=== PATIENT | female | born 1950 | race Caucasian/White ===

== ENCOUNTER 2020-03-30 10:40 | Outpatient (CLI) | payer MEDICARE, SELFPAY ==
[2020-03-30 11:53] LABS: Creatinine Urine 123.5 mg/dL
[2020-03-30 12:04] LABS: Albumin Level 4.2 g/dL (3.5-5.1); Blood Urea Nitrogen 37 mg/dL (7-17); Calcium 9.3 mg/dL (8.4-10.2); Carbon Dioxide 27 mmol/L (22-30); Chloride 104 mmol/L (98-107); Estimated Glomerular Filt Rate 25; Glucose 204 mg/dL (65-105); Phosphorus 3.8 mg/dL (2.5-4.5); Potassium 4.4 mmol/L (3.4-5.0); Sodium 139 mmol/L (137-145)
[2020-03-30 12:08] LABS: Total Protein Urine Random 294 mg/dL
[2020-03-30 12:12] LABS: Parathyroid Intact 71.5 pg/mL (7.5-53.5)
[2020-03-30 13:11] LABS: Vitamin D 25 Hydroxy 57.3 ng/mL
== END 2020-03-30 10:41 | disposition home or self-care (01) ==
PROVIDERS: PCP Family Medicine; Visit Provider Internal Medicine Nephrology
DX: I12.9 Hypertensive chronic kidney disease with stage 1 through stage 4 chronic kidney disease, or unspecified chronic kidney disease (principal); N18.4 Chronic kidney disease, stage 4 (severe); E11.29 Type 2 diabetes mellitus with other diabetic kidney complication; R80.8 Other proteinuria
CPT/HCPCS: 36415; 80069; 82306; 82570; 83970; 84156

== ENCOUNTER 2020-04-17 08:50 | Inpatient (IN) | payer MEDICARE, SELFPAY ==
[2020-04-17] VITALS (14 sets, daily range): BP systolic 99–122; BP diastolic 45–91; PULSE 98–121; RESP 20–30; TEMP 36.6–37.6; O2SAT 91–95; BMI 41.3
--- NOTE | ~2020-04-17 | NM_ITS ---
EXAMINATION: NM pulmonary perfusion DATE: 04/18/2020 11:12 INDICATION: Shortness of breath. TECHNIQUE: 4.85 mCi Tc-99m MAA was administered intravenously for perfusion images. Scintigraphic im ages of the chest were obtained. COMPARISON: chest single view 04/17/20, chest CT 04/17/20 FINDINGS: Perfusion images show large defects in the basilar segments of the right lower lobe and small and mod erate sized defects in the basilar segments of the left lower lobe. These defects match the distribut ion of abnormal chest CT findings. ] IMPRESSION: 1. Nondiagnostic (low or intermediate probability). Reviewed, dictated and finalized at location A.
--- NOTE | ~2020-04-17 | XR_ITS ---
EXAMINATION: XR chest 1V portable DATE: 04/17/2020 10:01 INDICATION: Cough TECHNIQUE: frontal view of the chest was obtained. COMPARISON: Chest radiograph dated 08/13/2016 FINDINGS: The lungs are clear with no focal airspace opacities, pulmonary edema, pleural effusion or pneumothor ax. The cardiomediastinal silhouette is normal. Surgical clips at the left axilla. IMPRESSION: 1. No acute cardiopulmonary disease. Reviewed, dictated and finalized at location A.
--- NOTE | ~2020-04-17 | CT_ITS ---
EXAMINATION: CT chest high resolution wo co DATE: 04/17/2020 12:57 INDICATION: cough, SOB, leukocytosis TECHNIQUE: Computed tomography (CT) of the chest was performed without intravenous contrast. Addition al 3D reconstructions utilizing coronal maximum intensity projection (MIP) were performed. Automated exposure control and iterative reconstruction technique were employed. The dose-length product was 61 5.97 mGy-cm. COMPARISON: None FINDINGS: Linear and patchy airspace opacities in the bilateral lower lobes with dependent predominance. No smo oth septal line thickening to suggest pulmonary edema. There are scattered subsegmental regions of ai r trapping likely related to small airway disease. No pleural effusion or pneumothorax. Cardiomegaly. Atherosclerotic coronary artery disease with likely coronary artery stenting. No pericardial effusio n. No pathologically enlarged thoracic lymphadenopathy. Small sliding-type hiatal hernia. Cholelithia sis in the dependent gallbladder. Mild thoracic spondylosis with bridging osteophytes at multiple lev els consistent with diffuse idiopathic skeletal hyperostosis (DISH). IMPRESSION: 1. Linear and patchy airspace opacities in the bilateral lower lobes which could represent atelectasi s, pneumonia or organizing pneumonia. 2. Cardiomegaly. 3. Cholelithiasis. Reviewed, dictated and finalized at location A. IMPRESSION: 1. Linear and patchy airspace opacities in the bilateral lower lobes which coul d represent atelectasis, pneumonia or organizing pneumonia. 2. Cardiomegaly. 3. Cholelithiasis.
--- NOTE | ~2020-04-17 | XR_ITS ---
XR chest 2V 04/20/2020 16:43 Indication: Pneumonia follow-up Procedure: PA and lateral views of the chest Comparison: Comparison to multiple prior studies sequentially, with oldest reviewed study dated 03/2016. Findings: There is developing bibasilar airspace disease. Heart size normal. Mediastinal contour stab le. No pleural effusion or pneumothorax. There are surgical clips overlying the left chest. Impression: 1: Developing bibasilar airspace disease which may represent atelectasis and/or pneumonia. Reviewed, dictated and finalized at location A. Impression: 1: Developing bibasilar airspace disease which may represent atelectasis and/or pneumonia.
--- NOTE | 2020-04-17 09:16 | ECG_ITS ---
Measurements Intervals [place] Rate: 114 P: 4 NM: 159 QRS: -8 QRSD: 83 T: 34 QT: 331 QTc: 456 Interpretive Statements SINUS TACHYCARDIA BASELINE WANDER- III, AVF, V1 ABNORMAL ECG Electronically Signed On 04-18-2020 7:16:00 CDT by Titi Oviedo D.O.
--- NOTE | 2020-04-17 09:50 | ED.SOB ---
HPI - SOB/Dyspnea General Chief Complaint: Shortness of Breath/Dyspnea Stated Complaint: Fever, sob Source: patient Mode of arrival: wheelchair Limitations: clinical condition (SOB, weakness) History of Present Illness HPI Narrative: 49 y.o. with new onset SOB and D.O.E., onset Saturday, 04/11, associated with progressive weakness, occasional cough and chills Denies fever. Denies chest pain/wheezing. Daily diarrhea and nausea x 7 days with occasional vomiting, last vomited this AM. Denies hematochezia, melena, mucous in stools. Slid off toilet 4 days ago. Laid on floor for about 10 hours before son was able to help her get up. Denies hitting head or subsequent bruising. Has had tenderness in both hips since then. Vaginal bleeding and clots, 04/06 - 04/08. Has not seen a provider ([email or web address]) about this. Hx. of M.I., followed by cardiology. Pt states recently blood sugars have been between 100 and 40. Full code. Treatment prior to arrival: none Related Data Home oxygen amount: none Home Medications Medication Instructions Recorded Confirmed aspirin 81 mg tablet,delayed 81 mg PO DAILY 01/07/20 04/17/20 release cholecalciferol (vitamin D3) 25 1,000 unit PO DAILY cap 01/07/20 04/17/20 mcg (1,000 unit) capsule icosapent ethyl 1 gram capsule 2 gm PO BID 01/07/20 04/17/20 insulin regular hum U-500 conc See Rx Instructions SUB-Q DAILY ml 01/07/20 04/17/20 pantoprazole 40 mg tablet,delayed 40 mg PO QAM 01/07/20 04/17/20 release potassium citrate 10 mEq (1,080 20 meq PO TID tablet 01/07/20 04/17/20 mg) tablet,extended release Allergies Allergy/AdvReac Type Severity Reaction Status Date / Time adhesive tape Allergy Unknown rash Verified 03/02/20 11:08 [email or web address] Allergy Unknown rash Verified 03/02/20 11:08 peach Allergy Unknown throat Verified 03/02/20 11:08 closes adhesive AdvReac Intermediate TAPE= RASH Verified 03/02/20 11:08 DYE USED FOR CLOTHING Allergy Unknown SWELLING, Uncoded 03/02/20 11:08 INFECTION FROM DYE Review of Systems Constitutional: Constitutional: Reports no additional constitutional complaints Eyes: Eyes: Denies photophobia ENT: Reports nasal congestion and Denies sore throat Comments: no loss of smell Cardiovascular: Cardiovascular: Reports no additional cardiovascular complaints Respiratory: Respiratory: Reports no additional respiratory complaints Gastrointestinal: Gastrointestinal: Denies abdominal pain Genitourinary: Genitourinary: Denies dysuria Comments: See HPI Musculoskeletal: Musculoskeletal: Reports no additional musculoskeletal complaints Integumentary/Breasts: Skin/Breast: Denies rash Neurologic: Denies dizziness, Denies syncope and Denies headache(s) Hematologic/Lymphatic: Hematologic/Lymphatic: Denies easy bleeding Allergic/Immunologic: Allergic/Immunologic: Denies wheezing PMFSH Past Medical History Medical History (Updated 04/17/20 @ 13:01 by Abel Jimenez MD) Arthritis Breast cancer Heart disease Hypertension Kidney stone Surgical History Surgical History H/O heart artery stent Family History Family History Mother Family history of diabetes mellitus in first degree relative Other CHF (congestive heart failure), NYHA class I Cancer Diabetes mellitus Family history of arthritis Family history of cardiovascular disease Family history of congestive heart failure Family history of hearing loss Family history of heart disease in male family member before age 55 Family history of malignant neoplasm Family history of obesity Family history of thyroid disease Heart disease Hypertension Thyroid disease Social History Social History (Updated 04/17/20 @ 10:05 by Abel Jimenez MD) Smoking status: Former smoker Alcohol intake: current Comments Stopped smoking many years
[2020-04-17] MEDS: ONDANSETRON INJ 4 MG/2 ML VIAL IV PUSH (10:01)
[2020-04-17] MEDS: LACTATED RINGERS 1,000 ML 100 ML IV CONT (10:02)
[2020-04-17] MEDS: ALBUTEROL SULFATE (*SP) INHALER 8 PUFF INHALATION ×3 (10:46→21:13)
[2020-04-17 11:04] LABS: Hematocrit 40.2 % (35.0-42.0); Hemoglobin 13.3 g/dL (11.7-13.8); Mean Corpuscular HGB Conc 33.1 g/dL (32.0-36.0); Mean Corpuscular Hemoglobin 28.3 pg (27.0-31.0); Mean Corpuscular Volume 85.5 fL (78.0-102.0); Mean Platelet Volume 10.9 fl (9.2-11.8); Platelet Count Result 260 K/mm3 (150-420); Red Cell Distribution Width 15.9 % (11.6-14.4)
--- NOTE | 2020-04-17 11:19 | PC.NURSE ---
Report given to Jared Torres Pt. resting at this time c no c/o. Awaiting lab results.
[2020-04-17 11:24] LABS: Add Urine Microscopic? YES; Appearance Urine Cloudy (Clear); Bilirubin Urine Negative (Negative); Blood Urine 2+ (Negative); Color Urine Yellow (Yellow); Glucose Urine UA Negative (Negative); Ketones Urine Negative (Negative); Leukocyte Esterase Ur 1+ (Negative); Nitrate Urine Negative (Negative); Protein Urine 2+ (Negative); Urobilinogen Urine 0.2 mg/dL (0.2-1.0)
[2020-04-17 11:27] LABS: Lactic Acid 1.6 mmol/L (0.4-2.0)
[2020-04-17 11:29] LABS: Influenza Control Valid (Valid)
[2020-04-17 11:30] LABS: Bacteria Urine 4+ /hpf; Mucus Urine None seen /lpf; Squamous Epithelial Cell Urine Few /hpf (Few); WBC Urine 31-50 /hpf (0-3)
[2020-04-17 11:37] LABS: Alanine Aminotransferase 26 U/L (14-59); Albumin Level 2.1 g/dL (3.4-5.0); Alkaline Phosphatase 124 U/L (46-116); Anion Gap 11.6 mmol/L (7-16); Aspartate Amino Transferase 29 U/L (15-37); Bilirubin,Total 0.9 mg/dL (0.00-1.00); Blood Urea Nitrogen 28 mg/dL (7-18); Carbon Dioxide 25 mmol/L (21-32); Chloride 98 mmol/L (98-108); Creatine Kinase 165 U/L (26-192); Estimated CRCL calculation 25 ml/min; Estimated Glomerular Filt Rate 19; Glucose 84 mg/dL (70-99); Osmolality Calculated 274 mOsm/kg (285-295); Potassium 4.6 mmol/L (3.5-5.1); Sodium 130 mmol/L (136-145); Total Protein 7.3 g/dL (6.4-8.2)
[2020-04-17 11:38] LABS: Ferritin 253 ng/mL (8-252)
[2020-04-17 11:39] LABS: Band Neutrophils Percent 2 % (0-6); Eosinophils Percent Manual 0 % (1-6); Lymphocytes Absolute Manual 0.88 K/mm3 (1.1-4.5); Lymphocytes Percent Manual 4 % (18-44); Monocytes Percent Manual 5 % (3-9); Neutrophils Absolute Manual 20.02 K/mm3 (1.7-7.2); Neutrophils Percent Manual 89 % (46-73); Platelet Estimate Adequate (Adequate); Total Cells Counted 100
[2020-04-17 11:41] LABS: Troponin I < 0.02 ng/mL (0.00-0.056)
[2020-04-17 11:44] LABS: INR 1.1; Prothrombin Time 11.3 Seconds (9.64-11.0)
[2020-04-17 11:49] LABS: D Dimer 4.63 mg/L (0.19-0.50)
[2020-04-17 12:30] LABS: Base Excess ABG -0.8 mmol/L (0-2); HCO3 ABG 21.9 mmol/L (23-29); Oxygen Content ABG 16.5 %vol (16.0-22.0); Oxyhemoglobin 92.7 % (94-100); PCO2 ABG 30.4 mmHg (35-45); PO2 ABG 70.2 mmHg (75-85); Site Drawn RIGHT RADIAL; Total Hemoglobin 12.6 g/dL; pH ABG 7.48 (7.35-7.45)
[2020-04-17 12:31] LABS: Device NASAL CANNULA; Liters per Minute 3.5 LPM; Modified Allen's Test Pass
[2020-04-17] MEDS: ENOXAPARIN 1 MG/KG 120 MG SUB-Q (13:02)
[2020-04-17 13:08] LABS: BNP 108 pg/mL (0-100)
--- NOTE | 2020-04-17 13:10 | PC.NURSE ---
VORB FOR INCREASE LR TO 999ML/HR PER DR VALERO.
--- NOTE | 2020-04-17 13:23 | PM.IMHP ---
H&P: HPI History of Present Illness Chief complaint: Fever, sob <SKYE Alas - Last Filed: 04/17/20 14:50> Narrative: Jesika Falk is a 69 year old female that presented to the ED today with shortness of breath , nausea and vomiting with diarrhea and low blood sugars. patient has a past medical history of arthritis, cancer, hypertension , kidney disease. according to patient she developed weakness with a cough and chills with fevers approximately a week ago. She later developed nausea and diarrhea.she noted that since she has been wearing the mask for 3 weeks she has had a problem with breathing, and when she takes it off her breathing is okay Patient noted that last week while sitting on the toilet she became weak and slid off of the toilet and that her blood sugar has been persistently low. She also noted that she has vaginal bleeding that is new to her. patient notes she has not talked to her primary care physician concerning any of these matters. She notes that her primary care physician never returned any of her calls and she has just changed primary care physicians. she also noted that she does not come to [facility] and she does not know why her son even brought her to this hospital he should have took her to [place]. while patient was in the ED a chest x-ray was completed which was unremarkable, CT suggestive pneumonia, lactic acid normal 1.6 ,creatinine 2.5 GFR 19 UA indicated leukocytes, red blood cells ,white blood cells and bacteria. D-dimer was elevated 4.63 patient was tested for influenza which was negative COVID-19 is pending V/Q scan also pending vital signs 121/75, 119, 26, 93%, on 3 L nasal cannula with a temperature of 99.6?. she did have nausea while in the ED patient will continue to receive fluid Levaquin order to cover UTI as well as pneumonia .patient remains on oxygen with inhalers ordered .she is also receiving Lovenox for possible PE.. Patient denies , CP, palpitation, extremity numbness, lightheadness, dizziness, constipation, , chills or fever. <SKYE Alas - Last Filed: 04/17/20 14:50> Review of Systems Review of Systems: Narrative: CONSTITUTIONAL : patient complains of weakness and fatigue . also previous fevers and chills HEENT: Eyes: No diplopia or blurred vision. ENT: No earache, sore throat or runny nose. CARDIOVASCULAR: No pressure, squeezing, strangling, tightness, heaviness or aching about the chest, neck, axilla or epigastrium. RESPIRATORY: patient complains of cough, shortness of breath, GASTROINTESTINAL: patient complains of nausea, vomiting or diarrhea. GENITOURINARY: No dysuria, frequency or urgency. MUSCULOSKELETAL: No muscle, back pain, joint pain or stiffness. SKIN: No change in skin, hair or nails. NEUROLOGIC: No paresthesias, fasciculations, seizures or weakness. PSYCHIATRIC: No disorder of thought or mood. ENDOCRINE: No heat or cold intolerance, polyuria or polydipsia. HEMATOLOGICAL: No easy bruising or bleeding. gynecological- vaginal bleeding <SKYE Alas - Last Filed: 04/17/20 14:50> [facility] Past Medical History Medical History: Medical History (Updated 04/17/20 @ 14:48 by SKYE Alas) Arthritis Breast cancer Heart disease Hypertension Kidney stone <SKYE Alas - Last Filed: 04/17/20 14:50> Surgical History Surgical History: Surgical History H/O heart artery stent <SKYE Alas - Last Filed: 04/17/20 14:50> Family History Family History: Family History Mother Family history of diabetes mellitus in first degree relative Other CHF (congestive heart failure), NYHA class I Cancer Diabetes mellitus Family history of arthritis Family history of cardiovascular disease Family history of congestive heart failure Family history of hearing loss Family history o
--- NOTE | 2020-04-17 13:46 | PC.NURSE ---
Admitted for weakness, UTI, possible covid, test pending, states no fever at home, states did have a week of nausea vomiting, diarrhea and vaginal bleeding, nothing since saturday, took a shower, felt dizzy, sat on toilet and noted sugar low, did have an episode of falling after shower this week, no injury, just back pain, kemp from ER draining, reviewed visitor policy with patient and oriented to room and hospital setting
[2020-04-17] MEDS: LACTATED RINGERS 1,000 ML 999 ML IV CONT (14:24)
--- NOTE | 2020-04-17 15:29 | PC.NURSE ---
Resting in bed, pillow placed under buttocks for comfort, kemp patent and draining, fluids infusing, taking longer to infuse due to location of IV access and need to reset pump frequently
[2020-04-17 16:27] LABS: Glucose Point of Care 103 (65-105)
[2020-04-17] MEDS: oxyCODONE/ACETAMINOPHEN 5-325 MG TABLET 1 TABLET PO (16:36)
[2020-04-17] MEDS: METOPROLOL SUCCINATE EXT REL 25 MG TABCR PO (16:36)
[2020-04-17] MEDS: METOCLOPRAMIDE HCL 2.5 MG TABLET PO (16:37)
[2020-04-17] MEDS: PHARMACIST COMMUNICATION ORDER 1 EACH XX (19:11)
[2020-04-17] MEDS: METOCLOPRAMIDE HCL 10 MG/10 ML SOLN UDC 2.5 MG PO (21:11)
[2020-04-17 21:56] LABS: Glucose Point of Care 171 (65-105)
[2020-04-18] VITALS (8 sets, daily range): BP systolic 101–141; BP diastolic 55–74; PULSE 96–104; RESP 18–22; TEMP 36.6–37.1; O2SAT 94–96
[2020-04-18 05:20] LABS: Hemoglobin 11.2 g/dL (11.7-13.8); Mean Corpuscular HGB Conc 32.9 g/dL (32.0-36.0); Mean Corpuscular Hemoglobin 28.6 pg (27.0-31.0); Mean Corpuscular Volume 86.7 fL (78.0-102.0); Platelet Count Result 229 K/mm3 (150-420); Red Blood Count 3.92 M/mm3 (4.20-5.40); Red Cell Distribution Width 15.9 % (11.6-14.4)
[2020-04-18 05:38] LABS: Alanine Aminotransferase 24 U/L (14-59); Albumin Level 1.9 g/dL (3.4-5.0); Alkaline Phosphatase 110 U/L (46-116); Anion Gap 11.6 mmol/L (7-16); Aspartate Amino Transferase 21 U/L (15-37); Bilirubin,Total 0.8 mg/dL (0.00-1.00); Blood Urea Nitrogen 27 mg/dL (7-18); Calcium 8.5 mg/dL (8.5-10.1); Carbon Dioxide 26 mmol/L (21-32); Chloride 99 mmol/L (98-108); Estimated CRCL calculation 23 ml/min; Estimated Glomerular Filt Rate 18; Glucose 162 mg/dL (70-99); Osmolality Calculated 283 mOsm/kg (285-295); Potassium 4.6 mmol/L (3.5-5.1); Sodium 132 mmol/L (136-145); Total Protein 6.6 g/dL (6.4-8.2)
[2020-04-18 05:49] LABS: CRP 23.8 mg/dL (0.0-0.9)
[2020-04-18] MEDS: METOCLOPRAMIDE HCL 10 MG/10 ML SOLN UDC 2.5 MG PO (06:11)
[2020-04-18] MEDS: ALBUTEROL SULFATE (*SP) INHALER 8 PUFF INHALATION (06:16)
--- NOTE | 2020-04-18 07:10 | PC.NURSE ---
Dr. Sanz notified of results for pt's blood cultures. No new orders at this time.
[2020-04-18 09:01] LABS: Glucose Point of Care 177 (65-105)
[2020-04-18] MEDS: METOPROLOL SUCCINATE EXT REL 25 MG TABCR PO ×2 (10:04→17:13)
[2020-04-18] MEDS: NIFEdipine 30 MG TAB.ER.24 PO (10:05)
[2020-04-18] MEDS: CHOLECALCIFEROL 1,000 UNIT TABLET 1000 UNITS PO (10:05)
[2020-04-18] MEDS: PANTOPRAZOLE 40 MG TABLET PO (10:05)
[2020-04-18] MEDS: POTASSIUM CHLORIDE 20 MEQ TABLET 40 MEQ PO (10:05)
--- NOTE | 2020-04-18 11:31 | P.PNIM_ITS ---
Progress Note: A&P Assessment and Plan (1) Urinary tract infection: Qualifiers: Hematuria presence: with hematuria Urinary tract infection type: site unspecified Qualified Code(s): N39.0 - Urinary tract infection, site not specified; R31.9 - Hematuria, unspecified <Melissa Chavez NP - Last Filed: 04/18/20 14:43> Code(s): N39.0 - Urinary tract infection, site not specified <Melissa Chavez NP - Last Filed: 04/18/20 14:43> Status: Acute <Melissa Chavez NP - Last Filed: 04/18/20 14:43> Assessment and Plan: * UA indicates leukocytes, red blood cells, wbc's and bacteria * UA culture pending * started IV Levaquin day 2 * Tylenol for fever * urinary kemp catheter remains in place, patent, with clear urine, * will D/C kemp catheter when patient able to use bedside commode or after PT/OT evaulation. <Melissa Chavez NP - Last Filed: 04/18/20 14:43> (2) Breath shortness: Code(s): R06.02 - Shortness of breath <Melissa Chavez NP - Last Filed: 04/18/20 14:43> Status: Acute <Melissa Chavez NP - Last Filed: 04/18/20 14:43> Assessment and Plan: * Rule out COVID-19 versus pneumonia versus PE versus severe deconditioning. * COVID-19 testing pending * Her CT scan showed bilateral lower opacities with cardiomegaly and cholelithiasis (Linear and patchy airspace opacities in the bilateral lower lobes with dependent predominance. No smooth septal line thickening to suggest pulmonary edema). * Her Perfusion scan images show large defects in the basilar segments of the right lower lobe and small and moderate sized defects in the basilar segments of the left lower lobe. These defects match the distribution of abnormal chest CT findings. But a low or intermediate probability of a PE. * Continue IV levaquin dosing * ordered Mucinex and Incentive spirometry. * continue with Albuterol inhaler and nebulizer treatments * continued use of supplemental oxygen per [place] * blood and urine culture pending, ordered sputum cultures. * no fevers noted, WBC 22 inproved to 18 today. * lactic acid 1.6 normal <Melissa Chavez NP - Last Filed: 04/18/20 14:43> (3) Weakness: Code(s): R53.1 - Weakness <Melissa Chavez NP - Last Filed: 04/18/20 14:43> Status: Acute <Melissa Chavez NP - Last Filed: 04/18/20 14:43> Assessment and Plan: * possibly caused by chronic de-conditioning, co-morbities, hypoglycemia, nausea vomiting diarrhea versus infection versus PE * ordered physical therapy/ occupational therapy evaluation after COVID rule out * consider SWING rehab placement when appropriate * discontinue Urinary Kemp catheter tomorrow, likely have improved strength by then, already doing better today with transfers than yesterday. <Melissa Chavez NP - Last Filed: 04/18/20 14:43> (4) Type 2 diabetes mellitus with hyperglycemia, with long-term current use of insulin: Code(s): E11.65 - Type 2 diabetes mellitus with hyperglycemia; Z79.4 - detention (current) use of insulin <Melissa Chavez NP - Last Filed: 04/18/20 14:43> Status: Acute <Melissa Chavez NP - Last Filed: 04/18/20 14:43> Assessment and Plan: * blood sugar controlled, 100-200s today. * patient A1c 10.5 * continue Accu-Cheks with sliding scale and hypoglycemic protocol * patient currently on low-dose sliding scale will adjust as needed * patient home regimen consists 95 units b.i.d. and 50 units once * continue diabetic diet * nausea vomiting diarrhea - completely resolved. * will need to follow up with her regular Endocrinologi
--- NOTE | 2020-04-18 11:31 | PM.IMPN ---
Progress Note: A&P Assessment and Plan (1) Urinary tract infection: Qualifiers: Hematuria presence: with hematuria Urinary tract infection type: site unspecified Qualified Code(s): N39.0 - Urinary tract infection, site not specified; R31.9 - Hematuria, unspecified <Melissa Chavez NP - Last Filed: 04/18/20 14:43> Code(s): N39.0 - Urinary tract infection, site not specified <Melissa Chavez NP - Last Filed: 04/18/20 14:43> Status: Acute <Melissa Chavez NP - Last Filed: 04/18/20 14:43> Assessment and Plan: UA indicates leukocytes, red blood cells, wbc's and bacteria UA culture pending started IV Levaquin day 2 Tylenol for fever urinary kemp catheter remains in place, patent, with clear urine, will D/C kemp catheter when patient able to use bedside commode or after PT/OT evaulation. <Melissa Chavez NP - Last Filed: 04/18/20 14:43> (2) Breath shortness: Code(s): R06.02 - Shortness of breath <Melissa Chavez NP - Last Filed: 04/18/20 14:43> Status: Acute <Melissa Chavez NP - Last Filed: 04/18/20 14:43> Assessment and Plan: Rule out COVID-19 versus pneumonia versus PE versus severe deconditioning. COVID-[address] scan showed bilateral lower opacities with cardiomegaly and cholelithiasis (Linear and patchy airspace opacities in the bilateral lower lobes with dependent predominance. No smooth septal line thickening to suggest pulmonary edema). Her Perfusion scan images show large defects in the basilar segments of the right lower lobe and small and moderate sized defects in the basilar segments of the left lower lobe. These defects match the distribution of abnormal chest CT findings. But a low or intermediate probability of a PE. Continue IV levaquin dosing ordered Mucinex and Incentive spirometry. continue with Albuterol inhaler and nebulizer treatments continued use of supplemental oxygen per [place] blood and urine culture pending, ordered sputum cultures. no fevers noted, WBC 22 inproved to 18 today. lactic acid 1.6 normal <Melissa Chavez NP - Last Filed: 04/18/20 14:43> (3) Weakness: Code(s): R53.1 - Weakness <Melissa Chavez NP - Last Filed: 04/18/20 14:43> Status: Acute <Melissa Chavez NP - Last Filed: 04/18/20 14:43> Assessment and Plan: possibly caused by chronic de-conditioning, co-morbities, hypoglycemia, nausea vomiting diarrhea versus infection versus PE ordered physical therapy/ occupational therapy evaluation after COVID rule out consider SWING rehab placement when appropriate discontinue Urinary Kemp catheter tomorrow, likely have improved strength by then, already doing better today with transfers than yesterday. 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 patient A1c 10.5 continue Accu-Cheks with sliding scale and hypoglycemic protocol patient currently on low-dose sliding scale will adjust as needed patient home regimen consists 95 units b.i.d. and 50 units once continue diabetic diet nausea vomiting diarrhea - completely resolved. will need to follow up with her regular [employer]. <Melissa Chavez NP - Last Filed: 04/18/20 14:43> (5) Stage 4 chronic kidney disease: Code(s): N18.4 - Chronic kidney disease, stage 4 (severe) <Melissa Chavez NP - Last Filed: 04/18/20 14:43> Status: Acute <Melissa Chavez NP - Last Filed: 04/18/20 14:43> Assessment and Plan: rick
[2020-04-18] MEDS: guaiFENesin 12 HR 600 MG TABCR 1200 MG PO ×2 (12:06→20:10)
[2020-04-18 12:18] LABS: Glucose Point of Care 223 (65-105)
[2020-04-18] MEDS: ALBUTEROL SULFATE (*SP) INHALER 4 PUFF INHALATION ×3 (12:18→20:10)
[2020-04-18] MEDS: ENOXAPARIN 120 MG/0.8 ML SYRINGE SUB-Q (14:46)
[2020-04-18 17:36] LABS: Glucose Point of Care 208 (65-105)
[2020-04-18 20:02] LABS: SARS-CoV-2 RNA PCR Negative
[2020-04-18] MEDS: FLUTICASONE PROPIONATE 0.05% NA SPR 16 GM BTL (*BKC) 1 SPRAY NASAL (20:11)
--- NOTE | 2020-04-18 21:31 | PC.NURSE ---
Patient's COVID test is negative. Patient and belongings moved to room 226.
[2020-04-19] VITALS (8 sets, daily range): BP systolic 120–140; BP diastolic 53–76; PULSE 86–95; RESP 18–22; TEMP 36.6–37.5; O2SAT 89–98
[2020-04-19 05:35] LABS: Basophils Absolute Auto 0.04 K/mm3 (0.00-0.10); Basophils Percent Auto 0.3 % (0.0-1.0); Eosinophils Absolute Auto 0.16 K/mm3 (0.02-0.50); Eosinophils Percent Auto 1.2 % (1.0-6.0); Hematocrit 34.4 % (35.0-42.0); Hemoglobin 11.3 g/dL (11.7-13.8); Immature Granulocyte Absolute 0.17 K/mm3 (0.00-0.00); Immature Granulocyte Percent A 1.3 % (0.0-0.0); Lymphocytes Absolute Auto 0.86 K/mm3 (1.10-4.50); Lymphocytes Percent Auto 6.3 % (18.0-42.0); Mean Corpuscular HGB Conc 32.8 g/dL (32.0-36.0); Mean Corpuscular Hemoglobin 28.4 pg (27.0-31.0); Mean Corpuscular Volume 86.4 fL (78.0-102.0); Mean Platelet Volume 11.1 fl (9.2-11.8); Monocytes Absolute Auto 0.74 K/mm3 (0.10-0.90); Monocytes Percent Auto 5.5 % (2.0-11.0); Neutrophils Absolute Auto 11.6 K/mm3 (1.7-7.2); Neutrophils Percent Auto 85.4 % (50.0-70.0); Platelet Count Result 241 K/mm3 (150-420); Red Blood Count 3.98 M/mm3 (4.20-5.40); Red Cell Distribution Width 15.8 % (11.6-14.4); White Blood Count 13.6 K/mm3 (4.8-10.8)
[2020-04-19 05:55] LABS: Alanine Aminotransferase 24 U/L (14-59); Albumin Level 1.9 g/dL (3.4-5.0); Alkaline Phosphatase 121 U/L (46-116); Anion Gap 13.4 mmol/L (7-16); Aspartate Amino Transferase 20 U/L (15-37); Bilirubin,Total 0.6 mg/dL (0.00-1.00); Blood Urea Nitrogen 28 mg/dL (7-18); Calcium 8.8 mg/dL (8.5-10.1); Carbon Dioxide 25 mmol/L (21-32); Chloride 100 mmol/L (98-108); Estimated CRCL calculation 27 ml/min; Estimated Glomerular Filt Rate 21; Glucose 173 mg/dL (70-99); Magnesium 1.9 mg/dL (1.8-2.4); Osmolality Calculated 287 mOsm/kg (285-295); Potassium 4.4 mmol/L (3.5-5.1); Sodium 134 mmol/L (136-145); Total Protein 7.2 g/dL (6.4-8.2)
[2020-04-19 08:19] LABS: BNP 134 pg/mL (0-100)
[2020-04-19 08:34] LABS: CRP 23.4 mg/dL (0.0-0.9)
[2020-04-19] MEDS: CHOLECALCIFEROL 1,000 UNIT TABLET 1000 UNITS PO (08:57)
[2020-04-19] MEDS: guaiFENesin 12 HR 600 MG TABCR 1200 MG PO ×2 (08:57→20:42)
[2020-04-19] MEDS: NIFEdipine 30 MG TAB.ER.24 PO (08:57)
[2020-04-19] MEDS: METOPROLOL SUCCINATE EXT REL 25 MG TABCR PO (08:58)
[2020-04-19] MEDS: POTASSIUM CHLORIDE 20 MEQ TABLET 40 MEQ PO (08:58)
[2020-04-19] MEDS: LORATADINE 10 MG TABLET PO (08:58)
[2020-04-19] MEDS: PANTOPRAZOLE 40 MG TABLET PO (08:58)
[2020-04-19] MEDS: FLUTICASONE PROPIONATE 0.05% NA SPR 16 GM BTL (*BKC) 1 SPRAY NASAL ×2 (08:59→20:42)
[2020-04-19 09:00] LABS: Erythrocyte Sedimentation Rate 52 mm/hr (0-20)
[2020-04-19] MEDS: ALBUTEROL SULFATE (*SP) INHALER 4 PUFF INHALATION ×4 (09:00→20:43)
--- NOTE | 2020-04-19 10:33 | PC.NURSE ---
Lott discontinued, in chair, encouraged to call for assistance up to void
[2020-04-19 12:09] LABS: Glucose Point of Care 200 (65-105)
--- NOTE | 2020-04-19 12:46 | PC.NURSE ---
Up to SBA to void
--- NOTE | 2020-04-19 12:51 | PC.NURSE ---
SBA used from bathroom to bed, denies needs, no dizzyness, telemetry SR 80's
--- NOTE | 2020-04-19 13:51 | PHAR ---
04/19/20 13:50 - spoke /[facility]. pt. takes metoprolol tartrate 25mg bid, not metoprolol succinate 25mg ER bid. Informed shank sorter, changing her inpatient regimen. tls
[2020-04-19] MEDS: ENOXAPARIN 120 MG/0.8 ML SYRINGE SUB-Q (14:48)
--- NOTE | 2020-04-19 15:22 | PC.NURSE ---
Assisted up to void, used walker, stress incontinence noted, to chair when done
--- NOTE | 2020-04-19 15:32 | P.PNIM_ITS ---
Progress Note: A&P Assessment and Plan (1) Urinary tract infection: Qualifiers: Hematuria presence: with hematuria Urinary tract infection type: site unspecified Qualified Code(s): N39.0 - Urinary tract infection, site not specified; R31.9 - Hematuria, unspecified Code(s): N39.0 - Urinary tract infection, site not specified Status: Acute Assessment and Plan: * UA indicates leukocytes, red blood cells, wbc's and bacteria * UA culture Positive for E coli with sensitivities to Levaquin * continue IV Levaquin day 3 * Tylenol for fever * urinary kemp catheter remains in place, patent, with clear urine, * will D/C kemp catheter when patient able to use bedside commode or after PT/OT evaulation. (2) Breath shortness: Code(s): R06.02 - Shortness of breath Status: Acute Assessment and Plan: * Ruled out COVID-19 and ruled out PE. * Likely CAP pneumonia versus severe deconditioning. * Her CT scan showed bilateral lower opacities with cardiomegaly and cholelithiasis (Linear and patchy airspace opacities in the bilateral lower lobes with dependent predominance. No smooth septal line thickening to suggest pulmonary edema). * Her Perfusion scan images show large defects in the basilar segments of the right lower lobe and small and moderate sized defects in the basilar segments of the left lower lobe. These defects match the distribution of abnormal chest CT findings. But a low or intermediate probability of a PE. * Continue IV levaquin dosing, day 3 today. * ordered Mucinex and Incentive spirometry. * continue with Albuterol inhaler and nebulizer treatments * continued use of supplemental oxygen per [place] PRN, wean as possible. * would benefit from sleep study after discharge. * no fevers noted, WBC 22 inproved to 18 and then 13. 6 today. * lactic acid 1.6 normal * sputum culture ordered, but none able to be collected yet. (3) Weakness: Code(s): R53.1 - Weakness Status: Acute Assessment and Plan: * possibly caused by chronic de-conditioning, co-morbities, hypoglycemia, nausea vomiting diarrhea versus infection versus PE * ordered physical therapy/ occupational therapy evaluation after COVID rule out * consider SWING rehab placement when appropriate * discontinue Urinary Kemp catheter today and void independently without difficulty or complaints. * eating and keeping up with hydration on her own (4) Type 2 diabetes mellitus with hyperglycemia, with long-term current use of insulin: Code(s): E11.65 - Type 2 diabetes mellitus with hyperglycemia; Z79.4 - shelter (current) use of insulin Status: Acute Assessment and Plan: * blood sugar controlled, 100-200s today. * patient A1c 10.5 * continue Accu-Cheks with sliding scale and hypoglycemic protocol * patient currently on low-dose sliding scale will adjust as needed * patient home regimen consists 95 units b.i.d. and 50 units once * continue diabetic diet * nausea vomiting diarrhea - completely resolved. * will need to follow up with her regular Doormaker. (5) Stage 4 chronic kidney disease: Code(s): N18.4 - Chronic kidney disease, stage 4 (severe) Status: Acute Assessment and Plan: * patient's creatinine on admission 2.45, slightly worse 2.61, then improved today at 2.3 * may need to changed medications to avoid further nephrotoxic effects and renal dose medications * creatinine baseline appears to be between 1.8 in 2.0 * continue fluid challenge with hydration * avoid CT contrast * repeating CMP in morning. * GFR 18
--- NOTE | 2020-04-19 15:32 | PM.IMPN ---
Progress Note: A&P Assessment and Plan (1) Urinary tract infection: Qualifiers: Hematuria presence: with hematuria Urinary tract infection type: site unspecified Qualified Code(s): N39.0 - Urinary tract infection, site not specified; R31.9 - Hematuria, unspecified Code(s): N39.0 - Urinary tract infection, site not specified Status: Acute Assessment and Plan: UA indicates leukocytes, red blood cells, wbc's and bacteria UA culture Positive for E coli with sensitivities to Levaquin continue IV Levaquin day 3 Tylenol for fever urinary kemp catheter remains in place, patent, with clear urine, will D/C kemp catheter when patient able to use bedside commode or after PT/OT evaulation. (2) Breath shortness: Code(s): R06.02 - Shortness of breath Status: Acute Assessment and Plan: Ruled out COVID-19 and ruled out PE. Likely CAP pneumonia versus severe deconditioning. Her CT scan showed bilateral lower opacities with cardiomegaly and cholelithiasis (Linear and patchy airspace opacities in the bilateral lower lobes with dependent predominance. No smooth septal line thickening to suggest pulmonary edema). Her Perfusion scan images show large defects in the basilar segments of the right lower lobe and small and moderate sized defects in the basilar segments of the left lower lobe. These defects match the distribution of abnormal chest CT findings. But a low or intermediate probability of a PE. Continue IV levaquin dosing, day 3 today. ordered Mucinex and Incentive spirometry. continue with Albuterol inhaler and nebulizer treatments continued use of supplemental oxygen per [place] PRN, wean as possible. would benefit from sleep study after discharge. no fevers noted, WBC 22 inproved to 18 and then 13. 6 today. lactic acid 1.6 normal sputum culture ordered, but none able to be collected yet. (3) Weakness: Code(s): R53.1 - Weakness Status: Acute Assessment and Plan: possibly caused by chronic de-conditioning, co-morbities, hypoglycemia, nausea vomiting diarrhea versus infection versus PE ordered physical therapy/ occupational therapy evaluation after COVID rule out consider SWING rehab placement when appropriate discontinue Urinary Kemp catheter today and void independently without difficulty or complaints. eating and keeping up with hydration on her own (4) Type 2 diabetes mellitus with hyperglycemia, with long-term current use of insulin: Code(s): E11.65 - Type 2 diabetes mellitus with hyperglycemia; Z79.4 - jail (current) use of insulin Status: Acute Assessment and Plan: blood sugar controlled, 100-200s today. patient A1c 10.5 continue Accu-Cheks with sliding scale and hypoglycemic protocol patient currently on low-dose sliding scale will adjust as needed patient home regimen consists 95 units b.i.d. and 50 units once continue diabetic diet nausea vomiting diarrhea - completely resolved. will need to follow up with her regular Flavor Extractor. (5) Stage 4 chronic kidney disease: Code(s): N18.4 - Chronic kidney disease, stage 4 (severe) Status: Acute Assessment and Plan: patient's creatinine on admission 2.45, slightly worse 2.61, then improved today at 2.3 may need to changed medications to avoid further nephrotoxic effects and renal dose medications creatinine baseline appears to be between 1.8 in 2.0 continue fluid challenge with hydration avoid CT contrast repeating CMP in morning. GFR 18 and 19 baseline appears to be in a 26 will need to follow up with her regular Chemist Pharmaceutical (6) Essential hypertension: Code(s): I10 - Essential (primary) hypertension Status: Acute Assessment and Plan: CONTROLLED at this time, CHRONIC. blood pressure 123/59 continue home medication metoprolol 25 mg b.i.d.,nifedipine 30 mg daily vital signs as or
--- NOTE | 2020-04-19 15:45 | PC.NURSE ---
Recliner adjusted for patient
[2020-04-19 16:31] LABS: Glucose Point of Care 195 (65-105)
[2020-04-19] MEDS: traZODone HCL 50 MG TABLET PO (20:42)
[2020-04-19 20:54] LABS: Glucose Point of Care 222 (65-105)
[2020-04-20] VITALS (8 sets, daily range): BP systolic 119–141; BP diastolic 60–81; PULSE 70–107; RESP 18–22; TEMP 36.6–37.1; O2SAT 92–94
--- NOTE | 2020-04-20 02:28 | PC.NURSE ---
Patient up to bedside recliner per her request at this time.
[2020-04-20 05:00] LABS: Basophils Absolute Auto 0.05 K/mm3 (0.00-0.10); Basophils Percent Auto 0.4 % (0.0-1.0); Eosinophils Percent Auto 1.7 % (1.0-6.0); Hematocrit 37.5 % (35.0-42.0); Hemoglobin 12.1 g/dL (11.7-13.8); Immature Granulocyte Absolute 0.18 K/mm3 (0.00-0.00); Immature Granulocyte Percent A 1.6 % (0.0-0.0); Lymphocytes Absolute Auto 1.03 K/mm3 (1.10-4.50); Lymphocytes Percent Auto 8.9 % (18.0-42.0); Mean Corpuscular HGB Conc 32.3 g/dL (32.0-36.0); Mean Corpuscular Hemoglobin 27.9 pg (27.0-31.0); Mean Corpuscular Volume 86.4 fL (78.0-102.0); Mean Platelet Volume 11.2 fl (9.2-11.8); Monocytes Absolute Auto 0.56 K/mm3 (0.10-0.90); Monocytes Percent Auto 4.8 % (2.0-11.0); Neutrophils Absolute Auto 9.6 K/mm3 (1.7-7.2); Neutrophils Percent Auto 82.6 % (50.0-70.0); Platelet Count Result 283 K/mm3 (150-420); Red Blood Count 4.34 M/mm3 (4.20-5.40); Red Cell Distribution Width 15.7 % (11.6-14.4); White Blood Count 11.6 K/mm3 (4.8-10.8)
[2020-04-20 05:17] LABS: Alanine Aminotransferase 34 U/L (14-59); Albumin Level 2.1 g/dL (3.4-5.0); Alkaline Phosphatase 117 U/L (46-116); Anion Gap 11.6 mmol/L (7-16); Aspartate Amino Transferase 32 U/L (15-37); Bilirubin,Total 0.4 mg/dL (0.00-1.00); Blood Urea Nitrogen 30 mg/dL (7-18); Calcium 9.2 mg/dL (8.5-10.1); Carbon Dioxide 27 mmol/L (21-32); Chloride 100 mmol/L (98-108); Estimated CRCL calculation 27 ml/min; Estimated Glomerular Filt Rate 21; Glucose 204 mg/dL (70-99); Osmolality Calculated 290 mOsm/kg (285-295); Potassium 4.6 mmol/L (3.5-5.1); Sodium 134 mmol/L (136-145); Total Protein 7.7 g/dL (6.4-8.2)
--- NOTE | 2020-04-20 07:12 | PM.EVENT ---
Event Note Event Note Event Note: For 04/19/20: I have examined the patient and reviewed the chart. I discussed the patient's care the with A Scott MAGALLON and agree with her assessment and plan.
[2020-04-20 08:01] LABS: Glucose Point of Care 190 (65-105)
[2020-04-20] MEDS: FLUTICASONE PROPIONATE 0.05% NA SPR 16 GM BTL (*BKC) 1 SPRAY NASAL ×2 (09:01→21:03)
[2020-04-20] MEDS: ALBUTEROL SULFATE (*SP) INHALER 4 PUFF INHALATION ×4 (09:02→21:03)
[2020-04-20] MEDS: METOPROLOL TARTRATE 25 MG TABLET PO ×2 (09:03→21:03)
[2020-04-20] MEDS: POTASSIUM CHLORIDE 20 MEQ TABLET 40 MEQ PO (09:04)
[2020-04-20] MEDS: CHOLECALCIFEROL 1,000 UNIT TABLET 1000 UNITS PO (09:04)
[2020-04-20] MEDS: PANTOPRAZOLE 40 MG TABLET PO (09:04)
[2020-04-20] MEDS: LORATADINE 10 MG TABLET PO (09:04)
[2020-04-20] MEDS: guaiFENesin 12 HR 600 MG TABCR 1200 MG PO ×2 (09:04→21:03)
[2020-04-20] MEDS: NIFEdipine 30 MG TAB.ER.24 PO (09:04)
--- NOTE | 2020-04-20 11:11 | P.PNIM_ITS ---
Progress Note: A&P Assessment and Plan (1) Urinary tract infection: Qualifiers: Hematuria presence: with hematuria Urinary tract infection type: site unspecified Qualified Code(s): N39.0 - Urinary tract infection, site not specified; R31.9 - Hematuria, unspecified Code(s): N39.0 - Urinary tract infection, site not specified Status: Acute Assessment and Plan: * UA indicates leukocytes, red blood cells, wbc's and bacteria * UA culture Positive for E coli with sensitivities to Levaquin * continue IV Levaquin day 4, may transition to oral Levaquin to see if patient tolerates . * Tylenol for fever * urinary kemp catheter remains in place, patent, with clear urine, * will D/C kemp catheter when patient able to use bedside commode or after PT/OT evaulation. (2) Breath shortness: Code(s): R06.02 - Shortness of breath Status: Acute Assessment and Plan: * Ruled out COVID-19 and ruled out PE. * Likely CAP pneumonia versus severe deconditioning. * Her CT scan showed bilateral lower opacities with cardiomegaly and cholelithiasis (Linear and patchy airspace opacities in the bilateral lower lobes with dependent predominance. No smooth septal line thickening to suggest pulmonary edema). * Her Perfusion scan images show large defects in the basilar segments of the right lower lobe and small and moderate sized defects in the basilar segments of the left lower lobe. These defects match the distribution of abnormal chest CT findings. But a low or intermediate probability of a PE. * Continue IV levaquin dosing, day 3 today. * ordered Mucinex and Incentive spirometry. * continue with Albuterol inhaler and nebulizer treatments * continued use of supplemental oxygen per [place] PRN, wean as possible. * would benefit from sleep study after discharge. * no fevers noted, WBC 22 inproved to 18 and then 13. 6 today. * lactic acid 1.6 normal * sputum culture ordered, but none able to be collected yet. (3) Weakness: Code(s): R53.1 - Weakness Status: Acute Assessment and Plan: * possibly caused by chronic de-conditioning, co-morbities, hypoglycemia, nausea vomiting diarrhea versus infection versus PE * ordered physical therapy/ occupational therapy evaluation after COVID rule out * consider SWING rehab placement when appropriate * discontinue Urinary Kemp catheter today and void independently without difficulty or complaints. * eating and keeping up with hydration on her own (4) Type 2 diabetes mellitus with hyperglycemia, with long-term current use of insulin: Code(s): E11.65 - Type 2 diabetes mellitus with hyperglycemia; Z79.4 - half-way (current) use of insulin Status: Acute Assessment and Plan: * blood sugar controlled, 100-200s today. * patient A1c 10.5 * continue Accu-Cheks with sliding scale and hypoglycemic protocol * patient currently on low-dose sliding scale will adjust as needed * patient home regimen consists 95 units b.i.d. and 50 units once * continue diabetic diet * nausea vomiting diarrhea - completely resolved. * will need to follow up with her regular Director Prison. (5) Stage 4 chronic kidney disease: Code(s): N18.4 - Chronic kidney disease, stage 4 (severe) Status: Acute Assessment and Plan: * patient's creatinine on admission 2.45, slightly worse 2.61, then improved today 2.26 * may need to changed medications to avoid further nephrotoxic effects and renal dose medications * creatinine baseline appears to be between 1.8 in 2.0 * continue fluid challenge with hydration *
--- NOTE | 2020-04-20 11:11 | PM.IMPN ---
Progress Note: A&P Assessment and Plan (1) Urinary tract infection: Qualifiers: Hematuria presence: with hematuria Urinary tract infection type: site unspecified Qualified Code(s): N39.0 - Urinary tract infection, site not specified; R31.9 - Hematuria, unspecified Code(s): N39.0 - Urinary tract infection, site not specified Status: Acute Assessment and Plan: UA indicates leukocytes, red blood cells, wbc's and bacteria UA culture Positive for E coli with sensitivities to Levaquin continue IV Levaquin day 4, may transition to oral Levaquin to see if patient tolerates . Tylenol for fever urinary kemp catheter remains in place, patent, with clear urine, will D/C kemp catheter when patient able to use bedside commode or after PT/OT evaulation. (2) Breath shortness: Code(s): R06.02 - Shortness of breath Status: Acute Assessment and Plan: Ruled out COVID-19 and ruled out PE. Likely CAP pneumonia versus severe deconditioning. Her CT scan showed bilateral lower opacities with cardiomegaly and cholelithiasis (Linear and patchy airspace opacities in the bilateral lower lobes with dependent predominance. No smooth septal line thickening to suggest pulmonary edema). Her Perfusion scan images show large defects in the basilar segments of the right lower lobe and small and moderate sized defects in the basilar segments of the left lower lobe. These defects match the distribution of abnormal chest CT findings. But a low or intermediate probability of a PE. Continue IV levaquin dosing, day 3 today. ordered Mucinex and Incentive spirometry. continue with Albuterol inhaler and nebulizer treatments continued use of supplemental oxygen per [place] PRN, wean as possible. would benefit from sleep study after discharge. no fevers noted, WBC 22 inproved to 18 and then 13. 6 today. lactic acid 1.6 normal sputum culture ordered, but none able to be collected yet. (3) Weakness: Code(s): R53.1 - Weakness Status: Acute Assessment and Plan: possibly caused by chronic de-conditioning, co-morbities, hypoglycemia, nausea vomiting diarrhea versus infection versus PE ordered physical therapy/ occupational therapy evaluation after COVID rule out consider SWING rehab placement when appropriate discontinue Urinary Kemp catheter today and void independently without difficulty or complaints. eating and keeping up with hydration on her own (4) Type 2 diabetes mellitus with hyperglycemia, with long-term current use of insulin: Code(s): E11.65 - Type 2 diabetes mellitus with hyperglycemia; Z79.4 - prison (current) use of insulin Status: Acute Assessment and Plan: blood sugar controlled, 100-200s today. patient A1c 10.5 continue Accu-Cheks with sliding scale and hypoglycemic protocol patient currently on low-dose sliding scale will adjust as needed patient home regimen consists 95 units b.i.d. and 50 units once continue diabetic diet nausea vomiting diarrhea - completely resolved. will need to follow up with her regular Account Support Analyst. (5) Stage 4 chronic kidney disease: Code(s): N18.4 - Chronic kidney disease, stage 4 (severe) Status: Acute Assessment and Plan: patient's creatinine on admission 2.45, slightly worse 2.61, then improved today 2.26 may need to changed medications to avoid further nephrotoxic effects and renal dose medications creatinine baseline appears to be between 1.8 in 2.0 continue fluid challenge with hydration avoid CT contrast repeating CMP in morning. GFR 18 and 19 baseline appears to be in a 26 will need to follow up with her regular District Manager (6) Essential hypertension: Code(s): I10 - Essential (primary) hypertension Status: Acute Assessment and Plan: CONTROLLED at this time, CHRONIC. blood pressure and HR stable continue home medicati
[2020-04-20 11:40] LABS: Glucose Point of Care 214 (65-105)
[2020-04-20] MEDS: BENZONATATE 100 MG CAPSULE 200 MG PO ×2 (14:20→17:04)
[2020-04-20] MEDS: ENOXAPARIN 40 MG/0.4 ML SYRINGE SUB-Q (14:21)
[2020-04-20 17:08] LABS: Glucose Point of Care 190 (65-105)
[2020-04-20] MEDS: traZODone HCL 50 MG TABLET PO (21:03)
[2020-04-20 21:21] LABS: Glucose Point of Care 237 (65-105)
[2020-04-21] VITALS (10 sets, daily range): BP systolic 124–142; BP diastolic 68–80; PULSE 87–108; RESP 18–20; TEMP 36.9–37.4; O2SAT 91–92
[2020-04-21 05:27] LABS: Basophils Absolute Auto 0.07 K/mm3 (0.00-0.10); Basophils Percent Auto 0.8 % (0.0-1.0); Eosinophils Absolute Auto 0.21 K/mm3 (0.02-0.50); Eosinophils Percent Auto 2.3 % (1.0-6.0); Hematocrit 37.7 % (35.0-42.0); Hemoglobin 12.2 g/dL (11.7-13.8); Immature Granulocyte Absolute 0.18 K/mm3 (0.00-0.00); Lymphocytes Absolute Auto 1.22 K/mm3 (1.10-4.50); Lymphocytes Percent Auto 13.6 % (18.0-42.0); Mean Corpuscular HGB Conc 32.4 g/dL (32.0-36.0); Mean Corpuscular Volume 86.7 fL (78.0-102.0); Mean Platelet Volume 10.4 fl (9.2-11.8); Monocytes Absolute Auto 0.52 K/mm3 (0.10-0.90); Monocytes Percent Auto 5.8 % (2.0-11.0); Neutrophils Absolute Auto 6.8 K/mm3 (1.7-7.2); Neutrophils Percent Auto 75.5 % (50.0-70.0); Platelet Count Result 284 K/mm3 (150-420); Red Blood Count 4.35 M/mm3 (4.20-5.40); Red Cell Distribution Width 15.7 % (11.6-14.4)
[2020-04-21 05:43] LABS: Alanine Aminotransferase 37 U/L (14-59); Alkaline Phosphatase 107 U/L (46-116); Anion Gap 10.5 mmol/L (7-16); Aspartate Amino Transferase 37 U/L (15-37); Bilirubin,Total 0.4 mg/dL (0.00-1.00); Blood Urea Nitrogen 34 mg/dL (7-18); Calcium 9.1 mg/dL (8.5-10.1); Carbon Dioxide 27 mmol/L (21-32); Chloride 102 mmol/L (98-108); Estimated CRCL calculation 27 ml/min; Estimated Glomerular Filt Rate 22; Glucose 230 mg/dL (70-99); Osmolality Calculated 294 mOsm/kg (285-295); Potassium 4.5 mmol/L (3.5-5.1); Sodium 135 mmol/L (136-145); Total Protein 7.4 g/dL (6.4-8.2)
[2020-04-21 07:36] LABS: Glucose Point of Care 206 (65-105)
[2020-04-21] MEDS: methylPREDNISolone SOD SUCC 125 MG VIAL 60 MG IV PUSH (08:00)
--- NOTE | 2020-04-21 08:00 | PC.NURSE ---
SBA, u sed walker to bathroom thent o chair for breakfast, tolerated well, no assistance provided, gait steady
[2020-04-21] MEDS: ALBUTEROL SULFATE (*SP) INHALER 2 PUFF INHALATION ×4 (09:31→20:00)
[2020-04-21] MEDS: FLUTICASONE PROPIONATE 0.05% NA SPR 16 GM BTL (*BKC) 1 SPRAY NASAL ×2 (09:31→20:00)
[2020-04-21] MEDS: CHOLECALCIFEROL 1,000 UNIT TABLET 1000 UNITS PO (09:32)
[2020-04-21] MEDS: guaiFENesin 12 HR 600 MG TABCR 1200 MG PO ×2 (09:32→20:00)
[2020-04-21] MEDS: METOPROLOL TARTRATE 25 MG TABLET PO ×2 (09:33→20:00)
[2020-04-21] MEDS: PANTOPRAZOLE 40 MG TABLET PO (09:33)
[2020-04-21] MEDS: BENZONATATE 100 MG CAPSULE 200 MG PO ×3 (09:34→16:51)
[2020-04-21] MEDS: LORATADINE 10 MG TABLET PO (09:34)
[2020-04-21] MEDS: POTASSIUM CHLORIDE 20 MEQ TABLET 40 MEQ PO (09:34)
[2020-04-21] MEDS: NIFEdipine 30 MG TAB.ER.24 PO (09:35)
--- NOTE | 2020-04-21 10:09 | HOMEO2EVAL ---
Home Oxygen Evaluation RC: Home Oxygen (O2) Evaluation Start: 04/21/20 09:34 Freq: ONCE Status: Active Protocol: RPE Activity Type Activity Date Activity User E-Sign Co-Sign Detail Recorded Client Recorded Date Recorded By Document 04/21/20 10:06 ALVIN [id number] 04/21/20 10:09 SJB Document 04/21/20 10:07 ALVIN [id number] 04/21/20 10:09 SJB 04/21/20 04/21/20 10:06 10:07 Home O2 Evaluation Test Phase Resting Exercise Oxygen Delivery Room Air Room Air Pulse Oximetry (90-100 %) 92 91 Pulse Rate (60-100 beats/min) 87 107 H Activity Tolerance Good Good Rating of Perceived Dyspnea (PD) +1 Mild, +2 Mild, Some Noticeable to Difficulty, the Participant Noticeable to but Not to an the Observer Observer Ambulation Distance (feet) 300 Home Oxygen Evaluation Comments Pt walked pushing wheelchair on room air. Walked approx 300 ft, swiftly , with no complaints and no desaturation . Tolerated very well. Treatment Charges O2 Evaluation
--- NOTE | 2020-04-21 10:54 | PC.NURSE ---
Up from chair and to bed, levaquin infusing
--- NOTE | 2020-04-21 11:18 | P.DS_ITS ---
DS: Admitting Diagnosis Admitting Diagnosis Admitting Diagnosis: Urinary tract infection, site not specified DS: Discharge Diagnosis Discharge Diagnosis (1) Urinary tract infection: Qualifiers: Hematuria presence: with hematuria Urinary tract infection type: site unspecified Qualified Code(s): N39.0 - Urinary tract infection, site not specified; R31.9 - Hematuria, unspecified Code(s): N39.0 - Urinary tract infection, site not specified Status: Acute Assessment and Plan: * UA indicates leukocytes, red blood cells, wbc's and bacteria * UA culture Positive for E coli with sensitivities to Levaquin * continue IV Levaquin (received 3 IV doses equivalent to 6 days of therapy at 750mg IV every other day), discharged onto 500mg daily oral Levaquin for 4 days to complete a full 10 day course at home. * Tylenol for fever * urinary kemp catheter remains in place, patent, with clear urine, * will D/C kepm catheter when patient able to use bedside commode or after PT /OT evaulation. * no urinary s/s or concerns, no hematuria or pain (2) Breath shortness: Code(s): R06.02 - Shortness of breath Status: Acute Assessment and Plan: * Ruled out COVID-19 and ruled out PE. * Likely CAP pneumonia versus severe deconditioning. * Her CT scan showed bilateral lower opacities with cardiomegaly and cholelithiasis (Linear and patchy airspace opacities in the bilateral lower lobes with dependent predominance. No smooth septal line thickening to suggest pulmonary edema). * Her Perfusion scan images show large defects in the basilar segments of the right lower lobe and small and moderate sized defects in the basilar segments of the left lower lobe. These defects match the distribution of abnormal chest CT findings. But a low or intermediate probability of a PE. * ordered Mucinex and Incentive spirometry. * continue with Albuterol inhaler and nebulizer treatments * would benefit from sleep study after discharge. * no fevers noted, WBC 22 inproved to 18 and then 13. 6 today. * lactic acid 1.6 normal * sputum culture ordered, but none able to be collected yet. * Home O2 study was completed, patient O2 sats remained>90% on room air, no need for home O2 (3) Weakness: Code(s): R53.1 - Weakness Status: Acute Assessment and Plan: * possibly caused by chronic de-conditioning, co-morbities, hypoglycemia, nausea vomiting diarrhea versus infection versus PE * ordered physical therapy/ occupational therapy evaluation after COVID rule out * consider SWING rehab placement when appropriate * discontinue Urinary Kemp catheter today and void independently without difficulty or complaints. * eating and keeping up with hydration on her own (4) Type 2 diabetes mellitus with hyperglycemia, with long-term current use of insulin: Code(s): E11.65 - Type 2 diabetes mellitus with hyperglycemia; Z79.4 - superintendent container terminal (cu rrent) use of insulin Status: Acute Assessment and Plan: * blood sugar controlled, 100-200s today. * patient A1c 10.5 * continue Accu-Cheks with sliding scale and hypoglycemic protocol * patient currently on low-dose sliding scale will adjust as needed * patient home regimen consists 95 units b.i.d. and 50 units once * continue diabetic diet * nausea vomiting diarrhea - completely resolved. * will need to follow up with her regular Lobby Concierge. (5) Stage 4 chronic kidney disease: Code(s): N18.4 - Chronic kidney disease, stage 4 (severe) Status: Acute Assessment and Plan: * patient's creatinine on admiss
--- NOTE | 2020-04-21 11:18 | PM.DS ---
DS: Admitting Diagnosis Admitting Diagnosis Admitting Diagnosis: Urinary tract infection, site not specified DS: Discharge Diagnosis Discharge Diagnosis (1) Urinary tract infection: Qualifiers: Hematuria presence: with hematuria Urinary tract infection type: site unspecified Qualified Code(s): N39.0 - Urinary tract infection, site not specified; R31.9 - Hematuria, unspecified Code(s): N39.0 - Urinary tract infection, site not specified Status: Acute Assessment and Plan: UA indicates leukocytes, red blood cells, wbc's and bacteria UA culture Positive for E coli with sensitivities to Levaquin continue IV Levaquin (received 3 IV doses equivalent to 6 days of therapy at 750mg IV every other day), discharged onto 500mg daily oral Levaquin for 4 days to complete a full 10 day course at home. Tylenol for fever urinary kemp catheter remains in place, patent, with clear urine, will D/C kemp catheter when patient able to use bedside commode or after PT/OT evaulation. no urinary s/s or concerns, no hematuria or pain (2) Breath shortness: Code(s): R06.02 - Shortness of breath Status: Acute Assessment and Plan: Ruled out COVID-19 and ruled out PE. Likely CAP pneumonia versus severe deconditioning. Her CT scan showed bilateral lower opacities with cardiomegaly and cholelithiasis (Linear and patchy airspace opacities in the bilateral lower lobes with dependent predominance. No smooth septal line thickening to suggest pulmonary edema). Her Perfusion scan images show large defects in the basilar segments of the right lower lobe and small and moderate sized defects in the basilar segments of the left lower lobe. These defects match the distribution of abnormal chest CT findings. But a low or intermediate probability of a PE. ordered Mucinex and Incentive spirometry. continue with Albuterol inhaler and nebulizer treatments would benefit from sleep study after discharge. no fevers noted, WBC 22 inproved to 18 and then 13. 6 today. lactic acid 1.6 normal sputum culture ordered, but none able to be collected yet. Home O2 study was completed, patient O2 sats remained>90% on room air, no need for home O2 (3) Weakness: Code(s): R53.1 - Weakness Status: Acute Assessment and Plan: possibly caused by chronic de-conditioning, co-morbities, hypoglycemia, nausea vomiting diarrhea versus infection versus PE ordered physical therapy/ occupational therapy evaluation after COVID rule out consider SWING rehab placement when appropriate discontinue Urinary Kemp catheter today and void independently without difficulty or complaints. eating and keeping up with hydration on her own (4) Type 2 diabetes mellitus with hyperglycemia, with long-term current use of insulin: Code(s): E11.65 - Type 2 diabetes mellitus with hyperglycemia; Z79.4 - ad terminal makeup operator (current) use of insulin Status: Acute Assessment and Plan: blood sugar controlled, 100-200s today. patient A1c 10.5 continue Accu-Cheks with sliding scale and hypoglycemic protocol patient currently on low-dose sliding scale will adjust as needed patient home regimen consists 95 units b.i.d. and 50 units once continue diabetic diet nausea vomiting diarrhea - completely resolved. will need to follow up with her regular Compress Machine Operator. (5) Stage 4 chronic kidney disease: Code(s): N18.4 - Chronic kidney disease, stage 4 (severe) Status: Acute Assessment and Plan: patient's creatinine on admission 2.45, slightly worse 2.61, then improved yest 2.26 and 2.2 today. RENAL DOSING OF ANTIBIOTIC: continue IV Levaquin (received 3 IV doses equivalent to 6 days of therapy at 750mg IV every other day), discharged onto 500mg daily oral Levaquin for 4 days to complete a full 10 day course at home. creatinine baseline appears to be between 1.8 in 2.0, but 06/18/2016 creatinine was
[2020-04-21 11:34] LABS: Glucose Point of Care 313 (65-105)
--- NOTE | 2020-04-21 12:41 | PC.NURSE ---
SBA back to bed, blanket placed under bottom for comfort
[2020-04-21] MEDS: ENOXAPARIN 40 MG/0.4 ML SYRINGE SUB-Q (13:50)
--- NOTE | 2020-04-21 15:38 | PC.NURSE ---
Awaiting son for discharge to home, states will probably be around 9pm tonight when he is done with his route
[2020-04-21 16:53] LABS: Glucose Point of Care 308 (65-105)
--- NOTE | 2020-04-21 18:31 | PC.NURSE ---
Waiting for son to arrive for ride home for discharge
--- NOTE | 2020-04-21 20:21 | PC.NURSE ---
Patient discharged home at 2015. She was picked up by her son. She was sent home with personal belongings, inhalers, nose spray and discharge paper work.
== END 2020-04-21 20:15 | disposition home health service (06) | DRG 194 ==
LOC: CHSED 12:37 → CHS2ND 12:50
PROVIDERS: Nurse Practitioner; Admitting Provider Family Medicine; Emergency Provider Family Medicine; PCP Family Medicine; Visit Provider Family Medicine
DX: J18.9 Pneumonia, unspecified organism (principal); N39.0 Urinary tract infection, site not specified; R78.81 Bacteremia; N18.4 Chronic kidney disease, stage 4 (severe); B96.20 Unspecified Escherichia coli [E. coli] as the cause of diseases classified elsewhere; Z20.828 Contact with and (suspected) exposure to other viral communicable diseases; I12.9 Hypertensive chronic kidney disease with stage 1 through stage 4 chronic kidney disease, or unspecified chronic kidney disease; E11.22 Type 2 diabetes mellitus with diabetic chronic kidney disease; E11.65 Type 2 diabetes mellitus with hyperglycemia; N93.9 Abnormal uterine and vaginal bleeding, unspecified; K80.20 Calculus of gallbladder without cholecystitis without obstruction; E78.5 Hyperlipidemia, unspecified; M19.90 Unspecified osteoarthritis, unspecified site; R53.1 Weakness; Z79.4 Long term (current) use of insulin; Z85.3 Personal history of malignant neoplasm of breast; Z87.442 Personal history of urinary calculi; R06.02 Shortness of breath
CPT/HCPCS: 36415; 36600; 71045; 71046; 71250; 78580; 80053; 81001; 82550; 82728; 82805; 83605; 83735; 83880; 84484; 85025; 85027; 85380; 85610; 85652; 85730; 86140; 87040; 87077; 87081; 87086; 87088; 87186; 87635; 87804; 87880; 93005; 94618; 96361; 96365; 96372; 96375; 97110; 97161; 97165; 97530; 97535; 99284; 99285; A9270; A9540; C9803; J1650; J1815; J1956; J2405; J2930; J7120; U0003

== ENCOUNTER 2020-07-14 11:02 | Outpatient (CLI) | payer MEDICARE, SELFPAY ==
--- NOTE | ~2020-07-14 | US_ITS ---
EXAMINATION: US pelvic complete w TV DATE: 07/14/2020 12:19 INDICATION: Postmenopausal bleeding. TECHNIQUE: Multiple transabdominal and endovaginal sonographic images of the pelvis were obtained. COMPARISON: None. FINDINGS: The uterus measures 6.2 x 3.5 x 4.9 cm. The endometrial complex measures 11 mm in thickness. A coupl e anechoic nabothian cysts at the cervix the larger measuring 1 cm in maximal diameter. The left and right ovaries are not visualized. There is no free fluid in the pelvis. IMPRESSION: 1. Thickened endometrial complex which could be due to endometrial hyperplasia or carcinoma. Recommen d hysteroscopy for further evaluation. Reviewed, dictated and finalized at location A. IMPRESSION: 1. Thickened endometrial complex which could be due to endometrial hyperplasia or carcinoma. Recommend hysteroscopy for further evaluation.
== END 2020-07-14 11:03 | disposition home or self-care (01) ==
LOC: ANHIMG 11:07
PROVIDERS: PCP Family Medicine; Visit Provider Student in an Organized Health Care Education/Training Program
DX: N95.0 Postmenopausal bleeding (principal)
CPT/HCPCS: 76830; 76856

== ENCOUNTER 2020-08-19 11:34 | Outpatient (CLI) | payer MEDICARE, SELFPAY ==
[2020-08-19 12:08] LABS: Total Protein Urine Random 153 mg/dL
[2020-08-19 12:15] LABS: Hemoglobin A1C 8.1 % (<5.7)
[2020-08-19 12:16] LABS: Anion Gap 8 mmol/L (8-16); Blood Urea Nitrogen 38 mg/dL (7-17); Calcium 9.5 mg/dL (8.4-10.2); Carbon Dioxide 30 mmol/L (22-30); Chloride 102 mmol/L (98-107); Estimated Glomerular Filt Rate 23; Glucose 254 mg/dL (65-105); Phosphorus 3.7 mg/dL (2.5-4.5); Potassium 5.2 mmol/L (3.4-5.0); Sodium 140 mmol/L (137-145)
== END 2020-08-19 11:35 | disposition home or self-care (01) ==
PROVIDERS: PCP Family Medicine; Visit Provider Internal Medicine Nephrology
DX: N18.4 Chronic kidney disease, stage 4 (severe) (principal); E11.29 Type 2 diabetes mellitus with other diabetic kidney complication; I12.9 Hypertensive chronic kidney disease with stage 1 through stage 4 chronic kidney disease, or unspecified chronic kidney disease; R80.8 Other proteinuria
CPT/HCPCS: 36415; 80069; 82570; 83036; 84156

== ENCOUNTER 2020-10-16 10:05 | Inpatient (IN) | payer MEDICARE, SELFPAY ==
[2020-10-16] VITALS (22 sets, daily range): BP systolic 122–166; BP diastolic 59–88; PULSE 85–95; RESP 14–35; TEMP 36.6–38; O2SAT 91–96; BMI 40.5
--- NOTE | ~2020-10-16 | XR_ITS ---
EXAMINATION: XR chest 1V portable INDICATION: COVID 19, shortness of breath TECHNIQUE: Portable AP chest at 0556 hours COMPARISON: 10/21/2020 FINDINGS: Patchy airspace opacities persist in all lung zones with slight interval worsening. There i s no pleural effusion or pneumothorax. The cardiomediastinal silhouette is normal. IMPRESSION: 1. Diffuse lung disease with slight interval worsening, consistent with pneumonia and/or pulmonary ed raven and/or acute respiratory distress syndrome (ARDS). Reviewed, dictated and finalized at location A. TY GLASS INSTALLER IMPRESSION: 1. Diffuse lung disease with slight interval worsening, consistent with pneumon ia and/or pulmonary edema and/or acute respiratory distress syndrome (ARDS).
--- NOTE | ~2020-10-16 | XR_ITS ---
EXAMINATION: XR chest 1V portable DATE: 10/19/2020 15:54 INDICATION: COVID-19 pneumonia. TECHNIQUE: A single frontal view of the chest was obtained. COMPARISON: Chest single view 10/16/2020, chest CT 04/17/2020 FINDINGS: There are patchy airspace opacities in the mid and lower lung zones. No pleural effusion or pneumothorax. Cardiomegaly is noted. IMPRESSION: 1. Worsened patchy airspace opacities in the mid and lower lung zones, consistent with pneumonia. 2. Cardiomegaly. Reviewed, dictated and finalized at location A. ING PINNER IMPRESSION: 1. Worsened patchy airspace opacities in the mid and lower lung zones, consiste nt with pneumonia. 2. Cardiomegaly.
--- NOTE | ~2020-10-16 | US_ITS ---
EXAMINATION: US renal BI EXAM DATE: 10/18/2020 14:45 INDICATION: Elevated creatinine. COVID positive. TECHNIQUE: Multiple grayscale and Doppler images of the kidneys were obtained (by a technologist who performed the scan) and subsequently reviewed. Comparison is made to prior examination from 08/14/2016 . FINDINGS: Right kidney: There is normal contour and increased echogenicity. It measures 10.3 x 4.1 x 4.6 centi meters. There is an anechoic cyst measuring up to 4 cm. There is no hydronephrosis. Left kidney: There is normal contour and increased echogenicity. It measures 12.1 x 4.3 x 6.3 centim eters. There are no focal renal lesions identified. There is no hydronephrosis. Bladder unremarkable. IMPRESSION: Echogenic kidneys consistent with medical renal disease. Reviewed, dictated and finalized at location A. NG TECHNIQUES DEMONSTRATOR
--- NOTE | ~2020-10-16 | XR_ITS ---
EXAMINATION: XR chest 1V portable DATE: 10/21/2020 09:39 INDICATION: COVID-19 pneumonia. TECHNIQUE: A single frontal view of the chest was obtained. COMPARISON: Chest single view 10/19/2020 FINDINGS: There are patchy airspace and opacities in all lung zones bilaterally, worst in left mid an d lower lung zones. No pleural effusion or pneumothorax. The heart size is normal. Surgical clips ove rlie left breast. IMPRESSION: 1. Stable diffuse lung disease, consistent with pneumonia. Reviewed, dictated and finalized at location A. DRIVER
--- NOTE | ~2020-10-16 | XR_ITS ---
EXAMINATION: XR chest 1V portable DATE: 10/16/2020 10:56 INDICATION: Tachypnea. COPD, hypertension and coronary artery disease. TECHNIQUE: frontal view of the chest was obtained. COMPARISON: Chest radiograph dated 04/20/2020 FINDINGS: Patient is rotated towards the right. Predominantly streaky opacities in the bilateral mid and lower lung zones and favor atelectasis over pneumonia. No pleural effusion or pneumothorax. Mild cardiomega ly. IMPRESSION: 1. Mild streaky opacities in the bilateral mid and lower lung zones and favor atelectasis over pneumo carlos eduardo. 2. Mild cardiomegaly. Reviewed, dictated and finalized at location A. PATIAL EXTRACTOR ANALYSIS IMPRESSION: 1. Mild streaky opacities in the bilateral mid and lower lung zones and favor a telectasis over pneumonia. 2. Mild cardiomegaly.
--- NOTE | 2020-10-16 10:19 | ED.WEAKNESS ---
HPI - Weakness General Chief complaint: Weakness Stated complaint: weakness, possible uti Time Seen by Provider: 10/16/20 10:10 History of Present Illness HPI Narrative: 70 yo female brought in by EMS from home for weakness. She reports that she has felt increasingly weak for the past few weeks. More recently she has had difficulty getting herself up once she sits down. She also reports poor PO intake. she lives with her son who was recently diagnosed with COVID-19. No fever, cough, SOB, confusion, nausea, vomiting. Related Data Home Medications Medication Instructions Recorded Confirmed pantoprazole 40 mg tablet,delayed 40 mg PO QAM 01/07/20 10/16/20 release insulin regular hum U-500 conc See Rx Instructions SUB-Q DAILY ml 07/14/20 10/16/20 atorvastatin 80 mg tablet 80 mg PO DAILY 08/24/20 10/16/20 icosapent ethyl [Vascepa] 2 g PO BID 10/18/20 10/18/20 Allergies Allergy/AdvReac Type Severity Reaction Status Date / Time hydrocodone Allergy Severe rash Verified 10/16/20 17:44 adhesive tape Allergy Unknown rash Verified 10/16/20 17:44 cefdinir Allergy Unknown rash Verified 10/16/20 17:44 peach Allergy Unknown throat Verified 10/16/20 17:44 closes adhesive AdvReac Intermediate TAPE= RASH Verified 10/16/20 17:44 DYE USED FOR CLOTHING Allergy Unknown SWELLING, Uncoded 09/06/20 14:34 INFECTION FROM DYE Review of Systems Review of Systems: All systems reviewed & are unremarkable except as noted in HPI and below Constitutional: Constitutional: Denies fever(s) and Reports weakness Eyes: Eyes: Reports no additional eye complaints ENT: Denies dizziness Cardiovascular: Cardiovascular: Denies chest pain Respiratory: Respiratory: Denies cough and Denies dyspnea Gastrointestinal: Gastrointestinal: Denies abdominal pain, Denies nausea and Denies vomiting Genitourinary: Genitourinary: Denies dysuria Neurologic: Denies confusion and Denies focal weakness PMFSH Past Medical History Medical History Acid reflux Arthritis Breast cancer left CAD (coronary artery disease) Cholelithiasis Chronic renal failure, stage 4 (severe) COPD (chronic obstructive pulmonary disease) The patient told me that she did have a PFT in [place] however if she saw the business performance specialist here who stated he did not see any signs and symptoms of COPD and that the patient refused to have a PFT or obstructive sleep studies performed. Diabetes Heart disease History of breast cancer Lumpectomy and chemotherapy Hx antineoplastic chemotherapy Hypertension Kidney disease Kidney stone Morbid (severe) obesity due to excess calories Past heart attack Personal history of radiation exposure Type 2 diabetes mellitus with diabetic chronic kidney disease Surgical History Surgical History H/O bilateral cataract extraction H/O heart artery stent H/O lumpectomy On the left History of extraction of renal calculus [place] teeth extracted Family History Family History Mother Family history of diabetes mellitus in first degree relative Cancer CHF (congestive heart failure), NYHA class I Diabetes mellitus Family history of cardiovascular disease Family history of congestive heart failure Family history of hearing loss Family history of heart disease in male family member before age 55 Heart disease Family history of thyroid disease Thyroid disease Hypertension Father Cancer CHF (congestive heart failure), NYHA class I Family history of arthritis Family history of cardiovascular disease Family history of congestive heart failure Family history of hearing loss Family history of heart disease in male family member before age 55 Heart disease Family history of obesity Sibling CHF (congestive heart failure), NYHA class I Other Family history of malignant ne
--- NOTE | 2020-10-16 10:27 | ECG_ITS ---
Measurements Intervals [place] Rate: 92 P: 26 TX: 156 QRS: -23 QRSD: 93 T: 60 QT: 360 QTc: 447 Interpretive Statements SINUS RHYTHM CONSIDER INFERIOR INFARCT, AGE INDETERMINATE BASELINE ARTIFACT- AVL ABNORMAL ECG Electronically Signed On 10-16-2020 12:24:16 ZIPPER SETTER by Titi Oviedo D.O.
--- NOTE | 2020-10-16 10:54 | PC.NURSE ---
UNABLE TO OBTAIN COMPLETE HOME MEDICATION LIST FROM PATIENT, SON OR [facility].
[2020-10-16] MEDS: SODIUM CHLORIDE 0.9% IV 500 ML 999 ML IV CONT (11:05)
[2020-10-16 11:11] LABS: Basophils Percent Auto 0.2 % (0.2-1.2); Hematocrit 43.2 % (37.0-47.0); Hemoglobin 13.9 g/dL (12.0-15.0); Immature Granulocyte Absolute 0.02 K/mm3 (0.00-0.031); Immature Granulocyte Percent A 0.4 % (0-0.5); Lymphocytes Absolute Auto 0.65 K/mm3 (0.9-3.2); Mean Corpuscular HGB Conc 32.2 g/dl (32-36); Mean Corpuscular Hemoglobin 28.1 pg (26-34); Mean Corpuscular Volume 87.4 fl (80-100); Mean Platelet Volume 12.2 fl (7.4-10.4); Monocytes Absolute Auto 0.4 K/mm3 (0.1-0.6); Monocytes Percent Auto 8.6 % (2.6-8.5); Neutrophils Absolute Auto 3.9 K/mm3 (1.3-6.7); Neutrophils Percent Auto 77.8 % (45.5-73.1); Platelet Count Result 139 k/mm3 (150-375); Red Blood Count 4.94 M/mm3 (4.2-5.4); Red Cell Distribution Width 15.8 % (11.5-14.5)
[2020-10-16 11:21] LABS: Alanine Aminotransferase 39 U/L (4-35); Albumin Level 3.8 g/dL (3.5-5.1); Alkaline Phosphatase 64 U/L (38-126); Anion Gap 10 mmol/L (8-16); Aspartate Amino Transferase 57 U/L (14-36); Bilirubin,Total 0.8 mg/dL (0.2-1.3); Blood Urea Nitrogen 59 mg/dL (7-17); Calcium 8.9 mg/dL (8.4-10.2); Carbon Dioxide 26 mmol/L (22-30); Chloride 101 mmol/L (98-107); Estimated CRCL calculation 19 ml/min; Estimated Glomerular Filt Rate 14; Glucose 224 mg/dL (65-105); Potassium 4.3 mmol/L (3.4-5.0); Sodium 137 mmol/L (137-145)
[2020-10-16 11:26] LABS: Prothrombin Time 13.8 Seconds (11.1-14.7)
[2020-10-16 11:27] LABS: Partial Thromboplastin Time 31.8 SECONDS (22.3-36.8)
[2020-10-16] MEDS: ONDANSETRON INJ 4 MG/2 ML VIAL (11:46)
[2020-10-16 11:55] LABS: Add Urine Microscopic? YES; Appearance Urine Cloudy (Clear); Bacteria Urine 4+ /hpf; Bilirubin Urine Negative (Negative); Blood Urine 2+ (Negative); Color Urine Yellow (Yellow); Glucose Urine UA 2+ mg/dL (Negative); Ketones Urine Negative (Negative); Leukocyte Esterase Ur 2+ LEU/UL (Negative); Mucus Urine Rare /lpf; Nitrate Urine Negative (Negative); Protein Urine 3+ mg/dL (Negative); Specific Grav Ur 1.017 (1.001-1.035); Squamous Epithelial Cell Urine Rare /hpf (Few); Urobilinogen Urine Negative mg/dL (<2.0); WBC Clumps Urine Present /HPF; WBC Urine >75 /hpf
--- NOTE | 2020-10-16 12:14 | PC.NURSE ---
found old medication list in pt's leonides pack. meds updated as much as possible.
--- NOTE | 2020-10-16 14:08 | PM.IMHP ---
H&P: HPI History of Present Illness Date/Time: 10/16/20 14:08 Chief Complaint: Weakness/UTI Narrative: Munira Falk is a 70 year old female the patient came to the emergency room because she was feeling weak. She stated that she had difficulty getting up but when she got up she could get moving. It was noted that she has a history of COPD in the patient stated that she did have a pulmonary function test but it was negative for COPD. She had her last office visit with her primary care doctor on 09/06/2020. The patient had some vaginal bleeding this summer and she had endometrial biopsy on 08/09/2020 which was found to be benign. The patient has been diabetic since the age of 55 and she was started on insulin in 2014 and she has had some problems with her sugars being low in the past. The patient tells me that her A1c was 7 point something just recently. She does have chronic renal failure and stated that she sees her molder fitting Dr. Hdez and stated that her numbers were getting better. The patient has had a UTI with E coli her last admission which was in April of last year. She sees Urology for kidney stones. She says not nephrology for her chronic renal failure. She sees endocrinology for her diabetes. She sees a senior oracle database administrator for vaginal bleeding which has stopped. She also sees a supervisor chassis assembly and waterproofer helper. She denies any chest pain at this time. Was April 21, 2020 she was found have a UTI with E coli and was given Levaquin. On her CT scan at that time she had cardiomegaly and cholelithiasis. Her V/Q scan at that time was low probability for PE. She was swabbed for COVID at that time and was negative. The patient tells me that her son has been off of work because somebody at his workplace tested positive for COVID however he does not work that closely with that patient. He is not sick. However the patient fears that she may possibly have COVID. She was swabbed for COVID. She denies any fever but has chills weakness no cough. She just feels very weak. She is found to be positive for UTI today was started on Levaquin to be renally dosed by Pharmacy creatinine was 3.2 today back in August was 2.1. Her BUN is 59 today had been 38. Her GFR is only 14 and had been 23. Her blood sugars now 224 today. Last A1c as of August was 8.1. Patient's AST is 57 and ALT 39 streaking opacities in the bilateral mid and lower lung zones and favor atelectasis over pneumonia. Mild cardiomegaly. On IV fluids Zofran and Levaquin in the emergency room. I did see the supervisor chassis assembly note Dr. trujillo who stated that he did not see any signs and symptoms of COPD and that the patient refused PFTs. He also offered her sleep study and the patient refused. He believes that she may have obstructive sleep apnea. The patient is being admitted to observation on the date of service of 10/16/2020 Review of Systems Review of Systems: All systems reviewed & are unremarkable except as noted in HPI and below Constitutional: Constitutional: Reports as per HPI and Reports no additional constitutional complaints Eyes: Eyes: Reports as per HPI and Reports no additional eye complaints ENT: Reports system reviewed and no additional complaints, except as documented and Reports Normal hearing present Cardiovascular: Cardiovascular: Reports no additional cardiovascular complaints Respiratory: Respiratory: Reports no additional respiratory complaints and Reports no additional respiratory complaints Gastrointestinal: Gastrointestinal: Reports as per HPI and Reports no additional gastrointestinal complaints Musculoskeletal: Musculoskeletal: Reports no additional musculoskeletal complaints Integumentary/Breasts: Skin/Breast: Reports system reviewed and no additional complaints, except as docu and Reports as per HPI Neurologic: Reports system reviewed and no additional complaints, except as documented, Reports as per HPI and Reports Normal hearing present Psychiatric:
--- NOTE | 2020-10-16 17:26 | ADMGEN ---
This patient, Munira Falk, was admitted to [facility] Surg Room 314-01. Patient/family oriented to hospital policies and general routines including ID bracelet, bed and alarms, visiting hours, pain management, procedures, bathroom and other care routines, personal items, smoking policy, room service/diet, and visiting hours. Information on how to activate the Rapid Response Team has been discussed. Patient/Family are encouraged to report perceived risks to care and to ask questions if they do not understand what they are told or what they should do.
[2020-10-16 17:40] LABS: Glucose Point of Care 165 (65-105)
[2020-10-16 20:47] LABS: SARS-CoV-2 RNA PCR Positive
[2020-10-16] MEDS: METOPROLOL TARTRATE 25 MG TABLET PO (21:42)
[2020-10-16] MEDS: FAMOTIDINE 20 MG TABLET BY MOUTH (21:42)
[2020-10-16] MEDS: TOLNAFTATE 1% POWDER 45 GM BTL 1 APPLIC TOPICAL (21:43)
[2020-10-16] MEDS: ACETAMINOPHEN 325 MG TABLET 650 MG PO (21:43)
[2020-10-16 22:41] LABS: Glucose Point of Care 153 (65-105)
[2020-10-17] VITALS (9 sets, daily range): BP systolic 127–144; BP diastolic 51–66; PULSE 76–110; RESP 20–22; TEMP 36.8–38.1; O2SAT 90–93
[2020-10-17 06:58] LABS: Basophils Percent Auto 0.2 % (0.2-1.2); Hematocrit 39.9 % (37.0-47.0); Hemoglobin 12.9 g/dL (12.0-15.0); Immature Granulocyte Absolute 0.02 K/mm3 (0.00-0.031); Immature Granulocyte Percent A 0.4 % (0-0.5); Lymphocytes Absolute Auto 0.62 K/mm3 (0.9-3.2); Lymphocytes Percent Auto 13.5 % (18.3-44.2); Mean Corpuscular HGB Conc 32.3 g/dl (32-36); Mean Corpuscular Hemoglobin 28.2 pg (26-34); Mean Corpuscular Volume 87.1 fl (80-100); Mean Platelet Volume 12.4 fl (7.4-10.4); Monocytes Absolute Auto 0.3 K/mm3 (0.1-0.6); Monocytes Percent Auto 7.2 % (2.6-8.5); Neutrophils Absolute Auto 3.6 K/mm3 (1.3-6.7); Neutrophils Percent Auto 78.7 % (45.5-73.1); Platelet Count Result 127 k/mm3 (150-375); Red Blood Count 4.58 M/mm3 (4.2-5.4); Red Cell Distribution Width 15.8 % (11.5-14.5); White Blood Count 4.6 K/mm3 (4.5-10.0)
[2020-10-17 07:24] LABS: Alanine Aminotransferase 34 U/L (4-35); Albumin Level 3.4 g/dL (3.5-5.1); Alkaline Phosphatase 57 U/L (38-126); Anion Gap 8 mmol/L (8-16); Aspartate Amino Transferase 54 U/L (14-36); Bilirubin,Total 0.7 mg/dL (0.2-1.3); Blood Urea Nitrogen 54 mg/dL (7-17); Calcium 8.7 mg/dL (8.4-10.2); Carbon Dioxide 22 mmol/L (22-30); Chloride 106 mmol/L (98-107); Estimated CRCL calculation 23 ml/min; Estimated Glomerular Filt Rate 18; Glucose 167 mg/dL (65-105); Lactate Dehydrogenase 708 U/L (313-618); Potassium 4.2 mmol/L (3.4-5.0); Sodium 136 mmol/L (137-145)
[2020-10-17 09:19] LABS: Glucose Point of Care 177 (65-105)
[2020-10-17] MEDS: PANTOPRAZOLE 40 MG TABLET PO (10:03)
[2020-10-17] MEDS: METOPROLOL TARTRATE 25 MG TABLET PO ×2 (10:03→21:42)
[2020-10-17] MEDS: ATORVASTATIN 40 MG TABLET 80 MG PO (10:03)
[2020-10-17] MEDS: NIFEdipine 30 MG TAB.ER.24 PO (10:03)
[2020-10-17] MEDS: FAMOTIDINE 20 MG TABLET BY MOUTH ×2 (10:04→21:42)
[2020-10-17] MEDS: TOLNAFTATE 1% POWDER 45 GM BTL 1 APPLIC TOPICAL ×2 (10:04→21:50)
[2020-10-17] MEDS: POTASSIUM CITRATE 5 MEQ TAB CR 40 MEQ PO (10:04)
--- NOTE | 2020-10-17 10:11 | PM.CNNEP ---
Assessment and Plan Assessment and plan (1) Chronic renal failure, stage 4 (severe): Code(s): N18.4 - Chronic kidney disease, stage 4 (severe) Status: Chronic Assessment and Plan: Jesika has chronic kidney disease. Her baseline creatinine is around 2.5. This is most likely due to diabetes and hypertension. She has been evaluated by Dr. Hdez in the office. Her creatinine on admission was 3.2. She has not been eating or drinking very well and so I suspect that there is an element of dehydration. The patient also has a bladder infection and so could have some affect on the kidney from that. To evaluate this I am going to get a renal ultrasound, urine electrolytes and eosinophils. She will get antibiotics for her bladder infection as we wait for cultures to come back. (2) Suspected COVID-19 virus infection: Code(s): Z20.822 - Contact with and (suspected) exposure to COVID-19 Status: Acute Assessment and Plan: The patient was swabbed for COVID-19. She is under investigation at this time. She is on isolation. (3) Urinary tract infection: Qualifiers: Hematuria presence: with hematuria Urinary tract infection type: site unspecified Qualified Code(s): N39.0 - Urinary tract infection, site not specified; R31.9 - Hematuria, unspecified Code(s): N39.0 - Urinary tract infection, site not specified Status: Acute Assessment and Plan: She has pyuria. Cultures are pending. She is getting Levaquin for this. (4) Essential hypertension: Code(s): I10 - Essential (primary) hypertension Status: Acute Assessment and Plan: Her blood pressure is under pretty good control. This morning it has been running between 130 and 142. Will watch this going forward. (5) Type 2 diabetes mellitus with diabetic chronic kidney disease: Code(s): E11.22 - Type 2 diabetes mellitus with diabetic chronic kidney disease Status: Acute Assessment and Plan: she is on insulin sliding scale. (6) COPD (chronic obstructive pulmonary disease): Code(s): J44.9 - Chronic obstructive pulmonary disease, unspecified Status: Acute Assessment and Plan: She is on Supportive care (7) CAD (coronary artery disease): Code(s): I25.10 - Atherosclerotic heart disease of [place] coronary artery without angina pectoris Status: Acute Assessment and Plan: No chest pain History of Present Illness Reason for Consult Consult date: 10/17/20 Chief Complaint Chief complaint: UTI, JOSE E, Generalized weakness History of Present Illness Narrative: Gutierrez raza is a very pleasant 70-year-old lady who sees Dr. Hdez in the office. The patient came into the hospital because she has been weak for a couple of weeks. This has gradually been getting worse. She lives with her son who has been helping her out however because of the progressive weakness he asked her to come over to the emergency room. She was evaluated in the emergency room. She was swabbed for COVID. Labs showed a possible UTI. She was given antibiotics and admitted. She has chronic kidney disease. Her creatinine generally ranges in the mid 2s. On admission a creatinine was 3.2. She denies any bloody urine, foamy urine, kidney stones. She has not been taking any Advil Aleve ibuprofen or Motrin. She has a history of kidney stones. He has hypertension but this is been well controlled. The patient has diabetes. The patient has COPD. Patient has coronary artery disease and has not been having any chest pain. She does not smoke. She rarely drinks. Review of Systems Constitutional: Constitutional: Reports no additional constitutional complaints Eyes: Eyes: Reports no additional eye complaints ENT: Reports system reviewed and no additional complaints, except as documented Cardiovascular: Cardiovascular: Reports no additional cardiovascular complain
[2020-10-17 11:45] LABS: Creatine Kinase 421 U/L (30-135)
[2020-10-17] MEDS: levoFLOXacin 250 MG/D5W 50 ML 250 MG/50 ML BAG 33.33 MG IVPB (12:56)
[2020-10-17 13:01] LABS: Glucose Point of Care 167 (65-105)
--- NOTE | 2020-10-17 13:15 | PM.IMPN ---
Progress Note: A&P Assessment and Plan (1) Urinary tract infection: Qualifiers: Hematuria presence: with hematuria Urinary tract infection type: site unspecified Qualified Code(s): N39.0 - Urinary tract infection, site not specified; R31.9 - Hematuria, unspecified Code(s): N39.0 - Urinary tract infection, site not specified Status: Acute Assessment and Plan: UA grossly abnormal, urine culture growing gram negative bacilli. Continue renally-dosed IV levaquin for now (day 2) while awaiting urine and blood cultures. (2) COVID-19: Code(s): U07.1 - COVID-19 Status: Acute Assessment and Plan: Patient exposed to COVID + family member, presents to hospital for weakness. COVID positive 10/16/20. Since she is hypoxic this afternoon, will start dexamethasone (day 1). Hold off on remdesivir at this time given renal function. Continue supplemental O2 and wean as tolerated to keep O2 saturations > 90%. Continue supportive care with Tylenol for fevers, albuterol MDI, incentive spirometer. Patient febrile. She requests ibuprofen for fever, says tylenol does not work for her. Nursing helped explain NSAIDs contraindicated due to renal failure. Ibuprofen entered erroneously in DEC, patient did not receive any. She continues to decline tylenol at this time despite education. (3) Acute respiratory failure: Qualifiers: Respiratory failure complication: hypoxia Qualified Code(s): J96.01 - Acute respiratory failure with hypoxia Code(s): J96.00 - Acute respiratory failure, unspecified whether with hypoxia or hypercapnia Status: Acute Assessment and Plan: Up to 3L/min NC in no acute distress. Wean as tolerated, see above. (4) Chronic renal failure, stage 4 (severe): Code(s): N18.4 - Chronic kidney disease, stage 4 (severe) Status: Chronic Assessment and Plan: Cr down to 2.6 today from 3.2 yesterday. Baseline Cr appears near 2.5. She follows with Dr Hdez. Appreciate Dr Chand's input. Monitor renal function daily and avoid nephrotoxic agents. Monitor urine output. (5) Hypertensive cardiomegaly with heart failure: Code(s): I11.0 - Hypertensive heart disease with heart failure Status: Acute Assessment and Plan: BPs reviewed and reasonably stable maintained on her home metoprolol and nifedipine. Monitor BP and adjust treatment as needed. I&O, daily weights. (6) Type 2 diabetes mellitus with diabetic chronic kidney disease: Qualifiers: Diabetes mellitus penitentiary insulin use: with tank terminal gauger use Chronic kidney disease stage: stage 4 (severe) Qualified Code(s): E11.22 - Type 2 diabetes mellitus with diabetic chronic kidney disease; N18.4 - Chronic kidney disease, stage 4 (severe); Z79.4 - penitentiary (current) use of insulin Code(s): E11.22 - Type 2 diabetes mellitus with diabetic chronic kidney disease Status: Acute Assessment and Plan: Hgb A1c 08/19/20 is 8.1%. She has really high doses of insulin listed on her DEC. We will hold these for now since she is not eating much, cover with SSI, and add back insulin as needed based on blood glucose trends. Today blood sugars remain in 160s. (7) CAD (coronary artery disease): Qualifiers: Coronary Disease-Associated Artery/Lesion type: unspecified vessel or lesion type [place] vs. transplanted heart: [place] heart Associated angina: without angina Qualified Code(s): I25.10 - Atherosclerotic heart disease of [place] coronary artery without angina pectoris Code(s): I25.10 - Atherosclerotic heart disease of [place] coronary artery without angina pectoris Status: Acute Assessment an
[2020-10-17 17:57] LABS: Glucose Point of Care 161 (65-105)
[2020-10-17 21:56] LABS: Glucose Point of Care 162 (65-105)
[2020-10-17] MEDS: DEXAMETHASONE SOD PHOS INJ 4 MG/ML VIAL 6 MG IV PUSH (23:12)
[2020-10-18] VITALS (11 sets, daily range): BP systolic 117–139; BP diastolic 54–74; PULSE 72–87; RESP 18–24; TEMP 36.1–36.8; O2SAT 91–96
[2020-10-18] MEDS: HEPARIN SODIUM 5,000 UNITS/ML VIAL 5000 UNITS SUB-Q ×3 (06:16→21:08)
[2020-10-18 06:56] LABS: Albumin Level 3.6 g/dL (3.5-5.1); Anion Gap 9 mmol/L (8-16); Blood Urea Nitrogen 52 mg/dL (7-17); Carbon Dioxide 24 mmol/L (22-30); Chloride 107 mmol/L (98-107); Estimated CRCL calculation 24 ml/min; Estimated Glomerular Filt Rate 19; Glucose 286 mg/dL (65-105); Potassium 5.2 mmol/L (3.4-5.0); Sodium 140 mmol/L (137-145)
[2020-10-18 06:58] LABS: CRP 7.5 mg/dL (<1.0); Magnesium 2.2 mg/dL (1.6-2.3)
[2020-10-18 09:02] LABS: Glucose Point of Care 300 (65-105)
[2020-10-18] MEDS: METOPROLOL TARTRATE 25 MG TABLET PO ×2 (09:11→21:04)
[2020-10-18] MEDS: FAMOTIDINE 20 MG TABLET BY MOUTH ×2 (09:11→21:03)
[2020-10-18] MEDS: ATORVASTATIN 40 MG TABLET 80 MG PO (09:11)
[2020-10-18] MEDS: DEXAMETHASONE SOD PHOS INJ 4 MG/ML VIAL 6 MG IV PUSH (09:12)
[2020-10-18] MEDS: NIFEdipine 30 MG TAB.ER.24 PO (09:12)
[2020-10-18] MEDS: PANTOPRAZOLE 40 MG TABLET PO (09:12)
[2020-10-18] MEDS: INSULIN ASPART (*BKC) 100 UNITS/ML SUB-Q ×2 (09:13→18:32)
[2020-10-18] MEDS: AMOXICILLIN/CLAVULANATE K 500-125 MG TAB 1 TABLET PO ×2 (09:13→18:32)
[2020-10-18 09:45] LABS: Creatinine Urine 104.7 mg/dL; Urea Random Urine 955 MG/DL
[2020-10-18 09:56] LABS: Total Protein Urine Random 319 mg/dL; Ur Ttl Prot Creatinine Ratio 3.05 mg/mg (0-0.20)
[2020-10-18] MEDS: TOLNAFTATE 1% POWDER 45 GM BTL 1 APPLIC TOPICAL ×2 (11:09→21:04)
[2020-10-18 11:44] LABS: Sodium Urine Random 37 meq/L
--- NOTE | 2020-10-18 14:43 | PM.IMPN ---
Progress Note: A&P Assessment and Plan (1) Urinary tract infection: Code(s): N39.0 - Urinary tract infection, site not specified Status: Acute Assessment and Plan: UA growing Klebsiella pneumonia -stop Levaquin and started Augmentin due to patient's QTC and risk for further cardiac issues with COVID-19 -blood culture showed no growth to date (2) COVID-19: Code(s): U07.1 - COVID-19 Status: Acute Assessment and Plan: COVID positive 10/16/20. -patient currently on 3 L and does not feel short of breath -continue dexamethasone -no indication for Remdesivir due to renal dysfunction -Continue supplemental O2 and wean as tolerated to keep O2 saturations > 90%. -Continue supportive care with Tylenol for fevers, albuterol MDI, incentive spirometer. (3) Acute respiratory failure: Qualifiers: Respiratory failure complication: hypoxia Qualified Code(s): J96.01 - Acute respiratory failure with hypoxia Code(s): J96.00 - Acute respiratory failure, unspecified whether with hypoxia or hypercapnia Status: Acute Assessment and Plan: Secondary to above -continue supplemental oxygen (4) Chronic renal failure, stage 4 (severe): Code(s): N18.4 - Chronic kidney disease, stage 4 (severe) Status: Chronic Assessment and Plan: Cr down to 2.5 today -was 3.2 on admission -She follows with Dr Hdez. -baseline appears to be around 2.3 -likely worsened due to COVID-19 and UTI (5) Hypertensive cardiomegaly with heart failure: Code(s): I11.0 - Hypertensive heart disease with heart failure Status: Acute Assessment and Plan: Last blood pressure 135/71 -continue metoprolol and nifedipine. (6) Type 2 diabetes mellitus with diabetic chronic kidney disease: Qualifiers: Diabetes mellitus residential insulin use: with residential use Chronic kidney disease stage: stage 4 (severe) Qualified Code(s): E11.22 - Type 2 diabetes mellitus with diabetic chronic kidney disease; N18.4 - Chronic kidney disease, stage 4 (severe); Z79.4 - FDC (current) use of insulin Code(s): E11.22 - Type 2 diabetes mellitus with diabetic chronic kidney disease Status: Acute Assessment and Plan: Last glucose 300 -patient usually takes U500 strength insulin at home and sees JETHRO Lehman -I have spoken to her about the patient's regimen and she recommend continue with NovoLog at this time and patient can go back on her home therapy at discharge -patient is very wary of this but seems to agree to the current treatment plan -Hgb A1c 08/19/20 is 8.1%. She has really high doses of insulin listed on her MAR and I confirmed this with her PA. (7) CAD (coronary artery disease): Qualifiers: Coronary Disease-Associated Artery/Lesion type: unspecified vessel or lesion type [place] vs. transplanted heart: [place] heart Associated angina: without angina Qualified Code(s): I25.10 - Atherosclerotic heart disease of [place] coronary artery without angina pectoris Code(s): I25.10 - Atherosclerotic heart disease of [place] coronary artery without angina pectoris Status: Acute Assessment and Plan: History of 2 coronary stents. Stable, denies chest pain. -no ACS Additional Plan Recent visit with Dr Fowler, pulmonology, suggests concern for possible sleep apnea however she has declined sleep study at that time. She will benefit from a sleep study once she recovers from COVID. Time Spent With Patient Time with patient: 25 - 35 minutes Subjective Date/time seen: 10/18/20 14:43 Interval history: Ms. Falk is a 70yo F admitted for UTI, COVID, acute on chronic renal failure. Patient was seen today and a little disgruntled but otherwise doing okay. She denies chest pain, shortness of breath, dyspnea on exertion, nausea, vomiting, fevers, chills, or abdominal pain. She is mainly upset that we are no
--- NOTE | 2020-10-18 16:49 | PM.PNNEP ---
Progress Note: A&P Assessment and Plan (1) Chronic renal failure, stage 4 (severe): Code(s): N18.4 - Chronic kidney disease, stage 4 (severe) Status: Chronic Assessment and Plan: Jesika has chronic kidney disease. Her baseline creatinine is around 2.3. This is most likely due to diabetes and hypertension. She has been evaluated by Dr. Hdez in the office. urine lytes on the prerenal side. renal ultrasound is okay Her creatinine on admission was 3.2. this has fallen to 2.5, close to baseline. this is just with her eating and getting atbs for UTI. continue same tx. no fluids for now since creatinine is better and she has covid. (2) Suspected COVID-19 virus infection: Code(s): Z20.822 - Contact with and (suspected) exposure to COVID-19 Status: Inactive Assessment and Plan: covid positive (3) Urinary tract infection: Code(s): N39.0 - Urinary tract infection, site not specified Status: Acute Assessment and Plan: She has pyuria. cultures show kleb, sens to ampicillin. on augmentin (4) Essential hypertension: Code(s): I10 - Essential (primary) hypertension Status: Acute Assessment and Plan: Her blood pressure is under pretty good control. (5) Type 2 diabetes mellitus with diabetic chronic kidney disease: Qualifiers: Diabetes mellitus intermodal dispatcher insulin use: with intermodal dispatcher use Chronic kidney disease stage: stage 4 (severe) Qualified Code(s): E11.22 - Type 2 diabetes mellitus with diabetic chronic kidney disease; N18.4 - Chronic kidney disease, stage 4 (severe); Z79.4 - local company intermodal truck driver (current) use of insulin Code(s): E11.22 - Type 2 diabetes mellitus with diabetic chronic kidney disease Status: Acute Assessment and Plan: she is on insulin sliding scale. (6) COPD (chronic obstructive pulmonary disease): Qualifiers: COPD type: unspecified COPD Qualified Code(s): J44.9 - Chronic obstructive pulmonary disease, unspecified Code(s): J44.9 - Chronic obstructive pulmonary disease, unspecified Status: Acute Assessment and Plan: She is on Supportive care (7) CAD (coronary artery disease): Qualifiers: Coronary Disease-Associated Artery/Lesion type: unspecified vessel or lesion type [place] vs. transplanted heart: [place] heart Associated angina: without angina Qualified Code(s): I25.10 - Atherosclerotic heart disease of [place] coronary artery without angina pectoris Code(s): I25.10 - Atherosclerotic heart disease of [place] coronary artery without angina pectoris Status: Acute Assessment and Plan: No chest pain Subjective Date/time seen: 10/18/20 16:49 Interval history: alert, feels okay still in isolation for covid. eating okay. Review of Systems Cardiovascular: Cardiovascular: Reports no additional cardiovascular complaints Respiratory: Respiratory: Reports no additional respiratory complaints Gastrointestinal: Gastrointestinal: Reports no additional gastrointestinal complaints Genitourinary: Genitourinary: Reports no additional female genitourinary complaints Exam Narrative: Exam Narrative: WDWN in NAD skin no rash or sq nodules head ncat lungs clear cor reg no rub abd BS+ nontender and soft ext no edema. Objective Data Vital Signs Vital Signs: Vital Signs - 24 hr 10/17/20 20:00 10/17/20 21:42 10/18/20 00:00 Temperature 37.6 C 36.8 C Pulse Rate 110 H 88 87 Respiratory Rate 20 18 Blood Pressure 132/64 139/74 Pulse Oximetry 90 96 10/18/20 04:00 10/18/20 08:00 10/18/20 09:10 Temperature 36.1 C L 36.6 C Pulse Rate 83 84 Respiratory Rate 24 H 20 Blood Pressure 128/66 125/72 Pulse Oximetry 93 92 96 10/18/20 09:11 10/18/20 12:00 10/18/20 16:00 Temperature 36.4 C L 36.4 C L Pulse Rate 85 72 81 Respiratory Rate 20 20 Blood Pressure 135/71 117/54 L Pulse Oximetry 93 93 10/18/20 16:4
[2020-10-18 17:36] LABS: Glucose Point of Care 303 (65-105)
[2020-10-18 18:34] LABS: Glucose Point of Care 343 (65-105)
[2020-10-18] MEDS: INSULIN GLARGINE (*BKC) 100 UNITS/ML 10 UNITS SUB-Q (21:04)
[2020-10-18 21:24] LABS: Glucose Point of Care 333 (65-105)
[2020-10-19] VITALS (13 sets, daily range): BP systolic 122–149; BP diastolic 62–74; PULSE 53–89; RESP 20–40; TEMP 36.2–37.3; O2SAT 88–95
[2020-10-19] MEDS: HEPARIN SODIUM 5,000 UNITS/ML VIAL 5000 UNITS SUB-Q ×3 (06:23→21:48)
[2020-10-19 06:29] LABS: Hematocrit 41.2 % (37.0-47.0); Hemoglobin 13.4 g/dL (12.0-15.0); Mean Corpuscular HGB Conc 32.5 g/dl (32-36); Mean Corpuscular Volume 86.2 fl (80-100); Mean Platelet Volume 11.5 fl (7.4-10.4); Platelet Count Result 163 k/mm3 (150-375); Red Blood Count 4.78 M/mm3 (4.2-5.4); Red Cell Distribution Width 15.6 % (11.5-14.5); White Blood Count 6.8 K/mm3 (4.5-10.0)
[2020-10-19 06:48] LABS: Alanine Aminotransferase 28 U/L (4-35); Albumin Level 3.4 g/dL (3.5-5.1); Alkaline Phosphatase 61 U/L (38-126); Anion Gap 10 mmol/L (8-16); Aspartate Amino Transferase 42 U/L (14-36); Bilirubin,Total 0.6 mg/dL (0.2-1.3); Blood Urea Nitrogen 62 mg/dL (7-17); Calcium 9.1 mg/dL (8.4-10.2); Carbon Dioxide 25 mmol/L (22-30); Chloride 104 mmol/L (98-107); Estimated CRCL calculation 22 ml/min; Estimated Glomerular Filt Rate 17; Glucose 351 mg/dL (65-105); Phosphorus 5.1 mg/dL (2.5-4.5); Potassium 4.7 mmol/L (3.4-5.0); Sodium 139 mmol/L (137-145)
[2020-10-19] MEDS: PANTOPRAZOLE 40 MG TABLET PO (08:34)
[2020-10-19] MEDS: ATORVASTATIN 40 MG TABLET 80 MG PO (08:34)
[2020-10-19] MEDS: NIFEdipine 30 MG TAB.ER.24 PO (08:34)
[2020-10-19] MEDS: METOPROLOL TARTRATE 25 MG TABLET PO ×2 (08:35→20:23)
[2020-10-19] MEDS: AMOXICILLIN/CLAVULANATE K 500-125 MG TAB 1 TABLET PO ×2 (08:35→17:21)
[2020-10-19] MEDS: DEXAMETHASONE SOD PHOS INJ 4 MG/ML VIAL 6 MG IV PUSH (08:36)
[2020-10-19] MEDS: FAMOTIDINE 20 MG TABLET BY MOUTH ×2 (08:36→20:23)
[2020-10-19] MEDS: INSULIN ASPART (*BKC) 100 UNITS/ML SUB-Q ×3 (08:39→18:15)
[2020-10-19 10:25] LABS: Glucose Point of Care 303 (65-105)
[2020-10-19] MEDS: TOLNAFTATE 1% POWDER 45 GM BTL 1 APPLIC TOPICAL ×2 (10:59→20:23)
[2020-10-19 13:15] LABS: Glucose Point of Care 384 (65-105)
--- NOTE | 2020-10-19 14:42 | PM.IMPN ---
Progress Note: A&P Assessment and Plan (1) Urinary tract infection: Code(s): N39.0 - Urinary tract infection, site not specified Status: Acute Assessment and Plan: UA growing Klebsiella pneumonia -stopped Levaquin and started Augmentin due to patient's QTC and risk for further cardiac issues with COVID-19 -blood culture showed no growth to date (2) COVID-19: Code(s): U07.1 - COVID-19 Status: Acute Assessment and Plan: COVID positive 10/16/20. -chest x-ray worsening, ABG looks okay -patient currently on 4 L and does not feel short of breath -continue dexamethasone -contraindication for Remdesivir due to renal dysfunction -Continue supplemental O2 and wean as tolerated to keep O2 saturations > 90%. -Continue supportive care with Tylenol for fevers, albuterol MDI, incentive spirometer. -patient's demeanor has changed today, unclear why. She is alert and oriented x4 with a worsening chest x-ray. Neuro exam normal. Blood cultures are negative. Will monitor closely (3) Acute respiratory failure: Qualifiers: Respiratory failure complication: hypoxia Qualified Code(s): J96.01 - Acute respiratory failure with hypoxia Code(s): J96.00 - Acute respiratory failure, unspecified whether with hypoxia or hypercapnia Status: Acute Assessment and Plan: Secondary to above -continue supplemental oxygen (4) Chronic renal failure, stage 4 (severe): Code(s): N18.4 - Chronic kidney disease, stage 4 (severe) Status: Chronic Assessment and Plan: Cr down to 2.8 today -was 3.2 on admission -She follows with Dr Hdez. -baseline appears to be around 2.3 -likely worsened due to COVID-19 and UTI (5) Hypertensive cardiomegaly with heart failure: Code(s): I11.0 - Hypertensive heart disease with heart failure Status: Acute Assessment and Plan: Last blood pressure 141/68 -continue metoprolol and nifedipine. (6) Type 2 diabetes mellitus with diabetic chronic kidney disease: Qualifiers: Chronic kidney disease stage: stage 4 (severe) Diabetes mellitus predatory animal exterminator insulin use: with predatory animal exterminator use Qualified Code(s): E11.22 - Type 2 diabetes mellitus with diabetic chronic kidney disease; N18.4 - Chronic kidney disease, stage 4 (severe); Z79.4 - skilled nursing (current) use of insulin Code(s): E11.22 - Type 2 diabetes mellitus with diabetic chronic kidney disease Status: Acute Assessment and Plan: Last glucose 384 -Lantus and sliding scale insulin both increased 10/19/19 -patient usually takes U500 strength insulin at home and sees JETHRO Lehman -I have spoken to her about the patient's regimen and she recommend continue with NovoLog at this time and patient can go back on her home therapy at discharge -Hgb A1c 08/19/20 is 8.1%. She has really high doses of insulin listed on her DEC and I confirmed this with her PA. (7) CAD (coronary artery disease): Qualifiers: Associated angina: without angina Coronary Disease-Associated Artery/Lesion type: unspecified vessel or lesion type [place] vs. transplanted heart: [place] heart Qualified Code(s): I25.10 - Atherosclerotic heart disease of [place] coronary artery without angina pectoris Code(s): I25.10 - Atherosclerotic heart disease of [place] coronary artery without angina pectoris Status: Acute Assessment and Plan: History of 2 coronary stents. Stable, denies chest pain. -no ACS Additional Plan Recent visit with Dr Fowler, pulmonology, suggests concern for possible sleep apnea however she has declined sleep study at that time. She will benefit from a sleep study once she recovers from COVID. Subjective Date/time seen: 10/19/20 14:42 Interval history: Ms. Falk is a 70yo F admitted for UTI, COVID, acute on chronic renal failure. Patient was seen today and seemed more calm than yesterday. She states she feels
[2020-10-19 15:52] LABS: Alveolar/Arterial O2 Gradient 123.8 mmHg; Base Excess ABG -2.1 mEq/l (+/-2.0); Carboxyhemoglobin 0.5 % THb (0-2.0); HCO3 ABG 22.9 mEq/l (22.0-26.0); Methemoglobin ABG 0.3 %THb (0-1.5); Oxygen Content ABG 16.5 %vol (16.0-22.0); Oxygen Saturation ABG 89.4 % (95.0-100.0); Oxyhemoglobin 88.2 % THb (90.0-100.0); PO2 ABG 57.6 mmHg (80.0-100.0); Total Hemoglobin 13.3 g/dL (12.0-18.0); pH ABG 7.375 (7.350-7.450)
[2020-10-19 15:53] LABS: Fractional Inspired Oxygen 36 %
[2020-10-19 15:54] LABS: Device NASAL CANNULA; Modified Allen's Test Pass; Site Drawn LEFT RADIAL
[2020-10-19 17:35] LABS: Glucose Point of Care 354 (65-105)
[2020-10-19] MEDS: INSULIN GLARGINE (*BKC) 100 UNITS/ML 15 UNITS SUB-Q (20:23)
[2020-10-19 21:29] LABS: Glucose Point of Care 316 (65-105)
[2020-10-20] VITALS (13 sets, daily range): BP systolic 134–149; BP diastolic 64–80; PULSE 76–95; RESP 18–28; TEMP 36.3–37.3; O2SAT 88–92
[2020-10-20] MEDS: HEPARIN SODIUM 5,000 UNITS/ML VIAL 5000 UNITS SUB-Q ×3 (05:31→21:19)
[2020-10-20] MEDS: ACETAMINOPHEN 325 MG TABLET 650 MG PO (06:19)
[2020-10-20 07:06] LABS: Anion Gap 6 mmol/L (8-16); Blood Urea Nitrogen 55 mg/dL (7-17); CRP 8.2 mg/dL (<1.0); Calcium 9.2 mg/dL (8.4-10.2); Carbon Dioxide 28 mmol/L (22-30); Chloride 106 mmol/L (98-107); Estimated CRCL calculation 24 ml/min; Estimated Glomerular Filt Rate 19; Glucose 250 mg/dL (65-105); Potassium 4.1 mmol/L (3.4-5.0); Sodium 140 mmol/L (137-145)
[2020-10-20 07:16] LABS: Lactate Dehydrogenase 1013 U/L (313-618)
[2020-10-20] MEDS: METOPROLOL TARTRATE 25 MG TABLET PO ×2 (08:04→20:08)
[2020-10-20] MEDS: ATORVASTATIN 40 MG TABLET 80 MG PO (08:04)
[2020-10-20] MEDS: PANTOPRAZOLE 40 MG TABLET PO (08:05)
[2020-10-20] MEDS: FAMOTIDINE 20 MG TABLET BY MOUTH ×2 (08:05→20:09)
[2020-10-20] MEDS: AMOXICILLIN/CLAVULANATE K 500-125 MG TAB 1 TABLET PO ×2 (08:05→17:15)
[2020-10-20] MEDS: DEXAMETHASONE SOD PHOS INJ 4 MG/ML VIAL 6 MG IV PUSH (08:05)
[2020-10-20] MEDS: NIFEdipine 30 MG TAB.ER.24 PO (08:05)
[2020-10-20] MEDS: TOLNAFTATE 1% POWDER 45 GM BTL 1 APPLIC TOPICAL ×2 (08:05→20:09)
[2020-10-20] MEDS: INSULIN ASPART (*BKC) 100 UNITS/ML SUB-Q ×3 (08:05→17:15)
[2020-10-20 08:51] LABS: Glucose Point of Care 248 (65-105)
--- NOTE | 2020-10-20 11:41 | PM.IMPN ---
Progress Note: A&P Assessment and Plan (1) Urinary tract infection: Code(s): N39.0 - Urinary tract infection, site not specified Status: Acute Assessment and Plan: UA growing Klebsiella pneumonia -stopped Levaquin and started Augmentin 10/18/20 due to patient's QTC and risk for further cardiac issues with COVID-19 -blood culture showed no growth to date (2) COVID-19: Code(s): U07.1 - COVID-19 Status: Acute Assessment and Plan: COVID positive 10/16/20. -chest x-ray worsening 10/19/20, ABG looks okay -patient currently on 4 L and does not feel short of breath -continue dexamethasone -contraindication for Remdesivir due to renal dysfunction -Continue supplemental O2 and wean as tolerated to keep O2 saturations > 90%. -Continue supportive care with Tylenol for fevers, albuterol MDI, incentive spirometer. -patient's demeanor has changed 10/19/20 and seems the same today. She is alert and oriented x4 with a worsening chest x-ray. Neuro exam normal. Blood cultures are negative. she seems unmotivated but stable. monitor (3) Acute respiratory failure: Qualifiers: Respiratory failure complication: hypoxia Qualified Code(s): J96.01 - Acute respiratory failure with hypoxia Code(s): J96.00 - Acute respiratory failure, unspecified whether with hypoxia or hypercapnia Status: Acute Assessment and Plan: Secondary to above -continue supplemental oxygen (4) Chronic renal failure, stage 4 (severe): Code(s): N18.4 - Chronic kidney disease, stage 4 (severe) Status: Chronic Assessment and Plan: Cr down to 2.5 today -was 3.2 on admission -She follows with Dr Hdez. -baseline appears to be around 2.3 -likely worsened due to COVID-19 and UTI (5) Hypertensive cardiomegaly with heart failure: Code(s): I11.0 - Hypertensive heart disease with heart failure Status: Acute Assessment and Plan: Last blood pressure 142/80 -continue metoprolol and nifedipine. (6) Type 2 diabetes mellitus with diabetic chronic kidney disease: Qualifiers: Diabetes mellitus brush or broom cutter insulin use: with brush or broom cutter use Chronic kidney disease stage: stage 4 (severe) Qualified Code(s): E11.22 - Type 2 diabetes mellitus with diabetic chronic kidney disease; N18.4 - Chronic kidney disease, stage 4 (severe); Z79.4 - half-way (current) use of insulin Code(s): E11.22 - Type 2 diabetes mellitus with diabetic chronic kidney disease Status: Acute Assessment and Plan: Last glucose 248 -Lantus and sliding scale insulin both increased 10/19/19 -patient usually takes U500 strength insulin at home and sees JETHRO Lehman -I have spoken to her about the patient's regimen and she recommend continue with NovoLog at this time and patient can go back on her home therapy at discharge -Hgb A1c 08/19/20 is 8.1%. She has really high doses of insulin listed on her DEC and I confirmed this with her PA. (7) CAD (coronary artery disease): Qualifiers: Coronary Disease-Associated Artery/Lesion type: unspecified vessel or lesion type [place] vs. transplanted heart: [place] heart Associated angina: without angina Qualified Code(s): I25.10 - Atherosclerotic heart disease of [place] coronary artery without angina pectoris Code(s): I25.10 - Atherosclerotic heart disease of [place] coronary artery without angina pectoris Status: Acute Assessment and Plan: History of 2 coronary stents. Stable, denies chest pain. -no ACS Additional Plan Recent visit with Dr Fowler, pulmonology, suggests concern for possible sleep apnea however she has declined sleep study at that time. She will benefit from a sleep study once she recovers from COVID. Subjective Date/time seen: 10/20/20 11:41 Interval history: Ms. Falk is a 70yo F admitted for UTI, COVID, acute on chronic renal failure. Patient was seen today and is doing
--- NOTE | 2020-10-20 12:18 | PCOTNOTE ---
Attempted to see patient this am, however patient refused. Pt already completed ADLs with nursing and declined activity out of bed.
[2020-10-20 12:53] LABS: Glucose Point of Care 289 (65-105)
--- NOTE | 2020-10-20 13:12 | PCPTNOTE ---
The PT treatment was unable to be completed today due to patient refusal. Will continue per Plan of Care frequency and duration.
[2020-10-20 17:10] LABS: Glucose Point of Care 361 (65-105)
[2020-10-20] MEDS: INSULIN GLARGINE (*BKC) 100 UNITS/ML 15 UNITS SUB-Q (20:49)
[2020-10-20 20:51] LABS: Glucose Point of Care 309 (65-105)
[2020-10-21] VITALS (10 sets, daily range): BP systolic 125–150; BP diastolic 67–79; PULSE 79–103; RESP 15–24; TEMP 36.1–36.7; O2SAT 88–92
[2020-10-21] MEDS: HEPARIN SODIUM 5,000 UNITS/ML VIAL 5000 UNITS SUB-Q ×3 (05:51→22:17)
[2020-10-21 06:30] LABS: Lactate Dehydrogenase 1100 U/L (313-618)
[2020-10-21 06:40] LABS: Anion Gap 8 mmol/L (8-16); Blood Urea Nitrogen 49 mg/dL (7-17); Calcium 9.1 mg/dL (8.4-10.2); Carbon Dioxide 27 mmol/L (22-30); Chloride 106 mmol/L (98-107); Estimated CRCL calculation 27 ml/min; Estimated Glomerular Filt Rate 22; Glucose 255 mg/dL (65-105); Potassium 4.4 mmol/L (3.4-5.0); Sodium 141 mmol/L (137-145)
[2020-10-21 07:49] LABS: CRP 16.1 mg/dL (<1.0)
[2020-10-21 08:04] LABS: Glucose Point of Care 237 (65-105)
[2020-10-21] MEDS: INSULIN ASPART (*BKC) 100 UNITS/ML SUB-Q ×3 (08:06→17:27)
[2020-10-21] MEDS: FAMOTIDINE 20 MG TABLET BY MOUTH ×2 (08:07→20:30)
[2020-10-21] MEDS: METOPROLOL TARTRATE 25 MG TABLET PO ×2 (08:07→20:30)
[2020-10-21] MEDS: AMOXICILLIN/CLAVULANATE K 500-125 MG TAB 1 TABLET PO ×2 (08:08→17:27)
[2020-10-21] MEDS: TOLNAFTATE 1% POWDER 45 GM BTL 1 APPLIC TOPICAL ×2 (08:08→20:48)
[2020-10-21] MEDS: PANTOPRAZOLE 40 MG TABLET PO (08:08)
[2020-10-21] MEDS: NIFEdipine 30 MG TAB.ER.24 PO (08:08)
[2020-10-21] MEDS: DEXAMETHASONE SOD PHOS INJ 4 MG/ML VIAL 6 MG IV PUSH (08:08)
[2020-10-21] MEDS: ATORVASTATIN 40 MG TABLET 80 MG PO (08:08)
--- NOTE | 2020-10-21 11:19 | PM.PNNEP ---
Progress Note: A&P Assessment and Plan (1) Chronic renal failure, stage 4 (severe): Code(s): N18.4 - Chronic kidney disease, stage 4 (severe) Status: Chronic Assessment and Plan: Jesika has chronic kidney disease. Her baseline creatinine is around 2.3. This is most likely due to diabetes and hypertension. She has been evaluated by Dr. Hdez in the office. urine lytes on the prerenal side. renal ultrasound is okay Her creatinine on admission was 3.2. Now her creatinine is at her baseline. Will view from a distance (2) Suspected COVID-19 virus infection: Code(s): Z20.822 - Contact with and (suspected) exposure to COVID-19 Status: Inactive Assessment and Plan: covid positive (3) Urinary tract infection: Code(s): N39.0 - Urinary tract infection, site not specified Status: Acute Assessment and Plan: She has pyuria. cultures show kleb, sens to ampicillin. on augmentin (4) Essential hypertension: Code(s): I10 - Essential (primary) hypertension Status: Acute Assessment and Plan: Her blood pressure is under pretty good control. (5) Type 2 diabetes mellitus with diabetic chronic kidney disease: Qualifiers: Diabetes mellitus [facility] insulin use: with terminal clerk use Chronic kidney disease stage: stage 4 (severe) Qualified Code(s): E11.22 - Type 2 diabetes mellitus with diabetic chronic kidney disease; N18.4 - Chronic kidney disease, stage 4 (severe); Z79.4 - ferry terminal agent (current) use of insulin Code(s): E11.22 - Type 2 diabetes mellitus with diabetic chronic kidney disease Status: Acute Assessment and Plan: she is on insulin sliding scale. (6) COPD (chronic obstructive pulmonary disease): Qualifiers: COPD type: unspecified COPD Qualified Code(s): J44.9 - Chronic obstructive pulmonary disease, unspecified Code(s): J44.9 - Chronic obstructive pulmonary disease, unspecified Status: Acute Assessment and Plan: She is on Supportive care (7) CAD (coronary artery disease): Qualifiers: Coronary Disease-Associated Artery/Lesion type: unspecified vessel or lesion type [place] vs. transplanted heart: [place] heart Associated angina: without angina Qualified Code(s): I25.10 - Atherosclerotic heart disease of [place] coronary artery without angina pectoris Code(s): I25.10 - Atherosclerotic heart disease of [place] coronary artery without angina pectoris Status: Acute Assessment and Plan: No chest pain Subjective Date/time seen: 10/21/20 11:19 Interval history: alert, feels okay still in isolation for covid. The patient is comfortable lying flat in bed. She is not on oxygen. Review of Systems Cardiovascular: Cardiovascular: Reports no additional cardiovascular complaints Respiratory: Respiratory: Reports no additional respiratory complaints Gastrointestinal: Gastrointestinal: Reports no additional gastrointestinal complaints Genitourinary: Genitourinary: Reports no additional female genitourinary complaints Exam Narrative: Exam Narrative: WDWN in NAD skin no rash or sq nodules head ncat lungs clear bilaterally cor reg no rub or gallop abd BS+ nontender and soft ext no edema. Objective Data Vital Signs Vital Signs: Vital Signs - 24 hr 10/20/20 12:00 10/20/20 15:56 10/20/20 16:00 Temperature 36.3 C L 36.3 C L Pulse Rate 91 95 88 Respiratory Rate 28 H 24 H Blood Pressure 134/70 138/73 Pulse Oximetry 92 90 10/20/20 20:00 10/20/20 20:08 10/21/20 00:00 Temperature 36.7 C 36.7 C Pulse Rate 88 88 80 Respiratory Rate 20 20 Blood Pressure 142/64 H 141/72 H Pulse Oximetry 91 90 10/21/20 04:00 10/21/20 08:00 10/21/20 08:07 Temperature 36.4 C L 36.3 C L Pulse Rate 84 92 82 Respiratory Rate 20 18 Blood Pressure 137/72 139/67 Pulse Oximetry 90 90 Intake/Output Intake/Output: Intake & Output 01
[2020-10-21 12:23] LABS: Glucose Point of Care 340 (65-105)
--- NOTE | 2020-10-21 15:04 | PM.IMPN ---
Progress Note: A&P Assessment and Plan (1) Urinary tract infection: Code(s): N39.0 - Urinary tract infection, site not specified Status: Acute Assessment and Plan: UA growing Klebsiella pneumonia -stopped Levaquin and started Augmentin 10/18/20 due to patient's QTC and risk for further cardiac issues with COVID-19 -blood culture showed no growth to date (2) COVID-19: Code(s): U07.1 - COVID-19 Status: Acute Assessment and Plan: COVID positive 10/16/20. -chest x-ray worsening 10/19/20, ABG looks okay -inflammatory markers much worse today, repeated CXR and it was stable and pt feels okay at this time. will monitor closely -patient currently on 4 L and does not feel short of breath -continue dexamethasone -contraindication for Remdesivir due to renal dysfunction -Continue supplemental O2 and wean as tolerated to keep O2 saturations > 90%. -Continue supportive care with Tylenol for fevers, albuterol MDI, incentive spirometer. -patient's demeanor has changed 10/19/20 and seems the same today. She is alert and oriented x4. Neuro exam normal. Blood cultures are negative. she seems unmotivated but stable. monitor (3) Acute respiratory failure: Qualifiers: Respiratory failure complication: hypoxia Qualified Code(s): J96.01 - Acute respiratory failure with hypoxia Code(s): J96.00 - Acute respiratory failure, unspecified whether with hypoxia or hypercapnia Status: Acute Assessment and Plan: Secondary to above -continue supplemental oxygen (4) Chronic renal failure, stage 4 (severe): Code(s): N18.4 - Chronic kidney disease, stage 4 (severe) Status: Chronic Assessment and Plan: Cr down to 2.2 today -was 3.2 on admission -She follows with Dr Hdez. -baseline appears to be around 2.3 -likely worsened due to COVID-19 and UTI (5) Hypertensive cardiomegaly with heart failure: Code(s): I11.0 - Hypertensive heart disease with heart failure Status: Acute Assessment and Plan: Last blood pressure 148/79 -continue metoprolol and nifedipine. (6) Type 2 diabetes mellitus with diabetic chronic kidney disease: Qualifiers: Diabetes mellitus exterminator helper termite insulin use: with halfway use Chronic kidney disease stage: stage 4 (severe) Qualified Code(s): E11.22 - Type 2 diabetes mellitus with diabetic chronic kidney disease; N18.4 - Chronic kidney disease, stage 4 (severe); Z79.4 - long term care social worker (current) use of insulin Code(s): E11.22 - Type 2 diabetes mellitus with diabetic chronic kidney disease Status: Acute Assessment and Plan: Last glucose 340 -will increase lantus -patient usually takes U500 strength insulin at home and sees PA Rebecca Lehman -I have spoken to her about the patient's regimen and she recommend continue with NovoLog at this time and patient can go back on her home therapy at discharge -Hgb A1c 08/19/20 is 8.1%. She has really high doses of insulin listed on her DEC and I confirmed this with her PA. (7) CAD (coronary artery disease): Qualifiers: Coronary Disease-Associated Artery/Lesion type: unspecified vessel or lesion type [place] vs. transplanted heart: [place] heart Associated angina: without angina Qualified Code(s): I25.10 - Atherosclerotic heart disease of [place] coronary artery without angina pectoris Code(s): I25.10 - Atherosclerotic heart disease of [place] coronary artery without angina pectoris Status: Acute Assessment and Plan: History of 2 coronary stents. Stable, denies chest pain. -no ACS Additional Plan Recent visit with Dr Fowler, pulmonology, suggests concern for possible sleep apnea however she has declined sleep study at that time. She will benefit from a sleep study once she recovers from COVID. Subjective Date/time seen: 10/21/20 15:04 Interval history: Ms. Falk is a 70yo F admitted for UTI, COVID, acute o
[2020-10-21 17:19] LABS: Glucose Point of Care 349 (65-105)
[2020-10-21] MEDS: INSULIN GLARGINE (*BKC) 100 UNITS/ML 20 UNITS SUB-Q (20:31)
[2020-10-21 20:54] LABS: Glucose Point of Care 313 (65-105)
[2020-10-21 23:31] LABS: Glucose Point of Care 285 (65-105)
[2020-10-22] VITALS (14 sets, daily range): BP systolic 121–156; BP diastolic 57–90; PULSE 77–102; RESP 16–24; TEMP 35.7–37.1; O2SAT 90–96
[2020-10-22] MEDS: HEPARIN SODIUM 5,000 UNITS/ML VIAL 5000 UNITS SUB-Q ×3 (05:03→23:16)
[2020-10-22 06:33] LABS: Hematocrit 46.1 % (37.0-47.0); Mean Corpuscular HGB Conc 32.5 g/dl (32-36); Mean Corpuscular Hemoglobin 27.7 pg (26-34); Mean Corpuscular Volume 85.2 fl (80-100); Mean Platelet Volume 11.5 fl (7.4-10.4); Platelet Count Result 222 k/mm3 (150-375); Red Blood Count 5.41 M/mm3 (4.2-5.4); Red Cell Distribution Width 15.6 % (11.5-14.5); White Blood Count 7.7 K/mm3 (4.5-10.0)
[2020-10-22 06:56] LABS: Alanine Aminotransferase 26 U/L (4-35); Albumin Level 3.5 g/dL (3.5-5.1); Alkaline Phosphatase 61 U/L (38-126); Anion Gap 6 mmol/L (8-16); Aspartate Amino Transferase 42 U/L (14-36); Bilirubin,Total 1.1 mg/dL (0.2-1.3); Blood Urea Nitrogen 55 mg/dL (7-17); CRP 7.4 mg/dL (<1.0); Calcium 9.1 mg/dL (8.4-10.2); Carbon Dioxide 28 mmol/L (22-30); Chloride 107 mmol/L (98-107); Estimated CRCL calculation 31 ml/min; Estimated Glomerular Filt Rate 26; Glucose 276 mg/dL (65-105); Lactate Dehydrogenase 1241 U/L (313-618); Magnesium 2.2 mg/dL (1.6-2.3); Sodium 141 mmol/L (137-145)
[2020-10-22 08:14] LABS: Glucose Point of Care 275 (65-105)
[2020-10-22] MEDS: AMOXICILLIN/CLAVULANATE K 500-125 MG TAB 1 TABLET PO ×2 (08:50→17:38)
[2020-10-22] MEDS: INSULIN ASPART (*BKC) 100 UNITS/ML SUB-Q ×3 (08:51→17:38)
[2020-10-22] MEDS: ATORVASTATIN 40 MG TABLET 80 MG PO (08:51)
[2020-10-22] MEDS: METOPROLOL TARTRATE 25 MG TABLET PO ×2 (08:52→20:26)
[2020-10-22] MEDS: PANTOPRAZOLE 40 MG TABLET PO (08:52)
[2020-10-22] MEDS: NIFEdipine 30 MG TAB.ER.24 PO (08:52)
[2020-10-22] MEDS: DEXAMETHASONE SOD PHOS INJ 4 MG/ML VIAL 6 MG IV PUSH (08:52)
[2020-10-22] MEDS: FAMOTIDINE 20 MG TABLET BY MOUTH ×2 (09:01→20:28)
[2020-10-22] MEDS: TOLNAFTATE 1% POWDER 45 GM BTL 1 APPLIC TOPICAL ×2 (09:01→20:51)
--- NOTE | 2020-10-22 12:40 | PM.PNNEP ---
Progress Note: A&P Assessment and Plan (1) Chronic renal failure, stage 4 (severe): Code(s): N18.4 - Chronic kidney disease, stage 4 (severe) Status: Chronic Assessment and Plan: Jesika has chronic kidney disease. Her baseline creatinine is around 2.3. This is most likely due to diabetes and hypertension. She has been evaluated by Dr. Hdez in the office. urine lytes on the prerenal side. renal ultrasound is okay Her creatinine on admission was 3.2. Now her creatinine is at her baseline. Will follow from a distance. (2) Suspected COVID-19 virus infection: Code(s): Z20.822 - Contact with and (suspected) exposure to COVID-19 Status: Inactive Assessment and Plan: covid positive (3) Urinary tract infection: Code(s): N39.0 - Urinary tract infection, site not specified Status: Acute Assessment and Plan: She has pyuria. cultures show kleb, sens to ampicillin. on augmentin (4) Essential hypertension: Code(s): I10 - Essential (primary) hypertension Status: Acute Assessment and Plan: Her blood pressure is under pretty good control. (5) Type 2 diabetes mellitus with diabetic chronic kidney disease: Qualifiers: Diabetes mellitus longterm insulin use: with computer terminal operator use Chronic kidney disease stage: stage 4 (severe) Qualified Code(s): E11.22 - Type 2 diabetes mellitus with diabetic chronic kidney disease; N18.4 - Chronic kidney disease, stage 4 (severe); Z79.4 - [facility] (current) use of insulin Code(s): E11.22 - Type 2 diabetes mellitus with diabetic chronic kidney disease Status: Acute Assessment and Plan: she is on insulin sliding scale. (6) COPD (chronic obstructive pulmonary disease): Qualifiers: COPD type: unspecified COPD Qualified Code(s): J44.9 - Chronic obstructive pulmonary disease, unspecified Code(s): J44.9 - Chronic obstructive pulmonary disease, unspecified Status: Acute Assessment and Plan: She is on Supportive care (7) CAD (coronary artery disease): Qualifiers: Coronary Disease-Associated Artery/Lesion type: unspecified vessel or lesion type [place] vs. transplanted heart: [place] heart Associated angina: without angina Qualified Code(s): I25.10 - Atherosclerotic heart disease of [place] coronary artery without angina pectoris Code(s): I25.10 - Atherosclerotic heart disease of [place] coronary artery without angina pectoris Status: Acute Assessment and Plan: No chest pain Subjective Date/time seen: 10/22/20 12:40 Interval history: alert, feels okay still in isolation for covid. She is sitting up in a chair. She is on 6L of oxygen, it turns out. Review of Systems Cardiovascular: Cardiovascular: Reports no additional cardiovascular complaints Respiratory: Respiratory: Reports no additional respiratory complaints Gastrointestinal: Gastrointestinal: Reports no additional gastrointestinal complaints Genitourinary: Genitourinary: Reports no additional female genitourinary complaints Exam Narrative: Exam Narrative: WDWN in NAD skin no rash or sq nodules head ncat lungs clear bilaterally cor reg no rub or gallop abd BS+ nontender and soft ext no edema. Objective Data Vital Signs Vital Signs: Vital Signs - 24 hr 10/21/20 16:00 10/21/20 17:11 10/21/20 20:00 Temperature 36.2 C L 36.3 C L Pulse Rate 94 85 92 Respiratory Rate 24 H 15 20 Blood Pressure 125/68 150/75 H Pulse Oximetry 89 L 88 L 92 10/21/20 20:30 10/21/20 21:42 10/22/20 00:00 Temperature 35.9 C L Pulse Rate 85 79 81 Respiratory Rate 20 Blood Pressure 143/77 H Pulse Oximetry 91 94 10/22/20 04:00 10/22/20 08:00 10/22/20 08:30 Temperature 35.7 C L 36.1 C L Pulse Rate 98 86 92 Respiratory Rate 24 H 16 16 Blood Pressure 138/90 146/76 H Pulse Oximetry 91 92 92 10/22/20 08:52 Temperature Pulse Rate 92 R
--- NOTE | 2020-10-22 14:17 | PM.IMPN ---
Progress Note: A&P Assessment and Plan (1) COVID-19: Code(s): U07.1 - COVID-19 Status: Acute Assessment and Plan: COVID positive 10/16/20. -chest x-ray stable 10/21/20 -inflammatory markers are worse today except CRP. -Because pt is falling asleep during exam, will order ABG -pts o2 needs increased to 6L today -continue dexamethasone -contraindication for Remdesivir due to renal dysfunction -Continue supplemental O2 and wean as tolerated to keep O2 saturations > 90%. -Continue supportive care with Tylenol for fevers, albuterol MDI, incentive spirometer. (2) Urinary tract infection: Code(s): N39.0 - Urinary tract infection, site not specified Status: Acute Assessment and Plan: UA growing Klebsiella pneumonia -stopped Levaquin and started Augmentin 10/18/20 due to patient's QTC and risk for further cardiac issues with COVID-19 -today will be the 7th day of abx and I will stop it after tonights dose -blood culture showed no growth to date (3) Acute respiratory failure: Qualifiers: Respiratory failure complication: hypoxia Qualified Code(s): J96.01 - Acute respiratory failure with hypoxia Code(s): J96.00 - Acute respiratory failure, unspecified whether with hypoxia or hypercapnia Status: Acute Assessment and Plan: Secondary to above -continue supplemental oxygen (4) Chronic renal failure, stage 4 (severe): Code(s): N18.4 - Chronic kidney disease, stage 4 (severe) Status: Chronic Assessment and Plan: Cr down to 1.9 today -was 3.2 on admission -She follows with Dr Hdez. -baseline appears to be around 2.3 -likely worsened due to COVID-19 and UTI (5) Hypertensive cardiomegaly with heart failure: Code(s): I11.0 - Hypertensive heart disease with heart failure Status: Acute Assessment and Plan: Last blood pressure 146/76 -continue metoprolol and nifedipine. (6) Type 2 diabetes mellitus with diabetic chronic kidney disease: Qualifiers: Diabetes mellitus fdc insulin use: with ocean transportation intermediary use Chronic kidney disease stage: stage 4 (severe) Qualified Code(s): E11.22 - Type 2 diabetes mellitus with diabetic chronic kidney disease; N18.4 - Chronic kidney disease, stage 4 (severe); Z79.4 - shelter (current) use of insulin Code(s): E11.22 - Type 2 diabetes mellitus with diabetic chronic kidney disease Status: Acute Assessment and Plan: Last glucose 287 -Continue lantus at 20u and high scale SSI -patient usually takes U500 strength insulin at home and sees PA Rebecca Lehman -I have spoken to her about the patient's regimen and she recommend continue with NovoLog at this time and patient can go back on her home therapy at discharge -Hgb A1c 08/19/20 is 8.1%. She has really high doses of insulin listed on her DEC and I confirmed this with her PA. (7) CAD (coronary artery disease): Qualifiers: Coronary Disease-Associated Artery/Lesion type: unspecified vessel or lesion type [place] vs. transplanted heart: [place] heart Associated angina: without angina Qualified Code(s): I25.10 - Atherosclerotic heart disease of [place] coronary artery without angina pectoris Code(s): I25.10 - Atherosclerotic heart disease of [place] coronary artery without angina pectoris Status: Acute Assessment and Plan: History of 2 coronary stents. Stable, denies chest pain. -no ACS Additional Plan Recent visit with Dr Fowler, pulmonology, suggests concern for possible sleep apnea however she has declined sleep study at that time. She will benefit from a sleep study once she recovers from COVID. Subjective Date/time seen: 10/22/20 14:17 Interval history: Ms. Falk is a 70yo F admitted for COVID. Patient was seen today and is doing okay. She is very unmotivated and not eating much. When asked, she just keeps saying she is tired. She says she isn't sleepi
[2020-10-22 14:26] LABS: Glucose Point of Care 287 (65-105)
[2020-10-22 15:43] LABS: Alveolar/Arterial O2 Gradient 188.6 mmHg; Base Excess ABG -1.5 mEq/l (+/-2.0); Carboxyhemoglobin 0.8 % THb (0-2.0); Fractional Inspired Oxygen 40 %; HCO3 ABG 22.3 mEq/l (22.0-26.0); Methemoglobin ABG 0.3 %THb (0-1.5); Oxygen Saturation ABG 90.1 % (95.0-100.0); Oxyhemoglobin 86.8 % THb (90.0-100.0); PCO2 ABG 35.1 mmHg (35.0-45.0); PO2 ABG 56.2 mmHg (80.0-100.0); Reduced Hemoglobin 12.1 %THb (0-5.0); Total Hemoglobin 14.8 g/dL (12.0-18.0); pH ABG 7.421 (7.350-7.450)
[2020-10-22 15:44] LABS: Device NASAL CANNULA; Modified Allen's Test Pass; Site Drawn RIGHT RADIAL
[2020-10-22 17:52] LABS: Glucose Point of Care 269 (65-105)
[2020-10-22] MEDS: INSULIN GLARGINE (*BKC) 100 UNITS/ML 20 UNITS SUB-Q (20:32)
[2020-10-22 21:28] LABS: Glucose Point of Care 242 (65-105)
[2020-10-22] MEDS: SODIUM CHLORIDE 0.9% IV 250 ML 30 ML IV CONT (23:15)
[2020-10-23] VITALS (10 sets, daily range): BP systolic 132–178; BP diastolic 70–103; PULSE 80–123; RESP 16–22; TEMP 36.1–37.2; O2SAT 92–97
[2020-10-23 06:40] LABS: Hematocrit 46.8 % (37.0-47.0); Hemoglobin 14.9 g/dL (12.0-15.0); Mean Corpuscular HGB Conc 31.8 g/dl (32-36); Mean Corpuscular Hemoglobin 27.5 pg (26-34); Mean Corpuscular Volume 86.5 fl (80-100); Mean Platelet Volume 11.5 fl (7.4-10.4); Platelet Count Result 238 k/mm3 (150-375); Red Blood Count 5.41 M/mm3 (4.2-5.4); Red Cell Distribution Width 15.6 % (11.5-14.5); White Blood Count 8.1 K/mm3 (4.5-10.0)
[2020-10-23] MEDS: HEPARIN SODIUM 5,000 UNITS/ML VIAL 5000 UNITS SUB-Q ×3 (06:44→21:10)
[2020-10-23 07:09] LABS: Anion Gap 7 mmol/L (8-16); Blood Urea Nitrogen 48 mg/dL (7-17); CRP 5.1 mg/dL (<1.0); Calcium 9.2 mg/dL (8.4-10.2); Carbon Dioxide 27 mmol/L (22-30); Chloride 109 mmol/L (98-107); Estimated CRCL calculation 28 ml/min; Estimated Glomerular Filt Rate 23; Glucose 244 mg/dL (65-105); Sodium 143 mmol/L (137-145)
[2020-10-23 08:33] LABS: Glucose Point of Care 223 (65-105)
[2020-10-23] MEDS: INSULIN ASPART (*BKC) 100 UNITS/ML SUB-Q ×3 (09:11→17:41)
[2020-10-23] MEDS: NIFEdipine 30 MG TAB.ER.24 PO (09:12)
[2020-10-23] MEDS: METOPROLOL TARTRATE 25 MG TABLET PO ×2 (09:12→21:06)
[2020-10-23] MEDS: PANTOPRAZOLE 40 MG TABLET PO (09:12)
[2020-10-23] MEDS: FAMOTIDINE 20 MG TABLET BY MOUTH ×2 (09:13→21:06)
[2020-10-23] MEDS: DEXAMETHASONE SOD PHOS INJ 4 MG/ML VIAL 6 MG IV PUSH (09:13)
[2020-10-23] MEDS: ATORVASTATIN 40 MG TABLET 80 MG PO (09:13)
[2020-10-23] MEDS: TOLNAFTATE 1% POWDER 45 GM BTL 1 APPLIC TOPICAL ×2 (09:14→21:10)
[2020-10-23 12:38] LABS: Glucose Point of Care 310 (65-105)
--- NOTE | 2020-10-23 14:12 | PM.IMPN ---
Progress Note: A&P Assessment and Plan (1) COVID-19: Code(s): U07.1 - COVID-19 Status: Acute Assessment and Plan: COVID positive 10/16/20. -chest x-ray stable 10/21/20 -CRP improving -ABG 10/22/20 showed hypoxia but looks like it is mixed venous. No CO2 retention -she is still on 6 L of oxygen -she is not eating and not really working with physical therapy. I explained to her if she wants to improve that she has to motivate herself. -continue dexamethasone -contraindication for Remdesivir due to renal dysfunction -Continue supplemental O2 and wean as tolerated to keep O2 saturations > 90%. -Continue supportive care with Tylenol for fevers, albuterol MDI, incentive spirometer. (2) Urinary tract infection: Code(s): N39.0 - Urinary tract infection, site not specified Status: Acute Assessment and Plan: UA growing Klebsiella pneumonia -Augmentin completed, no further symptoms -blood culture showed no growth to date (3) Acute respiratory failure: Qualifiers: Respiratory failure complication: hypoxia Qualified Code(s): J96.01 - Acute respiratory failure with hypoxia Code(s): J96.00 - Acute respiratory failure, unspecified whether with hypoxia or hypercapnia Status: Acute Assessment and Plan: Secondary to above -continue supplemental oxygen (4) Chronic renal failure, stage 4 (severe): Code(s): N18.4 - Chronic kidney disease, stage 4 (severe) Status: Chronic Assessment and Plan: Cr down to 2.1 today -was 3.2 on admission -She follows with Dr Hdez. -baseline appears to be around 2.3 -likely worsened due to COVID-19 and UTI (5) Hypertensive cardiomegaly with heart failure: Code(s): I11.0 - Hypertensive heart disease with heart failure Status: Acute Assessment and Plan: Last blood pressure 132/80 although she was more elevated this morning -continue metoprolol and nifedipine -Will add hydralazine p.r.n. (6) Type 2 diabetes mellitus with diabetic chronic kidney disease: Qualifiers: Diabetes mellitus bed bug exterminator insulin use: with fpc use Chronic kidney disease stage: stage 4 (severe) Qualified Code(s): E11.22 - Type 2 diabetes mellitus with diabetic chronic kidney disease; N18.4 - Chronic kidney disease, stage 4 (severe); Z79.4 - intermediate (current) use of insulin Code(s): E11.22 - Type 2 diabetes mellitus with diabetic chronic kidney disease Status: Acute Assessment and Plan: Last glucose 310 -will increase Lantus and continue high scale SSI -patient usually takes U500 strength insulin at home and sees PA Rebecca eLhman -I have spoken to her about the patient's regimen and she recommend continue with NovoLog at this time and patient can go back on her home therapy at discharge -Hgb A1c 08/19/20 is 8.1%. She has really high doses of insulin listed on her DEC and I confirmed this with her PA. (7) CAD (coronary artery disease): Qualifiers: Coronary Disease-Associated Artery/Lesion type: unspecified vessel or lesion type [place] vs. transplanted heart: [place] heart Associated angina: without angina Qualified Code(s): I25.10 - Atherosclerotic heart disease of [place] coronary artery without angina pectoris Code(s): I25.10 - Atherosclerotic heart disease of [place] coronary artery without angina pectoris Status: Acute Assessment and Plan: History of 2 coronary stents. Stable, denies chest pain. -no ACS Additional Plan Recent visit with Dr Fowler, pulmonology, suggests concern for possible sleep apnea however she has declined sleep study at that time. She will benefit from a sleep study once she recovers from COVID. Subjective Date/time seen: 10/23/20 14:12 Interval history: Ms. Falk is a 70yo F admitted for COVID. Patient was seen today and is doing okay. She is very unmotivated and not eating much and is not working
[2020-10-23 20:24] LABS: Glucose Point of Care 210 (65-105)
[2020-10-23] MEDS: INSULIN GLARGINE (*BKC) 100 UNITS/ML 25 UNITS SUB-Q (21:06)
[2020-10-23 22:31] LABS: Glucose Point of Care 185 (65-105)
[2020-10-24] VITALS (9 sets, daily range): BP systolic 126–152; BP diastolic 74–91; PULSE 70–101; RESP 20–24; TEMP 36–37.1; O2SAT 90–96
[2020-10-24] MEDS: HEPARIN SODIUM 5,000 UNITS/ML VIAL 5000 UNITS SUB-Q ×3 (06:22→21:53)
[2020-10-24 07:08] LABS: Alanine Aminotransferase 29 U/L (4-35); Albumin Level 3.4 g/dL (3.5-5.1); Alkaline Phosphatase 82 U/L (38-126); Anion Gap 5 mmol/L (8-16); Aspartate Amino Transferase 40 U/L (14-36); Bilirubin,Total 0.9 mg/dL (0.2-1.3); Blood Urea Nitrogen 43 mg/dL (7-17); CRP 5.9 mg/dL (<1.0); Calcium 9.1 mg/dL (8.4-10.2); Carbon Dioxide 28 mmol/L (22-30); Chloride 110 mmol/L (98-107); Estimated CRCL calculation 31 ml/min; Estimated Glomerular Filt Rate 26; Glucose 211 mg/dL (65-105); Potassium 3.9 mmol/L (3.4-5.0); Sodium 143 mmol/L (137-145)
[2020-10-24 09:19] LABS: Glucose Point of Care 210 (65-105)
[2020-10-24] MEDS: INSULIN ASPART (*BKC) 100 UNITS/ML SUB-Q ×3 (09:54→18:28)
[2020-10-24] MEDS: PANTOPRAZOLE 40 MG TABLET PO (09:57)
[2020-10-24] MEDS: ATORVASTATIN 40 MG TABLET 80 MG PO (09:57)
[2020-10-24] MEDS: FAMOTIDINE 20 MG TABLET BY MOUTH ×2 (09:57→21:53)
[2020-10-24] MEDS: NIFEdipine 30 MG TAB.ER.24 PO (09:57)
[2020-10-24] MEDS: DEXAMETHASONE SOD PHOS INJ 4 MG/ML VIAL 6 MG IV PUSH (09:57)
[2020-10-24] MEDS: METOPROLOL TARTRATE 25 MG TABLET PO ×2 (09:57→21:52)
[2020-10-24] MEDS: TOLNAFTATE 1% POWDER 45 GM BTL 1 APPLIC TOPICAL ×2 (09:58→21:55)
[2020-10-24 10:21] LABS: Lactate Dehydrogenase 878 U/L (313-618)
[2020-10-24 12:24] LABS: Glucose Point of Care 240 (65-105)
--- NOTE | 2020-10-24 16:34 | PM.IMPN ---
Progress Note: A&P Assessment and Plan (1) COVID-19: Code(s): U07.1 - COVID-19 Status: Acute Assessment and Plan: COVID positive 10/16/20. -chest x-ray stable 10/21/20 but still requiring 6 L of oxygen. Will repeat tomorrow -inflammatory studies improving -ABG 10/22/20 showed hypoxia but looks like it is mixed venous. No CO2 retention -she is still on 6 L of oxygen which is surprising -she is not eating and not really working with physical therapy. I explained to her if she wants to improve that she has to motivate herself. -continue dexamethasone (date 8) -contraindication for Remdesivir due to renal dysfunction -Continue supplemental O2 and wean as tolerated to keep O2 saturations > 90%. -Continue supportive care with Tylenol for fevers, albuterol MDI, incentive spirometer. (2) Urinary tract infection: Code(s): N39.0 - Urinary tract infection, site not specified Status: Acute Assessment and Plan: UA growing Klebsiella pneumonia -Augmentin completed, no further symptoms -blood culture showed no growth to date (3) Acute respiratory failure: Qualifiers: Respiratory failure complication: hypoxia Qualified Code(s): J96.01 - Acute respiratory failure with hypoxia Code(s): J96.00 - Acute respiratory failure, unspecified whether with hypoxia or hypercapnia Status: Acute Assessment and Plan: Secondary to above -continue supplemental oxygen (4) Chronic renal failure, stage 4 (severe): Code(s): N18.4 - Chronic kidney disease, stage 4 (severe) Status: Chronic Assessment and Plan: Cr down to 1.9 today -was 3.2 on admission -She follows with Dr Hdez. -baseline appears to be around 2.3 -likely worsened due to COVID-19 and UTI (5) Hypertensive cardiomegaly with heart failure: Code(s): I11.0 - Hypertensive heart disease with heart failure Status: Acute Assessment and Plan: Last blood pressure 149/90 -continue metoprolol and nifedipine - hydralazine p.r.n. (6) Type 2 diabetes mellitus with diabetic chronic kidney disease: Qualifiers: Diabetes mellitus instructional systems design consultant insulin use: with instructional systems design consultant use Chronic kidney disease stage: stage 4 (severe) Qualified Code(s): E11.22 - Type 2 diabetes mellitus with diabetic chronic kidney disease; N18.4 - Chronic kidney disease, stage 4 (severe); Z79.4 - wool presser (current) use of insulin Code(s): E11.22 - Type 2 diabetes mellitus with diabetic chronic kidney disease Status: Acute Assessment and Plan: Last glucose 240 -continue Lantus and SSI -patient usually takes U500 strength insulin at home and sees PA Rebecca Lehman -I have spoken to Rebecca about the patient's regimen and she recommended to continue with NovoLog at this time and patient can go back on her home therapy at discharge. Pt finally agreed. -Hgb A1c 08/19/20 is 8.1%. She has really high doses of insulin listed on her DEC and I confirmed this with her PA. (7) CAD (coronary artery disease): Qualifiers: Coronary Disease-Associated Artery/Lesion type: unspecified vessel or lesion type [place] vs. transplanted heart: [place] heart Associated angina: without angina Qualified Code(s): I25.10 - Atherosclerotic heart disease of [place] coronary artery without angina pectoris Code(s): I25.10 - Atherosclerotic heart disease of [place] coronary artery without angina pectoris Status: Acute Assessment and Plan: History of 2 coronary stents. Stable, denies chest pain. -no ACS Additional Plan Recent visit with Dr Fowler, pulmonology, suggests concern for possible sleep apnea however she has declined sleep study at that time. She will benefit from a sleep study once she recovers from COVID. Subjective Date/time seen: 10/24/20 16:34 Interval history: Ms. Falk is a 70yo F admitted for COVID. Patient was seen today and is doing okay. She is v
[2020-10-24 18:36] LABS: Glucose Point of Care 302 (65-105)
--- NOTE | 2020-10-24 18:44 | P.PNNP_ITS ---
Progress Note: A&P Assessment and Plan (1) Chronic renal failure, stage 4 (severe): Code(s): N18.4 - Chronic kidney disease, stage 4 (severe) Status: Chronic Assessment and Plan: * baseline creatinine runs ~ 1.9 - 2.4mg/dl * due to combination of HTN and diabetes along with nephrolithiasis (2) COVID-19: Code(s): U07.1 - COVID-19 Status: Acute Assessment and Plan: * tested positive (10/16/20) * CXR results noted and still requiring supplemental oxygen * on dexamethasone * remdesivir contraindicated by CKD * monitor inflammatory markers * is her COPD +/- NIMA contributing to slow recovery?? * continue supportive therapy (3) Urinary tract infection: Code(s): N39.0 - Urinary tract infection, site not specified Status: Acute Assessment and Plan: * urine culture with Klebsiella * completed course of antibiotics (4) Essential hypertension: Code(s): I10 - Essential (primary) hypertension Status: Acute Assessment and Plan: * reasonable control * follow trend of hemodynamics (5) Type 2 diabetes mellitus with diabetic chronic kidney disease: Qualifiers: Chronic kidney disease stage: stage 4 (severe) Diabetes mellitus prison insulin use: with urban forester use Qualified Code(s): E11.22 - Type 2 diabetes mellitus with diabetic chronic kidney disease; N18.4 - Chronic kidney disease, stage 4 (severe); Z79.4 - hospice care consultant (current) use of insulin Code(s): E11.22 - Type 2 diabetes mellitus with diabetic chronic kidney disease Status: Acute Assessment and Plan: * follow accucheks * on Lantus and SSI Will continue to follow from a distance. Subjective Date/time seen: 10/24/20 18:44 Chart reviewed since admission -- doing better from renal standpoint but not working wiht PT/OT very much and her oral intake has been suboptimal; no apparent distress noted. Exam Narrative: Exam Narrative: General: WD/WN female in NAD Heart: normal S1 and S2; no rub Lungs: clear to auscultation Abdomen: soft, nontender, nondistended, positive bowel sounds Extremities: no cyanosis or clubbing; no edema Skin: warm and dry Objective Data Vital Signs Vital Signs: Vital Signs Temp Pulse Resp BP Pulse Ox 10/24/20 16:00 36.1 C L 92 20 137/76 91 01/11/21 12:00 36.1 C L 85 24 H 149/80 H 96 10/24/20 09:57 70 10/24/20 08:00 36.1 C L 70 24 H 152/81 H 93 10/24/20 04:00 36.0 C L 101 H 21 H 143/91 H 91 10/24/20 00:00 36.6 C 89 21 H 148/74 H 90 10/23/20 21:06 80 10/23/20 20:00 36.6 C 95 20 139/70 95 Intake/Output Intake/Output: Intake & Output 10/21/20 10/22/20 10/23/20 10/24/20 23:59 23:59 23:59 23:59 Intake Total 7984 516 9302 1730 Output Total 1200 1500 1800 800 Balance 600 -900 -705 930 Meds/Results Medications: Active Medications Generic Name Dose Route Start Last Admin Trade Name Freq PRN Reason Stop Dose Admin Acetaminophen 650 mg 10/16/20 21:16 10/20/20 06:19 Acetaminophen 325 Mg Tablet PO 650 mg Q4H PRN Administration Mild Pain (1-3) or Fever Albuterol 2 puff 10/17/20 09:11 Albuterol Sulfate (*Sp) Aerosol 1 Puff INHALATION Q6HRT PRN Shortness Of Breath
--- NOTE | 2020-10-24 18:44 | PM.PNNEP ---
Progress Note: A&P Assessment and Plan (1) Chronic renal failure, stage 4 (severe): Code(s): N18.4 - Chronic kidney disease, stage 4 (severe) Status: Chronic Assessment and Plan: baseline creatinine runs ~ 1.9 - 2.4mg/dl due to combination of HTN and diabetes along with nephrolithiasis (2) COVID-19: Code(s): U07.1 - COVID-19 Status: Acute Assessment and Plan: tested positive (10/16/20) CXR results noted and still requiring supplemental oxygen on dexamethasone remdesivir contraindicated by CKD monitor inflammatory markers is her COPD +/- NIMA contributing to slow recovery?? continue supportive therapy (3) Urinary tract infection: Code(s): N39.0 - Urinary tract infection, site not specified Status: Acute Assessment and Plan: urine culture with Klebsiella completed course of antibiotics (4) Essential hypertension: Code(s): I10 - Essential (primary) hypertension Status: Acute Assessment and Plan: reasonable control follow trend of hemodynamics (5) Type 2 diabetes mellitus with diabetic chronic kidney disease: Qualifiers: Chronic kidney disease stage: stage 4 (severe) Diabetes mellitus watermaster insulin use: with watermaster use Qualified Code(s): E11.22 - Type 2 diabetes mellitus with diabetic chronic kidney disease; N18.4 - Chronic kidney disease, stage 4 (severe); Z79.4 - supervisor intermediates (current) use of insulin Code(s): E11.22 - Type 2 diabetes mellitus with diabetic chronic kidney disease Status: Acute Assessment and Plan: follow accucheks on Lantus and SSI Will continue to follow from a distance. Subjective Date/time seen: 10/24/20 18:44 Chart reviewed since admission -- doing better from renal standpoint but not working wiht PT/OT very much and her oral intake has been suboptimal; no apparent distress noted. Exam Narrative: Exam Narrative: General: WD/WN female in NAD Heart: normal S1 and S2; no rub Lungs: clear to auscultation Abdomen: soft, nontender, nondistended, positive bowel sounds Extremities: no cyanosis or clubbing; no edema Skin: warm and dry Objective Data Vital Signs Vital Signs: Vital Signs Temp Pulse Resp BP Pulse Ox 10/24/20 16:00 36.1 C L 92 20 137/76 91 10/24/20 12:00 36.1 C L 85 24 H 149/80 H 96 10/24/20 09:57 70 10/24/20 08:00 36.1 C L 70 24 H 152/81 H 93 10/24/20 04:00 36.0 C L 101 H 21 H 143/91 H 91 10/24/20 00:00 36.6 C 89 21 H 148/74 H 90 10/23/20 21:06 80 10/23/20 20:00 36.6 C 95 20 139/70 95 Intake/Output Intake/Output: Intake & Output 10/21/20 10/22/20 10/23/20 10/24/20 23:59 23:59 23:59 23:59 Intake Total 2839 633 3524 1730 Output Total 1200 1500 1800 800 Balance 600 900 705 930 Meds/Results Medications: Active Medications Generic Name Dose Route Start Last Admin Trade Name Freq PRN Reason Stop Dose Admin Acetaminophen 650 mg 10/16/20 21:16 10/20/20 06:19 Acetaminophen 325 Mg Tablet PO 650 mg Q4H PRN Administration Mild Pain (1-3) or Fever Albuterol 2 puff 10/17/20 09:11 Albuterol Sulfate (*Sp) Aerosol 1 Puff INHALATION Q6HRT PRN Shortness Of Breath Atorvastatin Calcium 80 mg 10/17/20 09:00 10/24/20 09:57 Atorvastatin 40 Mg Tablet PO 80 mg DAILY MO Administration Dexamethasone Sodium Phosphate 6 mg 10/17/20 22:00 10/24/20 09:57 Dexamethasone Sod Phos Inj 4 Mg/Ml Vial IV PUSH 10/26/20 09:01 6 mg DAILY MO Administration Dextrose 12.5 gm 10/16/20 14:03 Dextrose 50% 25 Gm/50 Ml Syringe IV PUSH PRN PRN Hypoglycemia Protocol Famotidine 20 mg 10/16/20 21:00 10/24/20 09:57 Famotidine 20 Mg Tablet BY MOUTH 20 mg Q12HR MO Administration Glucagon 1 mg 10/16/20 14:03 Glucagon For Inj 1 Mg Vial IM PRN PRN Hypoglycemia Protocol Glucose 15 gm 10/16/20 14:03 Glucose Oral Ge
[2020-10-24] MEDS: INSULIN GLARGINE (*BKC) 100 UNITS/ML 25 UNITS SUB-Q (21:55)
[2020-10-24 22:52] LABS: Glucose Point of Care 257 (65-105)
[2020-10-25] VITALS (9 sets, daily range): BP systolic 132–151; BP diastolic 75–85; PULSE 78–88; RESP 20–28; TEMP 36.2–36.4; O2SAT 93–96
[2020-10-25] MEDS: HEPARIN SODIUM 5,000 UNITS/ML VIAL 5000 UNITS SUB-Q ×3 (05:55→22:17)
[2020-10-25 06:36] LABS: Hematocrit 46.8 % (37.0-47.0); Hemoglobin 14.9 g/dL (12.0-15.0); Mean Corpuscular HGB Conc 31.8 g/dl (32-36); Mean Corpuscular Hemoglobin 27.1 pg (26-34); Mean Corpuscular Volume 85.1 fl (80-100); Mean Platelet Volume 11.6 fl (7.4-10.4); Platelet Count Result 288 k/mm3 (150-375); White Blood Count 8.6 K/mm3 (4.5-10.0)
[2020-10-25 07:01] LABS: Alanine Aminotransferase 28 U/L (4-35); Albumin Level 3.5 g/dL (3.5-5.1); Alkaline Phosphatase 79 U/L (38-126); Anion Gap 7 mmol/L (8-16); Aspartate Amino Transferase 36 U/L (14-36); Bilirubin,Total 0.8 mg/dL (0.2-1.3); Blood Urea Nitrogen 45 mg/dL (7-17); CRP 4.5 mg/dL (<1.0); Calcium 9.2 mg/dL (8.4-10.2); Carbon Dioxide 27 mmol/L (22-30); Chloride 107 mmol/L (98-107); Estimated CRCL calculation 31 ml/min; Estimated Glomerular Filt Rate 26; Glucose 240 mg/dL (65-105); Potassium 3.9 mmol/L (3.4-5.0); Sodium 141 mmol/L (137-145)
[2020-10-25 07:20] LABS: Lactate Dehydrogenase 764 U/L (313-618)
[2020-10-25] MEDS: DEXAMETHASONE SOD PHOS INJ 4 MG/ML VIAL 6 MG IV PUSH (07:45)
[2020-10-25 07:52] LABS: Glucose Point of Care 240 (65-105)
[2020-10-25] MEDS: INSULIN ASPART (*BKC) 100 UNITS/ML SUB-Q ×3 (07:53→17:55)
[2020-10-25] MEDS: ATORVASTATIN 40 MG TABLET 80 MG PO (07:56)
[2020-10-25] MEDS: PANTOPRAZOLE 40 MG TABLET PO (07:57)
[2020-10-25] MEDS: METOPROLOL TARTRATE 25 MG TABLET PO ×2 (07:57→20:31)
[2020-10-25] MEDS: FAMOTIDINE 20 MG TABLET BY MOUTH ×2 (07:57→20:31)
[2020-10-25] MEDS: NIFEdipine 30 MG TAB.ER.24 PO (07:57)
[2020-10-25] MEDS: TOLNAFTATE 1% POWDER 45 GM BTL 1 APPLIC TOPICAL ×2 (08:18→20:52)
[2020-10-25 13:08] LABS: Glucose Point of Care 306 (65-105)
--- NOTE | 2020-10-25 15:17 | PCNWS ---
Weekly nutritional screen. Patient is tolerating current diet. She states to eating about 50% of meal today. Appetite has improved. No significant weight loss reported. No further nutritional needs at this time.
--- NOTE | 2020-10-25 16:35 | P.PNIM_ITS ---
Progress Note: A&P Assessment and Plan (1) COVID-19: Code(s): U07.1 - COVID-19 Status: Acute Assessment and Plan: * COVID positive 10/16/20. CXR shows mild interval worsening of airspace disease. * Continue supplemental O2 and wean as tolerated to keep O2 saturations > 90%. * Weaned down to 5 L today. * Continue dexamethasone (day 9). Antiviral therapy not recommended due to renal function. * Continue supportive care with Tylenol for fevers, albuterol MDI, incentive spirometer. (2) Acute respiratory failure: Qualifiers: Respiratory failure complication: hypoxia Qualified Code(s): J96.01 - Acute respiratory failure with hypoxia Code(s): J96.00 - Acute respiratory failure, unspecified whether with hypoxia or hypercapnia Status: Acute Assessment and Plan: * See above. (3) Urinary tract infection: Qualifiers: Urinary tract infection type: site unspecified Hematuria presence: without hematuria Qualified Code(s): N39.0 - Urinary tract infection, site not specified Code(s): N39.0 - Urinary tract infection, site not specified Status: Acute Assessment and Plan: * Urine culture grew Klebsiella. Completed course of Augmentin. No further symptoms. * Blood cultures negative. (4) Chronic renal failure, stage 4 (severe): Code(s): N18.4 - Chronic kidney disease, stage 4 (severe) Status: Chronic Assessment and Plan: * Cr back near her baseline. She follows with Dr Hdez. * Appreciate nephrology input. (5) Hypertensive cardiomegaly with heart failure: Code(s): I11.0 - Hypertensive heart disease with heart failure Status: Acute Assessment and Plan: * Blood pressures variable but stable maintained on her home metoprolol and nifedipine. * Monitor BP and adjust treatment as needed. (6) Type 2 diabetes mellitus with diabetic chronic kidney disease: Qualifiers: Diabetes mellitus mcfp insulin use: with mcfp use Chronic kidney disease stage: stage 4 (severe) Qualified Code(s): E11.22 - Type 2 diabetes mellitus with diabetic chronic kidney disease; N18.4 - Chronic kidney disease, stage 4 (severe); Z79.4 - group home (current) use of insulin Code(s): E11.22 - Type 2 diabetes mellitus with diabetic chronic kidney disease Status: Acute Assessment and Plan: * With significant insulin resistance on high doses of insulin at home, confirmed with her endocrinology PA by previous provider. Patient usually takes U500 strength insulin at home and sees JETHRO Lehman * Hgb A1c 8.1% 08/19/20. Continue Lantus and SSI. Blood sugars elevated today. (7) CAD (coronary artery disease): Qualifiers: Coronary Disease-Associated Artery/Lesion type: unspecified vessel or lesion type [place] vs. transplanted heart: [place] heart Associated angina: without angina Qualified Code(s): I25.10 - Atherosclerotic heart disease of [place] coronary artery without angina pectoris Code(s): I25.10 - Atherosclerotic heart disease of [place] coronary artery without angina pectoris Status: Acute Assessment and Plan: * History of 2 coronary stents. Stable, denies chest pain. Additional Plan * Recent visit with Dr Fowler, pulmonology, suggests concern for possible sleep
--- NOTE | 2020-10-25 16:35 | PM.IMPN ---
Progress Note: A&P Assessment and Plan (1) COVID-19: Code(s): U07.1 - COVID-19 Status: Acute Assessment and Plan: COVID positive 10/16/20. CXR shows mild interval worsening of airspace disease. Continue supplemental O2 and wean as tolerated to keep O2 saturations > 90%. Weaned down to 5 L today. Continue dexamethasone (day 9). Antiviral therapy not recommended due to renal function. Continue supportive care with Tylenol for fevers, albuterol MDI, incentive spirometer. (2) Acute respiratory failure: Qualifiers: Respiratory failure complication: hypoxia Qualified Code(s): J96.01 - Acute respiratory failure with hypoxia Code(s): J96.00 - Acute respiratory failure, unspecified whether with hypoxia or hypercapnia Status: Acute Assessment and Plan: See above. (3) Urinary tract infection: Qualifiers: Urinary tract infection type: site unspecified Hematuria presence: without hematuria Qualified Code(s): N39.0 - Urinary tract infection, site not specified Code(s): N39.0 - Urinary tract infection, site not specified Status: Acute Assessment and Plan: Urine culture grew Klebsiella. Completed course of Augmentin. No further symptoms. Blood cultures negative. (4) Chronic renal failure, stage 4 (severe): Code(s): N18.4 - Chronic kidney disease, stage 4 (severe) Status: Chronic Assessment and Plan: Cr back near her baseline. She follows with Dr Hdez. Appreciate nephrology input. (5) Hypertensive cardiomegaly with heart failure: Code(s): I11.0 - Hypertensive heart disease with heart failure Status: Acute Assessment and Plan: Blood pressures variable but stable maintained on her home metoprolol and nifedipine. Monitor BP and adjust treatment as needed. (6) Type 2 diabetes mellitus with diabetic chronic kidney disease: Qualifiers: Diabetes mellitus watermelon harvesting supervisor insulin use: with watermelon harvesting supervisor use Chronic kidney disease stage: stage 4 (severe) Qualified Code(s): E11.22 - Type 2 diabetes mellitus with diabetic chronic kidney disease; N18.4 - Chronic kidney disease, stage 4 (severe); Z79.4 - long term acute care registered nurse (current) use of insulin Code(s): E11.22 - Type 2 diabetes mellitus with diabetic chronic kidney disease Status: Acute Assessment and Plan: With significant insulin resistance on high doses of insulin at home, confirmed with her endocrinology PA by previous provider. Patient usually takes U500 strength insulin at home and sees JETHRO Lehman Hgb A1c 8.1% 08/19/20. Continue Lantus and SSI. Blood sugars elevated today. (7) CAD (coronary artery disease): Qualifiers: Coronary Disease-Associated Artery/Lesion type: unspecified vessel or lesion type [place] vs. transplanted heart: [place] heart Associated angina: without angina Qualified Code(s): I25.10 - Atherosclerotic heart disease of [place] coronary artery without angina pectoris Code(s): I25.10 - Atherosclerotic heart disease of [place] coronary artery without angina pectoris Status: Acute Assessment and Plan: History of 2 coronary stents. Stable, denies chest pain. Additional Plan Recent visit with Dr Fowler, pulmonology, suggests concern for possible sleep apnea however she has declined sleep study at that time. She will benefit from a sleep study once she recovers from COVID. Subjective Date/time seen: 10/25/20 1430 Interval history: Ms. Falk is a 70yo F admitted for acute respiratory failure secondary to COVID. She says she is feeling great . Breathing is great . She is upset that she has gotten peaches
[2020-10-25 17:39] LABS: Glucose Point of Care 336 (65-105)
[2020-10-25] MEDS: INSULIN GLARGINE (*BKC) 100 UNITS/ML 25 UNITS SUB-Q (20:31)
[2020-10-25 20:50] LABS: Glucose Point of Care 398 (65-105)
[2020-10-26] VITALS (11 sets, daily range): BP systolic 118–148; BP diastolic 52–76; PULSE 68–88; RESP 16–20; TEMP 36.4–36.9; O2SAT 91–96
[2020-10-26 06:49] LABS: Basophils Absolute Auto 0.1 K/mm3 (0.0-0.1); Basophils Percent Auto 0.6 % (0.2-1.2); Eosinophils Absolute Auto 0.1 K/mm3 (0-0.3); Eosinophils Percent Auto 0.9 % (0-4.4); Hematocrit 42.2 % (37.0-47.0); Hemoglobin 13.8 g/dL (12.0-15.0); Immature Granulocyte Percent A 3.3 % (0-0.5); Lymphocytes Absolute Auto 1.09 K/mm3 (0.9-3.2); Lymphocytes Percent Auto 12.1 % (18.3-44.2); Mean Corpuscular HGB Conc 32.7 g/dl (32-36); Mean Corpuscular Hemoglobin 27.3 pg (26-34); Mean Corpuscular Volume 83.4 fl (80-100); Mean Platelet Volume 11.9 fl (7.4-10.4); Monocytes Absolute Auto 0.7 K/mm3 (0.1-0.6); Monocytes Percent Auto 7.7 % (2.6-8.5); Neutrophils Absolute Auto 6.8 K/mm3 (1.3-6.7); Neutrophils Percent Auto 75.4 % (45.5-73.1); Platelet Count Result 222 k/mm3 (150-375); Red Blood Count 5.06 M/mm3 (4.2-5.4); Red Cell Distribution Width 14.6 % (11.5-14.5)
[2020-10-26 07:02] LABS: Alanine Aminotransferase 26 U/L (4-35); Albumin Level 3.1 g/dL (3.5-5.1); Alkaline Phosphatase 66 U/L (38-126); Anion Gap 5 mmol/L (8-16); Aspartate Amino Transferase 35 U/L (14-36); Bilirubin,Total 0.7 mg/dL (0.2-1.3); Blood Urea Nitrogen 44 mg/dL (7-17); Calcium 8.9 mg/dL (8.4-10.2); Carbon Dioxide 26 mmol/L (22-30); Chloride 105 mmol/L (98-107); Estimated CRCL calculation 39 ml/min; Estimated Glomerular Filt Rate 34; Glucose 246 mg/dL (65-105); Potassium 4.2 mmol/L (3.4-5.0); Sodium 136 mmol/L (137-145)
[2020-10-26] MEDS: HEPARIN SODIUM 5,000 UNITS/ML VIAL 5000 UNITS SUB-Q ×3 (07:18→21:23)
[2020-10-26] MEDS: INSULIN ASPART (*BKC) 100 UNITS/ML SUB-Q ×3 (07:56→16:56)
[2020-10-26] MEDS: DEXAMETHASONE SOD PHOS INJ 4 MG/ML VIAL 6 MG IV PUSH (07:59)
[2020-10-26] MEDS: FAMOTIDINE 20 MG TABLET BY MOUTH ×2 (07:59→21:23)
[2020-10-26] MEDS: ATORVASTATIN 40 MG TABLET 80 MG PO (07:59)
[2020-10-26] MEDS: METOPROLOL TARTRATE 25 MG TABLET PO ×2 (07:59→21:23)
[2020-10-26] MEDS: PANTOPRAZOLE 40 MG TABLET PO (07:59)
[2020-10-26] MEDS: NIFEdipine 30 MG TAB.ER.24 PO (07:59)
[2020-10-26] MEDS: TOLNAFTATE 1% POWDER 45 GM BTL 1 APPLIC TOPICAL ×2 (08:00→21:23)
[2020-10-26 08:18] LABS: Glucose Point of Care 233 (65-105)
[2020-10-26 11:39] LABS: Glucose Point of Care 300 (65-105)
--- NOTE | 2020-10-26 11:58 | PCPTNOTE ---
Patient refused treatment this session due to being too fatigued and just returned to bed. Attempted therapy session at 11:45am Pt refused treatment. Explained the importance of therapy and of getting up to Pt. Pt stated I've already been up and just got back to bed after walking to the restroom and back after using. I'm too worn out now. Will attempt again later.
--- NOTE | 2020-10-26 13:19 | PCOTNOTE ---
Attempted to see patient this pm, however patient refused activity out of bed stating. Encouraged ADLs due to patient finishing lunch and having food on gown. Pt declined stating, No, it's fine there. I don't care.
--- NOTE | 2020-10-26 13:28 | PCPTNOTE ---
Attempted therapy session for second time, Pt refused. Pt stated I don't need therapy. I don't care what the doctor said my legs are fine. I want to go home. Will continue per POC.
--- NOTE | 2020-10-26 14:31 | P.PNIM_ITS ---
Progress Note: A&P Assessment and Plan (1) COVID-19: Code(s): U07.1 - COVID-19 Status: Acute Assessment and Plan: * COVID positive 10/16/20. Repeat CXR yesterday shows mild interval worsening of airspace disease. * Continue supplemental O2 and wean as tolerated to keep O2 saturations > 90%. * Weaned down to 4 L today. Suspect possible untreated/undiagnosed sleep apnea may contribute to slow recovery. * Today completes her 10-day course of dexamethasone. Antiviral therapy not recommended due to renal function. * Continue supportive care with Tylenol for fevers, albuterol MDI, incentive spirometer. (2) Acute respiratory failure: Qualifiers: Respiratory failure complication: hypoxia Qualified Code(s): J96.01 - Acute respiratory failure with hypoxia Code(s): J96.00 - Acute respiratory failure, unspecified whether with hypoxia or hypercapnia Status: Acute Assessment and Plan: * See above. (3) Urinary tract infection: Qualifiers: Hematuria presence: without hematuria Urinary tract infection type: site unspecified Qualified Code(s): N39.0 - Urinary tract infection, site not specified Code(s): N39.0 - Urinary tract infection, site not specified Status: Acute Assessment and Plan: * Urine culture grew Klebsiella. Completed course of Augmentin. No further symptoms. * Blood cultures negative. (4) Chronic renal failure, stage 4 (severe): Code(s): N18.4 - Chronic kidney disease, stage 4 (severe) Status: Chronic Assessment and Plan: * Cr back near her baseline. She follows with Dr Hdez. * Appreciate nephrology input. (5) Hypertensive cardiomegaly with heart failure: Code(s): I11.0 - Hypertensive heart disease with heart failure Status: Acute Assessment and Plan: * Blood pressures variable but stable maintained on her home metoprolol and nifedipine. * Monitor BP and adjust treatment as needed. (6) Type 2 diabetes mellitus with diabetic chronic kidney disease: Qualifiers: Diabetes mellitus retirement insulin use: with product sales engineer use Chronic kidney disease stage: stage 4 (severe) Qualified Code(s): E11.22 - Type 2 javier betes mellitus with diabetic chronic kidney disease; N18.4 - Chronic kidney disease, stage 4 (severe); Z79.4 - USP (current) use of insulin Code(s): E11.22 - Type 2 diabetes mellitus with diabetic chronic kidney disease Status: Acute Assessment and Plan: * With significant insulin resistance on high doses of insulin at home, confirmed with her endocrinology PA by previous provider. Patient usually takes U500 strength insulin at home and sees JETHRO Lehman * Hgb A1c 8.1% 08/19/20. Continue Lantus and SSI. Blood sugars elevated, add scheduled novolog and monitor. (7) CAD (coronary artery disease): Qualifiers: Coronary Disease-Associated Artery/Lesion type: unspecified vessel or lesion type [place] vs. transplanted heart: [place] heart Associated angina: without angina Qualified Code(s): I25.10 - Atherosclerotic heart disease of [place] coronary artery without angina pectoris Code(s): I25.10 - Atherosclerotic heart disease of [place] coronary artery without angina pectoris Status: Acute Assessment and Plan: * History of 2 coronary stents. Stable, denies chest
--- NOTE | 2020-10-26 14:31 | PM.IMPN ---
Progress Note: A&P Assessment and Plan (1) COVID-19: Code(s): U07.1 - COVID-19 Status: Acute Assessment and Plan: COVID positive 10/16/20. Repeat CXR yesterday shows mild interval worsening of airspace disease. Continue supplemental O2 and wean as tolerated to keep O2 saturations > 90%. Weaned down to 4 L today. Suspect possible untreated/undiagnosed sleep apnea may contribute to slow recovery. Today completes her 10-day course of dexamethasone. Antiviral therapy not recommended due to renal function. Continue supportive care with Tylenol for fevers, albuterol MDI, incentive spirometer. (2) Acute respiratory failure: Qualifiers: Respiratory failure complication: hypoxia Qualified Code(s): J96.01 - Acute respiratory failure with hypoxia Code(s): J96.00 - Acute respiratory failure, unspecified whether with hypoxia or hypercapnia Status: Acute Assessment and Plan: See above. (3) Urinary tract infection: Qualifiers: Hematuria presence: without hematuria Urinary tract infection type: site unspecified Qualified Code(s): N39.0 - Urinary tract infection, site not specified Code(s): N39.0 - Urinary tract infection, site not specified Status: Acute Assessment and Plan: Urine culture grew Klebsiella. Completed course of Augmentin. No further symptoms. Blood cultures negative. (4) Chronic renal failure, stage 4 (severe): Code(s): N18.4 - Chronic kidney disease, stage 4 (severe) Status: Chronic Assessment and Plan: Cr back near her baseline. She follows with Dr Hdez. Appreciate nephrology input. (5) Hypertensive cardiomegaly with heart failure: Code(s): I11.0 - Hypertensive heart disease with heart failure Status: Acute Assessment and Plan: Blood pressures variable but stable maintained on her home metoprolol and nifedipine. Monitor BP and adjust treatment as needed. (6) Type 2 diabetes mellitus with diabetic chronic kidney disease: Qualifiers: Diabetes mellitus terminal press operator insulin use: with penitentiary use Chronic kidney disease stage: stage 4 (severe) Qualified Code(s): E11.22 - Type 2 diabetes mellitus with diabetic chronic kidney disease; N18.4 - Chronic kidney disease, stage 4 (severe); Z79.4 - termite control representative (current) use of insulin Code(s): E11.22 - Type 2 diabetes mellitus with diabetic chronic kidney disease Status: Acute Assessment and Plan: With significant insulin resistance on high doses of insulin at home, confirmed with her endocrinology PA by previous provider. Patient usually takes U500 strength insulin at home and sees JETHRO Lehman Hgb A1c 8.1% 08/19/20. Continue Lantus and SSI. Blood sugars elevated, add scheduled novolog and monitor. (7) CAD (coronary artery disease): Qualifiers: Coronary Disease-Associated Artery/Lesion type: unspecified vessel or lesion type [place] vs. transplanted heart: [place] heart Associated angina: without angina Qualified Code(s): I25.10 - Atherosclerotic heart disease of [place] coronary artery without angina pectoris Code(s): I25.10 - Atherosclerotic heart disease of [place] coronary artery without angina pectoris Status: Acute Assessment and Plan: History of 2 coronary stents. Stable, denies chest pain. Subjective Date/time seen: 10/26/20 14:30 Interval history: Ms. Falk is a 70yo F admitted for acute respiratory failure secondary to COVID. Says she feels fine and breathing is great however it seems she is frustrated and using sarcasm. She denies chest pain, nausea, vomiting or abdominal pain. Rev
[2020-10-26 16:45] LABS: Glucose Point of Care 429 (65-105)
[2020-10-26] MEDS: INSULIN ASPART (*BKC) 100 UNITS/ML 6 UNITS SUB-Q (16:57)
[2020-10-26] MEDS: INSULIN GLARGINE (*BKC) 100 UNITS/ML 25 UNITS SUB-Q (21:23)
[2020-10-26 21:45] LABS: Glucose Point of Care 298 (65-105)
[2020-10-27] VITALS (13 sets, daily range): BP systolic 125–152; BP diastolic 64–76; PULSE 69–82; RESP 16–20; TEMP 36.4–36.9; O2SAT 88–92
[2020-10-27] MEDS: HEPARIN SODIUM 5,000 UNITS/ML VIAL 5000 UNITS SUB-Q ×3 (05:23→21:16)
[2020-10-27 06:47] LABS: Albumin Level 3.2 g/dL (3.5-5.1); Anion Gap 5 mmol/L (8-16); Blood Urea Nitrogen 41 mg/dL (7-17); Calcium 8.7 mg/dL (8.4-10.2); Carbon Dioxide 25 mmol/L (22-30); Chloride 104 mmol/L (98-107); Estimated CRCL calculation 32 ml/min; Estimated Glomerular Filt Rate 32; Glucose 236 mg/dL (65-105); Phosphorus 3.3 mg/dL (2.5-4.5); Potassium 3.8 mmol/L (3.4-5.0); Sodium 134 mmol/L (137-145)
[2020-10-27 08:03] LABS: Glucose Point of Care 188 (65-105)
[2020-10-27] MEDS: METOPROLOL TARTRATE 25 MG TABLET PO ×2 (09:18→21:15)
[2020-10-27] MEDS: PANTOPRAZOLE 40 MG TABLET PO (09:19)
[2020-10-27] MEDS: NIFEdipine 30 MG TAB.ER.24 PO (09:19)
[2020-10-27] MEDS: ATORVASTATIN 40 MG TABLET 80 MG PO (09:19)
[2020-10-27] MEDS: TOLNAFTATE 1% POWDER 45 GM BTL 1 APPLIC TOPICAL ×2 (09:20→21:16)
[2020-10-27] MEDS: INSULIN ASPART (*BKC) 100 UNITS/ML 6 UNITS SUB-Q ×3 (09:21→17:39)
[2020-10-27] MEDS: INSULIN ASPART (*BKC) 100 UNITS/ML SUB-Q ×2 (12:19→17:38)
[2020-10-27 12:22] LABS: Glucose Point of Care 256 (65-105)
--- NOTE | 2020-10-27 13:30 | P.PNIM_ITS ---
Progress Note: A&P Assessment and Plan (1) COVID-19: Code(s): U07.1 - COVID-19 Status: Acute Assessment and Plan: * COVID positive 10/16/20. Repeat CXR 10/25 shows mild interval worsening of airspace disease. * Continue supplemental O2 and wean as tolerated to keep O2 saturations > 90%. * Tolerating between 2-4 L today. Suspect possible untreated/undiagnosed sleep apnea may contribute to slow recovery. She wants to go home tomorrow with supplemental O2. * Completed her 10-day course of dexamethasone 10/26. Antiviral therapy not recommended due to renal function. * Continue supportive care with Tylenol for fevers, albuterol MDI, incentive spirometer. (2) Acute respiratory failure: Qualifiers: Respiratory failure complication: hypoxia Qualified Code(s): J96.01 - Acute respiratory failure with hypoxia Code(s): J96.00 - Acute respiratory failure, unspecified whether with hypoxia or hype rcapnia Status: Acute Assessment and Plan: * See above. (3) Urinary tract infection: Qualifiers: Hematuria presence: without hematuria Urinary tract infection type: site unspecified Qualified Code(s): N39.0 - Urinary tract infection, site not specified Code(s): N39.0 - Urinary tract infection, site not specified Status: Acute Assessment and Plan: * Urine culture grew Klebsiella. Completed course of Augmentin. No further symptoms. * Blood cultures negative. (4) Chronic renal failure, stage 4 (severe): Code(s): N18.4 - Chronic kidney disease, stage 4 (severe) Status: Chronic Assessment and Plan: * Cr back near her baseline. She follows with Dr Hdez. * Appreciate nephrology input. (5) Hypertensive cardiomegaly with heart failure: Code(s): I11.0 - Hypertensive heart disease with heart failure Status: Acute Assessment and Plan: * Blood pressures variable but stable, last 125/71 maintained on her home metoprolol and nifedipine. * Monitor BP and adjust treatment as needed. (6) Type 2 diabetes mellitus with diabetic chronic kidney disease: Qualifiers: Diabetes mellitus remote computer terminal operator insulin use: with skilled nursing use Chronic kidney disease stage: stage 4 (severe) Qualified Code(s): E11.22 - Type 2 diabetes mellitus with diabetic chronic kidney disease; N18.4 - Chronic kidney disease, stage 4 (severe); Z79.4 - manager intermediate (current) use of insulin Code(s): E11.22 - Type 2 diabetes mellitus with diabetic chronic kidney disease Status: Acute Assessment and Plan: * With significant insulin resistance on high doses of insulin at home, confirmed with her endocrinology PA by previous provider. Patient usually takes U500 strength insulin at home and sees JETHRO Lehman * Hgb A1c 8.1% 08/19/20. Continue Lantus and SSI. Blood sugars elevated, scheduled novolog added yesterday, improving some. (7) CAD (coronary artery disease): Qualifiers: Coronary Disease-Associated Artery/Lesion type: unspecified vessel or lesion type [place] vs. transplanted heart: [place] heart Associated angina: without angina Qualified Code(s): I25.10 - Atherosclerotic heart disease of [place] coronary artery without angina pectoris Code(s): I25.10 - Atherosclerotic heart disease of [place] coronary artery without angina pectoris Status: Acute
--- NOTE | 2020-10-27 13:30 | PM.IMPN ---
Progress Note: A&P Assessment and Plan (1) COVID-19: Code(s): U07.1 - COVID-19 Status: Acute Assessment and Plan: COVID positive 10/16/20. Repeat CXR 10/25 shows mild interval worsening of airspace disease. Continue supplemental O2 and wean as tolerated to keep O2 saturations > 90%. Tolerating between 2-4 L today. Suspect possible untreated/undiagnosed sleep apnea may contribute to slow recovery. She wants to go home tomorrow with supplemental O2. Completed her 10-day course of dexamethasone 10/26. Antiviral therapy not recommended due to renal function. Continue supportive care with Tylenol for fevers, albuterol MDI, incentive spirometer. (2) Acute respiratory failure: Qualifiers: Respiratory failure complication: hypoxia Qualified Code(s): J96.01 - Acute respiratory failure with hypoxia Code(s): J96.00 - Acute respiratory failure, unspecified whether with hypoxia or hypercapnia Status: Acute Assessment and Plan: See above. (3) Urinary tract infection: Qualifiers: Hematuria presence: without hematuria Urinary tract infection type: site unspecified Qualified Code(s): N39.0 - Urinary tract infection, site not specified Code(s): N39.0 - Urinary tract infection, site not specified Status: Acute Assessment and Plan: Urine culture grew Klebsiella. Completed course of Augmentin. No further symptoms. Blood cultures negative. (4) Chronic renal failure, stage 4 (severe): Code(s): N18.4 - Chronic kidney disease, stage 4 (severe) Status: Chronic Assessment and Plan: Cr back near her baseline. She follows with Dr Hdez. Appreciate nephrology input. (5) Hypertensive cardiomegaly with heart failure: Code(s): I11.0 - Hypertensive heart disease with heart failure Status: Acute Assessment and Plan: Blood pressures variable but stable, last 125/71 maintained on her home metoprolol and nifedipine. Monitor BP and adjust treatment as needed. (6) Type 2 diabetes mellitus with diabetic chronic kidney disease: Qualifiers: Diabetes mellitus middle or intermediate school principal insulin use: with halfway use Chronic kidney disease stage: stage 4 (severe) Qualified Code(s): E11.22 - Type 2 diabetes mellitus with diabetic chronic kidney disease; N18.4 - Chronic kidney disease, stage 4 (severe); Z79.4 - terminal clerk (current) use of insulin Code(s): E11.22 - Type 2 diabetes mellitus with diabetic chronic kidney disease Status: Acute Assessment and Plan: With significant insulin resistance on high doses of insulin at home, confirmed with her endocrinology PA by previous provider. Patient usually takes U500 strength insulin at home and sees JETHRO Lehman Hgb A1c 8.1% 08/19/20. Continue Lantus and SSI. Blood sugars elevated, scheduled novolog added yesterday, improving some. (7) CAD (coronary artery disease): Qualifiers: Coronary Disease-Associated Artery/Lesion type: unspecified vessel or lesion type [place] vs. transplanted heart: [place] heart Associated angina: without angina Qualified Code(s): I25.10 - Atherosclerotic heart disease of [place] coronary artery without angina pectoris Code(s): I25.10 - Atherosclerotic heart disease of [place] coronary artery without angina pectoris Status: Acute Assessment and Plan: History of 2 coronary stents. Stable, denies chest pain. Subjective Date/time seen: 10/27/20 13:00 Interval history: Ms. Falk is a 70yo F admitted for acute respiratory failure secondary to COVID. She reports feeling okay and wants to go home. She denies chest pain, nausea, vomitin
[2020-10-27] MEDS: FAMOTIDINE 20 MG TABLET BY MOUTH ×2 (15:15→21:15)
[2020-10-27 17:01] LABS: Glucose Point of Care 299 (65-105)
[2020-10-27] MEDS: SALINE 0.65% NAS SOLN 44 ML BTL 1 SPRAY NASAL (17:43)
[2020-10-27] MEDS: INSULIN GLARGINE (*BKC) 100 UNITS/ML 25 UNITS SUB-Q (21:16)
[2020-10-27 21:31] LABS: Glucose Point of Care 253 (65-105)
[2020-10-28] VITALS (15 sets, daily range): BP systolic 111–148; BP diastolic 57–70; PULSE 68–112; RESP 18–20; TEMP 36.6–36.7; O2SAT 87–92
[2020-10-28] MEDS: HEPARIN SODIUM 5,000 UNITS/ML VIAL 5000 UNITS SUB-Q ×2 (05:09→14:33)
[2020-10-28 07:01] LABS: Anion Gap 4 mmol/L (8-16); Blood Urea Nitrogen 35 mg/dL (7-17); CRP 1.5 mg/dL (<1.0); Calcium 8.4 mg/dL (8.4-10.2); Carbon Dioxide 25 mmol/L (22-30); Chloride 104 mmol/L (98-107); Estimated CRCL calculation 36 ml/min; Estimated Glomerular Filt Rate 37; Glucose 168 mg/dL (65-105); Magnesium 1.7 mg/dL (1.6-2.3); Phosphorus 3.4 mg/dL (2.5-4.5); Potassium 3.8 mmol/L (3.4-5.0); Sodium 133 mmol/L (137-145)
[2020-10-28 08:18] LABS: Glucose Point of Care 192 (65-105)
[2020-10-28] MEDS: INSULIN ASPART (*BKC) 100 UNITS/ML 6 UNITS SUB-Q ×3 (09:50→17:12)
[2020-10-28] MEDS: NIFEdipine 30 MG TAB.ER.24 PO (09:51)
[2020-10-28] MEDS: ATORVASTATIN 40 MG TABLET 80 MG PO (09:51)
[2020-10-28] MEDS: PANTOPRAZOLE 40 MG TABLET PO (09:51)
[2020-10-28] MEDS: METOPROLOL TARTRATE 25 MG TABLET PO (09:51)
[2020-10-28] MEDS: FAMOTIDINE 20 MG TABLET BY MOUTH (09:52)
[2020-10-28] MEDS: MAGNESIUM OXIDE 200 MG TABLET PO (09:53)
[2020-10-28] MEDS: TOLNAFTATE 1% POWDER 45 GM BTL 1 APPLIC TOPICAL (09:55)
--- NOTE | 2020-10-28 10:00 | HOMEO2EVAL ---
Home Oxygen Evaluation RC: Home Oxygen (O2) Evaluation Start: 10/28/20 08:19 Freq: ONCE Status: Active Protocol: RPE Activity Type Activity Date Activity User E-Sign Co-Sign Detail Recorded Client Recorded Date Recorded By Document 10/28/20 09:25 [email or web address] [email or web address] 10/28/20 10:00 DJO Document 10/28/20 09:30 [email or web address] [email or web address] 10/28/20 10:00 DJO Document 10/28/20 09:35 [email or web address] [email or web address] 10/28/20 10:00 DJO Document 10/28/20 09:40 [email or web address] [email or web address] 10/28/20 10:00 DJO Document 10/28/20 09:45 [email or web address] [email or web address] 10/28/20 10:00 DJO Document 10/28/20 09:55 [email or web address] [email or web address] 10/28/20 10:00 DJO 10/28/20 10/28/20 10/28/20 09:25 09:30 09:35 Home O2 Evaluation Test Phase Resting Resting Resting Oxygen Delivery Room Air Nasal Cannula Nasal Cannula Oxygen Flow Rate (L/min) 1 2 Pulse Oximetry (90-100 %) 87 L 88 L 91 Pulse Rate (60-100 beats/min) 99 97 98 Activity Tolerance Rating of Perceived Dyspnea (PD) Treatment Charges O2 Evaluation 10/28/20 10/28/20 10/28/20 09:40 09:45 09:55 Home O2 Evaluation Test Phase Exercise Exercise Resting Oxygen Delivery Nasal Cannula Nasal Cannula Nasal Cannula Oxygen Flow Rate (L/min) 2 3 2 Pulse Oximetry (90-100 %) 87 L 91 90 Pulse Rate (60-100 beats/min) 109 H 112 H 98 Activity Tolerance Fair Rating of Perceived Dyspnea (PD) +2 Mild, Some Difficulty, Noticeable to the Observer Treatment Charges
[2020-10-28 12:24] LABS: Glucose Point of Care 230 (65-105)
[2020-10-28] MEDS: INSULIN ASPART (*BKC) 100 UNITS/ML SUB-Q ×2 (12:43→17:11)
--- NOTE | 2020-10-28 13:02 | PCRCNOTE ---
PT SET UP WITH [facility] FOR HOME O2. TANK HAS BEEN DELIVERED. PLEASE CALL DME UPON DISCHARGE TO COORDINATE SOLUTIONS SPECIALIST AND O2 DROP OFF AT HOME. CALL CORDELL AT [phone]
--- NOTE | 2020-10-28 14:46 | PM.DS ---
DS: Admitting Diagnosis Admitting Diagnosis Admitting Diagnosis: UTI, JOSE E, weakness DS: Discharge Diagnosis Discharge Diagnosis (1) COVID-19: Code(s): U07.1 - COVID-19 Status: Acute Assessment and Plan: Date of Admission 10/16/20 Date of Discharge 10/28/20 Ms. Falk is a 70yo F with history of CKD, heart failure, hypertension, insulin-dependent type 2 diabetes with significant insulin resistance maintained on high doses of insulin, and coronary artery disease history of 2 coronary stents who presented to the ED for evaluation of increased weakness and ambulatory dysfunction. She lives at home with her son who recently tested positive. Patient also then tested positive for COVID-19 here on 10/16/20. Chest XR shows evidence of pneumonia. She became hypoxic and was started on supplemental oxygen. She was treated with dexamethasone. Remdesivir was not used due to her renal function, as creatinine was 3.2 on arrival which eventually improved to her baseline 1.4 day of discharge. She was also found to have UTI and completed IV antibiotic therapy with augmentin. She continued to remain hypoxic throughout admission despite completing a 10-day course of dexamethasone. It is felt she may be suffering from sleep apnea and sleep study is recommended after she recovers from COVID (she has previously declined such after recently seeing pulmonology). Patient is very eager for discharge and home oxygen evaluation shows she requires 2L/min at rest and 3L/min with activity. Home health is arranged for continued PT/OT. She has shown clinical improvement and notes her shortness of breath is better. She is hemodynamically stable for discharge home with home health on 10/28/20 with instructions to follow up with PCP. COVID positive 10/16/20. Repeat CXR 10/25 shows mild interval worsening of airspace disease. Home O2 arranged at discharge noted above. Suspect possible untreated/undiagnosed sleep apnea may contribute to slow recovery. Completed her 10-day course of dexamethasone 10/26. Antiviral therapy not recommended due to renal function. Treated with supportive care with Tylenol for fevers, albuterol MDI, incentive spirometer. (2) Acute respiratory failure: Qualifiers: Respiratory failure complication: hypoxia Qualified Code(s): J96.01 - Acute respiratory failure with hypoxia Code(s): J96.00 - Acute respiratory failure, unspecified whether with hypoxia or hypercapnia Status: Acute Assessment and Plan: See above. (3) Urinary tract infection: Qualifiers: Hematuria presence: without hematuria Urinary tract infection type: site unspecified Qualified Code(s): N39.0 - Urinary tract infection, site not specified Code(s): N39.0 - Urinary tract infection, site not specified Status: Acute Assessment and Plan: Urine culture grew Klebsiella. Completed course of Augmentin. No further symptoms. Blood cultures negative. (4) Chronic renal failure, stage 4 (severe): Code(s): N18.4 - Chronic kidney disease, stage 4 (severe) Status: Chronic Assessment and Plan: Cr back near her baseline. She follows with Dr Hdez. (5) Hypertensive cardiomegaly with heart failure: Code(s): I11.0 - Hypertensive heart disease with heart failure Status: Acute Assessment and Plan: Blood pressures variable but stable maintained on her home metoprolol and nifedipine. (6) Type 2 diabetes mellitus with diabetic chronic kidney disease: Qualifiers: Diabetes mellitus senior care insulin use: with photograph developer use Chronic kidney disease stage: stage 4 (severe) Qualified Code(s): E11.22 - Type 2 diabetes mellitus with diabetic ch
[2020-10-29 00:40] LABS: Glucose Point of Care 211 (65-105)
== END 2020-10-28 20:35 | disposition home health service (06) | DRG 177 ==
LOC: ANHED 10:32 → ANH3MEDSUR 16:23
PROVIDERS: Internal Medicine Nephrology; Nurse Practitioner; Physician Assistant; Admitting Provider Internal Medicine; Emergency Provider Emergency Medicine; PCP Family Medicine; Visit Provider Physician Assistant
DX: U07.1 COVID-19 (principal); J96.01 Acute respiratory failure with hypoxia; N39.0 Urinary tract infection, site not specified; N18.4 Chronic kidney disease, stage 4 (severe); I25.10 Atherosclerotic heart disease of native coronary artery without angina pectoris; I12.9 Hypertensive chronic kidney disease with stage 1 through stage 4 chronic kidney disease, or unspecified chronic kidney disease; E11.22 Type 2 diabetes mellitus with diabetic chronic kidney disease; I25.2 Old myocardial infarction; E87.5 Hyperkalemia; B96.1 Klebsiella pneumoniae [K. pneumoniae] as the cause of diseases classified elsewhere; G47.30 Sleep apnea, unspecified
CPT/HCPCS: 36415; 36430; 36600; 51701; 71045; 76775; 80048; 80053; 80069; 80076; 81001; 82375; 82550; 82570; 82728; 82805; 83050; 83615; 83735; 84156; 84300; 84443; 84540; 85025; 85027; 85610; 85730; 86140; 86900; 86901; 87040; 87077; 87086; 87088; 87186; 93005; 94618; 96365; 96366; 96372; 96375; 96376; 97110; 97116; 97161; 97165; 97530; 97535; 99285; A9270; C9803; G0378; J1100; J1644; J1815; J1956; J2405; J7040; J7050; P9059; U0003

== ENCOUNTER 2020-12-17 08:33 | Outpatient (CLI) | payer MEDICARE, SELFPAY ==
[2020-12-17 10:22] LABS: Anion Gap 7 mmol/L (8-16); Blood Urea Nitrogen 32 mg/dL (7-17); Calcium 9.6 mg/dL (8.4-10.2); Carbon Dioxide 26 mmol/L (22-30); Chloride 105 mmol/L (98-107); Estimated Glomerular Filt Rate 28; Glucose 199 mg/dL (65-105); Phosphorus 4.7 mg/dL (2.5-4.5); Potassium 4.5 mmol/L (3.4-5.0); Sodium 138 mmol/L (137-145)
[2020-12-17 10:32] LABS: Parathyroid Intact 46.9 pg/mL (7.5-53.5)
[2020-12-17 11:13] LABS: Creatinine Urine 95.3 mg/dL
[2020-12-17 11:36] LABS: Vitamin D 25 Hydroxy 55.5 ng/mL
[2020-12-17 11:57] LABS: Total Protein Urine Random 244 mg/dL; Ur Ttl Prot Creatinine Ratio 2.56 mg/mg (0-0.20)
== END 2020-12-17 08:34 | disposition home or self-care (01) ==
PROVIDERS: PCP Family Medicine; Visit Provider Internal Medicine Nephrology
DX: N18.4 Chronic kidney disease, stage 4 (severe) (principal); E11.29 Type 2 diabetes mellitus with other diabetic kidney complication; I12.9 Hypertensive chronic kidney disease with stage 1 through stage 4 chronic kidney disease, or unspecified chronic kidney disease; R80.8 Other proteinuria
CPT/HCPCS: 36415; 80069; 82306; 82570; 83970; 84156

== ENCOUNTER 2021-03-23 09:47 | Outpatient (CLI) | payer MEDICARE, SELFPAY ==
[2021-03-23 10:26] LABS: Basophils Absolute Auto 0.1 K/mm3 (0.0-0.1); Basophils Percent Auto 0.9 % (0.2-1.2); Eosinophils Absolute Auto 0.2 K/mm3 (0-0.3); Eosinophils Percent Auto 2.5 % (0-4.4); Hemoglobin 14.4 g/dL (12.0-15.0); Immature Granulocyte Absolute 0.08 K/mm3 (0.00-0.031); Immature Granulocyte Percent A 0.9 % (0-0.5); Lymphocytes Absolute Auto 1.75 K/mm3 (0.9-3.2); Lymphocytes Percent Auto 19.6 % (18.3-44.2); Mean Corpuscular Hemoglobin 27.8 pg (26-34); Mean Corpuscular Volume 86.9 fl (80-100); Mean Platelet Volume 12.1 fl (7.4-10.4); Monocytes Absolute Auto 0.6 K/mm3 (0.1-0.6); Monocytes Percent Auto 6.5 % (2.6-8.5); Neutrophils Absolute Auto 6.2 K/mm3 (1.3-6.7); Neutrophils Percent Auto 69.6 % (45.5-73.1); Platelet Count Result 216 k/mm3 (150-375); Red Blood Count 5.18 M/mm3 (4.2-5.4); Red Cell Distribution Width 14.7 % (11.5-14.5); White Blood Count 8.9 K/mm3 (4.5-10.0)
[2021-03-23 10:34] LABS: Alanine Aminotransferase 26 U/L (4-35); Albumin Level 4.1 g/dL (3.5-5.1); Alkaline Phosphatase 80 U/L (38-126); Anion Gap 12 mmol/L (8-16); Aspartate Amino Transferase 30 U/L (14-36); Bilirubin,Total 0.7 mg/dL (0.2-1.3); Blood Urea Nitrogen 42 mg/dL (7-17); Calcium 9.9 mg/dL (8.4-10.2); Carbon Dioxide 23 mmol/L (22-30); Chloride 108 mmol/L (98-107); Cholesterol 133 mg/dL (0-200); Estimated Glomerular Filt Rate 23; Glucose 164 mg/dL (65-105); HDL Direct 31 mg/dL; Potassium 4.7 mmol/L (3.4-5.0); Sodium 143 mmol/L (137-145); Triglycerides 282 mg/dL (<150)
[2021-03-23 10:45] LABS: LDL Cholesterol Direct 45 mg/dL
[2021-03-28 10:56] LABS: Vitamin D 1,25 (OH)2 Total 45 pg/mL (18-72); Vitamin D2 1,25 (OH)2 <8 pg/mL; Vitamin D3 1,25 (OH)2 45 pg/mL
== END 2021-03-23 09:48 | disposition home or self-care (01) ==
PROVIDERS: PCP Family Medicine; Visit Provider Physician Assistant
DX: N18.4 Chronic kidney disease, stage 4 (severe) (principal); E11.22 Type 2 diabetes mellitus with diabetic chronic kidney disease; Z51.81 Encounter for therapeutic drug level monitoring; Z79.4 Long term (current) use of insulin; R63.5 Abnormal weight gain; R53.83 Other fatigue; E78.5 Hyperlipidemia, unspecified; E55.9 Vitamin D deficiency, unspecified
CPT/HCPCS: 36415; 80053; 80061; 82652; 84443; 85025

== ENCOUNTER 2021-04-03 16:09 | Outpatient (CLI) | payer MEDICARE, SELFPAY ==
--- NOTE | ~2021-04-03 | CT_ITS ---
EXAMINATION:CT chest high resolution wo co DATE: 04/03/2021 16:38 INDICATION: Shortness of breath. Personal history of COVID-19 pneumonia. TECHNIQUE: Computed tomography (CT) of the chest was performed without intravenous contrast. Automate d exposure control and iterative reconstruction technique were employed. The dose-length product (DLP ) was 557.88 mGy-cm. COMPARISON: Chest CT 04/17/2020, CT abdomen and pelvis 12/03/2016 FINDINGS: There is diffuse lung disease characterized by groundglass opacities, mosaic attenuation, a rchitectural distortion, and septal thickening, worst in the lower lobes. There is mild bronchiectasi s in the lower lungs. No honeycombing. No pleural effusion. The heart size is normal. There are coron peewee artery calcifications. No pericardial effusion. There are changes of left breast surgery. There a re bridging endplate osteophytes at multiple levels in the spine, consistent with diffuse idiopathic skeletal hyperostosis (DISH). IMPRESSION: 1. Chronic interstitial lung disease in a pattern of nonspecific interstitial pneumonia (NSIP). Findi ngs are improved in the lower lobes and worsened in the other lobes when compared to 04/17/2020. Reviewed, dictated and finalized at location A. IMPRESSION: 1. Chronic interstitial lung disease in a pattern of nonspecific interstitial p neumonia (NSIP). Findings are improved in the lower lobes and worsened in the o ther lobes when compared to 04/17/2020.
== END 2021-04-03 16:10 | disposition home or self-care (01) ==
LOC: ANHIMG 16:12
PROVIDERS: PCP Family Medicine; Visit Provider Physician Assistant
DX: R09.02 Hypoxemia (principal); Z86.16 Personal history of COVID-19; R06.00 Dyspnea, unspecified; J84.9 Interstitial pulmonary disease, unspecified
CPT/HCPCS: 71250

== ENCOUNTER 2021-04-28 12:33 | Outpatient (CLI) | payer MEDICARE, SELFPAY ==
--- NOTE | ~2021-04-28 | MM_ITS ---
EXAMINATION: MM screening [facility] BI w mehnaz HISTORY: Screening mammogram, history of left breast cancer TECHNIQUE: Craniocaudal and mediolateral oblique 3-D tomosynthesis images were obtained and synthetic 2-D images were generated. CAD analysis was submitted and interpreted. COMPARISON: 04/22/2019, 04/04/2018, 01/07/2017 BREAST PARENCHYMAL COMPOSITION: The breasts are almost entirely fatty. FINDINGS: There are stable lumpectomy changes in the upper outer quadrant of the left breast. There i s no evidence of suspicious mass, calcification, or architectural distortion to suggest malignancy in either breast. There has been no suspicious interval change. IMPRESSION: 1. No mammographic evidence of malignancy. 2. Recommend routine screening mammography in one year. BI-RADS Category 2: Benign finding(s). Reviewed, dictated and finalized at location A.
--- NOTE | ~2021-04-28 | DEXA_ITS ---
Bone Density Report Name: Jessika Falk Age: 70 Sex: Female Ethnicity: White Date of : 1950 Indication: postmenopausal; parental hip fracture; height loss; prior fracture; cancer; Referring Provider: Imani Dey Study: Bone densitometry was performed. Exam Date: April 28, 2021 Accession number: [id number] Bone Density: Region BMD T-score Z-score Classification AP Spine (L1-L4) 0.986 -0.6 1.7 Normal Femoral Neck (Left) 0.745 -0.9 1.0 Normal Total Hip (Left) 1.013 0.6 2.2 Normal Total Hip Bilateral Avg 0.998 0.5 2.1 Normal Femoral Neck (Right) 0.695 -1.4 0.6 Osteopenia Total Hip (Right) 0.981 0.3 2.0 Normal World Health Organization criteria for BMD impression classify patients as: Normal (T-score at or above -1.0), Osteopenia (T-score between -1.0 and -2.5), or Osteoporosis (T-score at or below -2.5). 10-year Fracture Risk(1): Major Osteoporotic Fracture 21% Hip Fracture 6.1% Reported Risk Factors: [place] (), Neck BMD=0.695, BMI=44.2, previous fracture, parental fracture (1) FRAX(R) Version 3.08. Fracture probability calculated for an untreated patient. Fracture probability may be lower if the patient has received treatment. Previous Exams: Region Exam Age BMD T-score BMD Change BMD Change Date g/cm2 vs Baseline vs Previous AP Spine(L1-L4) 04/28/2021 70 0.986 -0.6 0.022(2.3%) 0.022(2.3%) 01/07/2017 66 0.964 -0.8 Total Hip(Left) 04/28/2021 70 1.013 0.6 -0.018(-1.7%) -0.018(-1.7%) 01/07/2017 66 1.030 0.7 Total Hip(Right) 04/28/2021 70 0.981 0.3 0.023(2.4%) 0.023(2.4%) 01/07/2017 66 0.957 0.1 *Denotes significance at 95% confidence level, LSC for AP Spine = 0.022 g/cm2, LSC for Total Hip = 0.027 g/cm2 Clinical Information Provided by Patient: Has had a low trauma fracture Parent has had a hip fracture Has used the following medications: Vitamin D Has the following medical conditions: Cancer Patient maximum height was 68 Menopause Age: 53 No regular weight bearing exercise Drinks caffeinated beverages Onset of menses at age 12 Number of children 1 Impression: The patient has low bone mass, based on the Right Femoral Neck T-score. The patient has an estimated ten-year risk of hip fracture of 6.1% and an estimated ten-year risk of major fracture of 21%, based on the WHO FRAX algorithm. The patient has risk factors, including: parental hip fracture, previous fractu
== END 2021-04-28 12:34 | disposition home or self-care (01) ==
LOC: ANHIMG 12:36
PROVIDERS: PCP Family Medicine; Visit Provider Physician Assistant
DX: Z12.31 Encounter for screening mammogram for malignant neoplasm of breast (principal); Z78.0 Asymptomatic menopausal state; M85.851 Other specified disorders of bone density and structure, right thigh
CPT/HCPCS: 77063; 77067; 77080

== ENCOUNTER 2021-05-31 10:14 | Outpatient (CLI) | payer MEDICARE, SELFPAY ==
[2021-05-31 11:20] LABS: Albumin Level 4.1 g/dL (3.5-5.1); Anion Gap 8 mmol/L (8-16); Blood Urea Nitrogen 36 mg/dL (7-17); Calcium 9.7 mg/dL (8.4-10.2); Carbon Dioxide 31 mmol/L (22-30); Chloride 101 mmol/L (98-107); Estimated Glomerular Filt Rate 19; Glucose 168 mg/dL (65-110); Phosphorus 3.7 mg/dL (2.5-4.5); Potassium 4.8 mmol/L (3.4-5.0); Sodium 140 mmol/L (137-145)
[2021-05-31 11:22] LABS: Creatinine Urine 99.9 mg/dL
[2021-05-31 11:42] LABS: Total Protein Urine Random > 200 mg/dL
== END 2021-05-31 10:15 | disposition home or self-care (01) ==
PROVIDERS: PCP Family Medicine; Visit Provider Internal Medicine Nephrology
DX: I12.9 Hypertensive chronic kidney disease with stage 1 through stage 4 chronic kidney disease, or unspecified chronic kidney disease (principal); N18.4 Chronic kidney disease, stage 4 (severe); E11.29 Type 2 diabetes mellitus with other diabetic kidney complication; R80.8 Other proteinuria
CPT/HCPCS: 36415; 80069; 82570; 84156

== ENCOUNTER 2021-07-12 11:01 | Outpatient (RCR) | payer MEDICARE, SELFPAY ==
--- NOTE | 2021-07-12 14:03 | OTOPEVAL ---
Thank you for referring Jessika Falk to [facility].? The patient is scheduled to be seen for therapy? ____x/week for ___ weeks. Please review, sign, date and return this plan of care ROSY. I agree with and certify that the following plan of care is medically necessary. Referring Physician Date Admitting Provider: Attending Provider: Syd Barajas MD Referring Provider: *OT Outpatient Evaluation Start: 07/12/21 07:40 Freq: Status: Active Protocol: Document 07/12/21 10:44 [facility] (Rec: 07/12/21 11:43 [id number]) Therapy Assessment Status Assessment Status Assessment Status Evaluation Outpatient Past Medical History Neurological History Hx Migraine Yes Cardiovascular History Hx Myocardial Infarction Yes: April of 2014 Respiratory History Hx Respiratory Disorders No Significant History Gastrointestinal History Hx Gastrointestinal Disorders No Significant History Genitourinary History Hx Urinary Tract Infection Yes Musculoskeletal History Hx Back Injury Yes Hx Back Pain Yes Hematological History Hx Hematological Disorders No Significant History Endocrine History Hx Diabetes Yes HEENT History Hx Cataracts Yes Hx Sinus Problems Yes Integumentary History Hx Skin Disorders No Significant History Reproductive History Hx Reproductive Disorders No Significant History Psychosocial History Hx Psychiatric Disorders No Significant History Pain History History of Any Previous or Ongoing No Significant History Instance of Pain Anesthesia History Hx Post-Op Nausea/Vomiting Yes Other History Hx Cancer Yes Evaluation Information Problem Diagnosis decreased ROM in R middle finger Onset 06/28/21 Cause trigger finger release Subjective Information Patient reports that she had Query Text:As Reported By Patient/ trigger finger release surgery Family a couple weeks ago and is having trouble bending her R middle finger. She states that it is better than prior to surgery but continues to be stiff and difficult to move. Patient reports that she has a difficult time holding onto railing when going up/down stairs. Patient also reports that she has difficulty with cutting things (ie:food) and will
--- NOTE | 2021-07-17 14:25 | PCOTNOTE ---
On 07/17/21, the student, [Iza Rand ], provided care and completed [facility] documentation on this patient. I have reviewed the student's documentation and agree with the findings. MS
--- NOTE | 2021-08-07 12:04 | OTOPEVAL ---
Thank you for referring Jessika Falk to [facility].? The patient is scheduled to be seen for therapy? ____x/week for ___ weeks. Please review, sign, date and return this plan of care ROSY. I agree with and certify that the following plan of care is medically necessary. Referring Physician Date Admitting Provider: Attending Provider: Syd Barajas MD Referring Provider: *OT Outpatient Evaluation Start: 07/12/21 07:40 Freq: Status: Active Protocol: Document 08/07/21 11:01 [facility] (Rec: 08/07/21 12:03 [facility] [id number]) Therapy Assessment Status Assessment Status Assessment Status Discharge Outpatient Past Medical History Neurological History Hx Migraine Yes Cardiovascular History Hx Myocardial Infarction Yes: April of 2014 Respiratory History Hx Respiratory Disorders No Significant History Gastrointestinal History Hx Gastrointestinal Disorders No Significant History Genitourinary History Hx Urinary Tract Infection Yes Musculoskeletal History Hx Back Injury Yes Hx Back Pain Yes Hematological History Hx Hematological Disorders No Significant History Endocrine History Hx Diabetes Yes HEENT History Hx Cataracts Yes Hx Sinus Problems Yes Integumentary History Hx Skin Disorders No Significant History Reproductive History Hx Reproductive Disorders No Significant History Psychosocial History Hx Psychiatric Disorders No Significant History Pain History History of Any Previous or Ongoing No Significant History Instance of Pain Anesthesia History Hx Post-Op Nausea/Vomiting Yes Other History Hx Cancer Yes Evaluation Information Problem Subjective Information Patient reports that she feels Query Text:As Reported By Patient/ her R hand/finger is doing Family well overall. She does mention occasional stiffness. No concerns are reported. Pain Assessment Timing of Pain Assessment Timing of Pain Assessment Re-assessment Self Report Self Report Pain Level 0 Pain Score Pain Score 0: Self Report Additional Pain Score Comments patient reports that her L hand starting snapping again. Upper Extremity Range of Motion Finger Range of Motion Right Middle Finger MCP Joint Flexion - Active 65 Middle Finger PIP Joint Flexion - Active 90 Middle Finger DIP Joint Flexion - Active 70 Hand Infection Control Rn/Pinch Strength Assessment Hand Right Infection Control Rn Strength (lbs) 35 Extremity Circumference Assessment Circumference Assessment Circumference Comments PIP of R middle finger: 7.0 cm General Exercise General Exercises Side
== END 2021-08-07 14:48 | disposition home or self-care (01) ==
LOC: CHSOT 11:01
PROVIDERS: Visit Provider Plastic Surgery
DX: M25.641 Stiffness of right hand, not elsewhere classified (principal)
CPT/HCPCS: 97110; 97140; 97165

== ENCOUNTER 2021-11-01 09:47 | Outpatient (CLI) | payer MEDICARE, SELFPAY ==
[2021-11-01 10:44] LABS: Albumin Level 4.2 g/dL (3.5-5.1); Anion Gap 14 mmol/L (8-16); Blood Urea Nitrogen 40 mg/dL (7-17); Calcium 9.4 mg/dL (8.4-10.2); Carbon Dioxide 24 mmol/L (22-30); Chloride 104 mmol/L (98-107); Estimated Glomerular Filt Rate 20; Glucose 135 mg/dL (65-110); Phosphorus 3.9 mg/dL (2.5-4.5); Potassium 4.7 mmol/L (3.4-5.0); Sodium 142 mmol/L (137-145)
[2021-11-01 10:55] LABS: Parathyroid Intact 281.3 pg/mL (7.5-53.5)
[2021-11-01 11:07] LABS: Vitamin D 25 Hydroxy 42.3 ng/mL
[2021-11-01 13:19] LABS: Total Protein Urine Random 184 mg/dL; Ur Ttl Prot Creatinine Ratio 2.02 mg/mg (0-0.20)
== END 2021-11-01 09:48 | disposition home or self-care (01) ==
PROVIDERS: PCP Family Medicine; Visit Provider Internal Medicine Nephrology
DX: N18.4 Chronic kidney disease, stage 4 (severe) (principal); E11.29 Type 2 diabetes mellitus with other diabetic kidney complication; I12.9 Hypertensive chronic kidney disease with stage 1 through stage 4 chronic kidney disease, or unspecified chronic kidney disease; R80.8 Other proteinuria
CPT/HCPCS: 36415; 80069; 82306; 82570; 83970; 84156

== ENCOUNTER 2022-03-06 12:39 | Outpatient (CLI) | payer MEDICARE, SELFPAY ==
[2022-03-06 13:27] LABS: Albumin Level 3.7 g/dL (3.5-5.1); Anion Gap 9 mmol/L (8-16); Blood Urea Nitrogen 31 mg/dL (7-17); Calcium 9.1 mg/dL (8.4-10.2); Carbon Dioxide 21 mmol/L (22-30); Chloride 111 mmol/L (98-107); Estimated Glomerular Filt Rate 24; Glucose 139 mg/dL (65-110); Potassium 4.7 mmol/L (3.4-5.0); Sodium 141 mmol/L (137-145)
[2022-03-06 13:39] LABS: Parathyroid Intact 119.7 pg/mL (7.5-53.5)
[2022-03-06 14:12] LABS: Creatinine Urine 120.6 mg/dL
[2022-03-06 14:58] LABS: Total Protein Urine Random 460 mg/dL; Ur Ttl Prot Creatinine Ratio 3.81 mg/mg (0-0.20)
== END 2022-03-06 12:40 | disposition home or self-care (01) ==
LOC: ANHLAB 12:42
PROVIDERS: PCP Family Medicine; Visit Provider Internal Medicine Nephrology
DX: I12.9 Hypertensive chronic kidney disease with stage 1 through stage 4 chronic kidney disease, or unspecified chronic kidney disease (principal); E11.29 Type 2 diabetes mellitus with other diabetic kidney complication; E21.1 Secondary hyperparathyroidism, not elsewhere classified
CPT/HCPCS: 36415; 80069; 82570; 83970; 84156

== ENCOUNTER 2022-03-09 13:01 | Outpatient (CLI) | payer MEDICARE, SELFPAY ==
--- NOTE | ~2022-03-09 | US_ITS ---
US retroperitoneal comp 03/09/2022 16:47 Procedure: Realtime transabdominal ultrasound of the kidneys and bladder. Indication: History of kidney stones Comparison: Ultrasound dated 10/18/2020 Findings: There is increased renal cortical echotexture bilaterally with cortical thinning. There are bilateral renal cysts, largest in the right kidney measuring 4 cm. The right kidney measures 8 cm an d left kidney measures 11 cm. Bladder within normal limits. Impression: 1: Renal cortical thinning with increased cortical echotexture, consistent with chronic renal disease . Bilateral renal cysts, largest measuring 4 cm in the right kidney. Reviewed, dictated and finalized at location A. Impression: 1: Renal cortical thinning with increased cortical echotexture, consistent with chronic renal disease. Bilateral renal cysts, largest measuring 4 cm in the ri ght kidney.
--- NOTE | ~2022-03-09 | XR_ITS ---
EXAMINATION: XR abdomen/kub 1V DATE: 03/09/2022 13:24 INDICATION: Renal stones TECHNIQUE: A supine view of the abdomen on 2 radiographs was obtained. COMPARISON: 07/04/2018 FINDINGS: 1.8 x 0.8 cm stone at the lower pole of the right kidney. Smaller 8 by 2 to 3 mm stone also at the lo wer pole. No evident left-sided urolithiasis. Round calcification projecting over the right iliac cre st corresponding to the heterotopic ossicle in the anterior right lower quadrant on prior CT. Normal bowel gas pattern. Lung bases are clear. Mild lumbar dextrocurvature with mild spondylosis. IMPRESSION: 1. Nephrolithiasis the lower pole of the right kidney the larger measuring 1.8 x 0.8 cm. Reviewed, dictated and finalized at location B.
== END 2022-03-09 13:02 | disposition home or self-care (01) ==
PROVIDERS: PCP Family Medicine; Visit Provider Nurse Practitioner Adult Health
DX: N20.0 Calculus of kidney (principal); N28.1 Cyst of kidney, acquired; M47.816 Spondylosis without myelopathy or radiculopathy, lumbar region
CPT/HCPCS: 74018; 76770

== ENCOUNTER 2022-04-10 01:12 | Day surgery (SDC) | payer MEDICARE, SELFPAY ==
[2022-04-09 11:21] VITALS: BMI 43.9
[2022-04-10] VITALS (10 sets, daily range): BP systolic 120–154; BP diastolic 64–88; PULSE 72–80; RESP 16–20; TEMP 36.8–37; O2SAT 92–94; BMI 43.9
[2022-04-10] MEDS: SODIUM CHLORIDE 0.9% IV 500 ML 100 ML IV CONT (07:50)
[2022-04-10 08:02] LABS: Basophils Absolute Auto 0.1 K/mm3 (0.0-0.1); Eosinophils Absolute Auto 0.2 K/mm3 (0-0.3); Eosinophils Percent Auto 2.3 % (0-4.4); Hematocrit 43.3 % (37.0-47.0); Hemoglobin 13.8 g/dL (12.0-15.0); Immature Granulocyte Absolute 0.05 K/mm3 (0.00-0.031); Immature Granulocyte Percent A 0.5 % (0-0.5); Lymphocytes Absolute Auto 1.64 K/mm3 (0.9-3.2); Lymphocytes Percent Auto 17.9 % (18.3-44.2); Mean Corpuscular HGB Conc 31.9 g/dl (32-36); Mean Corpuscular Hemoglobin 28.2 pg (26-34); Mean Corpuscular Volume 88.5 fl (80-100); Mean Platelet Volume 11.5 fl (7.4-10.4); Monocytes Absolute Auto 0.6 K/mm3 (0.1-0.6); Monocytes Percent Auto 6.2 % (2.6-8.5); Neutrophils Absolute Auto 6.6 K/mm3 (1.3-6.7); Neutrophils Percent Auto 72.1 % (45.5-73.1); Platelet Count Result 185 k/mm3 (150-375); Red Blood Count 4.89 M/mm3 (4.2-5.4); Red Cell Distribution Width 15.2 % (11.5-14.5); White Blood Count 9.1 K/mm3 (4.5-10.0)
[2022-04-10 08:11] LABS: Anion Gap 6 mmol/L (8-16); Blood Urea Nitrogen 36 mg/dL (7-17); Carbon Dioxide 26 mmol/L (22-30); Chloride 107 mmol/L (98-107); Estimated CRCL calculation 28 ml/min; Estimated Glomerular Filt Rate 22; Glucose 112 mg/dL (65-110); Potassium 4.8 mmol/L (3.4-5.0); Sodium 139 mmol/L (137-145)
--- NOTE | 2022-04-10 08:19 | SUR.PREOP ---
Dr. Ceron notified by Charito Singh RN regarding Creatinine of 2.2.
[2022-04-10 08:20] LABS: Prothrombin Time 13.1 Seconds (11.1-14.7)
--- NOTE | 2022-04-10 08:22 | SUR.PREOP ---
Dr. Ceron returned orders regarding elevated Creatinine of 2.2. He would like a 250 cc NS bolus which was started at 0823.
--- NOTE | 2022-04-10 08:26 | WPDMODSED ---
Moderate Sedation Note-Pt Data Patient Data Allergies Allergy/AdvReac Type Severity Reaction Status Date / Time hydrocodone Allergy Severe rash Verified 04/10/22 07:30 peach Allergy Severe Anaphylactic Verified 04/10/22 07:30 Shock adhesive tape Allergy Unknown rash Verified 04/10/22 07:30 cefdinir Allergy Unknown rash Verified 04/10/22 07:30 prochlorperazine Allergy Unknown Verified 04/10/22 07:30 adhesive AdvReac Intermediate TAPE= RASH Verified 04/10/22 07:30 DYE USED FOR CLOTHING Allergy Unknown SWELLING, Uncoded 04/10/22 07:30 INFECTION FROM DYE Home Medications Medication Instructions Recorded Confirmed Type pantoprazole 40 mg tablet,delayed 40 mg PO HS 01/07/20 04/09/22 History release metoprolol tartrate 25 mg tablet 25 mg PO BID #180 tabs 06/10/20 04/10/22 Rx atorvastatin 80 mg tablet 80 mg PO HS 08/24/20 04/09/22 History icosapent ethyl 1 gram capsule 2 g PO BID 10/18/20 04/10/22 History (Vascepa) aspirin 81 mg chewable tablet 81 mg PO HS 02/15/21 04/09/22 History cholecalciferol (vitamin D3) 50 50 mcg PO HS 02/15/21 04/09/22 History mcg (2,000 unit) capsule insulin regular hum U-500 conc 500 See Rx Instructions subcut DAILY 03/14/21 04/09/22 Rx unit/mL(3 mL) subcut pen (Humulin #45 mL R U-500 (Conc) Insulin Kwikpen) blood sugar diagnostic (OneTouch #400 ea 09/11/21 04/09/22 Rx Verio test strips) pen needles 31 G X 5/16 Tech Lite #300 ea 03/21/22 04/09/22 Rx nifedipine 30 mg tablet,extended 30 mg PO HS 04/09/22 04/09/22 History release potassium citrate 10 mEq (1,080 20 meq PO TID 04/09/22 04/10/22 History mg) tablet,extended release Current Medications: Active Medications Sodium Chloride (Normal Saline Iv) 500 mls @ 100 mls/hr IV CONT .Q5H MO Sedation/Anesthesia: No previous sedation/anesthesia problems (including family history). [facility] Past Medical History Medical History Acid reflux Arthritis Breast cancer left CAD (coronary artery disease) Cholelithiasis Chronic renal failure, stage 4 (severe) COPD (chronic obstructive pulmonary disease) The patient told me that she did have a PFT in [place] however if she saw the invoice clerk here who stated he did not see any signs and symptoms of COPD and that the patient refused to have a PFT or obstructive sleep studies performed. Diabetes Heart disease History of breast cancer Lumpectomy and chemotherapy Hx antineoplastic chemotherapy Hypertension Kidney disease Kidney stone Morbid (severe) obesity due to excess calories Past heart attack Personal history of radiation exposure Type 2 diabetes mellitus with diabetic chronic kidney disease Surgical History Surgical History H/O bilateral cataract extraction H/O heart artery stent H/O lumpectomy On the left History of extraction of renal calculus [place] teeth extracted Family History Family History Mother Family history of diabetes mellitus in first degree relative Family history of thyroid disease Thyroid disease Hypertension Cancer CHF (congestive heart failure), NYHA class I Diabetes mellitus Family history of cardiovascular disease Family history of congestive heart failure Family history of hearing loss Family history of heart disease in male family member before age 55 Heart disease Father Cancer CHF (congestive heart failure), NYHA class I Family history of arthritis Family history of cardiovascular disease Family history of congestive heart failure Family history of hearing loss Family history of heart disease in male family member before age 55 Heart disease Family history of obesity Sibling CHF (congestive heart failure), NYHA class I Other Family history of malignant neoplasm Social History Social History (Reviewed 10/16/21 @ 13:10 by
--- NOTE | 2022-04-10 08:27 | WPDHPUPDATE1 ---
History and Physical Update Update Date/Time: 04/10/22 08:27 History and Physical has been reviewed, including an updated exam of the patient. There are NO changes in the patient's condition. Risks, benefits, and alternatives have been discussed and questions answered. Patient agrees to proceed with procedure.
--- NOTE | 2022-04-10 08:55 | SUR.PREOP ---
DR. DEL RIO TO BEDSIDE TO SEE PT. NOTIFIED OF ELEVATED CREATININE AND HX OF NIMA. SPOKE TO PT. AT BEDSIDE. IVF BOLUS HAS INFUSED ORDERED, 250ML NS. PT. AGREEABLE TO PROCEDURE.
--- NOTE | 2022-04-10 10:18 | WPDCARDPROC ---
Cardiac Cath Procedure Note Date of procedure:: 04/10/22 Performing physician:: Logan Ceron MD Procedure Procedure note:: CARDIAC CATHETERIZATION AND PERCUTANEOUS CORONARY INTERVENTION REPORT DATE OF PROCEDURE: 04/10/2022 INDICATION FOR PROCEDURE: chest pain, abnormal MPI; known CAD BRIEF CLINICAL HISTORY: 71-year-old female with CAD, history of inferior ST-elevation MD, status post PCI/stenting of mid RCA at outside hospital in April 2004, intervention report not available; hypertension associated with diabetes, dyslipidemia, morbid obesity, NIMA. Patient was referred by Dr. Rollins for coronary angiogram in the setting of chest discomfort and abnormal MPI. Patient's MPI from 03/28/2022 reportedly showed LVEF 57%, mid -basal anterior, anteroseptal ischemia . Benefits and risks of the procedure were discussed with the patient and her son in depth, and informed consent was obtained prior to the procedure. Risks of the procedure include but are not limited to vascular complications including groin hematoma, retroperitoneal bleed, vessel perforation; periprocedural MD, cardiac arrhythmias, stroke, contrast induced nephropathy, and . Patient has CKD, and was prehydrated with normal saline. She was cautioned that she will be at relatively high risk for contrast induced nephropathy. Patient was willing to proceed. After discussing all the benefits, risks and alternatives, patient was willing to proceed with the procedure. PROCEDURES PERFORMED: 1. Left heart catheterization- Selective left and right coronary angiogram; LV pressure measurement, hemodynamic assessment 2. Percutaneous coronary intervention- intravascular ultrasound of proximal RCA 3. Deployment of Mynx vascular closure device 4. Moderate sedation-CPT code 74400 MODERATE SEDATION: Midazolam 1 mg; fentanyl 25 mcg. Start time 0930 , Stop time 1005 ; Total rioy-ah-mdxn time 35 minutes; Praneeth Mckeon RN was trained observer for moderate sedation. ACCESS SITE: Right common femoral artery PROCEDURE NOTE: After obtaining informed consent, patient was brought to catheterization lab and prepped and draped in a usual sterile manner. After local anesthesia with lidocaine, right common femoral artery access was taken with micropuncture needle followed by insertion of a 5 [place]an sheath. Selective left and right coronary angiogram was performed using 5 [place] JL4 and JR4 catheters respectively. Orthogonal views were taken. Next, a 5 [place] pigtail catheter was advanced in the LV cavity and was flushed with normal saline. LV pressure measurement was performed. left ventriculogram was not performed due to patient's renal insufficiency. The gradient across the aortic valve was measured on the pullback of the catheter. Mynx vascular closure device was deployed with good hemostasis. Patient tolerated procedure well without any immediate procedure related complications. FINDINGS: LEFT MAIN CORONARY: A large caliber, long vessel, no significant focal stenosis. The vessel bifurcates into LAD and left circumflex branches. LEFT ANTERIOR DESCENDING ARTERY: The LAD is a medium caliber vessel with calcific diffuse disease in the proximal segment and mid segment. The vessel tapers distally and reaches LV apex. The diagonal branch is a medium caliber vessel with minor irregularities. LEFT CIRCUMFLEX ARTERY: A medium to large caliber vessel, mild about 30% plaque is seen in the proximal segment. The vessel gives rise to small to medium caliber OM1 branch and large caliber OM2 branch without significant focal stenosis. RIGHT CORONARY ARTERY: A large caliber, dominant vessel. There is densely calcific subtotal occlusion in the lower part of the proximal segment, and another densely calcific high-grade stenosis in the lower end of the previously placed mid RCA stent. The mid RCA stent is patent with mild diffuse InStent restenosis. PDA and PLV branches are medium caliber vessel withou
[2022-04-10] MEDS: SODIUM CHLORIDE 0.9% IV 1,000 ML 125 ML IV CONT (10:45)
== END 2022-04-10 14:56 | disposition home or self-care (01) ==
PROVIDERS: PCP Family Medicine; Visit Provider Internal Medicine Cardiovascular Disease
PROC: 4A023N7 Measurement of Cardiac Sampling and Pressure, Left Heart, Percutaneous Approach (ICD-10-PCS; CPT 93452; principal; 2022-04-10 08:30)
DX: I25.10 Atherosclerotic heart disease of native coronary artery without angina pectoris (principal); T82.855A Stenosis of coronary artery stent, initial encounter; R94.39 Abnormal result of other cardiovascular function study; R07.9 Chest pain, unspecified; Z95.5 Presence of coronary angioplasty implant and graft; I12.9 Hypertensive chronic kidney disease with stage 1 through stage 4 chronic kidney disease, or unspecified chronic kidney disease; E11.22 Type 2 diabetes mellitus with diabetic chronic kidney disease; N18.4 Chronic kidney disease, stage 4 (severe); I25.2 Old myocardial infarction; E78.5 Hyperlipidemia, unspecified; G47.33 Obstructive sleep apnea (adult) (pediatric); J44.9 Chronic obstructive pulmonary disease, unspecified; E66.01 Morbid (severe) obesity due to excess calories; Z68.41 Body mass index [BMI] 40.0-44.9, adult; Y83.8 Other surgical procedures as the cause of abnormal reaction of the patient, or of later complication, without mention of misadventure at the time of the procedure; Z79.4 Long term (current) use of insulin; Z85.3 Personal history of malignant neoplasm of breast; Z92.21 Personal history of antineoplastic chemotherapy; Z87.891 Personal history of nicotine dependence
CPT/HCPCS: 36415; 80048; 85025; 85610; 92978; 93458; C1753; C1760; C1769; C1887; C1894; G0269; J0583; J1644; J2250; J3010; J7040

== ENCOUNTER 2022-04-17 07:51 | Emergency (ER) | payer MEDICARE, SELFPAY ==
[2022-04-17 08:00] VITALS: BP 159/82; PULSE 74; RESP 20; TEMP 36.6; O2SAT 95
--- NOTE | 2022-04-17 08:18 | ED.GENADULT ---
HPI - General Adult General Chief complaint: Unspecified Stated complaint: bleeding post c cath 04/10 Time Seen by Provider: 04/17/22 08:10 History of Present Illness HPI narrative: 71-year-old female presenting after she noticed blood dripping from her right groin, she was worried because she had a recent cath done through her right femoral and though they did use an easy seal to stop the bleeding, she was worried that this had opened up and was bleeding again. Denies any pain, bruising that she knew of, her son did put a rag in place and had her come in. She denies any lightheadedness, difficulty breathing, chest pain. Related Data Home Medications Medication Instructions Recorded Confirmed pantoprazole 40 mg tablet,delayed 40 mg PO HS 01/07/20 04/09/22 release atorvastatin 80 mg tablet 80 mg PO HS 08/24/20 04/09/22 icosapent ethyl 1 gram capsule 2 g PO BID 10/18/20 04/10/22 (Vascepa) aspirin 81 mg chewable tablet 81 mg PO HS 02/15/21 04/09/22 cholecalciferol (vitamin D3) 50 50 mcg PO HS 02/15/21 04/09/22 mcg (2,000 unit) capsule nifedipine 30 mg tablet,extended 30 mg PO HS 04/09/22 04/09/22 release potassium citrate 10 mEq (1,080 20 meq PO TID 04/09/22 04/10/22 mg) tablet,extended release Allergies Allergy/AdvReac Type Severity Reaction Status Date / Time hydrocodone Allergy Severe rash Verified 04/10/22 07:30 peach Allergy Severe Anaphylactic Verified 04/10/22 07:30 Shock adhesive tape Allergy Unknown rash Verified 04/10/22 07:30 cefdinir Allergy Unknown rash Verified 04/10/22 07:30 prochlorperazine Allergy Unknown Verified 04/10/22 07:30 adhesive AdvReac Intermediate TAPE= RASH Verified 04/10/22 07:30 DYE USED FOR CLOTHING Allergy Unknown SWELLING, Uncoded 04/10/22 07:30 INFECTION FROM DYE Review of Systems Review of Systems: CONST: No malaise HEENT: No sore throat C/V: No chest pain RESP: No cough GI: No abdominal pain : No dysuria. M/S: No joint pain. SKIN: Bleeding from right groin NEURO: [No headache or focal numbness or weakness] PSYCH: [No depression] [facility] Past Medical History Medical History Acid reflux Arthritis Breast cancer left CAD (coronary artery disease) Cholelithiasis Chronic renal failure, stage 4 (severe) COPD (chronic obstructive pulmonary disease) The patient told me that she did have a PFT in [place] however if she saw the sanitarian aide here who stated he did not see any signs and symptoms of COPD and that the patient refused to have a PFT or obstructive sleep studies performed. Diabetes Heart disease History of breast cancer Lumpectomy and chemotherapy Hx antineoplastic chemotherapy Hypertension Kidney disease Kidney stone Morbid (severe) obesity due to excess calories Past heart attack Personal history of radiation exposure Type 2 diabetes mellitus with diabetic chronic kidney disease Surgical History Surgical History H/O bilateral cataract extraction H/O heart artery stent H/O lumpectomy On the left History of extraction of renal calculus [place] teeth extracted Family History Family History Mother Family history of diabetes mellitus in first degree relative Cancer CHF (congestive heart failure), NYHA class I Diabetes mellitus Family history of cardiovascular disease Family history of congestive heart failure Family history of hearing loss Family history of heart disease in male family member before age 55 Heart disease Family history of thyroid disease Thyroid disease Hypertension Father Cancer CHF (congestive heart failure), NYHA class I Family history of arthritis Family history of cardiovascular disease Family history of congestive heart failure Family history of hearing loss Family history of heart disease in male family member before age 55 Heart disease
[2022-04-17 08:34] VITALS: BP 154/80; PULSE 72; RESP 16; O2SAT 99
--- NOTE | 2022-04-17 08:42 | PC.NURSE ---
placed antibiotic ointment and gauze to abrasion.
== END 2022-04-17 08:36 | disposition home or self-care (01) ==
PROVIDERS: Emergency Provider Emergency Medicine; PCP Family Medicine
DX: L98.8 Other specified disorders of the skin and subcutaneous tissue (principal); E11.22 Type 2 diabetes mellitus with diabetic chronic kidney disease; I12.9 Hypertensive chronic kidney disease with stage 1 through stage 4 chronic kidney disease, or unspecified chronic kidney disease; N18.4 Chronic kidney disease, stage 4 (severe); J44.9 Chronic obstructive pulmonary disease, unspecified; E66.01 Morbid (severe) obesity due to excess calories; Z68.41 Body mass index [BMI] 40.0-44.9, adult; I25.2 Old myocardial infarction; Z98.42 Cataract extraction status, left eye; Z98.41 Cataract extraction status, right eye; Z85.3 Personal history of malignant neoplasm of breast; Z92.21 Personal history of antineoplastic chemotherapy; Z87.442 Personal history of urinary calculi; Z95.5 Presence of coronary angioplasty implant and graft
CPT/HCPCS: 99282

== ENCOUNTER 2022-04-24 10:26 | Outpatient (CLI) | payer MEDICARE, SELFPAY ==
[2022-04-24 10:46] LABS: Basophils Absolute Auto 0.1 K/mm3 (0.0-0.1); Basophils Percent Auto 1.1 % (0.2-1.2); Eosinophils Absolute Auto 0.2 K/mm3 (0-0.3); Eosinophils Percent Auto 1.8 % (0-4.4); Hemoglobin 13.7 g/dL (12.0-15.0); Immature Granulocyte Absolute 0.11 K/mm3 (0.00-0.031); Immature Granulocyte Percent A 1.1 % (0-0.5); Lymphocytes Absolute Auto 1.97 K/mm3 (0.9-3.2); Lymphocytes Percent Auto 18.9 % (18.3-44.2); Mean Corpuscular HGB Conc 31.1 g/dl (32-36); Mean Corpuscular Hemoglobin 28.3 pg (26-34); Mean Corpuscular Volume 90.9 fl (80-100); Monocytes Absolute Auto 0.6 K/mm3 (0.1-0.6); Monocytes Percent Auto 6.1 % (2.6-8.5); Neutrophils Absolute Auto 7.4 K/mm3 (1.3-6.7); Platelet Count Result 213 k/mm3 (150-375); Red Blood Count 4.84 M/mm3 (4.2-5.4); White Blood Count 10.4 K/mm3 (4.5-10.0)
[2022-04-24 10:56] LABS: Alanine Aminotransferase 25 U/L (6-35); Albumin Level 4.3 g/dL (3.5-5.1); Alkaline Phosphatase 88 U/L (38-126); Anion Gap 8 mmol/L (8-16); Aspartate Amino Transferase 25 U/L (14-36); Bilirubin,Total 0.7 mg/dL (0.2-1.3); Blood Urea Nitrogen 37 mg/dL (7-17); Calcium 9.3 mg/dL (8.4-10.2); Carbon Dioxide 27 mmol/L (22-30); Chloride 106 mmol/L (98-107); Estimated Glomerular Filt Rate 20; Glucose 152 mg/dL (65-110); Potassium 4.6 mmol/L (3.4-5.0); Sodium 141 mmol/L (137-145)
[2022-04-24 10:57] LABS: Prothrombin Time 13.2 Seconds (11.1-14.7)
== END 2022-04-24 10:27 | disposition home or self-care (01) ==
LOC: ANHLAB 10:31
PROVIDERS: PCP Family Medicine; Visit Provider Internal Medicine Cardiovascular Disease
DX: I25.119 Atherosclerotic heart disease of native coronary artery with unspecified angina pectoris (principal); I25.118 Atherosclerotic heart disease of native coronary artery with other forms of angina pectoris
CPT/HCPCS: 36415; 80053; 85025; 85610

== ENCOUNTER 2022-05-03 12:42 | Outpatient (CLI) | payer MEDICARE, SELFPAY ==
[2022-05-03 13:32] LABS: Basophils Absolute Auto 0.1 K/mm3 (0.0-0.1); Basophils Percent Auto 0.7 % (0.2-1.2); Eosinophils Absolute Auto 0.2 K/mm3 (0-0.3); Eosinophils Percent Auto 1.8 % (0-4.4); Hematocrit 34.8 % (37.0-47.0); Hemoglobin 11.1 g/dL (12.0-15.0); Immature Granulocyte Absolute 0.12 K/mm3 (0.00-0.031); Immature Granulocyte Percent A 1.1 % (0-0.5); Lymphocytes Absolute Auto 1.57 K/mm3 (0.9-3.2); Lymphocytes Percent Auto 14.6 % (18.3-44.2); Mean Corpuscular HGB Conc 31.9 g/dl (32-36); Mean Corpuscular Hemoglobin 29.1 pg (26-34); Mean Corpuscular Volume 91.3 fl (80-100); Mean Platelet Volume 12.1 fl (7.4-10.4); Monocytes Absolute Auto 0.6 K/mm3 (0.1-0.6); Monocytes Percent Auto 5.6 % (2.6-8.5); Neutrophils Absolute Auto 8.2 K/mm3 (1.3-6.7); Neutrophils Percent Auto 76.2 % (45.5-73.1); Platelet Count Result 212 k/mm3 (150-375); Red Blood Count 3.81 M/mm3 (4.2-5.4); Red Cell Distribution Width 15.7 % (11.5-14.5); White Blood Count 10.8 K/mm3 (4.5-10.0)
== END 2022-05-03 12:43 | disposition home or self-care (01) ==
LOC: ANHLAB 12:47
PROVIDERS: PCP Family Medicine; Visit Provider Internal Medicine Cardiovascular Disease
DX: I25.118 Atherosclerotic heart disease of native coronary artery with other forms of angina pectoris (principal)
CPT/HCPCS: 36415; 85025

== ENCOUNTER 2022-05-21 10:36 | Outpatient (CLI) | payer MEDICARE, SELFPAY ==
[2022-05-21 11:13] LABS: Basophils Absolute Auto 0.1 K/mm3 (0.0-0.1); Basophils Percent Auto 0.8 % (0.2-1.2); Eosinophils Absolute Auto 0.2 K/mm3 (0-0.3); Eosinophils Percent Auto 1.3 % (0-4.4); Hemoglobin 12.1 g/dL (12.0-15.0); Immature Granulocyte Absolute 0.12 K/mm3 (0.00-0.031); Immature Granulocyte Percent A 1.1 % (0-0.5); Lymphocytes Absolute Auto 1.51 K/mm3 (0.9-3.2); Lymphocytes Percent Auto 13.3 % (18.3-44.2); Mean Corpuscular HGB Conc 31.8 g/dl (32-36); Mean Corpuscular Hemoglobin 28.4 pg (26-34); Mean Corpuscular Volume 89.2 fl (80-100); Mean Platelet Volume 11.7 fl (7.4-10.4); Monocytes Absolute Auto 0.7 K/mm3 (0.1-0.6); Monocytes Percent Auto 6.2 % (2.6-8.5); Neutrophils Absolute Auto 8.8 K/mm3 (1.3-6.7); Neutrophils Percent Auto 77.3 % (45.5-73.1); Platelet Count Result 229 k/mm3 (150-375); Red Blood Count 4.26 M/mm3 (4.2-5.4); Red Cell Distribution Width 15.5 % (11.5-14.5); White Blood Count 11.4 K/mm3 (4.5-10.0)
== END 2022-05-21 10:37 | disposition home or self-care (01) ==
PROVIDERS: PCP Family Medicine; Visit Provider Internal Medicine Cardiovascular Disease
DX: D64.9 Anemia, unspecified (principal)
CPT/HCPCS: 36415; 85025

== ENCOUNTER 2022-07-05 12:17 | Outpatient (CLI) | payer MEDICARE, SELFPAY ==
[2022-07-05 12:43] LABS: Basophils Absolute Auto 0.1 K/mm3 (0.0-0.1); Basophils Percent Auto 0.7 % (0.2-1.2); Eosinophils Absolute Auto 0.3 K/mm3 (0-0.3); Eosinophils Percent Auto 2.5 % (0-4.4); Hemoglobin 9.4 g/dL (12.0-15.0); Immature Granulocyte Absolute 0.09 K/mm3 (0.00-0.031); Immature Granulocyte Percent A 0.8 % (0-0.5); Lymphocytes Absolute Auto 1.69 K/mm3 (0.9-3.2); Lymphocytes Percent Auto 15.4 % (18.3-44.2); Mean Corpuscular HGB Conc 30.3 g/dl (32-36); Mean Corpuscular Hemoglobin 26.7 pg (26-34); Mean Corpuscular Volume 88.1 fl (80-100); Mean Platelet Volume 11.4 fl (7.4-10.4); Monocytes Absolute Auto 0.7 K/mm3 (0.1-0.6); Monocytes Percent Auto 6.2 % (2.6-8.5); Neutrophils Absolute Auto 8.2 K/mm3 (1.3-6.7); Neutrophils Percent Auto 74.4 % (45.5-73.1); Platelet Count Result 298 k/mm3 (150-375); Red Blood Count 3.52 M/mm3 (4.2-5.4); Red Cell Distribution Width 15.5 % (11.5-14.5)
[2022-07-05 12:55] LABS: Alanine Aminotransferase 25 U/L (6-35); Albumin Level 4.1 g/dL (3.5-5.1); Alkaline Phosphatase 87 U/L (38-126); Anion Gap 12 mmol/L (8-16); Aspartate Amino Transferase 25 U/L (14-36); Bilirubin,Total 0.5 mg/dL (0.2-1.3); Blood Urea Nitrogen 38 mg/dL (7-17); Calcium 9.2 mg/dL (8.4-10.2); Carbon Dioxide 20 mmol/L (22-30); Chloride 107 mmol/L (98-107); Estimated Glomerular Filt Rate 19; Glucose 226 mg/dL (65-110); Potassium 4.8 mmol/L (3.4-5.0); Sodium 139 mmol/L (137-145)
[2022-07-05 13:01] LABS: Hemoglobin A1C 6.3 % (<5.7)
[2022-07-05 15:54] LABS: Creatinine Urine 131.7 mg/dL
[2022-07-05 21:58] LABS: Microalbumin Urine Random > 1140.0 mg/L (0-16.7)
== END 2022-07-05 12:18 | disposition home or self-care (01) ==
PROVIDERS: PCP Family Medicine; Visit Provider Family Medicine
DX: E11.9 Type 2 diabetes mellitus without complications (principal); I10 Essential (primary) hypertension
CPT/HCPCS: 36415; 80053; 82043; 83036; 85025

== ENCOUNTER 2022-07-11 11:49 | Outpatient (CLI) | payer MEDICARE, SELFPAY ==
--- NOTE | ~2022-07-11 | XR_ITS ---
EXAMINATION: XR chest 2V 07/11/2022 12:07 INDICATION: Dyspnea with exertion PROCEDURE: 2 view chest COMPARISON: Comparison to multiple prior studies sequentially, with oldest reviewed study dated 12/2020. FINDINGS: The lungs are clear. The cardiomediastinal silhouette is within normal limits. There are no pleural effusions. There is no pneumothorax suspected. IMPRESSION: 1: NO ACUTE CARDIOPULMONARY DISEASE. Reviewed, dictated and finalized at location B.
== END 2022-07-11 11:50 | disposition home or self-care (01) ==
PROVIDERS: PCP Family Medicine; Visit Provider Internal Medicine Cardiovascular Disease
DX: R06.00 Dyspnea, unspecified (principal)
CPT/HCPCS: 71046

== ENCOUNTER 2022-08-21 15:13 | Outpatient (CLI) | payer MEDICARE, SELFPAY ==
--- NOTE | ~2022-08-21 | MM_ITS ---
EXAMINATION: MM screening darin BI w mehnaz HISTORY: Screening mammogram TECHNIQUE: Craniocaudal and mediolateral oblique 3-D tomosynthesis images were obtained and synthetic 2-D images were generated. CAD analysis was submitted and interpreted. COMPARISON: 04/28/2021, 04/22/2019, 04/04/2018 bilateral screening mammogram examinations BREAST PARENCHYMAL COMPOSITION: There are scattered areas of fibroglandular density. FINDINGS: There is considerable volume loss of the left breast and prominent spiculated scarring and overlying retraction in the upper outer quadrant, consistent with partial mastectomy and radiotherapy for left breast cancer. There is no evidence of interval suspicious mass, calcification, or architectural distortion to sugg est malignancy in either breast. There has been no suspicious interval change. IMPRESSION: 1. Status post left partial mastectomy for breast cancer. No mammographic evidence of malignancy. 2. Recommend routine screening mammography in one year. BI-RADS Category 2: Benign finding(s). Reviewed, dictated and finalized at location A. [employer] OF PUBLIC SAFETY IMPRESSION: 1. Status post left partial mastectomy for breast cancer. No mammographic evide nce of malignancy. 2. Recommend routine screening mammography in one year. BI-RADS Category 2: Benign finding(s).
== END 2022-08-21 15:14 | disposition home or self-care (01) ==
PROVIDERS: PCP Family Medicine; Visit Provider Family Medicine
DX: Z12.31 Encounter for screening mammogram for malignant neoplasm of breast (principal)
CPT/HCPCS: 77063; 77067

== ENCOUNTER 2022-09-26 11:00 | Outpatient (RCR) | payer MEDICARE, SELFPAY | END 2022-09-29 23:59 | disposition home or self-care (01) | PROVIDERS: PCP Family Medicine; Visit Provider Internal Medicine Cardiovascular Disease | DX: Z98.61 Coronary angioplasty status (principal) | CPT/HCPCS: 93798 ==

== ENCOUNTER 2022-10-01 10:15 | Outpatient (RCR) | payer MEDICARE, SELFPAY | END 2022-10-02 13:29 | disposition home or self-care (01) | PROVIDERS: PCP Family Medicine; Visit Provider Internal Medicine Cardiovascular Disease | DX: Z95.5 Presence of coronary angioplasty implant and graft (principal) | CPT/HCPCS: 93798 ==

== ENCOUNTER 2022-11-11 21:19 | Emergency (ER) | payer MEDICARE, SELFPAY ==
[2022-11-11 21:20] VITALS: BP 131/68; PULSE 110; RESP 20; TEMP 36.7; O2SAT 97
--- NOTE | 2022-11-11 22:10 | ED.GENADULT ---
HPI - General Adult General Chief complaint: Epistaxis <James Candelaria DO - Last Filed: 12/02/22 09:18> Stated complaint: amb - nosebleed <James Candelaria DO - Last Filed: 12/02/22 09:18> Time Seen by Provider: 11/11/22 23:17 <James Candelaria DO - Last Filed: 12/02/22 09:18> History of Present Illness HPI narrative: Jesika is a 72F with a PMH of morbid obesity, CAD, CKD IV, diabetic peripheral neuropathy, CAD, COPD, HTN and HLD that presented to the ED via ems with epistaxis from her right nostril that started several hours ago. She has had 20 or so of these in the last 6 months since being placed on Brilinta after getting a stent. Despite pressure it continues to bleeds. She is getting tired and lightheaded so she called EMS. <James Candelaria DO - Last Filed: 12/02/22 09:18> Related Data Home medications: Home Medications Medication Instructions Recorded Confirmed pantoprazole 40 mg tablet,delayed 40 mg PO HS 01/07/20 11/12/22 release atorvastatin 80 mg tablet 80 mg PO HS 08/24/20 11/12/22 icosapent ethyl 1 gram capsule 2 g PO BID 10/18/20 11/12/22 (Vascepa) cholecalciferol (vitamin D3) 50 50 mcg PO HS 02/15/21 11/12/22 mcg (2,000 unit) capsule potassium citrate 10 mEq (1,080 20 meq PO TID 04/09/22 11/12/22 mg) tablet,extended release <James Candelaria DO - Last Filed: 12/02/22 09:18> Allergies/adverse reactions: Allergies Allergy/AdvReac Type Severity Reaction Status Date / Time hydrocodone Allergy Severe rash Verified 07/05/22 10:59 peach Allergy Severe Anaphylactic Verified 07/05/22 10:59 Shock adhesive tape Allergy Unknown rash Verified 07/05/22 10:59 cefdinir Allergy Unknown rash Verified 07/05/22 10:59 prochlorperazine Allergy Unknown Verified 07/05/22 10:59 adhesive AdvReac Intermediate TAPE= RASH Verified 07/05/22 10:59 DYE USED FOR CLOTHING Allergy Unknown SWELLING, Uncoded 07/05/22 10:59 INFECTION FROM DYE <James Candelaria DO - Last Filed: 12/02/22 09:18> Review of Systems Review of Systems: All systems reviewed & are unremarkable except as noted in HPI and below <James Candelaria DO - Last Filed: 12/02/22 09:18> [facility]LY [facility] Past Medical History Medical History: Medical History Arthritis Cancer of left breast Status post lumpectomy and chemoradiation. Cholelithiasis Chronic kidney disease, stage 4 (severe) Chronic obstructive pulmonary disease Per patient report she had PFTs done in [place] however if she saw the spring coiler hand here who stated he did not see any signs and symptoms of COPD and that the patient refused to have a PFT or obstructive sleep studies performed. Coronary artery disease Gastroesophageal reflux disease Hypertension Insulin dependent type 2 diabetes mellitus Kidney stone Morbid (severe) obesity due to excess calories Type 2 diabetes mellitus with diabetic chronic kidney disease <James Candelaria DO - Last Filed: 12/02/22 09:18> Surgical History Surgical History: Surgical History History of bilateral cataract extraction History of extraction of renal calculus History of heart artery stent History of lumpectomy of left breast History of wisdom tooth extraction <James Candelaria DO - Last Filed: 12/02/22 09:18> Family History Family History: Family History Mother Family history of diabetes mellitus in first degree relative Cancer CHF (congestive heart failure), NYHA class I Diabetes mellitus Family history of cardiovascular disease Family history of congestive heart failure Family history of hearing loss Family history of heart disease in male family member before age 55 Heart disease Family history of thyroid disease Thyroid disease Hypertension Father Cancer CHF (congestive heart failure), NYHA cla
[2022-11-11 22:24] LABS: Basophils Absolute Auto 0.07 K/mm3 (0.00-0.10); Basophils Percent Auto 0.5 % (0.0-1.0); Eosinophils Absolute Auto 0.16 K/mm3 (0.02-0.50); Eosinophils Percent Auto 1.3 % (1.0-6.0); Immature Granulocyte Percent A 0.8 % (0.0-0.0); Lymphocytes Absolute Auto 1.73 K/mm3 (1.10-4.50); Lymphocytes Percent Auto 13.6 % (18.0-42.0); Mean Corpuscular HGB Conc 28.1 g/dL (32.0-36.0); Mean Corpuscular Volume 67.7 fL (78.0-102.0); Mean Platelet Volume 10.6 fl (9.2-11.8); Monocytes Absolute Auto 0.48 K/mm3 (0.10-0.90); Monocytes Percent Auto 3.8 % (2.0-11.0); Neutrophils Absolute Auto 10.2 K/mm3 (1.7-7.2); Platelet Count Result 317 K/mm3 (150-420); Red Cell Distribution Width 19.7 % (11.6-14.4); White Blood Count 12.7 K/mm3 (4.8-10.8)
[2022-11-11 22:33] LABS: Prothrombin Time 11.3 Seconds (9.50-12.10)
[2022-11-11 22:42] LABS: Alanine Aminotransferase 21 U/L (14-59); Albumin Level 3.2 g/dL (3.4-5.0); Alkaline Phosphatase 100 U/L (46-116); Anion Gap 14 mmol/L (8-16); Aspartate Amino Transferase 11 U/L (15-37); Bilirubin,Total 0.5 mg/dL (0.00-1.00); Blood Urea Nitrogen 35 mg/dL (7-18); Calcium 9.1 mg/dL (8.5-10.1); Carbon Dioxide 24 mmol/L (21-32); Chloride 100 mmol/L (98-108); Estimated CRCL calculation 18 ml/min; Estimated Glomerular Filt Rate 14; Glucose 283 mg/dL (70-99); Osmolality Calculated 304 mOsm/kg (285-295); Potassium 4.4 mmol/L (3.5-5.1); Sodium 138 mmol/L (136-145); Total Protein 7.5 g/dL (6.4-8.2)
[2022-11-11 23:00] VITALS: BP 107/50; PULSE 78; RESP 20; TEMP 36.6; O2SAT 95
--- NOTE | 2022-11-11 23:10 | PC.NURSE ---
Pt assisted to chair, states bed is too uncomfortable. She Bleeding from Rt naris has stopped and nasal epistat remains in place. Pt is A&O x3 at this time and answers all questions appropriately. She reports not being on her insulin for over 2 weeks due to her FMD not having Rx sent to right place and she reports her BS being at over 200 for some time and not feeling well before the nose bleeds started. Pt is poor historian and reports she has a kidney disease hx and has nultiple specilaists at [place] Dr Candelaria in to speak c pt about her lab values and need for transfer.
[2022-11-11 23:11] LABS: Hemoglobin 5.9 g/dL (11.7-13.8)
[2022-11-11 23:30] VITALS: PULSE 79
[2022-11-11 23:47] VITALS: BP 134/46; PULSE 80; RESP 14; TEMP 36.8; O2SAT 100
[2022-11-11 23:53] LABS: Occult Blood Positive (Negative)
[2022-11-12] VITALS (32 sets, daily range): BP systolic 110–150; BP diastolic 39–90; PULSE 75–89; RESP 12–24; TEMP 36.4–36.7; O2SAT 95–100
--- NOTE | 2022-11-12 00:32 | PC.NURSE ---
Dr [place] and this RN explained POC and transfer to [facility] in AM. Consent signed for blood transfusion and paperwork signed for transfer. Pt resting c pvc monitor in place, pt given ice chips, VSS. Awaiting first Unit of blood.
[2022-11-12] MEDS: LACTATED RINGERS 1,000 ML 75 ML IV CONT (00:38)
[2022-11-12] MEDS: SODIUM CHLORIDE 0.9% IV 250 ML 30 ML IV CONT (01:09)
--- NOTE | 2022-11-12 01:52 | PC.NURSE ---
Pt resting c eyes closed, blood transfusing as per order, VSS. Monitor continues to show SR. Call wood at pt side.
--- NOTE | 2022-11-12 02:13 | PC.NURSE ---
Pt c/o feeling SOB and wanting to sit up straighter in bed. Assisted pt to sitting position, she states the clot in back of her throat makes her feel SOB. VSS, noted slight tachypneic at this time, Spo2 99% on RA. Blood continues to infuse
--- NOTE | 2022-11-12 02:49 | PC.NURSE ---
Pt calling, wanting to sit side of bed, c/o her legs falling asleep. Pt assisted to sit bedside to dangle her feet.
--- NOTE | 2022-11-12 03:32 | PC.NURSE ---
Pt hit call light stating that she cannot get comfortable and would like to move to a chair for rest. RN assists pt into chair without incident and gets pt comfortable. Pt has call light within reach. No other requests at this time.
[2022-11-12] MEDS: PANTOPRAZOLE SODIUM IV 40 MG VIAL IV PUSH (04:23)
--- NOTE | 2022-11-12 05:58 | PC.NURSE ---
Pt sitting up in chair, 2nd Unit blood continues to transfuse. Pt has no c/o VSS, call wood at side. Monitor shows NSR.
--- NOTE | 2022-11-12 06:50 | PC.NURSE ---
Transfusion completed, labs being redrawn, will call [place] for bed assignment.
--- NOTE | 2022-11-12 06:58 | PC.NURSE ---
Call placed to [facility] for pt transfer. Pt to go to Rm 203. Pt stable, VSS.
[2022-11-12 06:59] LABS: Basophils Percent Auto 0.7 % (0.0-1.0); Eosinophils Absolute Auto 0.16 K/mm3 (0.02-0.50); Eosinophils Percent Auto 1.2 % (1.0-6.0); Hematocrit 27.4 % (35.0-42.0); Hemoglobin 8.1 g/dL (11.7-13.8); Immature Granulocyte Absolute 0.11 K/mm3 (0.00-0.00); Immature Granulocyte Percent A 0.8 % (0.0-0.0); Lymphocytes Absolute Auto 1.88 K/mm3 (1.10-4.50); Lymphocytes Percent Auto 13.6 % (18.0-42.0); Mean Corpuscular HGB Conc 29.6 g/dL (32.0-36.0); Mean Corpuscular Hemoglobin 21.8 pg (27.0-31.0); Mean Corpuscular Volume 73.7 fL (78.0-102.0); Mean Platelet Volume 10.2 fl (9.2-11.8); Monocytes Absolute Auto 0.68 K/mm3 (0.10-0.90); Monocytes Percent Auto 4.9 % (2.0-11.0); Neutrophils Absolute Auto 10.9 K/mm3 (1.7-7.2); Neutrophils Percent Auto 78.8 % (50.0-70.0); Nucleated Red Blood Cells Absolute Auto 0.02 K/mm3 (0.00-0.00); Nucleated Red Blood Cells Perc 0.1 % (0-0.0); Platelet Count Result 277 K/mm3 (150-420); Red Blood Count 3.72 M/mm3 (4.20-5.40); Red Cell Distribution Width 24.4 % (11.6-14.4); White Blood Count 13.8 K/mm3 (4.8-10.8)
[2022-11-12 07:08] LABS: Anion Gap 10 mmol/L (8-16); Blood Urea Nitrogen 38 mg/dL (7-18); Carbon Dioxide 26 mmol/L (21-32); Chloride 100 mmol/L (98-108); Estimated CRCL calculation 19 ml/min; Estimated Glomerular Filt Rate 15; Glucose 276 mg/dL (70-99); Osmolality Calculated 301 mOsm/kg (285-295); Potassium 4.4 mmol/L (3.5-5.1); Sodium 136 mmol/L (136-145)
--- NOTE | 2022-11-12 07:35 | PC.NURSE ---
Report given to [facility] at [facility] to [facility]. [facility] paged for transfer.
== END 2022-11-12 08:02 | disposition short-term general hospital (02) ==
PROVIDERS: Family Medicine; Emergency Provider Internal Medicine Critical Care Medicine; PCP Family Medicine
DX: R04.0 Epistaxis (principal); N17.9 Acute kidney failure, unspecified; D64.9 Anemia, unspecified; K92.2 Gastrointestinal hemorrhage, unspecified; I13.10 Hypertensive heart and chronic kidney disease without heart failure, with stage 1 through stage 4 chronic kidney disease, or unspecified chronic kidney disease; E11.22 Type 2 diabetes mellitus with diabetic chronic kidney disease; N18.4 Chronic kidney disease, stage 4 (severe); I25.10 Atherosclerotic heart disease of native coronary artery without angina pectoris; J44.9 Chronic obstructive pulmonary disease, unspecified; I25.2 Old myocardial infarction; Z85.3 Personal history of malignant neoplasm of breast
CPT/HCPCS: 30901; 36415; 36430; 80048; 80053; 85025; 85610; 86850; 86900; 86901; 86920; 96361; 96374; 99285; C9113; J7050; J7120; P9016

== ENCOUNTER 2022-11-12 12:23 | Observation (INO) | payer MEDICARE, SELFPAY ==
[2022-11-12] VITALS (9 sets, daily range): BP systolic 141–169; BP diastolic 57–69; PULSE 78–98; RESP 18–20; TEMP 36–36.6; O2SAT 97–100; BMI 40.8; BMI 42.0
--- NOTE | 2022-11-12 09:28 | ADMGEN ---
This patient, Jessika Falk, was direct admit from [place] to [facility] Room 203-01 . Patient/family oriented to hospital policies and general routines including ID bracelet, bed and alarms, visiting hours, pain management, procedures, bathroom and other care routines, personal items, smoking policy, room service/diet, and visiting hours. Information on how to activate the Rapid Response Team has been discussed. Patient/Family are encouraged to report perceived risks to care and to ask questions if they do not understand what they are told or what they should do.
[2022-11-12 13:55] LABS: Glucose Point of Care 233 mg/dl (65-105)
[2022-11-12 15:05] LABS: Basophils Absolute Auto 0.1 K/mm3 (0.0-0.1); Basophils Percent Auto 0.7 % (0.2-1.2); Eosinophils Absolute Auto 0.1 K/mm3 (0-0.3); Eosinophils Percent Auto 0.9 % (0-4.4); Hematocrit 28.8 % (37.0-47.0); Hemoglobin 8.5 g/dL (12.0-15.0); Immature Granulocyte Absolute 0.13 K/mm3 (0.00-0.031); Immature Granulocyte Percent A 1.1 % (0-0.5); Lymphocytes Absolute Auto 1.76 K/mm3 (0.9-3.2); Lymphocytes Percent Auto 14.4 % (18.3-44.2); Mean Corpuscular HGB Conc 29.5 g/dl (32-36); Mean Corpuscular Volume 74.4 fl (80-100); Mean Platelet Volume 10.7 fl (7.4-10.4); Monocytes Absolute Auto 0.6 K/mm3 (0.1-0.6); Monocytes Percent Auto 4.8 % (2.6-8.5); Neutrophils Absolute Auto 9.5 K/mm3 (1.3-6.7); Neutrophils Percent Auto 78.1 % (45.5-73.1); Nucleated Red Blood Cells Perc 0.2 % (0.0-0.2); Platelet Count Result 286 k/mm3 (150-375); Red Blood Count 3.87 M/mm3 (4.2-5.4); Red Cell Distribution Width 24.3 % (11.5-14.5); White Blood Count 12.2 K/mm3 (4.5-10.0)
[2022-11-12 15:13] LABS: INR 1.2; Prothrombin Time 14.6 Seconds (11.1-14.7)
[2022-11-12 15:14] LABS: Anion Gap 9 mmol/L (8-16); Blood Urea Nitrogen 34 mg/dL (7-17); Calcium 9.2 mg/dL (8.4-10.2); Carbon Dioxide 24 mmol/L (22-30); Chloride 101 mmol/L (98-107); Estimated CRCL calculation 20 ml/min; Estimated Glomerular Filt Rate 16; Glucose 210 mg/dL (65-110); Sodium 134 mmol/L (137-145)
[2022-11-12 15:28] LABS: Anisocytosis 1+ (NORMAL); Hypochromasia 1+ (NORMAL); Microcytosis 1+ (NORMAL); Ovalocytes 1+ (NORMAL); Platelet Estimate Adequate (Adequate); Schistocytes None Seen (NORMAL); Target Cells 1+ (NORMAL)
--- NOTE | 2022-11-12 17:11 | WPDCN ---
Assessment and Plan Assessment and plan (1) Acute anterior epistaxis: Code(s): R04.0 - Epistaxis Status: Acute Assessment and Plan: Nasal saline several times per day just around the rhino rocket sewed stays moist. If she bleeds would inflate with 1-2 cc of air until bleeding stops. Periodically check the oropharynx. Plan will further evaluate Saturday as I will be in the hospital all day. Will consider removal then or Saturday. HPI Data of Consult Date/Time: 11/12/22 17:11 Requesting Physician: Titi Adame MD Primary Care Provider: Lorena Anthony MD Consult Narrative Narrative: Jessika Falk is a 72 year old female With right-sided epistaxis rhino rocket placed yesterday. ENT consult for further evaluation and treatment. Review of Systems Review of Systems: All systems reviewed & are unremarkable except as noted in HPI and below PMFSH Past Medical History Medical History Acid reflux Arthritis Breast cancer left CAD (coronary artery disease) Cholelithiasis Chronic renal failure, stage 4 (severe) COPD (chronic obstructive pulmonary disease) The patient told me that she did have a PFT in [place] however if she saw the field party manager here who stated he did not see any signs and symptoms of COPD and that the patient refused to have a PFT or obstructive sleep studies performed. Diabetes Heart disease History of breast cancer Lumpectomy and chemotherapy Hx antineoplastic chemotherapy Hypertension Kidney disease Kidney stone Morbid (severe) obesity due to excess calories Past heart attack Personal history of radiation exposure Type 2 diabetes mellitus with diabetic chronic kidney disease Surgical History Surgical History H/O bilateral cataract extraction H/O heart artery stent H/O lumpectomy On the left History of extraction of renal calculus Windfall teeth extracted Family History Family History Mother Family history of diabetes mellitus in first degree relative Cancer CHF (congestive heart failure), NYHA class I Diabetes mellitus Family history of cardiovascular disease Family history of congestive heart failure Family history of hearing loss Family history of heart disease in male family member before age 55 Heart disease Family history of thyroid disease Thyroid disease Hypertension Father Cancer CHF (congestive heart failure), NYHA class I Family history of arthritis Family history of cardiovascular disease Family history of congestive heart failure Family history of hearing loss Family history of heart disease in male family member before age 55 Heart disease Family history of obesity Sibling CHF (congestive heart failure), NYHA class I Other Family history of malignant neoplasm Social History Social History Social History: Single. The patient only has 1 child which is her son who lives with her. He is the durable power staff attorney for healthcare the patient is a full code. The patient is a former smoker. She does not use any alcohol marijuana or illicit drugs. She desires to be a full code. She is retired. She really has an alcoholic beverage. 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 Smoking status: Never smoker Tobacco type: cigarettes Second hand tobacco smoke exposure: No Alcohol intake: never Alcohol use details: once a month Substance use: never Substance use type: does not use Lack of Transportation: No Lack of Food: Never True Current Housing: I Have Housing Concerned About Future Housing: No Difficulty Paying Gas/Electric Bills: No Difficulty Paying for Meds: No Currently Unemployed: No Education: High School Diploma/GED Difficulty w/ Childc
[2022-11-12] MEDS: POTASSIUM CITRATE 5 MEQ TAB CR 20 MEQ PO (17:50)
[2022-11-12 19:24] LABS: Hematocrit 26.8 % (37.0-47.0); Hemoglobin 7.8 g/dL (12.0-15.0)
--- NOTE | 2022-11-12 20:00 | PM.IMHP ---
H&P: HPI History of Present Illness Date/Time: 11/12/22 20:00 Chief Complaint: Nose bleed. Narrative: This is a pleasant 72-year-old female with coronary artery disease and history of stents on dual antiplatelet therapy, hypertension, chronic kidney disease, diabetes, COPD, and other comorbidities who presented to the emergency department at the [facility] last evening via EMS from home for evaluation of an nose bleed. Patient provides the following history. She has had intermittent issues with nose bleeds since she was started on Brilinta last year. Several weeks ago she had a nosebleed that lasted from ?07:00 to 19:00? and yesterday she had a similar, prolonged bleed. This time however she started to feel increasingly lightheaded and dizzy and called 911. She was tachycardic on arrival to the outside facility with stable blood pressures. Hemoglobin and hematocrit at that time were 5.9 and 21% respectively and she was transfused 2 units of packed red blood cells. Rectal exam at that time was also Hemoccult-positive and with further questioning she did pass a large, dark stool proximally 4 days ago but she has not noticed any blood in the stool since that time. Transfer was initiated to [place] for ENT and GI consultations. She has not had any further bleeding since a rhino rocket was inserted into the right naris. She has not had any stools since arrival. At the time my evaluation she has no specific complaints but she is frustrated by the fact that she continues to have bleeding issues, occasional lightheadedness and dizziness, and exertional dyspnea. She denies fever, chills, sweats, chest pain, pleuritic pain, epigastric pain, abdominal pain, bloating, belching, and GERD symptoms. Review of Systems Review of Systems: Twelve systems were reviewed and are negative except for as per HPI. [facility] Past Medical History Medical History (Updated 11/12/22 @ 23:15 by Jodi Harman PA-C) Arthritis Cancer of left breast Status post lumpectomy and chemoradiation. Cholelithiasis Chronic kidney disease, stage 4 (severe) Chronic obstructive pulmonary disease Per patient report she had PFTs done in [place] however if she saw the screen printing loader unloader here who stated he did not see any signs and symptoms of COPD and that the patient refused to have a PFT or obstructive sleep studies performed. Coronary artery disease Gastroesophageal reflux disease Hypertension Insulin dependent type 2 diabetes mellitus Kidney stone Morbid (severe) obesity due to excess calories Type 2 diabetes mellitus with diabetic chronic kidney disease Surgical History Surgical History (Updated 11/12/22 @ 23:11 by Jodi Harman PA-C) History of bilateral cataract extraction History of extraction of renal calculus History of heart artery stent History of lumpectomy of left breast History of wisdom tooth extraction Family History Family History Mother Family history of diabetes mellitus in first degree relative Cancer CHF (congestive heart failure), NYHA class I Diabetes mellitus Family history of cardiovascular disease Family history of congestive heart failure Family history of hearing loss Family history of heart disease in male family member before age 55 Heart disease Family history of thyroid disease Thyroid disease Hypertension Father Cancer CHF (congestive heart failure), NYHA class I Family history of arthritis Family history of cardiovascular disease Family history of congestive heart failure Family history of hearing loss Family history of heart disease in male family member before age 55 Heart disease Family history of obesity Sibling CHF (congestive heart failure), NYHA class I Other Family history of malignant neoplasm Social History Social History (Updated 11/12/22 @ 23:12 by Jodi Harman PA-C) Social History: 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
[2022-11-12 20:24] LABS: Glucose Point of Care 266 mg/dl (65-105)
[2022-11-12] MEDS: ATORVASTATIN 40 MG TABLET 80 MG PO (21:23)
[2022-11-12] MEDS: PANTOPRAZOLE 40 MG TABLET PO (21:23)
[2022-11-12 23:53] LABS: Hematocrit 25.9 % (37.0-47.0); Hemoglobin 7.6 g/dL (12.0-15.0)
[2022-11-13] VITALS (16 sets, daily range): BP systolic 123–161; BP diastolic 58–80; PULSE 80–96; RESP 16–20; TEMP 36.6–36.9; O2SAT 97–100
[2022-11-13 00:02] LABS: Hemoglobin A1C 5.9 % (<5.7)
[2022-11-13] MEDS: OMEGA 3 POLYUNSAT FATTY ACIDS 1 GM CAP 2 GM PO ×2 (09:39→17:30)
[2022-11-13] MEDS: POTASSIUM CITRATE 5 MEQ TAB CR 20 MEQ PO ×3 (09:39→17:30)
[2022-11-13 09:46] LABS: Glucose Point of Care 253 mg/dl (65-105)
--- NOTE | 2022-11-13 11:19 | PM.CNCAR ---
Assessment and Plan Assessment and plan (1) Microcytic anemia: Code(s): D50.9 - Iron deficiency anemia, unspecified Status: Acute (2) Heme positive stool: Code(s): R19.5 - Other fecal abnormalities Status: Acute (3) Symptomatic anemia: Code(s): D64.9 - Anemia, unspecified Status: Acute (4) Chronic obstructive pulmonary disease: Code(s): J44.9 - Chronic obstructive pulmonary disease, unspecified Status: Acute (5) Insulin dependent type 2 diabetes mellitus: Code(s): E11.9 - Type 2 diabetes mellitus without complications; Z79.4 - long-term (current) use of insulin Status: Acute (6) Coronary artery disease: Code(s): I25.10 - Atherosclerotic heart disease of [place] coronary artery without angina pectoris Status: Acute (7) Chronic kidney disease, stage 4 (severe): Code(s): N18.4 - Chronic kidney disease, stage 4 (severe) Status: Acute (8) Gastroesophageal reflux disease: Code(s): K21.9 - Gastro-esophageal reflux disease without esophagitis Status: Acute (9) Morbid obesity: Code(s): E66.01 - Morbid (severe) obesity due to excess calories Status: Acute (10) CAD S/P percutaneous coronary angioplasty: Code(s): I25.10 - Atherosclerotic heart disease of [place] coronary artery without angina pectoris; Z98.61 - Coronary angioplasty status Status: Acute (11) Diabetic peripheral neuropathy: Code(s): E11.42 - Type 2 diabetes mellitus with diabetic polyneuropathy Status: Acute Plan Patient's last PCI was on 04/27/[address] Ceron, where she underwent complex PCI with orbital atherectomy and PCI of proximal and distal RCA with placement of 2 NABEEL (4.0mm x 18mm x 2). This was done for stable anginal symptoms in the setting of abnormal stress test as an outpatient. PCI was not done in the setting of ACS. As it has been a little more than 6 months since her PCI, okay to stop her Brilinta given her significant anemia. Would continue with ASA 81mg once daily. If she continues to have significant bleeding issues while on ASA monotherapy, then at that time, can hold the ASA. We will arrange Cardiology follow-up with Dr. Rollins. History of Present Illness History of Present Illness Consult date/time: 11/13/22 11:19 Requesting physician: Jodi Harman PA-C Consult reason: Other (DAPT management) Reason For Visit: Anemia, A/C Renal Failure Narrative: We are consulted for DAPT management in this patient with acute blood loss anemia. This is one of Dr. Rollins's patient. She is a 72-year-old female with a history of CAD s/p complex RCA PCI back in 04/2022, history of prior inferior STEMI that was treated with PCI to the RCA, hypertension, diabetes, morbid obesity, NIMA, chronic kidney disease who presented to the ER with nose bleed. Patient states she was bleeding quite a bit from her right nostril. Upon ER evaluation, she was noted to be significantly anemic with Hgb of 5.9 (previously Hgb was normal). Stool was Hemoccult positive as well. She was given blood transfusions. ENT and GI have been consulted. Patient denies any chest pain. Was fully complaint with her DAPT. Patient does report being out of her insulin for about 3 weeks now. Review of Systems Review of Systems: 12-point ROS obtained. Negative, unless stated in HPI. [facility] Past Medical History Medical History Arthritis Cancer of left breast Status post lumpectomy and chemoradiation. Cholelithiasis Chronic kidney disease, stage 4 (severe) Chronic obstructive pulmonary disease Per patient report she had PFTs done in [place] however if she saw the core layer machine operator here who stated he did not see any signs and symptoms of COPD and that the patient refused to have a PFT or obstructive sleep studies performed. Coronary artery disease Gastroesophageal reflux disease Hypertension Insulin dependent type
[2022-11-13 11:39] LABS: Glucose Point of Care 250 mg/dl (65-105)
[2022-11-13 12:30] LABS: Basophils Absolute Auto 0.1 K/mm3 (0.0-0.1); Eosinophils Absolute Auto 0.2 K/mm3 (0-0.3); Eosinophils Percent Auto 1.5 % (0-4.4); Hematocrit 28.5 % (37.0-47.0); Hemoglobin 8.3 g/dL (12.0-15.0); Immature Granulocyte Absolute 0.08 K/mm3 (0.00-0.031); Immature Granulocyte Percent A 0.8 % (0-0.5); Lymphocytes Absolute Auto 1.93 K/mm3 (0.9-3.2); Lymphocytes Percent Auto 19.1 % (18.3-44.2); Mean Corpuscular HGB Conc 29.1 g/dl (32-36); Mean Corpuscular Hemoglobin 21.2 pg (26-34); Mean Corpuscular Volume 72.7 fl (80-100); Mean Platelet Volume 10.3 fl (7.4-10.4); Monocytes Absolute Auto 0.6 K/mm3 (0.1-0.6); Monocytes Percent Auto 5.5 % (2.6-8.5); Neutrophils Absolute Auto 7.3 K/mm3 (1.3-6.7); Neutrophils Percent Auto 72.1 % (45.5-73.1); Platelet Count Result 291 k/mm3 (150-375); Red Blood Count 3.92 M/mm3 (4.2-5.4); Red Cell Distribution Width 24.7 % (11.5-14.5); White Blood Count 10.1 K/mm3 (4.5-10.0)
[2022-11-13 12:46] LABS: Alanine Aminotransferase 20 U/L (6-35); Albumin Level 3.9 g/dL (3.5-5.1); Alkaline Phosphatase 85 U/L (38-126); Anion Gap 9 mmol/L (8-16); Aspartate Amino Transferase 26 U/L (14-36); Bilirubin,Total 0.8 mg/dL (0.2-1.3); Blood Urea Nitrogen 32 mg/dL (7-17); Calcium 9.3 mg/dL (8.4-10.2); Carbon Dioxide 24 mmol/L (22-30); Chloride 106 mmol/L (98-107); Estimated CRCL calculation 20 ml/min; Estimated Glomerular Filt Rate 15; Glucose 224 mg/dL (65-110); Magnesium 2.1 mg/dL (1.6-2.3); Potassium 4.7 mmol/L (3.4-5.0); Sodium 139 mmol/L (137-145)
[2022-11-13 13:27] LABS: Anisocytosis 2+ (NORMAL); Hypochromasia 1+ (NORMAL); Microcytosis 1+ (NORMAL); Platelet Estimate Adequate (Adequate); Schistocytes None Seen (NORMAL)
--- NOTE | 2022-11-13 15:57 | WPDGICN ---
Assessment and Plan Assessment and plan (1) Heme positive stool: Code(s): R19.5 - Other fecal abnormalities Status: Acute Assessment and Plan: She had a black stool last week. She has not had a bowel movement since admission, but rectal exam revealed Hemoccult-positive stool (2) Microcytic anemia: Code(s): D50.9 - Iron deficiency anemia, unspecified Status: Acute Assessment and Plan: MCV had been normal last summer when I 1st saw her but now it is low consistent with iron deficiency and/or chronic blood loss (3) Epistaxis: Code(s): R04.0 - Epistaxis Status: Acute Assessment and Plan: Although she has dealt with epistaxis for the past several months, she has severe nose bleeds Saturday and about 1 week prior to that resulting in symptomatic anemia and hemoglobin of 5.9 (4) Morbid obesity: Code(s): E66.01 - Morbid (severe) obesity due to excess calories Status: Acute (5) Coronary artery disease: Code(s): I25.10 - Atherosclerotic heart disease of [place] coronary artery without angina pectoris Status: Acute Assessment and Plan: Last summer she had restenting of coronary occlusion and was found to have subtotal stenosis in the proximal distal segments of the RCA. At that time she was placed on aspirin and Brilinta. Plan EGD will be done tomorrow now that she is temporarily off her anti-platelet therapy GI Consult Note Consult date/time: 11/13/22 15:57 HPI: Jessika Falk is a 72 year old female who was admitted late Saturday night after she had gone to the emergency room in [place] with a nose bleed. She had had cardiac catheterization and treatment of occluded stents last summer. She had atherectomy and balloon angioplasty and restenting and was placed on Brilinta and aspirin. She states that since then she has had frequent nose bleeds. She had 1 2 weeks ago the lasted all day. He finally stopped but then on Saturday she had 1 that persisted for multiple hours and became more profuse as time went not. She was starting to feel quite weak. She then called the paramedics and was taken to the hospital in [place]. There she was found to have a hemoglobin of 5.9. She was then transfused with 2 units of blood in her hemoglobin now is 8.3. Last June her hemoglobin had been 9.4. Also on arrival here her MCV was quite low at 67. I had seen her in the office last May because she had noted black stools shortly after having had her cardiac catheterization. She was referred to me by Cardiology but it was their opinion that her stents were too fresh to be able to do anything like endoscopy because she could not be taken off of those anti-platelet medication for even 1 day. We noticed then in her hemoglobin had been 13 in early April and then dropped down to 11.1. She has not had any indigestion nausea or vomiting. She denies weight loss or other gastrointestinal symptoms. She did have a black stool about 5 days ago. She has had no bowel movement since admission. She states that when she was in the emergency room she also had a blood clot that was caught in her throat but finally was able to get that up. She knows that she was swallowing some blood in the process of her nosebleed Review of Systems Review of Systems: All systems reviewed & are unremarkable except as noted in HPI and below PMFSH Past Medical History Medical History Arthritis Cancer of left breast Status post lumpectomy and chemoradiation. Cholelithiasis Chronic kidney disease, stage 4 (severe) Chronic obstructive pulmonary disease Per patient report she had PFTs done in [place] however if she saw the buzzsaw operator helper here who stated he did not see any signs and symptoms of COPD and that the patient refused to have a PFT or obstructive sleep studies performed. Coronary artery disease Gastroesophageal reflux disease Hypertension
--- NOTE | 2022-11-13 16:31 | PM.IMPN ---
Progress Note: A&P Assessment and Plan (1) Symptomatic anemia: Code(s): D64.9 - Anemia, unspecified Status: Acute (2) Acute anterior epistaxis: Code(s): R04.0 - Epistaxis Status: Inactive (3) Heme positive stool: Code(s): R19.5 - Other fecal abnormalities Status: Acute (4) Microcytic anemia: Code(s): D50.9 - Iron deficiency anemia, unspecified Status: Acute (5) Chronic kidney disease, stage 4 (severe): Code(s): N18.4 - Chronic kidney disease, stage 4 (severe) Status: Acute (6) Insulin dependent type 2 diabetes mellitus: Code(s): E11.9 - Type 2 diabetes mellitus without complications; Z79.4 - exterminator (current) use of insulin Status: Acute (7) Coronary artery disease: Code(s): I25.10 - Atherosclerotic heart disease of [place] coronary artery without angina pectoris Status: Acute (8) Gastroesophageal reflux disease: Code(s): K21.9 - Gastro-esophageal reflux disease without esophagitis Status: Acute Plan The patient presented to the emergency department at an outside facility last evening via EMS from home for evaluation of a nose bleed. Labs were personally reviewed and showed a profound microcytic anemia. She was transfused 2 units of packed red blood cells with improvement in her hemoglobin. # nose bleed on rhino rocket ENT consulted # acute blood loss anemia due to non bleed versus GI bleed. FOBT did come back positive however this could be due to her ongoing nosebleed. Transfused 2 unit of packed red blood cells. Continue to monitor H&H to keep hemoglobin at this more than 7 but due to her underlying history of coronary artery disease may be more than 8 # FOBT positive stool unsure if ongoing GI bleed as she might have swallowed some blood due to her nose bleed that has been ongoing since past 3 days. GI has been consulted. Will continue on Protonix as ordered once daily. Await GI recommendation # coronary artery disease status post stent back in April 2022. Brilinta has been stopped per Cardiology recommendation. Continue only on aspirin. This might help with the bleeding problem that she has been having # type 2 diabetes mellitus on insulin. SSI A1c controlled. # chronic kidney disease stage 3/4 with mild JOSE E continue to monitor. She sees Dr. Hdez as an outpatient basis. Baseline creatinine mid 2s. Admission creatinine was 3.2 slightly improved down to 3. May be a new baseline. Continue to monitor. No acute indication for hemodialysis # hypertension # hyperlipidemia # DVT prophylaxis SCDs # code status full code Subjective Date/time seen: 11/13/22 16:31 Interval history: Feeling well. No new complaints. No nausea vomiting. No abdominal pain. No vomiting of blood. No dark stool. FOBT positive stool. Has been having nasal bleed since past 3 days. Review of Systems Review of Systems: All systems reviewed & are unremarkable except as noted in HPI and below Exam Narrative: General: Well appearing female not in acute distress HEENT: PERRL, EOMI. Sclera anicteric. Moist mucous membranes. Oropharynx is crowded and poorly visualized. Rhino rocket in the right naris with some dried blood noted. Neck: Supple. Respiratory: Respirations are nonlabored and lungs are clear to auscultation. Cardiovascular: Regular rate and rhythm with S1-S2. Soft murmur at the upper sternal border. Gastrointestinal: Abdomen is soft, obese, nontender, and nondistended with positive bowel sounds. Skin: Warm and dry. Generalized pallor Extremities: No cyanosis, clubbing, or significant edema. Radial and pedal pulses intact. Neurological: Alert. Cranial nerves 2-12 are grossly intact. No gross focal deficits to casual conversation. Psychiatric: Pleasant and cooperative with normal mood and affect. Judgment and insight intact. Objective Data Vital Signs Vital Signs: Vital Signs - 24 hr 11/12/22 18:00 11/12/22 2
[2022-11-13 16:41] LABS: Glucose Point of Care 192 mg/dl (65-105)
--- NOTE | 2022-11-13 17:14 | WPDPROCEDUR ---
Procedures Other Procedures Procedure 1: Other Procedure: Nasal endoscopy right-sided all the consents obtained risks plane. Afrin lidocaine applied following removal rhino rocket no bleeding only scant bleeding from the vestibule anteriorly septum is clean nothing else bleeding blood confirmed on the rhino rocket that is only anterior. Small amount Nova pack placed against this soaked in. Patient tolerated the procedure well.
--- NOTE | 2022-11-13 17:17 | PM.PNGS ---
Progress Note: A&P Assessment and Plan (1) Epistaxis: Code(s): R04.0 - Epistaxis Status: Acute Assessment and Plan: Currently not bleeding small amount of at absorbable packing placed against area of recent bleed Afrin placed in this. Recommend several drops of Afrin right nasal passage have the patient wean back every 12 hours for 3 days. Follow-up with me with any recurrent episodes of epistaxis. Subjective Subjective Date/Time Seen: 11/13/22 17:17 Objective Data Vital Signs Vital Signs: Vital Signs - 24 hr 11/12/22 18:00 11/12/22 20:00 11/12/22 20:00 Temperature 36.6 C Pulse Rate 90 81 Respiratory Rate 20 Blood Pressure 141/69 H Pulse Oximetry 97 Oxygen Delivery Room Air 11/12/22 23:12 11/12/22 20:00 11/12/22 22:00 Temperature 36.4 C Pulse Rate 87 81 85 Respiratory Rate 20 Blood Pressure 147/68 H Pulse Oximetry 97 Oxygen Delivery 11/13/22 00:00 11/13/22 02:00 11/13/22 00:00 Temperature Pulse Rate 84 90 Respiratory Rate Blood Pressure Pulse Oximetry Oxygen Delivery Room Air 11/13/22 04:00 11/13/22 04:00 11/13/22 04:00 Temperature 36.6 C Pulse Rate 93 81 Respiratory Rate 20 Blood Pressure 141/69 H Pulse Oximetry 99 Oxygen Delivery Room Air 11/13/22 06:00 11/13/22 08:00 11/13/22 08:00 Temperature 36.9 C 36.9 C Pulse Rate 85 96 96 Respiratory Rate 20 20 Blood Pressure 145/69 H 145/69 H Pulse Oximetry 98 98 Oxygen Delivery 11/13/22 08:17 11/13/22 08:17 11/13/22 08:00 Temperature Pulse Rate Respiratory Rate Blood Pressure 161/70 H 123/74 Pulse Oximetry 98 Oxygen Delivery Room Air 11/13/22 08:00 11/13/22 10:00 11/13/22 11:55 Temperature 36.7 C Pulse Rate 89 83 81 Respiratory Rate 16 Blood Pressure 154/58 H Pulse Oximetry 100 Oxygen Delivery 11/13/22 12:00 11/13/22 12:00 11/13/22 14:00 Temperature Pulse Rate 81 88 Respiratory Rate Blood Pressure Pulse Oximetry 98 Oxygen Delivery Room Air 11/13/22 16:00 11/13/22 16:00 11/13/22 16:00 Temperature 36.7 C Pulse Rate 85 80 Respiratory Rate 18 Blood Pressure 134/67 Pulse Oximetry 98 100 Oxygen Delivery Room Air Intake/Output Intake/Output: Intake & Output 11/10/22 11/11/22 11/12/22 11/13/22 23:59 23:59 23:59 23:59 Intake Total 920 250 Output Total 650 Balance 920 -400 Meds/Results Medications: Active Medications Generic Name Dose Route Start Last Admin Trade Name Freq PRN Reason Stop Dose Admin Aspirin 81 mg 11/13/22 21:00 Aspirin 81 Mg Chewable Tablet PO HS MO Atorvastatin Calcium 80 mg 11/12/22 21:00 11/12/22 21:23 Atorvastatin 40 Mg Tablet PO 80 mg HS MO Administration Dextrose 12.5 gm 11/12/22 23:21 Dextrose 50% 25 Gm/50 Ml Syringe IV PUSH PRN PRN Hypoglycemia Protocol Fish Oil 2 gm 11/13/22 09:00 11/13/22 09:39 [place] 3 Polyunsat Fatty Acids 1 Gm Cap PO 2 gm BID MO Administration Glucagon 1 mg 11/12/22 23:21 Glucagon For Inj 1 Mg Vial IM PRN PRN Hypoglycemia Protocol Glucose 15 gm 11/12/22 23:21 Glucose Oral Gel 15 Gm Of Glucse In 37.5 Gm Tube PO PRN PRN Hypoglycemia Protocol Dextrose 1,000 mls @ 100 mls/hr 11/12/22 23:21 Dextrose 5% 1,000 Ml IVPB PRN PRN Hypoglycemia Protocol Insulin Aspart 2 - 5 units 11/13/22 08:00 11/13/22 16:45 Insulin Aspart (*Bkc) 100 Units/Ml SUB-Q Not Given TIDWM MO Protocol Oxymetazoline HCl 1 spray 11/13/22 17:13 Oxymetazoline Hcl 0.05% Stevie 15 Ml Btl (*Bkc) NASAL 11/16/22 17:12 Q12HR PRN epistaxis Pantoprazole Sodium 40 mg 11/12/22 21:00 11/12/22 21:23 Pantoprazole 40 Mg Tablet PO 40 mg HS MO Administration Potassium Citrate 20 meq 11/12/22 17:00 11/13/22 12:38 Potassium Citrate 5 Meq Tab Cr PO 20 meq TID MO Administration Labs La
[2022-11-13 20:31] LABS: Glucose Point of Care 293 mg/dl (65-105)
[2022-11-13] MEDS: INSULIN ASPART (*BKC) 100 UNITS/ML SUB-Q (22:05)
[2022-11-13] MEDS: ATORVASTATIN 40 MG TABLET 80 MG PO (22:08)
[2022-11-13] MEDS: ASPIRIN 81 MG CHEWABLE TABLET PO (22:08)
[2022-11-13] MEDS: PANTOPRAZOLE 40 MG TABLET PO (22:08)
[2022-11-14] VITALS (18 sets, daily range): BP systolic 99–156; BP diastolic 51–74; PULSE 80–97; RESP 18–24; TEMP 36.3–36.4; O2SAT 96–100
[2022-11-14 04:24] LABS: Basophils Absolute Auto 0.1 K/mm3 (0.0-0.1); Basophils Percent Auto 1.2 % (0.2-1.2); Eosinophils Absolute Auto 0.2 K/mm3 (0-0.3); Eosinophils Percent Auto 2.6 % (0-4.4); Hematocrit 26.8 % (37.0-47.0); Hemoglobin 7.6 g/dL (12.0-15.0); Immature Granulocyte Absolute 0.06 K/mm3 (0.00-0.031); Immature Granulocyte Percent A 0.6 % (0-0.5); Lymphocytes Absolute Auto 1.68 K/mm3 (0.9-3.2); Lymphocytes Percent Auto 18.1 % (18.3-44.2); Mean Corpuscular HGB Conc 28.4 g/dl (32-36); Mean Corpuscular Hemoglobin 21.2 pg (26-34); Mean Corpuscular Volume 74.7 fl (80-100); Mean Platelet Volume 11.1 fl (7.4-10.4); Monocytes Absolute Auto 0.8 K/mm3 (0.1-0.6); Monocytes Percent Auto 8.1 % (2.6-8.5); Neutrophils Absolute Auto 6.4 K/mm3 (1.3-6.7); Neutrophils Percent Auto 69.4 % (45.5-73.1); Platelet Count Result 262 k/mm3 (150-375); Red Blood Count 3.59 M/mm3 (4.2-5.4); Red Cell Distribution Width 24.9 % (11.5-14.5); White Blood Count 9.3 K/mm3 (4.5-10.0)
[2022-11-14 04:39] LABS: Alanine Aminotransferase 20 U/L (6-35); Albumin Level 3.9 g/dL (3.5-5.1); Alkaline Phosphatase 67 U/L (38-126); Anion Gap 8 mmol/L (8-16); Aspartate Amino Transferase 48 U/L (14-36); Bilirubin,Total 1.1 mg/dL (0.2-1.3); Blood Urea Nitrogen 31 mg/dL (7-17); Calcium 9.1 mg/dL (8.4-10.2); Carbon Dioxide 23 mmol/L (22-30); Chloride 105 mmol/L (98-107); Estimated CRCL calculation 22 ml/min; Estimated Glomerular Filt Rate 17; Glucose 189 mg/dL (65-110); Magnesium 2.2 mg/dL (1.6-2.3); Potassium 4.8 mmol/L (3.4-5.0); Sodium 136 mmol/L (137-145)
[2022-11-14 04:54] LABS: Hypochromasia 2+ (NORMAL); Platelet Estimate Adequate (Adequate)
[2022-11-14 04:55] LABS: Anisocytosis 1+ (NORMAL); Burr Cells 1+ (NORMAL); Microcytosis 1+ (NORMAL); Schistocytes Rare (NORMAL)
--- NOTE | 2022-11-14 08:24 | WPDANESEPPF ---
Anes - Initial Pre Proc Eval Procedure: Operation Date: 11/14/22 12:30 Proposed Procedures p Esophagogastroduodenoscopy - Bello Dominguez MD Date/Time: 11/14/22 08:24 Surgeon: Zia Howe MD Pre Op Diagnosis: Anemia, A/C Renal Failure Patient Data Age: 72 Gender: F Height: 1.68 m Weight: 118 kg Last Vital Signs Temp 97.3 F L 11/14/22 07:40 Pulse 87 11/14/22 07:40 Resp 18 11/14/22 07:40 BP 99/68 L 11/14/22 07:40 Pulse Ox 100 11/14/22 07:40 O2 Del Method Room Air 11/14/22 03:49 Allergies Allergy/AdvReac Type Severity Reaction Status Date / Time hydrocodone Allergy Severe rash Verified 07/05/22 10:59 peach Allergy Severe Anaphylactic Verified 07/05/22 10:59 Shock adhesive tape Allergy Unknown rash Verified 07/05/22 10:59 cefdinir Allergy Unknown rash Verified 07/05/22 10:59 prochlorperazine Allergy Unknown Verified 07/05/22 10:59 adhesive AdvReac Intermediate TAPE= RASH Verified 07/05/22 10:59 DYE USED FOR CLOTHING Allergy Unknown SWELLING, Uncoded 07/05/22 10:59 INFECTION FROM DYE Home Medications Medication Instructions Recorded Confirmed Type pantoprazole 40 mg tablet,delayed 40 mg PO HS 01/07/20 11/12/22 History release atorvastatin 80 mg tablet 80 mg PO HS 08/24/20 11/12/22 History icosapent ethyl 1 gram capsule 2 g PO BID 10/18/20 11/12/22 History (Vascepa) aspirin 81 mg chewable tablet 81 mg PO HS 02/15/21 11/12/22 History cholecalciferol (vitamin D3) 50 50 mcg PO HS 02/15/21 11/12/22 History mcg (2,000 unit) capsule blood sugar diagnostic (OneTouch #400 ea 09/11/21 11/12/22 Rx Verio test strips) potassium citrate 10 mEq (1,080 20 meq PO TID 04/09/22 11/12/22 History mg) tablet,extended release lancets (Accu-Chek Softclix #100 ea 07/05/22 11/12/22 Rx Lancets) pen needles 31 G X 5/16 Tech Lite #300 ea 07/25/22 11/12/22 Rx insulin regular hum U-500 conc 500 See Rx Instructions subcut DAILY 10/11/22 11/12/22 Rx unit/mL(3 mL) subcut pen (Humulin #45 mL R U-500 (Conc) Insulin Kwikpen) ticagrelor 90 mg tablet (Brilinta) 90 mg PO DAILY 11/11/22 11/12/22 History Laboratory Tests 11/13/22 11/13/22 11/13/22 09:42 11:29 12:21 WBC 10.1 K/mm3 H K/mm3 (4.5-10.0) RBC 3.92 M/mm3 L M/mm3 (4.2-5.4) Hgb 8.3 g/dL L g/dL (12.0-15.0) Hct 28.5 % L % (37.0-47.0) MCV 72.7 fl L fl (80-100) MCH 21.2 pg L pg (26-34) MCHC 29.1 g/dl L g/dl (32-36) RDW 24.7 % H % (11.5-14.5) Plt Count 291 k/mm3 k/mm3 (150-375) MPV 10.3 fl fl (7.4-10.4) Immature Gran % (Auto) 0.8 % H % (0-0.5) Neut % (Auto) 72.1 % % (45.5-73.1) Lymph % (Auto) 19.1 % % (18.3-44.2) [place] % (Auto) 5.5 % % (2.6-8.5) Eos % (Auto) 1.5 % % (0-4.4) Baso % (Auto) 1.0 % % (0.2-1.2) Lymph # (Auto) 1.93 K/mm3 K/mm3 (0.9-3.2) [place] # (Auto) 0.6 K/mm3 K/mm3 (0.1-0.6) Eos # (Auto) 0.2 K/mm3 K/mm3 (0-0.3) Baso # (Auto) 0.1 K/mm3 K/mm3 (0.0-0.1) Abs Immat Gran (auto) 0.08 K/mm3 H K/mm3 (0.00-0.031) Absolute Neuts (auto) 7.3 K/mm3 H K/mm3 (1.3-6.7) Absolute Nucleated RBC 0.0 K/mm3 K/mm3 (0.0-0.012) Nucleated RBC % 0.0 % % (0.0-0.2) Platelet Estimate Adequate (Adequate) Hypochromasia 1+ (NORMAL) Anisocytosis 2+ (NORMAL) Microcytosis 1+ (NORMAL) [place] Cells Schistocytes None seen (NORMAL) Sodium Potassium Chloride Carbon Dioxide Anion Gap BUN Creatinine Estim Creat Clear Calc Estimated GFR Glucose POC Capillary Glucose 253 mg/dl H mg/dl 250 mg/dl H mg/dl (65-105) (65-105) Calcium Magnesium
[2022-11-14] MEDS: LACTATED RINGERS 1,000 ML 150 ML IV CONT (08:45)
[2022-11-14 10:29] LABS: Glucose Point of Care 227 mg/dl (65-105)
--- NOTE | 2022-11-14 11:39 | PC.NURSE ---
3046 - to GI lab for EGD- returned to room @ [id number]
[2022-11-14] MEDS: OMEGA 3 POLYUNSAT FATTY ACIDS 1 GM CAP 2 GM PO ×2 (12:00→16:47)
[2022-11-14] MEDS: INSULIN ASPART (*BKC) 100 UNITS/ML SUB-Q ×2 (12:04→16:51)
[2022-11-14] MEDS: INSULIN ASPART (*BKC) 100 UNITS/ML 6 UNITS SUB-Q ×2 (12:04→16:51)
[2022-11-14] MEDS: POTASSIUM CITRATE 5 MEQ TAB CR 20 MEQ PO ×2 (12:07→16:47)
[2022-11-14 12:48] LABS: Glucose Point of Care 268 mg/dl (65-105)
[2022-11-14 14:30] LABS: Hemoglobin 8.9 g/dL (12.0-15.0)
--- NOTE | 2022-11-14 15:33 | PM.IMPN ---
Progress Note: A&P Assessment and Plan (1) Epistaxis: Code(s): R04.0 - Epistaxis Status: Acute Plan Symptomatic anemia: ?Code(s): D64.9 - Anemia, unspecified ?Status:?Acute (2) Acute anterior epistaxis: ?Code(s): R04.0 - Epistaxis ?Status:?Inactive (3) Heme positive stool: ?Code(s): R19.5 - Other fecal abnormalities ?Status:?Acute (4) Microcytic anemia: ?Code(s): D50.9 - Iron deficiency anemia, unspecified ?Status:?Acute (5) Chronic kidney disease, stage 4 (severe): ?Code(s): N18.4 - Chronic kidney disease, stage 4 (severe) ?Status:?Acute (6) Insulin dependent type 2 diabetes mellitus: ?Code(s): E11.9 - Type 2 diabetes mellitus without complications; Z79.4 - roasterman (current) use of insulin ?Status:?Acute (7) Coronary artery disease: ?Code(s): I25.10 - Atherosclerotic heart disease of [place] coronary artery without angina pectoris ?Status:?Acute (8) Gastroesophageal reflux disease: ?Code(s): K21.9 - Gastro-esophageal reflux disease without esophagitis ?Status:?Acute Assessment Patient reported chronic epistaxis, and it is likely the blood loss is from chronic nose bleed. EGD today show gastric polyps s/p polypectomy. will monitor Hb if stable will discharge tomorrow with ENT f/u. # nose bleed on rhino [facility] ENT consulted # acute blood loss anemia due to non bleed versus GI bleed.? FOBT did come back positive however this could be due to her ongoing nosebleed.? Transfused 2 unit of packed red blood cells.? Continue to monitor H&H to keep hemoglobin at this more than 7 but due to her underlying history of coronary artery disease may be more than 8 # FOBT positive stool unsure if ongoing GI bleed as she might have swallowed some blood due to her nose bleed that has been ongoing since past 3 days.? GI has been consulted.? Will continue on Protonix as ordered once daily.? Await GI recommendation # coronary artery disease status post stent back in April 2022.? Brilinta has been stopped per Cardiology recommendation.? Continue only on aspirin.? This might help with the bleeding problem that she has been having # type 2 diabetes mellitus on insulin.? SSI A1c controlled.? 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 She sees Dr. Hdez as an outpatient basis.? Baseline creatinine mid 2s.? Admission creatinine was 3.2 slightly improved down to 3.? May be a new baseline.? Continue to monitor.? No acute indication for hemodialysis # hypertension # hyperlipidemia # DVT prophylaxis SCDs # code status full code Subjective Date/time seen: 11/14/22 15:33 Review of Systems Review of Systems: All systems reviewed & are unremarkable except as noted in HPI and below Exam Narrative: General:? Well appearing female not in acute distress HEENT:??PERRL, EOMI. Sclera anicteric. Moist mucous membranes.? Oropharynx is crowded and poorly visualized. Rhino rocket in the right naris with some dried blood noted. Neck:??Supple. Respiratory:?Respirations are nonlabored and lungs are clear to auscultation. Cardiovascular:??Regular rate and rhythm with S1-S2. Soft murmur at the upper sternal border. Gastrointestinal:??Abdomen is soft, obese, nontender, and nondistended with positive bowel sounds. Skin:??Warm and dry. Generalized pallor Extremities:??No cyanosis, clubbing, or significant edema. Radial and pedal pulses intact. Neurological:??Alert.? Cranial nerves 2-12 are grossly intact. No gross focal deficits to casual conversation. Psychiatric:??Pleasant and cooperative with normal mood and affect.? Judgment and insight intact. Objective Data Vital Signs Vital Signs: Vital Signs - 24 hr 11/13/22 16:00 11/13/22 16:00 11/13/22 16:00 Temperature 98.1 F Pulse Rate 85 80 Respiratory Rate 18 Blood Pressure 134/67 Pulse Oximetry 98 100 Oxygen Delivery Room Air 11/13/22 18:00 11/13/22 20:00 11/13/22 20:11 Temperature
[2022-11-14 16:21] LABS: Glucose Point of Care 277 mg/dl (65-105)
[2022-11-14 17:04] LABS: Iron 20 ug/dL (37-170)
[2022-11-14 17:15] LABS: Percent Iron Saturation 4 % (20-50)
--- NOTE | 2022-11-14 18:16 | PM.PNGS ---
Progress Note: A&P Assessment and Plan (1) Epistaxis: Code(s): R04.0 - Epistaxis Status: Acute Assessment and Plan: Packing removed, hold afrin, only use with actively bleeding nose. Currently not bleeding. Mupirocin ointment bid in the nose, use finger, as far as it will go, thank you. Subjective Subjective Date/Time Seen: 11/14/22 18:16 Objective Data Vital Signs Vital Signs: Vital Signs - 24 hr 11/13/22 20:00 11/13/22 20:11 11/13/22 20:11 Temperature Pulse Rate 80 Respiratory Rate 20 Blood Pressure 151/80 H 129/72 135/60 Pulse Oximetry 98 Oxygen Delivery 11/13/22 20:11 11/13/22 20:11 11/13/22 20:00 Temperature 36.6 C Pulse Rate Respiratory Rate Blood Pressure 135/60 Pulse Oximetry 98 Oxygen Delivery Room Air 11/13/22 23:16 11/13/22 20:00 11/13/22 22:00 Temperature 36.6 C Pulse Rate 82 90 88 Respiratory Rate 20 Blood Pressure 143/65 H Pulse Oximetry 97 Oxygen Delivery 11/14/22 00:00 11/14/22 00:00 11/14/22 02:00 Temperature Pulse Rate 81 87 Respiratory Rate Blood Pressure Pulse Oximetry 98 Oxygen Delivery Room Air 11/14/22 03:49 11/14/22 04:00 11/14/22 04:00 Temperature 36.4 C Pulse Rate 88 82 Respiratory Rate 20 Blood Pressure 150/63 H Pulse Oximetry 98 97 Oxygen Delivery Room Air 11/14/22 05:54 11/14/22 07:40 11/14/22 08:42 Temperature 36.3 C L Pulse Rate 81 87 84 Respiratory Rate 18 24 H Blood Pressure 99/68 L 144/69 H Pulse Oximetry 100 100 Oxygen Delivery 11/14/22 08:52 11/14/22 09:02 11/14/22 09:34 Temperature 36.3 C L Pulse Rate 81 80 81 Respiratory Rate 18 19 18 Blood Pressure 152/65 H 155/66 H 143/68 H Pulse Oximetry 100 96 100 Oxygen Delivery 11/14/22 08:00 11/14/22 10:00 11/14/22 12:00 Temperature Pulse Rate 82 88 97 Respiratory Rate Blood Pressure Pulse Oximetry Oxygen Delivery 11/14/22 12:00 11/14/22 13:12 11/14/22 13:13 Temperature 36.3 C L Pulse Rate 95 Respiratory Rate 20 Blood Pressure 135/67 145/61 H 137/70 Pulse Oximetry 98 Oxygen Delivery 11/14/22 13:13 11/14/22 13:35 11/14/22 13:55 Temperature Pulse Rate Respiratory Rate Blood Pressure 103/51 L Pulse Oximetry Oxygen Delivery Room Air Room Air 11/14/22 14:00 11/14/22 16:00 11/14/22 16:00 Temperature 36.3 C L Pulse Rate 90 91 90 Respiratory Rate 18 Blood Pressure 156/65 H Pulse Oximetry 100 Oxygen Delivery Intake/Output Intake/Output: Intake & Output 11/11/22 11/12/22 11/13/22 11/14/22 23:59 23:59 23:59 23:59 Intake Total 920 490 930 Output Total 650 650 Balance 920 -160 280 Meds/Results Medications: Active Medications Generic Name Dose Route Start Last Admin Trade Name Freq PRN Reason Stop Dose Admin Aspirin 81 mg 11/13/22 21:00 11/13/22 22:08 Aspirin 81 Mg Chewable Tablet PO 81 mg HS MO Administration Atorvastatin Calcium 80 mg 11/12/22 21:00 11/13/22 22:08 Atorvastatin 40 Mg Tablet PO 80 mg HS MO Administration Dextrose 12.5 gm 11/12/22 23:21 Dextrose 50% 25 Gm/50 Ml Syringe IV PUSH PRN PRN Hypoglycemia Protocol Fish Oil 2 gm 11/13/22 09:00 11/14/22 16:47 [place] 3 Polyunsat Fatty Acids 1 Gm Cap PO 2 gm BID MO Administration Glucagon 1 mg 11/12/22 23:21 Glucagon For Inj 1 Mg Vial IM PRN PRN Hypoglycemia Protocol Glucose 15 gm 11/12/22 23:21 Glucose Oral Gel 15 Gm Of Glucse In 37.5 Gm Tube PO PRN PRN Hypoglycemia Protocol Dextrose 1,000 mls @ 100 mls/hr 11/12/22 23:21 Dextrose 5% 1,000 Ml IVPB PRN PRN Hypoglycemia Protocol Insulin Aspart 2 - 5 units 11/13/22 08:00 11/14/22 16:51 Insulin Aspart (*Bkc) 100 Units/Ml SUB-Q 3 units TIDWM MO Administration Protocol Insulin Aspart 6 units 11/14/22 08:00 11/14/22 16:51 Insulin Aspart (*Bkc) 100 Un
[2022-11-14] MEDS: IRON SUCROSE COMPLEX 200 MG in SODIUM CHLORIDE 0.9% IV 50 ML 120 MG IVPB (18:47)
[2022-11-14] MEDS: MUPIROCIN 2% OINT 22 GM TUBE 1 APPLIC EACH NARE (20:45)
[2022-11-14] MEDS: PANTOPRAZOLE 40 MG TABLET PO (20:45)
[2022-11-14] MEDS: ATORVASTATIN 40 MG TABLET 80 MG PO (20:45)
[2022-11-14] MEDS: ASPIRIN 81 MG CHEWABLE TABLET PO (20:45)
[2022-11-14 23:04] LABS: Glucose Point of Care 203 mg/dl (65-105)
[2022-11-15] VITALS (10 sets, daily range): BP systolic 127–154; BP diastolic 59–98; PULSE 73–109; RESP 16–24; TEMP 36.1–37.7; O2SAT 97–100
[2022-11-15 04:24] LABS: Basophils Absolute Auto 0.1 K/mm3 (0.0-0.1); Basophils Percent Auto 0.8 % (0.2-1.2); Eosinophils Absolute Auto 0.2 K/mm3 (0-0.3); Eosinophils Percent Auto 2.9 % (0-4.4); Hematocrit 26.9 % (37.0-47.0); Hemoglobin 7.6 g/dL (12.0-15.0); Immature Granulocyte Absolute 0.05 K/mm3 (0.00-0.031); Immature Granulocyte Percent A 0.6 % (0-0.5); Immature Platelet Fraction Pct 4.8 % (0.9-11.2); Lymphocytes Absolute Auto 1.77 K/mm3 (0.9-3.2); Mean Corpuscular HGB Conc 28.3 g/dl (32-36); Mean Corpuscular Hemoglobin 21.1 pg (26-34); Mean Corpuscular Volume 74.7 fl (80-100); Mean Platelet Volume 10.8 fl (7.4-10.4); Monocytes Absolute Auto 0.6 K/mm3 (0.1-0.6); Monocytes Percent Auto 7.6 % (2.6-8.5); Neutrophils Absolute Auto 5.6 K/mm3 (1.3-6.7); Neutrophils Percent Auto 67.1 % (45.5-73.1); Platelet Count Result 248 k/mm3 (150-375); Red Cell Distribution Width 25.4 % (11.5-14.5); White Blood Count 8.4 K/mm3 (4.5-10.0)
[2022-11-15 04:46] LABS: Alanine Aminotransferase 18 U/L (6-35); Albumin Level 3.5 g/dL (3.5-5.1); Alkaline Phosphatase 85 U/L (38-126); Anion Gap 7 mmol/L (8-16); Aspartate Amino Transferase 23 U/L (14-36); Bilirubin,Total 0.6 mg/dL (0.2-1.3); Blood Urea Nitrogen 30 mg/dL (7-17); Calcium 9.1 mg/dL (8.4-10.2); Carbon Dioxide 27 mmol/L (22-30); Chloride 107 mmol/L (98-107); Estimated CRCL calculation 20 ml/min; Estimated Glomerular Filt Rate 15; Glucose 204 mg/dL (65-110); Potassium 4.6 mmol/L (3.4-5.0); Sodium 141 mmol/L (137-145)
[2022-11-15 05:33] LABS: Anisocytosis 2+ (NORMAL); Hypochromasia 2+ (NORMAL); Large Platelets Present; Microcytosis 2+ (NORMAL); Platelet Estimate Adequate (Adequate)
[2022-11-15 05:34] LABS: Schistocytes None Seen (NORMAL); Target Cells 1+ (NORMAL)
[2022-11-15 07:55] LABS: Glucose Point of Care 249 mg/dl (65-105)
[2022-11-15] MEDS: INSULIN ASPART (*BKC) 100 UNITS/ML SUB-Q ×3 (08:14→16:47)
[2022-11-15] MEDS: INSULIN ASPART (*BKC) 100 UNITS/ML 6 UNITS SUB-Q ×3 (08:15→16:47)
[2022-11-15] MEDS: OMEGA 3 POLYUNSAT FATTY ACIDS 1 GM CAP 2 GM PO ×2 (08:16→16:48)
[2022-11-15] MEDS: POTASSIUM CITRATE 5 MEQ TAB CR 20 MEQ PO ×3 (08:16→16:48)
[2022-11-15] MEDS: MUPIROCIN 2% OINT 22 GM TUBE 1 APPLIC EACH NARE ×2 (08:17→20:20)
[2022-11-15] MEDS: IRON SUCROSE COMPLEX 200 MG in SODIUM CHLORIDE 0.9% IV 50 ML 120 MG IVPB (10:01)
--- NOTE | 2022-11-15 10:08 | WPDANESPN ---
Anes - Prog Note Post-Op Date/Time: 11/15/22 10:08 Cardiovascular status: normal Respiratory status: normal Airway patency: baseline Mental status: baseline Post-Op hydration status: normal Vital Signs: Last Vital Signs Temp 36.4 C L 11/15/22 08:00 Pulse 95 11/15/22 08:00 Resp 24 H 11/15/22 08:00 BP 136/98 H 11/15/22 08:51 Pulse Ox 98 11/15/22 08:00 O2 Del Method Room Air 11/15/22 08:00 Pain Score (VAS): 0 I/O: Intake & Output 11/14/22 11/15/22 11/15/22 23:59 07:59 15:59 Intake Total 240 480 Output Total 650 Balance -410 480 Laboratory Tests 11/15/22 03:33 11/15/22 03:33 11/14/22 11/14/22 11/14/22 09:29 11:49 14:08 WBC RBC Hgb 8.9 L Hct 31.0 L MCV MCH MCHC RDW Plt Count MPV Immature Gran % (Auto) Neut % (Auto) Lymph % (Auto) [place] % (Auto) Eos % (Auto) Baso % (Auto) Lymph # (Auto) [place] # (Auto) Eos # (Auto) Baso # (Auto) Abs Immat Gran (auto) Absolute Neuts (auto) Absolute Nucleated RBC Nucleated RBC % Platelet Estimate Large Platelets % Immature Plt Fraction Hypochromasia Anisocytosis Microcytosis Target Cells Schistocytes Sodium Potassium Chloride Carbon Dioxide Anion Gap BUN Creatinine Estim Creat Clear Calc Estimated GFR Glucose POC Capillary Glucose 227 H 268 H Calcium Iron TIBC % Saturation Total Bilirubin AST ALT Alkaline Phosphatase Total Protein Albumin 11/14/22 11/14/22 11/14/22 14:08 16:14 20:38 WBC RBC Hgb Hct MCV MCH MCHC RDW Plt Count MPV Immature Gran % (Auto) Neut % (Auto) Lymph % (Auto) [place] % (Auto) Eos % (Auto) Baso % (Auto) Lymph # (Auto) [place] # (Auto) Eos # (Auto) Baso # (Auto) Abs Immat Gran (auto) Absolute Neuts (auto) Absolute Nucleated RBC Nucleated RBC % Platelet Estimate Large Platelets % Immature Plt Fraction Hypochromasia Anisocytosis Microcytosis Target Cells Schistocytes Sodium Potassium Chloride Carbon Dioxide Anion Gap BUN Creatinine Estim Creat Clear Calc Estimated GFR Glucose POC Capillary Glucose 277 H 203 H Calcium Iron 20 L TIBC 464 H % Saturation 4 L Total Bilirubin AST ALT Alkaline Phosphatase Total Protein Albumin 11/15/22 11/15/22 11/15/22 03:33 03:33 07:42 WBC 8.4 RBC 3.60 L Hgb 7.6 L Hct 26.9 L MCV 74.7 L MCH 21.1 L MCHC 28.3 L RDW 25.4 H Plt Count 248 MPV 10.8 H Immature Gran % (Auto) 0.6 H Neut % (Auto) 67.1 Lymph % (Auto) 21.0 [place] % (Auto) 7.6 Eos % (Auto) 2.9 Baso % (Auto) 0.8 Lymph # (Auto) 1.77 [place] # (Auto) 0.6 Eos # (Auto) 0.2 Baso # (Auto) 0.1 Abs Immat Gran (auto) 0.05 H Absolute Neuts (auto) 5.6 Absolute Nucleated RBC 0.0 Nucleated RBC % 0.0 Platelet Estimate Adequate Large Platelets Present % Immature Plt Fraction 4.8 Hypochromasia 2+ Anisocytosis 2+ Microcytosis 2+ Target Cells 1+ Schistocytes None seen Sodium 141 Potassium 4.6 Chloride 107 Carbon Dioxide 27 Anion Gap 7 L BUN 30 H Creatinine 3.00 H Estim Creat Clear Calc 20 Estimated GFR 15 L Glucose 204 H POC Capillary Glucose 249 H Calcium 9.1 Iron TIBC % Saturation Total Bilirubin 0.6 AST 23 ALT 18 Alkaline Phosphatase 85 Total Protein 7.0 Albumin 3.5 Post-procedural complaints: none Patient Feedback: Patient satisfied with anesthetic care.
[2022-11-15 11:55] LABS: Glucose Point of Care 290 mg/dl (65-105)
--- NOTE | 2022-11-15 14:35 | WPDGIPROGNO ---
Progress Note: A&P Assessment and Plan (1) Heme positive stool: Code(s): R19.5 - Other fecal abnormalities Status: Acute Assessment and Plan: She had a black stool last week. She has not had a bowel movement since admission, but rectal exam revealed Hemoccult-positive stool (2) Microcytic anemia: Code(s): D50.9 - Iron deficiency anemia, unspecified Status: Acute Assessment and Plan: MCV had been normal last summer when I 1st saw her but now it is low consistent with iron deficiency and/or chronic blood loss Hemoglobin is down to 7.6 today the same as it was early yesterday after jumping up to 8. I previously discussed colonoscopy with her. She had stated that she had 1 about 4 years ago that was clear. Today she says she is fairly certain that it was done at this institution. I cannot however find any record of that. I told her that her blood counts do not come up we would need to consider colonoscopy at some point. (3) Epistaxis: Code(s): R04.0 - Epistaxis Status: Acute Assessment and Plan: Although she has dealt with epistaxis for the past several months, she has severe nose bleeds Saturday and about 1 week prior to that resulting in symptomatic anemia and hemoglobin of 5.9 No further bleeding she is happy that she will be able to stay off the anti-platelet drugs. (4) Morbid obesity: Code(s): E66.01 - Morbid (severe) obesity due to excess calories Status: Acute (5) Coronary artery disease: Code(s): I25.10 - Atherosclerotic heart disease of [place] coronary artery without angina pectoris Status: Acute Assessment and Plan: Last summer she had restenting of coronary occlusion and was found to have subtotal stenosis in the proximal distal segments of the RCA. At that time she was placed on aspirin and Brilinta. Per Cardiology, she will no longer need to take anti-platelet medications (6) Gastric polyps: Code(s): K31.7 - Polyp of stomach and duodenum Status: Acute Assessment and Plan: I discussed with her the results her endoscopy. She had several gastric polyps. I took off 2, the largest and 1 of them had any erosion at the tip. They were hyperplastic. The specimen for H pylori was negative. Plan Will follow her blood counts. Subjective Date/time seen: 11/15/22 14:35 She is comfortable today. He has had no further nosebleeds. She has not had any bowel movements. She is tolerating her diet. Denies abdominal pain or other gastrointestinal symptoms. Exam Const: General: alert and obese Nutritional Appearance: obese Orientation/consciousness: patient oriented x3 Resp: Auscultation: clear to auscultation bilaterally Cardio: Rhythm: regular rhythm GI: Inspection: obesity GI Palp: No abdominal tenderness, Yes Soft to palpation and Yes No hepatosplenomegaly present Auscultation: normal bowel sounds Skin: General skin exam: no ecchymosis, no jaundice and pallor Neuro: General: patient oriented x3 Objective Data Vital Signs Vital Signs: Vital Signs - 24 hr 11/14/22 16:00 11/14/22 16:00 11/14/22 20:00 Temperature 36.3 C L Pulse Rate 91 90 Respiratory Rate 18 Blood Pressure 156/65 H 144/57 H Pulse Oximetry 100 Oxygen Delivery 11/14/22 20:00 11/14/22 20:00 11/14/22 20:00 Temperature 36.4 C L Pulse Rate 88 Respiratory Rate 18 Blood Pressure 144/57 H 148/74 H 134/52 L Pulse Oximetry 97 Oxygen Delivery 11/14/22 20:00 11/15/22 00:00 11/14/22 20:00 Temperature 36.1 C L Pulse Rate 84 86 Respiratory Rate 18 Blood Pressure 154/68 H Pulse Oximetry 98 Oxygen Delivery Room Air 11/15/22 00:00 11/15/22 04:00 11/15/22 04:00 Temperature 36.8 C Pulse Rate 81 73 88 Respiratory Rate 16 Blood Pressure 140/78 Pulse Oximetry 98 Oxygen Delivery 11/15/22 08:00 11/15/22 08:00 11/15/22 08:51 Temperature 36.4 C L Pulse Rate 95 Respirator
[2022-11-15 16:28] LABS: Glucose Point of Care 202 mg/dl (65-105)
--- NOTE | 2022-11-15 17:24 | PM.IMPN ---
Progress Note: A&P Assessment and Plan (1) Epistaxis: Code(s): R04.0 - Epistaxis Status: Acute Plan Symptomatic anemia: ?Code(s): D64.9 - Anemia, unspecified ?Status:?Acute (2) Acute anterior epistaxis: ?Code(s): R04.0 - Epistaxis ?Status:?Inactive (3) Heme positive stool: ?Code(s): R19.5 - Other fecal abnormalities ?Status:?Acute (4) Microcytic anemia: ?Code(s): D50.9 - Iron deficiency anemia, unspecified ?Status:?Acute (5) Chronic kidney disease, stage 4 (severe): ?Code(s): N18.4 - Chronic kidney disease, stage 4 (severe) ?Status:?Acute (6) Insulin dependent type 2 diabetes mellitus: ?Code(s): E11.9 - Type 2 diabetes mellitus without complications; Z79.4 - 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 EGD today show gastric polyps s/p polypectomy. will monitor Hb if stable will discharge tomorrow with ENT f/u. # nose bleed s/p rhinorocket # acute blood loss anemia due to non bleed versus GI bleed.? FOBT did come back positive however this could be due to her ongoing nosebleed.? Transfused 2 unit of packed red blood cells.? Continue to monitor H&H to keep hemoglobin at this more than 7 but due to her underlying history of coronary artery disease may be more than 8 # FOBT positive stool unsure if ongoing GI bleed as she might have swallowed some blood due to her nose bleed that has been ongoing since past 3 days.? GI has been consulted.? Will continue on Protonix as ordered once daily.? Await GI recommendation # coronary artery disease status post stent back in April 2022.? Brilinta has been stopped per Cardiology recommendation.? Continue only on aspirin.? This might help with the bleeding problem that she has been having # type 2 diabetes mellitus on insulin.? SSI A1c controlled.? 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 She sees Dr. Hdez as an outpatient basis.? Baseline creatinine mid 2s.? Admission creatinine was 3.2 slightly improved down to 3.? May be a new baseline.? Continue to monitor.? No acute indication for hemodialysis # hypertension # hyperlipidemia # DVT prophylaxis SCDs # code status full code Subjective Date/time seen: 11/15/22 17:24 Interval history: Denies any nasal bleed overnight Review of Systems Review of Systems: All systems reviewed & are unremarkable except as noted in HPI and below Exam Narrative: General:? Well appearing female not in acute distress HEENT:??PERRL, EOMI. Sclera anicteric. Moist mucous membranes.? Oropharynx is crowded and poorly visualized. Rhino rocket in the right naris with some dried blood noted. Neck:??Supple. Respiratory:?Respirations are nonlabored and lungs are clear to auscultation. Cardiovascular:??Regular rate and rhythm with S1-S2. Soft murmur at the upper sternal border. Gastrointestinal:??Abdomen is soft, obese, nontender, and nondistended with positive bowel sounds. Skin:??Warm and dry. Generalized pallor Extremities:??No cyanosis, clubbing, or significant edema. Radial and pedal pulses intact. Neurological:??Alert.? Cranial nerves 2-12 are grossly intact. No gross focal deficits to casual conversation. Psychiatric:??Pleasant and cooperative with normal mood and affect.? Judgment and insight intact. Objective Data Vital Signs Vital Signs: Vital Signs - 24 hr 11/14/22 20:00 11/14/22 20:00 11/14/22 20:00 Temperature 97.5 F L Pulse Rate 88 Respiratory Rate 18 Blood Pressure 144/57 H 144/57 H 148/74 H Pulse Oximetry 97 Oxygen Delivery 11/14/22 20:00
--- NOTE | 2022-11-15 18:07 | PC.NURSE ---
This patient, Jessika Falk, was transferred to room 244 via bed without issue on 11/15/22 at 1800. Personal belongings sent with patient. Report given to LISSY Rousseau. Appropriate documentation sent with patient.
--- NOTE | 2022-11-15 18:10 | PC.NURSE ---
pt transferred via bed to room 244, oriented to new room and environment, reviewed plan of care with pt, she is doing well, in good spirits and resting comfortably
[2022-11-15] MEDS: PANTOPRAZOLE 40 MG TABLET PO (20:20)
[2022-11-15] MEDS: ASPIRIN 81 MG CHEWABLE TABLET PO (20:20)
[2022-11-15] MEDS: ATORVASTATIN 40 MG TABLET 80 MG PO (20:20)
[2022-11-15 22:00] LABS: Glucose Point of Care 217 mg/dl (65-105)
[2022-11-16] VITALS (8 sets, daily range): BP systolic 105–166; BP diastolic 47–66; PULSE 76–97; RESP 18–20; TEMP 36.2–37.1; O2SAT 96–100; BMI 40.6
[2022-11-16 05:11] LABS: Basophils Absolute Auto 0.1 K/mm3 (0.0-0.1); Basophils Percent Auto 1.1 % (0.2-1.2); Eosinophils Absolute Auto 0.2 K/mm3 (0-0.3); Eosinophils Percent Auto 2.7 % (0-4.4); Hemoglobin 7.8 g/dL (12.0-15.0); Immature Granulocyte Absolute 0.15 K/mm3 (0.00-0.031); Immature Granulocyte Percent A 1.7 % (0-0.5); Lymphocytes Absolute Auto 1.57 K/mm3 (0.9-3.2); Lymphocytes Percent Auto 17.5 % (18.3-44.2); Mean Corpuscular HGB Conc 27.9 g/dl (32-36); Mean Corpuscular Hemoglobin 21.1 pg (26-34); Mean Corpuscular Volume 75.7 fl (80-100); Mean Platelet Volume 11.2 fl (7.4-10.4); Monocytes Absolute Auto 0.6 K/mm3 (0.1-0.6); Monocytes Percent Auto 7.1 % (2.6-8.5); Neutrophils Absolute Auto 6.3 K/mm3 (1.3-6.7); Neutrophils Percent Auto 69.9 % (45.5-73.1); Platelet Count Result 262 k/mm3 (150-375); Red Cell Distribution Width 25.8 % (11.5-14.5)
[2022-11-16 05:25] LABS: Chloride 105 mmol/L (98-107)
[2022-11-16 05:28] LABS: Alanine Aminotransferase 18 U/L (6-35); Albumin Level 3.8 g/dL (3.5-5.1); Alkaline Phosphatase 79 U/L (38-126); Anion Gap 5 mmol/L (8-16); Aspartate Amino Transferase 22 U/L (14-36); Bilirubin,Total 0.7 mg/dL (0.2-1.3); Blood Urea Nitrogen 29 mg/dL (7-17); Calcium 9.2 mg/dL (8.4-10.2); Carbon Dioxide 25 mmol/L (22-30); Estimated CRCL calculation 22 ml/min; Estimated Glomerular Filt Rate 17; Glucose 189 mg/dL (65-110); Potassium 4.3 mmol/L (3.4-5.0); Sodium 135 mmol/L (137-145)
[2022-11-16 06:46] LABS: Anisocytosis 2+ (NORMAL); Macrocytosis 1+ (NORMAL); Microcytosis 1+ (NORMAL); Platelet Estimate Adequate (Adequate)
[2022-11-16 06:47] LABS: Hypochromasia 2+ (NORMAL); Ovalocytes 1+ (NORMAL); Poikilocytosis 1+ (NORMAL); Schistocytes None Seen (NORMAL); Target Cells 1+ (NORMAL)
[2022-11-16 08:33] LABS: Glucose Point of Care 199 mg/dl (65-105)
[2022-11-16] MEDS: INSULIN ASPART (*BKC) 100 UNITS/ML 6 UNITS SUB-Q ×2 (08:39→12:05)
[2022-11-16] MEDS: MUPIROCIN 2% OINT 22 GM TUBE 1 APPLIC EACH NARE (08:41)
[2022-11-16] MEDS: POTASSIUM CITRATE 5 MEQ TAB CR 20 MEQ PO ×2 (08:43→12:36)
[2022-11-16] MEDS: OMEGA 3 POLYUNSAT FATTY ACIDS 1 GM CAP 2 GM PO (08:43)
[2022-11-16] MEDS: IRON SUCROSE COMPLEX 200 MG in SODIUM CHLORIDE 0.9% IV 50 ML 120 MG IVPB (09:34)
--- NOTE | 2022-11-16 10:47 | PM.DS ---
DS: Admitting Diagnosis Discharge Date 11/16/22 Admitting Diagnosis Epistaxis with anemia DS: Discharge Diagnosis Discharge Diagnosis (1) Epistaxis: Code(s): R04.0 - Epistaxis Status: Acute (2) Anemia: Code(s): D64.9 - Anemia, unspecified Status: Acute Plan Symptomatic anemia: ?Code(s): D64.9 - Anemia, unspecified ?Status:?Acute (2) Acute anterior epistaxis: ?Code(s): R04.0 - Epistaxis ?Status:?Inactive (3) Heme positive stool: ?Code(s): R19.5 - Other fecal abnormalities ?Status:?Acute (4) Microcytic anemia: ?Code(s): D50.9 - Iron deficiency anemia, unspecified ?Status:?Acute (5) Chronic kidney disease, stage 4 (severe): ?Code(s): N18.4 - Chronic kidney disease, stage 4 (severe) ?Status:?Acute (6) Insulin dependent type 2 diabetes mellitus: ?Code(s): E11.9 - Type 2 diabetes mellitus without complications; Z79.4 - [facility] (current) use of insulin ?Status:?Acute (7) Coronary artery disease: ?Code(s): I25.10 - Atherosclerotic heart disease of [place] coronary artery without angina pectoris ?Status:?Acute (8) Gastroesophageal reflux disease: ?Code(s): K21.9 - Gastro-esophageal reflux disease without esophagitis ?Status:?Acute Assessment Patient reported chronic epistaxis, and it is likely the blood loss is from chronic nose bleed. EGD today show gastric polyps s/p polypectomy. will monitor Hb if stable will discharge tomorrow with ENT f/u. # nose bleed s/p rhinorocket # acute blood loss anemia due to non bleed versus GI bleed.? FOBT did come back positive however this could be due to her ongoing nosebleed.? Transfused 2 unit of packed red blood cells.? Continue to monitor H&H to keep hemoglobin at this more than 7 but due to her underlying history of coronary artery disease may be more than 8 # FOBT positive stool unsure if ongoing GI bleed as she might have swallowed some blood due to her nose bleed that has been ongoing since past 3 days.? GI has been consulted.? Will continue on Protonix as ordered once daily.? Await GI recommendation # coronary artery disease status post stent back in April 2022.? Brilinta has been stopped per Cardiology recommendation.? Continue only on aspirin.? This might help with the bleeding problem that she has been having # type 2 diabetes mellitus on insulin.? SSI A1c controlled.? 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 She sees Dr. Hdez as an outpatient basis.? Baseline creatinine mid 2s.? Admission creatinine was 3.2 slightly improved down to 3.? May be a new baseline.? Continue to monitor.? No acute indication for hemodialysis # hypertension # hyperlipidemia # DVT prophylaxis SCDs # code status full code DS: Summary Hospital Course Hospital Course: Patient admitted to the hospital for epistaxis with anemia, was on Aspirin and Brilinta. Had Rhino rocket and ENT was consulted patient underwent rhinoscopy. Epistaxis resolved. patient noted to be iron deficiency on evaluation, received 3 units of IV iron and discharged on Oral Iron. H b trending up, Repeat CBC on 11/19/22, f/u with ENT and GI as instructed. Cardiology agreed to stop Aspirin and Brilinta. f/u with cardiology for adjustment F/u with PCp in 3-5 days. Time Spent with Patient Time attestation: Total time spent providing and/or coordinating discharge services: Exam Narrative: General:? Well appearing female not in acute distress HEENT:??PERRL, EOMI. Sclera anicteric. Moist mucous membranes.? Oropharynx is crowded and poorly visualized. Rhino rocket in the right naris with some dried blood noted. Neck:??Supple. Respiratory:?Respirations are nonlabored and lungs are clear to auscultation. Cardiovascular:??Regular rate and rhythm with S1-S2. Soft murmur at the upper sternal border. Gastrointestinal:??Abdomen is soft, obese, nontender, and nondistended with positive bowel sounds. Skin:??Warm and dry. Generalized
[2022-11-16 11:53] LABS: Glucose Point of Care 246 mg/dl (65-105)
[2022-11-16] MEDS: INSULIN ASPART (*BKC) 100 UNITS/ML SUB-Q (12:06)
== END 2022-11-16 16:15 | disposition home or self-care (01) ==
LOC: ANHIMU 11-14 07:18 → ANH2MED 11-16 10:45 → ANHIMU 11-19 11:27
PROVIDERS: Chiropractor; Internal Medicine; Internal Medicine Gastroenterology; Physician Assistant; Admitting Provider Internal Medicine; PCP Family Medicine; Visit Provider Internal Medicine
PROC: 0DJ08ZZ Inspection of Upper Intestinal Tract, Via Natural or Artificial Opening Endoscopic (ICD-10-PCS; CPT 43235; principal; 2022-11-14 12:30)
DX: R04.0 Epistaxis (principal); D64.9 Anemia, unspecified; R19.5 Other fecal abnormalities; D50.9 Iron deficiency anemia, unspecified; N18.4 Chronic kidney disease, stage 4 (severe); K21.9 Gastro-esophageal reflux disease without esophagitis; K31.7 Polyp of stomach and duodenum; M19.90 Unspecified osteoarthritis, unspecified site; I25.10 Atherosclerotic heart disease of native coronary artery without angina pectoris; Z95.5 Presence of coronary angioplasty implant and graft; I12.9 Hypertensive chronic kidney disease with stage 1 through stage 4 chronic kidney disease, or unspecified chronic kidney disease; E11.22 Type 2 diabetes mellitus with diabetic chronic kidney disease; E11.42 Type 2 diabetes mellitus with diabetic polyneuropathy; E66.01 Morbid (severe) obesity due to excess calories; I25.2 Old myocardial infarction; Z68.41 Body mass index [BMI] 40.0-44.9, adult; Z87.891 Personal history of nicotine dependence; Z85.3 Personal history of malignant neoplasm of breast; Z92.21 Personal history of antineoplastic chemotherapy; Z92.3 Personal history of irradiation; Z79.82 Long term (current) use of aspirin; Z79.4 Long term (current) use of insulin; Z79.899 Other long term (current) drug therapy; Z82.49 Family history of ischemic heart disease and other diseases of the circulatory system; Z83.3 Family history of diabetes mellitus; Z84.89 Family history of other specified conditions; Z80.9 Family history of malignant neoplasm, unspecified
CPT/HCPCS: 43251; 43239; 36415; 80048; 80053; 82948; 83036; 83540; 83550; 83735; 85014; 85018; 85025; 85055; 85610; 87081; 88305; 96365; 96375; 97161; A9270; G0378; G0379; J1756; J1815; J2704; J7120

== ENCOUNTER 2022-11-19 07:34 | Outpatient (CLI) | payer MEDICARE, SELFPAY ==
[2022-11-19 08:11] LABS: Hematocrit 30.4 % (35.0-42.0); Hemoglobin 8.6 g/dL (11.7-13.8); Immature Platelet Fraction Pct 4.1 % (1.0-7.0); Mean Corpuscular HGB Conc 28.3 g/dL (32.0-36.0); Mean Corpuscular Hemoglobin 22.1 pg (27.0-31.0); Mean Corpuscular Volume 78.1 fL (78.0-102.0); Mean Platelet Volume 11.3 fl (9.2-11.8); Platelet Count Result 283 K/mm3 (150-420); Red Blood Count 3.89 M/mm3 (4.20-5.40); White Blood Count 11.4 K/mm3 (4.8-10.8)
== END 2022-11-19 07:35 | disposition home or self-care (01) ==
LOC: CHSLAB 07:35
PROVIDERS: PCP Family Medicine; Visit Provider Internal Medicine
DX: D64.9 Anemia, unspecified (principal)
CPT/HCPCS: 36415; 85027; 85055

== ENCOUNTER 2023-01-19 09:11 | Outpatient (CLI) | payer MEDICARE, SELFPAY ==
[2023-01-19 12:07] LABS: Parathyroid Intact 85.2 pg/mL (7.5-53.5)
[2023-01-19 12:14] LABS: Vitamin D 25 Hydroxy 66.8 ng/mL
[2023-01-19 12:24] LABS: Creatinine Urine 186.7 mg/dL
[2023-01-19 12:25] LABS: Albumin Level 4.4 g/dL (3.5-5.1); Anion Gap 10 mmol/L (8-16); Blood Urea Nitrogen 30 mg/dL (7-17); Calcium 9.5 mg/dL (8.4-10.2); Carbon Dioxide 27 mmol/L (22-30); Chloride 104 mmol/L (98-107); Estimated Glomerular Filt Rate 18; Glucose 125 mg/dL (65-110); Phosphorus 3.8 mg/dL (2.5-4.5); Potassium 4.6 mmol/L (3.4-5.0); Sodium 141 mmol/L (137-145)
[2023-01-19 13:33] LABS: Total Protein Urine Random 299 mg/dL
== END 2023-01-19 09:12 | disposition home or self-care (01) ==
PROVIDERS: PCP Family Medicine; Visit Provider Internal Medicine Nephrology
DX: E55.9 Vitamin D deficiency, unspecified (principal); E11.22 Type 2 diabetes mellitus with diabetic chronic kidney disease; I12.9 Hypertensive chronic kidney disease with stage 1 through stage 4 chronic kidney disease, or unspecified chronic kidney disease; N18.4 Chronic kidney disease, stage 4 (severe); N25.81 Secondary hyperparathyroidism of renal origin; R80.9 Proteinuria, unspecified
CPT/HCPCS: 36415; 80069; 82306; 82570; 83970; 84156

== ENCOUNTER 2023-05-25 08:49 | Outpatient (CLI) | payer MEDICARE, SELFPAY ==
[2023-05-25 10:08] LABS: Albumin Level 4.2 g/dL (3.5-5.1); Anion Gap 11 mmol/L (8-16); Blood Urea Nitrogen 32 mg/dL (7-17); Calcium 8.9 mg/dL (8.4-10.2); Carbon Dioxide 26 mmol/L (22-30); Chloride 107 mmol/L (98-107); Estimated Glomerular Filt Rate 22; Glucose 96 mg/dL (65-110); Phosphorus 3.4 mg/dL (2.5-4.5); Potassium 3.5 mmol/L (3.4-5.0); Sodium 144 mmol/L (137-145)
[2023-05-25 10:11] LABS: Total Protein Urine Random 132 mg/dL
== END 2023-05-25 08:50 | disposition home or self-care (01) ==
PROVIDERS: PCP Family Medicine; Visit Provider Internal Medicine Nephrology
DX: I12.9 Hypertensive chronic kidney disease with stage 1 through stage 4 chronic kidney disease, or unspecified chronic kidney disease (principal); E11.22 Type 2 diabetes mellitus with diabetic chronic kidney disease; N18.4 Chronic kidney disease, stage 4 (severe); R80.9 Proteinuria, unspecified
CPT/HCPCS: 36415; 80069; 82570; 84156

== ENCOUNTER 2023-10-11 09:52 | Outpatient (CLI) | payer MEDICARE, SELFPAY ==
[2023-10-11 10:49] LABS: Albumin Level 3.9 g/dL (3.5-5.1); Anion Gap 8 mmol/L (8-16); Blood Urea Nitrogen 29 mg/dL (7-17); Calcium 9.2 mg/dL (8.4-10.2); Carbon Dioxide 24 mmol/L (22-30); Chloride 111 mmol/L (98-107); Estimated Glomerular Filt Rate 19; Glucose 150 mg/dL (65-110); Phosphorus 3.3 mg/dL (2.5-4.5); Potassium 3.5 mmol/L (3.4-5.0); Sodium 143 mmol/L (137-145)
[2023-10-11 11:04] LABS: Parathyroid Intact 71.2 pg/mL (7.5-53.5)
[2023-10-11 11:07] LABS: Vitamin D 25 Hydroxy 40.6 ng/mL
[2023-10-11 11:14] LABS: Creatinine Urine 116.2 mg/dL
[2023-10-11 12:20] LABS: Total Protein Urine Random > 600 mg/dL
== END 2023-10-11 09:53 | disposition home or self-care (01) ==
LOC: ANHLAB 09:58
PROVIDERS: PCP Family Medicine; Visit Provider Internal Medicine Nephrology
DX: R80.9 Proteinuria, unspecified (principal); E55.9 Vitamin D deficiency, unspecified; N25.81 Secondary hyperparathyroidism of renal origin; I12.9 Hypertensive chronic kidney disease with stage 1 through stage 4 chronic kidney disease, or unspecified chronic kidney disease; E11.22 Type 2 diabetes mellitus with diabetic chronic kidney disease
CPT/HCPCS: 36415; 80069; 82306; 82570; 83970; 84156

== ENCOUNTER 2023-10-23 08:52 | Emergency (ER) | payer MEDICARE, SELFPAY ==
--- NOTE | ~2023-10-23 | XR_ITS ---
XR chest 1V portable DATE: 10/23/2023 09:17 INDICATION: Chest pain, cough TECHNIQUE: Portable AP chest on 10/23/2023 at 0918 hours COMPARISON: 07/11/2022 PA and lateral chest FINDINGS: Cardiomegaly. No pulmonary infiltrate or consolidation, pleural effusion or pulmonary vascular congestion or pneumo thorax is detected. Diffuse osteopenia. There is levoscoliosis and degenerative spurring of the thoracic spine. IMPRESSION: Cardiomegaly; no active pulmonary disease Reviewed, dictated and finalized at location B. NG MACHINE OPERATOR
[2023-10-23 08:53] VITALS: BP 173/82; PULSE 88; RESP 19; TEMP 36.6; O2SAT 99
--- NOTE | 2023-10-23 08:54 | ED.URI ---
HPI - URI/Sore Throat General Chief Complaint: Weakness Stated Complaint: weakness Time Seen by Provider: 10/23/23 08:53 Source: patient Mode of arrival: ambulatory Limitations: no limitations History of Present Illness HPI Narrative: 73-year-old female with obesity, arthritis, breast cancer, hypertension, diabetes mellitus, dyslipidemia, CAD status post stents, COPD, CKD/kidney stones presents to the ER with a 3 day history of -- nonproductive cough -- shortness of breath. -- upper respiratory and chest congestion. -- Questionable vomiting. Her son noted to have dried vomitus on her shirt but she does not remember having vomited. No abdominal pain. -- Explosive diarrhea for the last 2-3 days. -- Patient had a fall /slid out of chair but does not have any obvious injuries. MD elicited complaint: cough and nasal congestion Pertinent past history: COPD Onset (ago): day(s) ( Started 3 days ago) Consistency: constant Able to tolerate fluids by mouth: Yes Exacerbating factors: nothing Relieving factors: nothing Associated symptoms: nasal congestion, cough, shortness of breath, vomiting and diarrhea Related Data Home Medications Medication Instructions Recorded Confirmed pantoprazole 40 mg tablet,delayed 40 mg PO HS 01/07/20 10/23/23 release atorvastatin 80 mg tablet 80 mg PO HS 08/24/20 10/23/23 icosapent ethyl 1 gram capsule 2 g PO BID 10/18/20 10/23/23 (Vascepa) cholecalciferol (vitamin D3) 50 50 mcg PO HS 02/15/21 10/23/23 mcg (2,000 unit) capsule furosemide 20 mg tablet 20 mg PO DAILY 10/23/23 10/23/23 icosapent ethyl 1 gram capsule 1 g PO BID 10/23/23 10/23/23 Allergies Allergy/AdvReac Type Severity Reaction Status Date / Time hydrocodone Allergy Severe rash Verified 10/23/23 09:21 peach Allergy Severe Anaphylactic Verified 10/23/23 09:21 Shock adhesive tape Allergy Unknown rash Verified 10/23/23 09:21 cefdinir Allergy Unknown rash Verified 10/23/23 09:21 prochlorperazine Allergy Unknown Verified 10/23/23 09:21 adhesive AdvReac Intermediate TAPE= RASH Verified 10/23/23 09:21 DYE USED FOR CLOTHING Allergy Unknown SWELLING, Uncoded 10/23/23 09:21 INFECTION FROM DYE Review of Systems Review of Systems: All systems reviewed & are unremarkable except as noted in HPI and below Constitutional: Constitutional: Reports as per HPI and Reports no additional constitutional complaints Eyes: Eyes: Reports as per HPI and Reports no additional eye complaints ENT: Reports system reviewed and no additional complaints, except as documented, Reports as per HPI and Reports nasal congestion Cardiovascular: Cardiovascular: Reports as per HPI and Reports no additional cardiovascular complaints Respiratory: Respiratory: Reports as per HPI, Reports no additional respiratory complaints, Reports cough and Reports dyspnea Gastrointestinal: Gastrointestinal: Reports as per HPI, Reports no additional gastrointestinal complaints, Reports diarrhea and Reports vomiting Musculoskeletal: Musculoskeletal: Reports no additional musculoskeletal complaints and Reports as per HPI Integumentary/Breasts: Skin/Breast: Reports system reviewed and no additional complaints, except as docu and Reports as per HPI Neurologic: Reports system reviewed and no additional complaints, except as documented and Reports as per HPI Psychiatric: Psychiatric: Reports no additional psychiatric complaints and Reports as per HPI Endocrine: Endocrine: Reports no additional endocrine complaints and Reports as per HPI Hematologic/Lymphatic: Hematologic/Lymphatic: Reports no additional hematologic/lymphatic complaints and Reports as per HPI Allergic/Immunologic: Allergic/Immunologic: Reports no additional allergic/immunologic complaints and Reports as per HPI PMF Past Medical History Medical History Arthritis Cancer of left breast Status post lumpectomy and chemoradiation. Cholelithiasis
--- NOTE | 2023-10-23 08:58 | ECG_ITS ---
Measurements Intervals [place] Rate: 88 P: 26 OR: 151 QRS: -13 QRSD: 92 T: -33 QT: 377 QTc: 456 Interpretive Statements SINUS RHYTHM LEFT VENTRICULAR HYPERTROPHY INFERIOR INFARCT, AGE INDETERMINATE BORDERLINE T WAVE ABNORMALITY- ANTEROLATERAL LEADS ABNORMAL ECG COMPARED TO ECG 10/16/2020 10:16:24 LEFT VENTRICULAR HYPERTROPHY NOW PRESENT Electronically Signed On 10-23-2023 10:21:17 CREDENTIALING SPECIALIST by Titi Oviedo D.O.
[2023-10-23 09:01] VITALS: RESP 20; O2SAT 93
[2023-10-23 09:32] LABS: Basophils Absolute Auto 0.04 K/mm3 (0.00-0.10); Basophils Percent Auto 0.2 % (0.0-1.0); Hematocrit 46.8 % (35.0-42.0); Hemoglobin 15.2 g/dL (11.7-13.8); Immature Granulocyte Absolute 0.09 K/mm3 (0.00-0.00); Immature Granulocyte Percent A 0.5 % (0.0-0.0); Lymphocytes Absolute Auto 0.63 K/mm3 (1.10-4.50); Lymphocytes Percent Auto 3.5 % (18.0-42.0); Mean Corpuscular HGB Conc 32.5 g/dL (32.0-36.0); Mean Corpuscular Hemoglobin 27.7 pg (27.0-31.0); Mean Corpuscular Volume 85.4 fL (78.0-102.0); Mean Platelet Volume 11.8 fl (9.2-11.8); Monocytes Absolute Auto 0.89 K/mm3 (0.10-0.90); Neutrophils Absolute Auto 16.2 K/mm3 (1.7-7.2); Neutrophils Percent Auto 90.8 % (50.0-70.0); Platelet Count Result 203 K/mm3 (150-420); Red Blood Count 5.48 M/mm3 (4.20-5.40); Red Cell Distribution Width 15.6 % (11.6-14.4); White Blood Count 17.8 K/mm3 (4.8-10.8)
[2023-10-23 09:35] LABS: SARS-CoV-2 RNA PCR Positive (Negative)
[2023-10-23 09:37] LABS: Influenza A QL RT-PCR Negative (Negative); Influenza B QL RT-PCR Negative (Negative); RSV RNA, RT-PCR Negative (Negative)
[2023-10-23 09:52] LABS: Lactic Acid Reflex 1.5 mmol/L (0.4-2.0)
[2023-10-23 09:53] LABS: Alanine Aminotransferase 28 U/L (14-59); Alkaline Phosphatase 84 U/L (46-116); Anion Gap 15 mmol/L (8-16); Aspartate Amino Transferase 30 U/L (15-37); Bilirubin,Total 0.8 mg/dL (0.00-1.00); Blood Urea Nitrogen 26 mg/dL (7-18); Calcium 8.9 mg/dL (8.5-10.1); Carbon Dioxide 25 mmol/L (21-32); Chloride 105 mmol/L (98-108); Estimated Glomerular Filt Rate 19; Glucose 75 mg/dL (70-99); Osmolality Calculated 303 mOsm/kg (285-295); Potassium 2.8 mmol/L (3.5-5.1); Sodium 145 mmol/L (136-145); Total Protein 7.9 g/dL (6.4-8.2)
[2023-10-23 09:54] LABS: Troponin I 33.8 ng/L (0.00-60.4)
[2023-10-23 10:01] LABS: Lipase 33 U/L (16-77)
[2023-10-23] MEDS: POTASSIUM CHLORIDE 20 MEQ ER TABLET 40 MEQ PO (10:30)
[2023-10-23] MEDS: KCL 20 MEQ/SW 100 ML 100 ML 50 MEQ IVPB (10:30)
[2023-10-23 10:52] LABS: Appearance Urine Clear (Clear); Bilirubin Urine Negative (Negative); Blood Urine 3+ (Negative); Color Urine Light Yellow (Yellow); Glucose Urine UA Negative (Negative); Ketones Urine Trace (Negative); Leukocyte Esterase Ur 1+ LEU/UL (Negative); Nitrate Urine Negative (Negative); Protein Urine 3+ (Negative); Urobilinogen Urine 0.2 mg/dL (0.2-1.0)
[2023-10-23 10:57] LABS: Add Urine Microscopic? YES; Bacteria Urine Trace /hpf; Squamous Epithelial Cell Urine Rare /hpf (Few); WBC Urine 31-50 /hpf (0-3)
[2023-10-23] MEDS: SODIUM CHLORIDE 0.9% IV 500 ML 250 ML IV CONT (11:13)
[2023-10-23 13:47] LABS: Magnesium 1.2 mg/dL (1.8-2.4); Potassium 3.9 mmol/L (3.5-5.1)
[2023-10-23 13:51] VITALS: BP 168/72; PULSE 88; RESP 20; TEMP 37.1; O2SAT 97
[2023-10-23] MEDS: MAGNESIUM SULF 2 GM/WATER 50ML 2 GM/50 ML BAG IVPB (14:18)
--- NOTE | 2023-10-26 18:06 | PC.NURSE ---
urine culture reviewed. spoke with christina hardy, charge nurse. pt is on abt. hospitalist is aware
--- NOTE | 2023-11-06 07:06 | PC.NURSE ---
10/23/23 Magnesium was infused and stopped on DEC at 1445 pts iv was d/c'd and pt discharged home
== END 2023-10-23 14:47 | disposition home or self-care (01) ==
PROVIDERS: Emergency Provider Internal Medicine Critical Care Medicine; PCP Family Medicine
DX: U07.1 COVID-19 (principal); E87.8 Other disorders of electrolyte and fluid balance, not elsewhere classified; I12.9 Hypertensive chronic kidney disease with stage 1 through stage 4 chronic kidney disease, or unspecified chronic kidney disease; E11.22 Type 2 diabetes mellitus with diabetic chronic kidney disease; N18.4 Chronic kidney disease, stage 4 (severe); I25.10 Atherosclerotic heart disease of native coronary artery without angina pectoris; Z87.891 Personal history of nicotine dependence; Z85.3 Personal history of malignant neoplasm of breast
CPT/HCPCS: 36415; 71045; 80053; 81001; 83605; 83690; 83735; 84132; 84484; 85025; 87077; 87086; 87088; 87186; 87637; 93005; 96365; 96366; 96367; 99284; A9270; J3475; J3480; J7040

== ENCOUNTER 2023-10-25 09:04 | Inpatient (IN) | payer MEDICARE, SELFPAY ==
[2023-10-25] VITALS (25 sets, daily range): BP systolic 147–177; BP diastolic 75–100; PULSE 75–102; RESP 14–28; TEMP 36.5–37.1; O2SAT 90–100; BMI 37.3
--- NOTE | ~2023-10-25 | NM_ITS ---
EXAMINATION: NM pulmonary perfusion DATE: 10/25/2023 13:52 INDICATION: Shortness of breath and fatigue. COVID positive with elevated d-dimer. TECHNIQUE: 5.4 mCi Tc-99m MAA by intravenous route. Scintigraphic images of the chest were obtained. COMPARISON: Chest radiograph dated 10/23/2023 FINDINGS: There is relatively homogeneous perfusion throughout the lungs. No discrete ventilation and perfusio n mismatch is identified. IMPRESSION: 1. Low probability for pulmonary embolism. Reviewed, dictated and finalized at location A. DESIGNER
--- NOTE | ~2023-10-25 | XR_ITS ---
XR chest 1V portable DATE: 10/25/2023 10:04 INDICATION: Worsening congestion and chest tightness. Pneumonia. TECHNIQUE: Portable upright AP chest on 10/25/2023 1007 hours COMPARISON: 10/23/2023 portable AP chest FINDINGS: Cardiomegaly. Mild aortic unfolding. There is pulmonary vascular redistribution which may i ndicate pulmonary venous hypertension. Minimal infiltrate or atelectasis is suggested at the right lung base. No pleural effusion or pneumot horax is evident. Osteopenia. IMPRESSION: Cardiomegaly, pulmonary vascular redistribution, which may indicate mild congestive peoples e Minimal infiltrate or atelectasis at right lung base Reviewed, dictated and finalized at location B. TER ELECTRICAL IMPRESSION: Cardiomegaly, pulmonary vascular redistribution, which may indicate mild congestive change Minimal infiltrate or atelectasis at right lung base
--- NOTE | 2023-10-25 09:16 | ECG_ITS ---
Measurements Intervals [place] Rate: 86 P: 1 IN: 168 QRS: -17 QRSD: 92 T: 231 QT: 387 QTc: 465 Interpretive Statements SINUS RHYTHM DELAYED PRECORDIAL R/S TRANSITION LEFT VENTRICULAR HYPERTROPHY AND ST-T CHANGE INFERIOR INFARCT, AGE INDETERMINATE BASELINE ARTIFACT- I, III, AVR, AVL, AVF ABNORMAL ECG COMPARED TO ECG 10/23/2023 09:27:51 NO SIGNIFICANT CHANGES Electronically Signed On 10-25-2023 10:28:27 MOSS GATHERER by Titi Oviedo D.O.
[2023-10-25] MEDS: IPRATROPIUM 0.5 MG/ALBUTEROL SULFATE 2.5 MG AMPUL.NEB 3 ML INHALATION (09:38)
[2023-10-25 09:44] LABS: Basophils Absolute Auto 0.04 K/mm3 (0.00-0.10); Basophils Percent Auto 0.3 % (0.0-1.0); Eosinophils Absolute Auto 0.08 K/mm3 (0.02-0.50); Eosinophils Percent Auto 0.6 % (1.0-6.0); Hematocrit 46.1 % (35.0-42.0); Hemoglobin 15.1 g/dL (11.7-13.8); Immature Granulocyte Absolute 0.05 K/mm3 (0.00-0.00); Immature Granulocyte Percent A 0.4 % (0.0-0.0); Lymphocytes Absolute Auto 0.97 K/mm3 (1.10-4.50); Lymphocytes Percent Auto 7.1 % (18.0-42.0); Mean Corpuscular HGB Conc 32.8 g/dL (32.0-36.0); Mean Corpuscular Hemoglobin 28.2 pg (27.0-31.0); Mean Platelet Volume 12.2 fl (9.2-11.8); Monocytes Absolute Auto 0.76 K/mm3 (0.10-0.90); Monocytes Percent Auto 5.6 % (2.0-11.0); Neutrophils Absolute Auto 11.7 K/mm3 (1.7-7.2); Platelet Count Result 187 K/mm3 (150-420); Red Blood Count 5.36 M/mm3 (4.20-5.40); Red Cell Distribution Width 15.9 % (11.6-14.4); White Blood Count 13.6 K/mm3 (4.8-10.8)
--- NOTE | 2023-10-25 10:05 | ED.URI ---
HPI - URI/Sore Throat General Chief Complaint: Weakness Stated Complaint: weakness Time Seen by Provider: 10/25/23 09:08 Source: patient Mode of arrival: ambulatory Limitations: no limitations History of Present Illness HPI Narrative: Patient is a 73-year-old female with a significant past medical history that presents today for COVID-19. Patient was diagnosed with COVID19, 3 days ago. She States since then she is becoming more weak and unable to get up walk around the house. She also had increased shortness of breath. She has a bad cough, congestion, rhinorrhea. She states she lives by herself and is unable to take care of herself and she has this sick. She states she just feels very very weak and has stated the shortness of breath has gotten worse. MD elicited complaint: cough, sore throat, rhinorrhea, nasal congestion and sinus pain Pertinent past history: other (COVID 19) Onset (ago): day(s) (3) Consistency: progressively worsening Severity: moderate Description of mucous: yellow and green Able to tolerate fluids by mouth: Yes Exacerbating factors: exertion and deep breaths Relieving factors: nothing Context: sick contacts Associated symptoms: fever, chills, myalgias, headache, rhinorrhea, nasal congestion, sore throat, cough and shortness of breath Treatments prior to arrival: cold medicine Related Data Home Medications Medication Instructions Recorded Confirmed pantoprazole 40 mg tablet,delayed 40 mg PO HS 01/07/20 10/25/23 release atorvastatin 80 mg tablet 80 mg PO HS 08/24/20 10/25/23 cholecalciferol (vitamin D3) 50 50 mcg PO HS 02/15/21 10/25/23 mcg (2,000 unit) capsule furosemide 20 mg tablet 20 mg PO DAILY 10/23/23 10/25/23 icosapent ethyl 1 gram capsule 1 g PO BID 10/23/23 10/25/23 glucagon 3 mg/actuation nasal spray 3 mg intranasal ONCE PRN 10/25/23 10/25/23 Hypoglycemia Allergies Allergy/AdvReac Type Severity Reaction Status Date / Time hydrocodone Allergy Severe rash Verified 10/23/23 09:21 peach Allergy Severe Anaphylactic Verified 10/23/23 09:21 Shock adhesive tape Allergy Unknown rash Verified 10/23/23 09:21 cefdinir Allergy Unknown rash Verified 10/23/23 09:21 prochlorperazine Allergy Unknown Verified 10/23/23 09:21 adhesive AdvReac Intermediate TAPE= RASH Verified 10/23/23 09:21 DYE USED FOR CLOTHING Allergy Unknown SWELLING, Uncoded 10/23/23 09:21 INFECTION FROM DYE Review of Systems Review of Systems: All systems reviewed & are unremarkable except as noted in HPI and below Constitutional: Constitutional: Reports fatigue and Reports fever(s) Eyes: Eyes: Reports no additional eye complaints ENT: Reports as per HPI Cardiovascular: Cardiovascular: Reports no additional cardiovascular complaints Respiratory: Respiratory: Reports as per HPI, Reports chest congestion, Reports cough, Reports dyspnea and Reports wheezing Gastrointestinal: Gastrointestinal: Reports no additional gastrointestinal complaints Genitourinary: Genitourinary: Reports no additional female genitourinary complaints Musculoskeletal: Musculoskeletal: Reports no additional musculoskeletal complaints Integumentary/Breasts: Skin/Breast: Reports system reviewed and no additional complaints, except as docu Neurologic: Reports system reviewed and no additional complaints, except as documented Psychiatric: Psychiatric: Reports no additional psychiatric complaints Endocrine: Endocrine: Reports no additional endocrine complaints Hematologic/Lymphatic: Hematologic/Lymphatic: Reports no additional hematologic/lymphatic complaints Allergic/Immunologic: Allergic/Immunologic: Reports no additional allergic/immunologic complaints PMFSH Past Medical History Medical History Arthritis Cancer of left breast Status post lumpectomy and chemoradiation. Cholelithiasis Chronic kidney disease, stage 4 (severe) Chronic obstructive pulmonary disease Per p
[2023-10-25] MEDS: methylPREDNISolone SOD SUCC 125 MG VIAL IV PUSH (10:06)
[2023-10-25 10:09] LABS: Alanine Aminotransferase 26 U/L (14-59); Albumin Level 2.6 g/dL (3.4-5.0); Alkaline Phosphatase 78 U/L (46-116); Anion Gap 12 mmol/L (8-16); Aspartate Amino Transferase 22 U/L (15-37); Blood Urea Nitrogen 23 mg/dL (7-18); Calcium 9.2 mg/dL (8.5-10.1); Carbon Dioxide 26 mmol/L (21-32); Chloride 105 mmol/L (98-108); Estimated Glomerular Filt Rate 23; Glucose 79 mg/dL (70-99); Osmolality Calculated 298 mOsm/kg (285-295); Sodium 143 mmol/L (136-145); Total Protein 7.6 g/dL (6.4-8.2)
[2023-10-25 10:13] LABS: Acetone Negative (Negative); Lipase 25 U/L (16-77)
[2023-10-25 10:13] LABS: NT Pro B Type Natriuretic Pept 3001 pg/mL (0-450)
[2023-10-25 10:17] LABS: D Dimer 0.95 mg/L (0.19-0.50)
[2023-10-25] MEDS: POTASSIUM CHLORIDE 20 MEQ ER TABLET 40 MEQ PO (10:36)
[2023-10-25] MEDS: FUROSEMIDE INJ 40 MG/4 ML VIAL IV PUSH (10:37)
[2023-10-25] MEDS: AZITHROMYCIN 500 MG/NS 250 ML 500 MG/250 ML BAG 250 MG IVPB (10:38)
[2023-10-25 10:56] LABS: Bilirubin Urine Negative (Negative); Blood Urine 2+ (Negative); Glucose Urine UA Negative (Negative); Ketones Urine Negative (Negative); Leukocyte Esterase Ur 1+ LEU/UL (Negative); Nitrate Urine Negative (Negative); Protein Urine 3+ (Negative); Specific Grav Ur 1.025 (1.010-1.020); Urobilinogen Urine 0.2 mg/dL (0.2-1.0)
[2023-10-25 11:07] LABS: Add Urine Microscopic? YES; Appearance Urine Slightly Cloudy (Clear); Bacteria Urine Trace /hpf; Color Urine Dark Yellow (Yellow); Squamous Epithelial Cell Urine Few /hpf (Few); WBC Urine 21-30 /hpf (0-3)
--- NOTE | 2023-10-25 11:31 | PC.NURSE ---
pt needing vq scan for elevated d-dimer. will be available at 1330 today.
--- NOTE | 2023-10-25 12:20 | ADMGEN ---
This patient, Jessika Falk, was admitted to 2nd Floor Room 210-2. Patient/family oriented to hospital policies and general routines including ID bracelet, bed and alarms, visiting hours, pain management, procedures, bathroom and other care routines, personal items, smoking policy, room service/diet, and visiting hours. Information on how to activate the Rapid Response Team has been discussed. Patient/Family are encouraged to report perceived risks to care and to ask questions if they do not understand what they are told or what they should do.
[2023-10-25 12:32] LABS: Glucose Point of Care 95 mg/dl (65-105)
[2023-10-25 17:04] LABS: Glucose Point of Care 196 mg/dl (65-105)
[2023-10-25] MEDS: OMEGA 3 POLYUNSAT FATTY ACIDS 1 GM CAP PO (17:17)
[2023-10-25] MEDS: ACETAMINOPHEN 325 MG TABLET 650 MG PO (21:47)
[2023-10-25] MEDS: PANTOPRAZOLE 40 MG TABLET PO (21:47)
[2023-10-25] MEDS: ATORVASTATIN 40 MG TABLET 80 MG PO (21:48)
[2023-10-25 21:58] LABS: Glucose Point of Care 406 mg/dl (65-105)
[2023-10-25] MEDS: INSULIN HUMAN LISPRO (*BKC) 1,000 UNITS/10 ML VIAL 10 UNITS SUB-Q (22:28)
[2023-10-26] VITALS: BP 144/78; PULSE 94; RESP 16; TEMP 36.9; O2SAT 97
[2023-10-26 05:29] LABS: Basophils Absolute Auto 0.02 K/mm3 (0.00-0.10); Basophils Percent Auto 0.2 % (0.0-1.0); Hematocrit 42.1 % (35.0-42.0); Hemoglobin 13.8 g/dL (11.7-13.8); Immature Granulocyte Absolute 0.07 K/mm3 (0.00-0.00); Immature Granulocyte Percent A 0.7 % (0.0-0.0); Lymphocytes Absolute Auto 0.72 K/mm3 (1.10-4.50); Lymphocytes Percent Auto 6.9 % (18.0-42.0); Mean Corpuscular HGB Conc 32.8 g/dL (32.0-36.0); Mean Corpuscular Volume 85.6 fL (78.0-102.0); Mean Platelet Volume 11.7 fl (9.2-11.8); Monocytes Absolute Auto 0.76 K/mm3 (0.10-0.90); Monocytes Percent Auto 7.2 % (2.0-11.0); Neutrophils Absolute Auto 8.9 K/mm3 (1.7-7.2); Platelet Count Result 209 K/mm3 (150-420); Red Blood Count 4.92 M/mm3 (4.20-5.40); Red Cell Distribution Width 15.5 % (11.6-14.4); White Blood Count 10.5 K/mm3 (4.8-10.8)
[2023-10-26 05:45] LABS: Anion Gap 11 mmol/L (8-16); Blood Urea Nitrogen 33 mg/dL (7-18); Carbon Dioxide 26 mmol/L (21-32); Chloride 103 mmol/L (98-108); Estimated CRCL calculation 23 ml/min; Estimated Glomerular Filt Rate 20; Glucose 259 mg/dL (70-99); Osmolality Calculated 306 mOsm/kg (285-295); Potassium 3.1 mmol/L (3.5-5.1); Sodium 140 mmol/L (136-145)
[2023-10-26 08:00] VITALS: BP 136/73; PULSE 91; RESP 18; TEMP 36.3; O2SAT 98
[2023-10-26] MEDS: INSULIN HUMAN LISPRO (*BKC) 1,000 UNITS/10 ML VIAL SUB-Q ×3 (09:29→17:24)
[2023-10-26] MEDS: AZITHROMYCIN 500 MG/NS 250 ML 500 MG/250 ML BAG 250 MG IVPB (09:30)
[2023-10-26] MEDS: OMEGA 3 POLYUNSAT FATTY ACIDS 1 GM CAP PO ×2 (09:31→16:45)
[2023-10-26] MEDS: FUROSEMIDE 20 MG TABLET PO (09:31)
--- NOTE | 2023-10-26 10:16 | PM.IMHP ---
H&P: HPI History of Present Illness Date/Time: 10/26/23 10:16 Chief Complaint: UTI, Pneumonia, Weakness, Covid, hypokalemia Narrative: This is a 73-year-old female patient recently diagnosed with COVID who came back to the emergency department due to possible fall and unable to get up off the floor without assistance from EMS. Patient reports that he EMS was called to her house provided lift assist but then left without transporting so the next morning when patient was unable to get up out of the chair she called her son to coming get hurt. She states that she had significant weakness and unable to stand or ambulate on her own. She also reports that she had been pre treated for hypokalemia but not sent home with potassium replacement and she thinks that contributed to her weakness. Patient has a past medical history including type 2 diabetes, chronic kidney disease, COPD, hypertension and hyperlipidemia. While in the emergency department for this visit patient had findings suggestive of UTI and chest x-ray indicative of pneumonia in the right lung base and possible congestive changes so she was started on dexamethasone azithromycin and ceftriaxone. Pulmonary perfusion scan was completed showing low risk of PE. Unable to obtain CTA due to baseline renal function stage IV CKD. White blood cell count is improving after IV antibiotics. Patient remains too weak to return home at this time. PT and OT have been consulted awaiting recommendations. Review of Systems Review of Systems: All systems reviewed & are unremarkable except as noted in HPI and below PMFSH Past Medical History Medical History Arthritis Cancer of left breast Status post lumpectomy and chemoradiation. Cholelithiasis Chronic kidney disease, stage 4 (severe) Chronic obstructive pulmonary disease Per patient report she had PFTs done in [place] however if she saw the hops farmworker here who stated he did not see any signs and symptoms of COPD and that the patient refused to have a PFT or obstructive sleep studies performed. Coronary artery disease Gastroesophageal reflux disease Hypertension Insulin dependent type 2 diabetes mellitus Kidney stone Morbid (severe) obesity due to excess calories Type 2 diabetes mellitus with diabetic chronic kidney disease Surgical History Surgical History History of bilateral cataract extraction History of extraction of renal calculus History of heart artery stent History of lumpectomy of left breast History of wisdom tooth extraction Family History Family History Mother Family history of diabetes mellitus in first degree relative Cancer CHF (congestive heart failure), NYHA class I Diabetes mellitus Family history of cardiovascular disease Family history of congestive heart failure Family history of hearing loss Family history of heart disease in male family member before age 55 Heart disease Family history of thyroid disease Thyroid disease Hypertension Father Cancer CHF (congestive heart failure), NYHA class I Family history of arthritis Family history of cardiovascular disease Family history of congestive heart failure Family history of hearing loss Family history of heart disease in male family member before age 55 Heart disease Family history of obesity Sibling CHF (congestive heart failure), NYHA class I Other Family history of malignant neoplasm Social History Social History Social History: 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ion maker: Epi Falk, son. Code status: Full code. Smoking packs per day: 1 Smoking cigarettes per day: 20.0 Years smoked: 10 Smoking pack-years: 10.00 Smoking status: Former smoker Tobacco type: cigarettes Second hand tobacco smoke exp
[2023-10-26 10:18] LABS: Magnesium 1.4 mg/dL (1.8-2.4)
[2023-10-26] MEDS: MAGNESIUM SULF 2 GM/WATER 50ML 2 GM/50 ML BAG IVPB (11:50)
[2023-10-26] MEDS: POTASSIUM CHLORIDE 20 MEQ ER TABLET 40 MEQ PO (11:50)
[2023-10-26 16:00] VITALS: BP 115/80; PULSE 95; RESP 17; TEMP 36.6; O2SAT 95
[2023-10-26] MEDS: PANTOPRAZOLE 40 MG TABLET PO (20:50)
[2023-10-26] MEDS: ATORVASTATIN 40 MG TABLET 80 MG PO (20:50)
[2023-10-26 21:00] LABS: Glucose Point of Care 292 mg/dl (65-105)
[2023-10-26 23:13] VITALS: BP 140/90; PULSE 90; RESP 15; TEMP 36.8; O2SAT 98
--- NOTE | 2023-10-27 04:45 | PM.DS ---
DS: Admitting Diagnosis Discharge Date 10/27/23 Admitting Diagnosis Uti pneumonia DS: Discharge Diagnosis Discharge Diagnosis (1) Urinary tract infection: Qualifiers: Hematuria presence: without hematuria Urinary tract infection type: site unspecified Qualified Code(s): N39.0 - Urinary tract infection, site not specified Code(s): N39.0 - Urinary tract infection, site not specified Status: Acute Assessment and Plan: IV Rocephin pending urine culture (2) COVID-19: Code(s): U07.1 - COVID-19 Status: Acute Assessment and Plan: Likely major reason for patient's significant weakness and inability to care for herself at home (3) Weakness: Code(s): R53.1 - Weakness Status: Acute Assessment and Plan: Due to Covid, UTI and pneumonia, PT/OT consulted and pending plan. Patient may require SNF before discharge home. (4) CKD stage 4 due to type 2 diabetes mellitus: Code(s): E11.22 - Type 2 diabetes mellitus with diabetic chronic kidney disease; N18.4 - Chronic kidney disease, stage 4 (severe) Status: Acute Assessment and Plan: Renal function appears to be near baseline with GFR 20 on morning labs. (5) Insulin dependent type 2 diabetes mellitus: Code(s): E11.9 - Type 2 diabetes mellitus without complications; Z79.4 - watermaster (current) use of insulin Status: Acute Assessment and Plan: ACHS fingerstick glucose, expect sugar to be elevated due to steroid use. (6) COPD (chronic obstructive pulmonary disease): Code(s): J44.9 - Chronic obstructive pulmonary disease, unspecified Status: Acute Assessment and Plan: On room air at this time. (7) Pneumonia: Code(s): J18.9 - Pneumonia, unspecified organism Status: Acute Assessment and Plan: On azithromycin and ceftriaxone. Send pneumococcal antigen and Legionella antigen. (8) Hypokalemia: Code(s): E87.6 - Hypokalemia Status: Acute Assessment and Plan: Potassium 3.0 on admit, 3.1 this morning. Oral replacement ordered. Magnesium level drawn and found to be low. Ordered IV magnesium as well. (9) Hypomagnesemia: Code(s): E83.42 - Hypomagnesemia Status: Acute Assessment and Plan: Potassium 3.0 on admit, 3.1 this morning. Oral replacement ordered. Magnesium level drawn and found to be low. Ordered IV magnesium as well. DS: Summary Hospital Course Reason for hospitalization: Weakness, UTI, Pneumonia, Covid Hospital Course: Patient while here was treated with IV antibiotics for the pneumonia and UTI, IV fluids for the acute kidney injury and to flush her system. Mrs Canchola has declined intermediate but will allow home health. She recieved IV steroids, breathing treatment. Patient was seen by physical therapy recommendation is that she is in need of of some assistance and more therapy. Advised she would do well at home and she is in need of a WW at home. Patient will go home on oral antibiotic and steroids with need to follow up with her pcp. Patient lab have trended down and vitals when I saw rick t140/90-78/18/97.9 Patient declines pain at this time and she is ready for discharge. Time Spent with Patient Time attestation: Total time spent providing and/or coordinating discharge services: Exam Narrative: GENERAL: Appears stated age, obese, in no acute distress. HEAD: Normocephalic, atraumatic. ENT:? Mucous membranes moist. CHEST: Clear to auscultation.? No respiratory distress. HEART: Regular rate and rhythm. ? Normal peripheral pulses. ABDOMEN: Soft, nontender, nondistended. EXTREMITIES: Normal range of motion. No peripheral edema. Pain to palpation of feet and ankles SKIN: Warm dry normal color NEURO: Alert and oriented x3. PSYCH: Normal mood and affect Discharge Plan Discharge Attending physician on discharge: Isauro Parra Consulting providers: Romel Sin; Titi Oviedo
[2023-10-27 05:41] LABS: Basophils Absolute Auto 0.02 K/mm3 (0.00-0.10); Basophils Percent Auto 0.2 % (0.0-1.0); Hemoglobin 13.4 g/dL (11.7-13.8); Immature Granulocyte Absolute 0.07 K/mm3 (0.00-0.00); Immature Granulocyte Percent A 0.5 % (0.0-0.0); Immature Platelet Fraction Pct 7.3 % (1.0-7.0); Lymphocytes Absolute Auto 1.33 K/mm3 (1.10-4.50); Lymphocytes Percent Auto 10.3 % (18.0-42.0); Mean Corpuscular HGB Conc 32.7 g/dL (32.0-36.0); Mean Corpuscular Hemoglobin 28.1 pg (27.0-31.0); Mean Platelet Volume 13.3 fl (9.2-11.8); Monocytes Absolute Auto 0.66 K/mm3 (0.10-0.90); Monocytes Percent Auto 5.1 % (2.0-11.0); Neutrophils Absolute Auto 10.9 K/mm3 (1.7-7.2); Neutrophils Percent Auto 83.9 % (50.0-70.0); Platelet Count Result 218 K/mm3 (150-420); Red Blood Count 4.77 M/mm3 (4.20-5.40); Red Cell Distribution Width 15.4 % (11.6-14.4); White Blood Count 12.9 K/mm3 (4.8-10.8)
[2023-10-27 06:11] LABS: Hemoglobin A1C 6.1 % (<5.7)
[2023-10-27 06:21] LABS: Alanine Aminotransferase 23 U/L (14-59); Albumin Level 2.6 g/dL (3.4-5.0); Alkaline Phosphatase 83 U/L (46-116); Anion Gap 11 mmol/L (8-16); Aspartate Amino Transferase 10 U/L (15-37); Bilirubin,Total 0.4 mg/dL (0.00-1.00); Blood Urea Nitrogen 33 mg/dL (7-18); Carbon Dioxide 26 mmol/L (21-32); Chloride 102 mmol/L (98-108); Estimated CRCL calculation 27 ml/min; Estimated Glomerular Filt Rate 25; Glucose 225 mg/dL (70-99); Magnesium 1.8 mg/dL (1.8-2.4); Osmolality Calculated 302 mOsm/kg (285-295); Potassium 3.4 mmol/L (3.5-5.1); Sodium 139 mmol/L (136-145)
[2023-10-27 07:56] LABS: Glucose Point of Care 193 mg/dl (65-105)
[2023-10-27 08:00] VITALS: BP 180/100; PULSE 82; RESP 14; TEMP 36.5; O2SAT 95
[2023-10-27] MEDS: FUROSEMIDE 20 MG TABLET PO (09:15)
[2023-10-27] MEDS: AZITHROMYCIN 500 MG/NS 250 ML 500 MG/250 ML BAG 250 MG IVPB (09:15)
[2023-10-27] MEDS: OMEGA 3 POLYUNSAT FATTY ACIDS 1 GM CAP PO (09:15)
[2023-10-27] MEDS: cefTRIAXone 1 GM VIAL IM (12:02)
[2023-10-27] MEDS: LIDOCAINE HCL 1% LOCAL INJ 10 ML VIAL 2.1 ML XX (12:02)
[2023-10-27 12:08] LABS: Glucose Point of Care 237 mg/dl (65-105)
[2023-10-27] MEDS: INSULIN HUMAN LISPRO (*BKC) 1,000 UNITS/10 ML VIAL SUB-Q (12:09)
--- NOTE | 2023-10-27 13:35 | PC.NURSE ---
Pt discharged home. Pt's son picked her up at the hospital. VSS, discharge instructions given to pt. New medication instructions given, follow up appointment instructions given.
--- NOTE | 2023-10-29 08:21 | PC.NURSE ---
Discharge call back attempted, no answer
--- NOTE | 2023-10-29 15:22 | PCCCNOTE ---
Called referral to [facility] for senior services at home for Jesika.
[2023-10-30 20:45] LABS: Pneumococcal Antigen Urine Not Detected (Not Detected)
[2023-10-31 03:05] LABS: Legionella pneumophila Ag Ur Not Detected (Not Detected)
--- NOTE | 2023-10-31 08:47 | PC.NURSE ---
Discharge call back attempted, no answer
--- NOTE | 2023-11-01 09:28 | PC.NURSE ---
Unable to contact for follow up call
[2023-11-05 08:18] LABS: Glucose Point of Care 389 mg/dl (65-105)
[2023-11-05 08:18] LABS: Glucose Point of Care 230 mg/dl (65-105)
== END 2023-10-27 13:30 | disposition home or self-care (01) | DRG 177 ==
LOC: CHSED 09:47 → CHS2ND 11:49
PROVIDERS: Nurse Practitioner; Nurse Practitioner Family; Admitting Provider Internal Medicine; Emergency Provider Family Medicine; PCP Family Medicine; Visit Provider Internal Medicine
DX: U07.1 COVID-19 (principal); J18.9 Pneumonia, unspecified organism; N39.0 Urinary tract infection, site not specified; J44.0 Chronic obstructive pulmonary disease with (acute) lower respiratory infection; N18.4 Chronic kidney disease, stage 4 (severe); I12.9 Hypertensive chronic kidney disease with stage 1 through stage 4 chronic kidney disease, or unspecified chronic kidney disease; E87.6 Hypokalemia; E11.22 Type 2 diabetes mellitus with diabetic chronic kidney disease
CPT/HCPCS: 36415; 71045; 78580; 80048; 80053; 81001; 82010; 82948; 83036; 83690; 83735; 83880; 85025; 85055; 85380; 87086; 87088; 87449; 87899; 93005; 94640; 97161; 97165; A9270; A9540; G0378; J0456; J0696; J1100; J1650; J1815; J1940; J2930; J3475

== ENCOUNTER 2023-11-02 11:48 | Outpatient (CLI) | payer MEDICARE, SELFPAY ==
[2023-11-02 12:44] LABS: Albumin Level 2.7 g/dL (3.4-5.0); Anion Gap 10 mmol/L (8-16); Blood Urea Nitrogen 35 mg/dL (7-18); Calcium 8.7 mg/dL (8.5-10.1); Carbon Dioxide 26 mmol/L (21-32); Chloride 105 mmol/L (98-108); Estimated Glomerular Filt Rate 24; Glucose 114 mg/dL (70-99); Magnesium 1.6 mg/dL (1.8-2.4); Osmolality Calculated 301 mOsm/kg (285-295); Phosphorus 2.9 mg/dL (2.6-4.7); Potassium 3.7 mmol/L (3.5-5.1); Sodium 141 mmol/L (136-145)
== END 2023-11-02 11:49 | disposition home or self-care (01) ==
LOC: CHSLAB 11:50
PROVIDERS: PCP Family Medicine; Visit Provider Internal Medicine Nephrology
DX: E87.6 Hypokalemia (principal)
CPT/HCPCS: 36415; 80069; 83735

== ENCOUNTER 2023-11-13 10:40 | Emergency (ER) | payer MEDICARE, SELFPAY ==
[2023-11-13] VITALS (82 sets, daily range): BP systolic 98–186; BP diastolic 55–110; PULSE 81–103; RESP 12–35; TEMP 36.3–36.8; O2SAT 91–100
--- NOTE | ~2023-11-13 | CT_ITS ---
EXAMINATION: CT brain wo con DATE: 11/13/2023 13:19 INDICATION: Fall. TECHNIQUE: Computed tomography (CT) of the head was performed without intravenous contrast. The mA wa s adjusted according to patient size. Iterative reconstruction technique was employed. The dose-lengt h product was 681.00 mGy-cm. COMPARISON: None FINDINGS: There are scattered areas of low attenuation in the cerebral white matter. There is a 4.1 x 4.2 cm calcified extra-axial mass at the inferior aspect of right middle cranial fossa, consistent w ith a meningioma. There is adjacent vasogenic edema. There is no acute ischemic infarct or intracrani al hemorrhage. There is 2 mm leftward midline shift. The ventricles are normal in size. There are lik rose mary changes of ocular lens replacement surgeries. There is mild mucosal thickening in the paranasal s inuses. The mastoid air cells are normal. IMPRESSION: 1. 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 2. Moderate nonspecific cerebral white matter disease, which likely represents chronic small vessel i schemic disease. Reviewed, dictated and finalized at location A. NSTONE POLISHER OPERATOR IMPRESSION: 1. 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 2. Moderate nonspecific cerebral white matter disease, which likely represents chronic small vessel ischemic disease.
--- NOTE | 2023-11-13 11:04 | ED.FALL ---
HPI - Fall General Chief Complaint: Fall Stated Complaint: fall Time Seen by Provider: 11/13/23 11:04 Source: patient Mode of arrival: ambulatory Limitations: no limitations History of Present Illness HPI Narrative: 73-year-old female with a history of ex smoking many years ago, hypertension, diabetes mellitus, dyslipidemia, breast CA status post lumpectomy, CKD, COPD, CAD status post stent in 2003 and subsequently 2021, arthritis, kidney stones, gallstones slid off her chair and fell on the floor. No head injury injury. No loss of consciousness. she stayed on the floor all night as she was not strong enough to get up on her own. See subsequently crawled and called EMS. EMS did not note any injuries or change in consciousness. They brought her to the ER. The patient is hemodynamically stable. She is alert and oriented without any complaints. MD complaint: fall Onset (ago): hour(s) ( 12 hours ago) Fall from: chair Fall witnessed: no Place fall occurred: home Loss of consciousness: none Prolonged down time: yes Symptoms prior to fall: none Context: tripped/slipped Location of injury: back Quality: aching Associated symptoms (after fall): denies and unable to walk Related Data Home Medications Medication Instructions Recorded Confirmed pantoprazole 40 mg tablet,delayed 40 mg PO HS 01/07/20 11/13/23 release atorvastatin 80 mg tablet 80 mg PO HS 08/24/20 11/13/23 cholecalciferol (vitamin D3) 50 50 mcg PO HS 02/15/21 11/13/23 mcg (2,000 unit) capsule icosapent ethyl 1 gram capsule 1 g PO BID 10/23/23 11/13/23 glucagon 3 mg/actuation nasal spray 3 mg intranasal ONCE PRN 10/25/23 11/13/23 Hypoglycemia metoprolol tartrate 25 mg tablet 12.5 mg PO BID 11/11/23 11/13/23 Allergies Allergy/AdvReac Type Severity Reaction Status Date / Time hydrocodone Allergy Severe rash Verified 11/13/23 10:46 adhesive tape Allergy Unknown rash Verified 11/13/23 10:46 cefdinir Allergy Unknown rash Verified 11/13/23 10:46 peach Allergy Unknown throat Verified 11/13/23 10:46 closes,Anaphylactic Shock prochlorperazine Allergy Unknown Verified 11/13/23 10:46 adhesive AdvReac Intermediate TAPE= RASH Verified 11/13/23 10:46 DYE USED FOR CLOTHING Allergy Unknown SWELLING, Uncoded 11/13/23 10:46 INFECTION FROM DYE Review of Systems Review of Systems: All systems reviewed & are unremarkable except as noted in HPI and below ROS unobtainable: Yes unobtainable due to endotracheal tube and unobtainable due to medical condition Constitutional: Constitutional: Reports as per HPI, Reports no additional constitutional complaints and Reports weakness Eyes: Eyes: Reports as per HPI and Reports no additional eye complaints ENT: Reports system reviewed and no additional complaints, except as documented and Reports as per HPI Cardiovascular: Cardiovascular: Reports as per HPI and Reports no additional cardiovascular complaints Respiratory: Respiratory: Reports as per HPI and Reports no additional respiratory complaints Gastrointestinal: Gastrointestinal: Reports as per HPI and Reports no additional gastrointestinal complaints Genitourinary: Genitourinary: Reports no additional female genitourinary complaints and Reports as per HPI Musculoskeletal: Musculoskeletal: Reports no additional musculoskeletal complaints and Reports as per HPI Integumentary/Breasts: Skin/Breast: Reports system reviewed and no additional complaints, except as docu and Reports as per HPI Comments: superficial bruising over the right CVA angle Neurologic: Reports system reviewed and no additional complaints, except as documented and Reports as per HPI Psychiatric: Psychiatric: Reports no additional psychiatric complaints and Reports as per HPI Endocrine: Endocrine: Reports excessive sweating Hematologic/Lymphatic: Hematologic/Lymphatic: Reports no additional hematologic/lymphatic complaints and Reports as per HPI Allergic/Immunologic: Aller
--- NOTE | 2023-11-13 11:20 | ECG_ITS ---
Measurements Intervals [place] Rate: 82 P: 66 OK: 212 QRS: -21 QRSD: 102 T: -33 QT: 407 QTc: 478 Interpretive Statements SINUS RHYTHM WITH FIRST DEGREE AV BLOCK VENTRICULAR TRIGEMINY LEFT VENTRICULAR HYPERTROPHY WITH ST-T CHANGE BORDERLINE R WAVE PROGRESSION, ANTERIOR LEADS INFERIOR INFARCT, AGE INDETERMINATE BORDERLINE T WAVE ABNORMALITY- LATERAL LEADS BASELINE ARTIFACT- I, II, III, AVR, AVL, AVF, V2-V6 ABNORMAL ECG COMPARED TO ECG 10/25/2023 09:43:52 VENTRICULAR TRIGEMINY NOW PRESENT FIRST DEGREE AV BLOCK NOW PRESENT Electronically Signed On 11-13-2023 11:43:20 MARINE EQUIPMENT RESEARCH ENGINEER by Titi Oviedo D.O.
[2023-11-13 11:43] LABS: Basophils Absolute Auto 0.04 K/mm3 (0.00-0.10); Basophils Percent Auto 0.4 % (0.0-1.0); Eosinophils Absolute Auto 0.01 K/mm3 (0.02-0.50); Eosinophils Percent Auto 0.1 % (1.0-6.0); Hematocrit 46.4 % (35.0-42.0); Hemoglobin 14.9 g/dL (11.7-13.8); Immature Granulocyte Absolute 0.04 K/mm3 (0.00-0.00); Immature Granulocyte Percent A 0.4 % (0.0-0.0); Lymphocytes Absolute Auto 1.09 K/mm3 (1.10-4.50); Lymphocytes Percent Auto 9.8 % (18.0-42.0); Mean Corpuscular HGB Conc 32.1 g/dL (32.0-36.0); Mean Corpuscular Hemoglobin 27.5 pg (27.0-31.0); Mean Corpuscular Volume 85.8 fL (78.0-102.0); Mean Platelet Volume 11.9 fl (9.2-11.8); Monocytes Absolute Auto 0.82 K/mm3 (0.10-0.90); Monocytes Percent Auto 7.4 % (2.0-11.0); Neutrophils Absolute Auto 9.1 K/mm3 (1.7-7.2); Neutrophils Percent Auto 81.9 % (50.0-70.0); Platelet Count Result 207 K/mm3 (150-420); Red Blood Count 5.41 M/mm3 (4.20-5.40); Red Cell Distribution Width 16.1 % (11.6-14.4); White Blood Count 11.1 K/mm3 (4.8-10.8)
[2023-11-13 12:03] LABS: Lactic Acid Reflex 1.9 mmol/L (0.4-2.0)
--- NOTE | 2023-11-13 12:05 | PC.NURSE ---
PT UP TO BEDSIDE COMMODE WITH MINIMAL ASSISTANCE. PT RETURNED TO STRETCHER, VSS PER MONITOR. PT DENIES ANY NEEDS OR COMPLAINTS. WILL CONTINUE TO MONITOR.
[2023-11-13 12:06] LABS: Appearance Urine Clear (Clear); Bilirubin Urine Negative (Negative); Blood Urine 2+ (Negative); Color Urine Yellow (Yellow); Glucose Urine UA Negative (Negative); Ketones Urine Negative (Negative); Leukocyte Esterase Ur Negative LEU/UL (Negative); Nitrate Urine Negative (Negative); Protein Urine 3+ (Negative); Specific Grav Ur 1.025 (1.010-1.020); Urobilinogen Urine 0.2 mg/dL (0.2-1.0)
[2023-11-13 12:11] LABS: Alanine Aminotransferase 28 U/L (14-59); Albumin Level 2.9 g/dL (3.4-5.0); Alkaline Phosphatase 89 U/L (46-116); Anion Gap 14 mmol/L (8-16); Aspartate Amino Transferase 41 U/L (15-37); Bilirubin,Total 0.9 mg/dL (0.00-1.00); Blood Urea Nitrogen 27 mg/dL (7-18); Calcium 9.4 mg/dL (8.5-10.1); Carbon Dioxide 27 mmol/L (21-32); Chloride 104 mmol/L (98-108); Estimated CRCL calculation 25 ml/min; Estimated Glomerular Filt Rate 21; Glucose 110 mg/dL (70-99); Osmolality Calculated 306 mOsm/kg (285-295); Potassium 3.1 mmol/L (3.5-5.1); Sodium 145 mmol/L (136-145); Total Protein 7.6 g/dL (6.4-8.2)
[2023-11-13 12:12] LABS: Creatine Kinase 1141 U/L (26-192)
[2023-11-13 12:13] LABS: Troponin I 107.3 ng/L (0.00-60.4)
[2023-11-13 12:22] LABS: Add Urine Microscopic? YES; Bacteria Urine Rare /hpf; Squamous Epithelial Cell Urine Rare /hpf (Few)
[2023-11-13] MEDS: LACTATED RINGERS 500 ML 999 ML IV CONT (13:30)
[2023-11-13] MEDS: POTASSIUM CHLORIDE 20 MEQ ER TABLET PO (13:30)
--- NOTE | 2023-11-13 13:35 | PC.NURSE ---
PT HAS RETURNED FROM CT, BEEN UP TO COMMODE AND RETURNED TO STRETCHER WITH MINIMAL ASSISTANCE. PT DENIES ANY NEEDS OR COMPLAINTS. PT IS WATCHING TV WITHOUT DISTRESS. WILL CONTINUE TO MONITOR.
--- NOTE | 2023-11-13 14:00 | PC.NURSE ---
pt declines going to [place] at this time, reports it is too far from son who lives in [facility].
[2023-11-13 15:12] LABS: Troponin I 70.4 ng/L (0.00-60.4)
--- NOTE | 2023-11-13 16:03 | PC.NURSE ---
NO CHANGE IN PT STATUS. PT IS AWAITING RETURN CALL FROM [facility] AT THIS TIME. WILL CONTINUE TO MONITOR.
--- NOTE | 2023-11-13 16:09 | PC.NURSE ---
PT UP TO COMMODE WITH REPORT OF NEEDING TO HAVE A BM. PT HAS MINIMAL ASSISTANCE WITH TRANSFER. ERP IS SPEAKING WITH [facility] AT THIS TIME. WILL CONTINUE TO MONITOR.
--- NOTE | 2023-11-13 17:35 | PC.NURSE ---
PT IS TALKING ON PHONE TO SON AT THIS TIME. NAD NOTED. PT IS REQUESTING TO SIT IN CHAIR. HOSPITAL BED IN EXAM ROOM REPLACING STRETCHER AT THIS TIME. PT WAS ACCEPTED TO [facility], HOWEVER IS ON A WAIT LIST, APPROX 2 DAYS AT THIS TIME. WILL CONTINUE TO MONITOR. PT ATE ALL OF HER DINNER.
--- NOTE | 2023-11-13 18:16 | PC.NURSE ---
PT WAS UP TO RECLINER IN EXAM ROOM, PT THEN HAD A DIARRHEAL EPISODE. PERICARE PROVIDED. PT IS NOW IN HOSPITAL BED. BARRIER SPRAY HAS BEEN APPLIED MULTIPLE TIMES TODAY. PT TRANSFERS ON HER OWN WITH STANDBY ASSIST. WILL CONTINUE TO MONITOR.
--- NOTE | 2023-11-13 19:12 | PC.NURSE ---
patient report received from LISSY Cardozo. Patient resting on hospital bed. RN monitoring.
--- NOTE | 2023-11-13 19:41 | PC.NURSE ---
patient asleep on hospital bed. nad. RN monitoring.
--- NOTE | 2023-11-13 20:05 | PC.NURSE ---
patient adore Chowdary brought patient belongings for transfer. see belongings list. patient update provided.
--- NOTE | 2023-11-13 21:12 | PC.NURSE ---
patient aware of plan for ED to ED transfer to [facility]. [facility]BA to [facility] at this time per performing arts technicians. patient awaiting EMS transfer.
--- NOTE | 2023-11-13 21:30 | PC.NURSE ---
BG checked and VS updated. pt awaiting EMS.
[2023-11-13 21:31] LABS: Glucose Point of Care 214 mg/dl (65-105)
== END 2023-11-13 22:01 | disposition short-term general hospital (02) ==
PROVIDERS: Emergency Provider Internal Medicine Critical Care Medicine; PCP Family Medicine
DX: R22.0 Localized swelling, mass and lump, head (principal); J44.9 Chronic obstructive pulmonary disease, unspecified; I25.10 Atherosclerotic heart disease of native coronary artery without angina pectoris; E78.5 Hyperlipidemia, unspecified; E11.22 Type 2 diabetes mellitus with diabetic chronic kidney disease; I12.9 Hypertensive chronic kidney disease with stage 1 through stage 4 chronic kidney disease, or unspecified chronic kidney disease; N18.4 Chronic kidney disease, stage 4 (severe); Z85.3 Personal history of malignant neoplasm of breast; Z87.891 Personal history of nicotine dependence; W01.0XXA Fall on same level from slipping, tripping and stumbling without subsequent striking against object, initial encounter; Y92.009 Unspecified place in unspecified non-institutional (private) residence as the place of occurrence of the external cause
CPT/HCPCS: 36415; 70450; 80053; 81001; 82550; 82948; 83605; 84443; 84484; 85025; 93005; 99285; A9270; J7120

== ENCOUNTER 2023-12-25 10:47 | Outpatient (CLI) | payer MEDICARE, SELFPAY ==
--- NOTE | ~2023-12-25 | US_ITS ---
EXAMINATION: US carotid duplex BI DATE: 12/25/2023 11:40 INDICATION: Syncope and collapse TECHNIQUE: Grayscale, color Doppler, and pulsed Doppler images of the cervical carotid arteries were obtained. The degree of vessel stenosis is placed in one of the following categories: normal, <50%, 5 0-69%, >=70% but less than near-occlusion, near-occlusion, or total occlusion. Note that percent sten osis relative to normal distal artery lumen diameter is indirectly measured from velocity measurement s as described by Perez, et al. Radiology 2003; 229:340-346. COMPARISON: None. FINDINGS: RIGHT: The right common carotid artery (CCA) peak systolic velocity (PSV) is 49 cm/s. The right internal car otid artery (ICA) PSV is 48 cm/s. The right ICA end-diastolic velocity (EDV) is 15 cm/s. The right IC A/CCA PSV ratio is 1.0. Grayscale and color Doppler images demonstrate no appreciable plaque or steno sis in the ICA. The external carotid artery (ECA) PSV is 48 cm/s. There is antegrade flow in the righ t vertebral artery. LEFT: The left CCA PSV is 58 cm/s. The left ICA PSV is 60 cm/s. The left ICA EDV is 18 cm/s. The left ICA/C CA PSV ratio is 1.0. Grayscale and color Doppler images demonstrate no appreciable plaque or stenosis in the ICA. The ECA PSV is 63 cm/s. There is antegrade flow in the left vertebral artery. IMPRESSION: 1. No evident atherosclerotic plaque or stenosis in the right internal carotid artery. 2. No evident atherosclerotic plaque or stenosis in the left internal carotid artery. Reviewed, dictated and finalized at location B. IMPRESSION: 1. No evident atherosclerotic plaque or stenosis in the right internal carotid artery. 2. No evident atherosclerotic plaque or stenosis in the left internal carotid a rtery.
== END 2023-12-25 10:48 | disposition home or self-care (01) ==
PROVIDERS: PCP Family Medicine; Visit Provider Internal Medicine Cardiovascular Disease
DX: R55 Syncope and collapse (principal)
CPT/HCPCS: 93880

== ENCOUNTER 2024-02-22 10:48 | Outpatient (CLI) | payer MEDICARE, SELFPAY ==
[2024-02-22 11:28] LABS: Creatinine Urine 32.9 mg/dL; Total Protein Urine Random 96 mg/dL; Ur Ttl Prot Creatinine Ratio 2.92 mg/mg (0-0.20)
[2024-02-22 11:28] LABS: Albumin Level 4.3 g/dL (3.5-5.1); Anion Gap 8 mmol/L (4-12); Blood Urea Nitrogen 41 mg/dL (7-17); Calcium 9.8 mg/dL (8.4-10.2); Carbon Dioxide 28 mmol/L (22-30); Chloride 108 mmol/L (98-107); Estimated Glomerular Filt Rate 22; Glucose 157 mg/dL (65-110); Phosphorus 4.2 mg/dL (2.5-4.5); Potassium 3.9 mmol/L (3.4-5.0); Sodium 144 mmol/L (137-145)
== END 2024-02-22 10:49 | disposition home or self-care (01) ==
LOC: ANHLAB 10:51
PROVIDERS: PCP Family Medicine; Visit Provider Internal Medicine Nephrology
DX: R80.9 Proteinuria, unspecified (principal); E11.22 Type 2 diabetes mellitus with diabetic chronic kidney disease; I12.9 Hypertensive chronic kidney disease with stage 1 through stage 4 chronic kidney disease, or unspecified chronic kidney disease; N18.4 Chronic kidney disease, stage 4 (severe)
CPT/HCPCS: 36415; 80069; 82570; 84156

== ENCOUNTER 2024-06-30 10:32 | Outpatient (CLI) | payer MEDICARE, SELFPAY ==
--- NOTE | ~2024-06-30 | MR_ITS ---
EXAMINATION: MR brain/brain stem wo/w con DATE: 06/30/2024 11:40 INDICATION: Meningioma. TECHNIQUE: Magnetic resonance imaging (MRI) of the brain and brainstem was performed without and with 20 mL MultiHance intravenous contrast. COMPARISON: Head CT 11/13/2023 FINDINGS: Anterior inferior to right temporal lobe, there is a 4.5 x 3.9 x 3.6 cm enhancing extra-axi al mass with calcifications, consistent with a meningioma. There are scattered areas of nonspecific i ncreased T2-weighted signal intensity in the cerebral white matter. There is no acute ischemic infarc t. No intracranial hemorrhage. The ventricles are normal in size. There are likely changes of ocular lens replacement surgeries. There is mild mucosal thickening in the ethmoid sinuses. The mastoid air cells are normal. IMPRESSION: 1. 4.5 cm right sphenoid wing meningioma, stable from 11/13/2023. 2. Moderate nonspecific cerebral white matter disease, which likely represents chronic small vessel i schemic disease. Reviewed, dictated and finalized at location A. IMPRESSION: 1. 4.5 cm right sphenoid wing meningioma, stable from 11/13/2023. 2. Moderate nonspecific cerebral white matter disease, which likely represents chronic small vessel ischemic disease.
== END 2024-06-30 10:33 | disposition home or self-care (01) ==
PROVIDERS: PCP Family Medicine
DX: D32.0 Benign neoplasm of cerebral meninges (principal); R90.82 White matter disease, unspecified
CPT/HCPCS: 70553; A9577

== ENCOUNTER 2024-07-04 08:59 | Outpatient (CLI) | payer MEDICARE, SELFPAY ==
[2024-07-04 09:56] LABS: Albumin Level 4.3 g/dL (3.5-5.1); Anion Gap 11 mmol/L (4-12); Blood Urea Nitrogen 35 mg/dL (7-17); Calcium 9.4 mg/dL (8.4-10.2); Carbon Dioxide 26 mmol/L (22-30); Chloride 104 mmol/L (98-107); Estimated Glomerular Filt Rate 23; Glucose 145 mg/dL (65-110); Phosphorus 2.7 mg/dL (2.5-4.5); Potassium 3.6 mmol/L (3.4-5.0); Sodium 141 mmol/L (137-145)
[2024-07-04 10:08] LABS: Creatinine Urine 102.8 mg/dL
[2024-07-04 10:12] LABS: Parathyroid Intact 61.9 pg/mL (14.5-75.2)
[2024-07-04 10:42] LABS: Total Protein Urine Random 426 mg/dL; Ur Ttl Prot Creatinine Ratio 4.14 mg/mg (0-0.20)
[2024-07-04 10:55] LABS: Vitamin D 25 Hydroxy 41.8 ng/mL
== END 2024-07-04 09:00 | disposition home or self-care (01) ==
LOC: ANHLAB 09:04
PROVIDERS: PCP Family Medicine; Visit Provider Internal Medicine Nephrology
DX: R80.9 Proteinuria, unspecified (principal); I12.9 Hypertensive chronic kidney disease with stage 1 through stage 4 chronic kidney disease, or unspecified chronic kidney disease; E11.22 Type 2 diabetes mellitus with diabetic chronic kidney disease; N18.4 Chronic kidney disease, stage 4 (severe); N25.81 Secondary hyperparathyroidism of renal origin; E55.9 Vitamin D deficiency, unspecified
CPT/HCPCS: 36415; 80069; 82306; 82570; 83970; 84156

== ENCOUNTER 2024-10-31 10:41 | Outpatient (CLI) | payer MEDICARE, SELFPAY ==
[2024-10-31 11:30] LABS: Basophils Absolute Auto 0.1 K/mm3 (0.0-0.1); Basophils Percent Auto 0.8 % (0.2-1.2); Eosinophils Absolute Auto 0.5 K/mm3 (0-0.3); Eosinophils Percent Auto 4.8 % (0-4.4); Hematocrit 44.5 % (37.0-47.0); Immature Granulocyte Absolute 0.08 K/mm3 (0.00-0.031); Immature Granulocyte Percent A 0.7 % (0-0.5); Lymphocytes Absolute Auto 1.51 K/mm3 (0.9-3.2); Lymphocytes Percent Auto 13.9 % (18.3-44.2); Mean Corpuscular HGB Conc 31.5 g/dl (32-36); Mean Corpuscular Hemoglobin 28.4 pg (26-34); Mean Corpuscular Volume 90.3 fl (80-100); Mean Platelet Volume 12.1 fl (7.4-10.4); Monocytes Absolute Auto 0.6 K/mm3 (0.1-0.6); Monocytes Percent Auto 5.5 % (2.6-8.5); Neutrophils Absolute Auto 8.1 K/mm3 (1.3-6.7); Neutrophils Percent Auto 74.3 % (45.5-73.1); Platelet Count Result 183 k/mm3 (150-375); Red Blood Count 4.93 M/mm3 (4.2-5.4); Red Cell Distribution Width 15.3 % (11.5-14.5); White Blood Count 10.9 K/mm3 (4.5-10.0)
[2024-10-31 11:43] LABS: Anion Gap 9 mmol/L (4-12); Blood Urea Nitrogen 41 mg/dL (7-17); Calcium 10.1 mg/dL (8.4-10.2); Carbon Dioxide 27 mmol/L (22-30); Chloride 106 mmol/L (98-107); Estimated Glomerular Filt Rate 21; Glucose 163 mg/dL (65-110); Potassium 4.1 mmol/L (3.4-5.0); Sodium 142 mmol/L (137-145)
== END 2024-10-31 10:42 | disposition home or self-care (01) ==
LOC: ANHLAB 10:43
PROVIDERS: PCP Family Medicine; Visit Provider Internal Medicine Cardiovascular Disease
DX: I25.10 Atherosclerotic heart disease of native coronary artery without angina pectoris (principal)
CPT/HCPCS: 36415; 80048; 85025

== ENCOUNTER 2024-12-05 10:07 | Outpatient (CLI) | payer MEDICARE, SELFPAY ==
--- OUTSIDE RECORDS SUMMARY | 2024-12-05 10:11 | XMS_ITS | Clinical Summary ---
Author Organization [facility] Address [address] [place] [address] Phone Care Team Providers Care Multiple Drum Sander Name Role Phone Lorena Anthony MD Primary Care Provider [phone] Allergies Active Allergy Reactions Criticality Noted Date Comments Flavoring Agent (Non-Screening) Anaphylaxis High 01/2014 Prochlorperazine Anaphylaxis High 07/05/2019 Medications Medication Sig Dispensed Refills Start Date End Date Status aspirin (ST HAILEE) 81 MG EC tablet 1 tab/cap qday 10/10/2014 Active nitroglycerin (NITROSTAT) 0.4 MG SL tablet 0.4 mg 09/29/2014 Active fenofibrate (TRICOR) 145 MG tablet Take 145 mg by mouth daily Active EPINEPHrine (EPIPEN 2-LAYLA) 0.3 MG/0.3ML injection syringe inject 0.3 milliliter by intramuscular route once as needed for anaphylaxis 08/19/2014 Active Cholecalciferol (VITAMIN D3) 400 units capsule take 1 by Oral route once 02/17/2016 Active Blood Glucose Monitoring Suppl (ONETOUCH VERIO) w/Device kit 11/19/2019 Active ONETOUCH VERIO test strip 11/19/2019 Active atorvastatin (LIPITOR) 80 MG tablet 03/16/2020 Active famotidine (PEPCID) 20 MG tablet 02/11/2020 Active metoprolol tartrate (LOPRESSOR) 25 MG tablet 02/11/2020 Active pantoprazole (PROTONIX) 40 MG EC tablet 03/22/2020 Active potassium citrate (UROCIT-K) 10 MEQ (1080 MG) CR tablet 03/16/2020 Active VASCEPA 1 g capsule 03/28/2020 Active NIFEdipine XL (PROCARDIA XL) 30 MG 24 hr tablet 04/12/2020 Active furosemide (LASIX) 20 MG tablet 05/10/2021 Active TRUEplus Pen [place] 31G X 8 MM misc 11/02/2021 Active calcitriol (ROCALTROL) 0.25 MCG capsule TAKE ONE CAPSULE BY MOUTH THREE TIMES A WEEK SATURDAY/SATURDAY/Sat 12 capsule 6 06/24/2022 Active Brilinta 90 MG tablet 04/28/2022 Active Active Problems Problem Noted Date Diagnosed Date Obstructive sleep apnea syndrome 09/12/2021 Proteinuria 07/05/2019 Calculus of kidney 05/29/2017 Coronary atherosclerosis 03/20/2017 Hypertensive chronic kidney disease with stage 1 through stage 4 chronic kidney disease, or unspecified chronic kidney disease 08/23/2015 Chronic kidney disease, stage 4 (severe) 015 Type 2 diabetes mellitus wit h other diabetic kidney complication 10/10/2014 Coronary arteriosclerosis in [place] artery 08/19 Overview (07/05/2019): Overview: CAD (coronary atherosclerotic disease) Gastroesophageal reflux disease 08/19/2014 Overview (07/05/2019): Overview: GERD (gastroesophageal reflux disease) Diabetes mellitus 08/19/2014 Overview (07/05/2019): Overview: Diabetes Obesity 12/09/2013 Overview (07/05/2019): Overview: Obesity Hypertension 08/21/2012 Overview (07/05/2019): Overview: Hypertension Hyperlipidemia 03/12/2012 Overview (07/05/2019): Converted unresolved ICD9, potential mismatch. Overview: Hyperlipidemia Immunizations Name Administration Dates Next Due Influenza Split High Dose Pr eservative Free IM 07/18/2013 Influenza TIV (IM) 08/24/2015, 5,08/21/2012,09/29 Influenza, Injectable, Quadrivalent 07/26/2020,1 Influenza, Quadrivalent 08/07/2010 Pneumococcal Polysaccharide 09/21/2006, 2 Sars-cov-2, Unspecified 02/04/2021 Td, Unspecified 09/11/2004 Tdap 12/20/2012 Zoster 12/20/2012 Family History Medical History Relation Comments Kidney disease Neg Hx Kidney stone Neg Hx Social History Tobacco Use Types Packs/Day Years Used Date Smoking Tobacco: Never Smokeless Tobacco: Never Alcohol Use Standard Drinks/Week Comments Yes 0 (1 standard drink = 0.6 oz pure alcohol) Alcoholic Drinks/day: 2 drinks/month Sex and Gender Information Value Date Recorded Sex Assigned at Female 06/05/2021 2:54 PM MDT Gender Identity Female 06/05/2021 2:54 PM MDT Sexual Orientation Straight 06/05/2021 2: 54 PM MDT Last Filed Vital Signs Vital Sign Reading Time Taken Comments Blood Pressure 134/78 03/07/2022 1:09 PM CDT Pulse - - Temperature 36.8 C (98.3 F) 03/07/2022 1:09 PM CDT Respiratory Rate 18 03/07/2022 1:09 PM CDT Oxygen Saturation - - Inhaled Oxygen Concentration - - Weight 125 kg (275 lb) 03/07/2022 1:09 PM CDT Height 152.4 cm (5') 03/07/2022 1:09 PM CDT Body Mass Index 53.71 03/07/2022 1:09 PM CDT Plan of Treatment Health Maintenance Due Date Last Done Comments Pneumococcal PPSV23/PCV13 65 + Years / Low and Medium Risk (2 of 4 - PCV) 2013 09/21/2006, 03/03/1992 COVID-19 Vaccine (3 - 2023-2 5 season) 2024 05/03/2021, 04/12/2021, 02/04/2021 Influenza Vaccine (#1) 2024 5, 10/20/2014, 08/21/2012, Additional history exists Care Teams Multiple Drum Sander Relationship Specialty Start Date End Date Lorena Anthony MD [address] [facility] [address] [place] [address] PCP - General Internal Medicine 04/27/20
--- OUTSIDE RECORDS SUMMARY | 2024-12-05 10:11 | XMS_ITS | Clinical Summary ---
Author Organization [facility] Address [address] [place] [address] Care Team Providers Care [employer] Name Role Phone James Candelariah Primary Care Provider Allergies Active Allergy Reactions Criticality Noted Date Comments Adhesive Rash Medium Apricot Anaphylaxis,Rash High 04/23/2022 Other Rash Medium 04/23/2022 Clothing dye Bosque Anaphylaxis,Rash High 04/23/2022 Prochlorperazine Anaphylaxis High Medications cholecalciferol (VITAMIN D3) 400 unit capsule take 1 by Oral route once 0 0 02/17/20 16 Active TRUEplus Pen Needle 31 gauge x 5/16 needle 09/23/20 21 Active calcitRIOL (ROCALTROL) 0.25 mcg capsule 1 capsule (0.25 mcg total) as directed -- take in the AM 12/27/19 22 Active insulin regular U-500 (HumuLIN R) 500 unit/mL CONCENTRATED vial for injectionIndicat ions:Diabetes Mellitus with Severe Insulin Resistance Inject under the skin as directed 100 Units at breakfast, 55 units at lunch, 95 units at dinner, do not take any if blood sugar less than 120. 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) Take 1 tablet (81 mg total) by mouth daily 11/21/19 24 Active nitroglycerin (Nitrostat) 0.4 mg SL tabletIndication s:Coronary artery disease involving yurok coronary artery of yurok heart without angina pectoris Place 1 tablet (0.4 mg total) under the tongue every 5 (five) minutes as needed for chest pain 25 tablet 3 05/04/[address] (PROTONIX) 40 mg EC tablet TAKE ONE TABLET BY MOUTH TWICE A DAY 60 tablet 11 06/16/20 24 Active metoprolol tartrate (LOPRESSOR) 25 mg immediate release tabletIndication s:Coronary artery disease involving yurok coronary artery of yurok heart without angina pectoris TAKE HALF A TABLET BY MOUTH TWICE A DAY 90 tablet 1 09/14/20 24 Active clopidogreL (PLAVIX) 75 mg tablet Take 1 tablet (75 mg total) by mouth daily 30 tablet 11/02/19 25 026 Active Vascepa 1 gram capsule Take 1 capsule (1 g total) by mouth 2 (two) times a day 60 capsule 11/16/19 25 026 Active cloNIDine (CATAPRES) 0.1 mg tablet TAKE ONE TABLET BY MOUTH TWICE A DAY 180 tablet 3 11/30/19 25 Active atorvastatin (LIPITOR) 80 mg tabletIndication s:Hyperlipidemia associated with type 2 diabetes mellitus (HCC),Coronary artery disease involving yurok coronary artery of yurok heart without angina pectoris TAKE ONE TABLET BY MOUTH DAILY 90 tablet 3 11/30/19 25 Active cloNIDine (CATAPRES) 0.1 mg tablet Take 1 tablet (0.1 mg total) by mouth 2 (two) times a day 180 tablet 3 11/21/19 24 025 Discontinued icosapent ethyL (Vascepa) 1 gram capsule TAKE ONE CAPSULE BY MOUTH TWICE A DAY 60 capsule 12/31/19 24 025 Discontinued(Ot her) atorvastatin (LIPITOR) 80 mg tabletIndication s:Hyperlipidemia associated with type 2 diabetes mellitus (HCC),Coronary artery disease involving yurok coronary artery of yurok heart without angina pectoris TAKE ONE TABLET BY MOUTH DAILY 90 tablet 3 03/04/20 24 025 Discontinued Active Problems Problem Noted Date Diagnosed Date Syncope and collapse 11/21/2023 Anemia 05/21/2022 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, unspecified vessel or lesion type, unspecified whether yurok or transplanted heart 04/27/2022 Atypical chest pain 03/20/2022 Morbid (severe) obesity due to excess calories 0 03/20/2022 Body mass index 40.0-44.9, adult ([facility]) 03/20 Morbid obesity 09/12/2021 NIMA (obstructive sleep apnea) 09/12/2021 Systolic ejection murmur 06/19/2019 Coronary artery disease of n ative artery of yurok heart with stable angina pectoris 03/20/2017 Hyperlipidemia associated with type 2 diabetes m ellitus 03/20/2017 Atherosclerosis of coronary artery 08/19/2014 Overview (01/18/2017): CAD (coronary atherosclerotic disease) Hypertension associated with diabetes 08/19/2014 Overview (01/18/2017): Hypertension Diabetes mellitus 08/19/2014 Overview (01/18/2017): Diabetes Hyperlipidemia LDL goal <70 08/19/2014 Overview (01/18/2017): Hyperlipidemia Adiposity 08/19/2014 Overview (01/18/2017): Obesity Gastroesophageal reflux disease 08/19/2014 Overview (01/18/2017): GERD (gastroesophageal reflux disease) Encounters Date Type Department Care Team Description 11/30/2024 Telephone [facility] Cardiology [address] [place] [phone] Tom Boland MD 11/16/2024 Telephone [facility] Cardiology [address] [place] [phone] Tom Boland MD 11/02/2024 11:30 AM MANHOLE STRIPPER - 11/02/2024 1:00 PM MANHOLE STRIPPER Surgery [facility] Cardiac Catheterization Lab [id number] [place] [id number] Logan Ceron MD LEFT HEART CATHETERIZATION WITH CORONARY ANGIOGRAPHY AND WITH OR WITHOUT LEFT VENTRICULOGRAM [id number] 11/02/2024 9:10 AM MANHOLE STRIPPER - 11/02/2024 6:46 PM MANHOLE STRIPPER Hospital Encounter [facility] Cardiac Catheterization Lab [id number] [place] [phone] Logan Ceron MD 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, unspecified vessel or lesion type, unspecified whether yurok or transplanted heart (HCC) Discharge Disposition: Discharge to home or self care 10/01/2024 Telephone [facility] Cardiology [address] [place] [address] Tom Boland MD [facility] 09/30/2024 10:15 AM MANHOLE STRIPPER Ancillary Procedure [facility] Cardiology [address] [place] [address] 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) 09/18/2024 2:45 PM MANHOLE STRIPPER Office Visit [facility] Cardiology at [address] [place] [address] Tom Boland MD Hyperlipidemia associated with type 2 diabetes mellitus (HCC) (Primary Dx); Hypertension associated with diabetes (HCC); 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); NIMA (obstructive sleep apnea) from Last 3 Months Immunizations Immunization Administration Dates Next Due Moderna SARS-CoV-2 Monovalent Vaccination (12+ Y RS) 05/03/2021,04/12/2021 Surgical History Surgery Date Site/Laterality Comments BREAST LUMPECTOMY Left CORONARY ANGIOPLASTY WITH STENT PLACEMENT NOSE SURGERY fracture repair CATARACT EXTRACTION Bilateral CYSTOSCOPY W/ URETERAL STENT PLACEMENT x5 Medical History Medical History Date Comments Mass of breast Breast lump; Com ments: JBP 08/19/2014 - Sleep apnea Coronary artery disease FL (myocardial infarction) (HCC) Hypertension Type 2 diabetes mellitus (HCC) PONV (postoperative nausea and vomiting) Cataract Motion sickness CKD (chronic kidney disease) Kidney stone Malignant neoplasm of left breast (HCC) Deafness in right ear Awareness under anesthesia Heart murmur 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, unspecified vessel or lesion type, unspecified whether yurok or transplanted heart (HCC) Chronic pain disorder Brain tumor (benign) (HCC) 12/2023 Family History Medical History Relation Name Comments Cancer Brother 2 Cancer, unknown ; Cause of : Cancer, unknown Melanoma Father 2 Melanoma; Cause of : Melanoma Melanoma Mother 2 Melanoma; Cause of : Melanoma Relation Name Status Comments Brother 1 Brother 2 Father 1 Father 2 Mother 1 Mother 2 Social History Tobacco Use Types Packs/Day Years Used Date Smoking Tobacco: Former Cigarettes Q uit: 1979 Smokeless Tobacco: Never Tobacco Cessation:Counseling Given: Not Answered Alcohol Use Standard Drinks/Week Comments Yes 0 (1 standard drink = 0.6 oz pur e alcohol) Personal Safety Answer Date Recorded Have you ever been in or are you currently in a harmful physical or emotional relationship or is someone making you feel afraid or unsafe? Denies 11/02/2024 Comments Unknown Sex and Gender Information Value Date Recorded Sex Assigned at Not on file Legal Sex Female 3:26 AM MANHOLE STRIPPER Gender Identity Female 05/22/2019 11:23 AM CDT Sexual Orientation Straight 10/24/2021 7: 58 AM MANHOLE STRIPPER Obstetrics History Last Filed Vital Signs Vital Sign Reading Time Taken Comments Blood Pressure 179/69 11/02/2024 6:20 PM MANHOLE STRIPPER Pulse 76 11/02/2024 6:30 PM MANHOLE STRIPPER Temperature 36.6 C (97.9 F) 11/02/2024 6:30 PM MANHOLE STRIPPER Respiratory Rate 24 11/02/2024 6:30 PM MANHOLE STRIPPER Oxygen Saturation 96% 11/02/2024 6:10 PM MANHOLE STRIPPER Inhaled Oxygen Concentration - - Weight 117.7 kg (259 lb 8 oz) 11/02/2024 9:26 AM MANHOLE STRIPPER Height 167.6 cm (5' 6 ) 11/02/2024 9:26 AM MANHOLE STRIPPER Body Mass Index 41.88 11/02/2024 9:26 AM MANHOLE STRIPPER Plan of Treatment Health Maintenance Due Date Last Done Comments Albumin Creatinine Ratio, Urine 1950 Depression Screening 1950 Hepatitis C Screening 1950 Osteoporosis Screening-Bone Density Scan 1950 Dilated Eye Exam 1950 Foot Exam 1950 Hepatitis B Screening 1966 Pneumococcal vaccine 65+ (2 of 2 - PCV) 09/21/2007 09/21/2006, 03/03/1992 Zoster Vaccine (2 of 3) 02/14/2013 12/20/2012 Well Visit 65+ 2013 Hemoglobin A1C 07/31/2017 01/29/2017 eGFR 02/14/2018 02/14/2017, 05/0 12/2016, 01/29/2017 DTaP/Tdap/Td Vaccine (2 - Td or Tdap) 12/20/2022 12/20/2012, 09/11/2004 Covid-19 Vaccine (2023-2 5 season) 2024 11/23/2021, 05/03/2021, 05/03/2021, Additional history exists Influenza Vaccine (#1) 2024 , 07/14/2019, 08/18/2016, Additional history exists Lipid Panel 11/21/2024 11/21/2023, 06/0 04/2022, 03/08/2021, Additional history exists Fall Risk Assessment 11/02/2025 11/02/2024 Breast Cancer Screening-Mammogram Discontinued 12/09/2013, 12/09/2013, 12/06/2012 Medical Devices Implanted Type Area [employer]arcane Research Technician Device Identifier Shelf Expiration Date Model / Serial / Lot Med[employer] Inc Resolute [place] 4mm 2.1-2.7fr 18mm 140cm Rapid Exchange Radiopaque [id number] - [id number] Implanted:Qty: 1 on 04/27/2022 by Logan Ceron MD at [facility] [employer] 01/06/2025 [id number] / / [id number] Med[employer] Resolute [place] 4mm 2.1-2.7fr 18mm 140cm Rapid Exchange Radiopaque [id number] - [id number] Implanted:Qty: 1 on 04/27/2022 by Logan Ceron MD at [facility] [employer] 08/22/2024 [id number] / / [id number] 001 Flexenclosure Angio-Seal Vip 6fr Closere Device [id number] - [id number] Implanted:Qty: 1 on 04/27/2022 by Logan Ceron MD at [facility] [employer] 02/10/2023 [id number] / / [id number] Procedures Procedure Name Priority Date/Time Associated Diagnosis Comments POCT GLUCOSE DEVICE Routine 11/02/2024 2 :57 PM MANHOLE STRIPPER TRLUML BALO ANGIOP 1ST ARTERY S&I [id number] Routine 11/02/2024 2:27 PM MANHOLE STRIPPER 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, unspecified vessel or lesion type, unspecified whether yurok or transplanted heart (HCC) CORONARY OCT, 1ST VESSEL Routine 11/02/2024 2:27 PM MANHOLE STRIPPER 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, unspecified vessel or lesion type, unspecified whether yurok or transplanted heart (HCC) VASCULAR ACCESS US GUIDANCE Routine 11/02/2024 2:27 PM MANHOLE STRIPPER 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, unspecified vessel or lesion type, unspecified whether yurok or transplanted heart (HCC) LEFT HEART CATHETERIZATION WITH CORONARY ANGIOGRAPHY AND WITH AND WITHOUT LEFT VENTRICULOGRAM Routine 11/02/2024 2:27 PM MANHOLE STRIPPER 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, unspecified vessel or lesion type, unspecified whether yurok or transplanted heart (HCC) MODERATE SEDATION FIRST 15MIN 5+ YEAR [id number] 11/02/2024 12:50 PM MANHOLE STRIPPER 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, unspecified vessel or lesion type, unspecified whether yurok or transplanted heart (HCC) POCT GLUCOSE DEVICE Routine 11/02/2024 12:10 PM MANHOLE STRIPPER POCT GLUCOSE DEVICE Routine 11/02/2024 9 :22 AM MANHOLE STRIPPER NM MPI SPECT (REST AND/OR STRESS) MULTIPLE STUDIES Schedule Routine, Read Routine (OP Routine) 09/30/2024 12:18 PM MANHOLE STRIPPER 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) POCT LIPID PANEL Routine 11/21/2023 2:00 PM MANHOLE STRIPPER 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) Hyperlipidemia associated with type 2 diabetes mellitus (HCC) EGFR Routine 02/14/2017 1:23 AM CDT HEMOGLOBIN A1C STAT 01/29/2017 12:02 PM CDT from Last 3 Months or Most Recently Relevant to Health Maintenance Results * POCT glucose (11/02/2024 2:57 PM MANHOLE STRIPPER) Glucose, POC 166 70 - 199 mg/dL Blood 11/02/2024 2:57 PM MANHOLE STRIPPER 11/02/2024 2:57 PM MANHOLE STRIPPER us Logan Ceron MD LAB POCT ORDERABLES - DEVICE Fin al Result Performing Organization Address City/State/ZIP Co in Phone Number CHERYL [address] Department [place] [address] * LEFT HEART CATHETERIZATION WITH CORONARY ANGIOGRAPHY AND WITH AND WITHOUT LEFT VENTRICULOGRAM, VASCULAR ACCESS US GUIDANCE, CORONARY OCT, 1ST VESSEL, TRLUML BALO ANGIOP 1ST ARTERY S&I [id number] (11/02/2024 2:27 PM MANHOLE STRIPPER) Anatomical Region Laterality Modality X-Ray Angiograph y Addenda Addendum by Logan Ceron MD on 11/02/2024 3:07 PM MANHOLE STRIPPER CARDIAC CATHETERIZATION AND INTERVENTION REPORT DATE OF PROCEDURE: 11/02/24 INDICATION FOR PROCEDURE: Atypical chest discomfort, known CAD, abnormal MPI BRIEF CLINICAL HISTORY: Lizzy Falk is a 74 y.o. female with CAD, history of inferior ST-elevation FL status post PCI/stenting of mid RCA at outside hospital in April 2004-intervention report not available; s/p Complex PCI (IVUS guided) - orbital atherectomy (CSI diamondback) of proximal and distal segments of RCA; followed by balloon angioplasty using chocolate balloon, followed by stenting using two 4.0 x 18 mm Medtronic resolute jose zotarolimus eluting stents in the proximal and distal segments of RCA on 04/27/2022; hypertension, diabetes mellitus, CKD, dyslipidemia, morbid obesity, NIMA. Patient referred by Dr. Boland for repeat coronary angiogram to re-evaluate coronary anatomy and rule out InStent restenosis. Patient states that she has been experiencing belching and gas which are somewhat similar to previous symptoms prior to her PCI. MPI from 09/30/2024 reportedly showed LVEF 61%; medium size, [id number] intensity basal inferior, basal inferolateral, mid inferior and mid inferolateral segment partially reversible defect. Gut attenuation was also reported, and patient could not be proned. Benefits and risks of the procedure were discussed with the patient in depth, and informed consent was taken prior to the procedure. Risks of the procedure include but are not limited to vascular complications like groin hematoma, retroperitoneal bleed, vessel perforation; periprocedural FL, cardiac arrhythmias, stroke, contrast induced nephropathy, and . After discussing all the benefits, risks and alternatives, patient was willing to proceed with the procedure. PROCEDURES PERFORMED: Ultrasound-guided right and left radial access Selective left and right common angiogram Percutaneous coronary intervention- A) intravascular ultrasound-IVUS of right coronary artery B) balloon angioplasty of InStent restenosis in the mid right coronary artery using cutting balloon, noncompliant balloon followed by balloon angioplasty using [employer] agent paclitaxel coated balloon Moderate sedation-CPT code 73493 and beyond MODERATE SEDATION: Midazolam 2 mg , Fentanyl 50 mcg, start time 1306 stop time 1427, total direct [id number] monitoring of conscious sedation 81 minutes (CPT 84968) TRAINED OBSERVER: Arlet Silva RN was trained observer for moderate sedation. ACCESS SITE: Right and left radial artery. RCA angiogram was performed through right radial access. There was significant tortuosity in the right brachiocephalic artery and it was difficult to torque the catheters and engaged left coronary system. Therefore, left coronary angiogram and subsequent RCA intervention was performed through left radial access site. PROCEDURE: After obtaining informed consent, patient was brought to the stores laborer and prepped and draped in the usual sterile manner. Time-out and immediate reassessment of the patient was performed. After local anesthesia with lidocaine, right radial artery access was taken with micropuncture needle under ultrasound guidance followed by insertion of a 6 Gabonese sheath. Patient received 5 mg of verapamil, 100 mcg of nitroglycerin through the sheath, and 5000 units of heparin. RCA angiogram was performed using 5 Gabonese JR4 catheter with significant difficulty due to tortuosity in the brachiocephalic artery and some spasm in the right radial artery. In light of this, access was taken in the left radial artery, followed by insertion of a 6 Gabonese sheath. Selective left coronary angiogram was performed using 5 Gabonese JL 3.5 diagnostic catheter. Estimated blood loss was minimal. All specimens removed. The angiographic and other findings, and details of intervention are given below. FINDINGS: LEFT MAIN CORONARY: Large caliber vessel, no significant focal stenosis. LEFT ANTERIOR DESCENDING ARTERY: Medium caliber vessel with mild diffuse disease in the proximal and mid segment. No significant focal stenosis in the diagonal branch. LEFT CIRCUMFLEX ARTERY: Medium caliber vessel, gives rise to smaller caliber OM1 branch and medium to large caliber OM2 branch. Mild plaque in the proximal segment of OM1 branch. RIGHT CORONARY ARTERY: Large caliber, dominant vessel. Diffuse 50-60% InStent restenosis in the mid segment. Distal stent patent. Vessel gives rise to medium caliber PDA and PLV branches. LEFT VENTRICULOGRAM: Not performed HEMODYNAMIC ASSESSMENT: Opening pressure 144/82 mmHg, closing pressure 168/85 mmHg. INTERVENTION REPORT: Given patient's clinical presentation, MPI, and angiographic findings, we proceeded with the intervention on diffuse ISR of mid RCA. RCA was engaged using 6 Gabonese 3DRC guide catheter through left radial access site. Bivalirudin was used for procedural anticoagulation. Patient received aspirin and loading dose of clopidogrel in the stores laborer. The stenosis in the mid RCA was crossed using the 0.014 luge guidewire. Next, IVUS was performed using [employer] Eye nisqually catheter on manual pullback which showed diffuse ISR and intimal hyperplasia in the mid segment. Significant calcification was seen in the RCA. Balloon angioplasty was initially performed using a 4.0 x 10 mm [employer] wolverine cutting balloon, followed by balloon angioplasty using a 4.0 x 20 mm NC balloon at high inflation pressures for optimal vessel preparation. Next, balloon angioplasty was performed using 4.0 x 20 mm [employer] Agent paclitaxel coated balloon inflated up to 30 seconds. The balloon was taken out and angiogram showed mild residual stenosis. No angiographically visible dissection or distal embolization. Radial bands were applied to right and left radial access sites for local hemostasis. Patient tolerated procedure well without any immediate procedural complications. CONCLUSIONS: CAD- A) 50-60% diffuse ISR mid RCA; B) mild diffuse plaque proximal-mid LAD 2. Tortuous right brachiocephalic artery 3. PCI-IVUS, KENO WRITER/RUNNER using cutting balloon, NC balloon followed by balloon angioplasty using 4.0 x 20 mm [employer] AGENT paclitaxel coated balloon. PLAN/RECOMMENDATIONS: Dual antiplatelet therapy with aspirin and clopidogrel, in addition to other medications including high-intensity statin. Risk factor modification. Follow-up with Dr. Boland. Voice recognition software was used to complete this document, therefore, branch general manager variances may occur. Logan Ceron MD, [facility] 11/02/24 Logan Ceron MD CV CARDIAC CATH PROCEDURES Edite d Result - Final * POCT glucose (11/02/2024 12:10 PM MANHOLE STRIPPER) Glucose, POC 184 70 - 199 mg/dL Blood 11/02/2024 12:1 0 PM MANHOLE STRIPPER 11/02/2024 12:10 PM MANHOLE STRIPPER Logan Ceron MD LAB POCT ORDERABLES - DEVICE Fin al Result Performing Organization Address [facility] de Phone Number CHERYL [phone] [address] [facility] [employer] [place] [address] * POCT glucose (11/02/2024 9:22 AM MANHOLE STRIPPER) Glucose, POC 194 70 - 199 mg/dL Blood 11/02/2024 9:22 AM MANHOLE STRIPPER 11/02/2024 9:22 AM MANHOLE STRIPPER Logan Ceron MD LAB POCT ORDERABLES - DEVICE Fin al Result Performing Organization Address [facility] Phone Number [facility] [id number] [facility] [employer] [place] [address] * NM MPI SPECT (Rest and/or Stress) Multiple Studies (09/30/2024 12:18 PM MANHOLE STRIPPER) Anatomical Region Laterality Modality Body N/A Nuclear Medicine 09/30/2024 8:23 AM MANHOLE STRIPPER Narrative 09/30/2024 5:05 PM MANHOLE STRIPPER [facility] Cardiology [address] [facility] [address], [place] [address] [address] [facility] [address], [place] [address] P:[phone] P:[phone] MPI Imaging Report Patient Name: LIZZY FALK A : 1950 Study Date: 09/30/2024 8:23:38 AM Gender: F Tech: GABI JOYCE Location: [facility] Provider: TOM BOLAND Height(Cm): 167.6 BSA: Weight(Kg): 121.6 BMI: 43.29 Order Provider: TOM BOLAND - PHYSICIAN: Referring Physician: Dr. Candelaria. HCG Physician: Negro Boland M.D. Interpreting Physician: Negro Boland M.D. Stress Supervision: Negro Boland M.D. PROCEDURES: Pharmacologic SPECT Report: Myocardial perfusion imaging with Tc99M Sestamibi SPECT at rest and stress post regadenoson (Lexiscan) infusion. INDICATIONS: Hypertension, Diabetes, Family Hx CAD, High Cholesterol, Former Smoker, and I25.118 Atherosclerotic heart disease of yurok coronary artery with other forms of angina pectoris. FINDINGS: Procedural Findings: One day rest/stress was used. Tc99m Sestamibi injected IV at rest was 12.9 millicuries 38.0 millicuries of Tc99M Sestamibi injected IV during Lexiscan stress Lexiscan 0.4mg administered IV over 10 seconds. Patient had no symptoms during stress test. Baseline heart rate was 77 BPM Maximum Heart Rate Achieved was: 100 BPM Baseline blood pressure was 136/70 mmHg Post Stress Blood Pressure was 132/70 mmHg Termination: Protocol complete. Resting ECG: Normal sinus rhythm. Nonspecific T wave abnormality. Cannot r/o anterior infarct - age uncertain. Post ECG: No diagnostic ST changes. Arrhythmia: No arrhythmias seen. Perfusion Findings: Abnormal perfusion imaging - see below. Technical quality of study is excellent. Prone imaging was not performed. Left ventricle cavity size at rest is normal. Left ventricle cavity size with stress is unchanged. A TID of 0.86 was automatically calculated. defect 1: Size is medium. Severity is mild to moderate in intensity. Location of defect is in the basal inferior segment, basal inferolateral segment, mid inferior segment and mid inferolateral segment. Reversibility is partial. Type of defect is infarction with harry-infarct or superimposed ischemia. LV Function: Global left ventricular function is normal. Left ventricular ejection fraction is 61 %. CONCLUSIONS: Global left ventricular function is normal. Left ventricular ejection fraction is 61 %. Size is medium. Severity is mild to moderate in intensity. Location of defect is in the basal inferior segment, basal inferolateral segment, mid inferior segment and mid inferolateral segment. Reversibility is partial. Type of defect is infarction with harry-infarct or superimposed ischemia. SDS: 3. Myocardial perfusion imaging is abnormal. Negative EKG portion of stress test. Gut attenuation artifact is also seen involving the inferior wall. Unfortunately. the patient could not be proned. Electronically Signed By: Tom Boland MD 09/30/2024 5:04:23 PM MANHOLE STRIPPER Electronically Signed By: Tom Boland MD 09/30/2024 5:04:23 PM MANHOLE STRIPPER Procedure Note Tom Boland MD - 09/30/2024 [facility] [address] [facility] [address] [address] [address] [facility] [id number] [address] P:[phone] P:[phone] MPI Imaging Report Patient Name: LIZZY FALK A : 1950 Study Date: 09/30/2024 8:23:38 AM Gender: F Tech: [facility] Location: [facility] Provider: TOM BOLAND Height(Cm): 167.6 BSA: Weight(Kg): 121.6 BMI: 43.29 Order Provider: TOM BOLAND - PHYSICIAN: Referring Physician: Dr. Candelaria. HCG Physician: Negro Boland M.D. Interpreting Physician: Negro Boland M.D. Stress Supervision: Negro Boland M.D. PROCEDURES: Pharmacologic SPECT Report: Myocardial perfusion imaging with Tc99M Sestamibi SPECT at rest and stresspost regadenoson (Lexiscan) infusion. INDICATIONS: Hypertension, Diabetes, Family Hx CAD, High Cholesterol, Former Smoker,and I25.118 Atherosclerotic heart disease of yurok coronary artery with other formsof angina pectoris. FINDINGS: Procedural Findings: One day rest/stress was used. Tc99m Sestamibi injected IV at rest was 12.9 millicuries 38.0 millicuries of Tc99M Sestamibi injected IV during Lexiscan stress Lexiscan 0.4mg administered IV over 10 seconds. Patient had no symptoms during stress test. Baseline heart rate was 77 BPM Maximum Heart Rate Achieved was: 100 BPM Baseline blood pressure was 136/70 mmHg Post Stress Blood Pressure was 132/70 mmHg Termination: Protocol complete. Resting ECG: Normal sinus rhythm. Nonspecific T wave abnormality. Cannot r/o anteriorinfarct - age uncertain. Post ECG: No diagnostic ST changes. Arrhythmia: No arrhythmias seen. Perfusion Findings: Abnormal perfusion imaging - see below. Technical quality of study isexcellent. Prone imaging was not performed. Left ventricle cavity size at rest is normal.Left ventricle cavity size with stress is unchanged. A TID of 0.86 was automaticallycalculated. defect 1: Size is medium. Severity is mild to moderate in intensity. Location ofdefect is in the basal inferior segment, basal inferolateral segment, mid inferior segmentand mid inferolateral segment. Reversibility is partial. Type of defect isinfarction with harry-infarct or superimposed ischemia. LV Function: Global left ventricular function is normal. Left ventricular ejectionfraction is 61 %. CONCLUSIONS: Global left ventricular function is normal. Left ventricular ejectionfraction is 61 %. Size is medium. Severity is mild to moderate in intensity. Location ofdefect is in the basal inferior segment, basal inferolateral segment, mid inferior segmentand mid inferolateral segment. Reversibility is partial. Type of defect isinfarction with harry-infarct or superimposed ischemia. SDS: 3. Myocardial perfusion imaging is abnormal. Negative EKG portion of stress test. Gut attenuation artifact is also seen involving the inferior wall.Unfortunately. the patient could not be proned. Electronically Signed By: Tom Boland MD 09/30/2024 5:04:23 PM MANHOLE STRIPPER Electronically Signed By: Tom Boland MD 09/30/2024 5:04:23 PM MANHOLE STRIPPER Tom Boland MD IMG NM PROCEDURES Final R esult * POCT lipid panel (11/21/2023 2:00 PM MANHOLE STRIPPER) Cholesterol, POC 104 mg/dL HDL, POC 31 mg/dL Triglycerides, POC 165 mg/dL LDL Cholesterol POC 41 mg/dL Chol/HDL Ratio, POC 3.4 Non-HDL Cholesterol, POC 74 mg/dL Cholesterol Total, POC 104 mg/dL Capillary blood 11/21/2023 2 :00 PM MANHOLE STRIPPER Tom Boland MD POINT OF CARE TEST ORDERA BLES Edited Result - Final * eGFR (02/14/2017 1:23 AM CDT) eGFR 14 mL/min/1.7 3 m2 [facility] Comment: Interpretive Data Reference Interval Normal >/= 90 mL/min/1.73m2 Mildly decreased* 60 - 89 mL/min/1.73m2 Mildly to moderately decreased 45 - 59 mL/min/1.73m2 Moderately to severely decreased 30 - 44 mL/min/1.73m2 Severely decreased 15 - 29 mL/min/1.73m2 Kidney Failure < 15 mL/min/1.73m2 *Relative to young adult level If -Faroese multiply value by 1.16. Estimated glomerular filtration rate is determined by the CKD-EPI equation recommended by the National Kidney Foundation (KDIGO 2012 Clinical Practice Guideline for the Evaluation and Management of Chronic Kidney Disease. Kidney Intnl Suppl Oct 2012;3:1). The CKD-EPI equation should not be used for patients with unstable renal function and has not been validated in children and those over 70. Current interpretive data was last reviewed 2017. Blood specimen (specimen) 02/14/2017 1:23 AM CDT 02/14/2017 2:08 AM CDT us Will Mcmahon MD LAB BLOOD ORDERABLES Final [facility] [address] Department [employer] [place] [address] * (ABNORMAL) Hemoglobin A1c (01/29/2017 12:02 PM CDT) Hgb A1C 11.2(H) 4.0 - 6.0 % [facility] Blood specimen (specimen) 01/29/2017 12:02 PM CDT 01/29/2017 1:45 PM CDT us Will Mcmahon MD LAB BLOOD ORDERABLES Final Re sult Performing Organization Address City/[facility]/ZIP Co de Phone Number [facility] [address] Department [employer] [place] [address] from Last 3 Months or Most Recently Relevant to Health Maintenance Insurance MEDICARE SOLUTIONS [facility] MDCR HMO REF MEDICARE SOLUTIONS Care Teams Wildlife [employer] Internship Relationship Specialty Start Date End Date James Candelaria DO [address] [place] [address] PCP - General Family Medicine 01/28/24
--- OUTSIDE RECORDS SUMMARY | 2024-12-05 10:11 | XMS_ITS | Patient Health Summary ---
Author Organization [facility] Address [address] [place] [address] Care Team Providers Care Director Professional Services Name Role Phone Unavailable Primary Care Provider Unavailabl e Note from [facility],non-owned Affiliates and Associated Physician Practices is amultiple site organization consisting of ambulatory clinics and hospital sitesin [place], [place], [place] and [place]. This disclosure is being madepursuant to the Care Everywhere program and may not contain all information available regarding this patient. 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
--- OUTSIDE RECORDS SUMMARY | 2024-12-05 10:11 | XMS_ITS | Referral Summary ---
Author Organization [facility] Address [address] [place] [address] Care Team Providers Care Land Sales Agent Name Role Phone Unavailable Primary Care Provider Unavailabl e Source Comments [facility],non-owned Affiliates and Associated Physician Practices is amultiple site organization consisting of ambulatory clinics and hospital sitesin [place], [place], [place] and [place]. This disclosure is being madepursuant to the Care Everywhere program and may not contain all information available regarding this patient. 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
--- OUTSIDE RECORDS SUMMARY | 2024-12-05 10:11 | XMS_ITS ---
Author Organization [facility] Address [address] [place], [place] [id number] Care Team Providers Care Drying Room Attendant Name Role Phone ANGELO Aden Unavailable [phone] James Candelaria Unavailable Unavailable FARNAZ VASQUEZ Unavailable [phone] REASON FOR VISIT *General care Encounters Encounter Location Date Provider Diagnosis [address] [id number] 09/24/2024 FARNAZ VASQUEZ Plan Of Treatment Next Appt Details Provider Name:NED OSHEA, 10:50:00 AM, [address] [place] [address], [id number], Progress Notes * ODILON JARVISEEDOB: [birth year] (74 yo F)Acc No.[id number]:09/24/2024 Patient: Viv LIZZY HOWARD Provider: Marquise VASQUEZ :1950 A ge:74 Y S ex:Female Date:09/24/2024 Address:[address] [place] [address], [address] [facility] Subjective: * Chief Complaints: * 1 . *General care. * Medical History: Objective: * Vitals: Assessment: Plan: * Treatment: * Billing Information: * Visit Code: * Procedure Codes: * Electronic signature of ARY VASQUEZ DPM on 12/05/2024 at 10:11 AM DIRECTOR WHOLESALE Sign off status: Pending * Provider: Marquise VASQUEZ Date: 1 11/25/2023 Generated for Rianna rich/Gilberto/Ana Maria on: 0 12/05/2024 10:11 AM DIRECTOR WHOLESALE
--- OUTSIDE RECORDS SUMMARY | 2024-12-05 10:11 | XMS_ITS | Referral Summary ---
Author Organization [facility] Address [address] [place] [address] Care Team Providers Care Swimming Teacher Name Role Phone James Candelaria Primary Care Provider Encounters Date Type Department Care Team Description 11/30/2024 Telephone [facility] Cardiology [address] [place] [address] Tom Boland MD 11/16/2024 Telephone [facility]iology [address] [place] [address] Tom Boland MD 11/02/2024 11:30 AM RUST - 11/02/2024 1:00 PM VENTURE CAPITAL ANALYST Surgery [facility] Cardiac Catheterization Lab [address] [place] [id number] Logan Ceron MD LEFT HEART CATHETERIZATION WITH CORONARY ANGIOGRAPHY AND WITH OR WITHOUT LEFT VENTRICULOGRAM [id number] 11/02/2024 9:10 AM VENTURE CAPITAL ANALYST - 11/02/2024 6:46 PM VENTURE CAPITAL ANALYST Hospital Encounter [facility] Cardiac Catheterization Lab [id number] [place] [address] Logan Ceron MD 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, unspecified vessel or lesion type, unspecified whether karuk or transplanted heart (HCC) Discharge Disposition: Discharge to home or self care 10/01/2024 Telephone [facility] Cardiology [address] [place] [address] Tom Boland MD [facility] 09/30/2024 10:15 AM VENTURE CAPITAL ANALYST Ancillary Procedure [facility] Cardiology [address] [place] [address] 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) 09/18/2024 2:45 PM VENTURE CAPITAL ANALYST Office Visit [facility] Cardiology at [address] [place] [address] Tom Boland MD Hyperlipidemia associated with type 2 diabetes mellitus (HCC) (Primary Dx); Hypertension associated with diabetes (HCC); 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); NIMA (obstructive sleep apnea) from Last 3 Months Allergies Active Allergy Reactions Criticality Noted Date Comments Adhesive Rash Medium Apricot Anaphylaxis,Rash High 04/23/2022 Other Rash Medium 04/23/2022 Clothing dye Stokes Anaphylaxis,Rash High 04/23/2022 Prochlorperazine Anaphylaxis High Medications cholecalciferol (VITAMIN D3) 400 unit capsule take 1 by Oral route once 0 0 02/17/20 16 Active TRUEplus Pen Needle 31 gauge x 5/16 needle 09/23/20 21 Active calcitRIOL (ROCALTROL) 0.25 mcg capsule 1 capsule (0.25 mcg total) as directed M-W- take in the AM 12/27/19 22 Active [...] enteric coated tabletIndication s: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) Take 1 tablet (81 mg total) by mouth daily 11/21/19 24 Active nitroglycerin (Nitrostat) 0.4 mg SL tabletIndication s:Coronary artery disease involving karuk coronary artery of karuk heart without angina pectoris Place 1 tablet (0.4 mg total) under the tongue every 5 (five) minutes as needed for chest pain 25 tablet 3 05/04/[address] (PROTONIX) 40 mg EC tablet TAKE ONE TABLET BY MOUTH TWICE A DAY 60 tablet 11 06/16/20 24 Active metoprolol tartrate (LOPRESSOR) 25 mg immediate release tabletIndication s:Coronary artery disease involving karuk coronary artery of karuk heart without angina pectoris TAKE HALF A TABLET BY MOUTH TWICE A DAY 90 tablet 1 09/14/20 24 Active clopidogreL (PLAVIX) 75 mg tablet Take 1 tablet (75 mg total) by mouth daily 30 tablet 11 11/02/19 25 026 Active Vascepa 1 gram capsule Take 1 capsule (1 g total) by mouth 2 (two) times a day 60 capsule 11 11/16/19 25 026 Active cloNIDine (CATAPRES) 0.1 mg tablet TAKE ONE TABLET BY MOUTH TWICE A DAY 180 tablet 3 11/30/19 25 Active atorvastatin (LIPITOR) 80 mg tabletIndication s:Hyperlipidemia associated with type 2 diabetes mellitus (HCC),Coronary artery disease involving karuk coronary artery of karuk heart without angina pectoris TAKE ONE TABLET BY MOUTH DAILY 90 tablet 3 11/30/19 25 Active cloNIDine (CATAPRES) 0.1 mg tablet Take 1 tablet (0.1 mg total) by mouth 2 (two) times a day 180 tablet 3 11/21/19 24 025 Discontinued icosapent ethyL (Vascepa) 1 gram capsule TAKE ONE CAPSULE BY MOUTH TWICE A DAY 60 capsule 11 12/31/19 24 025 Discontinued(Ot her) atorvastatin (LIPITOR) 80 mg tabletIndication s:Hyperlipidemia associated with type 2 diabetes mellitus (HCC),Coronary artery disease involving karuk coronary artery of karuk heart without angina pectoris TAKE ONE TABLET BY MOUTH DAILY 90 tablet 3 03/04/20 24 025 Discontinued Active Problems Problem Noted Date Diagnosed Date Syncope and collapse 11/21/2023 Anemia 05/21/2022 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, unspecified vessel or lesion type, unspecified whether karuk or transplanted heart 04/27/2022 Atypical chest pain 03/20/2022 Morbid (severe) obesity due to excess calories 0 03/20/2022 Body mass index 40.0-44.9, adult ([facility]) 03/20 Morbid obesity 09/12/2021 NIMA (obstructive sleep apnea) 09/12/2021 Systolic ejection murmur 06/19/2019 Coronary artery disease of n ative artery of karuk heart with stable angina pectoris 03/20/2017 Hyperlipidemia associated with type 2 diabetes m ellitus 03/20/2017 Atherosclerosis of coronary artery 08/19/2014 Overview (01/18/2017): CAD (coronary atherosclerotic disease) Hypertension associated with diabetes 08/19/2014 Overview (01/18/2017): Hypertension Diabetes mellitus 08/19/2014 Overview (01/18/2017): Diabetes Hyperlipidemia LDL goal <70 08/19/2014 Overview (01/18/2017): Hyperlipidemia Adiposity 08/19/2014 Overview (01/18/2017): Obesity Gastroesophageal reflux disease 08/19/2014 Overview (01/18/2017): GERD (gastroesophageal reflux disease) Immunizations Immunization Administration Dates Next Due Moderna SARS-CoV-2 Monovalent Vaccination (12+ Y RS) 05/03/2021,04/12/2021 Social History Tobacco Use Types Packs/Day Years [...] on file Legal Sex Female 3:26 AM VENTURE CAPITAL ANALYST Gender Identity Female 05/22/2019 11:23 AM CDT Sexual Orientation Straight 10/24/2021 7: 58 AM VENTURE CAPITAL ANALYST Last Filed Vital Signs Vital Sign Reading Time Taken Comments Blood Pressure 179/69 11/02/2024 6:20 PM VENTURE CAPITAL ANALYST Pulse 76 11/02/2024 6:30 PM VENTURE CAPITAL ANALYST Temperature 36.6 C (97.9 F) 11/02/2024 6:30 PM VENTURE CAPITAL ANALYST Respiratory Rate 24 11/02/2024 6:30 PM VENTURE CAPITAL ANALYST Oxygen Saturation 96% 11/02/2024 6:10 PM VENTURE CAPITAL ANALYST Inhaled Oxygen Concentration - - Weight 117.7 kg (259 lb 8 oz) 11/02/2024 9:26 AM VENTURE CAPITAL ANALYST Height 167.6 cm (5' 6 ) 11/02/2024 9:26 AM VENTURE CAPITAL ANALYST Body Mass Index 41.88 11/02/2024 9:26 AM VENTURE CAPITAL ANALYST Plan of Treatment Not on file Medical Devices Implanted Type Area Film Producer Device Identifier Shelf Expiration Date Model / Serial / Lot [employer] Resolute Helotes 4mm 2.1-2.7fr 18mm 140cm Rapid Exchange Radiopaque [id number] - [id number] Implanted:Qty: 1 [facility]27[facility]/06/2025 [id number] X / / [id number] [employer] Resolute Jose 4mm 2.1-2.7fr 18mm 140cm Rapid Exchange Radiopaque [id number] - [id number] Implanted:Qty: 1 on 04/27/2022 by Logan Ceron MD at [facility] [employer] [facility] 08/22/2024 [id number] X / / [id number] 001 [facility] Angio-Seal Vip 6fr Closere Device [id number] - [id number] Implanted:Qty: 1 on 04/27/2022 [facility] 02/10/2023 [id number] / [id number] Procedures Procedure Name Priority Date/Time Associated Diagnosis Comments POCT GLUCOSE DEVICE Routine 11/02/2024 2 :57 PM VENTURE CAPITAL ANALYST TRLUML BALO ANGIOP 1ST ARTERY S&I [id number] Routine 11/02/2024 2:27 PM VENTURE CAPITAL ANALYST 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, unspecified vessel or lesion type, unspecified whether karuk or transplanted heart (HCC) CORONARY OCT, 1ST VESSEL Routine 11/02/2024 2:27 PM VENTURE CAPITAL ANALYST 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, unspecified vessel or lesion type, unspecified whether karuk or transplanted heart (HCC) VASCULAR ACCESS US GUIDANCE Routine 11/02/2024 2:27 PM VENTURE CAPITAL ANALYST 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, unspecified vessel or lesion type, unspecified whether karuk or transplanted heart (HCC) LEFT HEART CATHETERIZATION WITH CORONARY ANGIOGRAPHY AND WITH AND WITHOUT LEFT VENTRICULOGRAM Routine 11/02/2024 2:27 PM VENTURE CAPITAL ANALYST 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, unspecified vessel or lesion type, unspecified whether karuk or transplanted heart (HCC) MODERATE SEDATION FIRST 15MIN 5+ YEAR [address] 11/02/2024 12:50 PM VENTURE CAPITAL ANALYST 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, unspecified vessel or lesion type, unspecified whether karuk or transplanted heart (HCC) POCT GLUCOSE DEVICE Routine 11/02/2024 12:10 PM VENTURE CAPITAL ANALYST POCT GLUCOSE DEVICE Routine 11/02/2024 9 :22 AM VENTURE CAPITAL ANALYST NM MPI SPECT (REST AND/OR STRESS) MULTIPLE STUDIES Schedule Routine, Read Routine (OP Routine) 09/30/2024 12:18 PM VENTURE CAPITAL ANALYST 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) POCT LIPID PANEL Routine 11/21/2023 2:00 PM VENTURE CAPITAL ANALYST 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) Hyperlipidemia associated with type 2 diabetes mellitus (HCC) EGFR Routine 02/14/2017 1:23 AM CDT HEMOGLOBIN A1C STAT 01/29/2017 12:02 PM CDT from Last 3 Months or Most Recently Relevant to Health Maintenance Results * POCT glucose (11/02/2024 2:57 PM VENTURE CAPITAL ANALYST) Glucose, POC 166 70 - 199 mg/dL Blood 11/02/2024 2:57 PM VENTURE CAPITAL ANALYST 11/02/2024 2:57 PM VENTURE CAPITAL ANALYST us Logan Ceron MD LAB POCT ORDERABLES - DEVICE Fin al Result CHERYL [address] Department [place] [address] * LEFT HEART CATHETERIZATION WITH CORONARY ANGIOGRAPHY AND WITH AND WITHOUT LEFT VENTRICULOGRAM, VASCULAR ACCESS US GUIDANCE, CORONARY OCT, 1ST VESSEL, TRLUML BALO ANGIOP 1ST ARTERY S&I [id number] (11/02/2024 2:27 PM VENTURE CAPITAL ANALYST) Anatomical Region Laterality Modality X-Ray Angiograph y Addenda Addendum by Logan Ceron MD on 11/02/2024 3:07 PM VENTURE CAPITAL ANALYST CARDIAC CATHETERIZATION AND INTERVENTION REPORT DATE OF PROCEDURE: 11/02/24 INDICATION FOR PROCEDURE: Atypical chest discomfort, known CAD, abnormal MPI BRIEF CLINICAL HISTORY: Lizzy Falk is a 74 y.o. female with CAD, history of inferior ST-elevation PR status post PCI/stenting of mid RCA at [...] 09/30/2024 reportedly showed LVEF 61%; medium size, [id number] intensity basal inferior, basal inferolateral, mid inferior [...] groin hematoma, retroperitoneal bleed, vessel perforation; periprocedural PR, cardiac arrhythmias, stroke, contrast induced nephropathy, and [...] noncompliant balloon followed by balloon angioplasty using [employer] agent paclitaxel coated balloon Moderate sedation-CPT code 47023 and beyond MODERATE SEDATION: Midazolam 2 mg , Fentanyl 50 mcg, start time 1306 stop time 1427, total direct [id number] monitoring of conscious sedation 81 minutes (CPT 11020) TRAINED OBSERVER: Arlet Silva RN was trained [...] informed consent, patient was brought to the label maker and prepped and draped in the usual sterile manner. Time-out and immediate reassessment of the patient was performed. After local anesthesia with lidocaine, right radial artery access was taken with micropuncture needle under ultrasound guidance followed by insertion of a 6 Palestinian sheath. Patient received 5 mg of verapamil, 100 mcg of nitroglycerin through the sheath, and 5000 units of heparin. RCA angiogram was performed using 5 Palestinian JR4 catheter with significant difficulty due to tortuosity in the brachiocephalic artery and some spasm in the right radial artery. In light of this, access was taken in the left radial artery, followed by insertion of a 6 Palestinian sheath. Selective left coronary angiogram was performed using 5 Palestinian JL 3.5 diagnostic catheter. Estimated blood loss [...] mid RCA. RCA was engaged using 6 Palestinian 3DRC guide catheter through left radial access site. Bivalirudin was used for procedural anticoagulation. Patient received aspirin and loading dose of clopidogrel in the label maker. The stenosis in the mid RCA was crossed using the 0.014 luge guidewire. Next, IVUS was performed using [employer] douglas catheter on manual pullback which showed diffuse ISR and intimal hyperplasia in the mid segment. Significant calcification was seen in the RCA. Balloon angioplasty was initially performed using a 4.0 x 10 mm [employer] wolverine cutting balloon, followed by balloon angioplasty using a 4.0 x 20 mm NC balloon at high inflation pressures for optimal vessel preparation. Next, balloon angioplasty was performed using 4.0 x 20 mm [employer] Agent paclitaxel coated balloon inflated up [...] 2. Tortuous right brachiocephalic artery 3. PCI-IVUS, GROOVING LATHE TENDER using cutting balloon, NC balloon followed by balloon angioplasty using 4.0 x 20 mm [employer] AGENT paclitaxel coated balloon. PLAN/RECOMMENDATIONS: Dual antiplatelet therapy with aspirin and clopidogrel, in addition to other medications including high-intensity statin. Risk factor modification. Follow-up with Dr. Boland. Voice recognition software was used to complete this document, therefore, materials engineer variances may occur. Logan Ceron MD, [facility] 11/02/24 us Logan Ceron MD CV CARDIAC CATH PROCEDURES Edite d Result - Final * POCT glucose (11/02/2024 12:10 PM VENTURE CAPITAL ANALYST) Glucose, POC 184 70 - 199 mg/dL Blood 11/02/2024 12:1 0 PM VENTURE CAPITAL ANALYST 11/02/2024 12:10 PM VENTURE CAPITAL ANALYST Logan Ceron MD LAB POCT ORDERABLES - DEVICE Fin al Result Performing Organization Address [facility] de Phone Number CHERYL WOOD [address] [place] [address] * POCT glucose (11/02/2024 9:22 AM VENTURE CAPITAL ANALYST) [facility] Signature Glucose, POC 194 70 - 199 mg/dL Blood 11/02/2024 9:22 AM VENTURE CAPITAL ANALYST 11/02/2024 9:22 AM VENTURE CAPITAL ANALYST Logan Ceron MD LAB POCT ORDERABLES - DEVICE Fin al Result Performing Organization Address [facility] Phone Number CHERYL [address] [place] [address] * NM MPI SPECT (Rest and/or Stress) Multiple Studies (09/30/2024 12:18 PM VENTURE CAPITAL ANALYST) Anatomical Region Laterality Modality Body N/A Nuclear Medicine 09/30/2024 8:23 AM VENTURE CAPITAL ANALYST Narrative 09/30/2024 5:05 PM VENTURE CAPITAL ANALYST [facility] Cardiology [address] [facility] [address], [place] [address] [address] [facility] [address], [place] [address] P:[phone] P:[phone] MPI Imaging Report Patient Name: LIZZY FALK A : 1950 Study Date: 09/30/2024 8:23:38 AM Gender: F Tech: GABI JOYCE Location: [facility] Provider: TOM BOLAND Height(Cm): 167.6 BSA: Weight(Kg): [...] Smoker, and I25.118 Atherosclerotic heart disease of karuk coronary artery with other forms of angina [...] By: Tom Boland MD 09/30/2024 5:04:23 PM VENTURE CAPITAL ANALYST Electronically Signed By: Tom Boland MD 09/30/2024 5:04:23 PM VENTURE CAPITAL ANALYST Procedure Note Tom Boland MD - 09/30/2024 [facility] Cardiology [address] [facility] [address], [place] [address] [address] [facility] [address], [place] [address] P:[phone] P:[phone] MPI Imaging Report Patient Name: LIZZY FALK A : 1950 Study Date: 09/30/2024 8:23:38 AM Gender: F Tech: ISIAH [facility] Location: [facility] Provider: TOM BOLAND Height(Cm): 167.6 BSA: Weight(Kg): [...] Former Smoker,and I25.118 Atherosclerotic heart disease of karuk coronary artery with other formsof angina pectoris. [...] By: Tom Boland MD 09/30/2024 5:04:23 PM VENTURE CAPITAL ANALYST Electronically Signed By: Tom Boland MD 09/30/2024 5:04:23 PM VENTURE CAPITAL ANALYST Tom Boland MD IMG NM PROCEDURES Final R esult * POCT lipid panel (11/21/2023 2:00 PM VENTURE CAPITAL ANALYST) Cholesterol, POC 104 mg/dL HDL, POC 31 mg/dL Triglycerides, POC 165 mg/dL LDL Cholesterol POC 41 mg/dL Chol/HDL Ratio, POC 3.4 Non-HDL Cholesterol, POC 74 mg/dL Cholesterol Total, POC 104 mg/dL Capillary blood 11/21/2023 2 :00 PM VENTURE CAPITAL ANALYST Tom Boland MD POINT OF CARE TEST ORDERA BLES Edited Result - Final * eGFR (02/14/2017 1:23 AM CDT) eGFR 14 mL/min/1.7 3 [facility]2 [facility] Comment: Interpretive Data Reference Interval Normal >/= 90 mL/min/1.73m2 Mildly decreased* 60 - 89 mL/min/1.73m2 Mildly to moderately decreased 45 - 59 mL/min/1.73m2 Moderately to severely decreased 30 - 44 mL/min/1.73m2 Severely decreased 15 - 29 mL/min/1.73m2 Kidney Failure < 15 mL/min/1.73m2 *Relative to young adult level If -Cook Islander multiply value by 1.16. Estimated glomerular filtration [...] 1:23 AM CDT 02/14/2017 2:08 AM CDT Will Mcmahon MD LAB BLOOD ORDERABLES Final Re sult [facility] [address] Department [place] [address] * (ABNORMAL) Hemoglobin A1c (01/29/2017 12:02 PM CDT) Hgb A1C 11.2(H) 4.0 - 6.0 % [facility] Blood specimen (specimen) 01/29/2017 12:02 PM CDT 01/29/2017 1:45 PM CDT us Will Mcmahon MD LAB BLOOD ORDERABLES Final Re sult [facility] [address] Department [place] [address] from Last 3 Months or Most Recently Relevant to Health Maintenance Insurance [employer] [facility] Address: [address] [address] [facility] MDCR HMO REF [employer] [facility] Address: [address] [address] [place] [address] Care Teams Swimming Teacher Relationship Specialty Start Date End Date James Candelaria DO [address] [place] [address] PCP - General Family Medicine 01/28/24
--- OUTSIDE RECORDS SUMMARY | 2024-12-05 10:11 | XMS_ITS | Clinical Summary ---
Author Organization [facility] Address [address] [place] [address] Care Team Providers Care Medical Consultant Name Role Phone Unavailable Primary Care Provider Unavailabl e Source Comments [facility] Chronicity,non-owned Affiliates and Associated Physician Practices is amultiple site organization consisting of ambulatory clinics and hospital sitesin [place], [place], [place]. This disclosure is being madepursuant to the Care Everywhere program and may not contain all information available regarding this patient. Last updated 18.[facility] Chronicity Active Problems Problem Noted Date Diagnosed Date Brain mass 11/13/2023 Social History Tobacco Use Types Packs/Day Years Used Date Smoking Tobacco: Never Assessed Sex and Gender Information Value Date Recorded Sex Assigned at Not on file Gender Identity Not on file Sexual Orientation Not on file Plan of Treatment Health Maintenance Due Date Last Done Comments BONE DENSITY TESTING 1950 HEPATITIS C SCREENING 06/14/1966 DTAP/TDAP/TD VACCINES (1 - Tdap) 1967 PNEUMOCOCCAL VACCINE 50+ (1 of 1 - PCV) 1998 ZOSTER VACCINE (1 of 2) 1998 Respiratory Syncytial Virus (RSV) Vaccine Pt: or over 60 yrs (1 - 1-dose 75+ series) 2023 COVID-19 VACCINE (3 - 2023- season) 2024 05/03/2021, 04/12/2021 INFLUENZA VACCINE (#1) 2024 , 07/14/2019, 08/24/2015, Additional history exists DEPRESSION SCREENING 10/14/2024 MEDICARE AWV CALENDAR YEAR 2024 HEPATITIS B VACCINE Aged Out No longe r eligible based on patient's age to complete this topic HIB VACCINE Aged Out No longer eligi ble based on patient's age to complete this topic HPV VACCINE Aged Out No longer eligi ble based on patient's age to complete this topic MENINGOCOCCAL (Group B) VACCINE Aged Out No longer eligible based on patient's age to complete this topic MENINGOCOCCAL VACCINE Aged Out No chadwick andrey eligible based on patient's age to complete this topic
--- OUTSIDE RECORDS SUMMARY | 2024-12-05 10:11 | XMS_ITS | Clinical Summary ---
Author Organization [facility] Address [address] [place] [address] Care Team Providers Care Pre Owned Sales Manager Name Role Phone Unavailable Primary Care Provider Unavailabl e Family History Medical History Relation Name Comments Breast Cancer Neg Hx Social History Tobacco Use Types Packs/Day Years Used Date Smoking Tobacco: Never Assessed Comments Unknown Sex and Gender Information Value Date Recorded Sex Assigned at Not on file Legal Sex Female 2:42 AM BALLROOM DANCE INSTRUCTOR Gender Identity Not on file Sexual Orientation Not on file Plan of Treatment Health Maintenance Due Date Last Done Comments DEXA Bone Density 1950 Hepatitis C Virus (HCV) Screening 1950 TdaP Immunization 1950 Colonoscopy 1993 Colorectal Cancer Screening 1993 Cologuard 1998 Immunochemical Fecal Occult Blood 1998 Pneumococcal Immunization (5 0+ years) (1 of 1 - PCV) 1998 Zoster Immunization (1 of 2) 1998 Mammogram 12/09/2014 12/09/2013, 12/06/2012 Respiratory Syncytial Virus (RSV) Immunization (Adult) (1 - 1-dose 75+ series) 2023 Influenza Immunization (#1) 2024 SARS-COV-2 Immunization ( - season) 2024 Hepatitis B Immunization Aged Out No longer eligible based on patient's age to complete this topic Meningococcal Immunization (ACWY) Aged Out No longer eligible b ased on patient's age to complete this topic Rotavirus Immunization Aged Out No lo nger eligible based on patient's age to complete this topic Procedures Procedure Name Priority Date/Time Associated Diagnosis Comments GARY SCREENING BILATERAL DIGITAL W CAD W BONITA Routine 12/09/2013 8:40 AM BALLROOM DANCE INSTRUCTOR Other screening mammogram from Last 3 Months or Most Recently Relevant to Health Maintenance Results * GARY SCREENING BILATERAL DIGITAL W CAD W BONITA (12/09/2013 8:40 AM BALLROOM DANCE INSTRUCTOR) Anatomical Region Laterality Modality breast Bilateral Mammography, Oth er 12/09/2013 8:40 AM BALLROOM DANCE INSTRUCTOR Impressions 12/09/2013 11:35 AM BALLROOM DANCE INSTRUCTOR IMPRESSION: No evidence of malignancy. ASSESSMENT: Right breast BI-RADS category :2-benign findings Left breast BI-RADS category :2-benign findings RECOMMENDATION:Routine mammographic surveillance BIRADS DEFINITIONS: Category 0 - Incomplete Assessment; Category 1 - Negative; Category 2 - Benign Findings; Category 3 - Probable Benign Findings; Category 4 - Suspicious Abnormality; Category 5 - Highly Suggestive of Malignancy. A BENIGN RADIOGRAPHIC REPORT DOES NOT PRECLUDE THE CLOSE FOLLOWUP AND/OR BIOPSY OF ANY CLINICALLY SUSPECTED LESIONS. PATIENT WILL BE NOTIFIED OF HER RESULTS ACCORDING TO THE FDA, MQSA REQUIREMENTS. ANY RECOMMENDED BREAST IMAGING WORKUP WILL BE SCHEDULED BY THE [facility]. Narrative 12/09/2013 11:35 AM BALLROOM DANCE INSTRUCTOR BILATERAL SCREENING MAMMOGRAM WITH TOMOSYNTHESIS TECHNIQUE: Bilateral full field screening mammogram performed including digital breast tomosynthesis. This examination was reviewed with the assistance of computer aided detection. HISTORY: Screening examination COMPARISON: 11/02/2011 FINDINGS: The breast parenchyma is mildly dense. Postsurgical changes of the left breast are again identified. No suspicious masses, asymmetric densities, or clustered microcalcifications identified. No skin thickening, nipple retraction, or architectural distortion evidence on digital mammography or digital breast tomosynthesis study. This examination reviewed with the assistance of computer aided detection. Procedure Note Hussain Lopez MD - 12/09/2013 BILATERAL SCREENING MAMMOGRAM WITH TOMOSYNTHESIS TECHNIQUE: Bilateral full field screening mammogram performed includingdigital breast tomosynthesis. This examination was reviewed with theassistance of computer aided detection. HISTORY: Screening examination COMPARISON: 11/02/2011 FINDINGS: The breast parenchyma is mildly dense. Postsurgical changes of the left breast are again identified. Nosuspicious masses, asymmetric densities, or clustered microcalcificationsidentified. No skin thickening, nipple retraction, or architecturaldistortion evidence on digital mammography or digital breast tomosynthesisstudy. This examination reviewed with the assistance of computer aideddetection. IMPRESSION: No evidence of malignancy. ASSESSMENT: Right breast BI-RADS category :2-benign findings Left breast BI-RADS category :2-benignfindings RECOMMENDATION:Routine mammographic surveillance BIRADS DEFINITIONS: Category 0 - Incomplete Assessment; Category 1 -Negative; Category 2 - Benign Findings; Category 3 - Probable BenignFindings; Category 4 - Suspicious Abnormality; Category 5 - HighlySuggestive of Malignancy. A BENIGN RADIOGRAPHIC REPORT DOES NOT PRECLUDE THE CLOSE FOLLOWUP AND/ORBIOPSY OF ANY CLINICALLY SUSPECTED LESIONS. PATIENT WILL BE NOTIFIED OFHER RESULTS ACCORDING TO THE FDA, MQSA REQUIREMENTS. ANY RECOMMENDEDBREAST IMAGING WORKUP WILL BE SCHEDULED BY THE [facility]. us Zaid Arenas MD IMG MAMMO ORDERABLES Final R esult from Last 3 Months or Most Recently Relevant to Health Maintenance
--- OUTSIDE RECORDS SUMMARY | 2024-12-05 10:11 | XMS_ITS | Encounter Summary ---
Author Organization [facility] Address [address] [place] [address] Care Team Providers Care Grades 1 6 Tutor Name Role Phone James Candelariah Primary Care Provider Encounter Details Date Type Department Care Team (Late st Contact Info) Description 11/30/2024 Telephone [facility] Cardiology [address] [place] [address] Hussain Rollins MD [address] [address] Social History Tobacco Use Types Packs/Day Years Used Date Smoking Tobacco: Former Cigarettes Q uit: 1979 Smokeless Tobacco: Never Alcohol Use Standard Drinks/Week [...] on file Legal Sex Female 3:26 AM CIVIL DEFENSE DIRECTOR Gender Identity Female 05/22/2019 11:23 AM CDT Sexual Orientation Straight 10/24/2021 7: 58 AM CIVIL DEFENSE DIRECTOR documented as of this encounter Miscellaneous Notes * Telephone Encounter - Richa Osullivan - 11/30/2024 10:18 AM CST Patient requesting refill for cloNIDine (CATAPRES) 0.1 mg with 90 day supply. Please send to [facility]. Thank you. Contact: L DEFENSE DIRECTOR documented in this encounter Plan of Treatment Not on file documented as of this encounter Visit Diagnoses Not on filedocumented in this encounter Care Teams Grades 1 6 Tutor Relationship Specialty Start Date End Date James Candelaria DO [address] [place] [address] PCP - General Family Medicine 01/28/24 documented as of this encounter
--- OUTSIDE RECORDS SUMMARY | 2024-12-05 10:11 | XMS_ITS | Patient Health Record ---
Author Organization [facility] Address [address] [place], [place] [id number] Care Team Providers Care Vessel Manager Name Role Phone ANGELO Aden Unavailable [phone] James Candelaria Unavailable Unavailable FARNAZ VASQUEZ Unavailable [phone] Allergies Allergen (clinical drug ingredient) Drug/Non Drug Allergy documented on EMR Reaction Allergy Type Onset Date Status Tape Unknown Allergy Active Reason For Referral No Information Medications Medication SIG (Take, Route, Frequency, Duration) Notes Start Date End Date Status Furosemide 20 MG Oral for 30 Days Active Icosapent Ethyl 1 GM Oral for 30 Days Active OneTouch Verio - In Vitro for 100 Days Active Pantoprazole Sodium 40 MG Oral for 30 Days Active Atorvastatin Calcium 80 MG Oral for 90 Days Active Brilinta 90 MG Oral for 30 Days Active Calcitriol 0.25 MCG Oral for 28 Days Active Nitroglycerin 0.4 MG Sublingual for 8 Days Active Metoprolol Tartrate 25 MG Oral for 90 Days Active Potassium Citrate ER 10 MEQ (1080 MG) Oral for 30 Days Active TRUEplus 5-Bevel Pen [place] 31G X 8 MM for 33 Days Active HumuLIN R U-500 KwikPen 500 UNIT/ML Subcutaneous for 24 Days Act ines Vital Signs Height-cm 167.64 cm 05/07/2024 Weight-kg 113.4 kg 05/07/2024 Height 66.00 in 05/07/2024 Weight 250 lbs 05/07/2024 BMI 40.35 kg/m2 05/07/2024 Encounters Encounter Location Date Provider Diagnosis [facility] [place] [address] [place], [place] [id number] 10/01/2024 FARNAZ DAVYDOV Xerosis cutis L85.3 ; Tinea unguium B35.1 ; Unspecified atherosclerosis of [place] arteries of extremities, bilateral legs I70.203 ; Pain in right toe(s) M79.674 ; Pain in left toe(s) M79.675 ; Type 2 diabetes mellitus with diabetic peripheral angiopathy without gangrene E11.51 ; Acquired keratosis [keratoderma] palmaris et plantaris L85.1 ; Pain in right foot M79.671 and Pain in left foot M79.[address] [id number] 02/13/2024 FARNAZ DAVYDOV Xerosis cutis L85.3 ; Tinea unguium B35.1 ; Unspecified atherosclerosis of [place] arteries of extremities, bilateral legs I70.203 ; Pain in right toe(s) M79.674 ; Pain in left toe(s) M79.675 and Type 2 diabetes mellitus with diabetic peripheral angiopathy without gangrene E11.[address] [id number] 04/23/2024 FARNAZ DAVYDOV Xerosis cutis L85.3 ; Tinea unguium B35.1 ; Unspecified atherosclerosis of [place] arteries of extremities, bilateral legs I70.203 ; Pain in right toe(s) M79.674 ; Pain in left toe(s) M79.675 and Type 2 diabetes mellitus with diabetic peripheral angiopathy without gangrene E11.[address] [id number] 05/07/2024 FARNAZ DAVYDOV Xerosis cutis L85.3 ; Tinea unguium B35.1 ; Unspecified atherosclerosis of [place] arteries of extremities, bilateral legs I70.203 ; Pain in right toe(s) M79.674 ; Pain in left toe(s) M79.675 and Type 2 diabetes mellitus with diabetic peripheral angiopathy without gangrene E11.[address] [id number] 07/23/2024 FARNAZ DAVYDOV Xerosis cutis L85.3 ; Tinea unguium B35.1 ; Unspecified atherosclerosis of [place] arteries of extremities, bilateral legs I70.203 ; [...] Treatment Notes Treatment Clinical Notes Section Notes 02/13/2024 Tinea unguium (ICD-10 - B35.1) Aseptic debridement [...] educated regarding both OTC and prescription treatments. 02/13/2024 Xerosis cutis (ICD-10 - L85.3) The patient was educated regarding proper hydration of their feet/ankles and the patient was given several recommendations for proper creams to protect/hydrate and keep the area healthy. Continue with use of lotion to be applied to feet daily. 04/23/2024 Tinea unguium (ICD-10 - B35.1) Aseptic debridement [...] educated regarding both OTC and prescription treatments. 04/23/2024 Xerosis cutis (ICD-10 - L85.3) The patient was educated regarding proper hydration of their feet/ankles and the patient was given several recommendations for proper creams to protect/hydrate and keep the area healthy. Continue with use of lotion to be applied to feet daily. 05/07/2024 Tinea unguium (ICD-10 - B35.1) Aseptic debridement [...] educated regarding both OTC and prescription treatments. 05/07/2024 Xerosis cutis (ICD-10 - L85.3) The patient was educated regarding proper hydration of their feet/ankles and the patient was given several recommendations for proper creams to protect/hydrate and keep the area healthy. Continue with use of lotion to be applied to feet daily. 07/23/2024 Tinea unguium (ICD-10 - B35.1) Aseptic debridement [...] educated regarding both OTC and prescription treatments. 07/23/2024 Xerosis cutis (ICD-10 - L85.3) The patient [...] regarding both OTC and prescription treatments. 10/01/2024 Xerosis cutis (ICD-10 - L85.3) The patient was educated regarding proper hydration of their feet/ankles and the patient was given several recommendations for proper creams to protect/hydrate and keep the area healthy. Continue with use of lotion to be applied to feet daily. 10/01/2024 Unspecified atherosclerosis of [place] arteries of extremities, bilateral legs (ICD-10 - I70.203) Patient educated on risks and aggravating factors of PVD, including conservative treatment options such as a diet and exercise regimen to aid in slowing progression of vascular disease 05/07/2024 Unspecified atherosclerosis of [place] arteries of extremities, bilateral legs (ICD-10 - I70.203) Patient educated on risks and aggravating factors of PVD, including conservative treatment options such as a diet and exercise regimen to aid in slowing progression of vascular disease 07/23/2024 Unspecified atherosclerosis of [place] arteries of extremities, bilateral legs (ICD-10 - I70.203) Patient educated on risks and aggravating factors of PVD, including conservative treatment options such as a diet and exercise regimen to aid in slowing progression of vascular disease 02/13/2024 Unspecified atherosclerosis of [place] arteries of extremities, bilateral legs (ICD-10 - I70.203) Patient educated on risks and aggravating factors of PVD, including conservative treatment options such as a diet and exercise regimen to aid in slowing progression of vascular disease 04/23/2024 Unspecified atherosclerosis of [place] arteries of extremities, bilateral legs (ICD-10 - I70.203) Patient educated on risks and aggravating factors of PVD, including conservative treatment options such as a diet and exercise regimen to aid in slowing progression of vascular disease 02/13/2024 Pain in right toe(s) (ICD-10 - M79.674) 07/23/2024 Pain in right toe(s) (ICD-10 - M79.674) 05/07/2024 Pain in right toe(s) (ICD-10 - M79.674) 04/23/2024 Pain in right toe(s) (ICD-10 - M79.674) 10/01/2024 Pain in right toe(s) (ICD-10 - M79.674) 10/01/2024 Pain in left toe(s) (ICD-10 - M79.675) 04/23/2024 Pain in left toe(s) (ICD-10 - M79.675) 05/07/2024 Pain in left toe(s) (ICD-10 - M79.675) 07/23/2024 Pain in left toe(s) (ICD-10 - M79.675) 02/13/2024 Pain in left toe(s) (ICD-10 - M79.675) 02/13/2024 Type 2 diabetes mellitus with diabetic peripheral [...] but not limited to nausea, vomiting, fever. 04/23/2024 Type 2 diabetes mellitus with diabetic peripheral [...] not limited to nausea, vomiting, fever. 10/01/2024 Type 2 diabetes mellitus with diabetic [...] but not limited to nausea, vomiting, fever. 07/23/2024 Type 2 diabetes mellitus with diabetic peripheral [...] but not limited to nausea, vomiting, fever. 05/07/2024 Type 2 diabetes mellitus with diabetic peripheral [...] but not limited to nausea, vomiting, fever. 07/23/2024 Acquired keratosis [keratoderma] palmaris et plantaris (ICD-10 [...] no infection or drainage was noted. 10/01/2024 Acquired keratosis [keratoderma] palmaris et plantaris [...] Pain in right foot (ICD-10 - M79.671) 07/23/2024 Pain in right foot (ICD-10 - M79.671) 07/23/2024 Pain in left foot (ICD-10 - M79.672) 10/01/2024 Pain in left foot (ICD-10 - M79.672) Plan Of Treatment Next Appt Details Provider Name:NED OSHEA, 10:50:00 AM, [address] [place] [address], [phone], Insurance Providers Payer Name Payer Address Payer Phone Subscriber Number Group Number Insured Name Patient Relationship to Insured Coverage Start Date Coverage End Date [facility] MedicareCo mplete [facility] [employer] [facility]) [address] [place], [place] [id number] LIZZY JARVIS Self - patient is the insured
--- OUTSIDE RECORDS SUMMARY | 2024-12-05 10:12 | XMS_ITS ---
Author Organization [facility] Address [address] [place], [place] [address] Care Team Providers Care Mechanical Engineering Intern Name Role Phone ANGELO Aden Unavailable [phone] James Candelaria Unavailable Unavailable FARNAZ VASQUEZ Unavailable [phone] Allergies Allergen (clinical drug ingredient) Drug/Non Drug Allergy documented on EMR Reaction Allergy Type Onset Date Status Tape Unknown Allergy Active REASON FOR VISIT *General care Medications Medication SIG (Take, Route, Frequency, Duration) Notes Start Date End Date Status TRUEplus 5-Bevel Pen [place] 31G X 8 MM for 33 Days Active Potassium Citrate ER 10 MEQ (1080 MG) Oral for 30 Days Active Nitroglycerin 0.4 MG Sublingual for 8 Days Active Brilinta 90 MG Oral for 30 Days Active Metoprolol Tartrate 25 MG Oral for 90 Days Active Furosemide 20 MG Oral for 30 Days Active HumuLIN R U-500 KwikPen 500 UNIT/ML Subcutaneous for 24 Days Act ines OneTouch Verio - In Vitro for 100 Days Active Icosapent Ethyl 1 GM Oral for 30 Days Active Pantoprazole Sodium 40 MG Oral for 30 Days Active Atorvastatin Calcium 80 MG Oral for 90 Days Active Calcitriol 0.25 MCG Oral for 28 Days Active Encounters Encounter Location Date Provider Diagnosis [facility] [address], [place] [id number] 07/23/2024 FARNAZ VASQUEZ Xerosis cutis L85.3 ; Tinea unguium B35.1 ; Unspecified atherosclerosis of [place] arteries of extremities, bilateral legs I70.203 ; [...] Treatment Notes Treatment Clinical Notes Section Notes 07/23/2024 Xerosis cutis (ICD-10 - L85.3) The [...] regarding both OTC and prescription treatments. 07/23/2024 Unspecified atherosclerosis of [place] arteries of extremities, bilateral legs (ICD-10 - I70.203) Patient educated on risks and aggravating factors of PVD, including conservative treatment options such as a diet and exercise regimen to aid in slowing progression of vascular disease 07/23/2024 Pain in right toe(s) (ICD-10 - M79.674) 07/23/2024 Pain in left toe(s) (ICD-10 - M79.675) 07/23/2024 Type 2 diabetes mellitus with diabetic [...] and no infection or drainage was noted. 07/23/2024 Pain in right foot (ICD-10 - [...] OTC and prescription treatments. Unspecified atherosclerosis of [place] arteries of extremities, bilateral legs Patient educated [...] Details Follow Up: 3 Months, Reason: Provider Name:NED OSHEA, 10:50:00 AM, [address] [place] [address], [phone], Progress Notes * ORQUIDEA JARVISOB: [birth year] (74 yo F)Acc No.[id number]:07/23/2024 Patient: ALLEN ESPINOSADORA Provider: Marquise VASQUEZ :1950 A ge:74 Y S ex:Female Date:07/23/2024 Address:[address] [place] [address] Subjective: * Chief Complaints: * 1 . *General care. * HPI: H PI: General care P atient presents to the office for diabetic foot care. Patient states that their nails are thickened, elongated and painful. Patient states that it is aggravated by shoe gear. Onset is gradual., Patient denies taking prescription blood thinners but does take a daily aspirin., Date last seen by Dr. Candelaria was December 2023., Initials SS. * ROS: G eneral / Constitutional: Patient [...] denies d izziness, gait abnormality, headache. * Medical History: * Medications: T aking Calcitriol 0.25 MCG Capsule Oral , Taking Atorvastatin Calcium 80 MG Tablet Oral , Taking Pantoprazole Sodium 40 MG Tablet Delayed Release Oral , Taking OneTouch Verio - Strip In Vitro , Taking Icosapent Ethyl 1 GM Capsule Oral , Taking Furosemide 20 MG Tablet Oral , Taking HumuLIN R U-500 KwikPen 500 UNIT/ML Solution Pen- injector Subcutaneous , Taking TRUEplus 5-Bevel Pen [place] 31G X 8 MM Miscellaneous , Taking Potassium Citrate ER 10 MEQ (1080 MG) Tablet Extended Release Oral , Taking Metoprolol Tartrate 25 MG Tablet Oral , Taking Nitroglycerin 0.4 MG Tablet Sublingual Sublingual , Taking Brilinta 90 MG Tablet Oral * Allergies: T ape. Objective: * Vitals: * Examination: P hysical Examination: V ascular: [...] - L85.3 ?3. U nspecified atherosclerosis of [place] arteries of extremities, bilateral legs - I70.203? [...] feet daily. 3. U nspecified atherosclerosis of [place] arteries of extremities, bilateral legs Notes: Patient [...] was noted. * Follow Up: 3 Months * Billing Information: * Visit Code: 30047 Office Visit, Est Pt., Level 3. * Procedure Codes: * Sign off status: Completed true * Provider: Marquise VASQUEZ Date: 1 Generated for Rianna rich/Gilberto/Rosemaryitting on: 0 12/05/2024 10:12 AM LAW ENFORCEMENT OFFICER History and Physical Notes * HPI (History [...] Date last seen by Dr. Candelaria was December 2023., Initials SS Examination Category Sub-Category Detail Notes Category Not [...]
--- OUTSIDE RECORDS SUMMARY | 2024-12-05 10:12 | XMS_ITS | Clinical Summary ---
Author Organization [facility] Address [facility] [place] [address] Care Team Providers Care Traffic Control Specialist Name Role Phone Unavailable Primary Care Provider Unavailabl e Social History Tobacco Use Types Packs/Day Years Used Date Smoking Tobacco: Never Assessed Comments Unknown Sex and Gender Information Value Date Recorded Sex Assigned at Not on file Legal Sex Female 11:13 PM ANIMAL ECOLOGIST Gender Identity Not on file Sexual Orientation Not on file Last Filed Vital Signs Vital Sign Reading Time Taken Comments Blood Pressure - - Pulse - - Temperature - - Respiratory Rate - - Oxygen Saturation - - Inhaled Oxygen Concentration - - Weight 113.4 kg (250 lb) 08/30/2015 3:53 PM ANIMAL ECOLOGIST Height 167.6 cm (5' 6 ) 08/30/2015 3:53 PM ANIMAL ECOLOGIST Body Mass Index 40.35 08/30/2015 3:53 PM ANIMAL ECOLOGIST Plan of Treatment Health Maintenance Due Date Last Done Comments Hepatitis C 1966 DTaP, Tdap and Td Vaccines ( 1 - Tdap) 1967 Zoster Vaccines (1 of 2) 1998 Dexa Scan (General) 2013 Pneumococcal Vaccine: 65+ Ye ars (1 of 1 - PCV) 2013 RSV Immunization or 60+ Years (1 - 1-dose 75+ series) 2023 COVID-19 Vaccine (2023-2 5 season) 2024 Influenza Adult (#1) 2024 Meningococcal B Vaccine Aged Out No l onger eligible based on patient's age to complete this topic Meningococcal Vaccine Aged Out No chadwick andrey eligible based on patient's age to complete this topic RSV Immunizations Under 20 Months Aged Out No longer eligible based on patient's age to complete this topic
--- OUTSIDE RECORDS SUMMARY | 2024-12-05 10:12 | XMS_ITS | Clinical Summary ---
Author Organization [facility] Address [address] [place] [address] Phone Care Team Providers Care Quality Control Chemist Name Role Phone Lorena Anthony MD Primary Care Provider +1- [phone] Allergies Active Allergy Reactions Criticality Noted Date Comments Adhesive Unknown Medium 11/14/2023 Cefdinir Unknown 11/14/2023 Hydrocodone Unknown 11/14/2023 [place] Anaphylaxis High 11/16/2023 Prochlorperazine Unknown 11/14/2023 Medications pantoprazole (PROTONIX) 40 mg Tablet, Delayed Release (E.C.) Take 40 mg by mouth 2 times daily. Active atorvastatin (LIPITOR) 80 mg tablet Take 80 mg by mouth daily. Active icosapent ethyL (VASCEPA) 1 gram Capsule Take 1 Gram by mouth 2 times daily with meals. Active metoprolol tartrate (LOPRESSOR) 25 mg tablet Take 12.5 mg by mouth 2 times daily. Active furosemide (LASIX) 20 mg tablet Take 20 mg by mouth daily. Active calcitRIOL (ROCALTROL) 0.25 mcg capsule Take 0.25 mcg by mouth daily. Active cloNIDine HCL (CATAPRES) 0.1 mg tablet Take 0.1 mg by mouth 2 times daily. Active insulin regular, human (HUMULIN R U-500, CONC, INSULIN SUBCUT) Inject by subcutaneous injection. 90 in am, 50 meal time, 80 dinner if BS>120 Active Active Problems Problem Noted Date Diagnosed Date Syncope 11/14/2023 History of COVID-19 11/14/2023 Atherosclerosis of [place] co ronary artery of [place] heart without angina pectoris 11/14/2023 S/P CABG (coronary artery bypass graft) 02/01/20 24 Type 2 diabetes mellitus wit hout complication, with long-term current use of insulin 11/14/2023 Primary hypertension 11/14/2023 CKD (chronic kidney disease) stage 4, GFR 15-29 ml/min 11/14/2023 Meningioma 11/14/2023 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 Encounters Date Type Department Care Team Description 12/03/2024 Abstract [facility] Neuro[facility] - Medical [place] [address] [facility] [address] [place] [address] Romel Vernon MD 11/30/2024 Telephone [facility] - [facility] [place] [address] [facility] [address] [place] [address] Provider, Abstract fax number 11/24/2024 Telephone [facility] - Medical [place] [address] [facility] [address] [place] [address] Romel Vernon MD Question 11/05/2024 External Device Data [facility] ABSTRACTION Provider, Abstract 11/03/2024 External Device Data [facility] ABSTRACTION Provider, Abstract from Last 3 Months Social History Tobacco Use Types Packs/Day Years Used Date Smoking Tobacco: Former Cigarettes Tobacco Cessation:Counseling Given: Not Answered Alcohol Use Standard Drinks/Week Comments Never 0 (1 standard drink = 0.6 oz pur e alcohol) Feeling Safe Answer Date Recorded Are you in a relationship wi th someone who hurts you emotionally and/or physically? No 11/13/2023 Food Insecurity Answer Date Recorded Social/Environmental Concerns No concerns Transportation Needs Answer Date Record ed Social/Environmental Concerns No concerns Housing Stability Answer Date Recorded Social/Environmental Concerns No concerns Utility Needs Answer Date Recorded Social/Environmental Concerns No concerns Comments Unknown Sex and Gender Information Value Date Recorded Sex Assigned at Not on file Legal Sex Female 7:46 PM QUALITY CONTROL CHECKER Gender Identity Not on file Sexual Orientation Not on file Last Filed Vital Signs Vital Sign Reading Time Taken Comments Blood Pressure 153/60 11/16/2023 7:23 AM QUALITY CONTROL CHECKER Pulse 66 11/16/2023 7:23 AM QUALITY CONTROL CHECKER Temperature 36.7 C (98.1 F) 11/16/2023 8:07 AM QUALITY CONTROL CHECKER Respiratory Rate 21 11/16/2023 7:23 AM QUALITY CONTROL CHECKER Oxygen Saturation 96% 11/16/2023 7:23 AM QUALITY CONTROL CHECKER Inhaled Oxygen Concentration - - Weight 104.6 kg (230 lb 11.2 oz) 11/14/2023 2:26 AM QUALITY CONTROL CHECKER Height 167.6 cm (5' 6 ) 11/14/2023 2:26 AM QUALITY CONTROL CHECKER Body Mass Index 37.24 11/14/2023 2:26 AM QUALITY CONTROL CHECKER Plan of Treatment Health Maintenance Due Date Last Done Comments DIABETES ANNUAL FOOT EXAM 1966 DIABETES ANNUAL RETINAL EXAM 1966 DIABETES HBA1C Q 6 MONTHS 1966 DIABETES MICROALBUMIN ANNUAL SCREEN 1966 LDL CHOLESTEROL ANNUAL 1966 PNEUMOCOCCAL VACCINE 65+ YEA RS (2 of 2 - PCV) 09/21/2007 09/21/2006, 03/03/1992 ZOSTER VACCINE (2 of 3) 02/14/2013 12/20/2012 OSTEOPOROSIS SCREENING 2013 DTAP/TDAP/TD VACCINES (2 - T d or Tdap) 12/20/2022 12/20/2012, 09/11/2004 RSV VACCINE (60+ or ) (1 - 1-dose 75+ series) 2023 INFLUENZA VACCINE (#1) 2024 , 07/14/2019, 08/24/2015, Additional history exists COVID-19 Vaccine (3 - 2023-2 5 season) 2024 05/03/2021, 04/12/2021 Medicare [place] ([place]) Preventative Visit/Annual Wellness Visit 10/14/2024 Insurance [facility] [address] PPO [facility] [id number] Advance Directives For more information, please contact: [phone] * Full Code (Latest Code Status on File) Date Activated Date Inactivated Comments 11/14/2023 5:11 AM 11/16/2023 3:51 PM Care Teams Quality Control Chemist Relationship Specialty Start Date End Date Lorena Anthony MD [address] [address] PCP - General Family Practice 11/14/23
--- OUTSIDE RECORDS SUMMARY | 2024-12-05 10:12 | XMS_ITS ---
Author Organization [facility] Address [address] [place], [place] [id number] Care Team Providers Care Student Ministry Pastor Name Role Phone ANGELO Aden Unavailable [phone] James Candelaria Unavailable Unavailable FARNAZ VASQUEZ Unavailable [phone] Allergies Allergen (clinical drug ingredient) Drug/Non Drug [...] for 30 Days Active TRUEplus 5-Bevel Pen [place] 31G X 8 MM for 33 Days Active HumuLIN R U-500 KwikPen 500 UNIT/ML Subcutaneous for 24 Days Act ines Encounters Encounter Location Date Provider Diagnosis [facility] [address] [place], [place] [id number] 10/01/2024 FARNAZ VASQUEZ Xerosis cutis L85.3 ; Tinea unguium B35.1 ; Unspecified atherosclerosis of [place] arteries of extremities, bilateral legs I70.203 ; [...] and prescription treatments. 10/01/2024 Unspecified atherosclerosis of [place] arteries of extremities, bilateral legs (ICD-10 - [...] OTC and prescription treatments. Unspecified atherosclerosis of [place] arteries of extremities, bilateral legs Patient educated [...] Months, Reason: Provider Name:NED OSHEA, 10:50:00 AM, [address] [place] [address], [id number], Progress Notes * ORQUIDEA JARVISOB: [birth year] (74 yo F)Acc No.[id number]:10/01/2024 Patient: ALLEN ESPINOSAMARIELLEYADIRA Provider: Marquise VASQUEZ :1950 A ge:74 Y S ex:Female Date:10/01/2024 Address:[address] [place] [address] Subjective: * Chief Complaints: * 1 . [...] seen by Dr. Candelaria was 03/2024., Initials [facility]. * ROS: G eneral / Constitutional: [...] injector Subcutaneous , Taking TRUEplus 5-Bevel Pen [place] 31G X 8 MM Miscellaneous , Taking [...] - L85.3 ?3. U nspecified atherosclerosis of [place] arteries of extremities, bilateral legs - I70.203? [...] feet daily. 3. U nspecified atherosclerosis of [place] arteries of extremities, bilateral legs Notes: Patient [...] Months * Billing Information: * Visit Code: 65763 Office Visit, Est Pt., Level 3. * Procedure Codes: * Electronic signature of ARY VASQUEZ DPM on 12/05/2024 at 10:11 AM MANAGER CLINICAL PHARMACY Sign off status: Pending * Provider: Marquise VASQUEZ Date: 1 12/02/2023 Generated for Rianna rich/Gilberto/Rosemaryitting on: 0 12/05/2024 10:11 AM MANAGER CLINICAL PHARMACY History and Physical Notes * HPI (History [...]
--- OUTSIDE RECORDS SUMMARY | 2024-12-05 10:12 | XMS_ITS | Encounter Summary ---
Author Organization [facility] Address Formerly [facility], [address] [place] [address] Care Team Providers Care Customer Service Sales Consultant Name Role Phone Unavailable Primary Care Provider Unavailabl e Encounter Details Date Type Department Care Team (Late st Contact Info) Description 03/21/2019 Abstract [facility] CONVERSION [address] [place] [address] , Generic Conversion, Social History Tobacco Use Types Packs/Day Years Used Date Smoking Tobacco: Never Assessed Comments Unknown Sex and Gender Information Value Date Recorded Sex Assigned at Not on file Legal Sex Female 11:13 PM ACID CHANGER Gender Identity Not on file Sexual Orientation Not on file documented as of this encounter Plan of Treatment Not on file documented as of this encounter Visit Diagnoses Not on filedocumented in this encounter
[2024-12-05 10:41] LABS: Albumin Level 4.1 g/dL (3.5-5.1); Anion Gap 10 mmol/L (4-12); Blood Urea Nitrogen 41 mg/dL (7-17); Calcium 9.4 mg/dL (8.4-10.2); Carbon Dioxide 30 mmol/L (22-30); Chloride 103 mmol/L (98-107); Estimated Glomerular Filt Rate 22; Glucose 149 mg/dL (65-110); Phosphorus 3.5 mg/dL (2.5-4.5); Potassium 3.7 mmol/L (3.4-5.0); Sodium 143 mmol/L (137-145)
[2024-12-05 11:06] LABS: Creatinine Urine 74.5 mg/dL
[2024-12-05 11:10] LABS: Total Protein Urine Random > 200 mg/dL
[2024-12-05 11:11] LABS: Ur Ttl Prot Creatinine Ratio > 2.68 mg/mg (0-0.20)
== END 2024-12-05 10:08 | disposition home or self-care (01) ==
PROVIDERS: PCP Family Medicine; Visit Provider Internal Medicine Nephrology
DX: I12.9 Hypertensive chronic kidney disease with stage 1 through stage 4 chronic kidney disease, or unspecified chronic kidney disease (principal); N18.4 Chronic kidney disease, stage 4 (severe); E11.22 Type 2 diabetes mellitus with diabetic chronic kidney disease; R80.9 Proteinuria, unspecified
CPT/HCPCS: 36415; 80069; 82570; 84156

== ENCOUNTER 2025-01-05 09:51 | Outpatient (CLI) | payer MEDICARE, SELFPAY ==
--- NOTE | ~2025-01-05 | MR_ITS ---
EXAMINATION: MR brain/brain stem wo/w con DATE: 01/05/2025 11:02 INDICATION: Benign neoplasm of the meninges TECHNIQUE: Magnetic resonance imaging (MRI) of the brain and brainstem was performed without and with 15 mL ProHance intravenous contrast. Sequences included sagittal and axial T1-weighted SE, axial dif fusion-weighted FS SE, axial 3D SWAN, axial T2-weighted FLAIR, and axial T2-weighted FSE. Postcontras t axial and coronal T1-weighted SE was obtained. Apparent diffusion coefficient (ADC) maps were creat ed. COMPARISON: 06/30/2024 and 11/13/2023 FINDINGS: No interval change in a 4.4 x 3.7 x 3.9 cm enhancing extra-axial mass anterior to the right temporal lobe which demonstrated calcifications on prior CT. The imaging features and interval stability would be most consistent with a meningioma. No other abnormally enhancing lesions identified. There are no areas of restricted diffusion to suggest acute infarction. No intracranial hemorrhage or abnormal in tracranial mass lesion. There are scattered areas of nonspecific increased T2-weighted signal intensi ty in the cerebral white matter, predominantly involving the deep and periventricular white matter. T here are no intraparenchymal signal abnormalities seen on the other pulse sequences. The ventricles a re symmetric and normal in size. There are no abnormal extra-axial fluid collections. Flow voids are seen in the cerebral arteries on the T2-weighted sequences consistent with their expected patency. Ch anges of bilateral intraocular lens replacement. Mild mucosal thickening in the bilateral ethmoid sin uses. Mastoid air cells are normal. IMPRESSION: 1. 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 2. Moderate scattered nonspecific cerebral white matter T2 hyperintensity consistent with chronic sma ll vessel ischemic disease. Reviewed, dictated and finalized at location B. IMPRESSION: 1. No interval change since 11/13/2023 in a 4.4 cm right sphenoid wing meningiom a. 2. Moderate scattered nonspecific cerebral white matter T2 hyperintensity consi stent with chronic small vessel ischemic disease.
--- OUTSIDE RECORDS SUMMARY | 2025-01-05 11:22 | XMS_ITS | Clinical Summary ---
Author Organization [facility] Address [address] [place] [address] Care Team Providers Care Newspaper Photo Editor Name Role Phone Unavailable Primary Care Provider Unavailabl e Family History Medical History Relation Name Comments Breast Cancer Neg Hx Social History Tobacco Use Types Packs/Day Years Used Date Smoking Tobacco: Never Assessed Comments Unknown Sex and Gender Information Value Date Recorded Sex Assigned at Not on file Legal Sex Female 2:42 AM CHIEF DEPUTY CLERK/BAILIFF Gender Identity Not on file Sexual Orientation [...] CAD W BONITA Routine 12/09/2013 8:40 AM CHIEF DEPUTY CLERK/BAILIFF Other screening mammogram from Last 3 Months or Most Recently Relevant to Health Maintenance Results * GARY SCREENING BILATERAL DIGITAL W CAD W BONITA (12/09/2013 8:40 AM CHIEF DEPUTY CLERK/BAILIFF) Anatomical Region Laterality Modality breast Bilateral Mammography, Oth er 12/09/2013 8:40 AM CHIEF DEPUTY CLERK/BAILIFF Impressions 12/09/2013 11:35 AM CHIEF DEPUTY CLERK/BAILIFF IMPRESSION: No evidence of malignancy. ASSESSMENT: Right [...] IMAGING WORKUP WILL BE SCHEDULED BY THE [facility]. Narrative 12/09/2013 11:35 AM CHIEF DEPUTY CLERK/BAILIFF BILATERAL SCREENING MAMMOGRAM WITH TOMOSYNTHESIS TECHNIQUE: Bilateral [...] IMAGING WORKUP WILL BE SCHEDULED BY THE [facility]. us Zaid Arenas MD IMG MAMMO ORDERABLES Final R esult from Last 3 Months or Most Recently Relevant to Health Maintenance
--- OUTSIDE RECORDS SUMMARY | 2025-01-05 11:22 | XMS_ITS | Encounter Summary ---
Author Organization [facility] Address [address] [place] [address] Care Team Providers Care Skilled Nursing Professional Name Role Phone James Candelariah Primary Care Provider Encounter Details Date Type Department Care Team (Late st Contact Info) Description 12/21/2024 Telephone [facility] Medical Group Cardiology [address] [place] [address] Hussain Rollins MD [address] [id number] Social History Tobacco Use Types Packs/Day Years [...] on file Legal Sex Female 3:26 AM SENIOR BIOINFORMATICS SPECIALIST Gender Identity Female 05/22/2019 11:23 AM CDT Sexual Orientation Straight 10/24/2021 7: 58 AM SENIOR BIOINFORMATICS SPECIALIST documented as of this encounter Miscellaneous Notes * Telephone Encounter - Tiffany Sin MA - 01/04/2025 11:26 AM CDT Waiting on fax from Mahamed'viri with patient's insurance information for Vescepa. * Telephone Encounter - Tiffany Sin MA - 12/21/2024 10:[address] Rollins, Is there an alternative medication for this patient to replace Vascepa? No patient assistance available due to patient having Medicare plan. * Telephone Encounter - Richa Osullivan - 12/21/2024 9:23 AM CDT Pt states Vascepa is no longer affordable. Requesting an alternative. Contact: documented in this encounter Plan of Treatment Not on file documented as of this encounter Visit Diagnoses Not on filedocumented in this encounter Care Teams Skilled Nursing Professional Relationship Specialty Start Date End Date James Candelaria DO [address] [place] [address] PCP - General Family Medicine 01/28/24 documented as of this encounter
--- OUTSIDE RECORDS SUMMARY | 2025-01-05 11:22 | XMS_ITS ---
Author Organization [facility] Address [address] [place], [place] [address] Care Team Providers Care Sex Therapist Name Role Phone ANGELO Aden Unavailable [phone] James Candelaria Unavailable Unavailable FARNAZ VASQUEZ Unavailable [phone] REASON FOR VISIT *General care Encounters Encounter Location Date Provider Diagnosis [address] [id number] 09/24/2024 FARNAZ VASQUEZ Plan Of Treatment Next Appt Details Provider Name:BOUBACAR CHRISTIANSON, 02/16/2025 10:40:00 AM, [address] [facility] [address], [place], [id number], Progress Notes * ODILON JARVISEEDOB: [birth year] (74 yo F)Acc No.[id number]:09/24/2024 Patient: Viv LIZZY HOWARD Provider: Marquise VASQUEZ :1950 A ge:74 Y S ex:Female Date:09/24/2024 Address:[address] [place] [address] [id number] Subjective: * Chief Complaints: * 1 . *General care. * Medical History: Objective: * Vitals: Assessment: Plan: * Treatment: * Billing Information: * Visit Code: * Procedure Codes: * Electronic signature of ARY VASQUEZ DPM on 01/05/2025 at 11:22 AM CDT Sign off status: Pending * Provider: Marquise VASQUEZ Date: 1 11/25/2023 Generated for Rianna rich/Gilberto/Ana Maria on: 0 01/05/2025 11:22 AM CDT
--- OUTSIDE RECORDS SUMMARY | 2025-01-05 11:22 | XMS_ITS | Encounter Summary ---
Author Organization [facility] Address [address] [place] [address] Care Team Providers Care Assessment Clinician Name Role Phone Lisaann marieJamesh Primary Care Provider Encounter Details Date Type Department Care Team (Late st Contact Info) Description 12/16/2024 Telephone [facility] Medical Group Cardiology [address] [place] [address] Hussain Rollins MD [address] [address] Social History Tobacco Use Types [...] file Legal Sex Female 3:26 AM SENIOR ENERGY ANALYST Gender Identity Female 05/22/2019 11:23 AM CDT Sexual Orientation Straight 10/24/2021 7: 58 AM SENIOR ENERGY ANALYST documented as of this encounter Miscellaneous Notes * Telephone Encounter - Melissa Crowe MA - 12/16/2024 11:47 AM SENIOR ENERGY ANALYST Spoke with Bassam at [facility] and 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 She stated that she is out of the pill and the insurance is saying they need a PA. Please advise. Thank you. Contact: OR ENERGY ANALYST * Telephone Encounter - Melissa Crowe MA - 12/16/2024 11:13 AM SENIOR ENERGY ANALYST Looks like pt is not due for refill until March. Left msg for pt OR ENERGY ANALYST * Telephone Encounter - Richa Osullivan - 12/16/2024 10:58 AM CST Patient requesting refill for Metoprolol 25 mg with 90 day supply. Please send to [facility]. Thank you. Contact: OR ENERGY ANALYST documented in this encounter Plan of Treatment Not on file documented as of this encounter Visit Diagnoses Not on filedocumented in this encounter Care Teams Assessment Clinician Relationship Specialty Start Date End Date James Candelaria DO [facility] [place] [address] PCP - General Family Medicine 01/28/24 documented as of this encounter
--- OUTSIDE RECORDS SUMMARY | 2025-01-05 11:22 | XMS_ITS | Clinical Summary ---
Author Organization [facility] Address [address] [place] [address] Phone Care Team Providers Care Latin Dance Instructor Name Role Phone Lorena Anthony MD Primary Care Provider +1- [phone] Allergies Active Allergy Reactions Criticality Noted Date [...] 20 MG tablet 05/10/2021 Active TRUEplus Pen [place] 31G X 8 MM misc 11/02/2021 Active [...] diabetic kidney complication 10/10/2014 Coronary arteriosclerosis in [place] artery 08/19 Overview (07/05/2019): Overview: CAD (coronary [...] 10/20/2014, 08/21/2012, Additional history exists Care Teams Latin Dance Instructor Relationship Specialty Start Date End Date Lorena Anthony MD [address] [facility] [address] [place] [address] PCP - General Internal Medicine 04/27/20
--- OUTSIDE RECORDS SUMMARY | 2025-01-05 11:22 | XMS_ITS | Clinical Summary ---
Author Organization [facility] Address [address] [place] [address] Care Team Providers Care Candy Counter Clerk Name Role Phone Unavailable Primary Care Provider Unavailabl e Source Comments [facility],non-owned Affiliates and Associated Physician Practices is amultiple site organization consisting of ambulatory clinics and hospital sitesin [place], [place], [place] and [place]. This disclosure is being madepursuant to the Care Everywhere program and may not contain all information available regarding this patient. Last updated 18.[facility] Active Problems Problem Noted Date Diagnosed Date [...] 75+ series) 2023 COVID-19 VACCINE (3 - season) 2024 05/03/2021, 04/12/2021 INFLUENZA VACCINE (#1) [...] complete this topic MENINGOCOCCAL (Group B) VACCINE SHARED DECISION-MAKING Aged Out No longer eligible based on patient's age to complete this topic MENINGOCOCCAL GROUPS A/C/Y/W VACCINE Aged Out No longer eligible based on patient's age to complete this topic
--- OUTSIDE RECORDS SUMMARY | 2025-01-05 11:23 | XMS_ITS ---
Author Organization [facility] Address [address] [place], [place] [id number] Care Team Providers Care Diet Counselor Name Role Phone ANGELO Aden Unavailable [phone] James Candelaria Unavailable Unavailable NED HOLDER Unavailable [phone] Allergies Allergen (clinical drug ingredient) Drug/Non Drug Allergy documented on EMR Reaction Allergy Type Onset Date Status Tape Unknown Allergy Active REASON FOR VISIT Patient presents for at-risk foot care . The patient has painful toenails that are causing difficulty with ambulation and shoegear. The onset is gradual. The patient has diabetes mellitus Medications Medication SIG (Take, Route, Frequency, Duration) Notes Start Date End Date Status Pantoprazole Sodium 40 MG Oral for 30 Days Active Atorvastatin Calcium 80 MG Oral for 90 Days Active Calcitriol 0.25 MCG Oral for 28 Days Active Brilinta 90 MG Oral for 30 Days Active Nitroglycerin 0.4 MG Sublingual for 8 Days Active HumuLIN R U-500 KwikPen 500 UNIT/ML Subcutaneous for 24 Days Act ines Furosemide 20 MG Oral for 30 Days Active Metoprolol Tartrate 25 MG Oral for 90 Days Active Potassium Citrate ER 10 MEQ (1080 MG) Oral for 30 Days Active TRUEplus 5-Bevel Pen [place] 31G X 8 MM for 33 Days Active Icosapent Ethyl 1 GM Oral for 30 Days Active OneTouch Verio - In Vitro for 100 Days Active Encounters Encounter Location Date Provider Diagnosis [address] [id number] 12/17/2024 NED HOLDER Tinea unguium B35.1 ; Pain in right toe(s) M79.674 ; Pain in left toe(s) M79.675 ; Atherosclerosis of [place] arteries of extremities with intermittent claudication, bilateral legs I70.213 and Type 2 diabetes mellitus with other circulatory complications E11.59 Assessments Encounter Date Diagnosis (ICD Code) Assessment Notes Treatment Notes Treatment Clinical Notes Section Notes 12/17/2024 Tinea unguium (ICD-10 - B35.1) NAIL DEBRIDEMENT: Nails 1-5 Bilateral were debrided extensively with nail nippers and emery board, reducing length and girth to pink healthy tissue with any subungual debris and necrotic tissue removed 12/17/2024 Pain in right toe(s) (ICD-10 - M79.674) 12/17/2024 Pain in left toe(s) (ICD-10 - M79.675) 12/17/2024 Atherosclerosis [place] arteries of extremities with intermittent claudication, bilateral legs (ICD-10 - I70.213) 12/17/2024 Type 2 diabetes mellitus with other circulatory complications (ICD-10 - E11.59) Diabetic Foot Care: The patient was educated on diabetes and the lower extremity. The patient was instructed to check his feet daily to report any problems or signs of infection immediately. The patient was provided written information on Diabetic Foot Care as well as the Amputation Prevention Guide. Plan Of Treatment Treatment Notes Assessment Notes Tinea unguium NAIL DEBRIDEMENT: Na ils 1-5 Bilateral were debrided extensively with nail nippers and emery board, reducing length and girth to pink healthy tissue with any subungual debris and necrotic tissue removed Type 2 diabetes mellitus wit h other circulatory complications Diabetic Foot Care: The patient was educated on diabetes and the lower extremity. The patient was instructed to check his feet daily to report any problems or signs of infection immediately. The patient was provided written information on Diabetic Foot Care as well as the Amputation Prevention Guide. Next Appt Details Follow Up: 10 - 12 weeks, Re ason: At-Risk Foot care, sooner if problems develop. Provider Name:BOUBACAR CHRISTIANSON, 02/16/2025 10:40:00 AM, [address] [facility], [place], [place], [id number], Progress Notes * ORQUIDEA JARVISOB: [birth year] (74 yo F)Acc No.[id number]:12/17/2024 Patient: LIZZY ESPINOSA Provider: Richard Holder DPM :1950 A ge:74 Y S ex:Female Date:12/17/2024 Address:[address] [place] [address] Subjective: * Chief Complaints: * 1 . Patient presents for at-risk foot care . The patient has painful toenails that are causing difficulty with ambulation and shoegear. The onset is gradual. The patient has diabetes mellitus. * HPI: H PI: General care P atient presents to the office for diabetic foot care. Patient states that their nails are thickened, elongated and painful. Patient states that it is aggravated by shoe gear. Onset is gradual., Patient is taking prescription blood thinners., Date last seen by Dr. Candelaria was 12/2023., Initials [facility]. * ROS: G eneral / Constitutional: Patient denies c hills, fever, weight loss. ? M usculoskeletal: Patient denies w eakness, broken foot bone. ? P eripheral Vascular: Patient denies p ain / cramping in legs after exertion, ulceration of feet. S kin: Patient complains of f ungal nails, nail changes. ? N eurologic: Patient denies b alance difficulty, confusion, dizziness, difficulty speaking. * Medical History: * Family History: F ather: PRN - Father: :: Cancer,,known absent . M other: PRN - Mother: :: Cancer,,known absent . B rother: SIB - Brother: :: Heart disease,,known absent . * Social History: M igrated Social History: M igrated Social History: Smoking Status : Former tobacco user , History of tobacco use :. * Medications: T aking Calcitriol 0.25 MCG [...] injector Subcutaneous , Taking TRUEplus 5-Bevel Pen [place] 31G X 8 MM Miscellaneous , Taking Potassium Citrate ER 10 MEQ (1080 MG) Tablet Extended Release Oral , Taking Metoprolol Tartrate 25 MG Tablet Oral , Taking Nitroglycerin 0.4 MG Tablet Sublingual Sublingual , Taking Brilinta 90 MG Tablet Oral , Medication List reviewed and reconciled with the patient * Allergies: T ape. Objective: * Vitals: * Examination: P hysical Examination: General appearance: A lert, pleasant, well-nourished and in no acute distress. D ermatologic: Skin findings: S kin is thin, atrophic and lacking pedal hair. Nail pathology: N ails 1, 2, 3, 4, and 5 bilateral are elongated, thick, discolored, and dystrophic with subungual debris. They are painful to palpation. ? V ascular: Dorsalis pedis pulse: 1 /4 b ilateral. Posterior tibial pulse: 0 /4 bilateral. Capillary refill: g reater than 3 seconds. Edema: N o edema bilateral. N eurologic: Gross sensation G rossly intact to light touch. There is negative Tinel's sign. M usculoskeletal: Muscle Strength M uscle strength is 5/5 in regards to dorsiflexion, plantarflexion, inversion, and eversion in bilateral lower extremities. ? Assessment: * Assessment: 1. T inea unguium - B35.1 (Primary) 2 . P ain in right toe(s) - M79.674? 3. P ain in left toe(s) - M79.675 4 . A therosclerosis of [place] arteries of extremities with intermittent claudication, bilateral legs - I70.213 5 . T ype 2 diabetes mellitus with other circulatory complications - E11.59 Plan: * Treatment: 2. T ype 2 diabetes mellitus with other circulatory complications Notes: Diabetic Foot Care: The patient was educated on diabetes and the lower extremity. The patient was instructed to check his feet daily to report any problems or signs of infection immediately. The patient was provided written information on Diabetic Foot Care as well as the Amputation Prevention Guide. * Follow Up: 1 0 - 12 weeks (Reason: At-Risk Foot care, sooner if problems develop.) * Billing Information: * Visit Code: 90446 Office Visit, Est Pt., Level 3. * Procedure Codes: * Electronic signature of NED SNOOK , DPM on 01/05/2025 at 11:22 AM CDT Sign off status: Pending * Provider: Richard Holder DPM Date: 0 12/17/2024 Generated for Rianna Miller/Ana Maria on: 0 01/05/2025 11:22 AM CDT History and Physical Notes * HPI (History of Present Illness) Category Sub-Category Detail Notes Category Not es HPI General care Patient presents to the office for diabetic foot care. Patient states that their nails are thickened, elongated and painful. Patient states that it is aggravated by shoe gear. Onset is gradual., Patient is taking prescription blood thinners., Date last seen by Dr. Candelaria was 12/2023., Initials [facility] Examination Category Sub-Category Detail Notes Category Not es Dermatologic Skin findings: Skin is thin, at rophic and lacking pedal hair Nail pathology: Nails 1, 2, 3, 4, an d 5 bilateral are elongated, thick, discolored, and dystrophic with subungual debris. They are painful to palpation Neurologic Gross sensation Grossly intact t o light touch. There is negative Tinel's sign Vascular Dorsalis pedis pulse: 1/4 bilateral Edema: No edema bilateral Capillary refill: greater than 3 secon ds Posterior tibial pulse: 0/4 bilateral Physical Examination General appearance: Alert, pleasant, well-nourished and in no acute distress Musculoskeletal Muscle Strength Muscle strength is 5/5 in regards to dorsiflexion, plantarflexion, inversion, and eversion in bilateral lower extremities
--- OUTSIDE RECORDS SUMMARY | 2025-01-05 11:23 | XMS_ITS | Clinical Summary ---
Author Organization [facility] Address [address] [place] [address] Care Team Providers Care Retail Loan Originator Assistant Name Role Phone James Candelariah Primary Care Provider Allergies Active Allergy Reactions Criticality Noted Date Comments Adhesive Rash Medium Apricot Anaphylaxis,Rash High 04/23/2022 Other Rash Medium 04/23/2022 Clothing dye [place] Anaphylaxis,Rash High 04/23/2022 Prochlorperazine Anaphylaxis High Medications cholecalciferol (VITAMIN D3) 400 unit capsule take 1 by Oral route once 0 0 6 Active TRUEplus Pen Needle 31 gauge x 5/16 needle 1 Active calcitRIOL (ROCALTROL) 0.25 mcg capsule 1 capsule (0.25 mcg total) as directed -- take in the AM 2 Active insulin regular U-500 (HumuLIN R) 500 unit/mL CONCENTRATED vial for injectionIndicati ons:Diabetes Mellitus with Severe Insulin Resistance Inject under the skin as directed 100 Units at breakfast, 55 units at lunch, 95 units at dinner, do not take any if blood sugar less than 120. 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 Take 1 tablet (81 mg total) by mouth daily 4 Active nitroglycerin (Nitrostat) 0.4 mg SL tabletIndications :Coronary artery disease involving tuscarora coronary artery of tuscarora heart without angina pectoris Place 1 tablet (0.4 mg total) under the tongue every 5 (five) minutes as needed for chest pain 25 tablet 3 4 05/04/[address] (PROTONIX) 40 mg EC tablet TAKE ONE TABLET BY MOUTH TWICE A DAY 60 tablet 11 4 Active metoprolol tartrate (LOPRESSOR) 25 mg immediate release tabletIndications :Coronary artery disease involving tuscarora coronary artery of tuscarora heart without angina pectoris TAKE HALF A TABLET BY MOUTH TWICE A DAY 90 tablet 1 4 Active clopidogreL (PLAVIX) 75 mg tablet Take 1 tablet (75 mg total) by mouth daily 30 tablet 11 5 11/02/19 26 Active Vascepa 1 gram capsule Take 1 capsule (1 g total) by mouth 2 (two) times a day 60 capsule 11 5 11/16/19 26 Active cloNIDine (CATAPRES) 0.1 mg tablet TAKE ONE TABLET BY MOUTH TWICE A DAY 180 tablet 3 5 Active atorvastatin (LIPITOR) 80 mg tabletIndications :Hyperlipidemia associated with type 2 diabetes mellitus (HCC),Coronary artery disease involving tuscarora coronary artery of tuscarora heart without angina pectoris TAKE ONE TABLET BY MOUTH DAILY 90 tablet 3 5 Active Active Problems Problem Noted Date Diagnosed Date Syncope and collapse 11/21/2023 Anemia 05/21/2022 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, unspecified vessel or lesion type, unspecified whether tuscarora or transplanted heart 04/27/2022 Atypical chest pain 03/20/2022 Morbid (severe) obesity due to excess calories 0 03/20/2022 Body mass index 40.0-44.9, adult (CMS/HCC) 03/20 Morbid obesity 09/12/2021 NIMA (obstructive sleep apnea) 09/12/2021 Systolic ejection murmur 06/19/2019 Coronary artery disease of n ative artery of tuscarora heart with stable angina pectoris 03/20/2017 Hyperlipidemia associated with type 2 diabetes m lesli 03/20/2017 Atherosclerosis of coronary artery 08/19/2014 Overview (01/18/2017): CAD (coronary atherosclerotic disease) Hypertension associated with diabetes 08/19/2014 Overview (01/18/2017): Hypertension Diabetes mellitus 08/19/2014 Overview (01/18/2017): Diabetes Hyperlipidemia LDL goal <70 08/19/2014 Overview (01/18/2017): Hyperlipidemia Adiposity 08/19/2014 Overview (01/18/2017): Obesity Gastroesophageal reflux disease 08/19/2014 Overview (01/18/2017): GERD (gastroesophageal reflux disease) Encounters Date Type Department Care Team Description 12/21/2024 Telephone [facility] Cardiology [address] [place] [phone] Hussain Rollins MD 12/16/2024 Telephone [facility] Cardiology [address] [place] [phone] Hussain Rollins MD 11/30/2024 Telephone [facility] Cardiology [address] [place] [phone] Hussain Rollins MD 11/16/2024 Telephone [facility] Cardiology [address] [place] [phone] Hussain Rollins MD 11/02/2024 11:30 AM TENSION MACHINE OPERATOR - 11/02/2024 1:00 PM TENSION MACHINE OPERATOR Surgery [facility] [address] [place] [id number] Logan Ceron MD LEFT HEART CATHETERIZATION WITH CORONARY ANGIOGRAPHY AND WITH OR WITHOUT LEFT VENTRICULOGRAM [id number] 11/02/2024 9:10 AM TENSION MACHINE OPERATOR - 11/02/2024 6:46 PM TENSION MACHINE OPERATOR Hospital Encounter [facility] [address] [place] [id number] Logan Ceron MD 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, unspecified vessel or lesion type, unspecified whether tuscarora or transplanted heart Discharge Disposition: Discharge to home or self care from Last 3 Months Immunizations Immunization Administration [...] 08/19/2014 - Sleep apnea Coronary artery disease PA (myocardial infarction) (HCC) Hypertension Type 2 diabetes mellitus (HCC) PONV (postoperative nausea and vomiting) Cataract Motion sickness CKD (chronic kidney disease) Kidney stone Malignant neoplasm of left breast (HCC) Deafness in right ear Awareness under anesthesia Heart murmur 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, unspecified vessel or lesion type, unspecified whether tuscarora or transplanted heart Chronic pain disorder Brain tumor (benign) (HCC) [...] on file Legal Sex Female 3:26 AM TENSION MACHINE OPERATOR Gender Identity Female 05/22/2019 11:23 AM CDT Sexual Orientation Straight 10/24/2021 7: 58 AM TENSION MACHINE OPERATOR Obstetrics History Last Filed Vital Signs Vital Sign Reading Time Taken Comments Blood Pressure 179/69 11/02/2024 6:20 PM TENSION MACHINE OPERATOR Pulse 76 11/02/2024 6:30 PM TENSION MACHINE OPERATOR Temperature 36.6 C (97.9 F) 11/02/2024 6:30 PM TENSION MACHINE OPERATOR Respiratory Rate 24 11/02/2024 6:30 PM TENSION MACHINE OPERATOR Oxygen Saturation 96% 11/02/2024 6:10 PM TENSION MACHINE OPERATOR Inhaled Oxygen Concentration - - Weight 117.7 kg (259 lb 8 oz) 11/02/2024 9:26 AM TENSION MACHINE OPERATOR Height 167.6 cm (5' 6 ) 11/02/2024 9:26 AM TENSION MACHINE OPERATOR Body Mass Index 41.88 11/02/2024 9:26 AM TENSION MACHINE OPERATOR Plan of Treatment Health Maintenance Due Date [...] Hemoglobin A1C 07/31/2017 01/29/2017 eGFR 02/14/2018 02/14/2017, 0512/2016, 01/29/2017 DTaP/Tdap/Td Vaccine (2 - Td or Tdap) 12/20/2022 12/20/2012, 09/11/2004 Covid-19 Vaccine (2023-2 5 season) 2024 11/23/2021, 05/03/2021, 05/03/2021, Additional history exists Influenza Vaccine (#1) 2024 , 07/14/2019, 08/18/2016, Additional history exists Lipid Panel 11/21/2024 11/21/2023, 06/0 04/2022, 03/08/2021, Additional history exists Fall Risk Assessment 11/02/2025 11/02/2024 Breast Cancer Screening-Mammogram Discontinued 12/09/2013, 12/09/2013, 12/06/2012 Medical Devices Implanted Type [place] Dem[employer]ation Agent Device Identifier Shelf Expiration Date Model / Serial / Lot [employer] Resolute Procious 4mm 2.1-2.7fr 18mm 140cm Rapid Exchange Radiopaque [id number] - [id number] Implanted:Qty: 1 on 04/27/2022 by Logan Ceron MD at [facility] [employer] 01/06/2025 [id number] / / [id number] [employer] Resolute Jose 4mm 2.1-2.7fr 18mm 140cm Rapid Exchange Radiopaque [id number] - [id number] Implanted:Qty: 1 on 04/27/2022 by Logan Ceron MD at [facility] [employer] 08/22/2024 [id number] X / / [id number] [employer] Angio-Seal Vip 6fr Closere Device [id number] - [id number] Implanted:Qty: 1 on 04/27/2022 by Logan Ceron MD at [facility] [employer] 02/10/2023 [id number] / / [id number] Procedures Procedure Name Priority Date/Time Associated Diagnosis Comments POCT GLUCOSE DEVICE Routine 11/02/2024 2 :57 PM TENSION MACHINE OPERATOR TRLUML BALO ANGIOP 1ST ARTERY S&I [id number] Routine 11/02/2024 2:27 PM TENSION MACHINE OPERATOR 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, unspecified vessel or lesion type, unspecified whether tuscarora or transplanted heart CORONARY OCT, 1ST VESSEL Routine 11/02/2024 2:27 PM TENSION MACHINE OPERATOR 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, unspecified vessel or lesion type, unspecified whether tuscarora or transplanted heart VASCULAR ACCESS US GUIDANCE Routine 11/02/2024 2:27 PM TENSION MACHINE OPERATOR 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, unspecified vessel or lesion type, unspecified whether tuscarora or transplanted heart LEFT HEART CATHETERIZATION WITH CORONARY ANGIOGRAPHY AND WITH AND WITHOUT LEFT VENTRICULOGRAM Routine 11/02/2024 2:27 PM TENSION MACHINE OPERATOR 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, unspecified vessel or lesion type, unspecified whether tuscarora or transplanted heart MODERATE SEDATION FIRST 15MIN 5+ YEAR [id number] 11/02/2024 12:50 PM TENSION MACHINE OPERATOR 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, unspecified vessel or lesion type, unspecified whether tuscarora or transplanted heart POCT GLUCOSE DEVICE Routine 11/02/2024 1 2:10 PM TENSION MACHINE OPERATOR POCT GLUCOSE DEVICE Routine 11/02/2024 9 :22 AM TENSION MACHINE OPERATOR POCT LIPID PANEL Routine 11/21/2023 2:00 PM TENSION MACHINE OPERATOR 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 Hyperlipidemia associated with type 2 diabetes mellitus (HCC) EGFR Routine 02/14/2017 1:23 AM CDT HEMOGLOBIN A1C STAT 01/29/2017 12:02 PM CDT from Last 3 Months or Most Recently Relevant to Health Maintenance Results * POCT glucose (11/02/2024 2:57 PM TENSION MACHINE OPERATOR) Glucose, POC 166 70 - 199 mg/dL Blood 11/02/2024 2:57 PM TENSION MACHINE OPERATOR 11/02/2024 2:57 PM TENSION MACHINE OPERATOR us Logan Ceron MD LAB POCT ORDERABLES - DEVICE Fin al Result CHERYL [address] Department [place] [address] * LEFT HEART CATHETERIZATION WITH CORONARY ANGIOGRAPHY AND WITH AND WITHOUT LEFT VENTRICULOGRAM, VASCULAR ACCESS US GUIDANCE, CORONARY OCT, 1ST VESSEL, TRLUML BALO ANGIOP 1ST ARTERY S&I [id number] (11/02/2024 2:27 PM TENSION MACHINE OPERATOR) Anatomical Region Laterality Modality X-Ray Angiograph y Addenda Addendum by Logan Ceron MD on 11/02/2024 3:07 PM TENSION MACHINE OPERATOR CARDIAC CATHETERIZATION AND INTERVENTION REPORT DATE OF PROCEDURE: 11/02/24 INDICATION FOR PROCEDURE: Atypical chest discomfort, known CAD, abnormal MPI BRIEF CLINICAL HISTORY: Jessika Falk is a 74 y.o. female with CAD, history of inferior ST-elevation PA status post PCI/stenting of mid RCA at [...] morbid obesity, NIMA. Patient referred by Dr. Rollins for repeat coronary angiogram to re-evaluate coronary anatomy and rule out InStent restenosis. Patient states that she has been experiencing belching and gas which are somewhat similar to previous symptoms prior to her PCI. MPI from 09/30/2024 reportedly showed LVEF 61%; medium size, elgc-uu-ndnklhyi intensity basal inferior, basal inferolateral, mid inferior [...] groin hematoma, retroperitoneal bleed, vessel perforation; periprocedural PA, cardiac arrhythmias, stroke, contrast induced nephropathy, and [...] noncompliant balloon followed by balloon angioplasty using [employer] agent paclitaxel coated balloon Moderate sedation-CPT code 35358 and beyond MODERATE SEDATION: Midazolam 2 mg , Fentanyl 50 mcg, start time 1306 stop time 1427, total direct hccw-[id number]-ewec monitoring of conscious sedation 81 minutes (CPT 92212) TRAINED OBSERVER: Arlet Silva RN was trained [...] informed consent, patient was brought to the laborer operator and prepped and draped in the usual sterile manner. Time-out and immediate reassessment of the patient was performed. After local anesthesia with lidocaine, right radial artery access was taken with micropuncture needle under ultrasound guidance followed by insertion of a 6 Ivorian sheath. Patient received 5 mg of verapamil, 100 mcg of nitroglycerin through the sheath, and 5000 units of heparin. RCA angiogram was performed using 5 Ivorian JR4 catheter with significant difficulty due to tortuosity in the brachiocephalic artery and some spasm in the right radial artery. In light of this, access was taken in the left radial artery, followed by insertion of a 6 Ivorian sheath. Selective left coronary angiogram was performed using 5 Ivorian JL 3.5 diagnostic catheter. Estimated blood loss [...] mid RCA. RCA was engaged using 6 Ivorian 3DRC guide catheter through left radial access site. Bivalirudin was used for procedural anticoagulation. Patient received aspirin and loading dose of clopidogrel in the laborer operator. The stenosis in the mid RCA was crossed using the 0.014 luge guidewire. Next, IVUS was performed using [employer] [place] [employer] [place] catheter on manual pullback which showed diffuse ISR and intimal hyperplasia in the mid segment. Significant calcification was seen in the RCA. Balloon angioplasty was initially performed using a 4.0 x 10 mm [employer] wolverine cutting balloon, followed by balloon angioplasty using a 4.0 x 20 mm NC balloon at high inflation pressures for optimal vessel preparation. Next, balloon angioplasty was performed using 4.0 x 20 mm [employer] Agent paclitaxel coated balloon inflated up [...] 2. Tortuous right brachiocephalic artery 3. PCI-IVUS, BUS REPAIR SUPERVISOR using cutting balloon, NC balloon followed by balloon angioplasty using 4.0 x 20 mm [employer] AGENT paclitaxel coated balloon. PLAN/RECOMMENDATIONS: Dual antiplatelet therapy with aspirin and clopidogrel, in addition to other medications including high-intensity statin. Risk factor modification. Follow-up with Dr. Rollins. Voice recognition software was used to complete this document, therefore, water leak repairer variances may occur. Logan Ceron MD, [facility] 11/02/24 Logan Ceron MD CV CARDIAC CATH PROCEDURES Edite d Result - Final * POCT glucose (11/02/2024 12:10 PM TENSION MACHINE OPERATOR) Glucose, POC 184 70 - 199 mg/dL Blood 11/02/2024 12:1 0 PM TENSION MACHINE OPERATOR 11/02/2024 12:10 PM TENSION MACHINE OPERATOR Logan Ceron MD LAB POCT ORDERABLES - DEVICE Fin al Result Performing Organization Address [facility] de Phone Number CHERYL [id number] [place] [address] * POCT glucose (11/02/2024 9:22 AM TENSION MACHINE OPERATOR) Glucose, POC 194 70 - 199 mg/dL Blood 11/02/2024 9:22 AM TENSION MACHINE OPERATOR 11/02/2024 9:22 AM TENSION MACHINE OPERATOR Logan Ceron MD LAB POCT ORDERABLES - DEVICE Fin al Result Performing Organization Address [facility] [place] [address] [address] [place] [employer] [place] [address] * POCT lipid panel (11/21/2023 2:00 PM TENSION MACHINE OPERATOR) Cholesterol, POC 104 mg/dL HDL, POC 31 mg/dL Triglycerides, POC 165 mg/dL LDL Cholesterol POC 41 mg/dL Chol/HDL Ratio, POC 3.4 Non-HDL Cholesterol, POC 74 mg/dL Cholesterol Total, POC 104 mg/dL Capillary blood 11/21/2023 2 :00 PM TENSION MACHINE OPERATOR Hussain Rollins MD POINT OF CARE TEST ORDERA BLES Edited Result - Final * eGFR (02/14/2017 1:23 AM CDT) eGFR 14 mL/min/1.7 3 m2 [facility] Comment: Interpretive Data Reference Interval Normal >/= 90 mL/min/1.73m2 Mildly decreased* 60 - 89 mL/min/1.73m2 Mildly to moderately decreased 45 - 59 mL/min/1.73m2 Moderately to severely decreased 30 - 44 mL/min/1.73m2 Severely decreased 15 - 29 mL/min/1.73m2 Kidney Failure < 15 mL/min/1.73m2 *Relative to young adult level If -[place] multiply value by 1.16. Estimated glomerular filtration [...] MD LAB BLOOD ORDERABLES Final Re sult [facility] [address] [place] [address] * (ABNORMAL) Hemoglobin A1c (01/29/2017 12:02 PM CDT) Hgb A1C 11.2(H) 4.0 - 6.0 % [facility] Blood specimen (specimen) 01/29/2017 12:02 PM CDT 01/29/2017 1:45 PM CDT us Will Mcmahon MD LAB BLOOD ORDERABLES Final Re sult [facility] [address] Department [place] [address] from Last 3 Months or Most Recently Relevant to Health Maintenance Insurance [facility] Address: [address] [address] [place] [address] [facility] Address: [address] [address] [place] [phone] [facility] ADVANTAGE [facility] Address: [facility] [address] [place] [address] Care Teams Retail Loan Originator Assistant Relationship Specialty Start Date End Date James Candelaria DO [address] [place] [address] PCP - General Family Medicine 01/28/24
--- OUTSIDE RECORDS SUMMARY | 2025-01-05 11:23 | XMS_ITS | Referral Summary ---
Author Organization [facility] Address [address] [place] [address] Care Team Providers Care Blood Bank Coordinator Name Role Phone James Candelaria Primary Care Provider Encounters Date Type Department Care Team Description 12/21/2024 Telephone [facility] Medical [facility] Cardiology [address] [facility] [address] [place] [phone] Hussain Rollins MD 12/16/2024 Telephone [facility] Cardiology [address] [facility] [address] [place] [phone] Hussain Rollins MD 11/30/2024 Telephone [facility] Cardiology [address] [facility] [address] [place] [phone] Hussain Rollins MD 11/16/2024 Telephone [facility] Cardiology [address] [place] [address] [address] [place] [phone] Hussain Rollins MD 11/02/2024 11:30 AM DIRECTOR STERILE PROCESSING - 11/02/2024 1:00 PM DIRECTOR STERILE PROCESSING Surgery [facility] Cardiac Catheterization Lab [address] [place] [address] Logan Ceron MD LEFT HEART CATHETERIZATION WITH CORONARY ANGIOGRAPHY AND WITH OR WITHOUT LEFT VENTRICULOGRAM [id number] 11/02/2024 9:10 AM DIRECTOR STERILE PROCESSING - 11/02/2024 6:46 PM DIRECTOR STERILE PROCESSING Hospital Encounter [facility] Cardiac Catheterization Lab [address] [place] [address] Logan Ceron MD 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, unspecified vessel or lesion type, unspecified whether [place] or transplanted heart Discharge Disposition: Discharge to home or self care from Last 3 Months Allergies Active Allergy Reactions Criticality Noted Date Comments Adhesive Rash Medium Apricot Anaphylaxis,Rash High 04/23/2022 Other Rash Medium 04/23/2022 Clothing dye Angelina Anaphylaxis,Rash High 04/23/2022 Prochlorperazine Anaphylaxis High Medications cholecalciferol (VITAMIN D3) 400 unit capsule take 1 by Oral route once 0 0 6 Active TRUEplus Pen Needle 31 gauge x /16 needle 1 Active calcitRIOL (ROCALTROL) 0.25 mcg capsule 1 capsule (0.25 mcg total) as directed -W- take in the AM 2 Active insulin [...] enteric coated tabletIndications :Coronary artery disease of [place] artery of [place] heart with stable angina pectoris Take 1 tablet (81 mg total) by mouth daily 4 Active nitroglycerin (Nitrostat) 0.4 mg SL tabletIndications :Coronary artery disease involving [place] coronary artery of [place] heart without angina pectoris Place 1 tablet (0.4 mg total) under the tongue every 5 (five) minutes as needed for chest pain 25 tablet 3 4 05/04/[address] (PROTONIX) 40 mg EC tablet TAKE ONE TABLET BY MOUTH TWICE A DAY 60 tablet 11 4 Active metoprolol tartrate (LOPRESSOR) 25 mg immediate release tabletIndications :Coronary artery disease involving [place] coronary artery of [place] heart without angina pectoris TAKE HALF A [...] 2 diabetes mellitus (HCC),Coronary artery disease involving [place] coronary artery of [place] heart without angina pectoris TAKE ONE TABLET BY MOUTH DAILY 90 tablet 3 5 Active Active Problems Problem Noted Date Diagnosed Date Syncope and collapse 11/21/2023 Anemia 05/21/2022 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, unspecified vessel or lesion type, unspecified whether [place] or transplanted heart 04/27/2022 Atypical chest pain 03/20/2022 Morbid (severe) obesity due to excess calories 0 03/20/2022 Body mass index 40.0-44.9, adult (CMS/HCC) 03/20 Morbid obesity 09/12/2021 NIMA (obstructive sleep apnea) 09/12/2021 Systolic ejection murmur 06/19/2019 Coronary artery disease of n ative artery of [place] heart with stable angina pectoris 03/20/2017 Hyperlipidemia associated with type 2 diabetes beverly ballesteros 03/20/2017 Atherosclerosis of coronary artery 08/19/2014 Overview [...] on file Legal Sex Female 3:26 AM DIRECTOR STERILE PROCESSING Gender Identity Female 05/22/2019 11:23 AM CDT Sexual Orientation Straight 10/24/2021 7: 58 AM DIRECTOR STERILE PROCESSING Last Filed Vital Signs Vital Sign Reading Time Taken Comments Blood Pressure 179/69 11/02/2024 6:20 PM DIRECTOR STERILE PROCESSING Pulse 76 11/02/2024 6:30 PM DIRECTOR STERILE PROCESSING Temperature 36.6 C (97.9 F) 11/02/2024 6:30 PM DIRECTOR STERILE PROCESSING Respiratory Rate 24 11/02/2024 6:30 PM DIRECTOR STERILE PROCESSING Oxygen Saturation 96% 11/02/2024 6:10 PM DIRECTOR STERILE PROCESSING Inhaled Oxygen Concentration - - Weight 117.7 kg (259 lb 8 oz) 11/02/2024 9:26 AM DIRECTOR STERILE PROCESSING Height 167.6 cm (5' 6 ) 11/02/2024 9:26 AM DIRECTOR STERILE PROCESSING Body Mass Index 41.88 11/02/2024 9:26 AM DIRECTOR STERILE PROCESSING Plan of Treatment Not on file Medical Devices Implanted Type Area Pigskin Trimmer Device Identifier Shelf Expiration Date Model / Serial / Lot [employer] Resolute [place] 4mm 2.1-2.7fr 18mm 140cm Rapid Exchange Radiopaque [id number] - [id number] Implanted:Qty: 1 on 04/27/2022 by Logan Ceron MD at [facility] [employer] 01/06/2025 [id number] / / [id number] [employer] Resolute [place] 4mm 2.1-2.7fr 18mm 140cm Rapid Exchange Radiopaque [id number] - [id number] Implanted:Qty: 1 on 04/27/2022 by Logan Ceron MD at [facility] [employer] 08/22/2024 [id number] / / [id number] [employer] Angio-Seal Vip 6fr Closere Device [id number] - [id number] Implanted:Qty: 1 on 04/27/2022 by Logan Ceron MD at [facility] [employer] 02/10/2023 [id number] / / [id number] Procedures Procedure Name Priority Date/Time Associated Diagnosis Comments POCT GLUCOSE DEVICE Routine 11/02/2024 2 :57 PM DIRECTOR STERILE PROCESSING TRLUML BALO ANGIOP 1ST ARTERY S&I [id number] Routine 11/02/2024 2:27 PM DIRECTOR STERILE PROCESSING 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, unspecified vessel or lesion type, unspecified whether [place] or transplanted heart CORONARY OCT, 1ST VESSEL Routine 11/02/2024 2:27 PM DIRECTOR STERILE PROCESSING 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, unspecified vessel or lesion type, unspecified whether [place] or transplanted heart VASCULAR ACCESS US GUIDANCE Routine 11/02/2024 2:27 PM DIRECTOR STERILE PROCESSING 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, unspecified vessel or lesion type, unspecified whether [place] or transplanted heart LEFT HEART CATHETERIZATION WITH CORONARY ANGIOGRAPHY AND WITH AND WITHOUT LEFT VENTRICULOGRAM Routine 11/02/2024 2:27 PM DIRECTOR STERILE PROCESSING 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, unspecified vessel or lesion type, unspecified whether [place] or transplanted heart MODERATE SEDATION FIRST 15MIN 5+ YEAR 30745 11/02/2024 12:50 PM DIRECTOR STERILE PROCESSING 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, unspecified vessel or lesion type, unspecified whether [place] or transplanted heart POCT GLUCOSE DEVICE Routine 11/02/2024 1 2:10 PM DIRECTOR STERILE PROCESSING POCT GLUCOSE DEVICE Routine 11/02/2024 9 :22 AM DIRECTOR STERILE PROCESSING POCT LIPID PANEL Routine 11/21/2023 2:00 PM DIRECTOR STERILE PROCESSING Coronary artery disease of [place] artery of [place] heart with stable angina pectoris Hyperlipidemia associated with type 2 diabetes mellitus (HCC) EGFR Routine 02/14/2017 1:23 AM CDT HEMOGLOBIN A1C STAT 01/29/2017 12:02 PM CDT from Last 3 Months or Most Recently Relevant to Health Maintenance Results * POCT glucose (11/02/2024 2:57 PM DIRECTOR STERILE PROCESSING) Glucose, POC 166 70 - 199 mg/dL Blood 11/02/2024 2:57 PM DIRECTOR STERILE PROCESSING 11/02/2024 2:57 PM DIRECTOR STERILE PROCESSING us Logan Ceron MD LAB POCT ORDERABLES - DEVICE Fin al Result [facility] [address] Department [place] [address] * LEFT HEART CATHETERIZATION WITH CORONARY ANGIOGRAPHY AND WITH AND WITHOUT LEFT VENTRICULOGRAM, VASCULAR ACCESS US GUIDANCE, CORONARY OCT, 1ST VESSEL, TRLUML BALO ANGIOP 1ST ARTERY S&I [id number] (11/02/2024 2:27 PM DIRECTOR STERILE PROCESSING) Anatomical Region Laterality Modality X-Ray Angiograph y Addenda Addendum by Logan Ceron MD on 11/02/2024 3:07 PM DIRECTOR STERILE PROCESSING CARDIAC CATHETERIZATION AND INTERVENTION REPORT DATE OF PROCEDURE: 11/02/24 INDICATION FOR PROCEDURE: Atypical chest discomfort, known CAD, abnormal MPI BRIEF CLINICAL HISTORY: Jessika Falk is a 74 y.o. female with CAD, history of inferior ST-elevation OK status post PCI/stenting of mid RCA at [...] 09/30/2024 reportedly showed LVEF 61%; medium size, gmzf-vj-dwzxwizc intensity basal inferior, basal inferolateral, mid inferior [...] groin hematoma, retroperitoneal bleed, vessel perforation; periprocedural OK, cardiac arrhythmias, stroke, contrast induced nephropathy, and [...] noncompliant balloon followed by balloon angioplasty using [employer] agent paclitaxel coated balloon Moderate sedation-CPT code 78711 and beyond MODERATE SEDATION: Midazolam 2 mg , Fentanyl 50 mcg, start time 1306 stop time 1427, total direct [id number] monitoring of conscious sedation 81 minutes (CPT 39722) TRAINED OBSERVER: Arlet Silva RN was trained [...] informed consent, patient was brought to the manager cath lab and prepped and draped in the usual sterile manner. Time-out and immediate reassessment of the patient was performed. After local anesthesia with lidocaine, right radial artery access was taken with micropuncture needle under ultrasound guidance followed by insertion of a 6 [place] sheath. Patient received 5 mg of verapamil, 100 mcg of nitroglycerin through the sheath, and 5000 units of heparin. RCA angiogram was performed using 5 [place] JR4 catheter with significant difficulty due to tortuosity in the brachiocephalic artery and some spasm in the right radial artery. In light of this, access was taken in the left radial artery, followed by insertion of a 6 [place] sheath. Selective left coronary angiogram was performed using 5 [place] JL 3.5 diagnostic catheter. Estimated blood loss [...] mid RCA. RCA was engaged using 6 [place] 3DRC guide catheter through left radial access site. Bivalirudin was used for procedural anticoagulation. Patient received aspirin and loading dose of clopidogrel in the manager cath lab. The stenosis in the mid RCA was crossed using the 0.014 luge guidewire. Next, IVUS was performed using [place] catheter on manual pullback which showed diffuse ISR and intimal hyperplasia in the mid segment. Significant calcification was seen in the RCA. Balloon angioplasty was initially performed using a 4.0 x 10 mm [employer] wolverine cutting balloon, followed by balloon angioplasty using a 4.0 x 20 mm NC balloon at high inflation pressures for optimal vessel preparation. Next, balloon angioplasty was performed using 4.0 x 20 mm [employer] Agent paclitaxel coated balloon inflated up [...] 2. Tortuous right brachiocephalic artery 3. PCI-IVUS, SLOT MACHINE KEY PERSON using cutting balloon, NC balloon followed by balloon angioplasty using 4.0 x 20 mm [employer] AGENT paclitaxel coated balloon. PLAN/RECOMMENDATIONS: Dual antiplatelet therapy with aspirin and clopidogrel, in addition to other medications including high-intensity statin. Risk factor modification. Follow-up with Dr. Rollins. Voice recognition software was used to complete this document, therefore, cell room operator variances may occur. Logan Ceron MD, [facility] 11/02/24 Logan Ceron MD CV CARDIAC CATH PROCEDURES Edite d Result - Final * POCT glucose (11/02/2024 12:10 PM DIRECTOR STERILE PROCESSING) Glucose, POC 184 70 - 199 mg/dL Blood 11/02/2024 12:1 0 PM DIRECTOR STERILE PROCESSING 11/02/2024 12:10 PM DIRECTOR STERILE PROCESSING Logan Ceron MD LAB POCT ORDERABLES - DEVICE Fin al Result Performing Organization Address [facility] de Phone Number [facility] [address] [address] [facility] [place] [address] * POCT glucose (11/02/2024 9:22 AM DIRECTOR STERILE PROCESSING) Glucose, POC 194 70 - 199 mg/dL Blood 11/02/2024 9:22 AM DIRECTOR STERILE PROCESSING 11/02/2024 9:22 AM DIRECTOR STERILE PROCESSING Logan Ceron MD LAB POCT ORDERABLES - DEVICE Fin al Result Performing Organization Address [facility] de Phone Number [facility] [address] [address] [facility] [place] [address] * POCT lipid panel (11/21/2023 2:00 PM DIRECTOR STERILE PROCESSING) Cholesterol, POC 104 mg/dL HDL, POC 31 mg/dL Triglycerides, POC 165 mg/dL LDL Cholesterol POC 41 mg/dL Chol/HDL Ratio, POC 3.4 Non-HDL Cholesterol, POC 74 mg/dL Cholesterol Total, POC 104 mg/dL Capillary blood 11/21/2023 2 :00 PM DIRECTOR STERILE PROCESSING us Hussain Rollins MD POINT OF CARE TEST ORDERA BLES Edited Result - Final * eGFR (02/14/2017 1:23 AM CDT) eGFR 14 mL/min/1.7 3 m2 [facility] Comment: Interpretive Data Reference Interval Normal >/= 90 mL/min/1.73m2 Mildly decreased* 60 - 89 mL/min/1.73m2 Mildly to moderately decreased 45 - 59 mL/min/1.73m2 Moderately to severely decreased 30 - 44 mL/min/1.73m2 Severely decreased 15 - 29 mL/min/1.73m2 Kidney Failure < 15 mL/min/1.73m2 *Relative to young adult level If -[place] multiply value by 1.16. Estimated glomerular filtration [...] ORDERABLES Final Re sult Performing Organization Address [facility]/ZIP Co de Phone Number [facility] [address] Department [place] [address] * (ABNORMAL) Hemoglobin A1c (01/29/2017 12:02 PM CDT) Hgb A1C 11.2(H) 4.0 - 6.0 % [facility] Blood specimen (specimen) 01/29/2017 12:02 PM CDT 01/29/2017 1:45 PM CDT us Will Mcmahon MD LAB BLOOD ORDERABLES Final Re sult [facility] [address] [place] [address] from Last 3 Months or Most Recently Relevant to Health Maintenance Insurance [facility] MEDICARE ADVANTAGE [facility] MDCR HMO REF [facility] [place] [address] Care Teams Blood Bank Coordinator Relationship Specialty Start Date End Date James Candelaria DO [address] [place] [address] PCP - General Family Medicine 01/28/24
--- OUTSIDE RECORDS SUMMARY | 2025-01-05 11:23 | XMS_ITS | Clinical Summary ---
Author Organization [facility] Address [facility] [place] [address] Care Team Providers Care Business Services Analyst Name Role Phone Unavailable Primary Care Provider Unavailabl e Social History Tobacco Use Types Packs/Day Years Used Date Smoking Tobacco: Never Assessed Comments Unknown Sex and Gender Information Value Date Recorded Sex Assigned at Not on file Legal Sex Female 11:13 PM PEER SPECIALIST Gender Identity Not on file Sexual Orientation Not on file Last Filed Vital Signs Vital Sign Reading Time Taken Comments Blood Pressure - - Pulse - - Temperature - - Respiratory Rate - - Oxygen Saturation - - Inhaled Oxygen Concentration - - Weight 113.4 kg (250 lb) 08/30/2015 3:53 PM PEER SPECIALIST Height 167.6 cm (5' 6 ) 08/30/2015 3:53 PM PEER SPECIALIST Body Mass Index 40.35 08/30/2015 3:53 PM PEER SPECIALIST Plan of Treatment Health Maintenance Due Date [...]
--- OUTSIDE RECORDS SUMMARY | 2025-01-05 11:23 | XMS_ITS | Patient Health Record ---
Author Organization [facility] Address [address] [place], [place] [id number] Care Team Providers Care Fretted String Instrument Repairer Name Role Phone ANGELO Aden Unavailable [phone] James Candelaria Unavailable Unavailable NED OSHEA Unavailable [phone] FARNAZ VASQUEZ Unavailable [phone] Allergies Allergen (clinical drug ingredient) Drug/Non Drug Allergy documented on EMR Reaction Allergy Type Onset Date Status Tape Unknown Allergy Active Reason For Referral No Information Medications Medication SIG (Take, Route, Frequency, Duration) Notes Start Date End Date Status HumuLIN R U-500 KwikPen 500 UNIT/ML Subcutaneous [...] for 30 Days Active TRUEplus 5-Bevel Pen Gueydan 31G X 8 MM for 33 Days Active Vital Signs Height-cm 167.64 cm 05/07/2024 Weight-kg 113.4 kg 05/07/2024 Height 66.00 in 05/07/2024 Weight 250 lbs 05/07/2024 BMI 40.35 kg/m2 05/07/2024 Encounters Encounter Location Date Provider Diagnosis [facility] [address] [id number] 10/01/2024 FARNAZ DAVYDOV Xerosis cutis L85.3 ; Tinea unguium B35.1 ; Unspecified atherosclerosis of [place] arteries of extremities, bilateral legs I70.203 ; Pain in right toe(s) M79.674 ; Pain in left toe(s) M79.675 ; Type 2 diabetes mellitus with diabetic peripheral angiopathy without gangrene E11.51 ; Acquired keratosis [keratoderma] palmaris et plantaris L85.1 ; Pain in right foot M79.671 and Pain in left foot M79.[address] [id number] 12/17/2024 NED DAYO Tinea unguium B35.1 ; Pain in right toe(s) M79.674 ; Pain in left toe(s) M79.675 ; Atherosclerosis of [place] arteries of extremities with intermittent claudication, bilateral legs I70.213 and Type 2 diabetes mellitus with other circulatory complications E11.[address] [id number] 02/13/2024 FARNAZ DAVYDOV Xerosis cutis L85.3 ; Tinea unguium B35.1 ; Unspecified atherosclerosis of [place] arteries of extremities, bilateral legs I70.203 ; Pain in right toe(s) M79.674 ; Pain in left toe(s) M79.675 and Type 2 diabetes mellitus with diabetic peripheral angiopathy without gangrene E11.[address] [id number] 04/23/2024 FARNAZ DAVYDOV Xerosis cutis L85.3 ; Tinea unguium B35.1 ; Unspecified atherosclerosis of [place] arteries of extremities, bilateral legs I70.203 ; Pain in right toe(s) M79.674 ; Pain in left toe(s) M79.675 and Type 2 diabetes mellitus with diabetic peripheral angiopathy without gangrene E11.[address] [id number] 05/07/2024 FARNAZ DAVYDOV Xerosis cutis L85.3 ; Tinea unguium B35.1 ; Unspecified atherosclerosis of [place] arteries of extremities, bilateral legs I70.203 ; Pain in right toe(s) M79.674 ; Pain in left toe(s) M79.675 and Type 2 diabetes mellitus with diabetic peripheral angiopathy without gangrene E11.51 [facility] [address] [place], [place] [id number] 07/23/2024 FARNAZ STERNLUZ Xerosis cutis L85.3 ; Tinea unguium B35.1 ; Unspecified atherosclerosis of [place] arteries of extremities, bilateral legs I70.203 ; [...] lotion to be applied to feet daily. 12/17/2024 Tinea unguium (ICD-10 - B35.1) NAIL DEBRIDEMENT: Nails 1-5 Bilateral were debrided extensively with nail nippers and emery board, reducing length and girth to pink healthy tissue with any subungual debris and necrotic tissue removed 10/01/2024 Unspecified atherosclerosis of [place] arteries of extremities, bilateral legs (ICD-10 - I70.203) Patient educated on risks and aggravating factors of PVD, including conservative treatment options such as a diet and exercise regimen to aid in slowing progression of vascular disease 05/07/2024 Unspecified atherosclerosis of [place] arteries of extremities, bilateral legs (ICD-10 - I70.203) Patient educated on risks and aggravating factors of PVD, including conservative treatment options such as a diet and exercise regimen to aid in slowing progression of vascular disease 12/17/2024 Pain in right toe(s) (ICD-10 - M79.674) 07/23/2024 Unspecified atherosclerosis of [place] arteries of extremities, bilateral legs (ICD-10 - I70.203) Patient educated on risks and aggravating factors of PVD, including conservative treatment options such as a diet and exercise regimen to aid in slowing progression of vascular disease 02/13/2024 Unspecified atherosclerosis of [place] arteries of extremities, bilateral legs (ICD-10 - I70.203) Patient educated on risks and aggravating factors of PVD, including conservative treatment options such as a diet and exercise regimen to aid in slowing progression of vascular disease 04/23/2024 Unspecified atherosclerosis of [place] arteries of extremities, bilateral legs (ICD-10 - [...] in left toe(s) (ICD-10 - M79.675) 10/01/2024 Pain in right toe(s) (ICD-10 - M79.674) 10/01/2024 Pain in left toe(s) (ICD-10 - M79.675) 12/17/2024 Atherosclerosis of [place] arteries of extremities with intermittent claudication, bilateral legs (ICD-10 - I70.213) 04/23/2024 Pain in left toe(s) (ICD-10 - [...] but not limited to nausea, vomiting, fever. 12/17/2024 Type 2 diabetes mellitus with other circulatory complications (ICD-10 - E11.59) Diabetic Foot Care: The patient was educated on diabetes and the lower extremity. The patient was instructed to check his feet daily to report any problems or signs of infection immediately. The patient was provided written information on Diabetic Foot Care as well as the Amputation Prevention Guide. 10/01/2024 Acquired keratosis [keratoderma] palmaris et plantaris [...] no infection or drainage was noted. 07/23/2024 Acquired keratosis [keratoderma] palmaris et plantaris [...] foot (ICD-10 - M79.671) 10/01/2024 Pain in right foot (ICD-10 - M79.671) 10/01/2024 Pain in left foot (ICD-10 - M79.672) 07/23/2024 Pain in left foot (ICD-10 - M79.672) Plan Of Treatment Next Appt Details Provider Name:BOUBACAR CHRISTIANSON, 02/16/2025 10:40:00 AM, [address] [facility], [place], [place], [id number], Insurance Providers Payer Name Payer Address Payer Phone Subscriber Number Group Number Insured Name Patient Relationship to Insured Coverage Start Date Coverage End Date [employer] MedicareCo mplete ([facility]) [address] [place], [place] [id number] LIZZY JARVIS Self - patient is the insured
--- OUTSIDE RECORDS SUMMARY | 2025-01-05 11:23 | XMS_ITS | Clinical Summary ---
Author Organization [facility] Address [address] [place] [address] Phone Care Team Providers Care Triage Assistant Name Role Phone Lorena Anthony MD Primary Care Provider [phone] Allergies Active Allergy Reactions Criticality Noted Date Comments Adhesive Unknown Medium 11/14/2023 Cefdinir Unknown 11/14/2023 Hydrocodone Unknown 11/14/2023 Jewell Anaphylaxis High 11/16/2023 Prochlorperazine Unknown 11/14/2023 Medications [...] 11/14/2023 History of COVID-19 11/14/2023 Atherosclerosis of alutiiq co ronary artery of alutiiq heart without angina pectoris 11/14/2023 S/P CABG (coronary artery bypass graft) 02/01/20 24 Type 2 diabetes mellitus wit hout complication, with long-term current use of insulin 11/14/2023 Primary hypertension 11/14/2023 CKD (chronic kidney disease) stage 4, GFR 15-29 ml/min 11/14/2023 Meningioma 11/14/2023 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 Encounters Date Type Department Care Team Description 12/03/2024 Abstract [facility] - [facility] [place] [address] [facility] [address] [place] [address] Romel Vernon MD 11/30/2024 Telephone [facility] - [facility] [place] [address] [facility] [address] [place] [address] Provider, Abstract fax number 11/24/2024 Telephone [facility] - [facility] [place] [address] [facility] [address] [place] [address] Romel Vernon MD Question 11/05/2024 [...] on file Legal Sex Female 7:46 PM BENDING MACHINE SET UP OPERATOR Gender Identity Not on file Sexual Orientation Not on file Last Filed Vital Signs Vital Sign Reading Time Taken Comments Blood Pressure 153/60 11/16/2023 7:23 AM BENDING MACHINE SET UP OPERATOR Pulse 66 11/16/2023 7:23 AM BENDING MACHINE SET UP OPERATOR Temperature 36.7 C (98.1 F) 11/16/2023 8:07 AM BENDING MACHINE SET UP OPERATOR Respiratory Rate 21 11/16/2023 7:23 AM BENDING MACHINE SET UP OPERATOR Oxygen Saturation 96% 11/16/2023 7:23 AM BENDING MACHINE SET UP OPERATOR Inhaled Oxygen Concentration - - Weight 104.6 kg (230 lb 11.2 oz) 11/14/2023 2:26 AM BENDING MACHINE SET UP OPERATOR Height 167.6 cm (5' 6 ) 11/14/2023 2:26 AM BENDING MACHINE SET UP OPERATOR Body Mass Index 37.24 11/14/2023 2:26 AM BENDING MACHINE SET UP OPERATOR Plan of Treatment Health Maintenance Due Date Last Done Comments DIABETES ANNUAL FOOT EXAM 1966 DIABETES ANNUAL RETINAL EXAM 1966 DIABETES HBA1C Q 6 MONTHS 1966 DIABETES MICROALBUMIN ANNUAL SCREEN 1966 LDL CHOLESTEROL ANNUAL 1966 PNEUMOCOCCAL VACCINE 50+ YEA RS (2 of 2 - PCV) [...] (MA) Preventative Visit/Annual Wellness Visit 10/14/2024 Insurance [facility] [address] PPO [facility] [address] [place] [address] Advance Directives For more information, please contact: [phone] * Full Code (Latest Code Status on File) Date Activated Date Inactivated Comments 11/14/2023 5:11 AM 11/16/2023 3:51 PM Care Teams Triage Assistant Relationship Specialty Start Date End Date Lorena Anthony MD [address] [address] PCP - General Family Practice 11/14/23
--- OUTSIDE RECORDS SUMMARY | 2025-01-05 11:23 | XMS_ITS ---
Author Organization [facility] Address [address] [place], [place] [address] Care Team Providers Care Miller Helper Name Role Phone ANGELO Aden Unavailable [phone] James Candelaria Unavailable Unavailable FARNAZ VASQUEZ Unavailable [phone] Allergies Allergen (clinical drug ingredient) Drug/Non Drug [...] for 30 Days Active TRUEplus 5-Bevel Pen [place] 31G X 8 MM for 33 Days Active HumuLIN R U-500 KwikPen 500 UNIT/ML Subcutaneous for 24 Days Act ines Encounters Encounter Location Date Provider Diagnosis [facility] [place] [address] [place], [place] [id number] 10/01/2024 FARNAZ VASQUEZ Xerosis cutis L85.3 ; Tinea unguium B35.1 ; Unspecified atherosclerosis of [place] arteries of extremities, bilateral legs I70.203 ; [...] and prescription treatments. 10/01/2024 Unspecified atherosclerosis of [place] arteries of extremities, bilateral legs (ICD-10 - [...] OTC and prescription treatments. Unspecified atherosclerosis of [place] arteries of extremities, bilateral legs Patient educated [...] Up: 3 Months, Reason: Provider Name:BOUBACAR CHRISTIANSON, 02/16/2025 10:40:00 AM, 2 [facility], [address], [id number], Progress Notes * ORQUIDEA JARVISOB: [birth year] (74 yo F)Acc No.[id number]:10/01/2024 Patient: ALLEN ESPINOSADORA Provider: Marquise VASQUEZ :1950 A ge:74 Y S ex:Female Date:10/01/2024 Address:[address] [place] [address] Subjective: * Chief Complaints: * 1 . [...] seen by Dr. Candelaria was 03/2024., Initials [facility]. * ROS: G eneral / [...] injector Subcutaneous , Taking TRUEplus 5-Bevel Pen [place] 31G X 8 MM Miscellaneous , Taking [...] - L85.3 ?3. U nspecified atherosclerosis of [place] arteries of extremities, bilateral legs - I70.203? [...] feet daily. 3. U nspecified atherosclerosis of [place] arteries of extremities, bilateral legs Notes: Patient [...] Months * Billing Information: * Visit Code: 31079 Office Visit, Est Pt., Level 3. * Procedure Codes: * Electronic signature of ARY VASQUEZ DPM on 01/05/2025 at 11:23 AM CDT Sign off status: Pending * Provider: Marquise VASQUEZ Date: 1 12/02/2023 Generated for Rianna rich/Gilberto/Ana Maria on: 0 01/05/2025 11:23 AM CDT History and Physical Notes * [...]
--- OUTSIDE RECORDS SUMMARY | 2025-01-05 11:23 | XMS_ITS | Encounter Summary ---
Author Organization [facility] Address [facility] [place] [address] Care Team Providers Care Automation Controls Engineer Name Role Phone Unavailable Primary Care Provider Unavailabl e Encounter Details Date Type Department Care Team (Late st Contact Info) Description 03/21/2019 Abstract [facility] CONVERSION [address] [place] [address] , Generic Conversion, Social History Tobacco Use Types Packs/Day Years Used Date Smoking Tobacco: Never Assessed Comments Unknown Sex and Gender Information Value Date Recorded Sex Assigned at Not on file Legal Sex Female 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
== END 2025-01-05 09:52 | disposition home or self-care (01) ==
PROVIDERS: PCP Family Medicine
DX: D32.0 Benign neoplasm of cerebral meninges (principal); R90.82 White matter disease, unspecified
CPT/HCPCS: 70553; A9579

== ENCOUNTER 2025-03-16 11:22 | Outpatient (CLI) | payer MEDICARE, SELFPAY ==
--- NOTE | ~2025-03-16 | XR_ITS ---
Right Knee Technique: AP, lateral, and sunrise views were obtained. Clinical History: Pain Findings: No fracture or dislocation is seen. Osseous alignment is anatomic. There is mild degenerati ve change of the lateral and patellofemoral compartments. Soft tissues are unremarkable. No joint eff usion is seen. Impression: Degenerative change, as above. Reviewed, dictated and finalized at location . Impression: Degenerative change, as above.
--- OUTSIDE RECORDS SUMMARY | 2025-03-16 11:32 | XMS_ITS | Referral Summary ---
Author Organization [facility] Address [address] [place] [address] Care Team Providers Care Product Marketing Consultant Name Role Phone James Candelaria DO Primary Care Provider Encounters Date Type Department Care Team Description 03/01/2025 11:15 AM CDT Office Visit [facility] Medical Group Cardiology at [address] [place] [address] Hussain Rollins MD Coronary artery disease of [place] artery of [place] heart with stable angina pectoris (Primary Dx); Hyperlipidemia associated with type 2 diabetes mellitus (HCC); Hypertension associated with diabetes (HCC); Severe obesity (HCC); Body mass index 40.0-44.9, adult (CMS/HCC) (HCC); Coronary artery disease involving [place] coronary artery of [place] heart without angina pectoris 12/21/2024 Telephone [facility] Medical Group Cardiology [address] [facility] [address] [place] [address] Hussain Rollins MD 12/16/2024 Telephone [facility] Cardiology [address] [place] [address] Hussain Rollins MD from Last 3 Months Allergies Active Allergy Reactions Criticality Noted Date Comments Adhesive Rash Medium Apricot Anaphylaxis,Rash High 04/23/2022 Other Rash Medium 04/23/2022 Clothing dye [place] Anaphylaxis,Rash High 04/23/2022 Prochlorperazine Anaphylaxis High Medications cholecalciferol (VITAMIN D3) 400 unit capsule take 1 by Oral route once 0 0 02/17/20 16 Active TRUEplus Pen Needle 31 gauge x 02/26 needle 09/23/20 21 Active calcitRIOL (ROCALTROL) 0.25 [...] enteric coated tabletIndication s:Coronary artery disease of [place] artery of [place] heart with stable angina pectoris Take 1 tablet (81 mg total) by mouth daily 11/21/[address] (PROTONIX) 40 mg EC tablet TAKE ONE TABLET BY MOUTH TWICE A DAY 60 tablet 06/16/20 24 Active clopidogreL (PLAVIX) 75 mg tablet Take 1 tablet (75 mg total) by mouth daily 30 tablet 11/02/19 25 026 Active Vascepa 1 gram capsule Take 1 capsule (1 g total) by mouth 2 (two) times a day 60 capsule 11/16/19 25 026 Active Additional Information Patient not taking.Reported on 03/01/2025 cloNIDine (CATAPRES) 0.1 mg tablet TAKE ONE TABLET BY MOUTH TWICE A DAY 180 tablet 11/30/19 25 Active atorvastatin (LIPITOR) 80 mg tabletIndication s:Hyperlipidemia associated with type 2 diabetes mellitus (HCC),Coronary artery disease involving [place] coronary artery of [place] heart without angina pectoris TAKE ONE TABLET BY MOUTH DAILY 90 tablet 3 11/30/19 25 Active metoprolol tartrate (LOPRESSOR) 25 mg immediate release tabletIndication s:Coronary artery disease of [place] artery of [place] heart with stable angina pectoris Take 1 tablet (25 mg total) by mouth 2 (two) times a day 60 tablet 03/01/20 25 026 Active nitroglycerin (Nitrostat) 0.4 mg SL tabletIndication s:Coronary artery disease involving [place] coronary artery of [place] heart without angina pectoris Place 1 tablet (0.4 mg total) under the tongue every 5 (five) minutes as needed for chest pain 25 tablet 3 03/01/20 25 026 Active nitroglycerin (Nitrostat) 0.4 mg SL tabletIndication s:Coronary artery disease involving [place] coronary artery of [place] heart without angina pectoris Place 1 tablet (0.4 mg total) under the tongue every 5 (five) minutes as needed for chest pain 25 tablet 3 05/04/20 24 025 Discontin ued(Reord er) metoprolol tartrate (LOPRESSOR) 25 mg immediate release tabletIndication s:Coronary artery disease involving [place] coronary artery of [place] heart without angina pectoris TAKE HALF A TABLET BY MOUTH TWICE A DAY 90 tablet 1 09/14/20 24 025 Discontin ued(Dupli quan order) Active Problems Problem Noted Date Diagnosed Date Severe obesity 03/01/2025 Syncope and collapse 11/21/2023 Anemia 05/21/2022 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, unspecified vessel or lesion type, unspecified whether [place] or transplanted heart 04/27/2022 Atypical chest pain 03/20/2022 Morbid (severe) obesity due to excess calories 0 03/20/2022 Body mass index 40.0-44.9, adult ([facility]) 03/20 Morbid obesity 09/12/2021 NIMA (obstructive sleep apnea) 09/12/2021 Systolic ejection murmur 06/19/2019 Coronary artery disease of n ative artery of [place] heart with stable angina pectoris 03/20/2017 Hyperlipidemia [...] on file Legal Sex Female 3:26 AM HOSPITAL MEDICAL BILLER Gender Identity Female 05/22/2019 11:23 AM CDT Sexual Orientation Straight 10/24/2021 7: 58 AM HOSPITAL MEDICAL BILLER Last Filed Vital Signs Vital Sign Reading Time Taken Comments Blood Pressure 136/86 03/01/2025 10:53 AM CDT Pulse 100 03/01/2025 10:53 AM CDT Temperature 36.6 C (97.9 F) 11/02/2024 6:30 PM HOSPITAL MEDICAL BILLER Respiratory Rate 24 11/02/2024 6:30 PM HOSPITAL MEDICAL BILLER Oxygen Saturation 94% 03/01/2025 10:53 AM CDT Inhaled Oxygen Concentration - - Weight 117 kg (258 lb) 03/01/2025 11:24 AM CDT Height 167.6 cm (5' 6) 03/01/2025 10:53 AM CDT Body Mass Index 41.64 03/01/2025 10:53 AM CDT Plan of Treatment Not on file Medical Devices Implanted Type Area Installer Inspector Final Device Identifier Shelf Expiration Date Model / Serial / Lot Medtronic Inc Resolute [place] 4mm 2.1-2.7fr 18mm 140cm Rapid Exchange Radiopaque [id number] - [id number] Implanted:Qty: 1 on 04/27/2022 by Logan Ceron MD at [facility] [employer] Inc 01/06/2025 [id number] / / [id number] Med[employer]onic Inc Resolute [place] 4mm 2.1-2.7fr 18mm 140cm Rapid Exchange Radiopaque [id number] - [id number] Implanted:Qty: 1 on 04/27/2022 by Logan Ceron MD at [facility] [employer] 08/22/2024 [id number] / / [id number] SurfAir Angio-Seal Vip 6fr Closere Device [id number] - [id number] Implanted:Qty: 1 on 04/27/2022 by Logan Ceron MD at [facility] [employer] 02/10/2023 [id number] / / [id number] Procedures Procedure Name Priority Date/Time Associated Diagnosis Comments POCT LIPID PANEL Routine 11/21/2023 2:00 PM HOSPITAL MEDICAL BILLER Coronary artery disease of [place] artery of [place] heart with stable angina pectoris Hyperlipidemia associated with type 2 diabetes mellitus (HCC) EGFR Routine 02/14/2017 1:23 AM CDT HEMOGLOBIN A1C STAT 01/29/2017 12:02 PM CDT from Last 3 Months or Most Recently Relevant to Health Maintenance Results * POCT lipid panel (11/21/2023 2:00 PM HOSPITAL MEDICAL BILLER) Pathologist [facility] Cholesterol, POC 104 mg/dL HDL, POC 31 mg/dL Triglycerides, POC 165 mg/dL LDL Cholesterol POC 41 mg/dL Chol/HDL Ratio, POC 3.4 Non-HDL Cholesterol, POC 74 mg/dL Cholesterol Total, POC 104 mg/dL Capillary blood 11/21/2023 2 :00 PM HOSPITAL MEDICAL BILLER us Hussain Rollins MD POINT OF CARE TEST ORDERA BLES Edited Result - Final * eGFR (02/14/2017 1:23 AM CDT) [facility] eGFR 14 mL/min/1.7 3 m2 [facility] Comment: Interpretive Data Reference Interval Normal >/= 90 mL/min/1.73m2 Mildly decreased* 60 - 89 mL/min/1.73m2 Mildly to moderately decreased 45 - 59 mL/min/1.73m2 Moderately to severely decreased 30 - 44 mL/min/1.73m2 Severely decreased 15 - 29 mL/min/1.73m2 Kidney Failure < 15 mL/min/1.73m2 *Relative to young adult level If -Lebanese multiply value by 1.16. Estimated glomerular filtration [...] ORDERABLES Final Re sult Performing Organization Address City/[facility]/ZIP Co de Phone Number [facility] [address] Department [employer] [place], [place] [id number] * (ABNORMAL) Hemoglobin A1c (01/29/2017 12:02 PM CDT) Hgb A1C 11.2(H) 4.0 - 6.0 % [facility] Blood specimen (specimen) 01/29/2017 12:02 PM CDT 01/29/2017 1:45 PM CDT us Will Mcmahon MD LAB BLOOD ORDERABLES Final Re sult [facility] [address] [place] [address] from Last 3 Months or Most Recently Relevant to Health Maintenance Insurance [facility] MEDIC[facility] Address: [place] [id number] [address] HMO REF [facility] MEDICARE Address: [place] [id number] [place] [id number] MEDICARE ADVANTAGE [facility] MEDICARE Address: [address] [address] [place] [id number] Care Teams Product Marketing Consultant Relationship Specialty Start Date End Date James Candelaria DO [address] [place] [address] PCP - General Family Medicine 01/28/24
--- OUTSIDE RECORDS SUMMARY | 2025-03-16 11:32 | XMS_ITS | Clinical Summary ---
Author Organization [facility] Address [address] [place] [address] Phone Care Team Providers Care Fitness Services Manager Name Role Phone Lorena Anthony MD Primary Care Provider [phone] Allergies Active Allergy Reactions Criticality Noted Date Comments Flavoring Agent (Non-Screening) Anaphylaxis High 01/2014 Prochlorperazine Anaphylaxis High 07/05/2019 Medications aspirin (ST HAILEE) 81 MG EC tablet 1 tab/cap qday 4 Active nitroglycerin (NITROSTAT) 0.4 MG SL tablet 0.4 mg 4 Active fenofibrate (TRICOR) 145 MG tablet Take 145 mg by mouth daily Active EPINEPHrine (EPIPEN 2-LAYLA) 0.3 MG/0.3ML injection syringe inject 0.3 milliliter by intramuscular route once as needed for anaphylaxis 4 Active Cholecalcifero l (VITAMIN D3) 400 units capsule take 1 by Oral route once 6 Active Blood Glucose Monitoring Suppl (NightOwlTOUCH VERIO) w/Device kit 0 Active ONETOUCH VERIO test strip 0 Active atorvastatin (LIPITOR) 80 MG tablet 0 Active famotidine (PEPCID) 20 MG tablet 0 Active metoprolol tartrate (LOPRESSOR) 25 MG tablet 0 Active pantoprazole (PROTONIX) 40 MG EC tablet 0 Active potassium citrate (UROCIT-K) 10 MEQ (1080 MG) CR tablet 0 Active VASCEPA 1 g capsule 0 Active NIFEdipine XL (PROCARDIA XL) 30 MG 24 hr tablet 0 Active furosemide (LASIX) 20 MG tablet 1 Active TRUEplus Pen Prospect 31G X 8 MM misc 2 Active calcitriol (ROCALTROL) 0.25 MCG capsule TAKE ONE CAPSULE BY MOUTH THREE TIMES A WEEK SATURDAY/SATURDAY/ SATURDAY 12 capsule 6 2 Active Brilinta 90 MG tablet 2 Active Active Problems Problem Noted Date Diagnosed Date Obstructive sleep apnea syndrome 09/12/2021 Proteinuria 07/05/2019 Calculus of kidney 05/29/2017 Coronary atherosclerosis 03/20/2017 Hypertensive chronic kidney disease with stage 1 through stage 4 chronic kidney disease, or unspecified chronic kidney disease 08/23/2015 Chronic kidney disease, stage 4 (severe) 015 Type 2 diabetes mellitus wit h other diabetic kidney complication 10/10/2014 Coronary arteriosclerosis in [place] artery 08/19 Overview (07/05/2019): Overview: CAD (coronary atherosclerotic disease) Gastroesophageal reflux disease 08/19/2014 Overview (07/05/2019): Overview: GERD (gastroesophageal reflux disease) Diabetes mellitus 08/19/2014 Overview (07/05/2019): Overview: Diabetes Obesity 12/09/2013 Overview (07/05/2019): Overview: Obesity Hypertension 08/21/2012 Overview (07/05/2019): Overview: Hypertension Hyperlipidemia 03/12/2012 Overview (07/05/2019): Converted unresolved ICD9, potential mismatch. Overview: Hyperlipidemia Immunizations Immunization Administration Dates Next Due Influenza Split High [...] oz pure alcohol) Alcoholic Drinks/day: 2 drinks/month Comments Unknown Sex and Gender Information Value Date Recorded Sex Assigned at Female 06/05/2021 2:54 PM MDT Legal Sex Female 9:20 AM MST Gender Identity Female 06/05/2021 2:54 PM MDT [...] Medium Risk (2 of 4 - PCV) 09/21/2007 09/21/2006, 03/03/1992 COVID-19 Vaccine (3 - 2023-2 5 season) 2024 05/03/2021, 04/12/2021, 02/04/2021 Influenza Vaccine (Season Ended) 2025 08/24/2015, 10/20/2014, 08/21/2012, Additional history exists Insurance [employer] MEDICARE Care Teams Fitness Services Manager Relationship Specialty Start Date End Date Lorena Anthony MD [address] [facility] [address] [facility] [address] [place] [address] PCP - General Internal Medicine 04/27/20
--- OUTSIDE RECORDS SUMMARY | 2025-03-16 11:32 | XMS_ITS | Clinical Summary ---
Author Organization [facility] Address [address] [place] [address] Care Team Providers Care Market Research Senior Project Manager Name Role Phone James Candelariah Primary Care Provider Allergies Active Allergy Reactions Criticality Noted Date Comments Adhesive Rash Medium Apricot Anaphylaxis,Rash High 04/23/2022 Other Rash Medium 04/23/2022 Clothing dye [place] Anaphylaxis,Rash High 04/23/2022 Prochlorperazine Anaphylaxis High Medications [...] enteric coated tabletIndication s:Coronary artery disease of [place] artery of [place] heart with stable angina pectoris Take 1 tablet (81 mg total) by mouth daily 11/21/[address] (PROTONIX) 40 mg EC tablet TAKE ONE TABLET BY MOUTH TWICE A DAY 60 tablet 11 06/16/20 24 Active clopidogreL (PLAVIX) 75 mg tablet Take 1 tablet (75 mg total) by mouth daily 30 tablet 11/02/19 026 Active Vascepa 1 gram capsule Take 1 capsule (1 g total) by mouth 2 (two) times a day 60 capsule 11/16/19 026 Active Additional Information Patient not taking.Reported on 03/01/2025 cloNIDine (CATAPRES) 0.1 mg tablet TAKE ONE TABLET BY MOUTH TWICE A DAY 180 tablet 3 11/30/19 25 Active atorvastatin (LIPITOR) 80 mg tabletIndication s:Hyperlipidemia associated with type 2 diabetes mellitus (HCC),Coronary artery disease involving [place] coronary artery of [place] heart without angina pectoris TAKE ONE TABLET BY MOUTH DAILY 90 tablet 3 11/30/19 25 Active metoprolol tartrate (LOPRESSOR) 25 mg immediate release tabletIndication s:Coronary artery disease of [place] artery of [place] heart with stable angina pectoris Take 1 tablet (25 mg total) by mouth 2 (two) times a day 60 tablet 11 03/01/20 026 Active nitroglycerin (Nitrostat) 0.4 mg SL tabletIndication s:Coronary artery disease involving [place] coronary artery of [place] heart without angina pectoris Place 1 tablet (0.4 mg total) under the tongue every 5 (five) minutes as needed for chest pain 25 tablet 3 03/01/20 25 026 Active nitroglycerin (Nitrostat) 0.4 mg SL tabletIndication s:Coronary artery disease involving [place] coronary artery of [place] heart without angina pectoris Place 1 tablet (0.4 mg total) under the tongue every 5 (five) minutes as needed for chest pain 25 tablet 3 05/04/20 24 025 Discontin ued(Reord er) metoprolol tartrate (LOPRESSOR) 25 mg immediate release tabletIndication s:Coronary artery disease involving [place] coronary artery of [place] heart without angina pectoris TAKE HALF A TABLET BY MOUTH TWICE A DAY 90 tablet 1 09/14/20 24 025 Discontin ued(Dupli quan order) Active Problems Problem Noted Date Diagnosed Date Severe obesity 03/01/2025 Syncope and collapse 11/21/2023 Anemia 05/21/2022 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, unspecified vessel or lesion type, unspecified whether [place] or transplanted heart 04/27/2022 Atypical chest pain 03/20/2022 Morbid (severe) obesity due to excess calories 0 03/20/2022 Body mass index 40.0-44.9, adult (CMS/HCC) 03/20 Morbid obesity 09/12/2021 NIMA (obstructive sleep apnea) 09/12/2021 Systolic ejection murmur 06/19/2019 Coronary artery disease of n ative artery of [place] heart with stable angina pectoris 03/20/2017 Hyperlipidemia [...] Description 03/01/2025 11:15 AM CDT Office Visit [facility] Medical Group Cardiology at [address] [place] [address] Hussain Rollins MD Coronary artery disease of [place] artery of [place] heart with stable angina pectoris (Primary Dx); Hyperlipidemia associated with type 2 diabetes mellitus (HCC); Hypertension associated with diabetes (HCC); Severe obesity (HCC); Body mass index 40.0-44.9, adult (CMS/HCC) (HCC); Coronary artery disease involving [place] coronary artery of [place] heart without angina pectoris 12/21/2024 Telephone [facility] Medical Group Cardiology [address] [place] [address] Hussain Rollins MD 12/16/2024 Telephone [facility] Medical Group Cardiology [address] [place] [phone] Hussain Rollins MD from Last 3 Months Immunizations Immunization Administration [...] 08/19/2014 - Sleep apnea Coronary artery disease CT (myocardial infarction) (HCC) Hypertension Type 2 diabetes mellitus (HCC) PONV (postoperative nausea and vomiting) Cataract Motion sickness CKD (chronic kidney disease) Kidney stone Malignant neoplasm of left breast (HCC) Deafness in right ear Awareness under anesthesia Heart murmur 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, unspecified vessel or lesion type, unspecified whether [place] or transplanted heart Chronic pain disorder Brain [...] on file Legal Sex Female 3:26 AM CAR ELECTRONICS INSTALLER Gender Identity Female 05/22/2019 11:23 AM CDT Sexual Orientation Straight 10/24/2021 7: 58 AM CAR ELECTRONICS INSTALLER Obstetrics History Last Filed Vital Signs Vital Sign Reading Time Taken Comments Blood Pressure 136/86 03/01/2025 10:53 AM CDT Pulse 100 03/01/2025 10:53 AM CDT Temperature 36.6 C (97.9 F) 11/02/2024 6:30 PM CAR ELECTRONICS INSTALLER Respiratory Rate 24 11/02/2024 6:30 PM CAR ELECTRONICS INSTALLER Oxygen Saturation 94% 03/01/2025 10:53 AM CDT Inhaled Oxygen Concentration - - Weight 117 kg (258 lb) 03/01/2025 11:24 AM CDT Height 167.6 cm (5' 6) 03/01/2025 10:53 AM CDT Body Mass Index 41.64 03/01/2025 10:53 AM CDT Plan of Treatment Health Maintenance Due [...] 2024 11/23/2021, 05/03/2021, 05/03/2021, Additional history exists Lipid Panel 11/21/2024 11/21/2023, 06/0 04/2022, 03/08/2021, Additional history exists Influenza Vaccine (Season Ended) 2025 07/26/2020, 07/14/2019, 08/18/2016, Additional history exists Fall Risk Assessment 11/02/2025 11/02/2024 Breast Cancer Screening-Mammogram Discontinued 12/09/2013, 12/09/2013, 12/06/2012 Medical Devices Implanted Type Area Special Projects Manager Device Identifier Shelf Expiration Date Model / Serial / Lot Medtronic Inc Resolute [place] 4mm 2.1-2.7fr 18mm 140cm Rapid Exchange Radiopaque [id number] - [id number] Implanted:Qty: 1 on 04/27/2022 by Logan Ceron MD at [facility] [employer] 01/06/2025 [id number] / / [id number] Med[employer] Resolute [place] 4mm 2.1-2.7fr 18mm 140cm Rapid Exchange Radiopaque [id number] - [id number] Implanted:Qty: 1 on 04/27/2022 by Logan Ceron MD at [facility] [employer] 08/22/2024 [id number] / / [id number] [employer] Angio-Seal Vip 6fr Closere Device [id number] - [id number] Implanted:Qty: 1 on 04/27/2022 by Logan Ceron MD at [facility] [employer] 02/10/2023 [id number] / / [id number] Procedures Procedure Name Priority Date/Time Associated Diagnosis Comments POCT LIPID PANEL Routine 11/21/2023 2:00 PM CAR ELECTRONICS INSTALLER Coronary artery disease of [place] artery of [place] heart with stable angina pectoris Hyperlipidemia associated with type 2 diabetes mellitus (HCC) EGFR Routine 02/14/2017 1:23 AM CDT HEMOGLOBIN A1C STAT 01/29/2017 12:02 PM CDT from Last 3 Months or Most Recently Relevant to Health Maintenance Results * POCT lipid panel (11/21/2023 2:00 PM CAR ELECTRONICS INSTALLER) Cholesterol, POC 104 mg/dL HDL, POC 31 mg/dL Triglycerides, POC 165 mg/dL LDL Cholesterol POC 41 mg/dL Chol/HDL Ratio, POC 3.4 Non-HDL Cholesterol, POC 74 mg/dL Cholesterol Total, POC 104 mg/dL Capillary blood 11/21/2023 2 :00 PM CAR ELECTRONICS INSTALLER us Hussain Rollins MD POINT OF CARE TEST ORDERA DOMONIQUE Edited Result - Final * eGFR (02/14/2017 1:23 AM CDT) eGFR 14 mL/min/1.7 3 m2 [facility] Comment: Interpretive Data Reference Interval Normal >/= 90 mL/min/1.73m2 Mildly decreased* 60 - 89 mL/min/1.73m2 Mildly to moderately decreased 45 - 59 mL/min/1.73m2 Moderately to severely decreased 30 - 44 mL/min/1.73m2 Severely decreased 15 - 29 mL/min/1.73m2 Kidney Failure < 15 mL/min/1.73m2 *Relative to young adult level If -Fijian multiply value by 1.16. Estimated glomerular filtration [...] ORDERABLES Final Re sult Performing Organization Address City/[facility]/ZIP Co de Phone Number [facility] [address] [place] [place] [address] * (ABNORMAL) Hemoglobin A1c (01/29/2017 12:02 PM CDT) Pathologist [facility] Hgb A1C 11.2(H) 4.0 - 6.0 % [facility] Blood specimen (specimen) 01/29/2017 12:02 PM CDT 01/29/2017 1:45 PM CDT us Will Mcmahon MD LAB BLOOD ORDERABLES Final Re sult [facility] [address] Department [address] [place] [address] from Last 3 Months or Most Recently Relevant to Health Maintenance Insurance MEDICARE ADVANTAGE R HMO REF MEDICARE ADVANTAGE Care Teams Market Research Senior Project Manager Relationship Specialty Start Date End Date James Candelaria DO [address] [place] [address] PCP - General Family Medicine 01/28/24
--- OUTSIDE RECORDS SUMMARY | 2025-03-16 11:32 | XMS_ITS | Clinical Summary ---
Author Organization [facility] Address [address] [place] [address] Care Team Providers Care Manager Field Service Name Role Phone Unavailable Primary Care Provider Unavailabl e Source Comments [facility],non-owned Affiliates and Associated Physician Practices is amultiple site organization consisting of ambulatory clinics and hospital sitesin [place], [place], [place] and [place]. This disclosure is being madepursuant to the Care Everywhere program and may not contain all information available regarding this patient. Last updated 18.[facility] Active Problems Problem Noted Date Diagnosed Date Brain mass 11/13/2023 Social History Tobacco Use Types Packs/Day Years Used Date Smoking Tobacco: Never Assessed Comments Unknown Sex and Gender Information Value Date Recorded Sex Assigned at Not on file Legal Sex Female 11:32 AM ACADEMIC AFFAIRS MANAGER Gender Identity Not on file Sexual Orientation [...] - 1-dose 75+ series) 2023 COVID-19 VACCINE ( season) 2024 05/03/2021, 04/12/2021 DEPRESSION SCREENING 10/14/2024 MEDICARE AWV CALENDAR YEAR 2024 INFLUENZA VACCINE (Season Ended) 2025 07/26/2020, 07/14/2019, 08/24/2015, Additional history exists HEPATITIS B VACCINE Aged Out No longe [...] on patient's age to complete this topic Insurance MEDICARE
--- OUTSIDE RECORDS SUMMARY | 2025-03-16 11:32 | XMS_ITS | Clinical Summary ---
Author Organization [facility] Address [address] [place] [address] Care Team Providers Care Development Administrator Name Role Phone Unavailable Primary Care Provider Unavailabl e Family History Medical History Relation Name Comments Breast Cancer Neg Hx Social History Tobacco Use Types Packs/Day Years Used Date Smoking Tobacco: Never Assessed Comments Unknown Sex and Gender Information Value Date Recorded Sex Assigned at Not on file Legal Sex Female 2:42 AM SAS ADMINISTRATOR Gender Identity Not on file Sexual Orientation [...] CAD W BONITA Routine 12/09/2013 8:40 AM SAS ADMINISTRATOR Other screening mammogram from Last 3 Months or Most Recently Relevant to Health Maintenance Results * GARY SCREENING BILATERAL DIGITAL W CAD W BONITA (12/09/2013 8:40 AM SAS ADMINISTRATOR) Anatomical Region Laterality Modality breast Bilateral Mammography, Oth er 12/09/2013 8:40 AM SAS ADMINISTRATOR Impressions 12/09/2013 11:35 AM SAS ADMINISTRATOR IMPRESSION: No evidence of malignancy. ASSESSMENT: Right [...] IMAGING WORKUP WILL BE SCHEDULED BY THE [facility]. Narrative 12/09/2013 11:35 AM SAS ADMINISTRATOR BILATERAL SCREENING MAMMOGRAM WITH TOMOSYNTHESIS TECHNIQUE: Bilateral [...] IMAGING WORKUP WILL BE SCHEDULED BY THE [facility]. us Zaid Arenas MD IMG MAMMO ORDERABLES Final R esult from Last 3 Months or Most Recently Relevant to Health Maintenance
--- OUTSIDE RECORDS SUMMARY | 2025-03-16 11:32 | XMS_ITS | Clinical Summary ---
Author Organization [facility] Address [address] [place] [address] Phone Care Team Providers Care Retirement Specialist Name Role Phone Lorena Anthony MD Primary Care Provider [phone]- [phone] Allergies Active Allergy Reactions Criticality Noted Date Comments Adhesive Unknown Medium 11/14/2023 Cefdinir Unknown 11/14/2023 Hydrocodone Unknown 11/14/2023 [place] Anaphylaxis High 11/16/2023 Prochlorperazine Unknown 11/14/2023 Medications [...] 11/14/2023 History of COVID-19 11/14/2023 Atherosclerosis of apache co ronary artery of apache heart without angina pectoris 11/14/2023 S/P CABG (coronary artery bypass graft) 02/01/20 24 Type 2 diabetes mellitus wit hout complication, with long-term current use of insulin 11/14/2023 Primary hypertension 11/14/2023 CKD (chronic kidney disease) stage 4, GFR 15-29 ml/min 11/14/2023 Meningioma 11/14/2023 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 Encounters Date Type Department Care Team Description 02/02/2025 External Device Data ST[facility] ABSTRACTION Provider, Abstract [...] on file Legal Sex Female 7:46 PM LINEN SUPPLY LOAD BUILDER Gender Identity Not on file Sexual Orientation Not on file Last Filed Vital Signs Vital Sign Reading Time Taken Comments Blood Pressure 153/60 11/16/2023 7:23 AM LINEN SUPPLY LOAD BUILDER Pulse 66 11/16/2023 7:23 AM LINEN SUPPLY LOAD BUILDER Temperature 36.7 C (98.1 F) 11/16/2023 8:07 AM LINEN SUPPLY LOAD BUILDER Respiratory Rate 21 11/16/2023 7:23 AM LINEN SUPPLY LOAD BUILDER Oxygen Saturation 96% 11/16/2023 7:23 AM LINEN SUPPLY LOAD BUILDER Inhaled Oxygen Concentration - - Weight 104.6 kg (230 lb 11.2 oz) 11/14/2023 2:26 AM LINEN SUPPLY LOAD BUILDER Height 167.6 cm (5' 6) 11/14/2023 2:26 AM LINEN SUPPLY LOAD BUILDER Body Mass Index 37.24 11/14/2023 2:26 AM LINEN SUPPLY LOAD BUILDER Plan of Treatment Health Maintenance Due Date [...] - 2023-2 5 season) 2024 05/03/2021, 04/12/2021 Insurance [facility] [address] DUAL COMPLETE PPO [facility] [id number] Advance Directives For more information, please contact: [phone] * Full Code (Latest Code Status on File) Date Activated Date Inactivated Comments 11/14/2023 5:11 AM 11/16/2023 3:51 PM Care Teams Retirement Specialist Relationship Specialty Start Date End Date Lorena Anthony MD [address] [facility] [address] [place] [address] PCP - General Family Practice 11/14/23
== END 2025-03-16 11:23 | disposition home or self-care (01) ==
PROVIDERS: PCP Family Medicine; Visit Provider Family Medicine
DX: S83.001A Unspecified subluxation of right patella, initial encounter (principal)
CPT/HCPCS: 73562

== ENCOUNTER 2025-03-21 15:01 | Emergency (ER) | payer MEDICARE, SELFPAY ==
--- NOTE | ~2025-03-21 | CT_ITS ---
EXAMINATION: CT abdomen pelvis wo con DATE: 03/21/2025 15:31 INDICATION: RLQ abdominal pain, nausea, diarrhea x1 day TECHNIQUE: Computed tomography (CT) of the abdomen and pelvis was performed without intravenous contr ast. Automated exposure control and iterative reconstruction technique were employed. The dose-length product was 1188.04 mGy-cm. COMPARISON: 12/03/2016; pelvic ultrasound 07/14/2020. FINDINGS: Lower thorax: Cardiomegaly. Heavy coronary artery calcification. Mild bilateral dependent atelectasis /scar. Liver: Enlarged. Biliary/Gallbladder: Cholelithiasis. No bile duct dilation. Pancreas: Punctate pancreatic head calcifications as can be seen with chronic pancreatitis. Spleen: Normal. Adrenals:No mass. Kidneys: No suspicious mass, obstructing stone, or hydronephrosis. 4.0 cm simple right renal cyst. Sm all simple left midpole cyst. Multiple nonobstructing right inferior pole calcifications measuring up to 14 mm. GI tract: Small uncomplicated duodenal diverticulum. No small or large bowel dilation. Normal appendi x. Diverticulosis without diverticulitis. Mesentery/Peritoneum: No ascites, mass, or free air. Retroperitoneum: No mass. Atherosclerotic calcifications of intra-abdominal arterial vessels. Pelvis: Partially distended urinary bladder. Normal uterus. Normal left ovary. 3.8 x 7.3 x 8.4 cm sim ple appearing, thin-walled cystic density structure associated with the right ovary in the upper pelv is. Soft Tissues: Small uncomplicated fat-containing umbilical and bilateral inguinal hernias. Bones: No acute osseous finding. IMPRESSION: Hepatomegaly. 8.8 cm simple appearing right upper pelvic cyst, likely associated with the right ovary. This lesion appears to have been present in the prior CT in 2017, where it measured 2.4 cm. This likely represent s an enlarging simple ovarian cyst, most likely a benign neoplasm. Recommend pelvic MRI for more defi nitive characterization (ovaries not visualized in prior pelvic ultrasound) and gynecology consultati on. Reviewed, dictated and finalized at location K. IMPRESSION: Hepatomegaly. 8.8 cm simple appearing right upper pelvic cyst, likely associated with the rig ht ovary. This lesion appears to have been present in the prior CT in 2017, whe re it measured 2.4 cm. This likely represents an enlarging simple ovarian cyst, most likely a benign neoplasm. Recommend pelvic MRI for more definitive charac terization (ovaries not visualized in prior pelvic ultrasound) and gynecology c onsultation.
[2025-03-21 15:04] VITALS: BP 193/93; PULSE 76; RESP 18; TEMP 36.8; O2SAT 97
--- OUTSIDE RECORDS SUMMARY | 2025-03-21 15:05 | XMS_ITS | Patient Health Record ---
Author Organization [facility] Address [address] [place], [place] [address] Care Team Providers Care Merchandise Examiner Name Role Phone BOUBACAR SPENCER Unavailable [phone] James Candelaria Unavailable Unavailable ANDREWCassidy NED Unavailable [phone] FARNAZ VASQUEZ Unavailable [phone] Allergies Allergen (clinical drug ingredient) Drug/Non Drug Allergy documented on EMR Reaction Allergy Type Onset Date Status Tape Unknown Allergy Active Reason For Referral No Information Medications Medication SIG (Take, Route, Frequency, Duration) Notes Start Date End Date Status Brilinta 90 MG Oral for 30 Days Active Nitroglycerin 0.4 MG Sublingual for 8 Days Active Atorvastatin Calcium 80 MG Oral for 90 Days Active Calcitriol 0.25 MCG Oral for 28 Days Active OneTouch Verio - In Vitro for 100 Days Active Pantoprazole Sodium 40 MG Oral for 30 Days Active Furosemide 20 MG Oral for 30 Days Active Icosapent Ethyl 1 GM Oral for 30 Days Active TRUEplus 5-Bevel Pen [place] 31G X 8 MM for 33 Days Active HumuLIN R U-500 KwikPen 500 UNIT/ML Subcutaneous for 24 Days Act ines Metoprolol Tartrate 25 MG Oral for 90 Days Active Potassium Citrate ER 10 MEQ (1080 MG) Oral for 30 Days Active Vital Signs Height-cm 167.64 cm 03/11/2025 Weight-kg 113.4 kg 03/11/2025 Height 66.00 in 03/11/2025 Weight 250 lbs 03/11/2025 BMI 40.35 kg/m2 03/11/2025 Encounters Encounter Location Date Provider Diagnosis [facility] [address] [place], [place] [id number] 10/01/2024 FARNAZ DAVYDOV Xerosis cutis L85.3 ; Tinea unguium B35.1 ; Unspecified atherosclerosis of [place] arteries of extremities, bilateral legs I70.203 ; Pain in right toe(s) M79.674 ; Pain in left toe(s) M79.675 ; Type 2 diabetes mellitus with diabetic peripheral angiopathy without gangrene E11.51 ; Acquired keratosis [keratoderma] palmaris et plantaris L85.1 ; Pain in right foot M79.671 and Pain in left foot M79.[address] [id number] 12/17/2024 NED ONEILEDUARDO Tinea unguium B35.1 ; Pain in right toe(s) M79.674 ; Pain in left toe(s) M79.675 ; Atherosclerosis of pilot [place] arteries of extremities with intermittent claudication, bilateral legs I70.213 and Type 2 diabetes mellitus with other circulatory complications E11.[address] [id number] 03/11/2025 BOUBACAR SPENCER Tinea unguium B35.1 ; Pain in right toe(s) M79.674 ; Pain in left toe(s) M79.675 ; Atherosclerosis of [place] arteries of extremities with intermittent claudication, bilateral legs I70.213 and Type 2 diabetes mellitus with other circulatory complications E11.[address] [id number] 04/23/2024 FARNAZGISELLA VIDALESYDOV Xerosis cutis L85.3 ; Tinea unguium B35.1 ; Unspecified atherosclerosis of pilot [place] arteries of extremities, bilateral legs I70.203 ; Pain in right toe(s) M79.674 ; Pain in left toe(s) M79.675 and Type 2 diabetes mellitus with diabetic peripheral angiopathy without gangrene E11.[address] [id number] 05/07/2024 FARNAZ DAVYDOV Xerosis cutis L85.3 ; Tinea unguium B35.1 ; Unspecified atherosclerosis of pilot [place] arteries of extremities, bilateral legs I70.203 ; Pain in right toe(s) M79.674 ; Pain in left toe(s) M79.675 and Type 2 diabetes mellitus with diabetic peripheral angiopathy without gangrene E11.51 [place] [address] [place], [place] [id number] 07/23/2024 FARNAZ VASQUEZ Xerosis cutis L85.3 ; Tinea unguium B35.1 ; Unspecified atherosclerosis of pilot point arteries of extremities, bilateral legs I70.203 ; [...] Treatment Notes Treatment Clinical Notes Section Notes 04/23/2024 Tinea unguium (ICD-10 - B35.1) Aseptic [...] subungual debris and necrotic tissue removed 03/11/2025 Tinea unguium (ICD-10 - B35.1) NAIL DEBRIDEMENT: Nails 1-5 Bilateral were debrided extensively with nail nippers and emery board, reducing length and girth to pink healthy tissue with any subungual debris and necrotic tissue removed 03/11/2025 Pain in right toe(s) (ICD-10 - M79.674) 05/07/2024 Unspecified atherosclerosis of pilot point arteries of extremities, bilateral legs (ICD-10 - I70.203) Patient educated on risks and aggravating factors of PVD, including conservative treatment options such as a diet and exercise regimen to aid in slowing progression of vascular disease 12/17/2024 Pain in right toe(s) (ICD-10 - M79.674) 10/01/2024 Unspecified atherosclerosis of pilot point arteries of extremities, bilateral legs (ICD-10 - I70.203) Patient educated on risks and aggravating factors of PVD, including conservative treatment options such as a diet and exercise regimen to aid in slowing progression of vascular disease 07/23/2024 Unspecified atherosclerosis of pilot [place] arteries of extremities, bilateral legs (ICD-10 - I70.203) Patient educated on risks and aggravating factors of PVD, including conservative treatment options such as a diet and exercise regimen to aid in slowing progression of vascular disease 04/23/2024 Unspecified atherosclerosis of pilot [place] arteries of extremities, bilateral legs (ICD-10 - [...] in left toe(s) (ICD-10 - M79.675) 03/11/2025 Pain in left toe(s) (ICD-10 - M79.675) 12/17/2024 Atherosclerosis of pilot [place] arteries of extremities with intermittent claudication, bilateral legs (ICD-10 - I70.213) 10/01/2024 Pain in left toe(s) (ICD-10 - M79.675) 03/11/2025 Atherosclerosis of pilot [place] arteries of extremities with intermittent claudication, bilateral legs (ICD-10 - I70.213) 04/23/2024 Pain in left toe(s) (ICD-10 - M79.675) 05/07/2024 Pain in left toe(s) (ICD-10 - M79.675) 07/23/2024 Pain in left toe(s) (ICD-10 - M79.675) 04/23/2024 Type 2 diabetes mellitus with diabetic [...] as well as the Amputation Prevention Guide. 03/11/2025 Type 2 diabetes mellitus with other circulatory complications (ICD-10 - E11.59) Diabetic Foot Care: The patient was educated on diabetes and the lower extremity. The patient was instructed to check his feet daily to report any problems or signs of infection immediately. Check and protect LE bilateral daily. Call if any changes or concerns. 10/01/2024 Acquired keratosis [keratoderma] palmaris et plantaris [...] foot (ICD-10 - M79.672) Plan Of Treatment No Information Insurance Providers Payer Name Payer Address Payer Phone Subscriber Number Group Number Insured Name Patient Relationship to Insured Coverage Start Date Coverage End Date AARP MedicareCo mplete ([facility]) [address] [place], [place] [id number] LIZZY JARVIS Self - patient is the insured
--- OUTSIDE RECORDS SUMMARY | 2025-03-21 15:05 | XMS_ITS | Clinical Summary ---
Author Organization [facility] Address [address] [place] [address] Phone Care Team Providers Care Barrel Washer Machine Name Role Phone Lorena Anthony MD Primary Care Provider +1- [phone] Allergies Active Allergy Reactions Criticality Noted Date [...] once 6 Active Blood Glucose Monitoring Suppl (Dividend SolarTOUCH VERIO) w/Device kit 0 Active ONETOUCH VERIO [...] 20 MG tablet 1 Active TRUEplus Pen [place] 31G X 8 MM misc 2 Active [...] diabetic kidney complication 10/10/2014 Coronary arteriosclerosis in [place] artery 08/19 Overview (07/05/2019): Overview: CAD (coronary [...] exists Insurance [employer] MEDICARE Care Teams Barrel Washer Machine Relationship Specialty Start Date End Date Lorena Anthony MD [address] [facility] [address] [facility] [address] [place] [address] PCP - General Internal Medicine 04/27/20
--- OUTSIDE RECORDS SUMMARY | 2025-03-21 15:05 | XMS_ITS ---
Author Organization [facility] Address [address] [place], [place] [address] Care Team Providers Care Program Scheduler Name Role Phone BOUBACAR SPENCER Unavailable [phone] James Candelaria Unavailable Unavailable NED HOLDER Unavailable [phone] Allergies Allergen (clinical drug ingredient) Drug/Non Drug [...] for 30 Days Active TRUEplus 5-Bevel Pen [place] 31G X 8 MM for 33 Days Active Icosapent Ethyl 1 GM Oral for 30 Days Active OneTouch Verio - In Vitro for 100 Days Active Encounters Encounter Location Date Provider Diagnosis [address] [id number] 12/17/2024 NED HOLDER Tinea unguium B35.1 ; Pain in right toe(s) M79.674 ; Pain in left toe(s) M79.675 ; Atherosclerosis of [place] arteries of extremities with intermittent claudication, bilateral [...] toe(s) (ICD-10 - M79.675) 12/17/2024 Atherosclerosis of [place]ayune arteries of extremities with intermittent claudication, bilateral [...] At-Risk Foot care, sooner if problems develop. Progress Notes * ORQUIDEA JARVISOB: [birth year] (74 yo F)Acc No.[id number]:12/17/2024 Patient: ALLEN ESPINOSADORA Provider: Richard Holder DPM :1950 A ge:74 Y S ex:Female Date:12/17/2024 Address:[facility] [place] [address] [facility] Subjective: * Chief Complaints: * 1 . [...] seen by Dr. Candelaria was 12/2023., Initials [facility]. * ROS: G eneral / Constitutional: Patient [...] injector Subcutaneous , Taking TRUEplus 5-Bevel Pen [place] 31G X 8 MM Miscellaneous , Taking [...] - M79.675 4 . A therosclerosis of picayune arteries of extremities with intermittent claudication, bilateral [...] develop.) * Billing Information: * Visit Code: 43633 Office Visit, Est Pt., Level 3. * Procedure Codes: * Electronic signature of NED HOLDER DPM on 03/21/2025 at 03:05 PM CDT Sign off status: Pending * Provider: Richard Holder DPM Date: 0 12/17/2024 Generated for Rianna michaelGilberto/Fabriziosmitting on: 0 03/21/2025 03:05 PM CDT History and Physical Notes * [...]
--- OUTSIDE RECORDS SUMMARY | 2025-03-21 15:05 | XMS_ITS | Referral Summary ---
Author Organization [facility] Address [address] [place] [address] Care Team Providers Care Commodities Requirements Analyst Name Role Phone James Candelaria Primary Care Provider Encounters Date Type Department Care Team Description 03/01/2025 11:15 AM CDT Office Visit [facility] Cardiology at [address] [place] [address] Hussain Rollins MD Coronary artery disease of [place] artery of [place] heart with stable angina pectoris (Primary Dx); Hyperlipidemia associated with type 2 diabetes mellitus (HCC); Hypertension associated with diabetes (HCC); Severe obesity (HCC); Body mass index 40.0-44.9, adult (CMS/HCC) (HCC); Coronary artery disease involving [place] coronary artery of [place] heart without angina pectoris 12/21/2024 Telephone [facility] Cardiology [address] [facility] [address] [place] [address] Hussain Rollins MD from Last 3 Months Allergies Active Allergy Reactions Criticality Noted Date Comments Adhesive Rash Medium Apricot Anaphylaxis,Rash High 04/23/2022 Other Rash Medium 04/23/2022 Clothing dye [place] Anaphylaxis,Rash High 04/23/2022 Prochlorperazine Anaphylaxis High Medications cholecalciferol (VITAMIN D3) 400 unit capsule take 1 by Oral route once 0 0 02/17/20 16 Active TRUEplus Pen Needle 31 gauge x 16 needle 09/23/20 21 Active calcitRIOL (ROCALTROL) 0.25 [...] enteric coated tabletIndication s:Coronary artery disease of [place] artery of [place] heart with stable angina pectoris Take 1 [...] 2 diabetes mellitus (HCC),Coronary artery disease involving [place] coronary artery of [place] heart without angina pectoris TAKE ONE TABLET BY MOUTH DAILY 90 tablet 3 11/30/19 25 Active metoprolol tartrate (LOPRESSOR) 25 mg immediate release tabletIndication s:Coronary artery disease of [place] artery of [place] heart with stable angina pectoris Take 1 tablet (25 mg total) by mouth 2 (two) times a day 60 tablet 03/01/20 25 026 Active nitroglycerin (Nitrostat) 0.4 mg SL tabletIndication s:Coronary artery disease involving [place] coronary artery of [place] heart without angina pectoris Place 1 tablet (0.4 mg total) under the tongue every 5 (five) minutes as needed for chest pain 25 tablet 3 03/01/20 25 026 Active nitroglycerin (Nitrostat) 0.4 mg SL tabletIndication s:Coronary artery disease involving [place] coronary artery of [place] heart without angina pectoris Place 1 tablet (0.4 mg total) under the tongue every 5 (five) minutes as needed for chest pain 25 tablet 3 05/04/20 24 025 Discontin ued(Reord er) metoprolol tartrate (LOPRESSOR) 25 mg immediate release tabletIndication s:Coronary artery disease involving [place] coronary artery of [place] heart without angina pectoris TAKE HALF A TABLET BY MOUTH TWICE A DAY 90 tablet 1 09/14/20 24 025 Discontin ued(Dupli quan order) Active Problems Problem Noted Date Diagnosed Date Severe obesity 03/01/2025 Syncope and collapse 11/21/2023 Anemia 05/21/2022 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, unspecified vessel or lesion type, unspecified whether [place] or transplanted heart 04/27/2022 Atypical chest pain 03/20/2022 Morbid (severe) obesity due to excess calories 0 03/20/2022 Body mass index 40.0-44.9, adult ([facility]) 03/20 Morbid obesity 09/12/2021 NIMA (obstructive sleep apnea) 09/12/2021 Systolic ejection murmur 06/19/2019 Coronary artery disease of n ative artery of [place] heart with stable angina pectoris 03/20/2017 Hyperlipidemia [...] on file Legal Sex Female 3:26 AM QUARTER BACKER Gender Identity Female 05/22/2019 11:23 AM CDT Sexual Orientation Straight 10/24/2021 7: 58 AM QUARTER BACKER Last Filed Vital Signs Vital Sign Reading Time Taken Comments Blood Pressure 136/86 03/01/2025 10:53 AM CDT Pulse 100 03/01/2025 10:53 AM CDT Temperature 36.6 C (97.9 F) 11/02/2024 6:30 PM QUARTER BACKER Respiratory Rate 24 11/02/2024 6:30 PM QUARTER BACKER Oxygen Saturation 94% 03/01/2025 10:53 AM CDT Inhaled Oxygen Concentration - - Weight 117 kg (258 lb) 03/01/2025 11:24 AM CDT Height 167.6 cm (5' 6) 03/01/2025 10:53 AM CDT Body Mass Index 41.64 03/01/2025 10:53 AM CDT Plan of Treatment Not on file Medical Devices Implanted Type Area Warehouse Guard Device Identifier Shelf Expiration Date Model / Serial / Lot [employer] Resolute [place] 4mm 2.1-2.7fr 18mm 140cm Rapid Exchange Radiopaque [id number] - [id number] Implanted:Qty: 1 on 04/27/2022 by Logan Ceron MD at [facility] [employer] 01/06/2025 [id number] / / [id number] Med[employer] Resolute [place] 4mm 2.1-2.7fr 18mm 140cm Rapid Exchange Radiopaque [id number] - [id number] Implanted:Qty: 1 on 04/27/2022 by Logan Ceron MD at [facility] [employer] 08/22/2024 [id number] / / [id number] Play With Pictures / HangPic Angio-Seal Vip 6fr Closere Device [id number] - [id number] Implanted:Qty: 1 on 04/27/2022 by Logan Ceron MD at [facility] [employer] / [employer] 02/10/2023 [id number] / / [id number] Procedures Procedure Name Priority Date/Time Associated Diagnosis Comments POCT LIPID PANEL Routine 11/21/2023 2:00 PM QUARTER BACKER Coronary artery disease of [place] artery of [place] heart with stable angina pectoris Hyperlipidemia associated with type 2 diabetes mellitus (HCC) EGFR Routine 02/14/2017 1:23 AM CDT HEMOGLOBIN A1C STAT 01/29/2017 12:02 PM CDT from Last 3 Months or Most Recently Relevant to Health Maintenance Results * POCT lipid panel (11/21/2023 2:00 PM QUARTER BACKER) Pathologist [facility] Cholesterol, POC 104 mg/dL HDL, POC 31 mg/dL Triglycerides, POC 165 mg/dL LDL Cholesterol POC 41 mg/dL Chol/HDL Ratio, POC 3.4 Non-HDL Cholesterol, POC 74 mg/dL Cholesterol Total, POC 104 mg/dL Capillary blood 11/21/2023 2 :00 PM QUARTER BACKER us Hussain Rollins MD POINT OF CARE TEST ORDERA BLES Edited Result - Final * eGFR (02/14/2017 1:23 AM CDT) Pathologist [facility] eGFR 14 mL/min/1.7 3 m2 [facility] Comment: Interpretive Data Reference Interval Normal >/= 90 mL/min/1.73m2 Mildly decreased* 60 - 89 mL/min/1.73m2 Mildly to moderately decreased 45 - 59 mL/min/1.73m2 Moderately to severely decreased 30 - 44 mL/min/1.73m2 Severely decreased 15 - 29 mL/min/1.73m2 Kidney Failure < 15 mL/min/1.73m2 *Relative to young adult level If -[place] multiply value by 1.16. Estimated glomerular filtration [...] ORDERABLES Final Re sult Performing Organization Address City/[facility]/ZIP Co de Phone Number [facility] [address] Department [employer] [place], [place] [phone] * (ABNORMAL) Hemoglobin A1c (01/29/2017 12:02 PM CDT) Hgb A1C 11.2(H) 4.0 - 6.0 % [facility] Blood specimen (specimen) 01/29/2017 12:02 PM CDT 01/29/2017 1:45 PM CDT Will Mcmahon MD LAB BLOOD ORDERABLES Final Re sult [facility] [address] Department of [employer] [place], [place] [phone] from Last 3 Months or Most Recently Relevant to Health Maintenance Insurance [facility] MEDICARE ADVANTAGE [facility] MEDICARE Address: [address] [phone] [facility] MDCR HMO REF [facility] MEDICARE Address: [address] [phone] [facility] MEDICARE ADVANTAGE [facility] MEDICARE Address: [place] [id number] [place] [phone] Care Teams Commodities Requirements Analyst Relationship Specialty Start Date End Date James Candelaria DO [facility] [place] [address] PCP - General Family Medicine 01/28/24
--- OUTSIDE RECORDS SUMMARY | 2025-03-21 15:05 | XMS_ITS | Clinical Summary ---
Author Organization [facility] Address [address] [place] [address] Care Team Providers Care Spinning Mule Operator Name Role Phone Unavailable Primary Care Provider Unavailabl e Source Comments [facility] [employer],non-owned Affiliates and Associated Physician Practices is amultiple site organization consisting of ambulatory clinics and hospital sitesin [place], [place], [place] and [place]. This disclosure is being madepursuant to the Care Everywhere program and may not contain all information available regarding this patient. Last updated 18.[facility] [employer] Active Problems Problem Noted Date Diagnosed Date Brain mass 11/13/2023 Social History Tobacco Use Types Packs/Day Years Used Date Smoking Tobacco: Never Assessed Comments Unknown Sex and Gender Information Value Date Recorded Sex Assigned at Not on file Legal Sex Female 11:32 AM QA SOFTWARE TESTER Gender Identity Not on file Sexual Orientation [...] 1-dose 75+ series) 2023 COVID-19 VACCINE ( - season) 2024 05/03/2021, 04/12/2021 DEPRESSION SCREENING 10/14/2024 [...]
--- OUTSIDE RECORDS SUMMARY | 2025-03-21 15:05 | XMS_ITS | Clinical Summary ---
Author Organization [facility] Address [address] [place] [address] Care Team Providers Care Cellars Supervisor Name Role Phone James Candelariah Primary Care Provider Allergies Active Allergy Reactions Criticality Noted Date Comments Adhesive Rash Medium Apricot Anaphylaxis,Rash High 04/23/2022 Other Rash Medium 04/23/2022 Clothing dye [place] Anaphylaxis,Rash High 04/23/2022 Prochlorperazine Anaphylaxis High Medications [...] enteric coated tabletIndication s:Coronary artery disease of [place] artery of [place] heart with stable angina pectoris Take 1 [...] 2 diabetes mellitus (HCC),Coronary artery disease involving [place] coronary artery of [place] heart without angina pectoris TAKE ONE TABLET BY MOUTH DAILY 90 tablet 3 11/30/19 25 Active metoprolol tartrate (LOPRESSOR) 25 mg immediate release tabletIndication s:Coronary artery disease of [place] artery of [place] heart with stable angina pectoris Take 1 tablet (25 mg total) by mouth 2 (two) times a day 60 tablet 11 03/01/20 026 Active nitroglycerin (Nitrostat) 0.4 mg SL tabletIndication s:Coronary artery disease involving [place] coronary artery of [place] heart without angina pectoris Place 1 tablet (0.4 mg total) under the tongue every 5 (five) minutes as needed for chest pain 25 tablet 3 03/01/20 25 026 Active nitroglycerin (Nitrostat) 0.4 mg SL tabletIndication s:Coronary artery disease involving [place] coronary artery of [place] heart without angina pectoris Place 1 tablet (0.4 mg total) under the tongue every 5 (five) minutes as needed for chest pain 25 tablet 3 05/04/20 24 025 Discontin ued(Reord er) metoprolol tartrate (LOPRESSOR) 25 mg immediate release tabletIndication s:Coronary artery disease involving [place] coronary artery of [place] heart without angina pectoris TAKE HALF A TABLET BY MOUTH TWICE A DAY 90 tablet 1 09/14/20 24 025 Discontin ued(Dupli quan order) Active Problems Problem Noted Date Diagnosed Date Severe obesity 03/01/2025 Syncope and collapse 11/21/2023 Anemia 05/21/2022 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, unspecified vessel or lesion type, unspecified whether [place] or transplanted heart 04/27/2022 Atypical chest pain 03/20/2022 Morbid (severe) obesity due to excess calories 0 03/20/2022 Body mass index 40.0-44.9, adult (CMS/HCC) 03/20 Morbid obesity 09/12/2021 NIMA (obstructive sleep apnea) 09/12/2021 Systolic ejection murmur 06/19/2019 Coronary artery disease of n ative artery of [place] heart with stable angina pectoris 03/20/2017 Hyperlipidemia [...] Description 03/01/2025 11:15 AM CDT Office Visit [facility] at [address] [place] [address] Hussain Rollins MD Coronary artery disease of [place] artery of [place] heart with stable angina pectoris (Primary Dx); Hyperlipidemia associated with type 2 diabetes mellitus (HCC); Hypertension associated with diabetes (HCC); Severe obesity (HCC); Body mass index 40.0-44.9, adult (CMS/HCC) (HCC); Coronary artery disease involving [place] coronary artery of [place] heart without angina pectoris 12/21/2024 Telephone [facility] [address] [place] [address] Hussain Rollins MD from Last [...] 08/19/2014 - Sleep apnea Coronary artery disease NM (myocardial infarction) (HCC) Hypertension Type 2 diabetes mellitus (HCC) PONV (postoperative nausea and vomiting) Cataract Motion sickness CKD (chronic kidney disease) Kidney stone Malignant neoplasm of left breast (HCC) Deafness in right ear Awareness under anesthesia Heart murmur 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.] 12/09/2013, 12/06/2012 Medical Devices Implanted Type Area Display Associate Device Identifier Shelf Expiration Date Model / Serial / Lot [employer] Resolute Efren 4mm 2.1-2.7fr 18mm 140cm Rapid Exchange Radiopaque [id number] - [id number] Implanted:Qty: 1 on 04/27/2022 by Logan Ceron MD at [facility] [employer] 01/06/2025 [id number] X / / [id number] [employer] Resolute Dickens 4mm 2.1-2.7fr 18mm 140cm Rapid Exchange Radiopaque [id number] - [id number] Implanted:Qty: 1 on 04/27/2022 by Logan Ceron MD at [facility] [employer] 08/22/2024 [id number] / / [id number] 001 [employer] Angio-Seal Vip 6fr Closere Device [id number] - [id number] Implanted:Qty: 1 on 04/27/2022 by Logan Ceron MD at [facility] [email or web address] 02/10/2023 [id number] / [id number] Procedures Procedure Name Priority Date/Time Associated Diagnosis Comments POCT LIPID PANEL Routine 11/21/2023 2:00 PM SCHOOL NURSE Coronary artery disease of [place] artery of [place] heart with stable angina pectoris Hyperlipidemia associated with type 2 diabetes mellitus (HCC) EGFR Routine 02/14/2017 1:23 AM CDT HEMOGLOBIN A1C STAT 01/29/2017 12:02 PM CDT from Last 3 Months or Most Recently Relevant to Health Maintenance Results * POCT lipid panel (11/21/2023 2:00 PM SCHOOL NURSE) Cholesterol, POC 104 mg/dL HDL, POC 31 mg/dL Triglycerides, POC 165 mg/dL LDL Cholesterol POC 41 mg/dL Chol/HDL Ratio, POC 3.4 Non-HDL Cholesterol, POC 74 mg/dL Cholesterol Total, POC 104 mg/dL Capillary blood 11/21/2023 2 :00 PM SCHOOL NURSE us Hussain Rollins MD POINT OF CARE TEST ORDERA BLES Edited Result - Final * eGFR (02/14/2017 1:23 AM CDT) eGFR 14 mL/min/1.7 3 m2 [facility] Comment: Interpretive Data Reference Interval Normal >/= 90 mL/min/1.73m2 Mildly decreased* 60 - 89 mL/min/1.73m2 Mildly to moderately decreased 45 - 59 mL/min/1.73m2 Moderately to severely decreased 30 - 44 mL/min/1.73m2 Severely decreased 15 - 29 mL/min/1.73m2 Kidney Failure < 15 mL/min/1.73m2 *Relative to young adult level If -Marshall[place] multiply value by 1.16. Estimated glomerular filtration [...] ORDERABLES Final Re sult Performing Organization Address City/[facility]/ZIP Co de Phone Number [facility] [address] Department [place], [place] [id number] * (ABNORMAL) Hemoglobin A1c (01/29/2017 12:02 PM CDT) Hgb A1C 11.2(H) 4.0 - 6.0 % [facility] Blood specimen (specimen) 01/29/2017 12:02 PM CDT 01/29/2017 1:45 PM CDT us Will Mcmahon MD LAB BLOOD ORDERABLES Final Re sult [facility] [address] Department [place] [address] from Last 3 Months or Most Recently Relevant to Health Maintenance Insurance MEDICARE ADVANTAGE [facility] MEDICARE Address: [address] [place], [place] [id number] [place] [id number] [facility] MDCR HMO REF [facility] MEDICARE Address: [place] [id number] [place] [id number] [place] [id number] [facility] MEDICARE ADVANTAGE [facility] MEDICARE Address: [address] [address] [place] [phone] Care Teams Cellars Supervisor Relationship Specialty Start Date End Date James Candelaria DO [address] [place] [address] PCP - General Family Medicine 01/28/24
--- OUTSIDE RECORDS SUMMARY | 2025-03-21 15:06 | XMS_ITS | Clinical Summary ---
Author Organization [facility] Address [address] [place] [address] Care Team Providers Care Digital Marketing Project Manager Name Role Phone Unavailable Primary Care Provider Unavailabl e Family History Medical History Relation Name Comments Breast Cancer Neg Hx Social History Tobacco Use Types Packs/Day Years Used Date Smoking Tobacco: Never Assessed Comments Unknown Sex and Gender Information Value Date Recorded Sex Assigned at Not on file Legal Sex Female 2:42 AM SALAD BAR CLERK Gender Identity Not on file Sexual Orientation Not on file Plan of Treatment Health Maintenance Due Date Last Done Comments Hepatitis C Virus (HCV) Screening 1950 TdaP Immunization 1950 Pneumococcal Immunization (5 0+ years) (1 of 1 - PCV) 1998 Zoster Immunization (1 of 2) 1998 Mammogram 12/09/2014 12/09/2013, 12/06/2012 Respiratory Syncytial Virus (RSV) Immunization (Adult) (1 - 1-dose 75+ series) 2023 SARS-COV-2 Immunization ( season) 2024 Influenza Immunization (Seas on Ended) 2025 Hepatitis B Immunization Aged Out No longer eligible based on patient's age to complete this topic Human Papillomavirus (HPV) Immunization Aged Out No longer eligible b ased [...] CAD W BONITA Routine 12/09/2013 8:40 AM SALAD BAR CLERK Other screening mammogram from Last 3 Months or Most Recently Relevant to Health Maintenance Results * GARY SCREENING BILATERAL DIGITAL W CAD W BONITA (12/09/2013 8:40 AM SALAD BAR CLERK) Anatomical Region Laterality Modality breast Bilateral Mammography, Oth er 12/09/2013 8:40 AM SALAD BAR CLERK Impressions 12/09/2013 11:35 AM SALAD BAR CLERK IMPRESSION: No evidence of malignancy. ASSESSMENT: Right [...] IMAGING WORKUP WILL BE SCHEDULED BY THE [facility]. Narrative 12/09/2013 11:35 AM SALAD BAR CLERK BILATERAL SCREENING MAMMOGRAM WITH TOMOSYNTHESIS TECHNIQUE: Bilateral [...] IMAGING WORKUP WILL BE SCHEDULED BY THE [facility]. us Zaid Arenas MD IMG MAMMO ORDERABLES Final R esult from Last 3 Months or Most Recently Relevant to Health Maintenance
--- OUTSIDE RECORDS SUMMARY | 2025-03-21 15:06 | XMS_ITS ---
Author Organization [facility] Address [address] [place], [place] [id number] Care Team Providers Care Dry Cleaning Checker Name Role Phone BOUBACAR SPENCER Unavailable [phone] James Candelaria Unavailable Unavailable FARNAZ VASQUEZ Unavailable [phone] Allergies Allergen (clinical drug ingredient) Drug/Non Drug [...] for 30 Days Active TRUEplus 5-Bevel Pen [place] 31G X 8 MM for 33 Days Active HumuLIN R U-500 KwikPen 500 UNIT/ML Subcutaneous for 24 Days Act ines Encounters Encounter Location Date Provider Diagnosis [facility] [address] [place], [place] [id number] 10/01/2024 FARNAZ VASQUEZ Xerosis cutis L85.3 ; Tinea unguium B35.1 ; Unspecified atherosclerosis of [place] arteries of extremities, bilateral legs I70.203 ; [...] and prescription treatments. 10/01/2024 Unspecified atherosclerosis of [place] arteries of extremities, bilateral legs (ICD-10 - [...] OTC and prescription treatments. Unspecified atherosclerosis of [place] arteries of extremities, bilateral legs Patient educated [...] Appt Details Follow Up: 3 Months, Reason: Progress Notes * ALLEN JARVISCYNOB: [birth year] (74 yo F)Acc No.[id number]:10/01/2024 Patient: ALLEN ESPINOSADORA Provider: Marquise VASQUEZ :1950 A ge:74 Y S ex:Female Date:10/01/2024 Address:[address] [place] [address] Subjective: * Chief Complaints: * 1 . [...] seen by Dr. Candelaria was 03/2024., Initials health system. * ROS: G eneral / Constitutional: Patient [...] injector Subcutaneous , Taking TRUEplus 5-Bevel Pen [place] 31G X 8 MM Miscellaneous , Taking [...] - L85.3 ?3. U nspecified atherosclerosis of [place] arteries of extremities, bilateral legs - I70.203? [...] feet daily. 3. U nspecified atherosclerosis of [place] arteries of extremities, bilateral legs Notes: Patient [...] Months * Billing Information: * Visit Code: 31979 Office Visit, Est Pt., Level 3. * Procedure Codes: * Electronic signature of ARY VASQUEZ DPM on 03/21/2025 at 03:05 PM CDT Sign off status: Pending * Provider: Marquise VASQUEZ Date: 12/02/2023 Generated for Rianna rich/Gilberto/Ana Maria on: 03/21/2025 03:05 PM CDT History and Physical [...]
--- OUTSIDE RECORDS SUMMARY | 2025-03-21 15:06 | XMS_ITS | Clinical Summary ---
Author Organization [facility] Address [address] [place] [address] Phone Care Team Providers Care Safemaker Name Role Phone Lorena Anthony MD Primary Care Provider [phone] Allergies Active Allergy Reactions Criticality Noted Date Comments Adhesive Unknown Medium 11/14/2023 Cefdinir Unknown 11/14/2023 Hydrocodone Unknown 11/14/2023 [place] Anaphylaxis High 11/16/2023 Prochlorperazine Unknown 11/14/2023 Medications [...] 11/14/2023 History of COVID-19 11/14/2023 Atherosclerosis of [place] co ronary artery of [place] heart without angina pectoris 11/14/2023 S/P CABG [...] on file Legal Sex Female 7:46 PM GAS ATTENDANT Gender Identity Not on file Sexual Orientation Not on file Last Filed Vital Signs Vital Sign Reading Time Taken Comments Blood Pressure 153/60 11/16/2023 7:23 AM GAS ATTENDANT Pulse 66 11/16/2023 7:23 AM GAS ATTENDANT Temperature 36.7 C (98.1 F) 11/16/2023 8:07 AM GAS ATTENDANT Respiratory Rate 21 11/16/2023 7:23 AM GAS ATTENDANT Oxygen Saturation 96% 11/16/2023 7:23 AM GAS ATTENDANT Inhaled Oxygen Concentration - - Weight 104.6 kg (230 lb 11.2 oz) 11/14/2023 2:26 AM GAS ATTENDANT Height 167.6 cm (5' 6) 11/14/2023 2:26 AM GAS ATTENDANT Body Mass Index 37.24 11/14/2023 2:26 AM GAS ATTENDANT Plan of Treatment Health Maintenance Due Date [...] 2023-2 5 season) 2024 05/03/2021, 04/12/2021 Insurance [facility] [address] DUAL COMPLETE PPO [facility] [id number] Advance Directives For more information, please contact: [phone] * Full Code (Latest Code Status on File) Date Activated Date Inactivated Comments 11/14/2023 5:11 AM 11/16/2023 3:51 PM Care Teams Safemaker Relationship Specialty Start Date End Date Lorena Anthony MD [address] [facility] [address] [place] [address] PCP - General Family Practice 11/14/23
--- OUTSIDE RECORDS SUMMARY | 2025-03-21 15:06 | XMS_ITS ---
Author Organization [facility] Address [address] [place], [place] [id number] Care Team Providers Care Laborer Cutting Tool Name Role Phone BOUBACAR SPENCER Unavailable [phone] James Candelaria Unavailable Unavailable Allergies Allergen (clinical drug ingredient) Drug/Non Drug Allergy documented on EMR Reaction Allergy Type Onset Date Status Tape Unknown Allergy Active REASON FOR VISIT *General care Medications Medication SIG (Take, Route, Frequency, Duration) Notes Start Date End Date Status Brilinta 90 MG Oral for 30 Days Active Nitroglycerin 0.4 MG Sublingual for 8 Days Active Calcitriol 0.25 MCG Oral for 28 Days Active Metoprolol Tartrate 25 MG Oral for 90 Days Active Potassium Citrate ER 10 MEQ (1080 MG) Oral for 30 Days Active OneTouch Verio - In Vitro for 100 Days Active Furosemide 20 MG Oral for 30 Days Active Icosapent Ethyl 1 GM Oral for 30 Days Active TRUEplus 5-Bevel Pen [place] 31G X 8 MM for 33 Days Active HumuLIN R U-500 KwikPen 500 UNIT/ML Subcutaneous for 24 Days Act ines Atorvastatin Calcium 80 MG Oral for 90 Days Active Pantoprazole Sodium 40 MG Oral for 30 Days Active Vital Signs Height 66.00 in 03/11/2025 Weight 250 lbs 03/11/2025 BMI 40.35 kg/m2 03/11/2025 Height-cm 167.64 cm 03/11/2025 Weight-kg 113.4 kg 03/11/2025 Encounters Encounter Location Date Provider Diagnosis [address] [id number] 03/11/2025 BOUBACAR SPENCER Tinea unguium B35.1 ; Pain in right toe(s) M79.674 ; Pain in left toe(s) M79.675 ; Atherosclerosis of [place] arteries of extremities with intermittent claudication, bilateral [...] toe(s) (ICD-10 - M79.675) 03/11/2025 Atherosclerosis of [place] arteries of extremities with intermittent claudication, bilateral [...] * ORQUIDEA JARVISOB: [birth year] (74 yo F)Acc No.[id number]:03/11/2025 Patient: Viv HOWARDLIZZY Provider: Rosetta SPENCER :1950 A ge:74 Y S ex:Female Date:03/11/2025 Address:[facility] [address] [facility] Subjective: * Chief Complaints: * 1 . *General care. * HPI: H PI: General care P wilfrido presents to the office for diabetic foot [...] U-500 KwikPen 500 UNIT/ML Solution Pen-injector Subcutaneous , Taking TRUEplus 5-Bevel Pen [place] 31G X 8 MM Miscellaneous , Taking [...] - M79.675 4 . A therosclerosis of [place] arteries of extremities with intermittent claudication, bilateral [...] record has been reviewed and updated. * Follow Up: 1 0 - 12 weeks (Reason: At-Risk Foot care, sooner if problems develop.) * Billing Information: * Visit Code: * Procedure Codes: * Electronic signature of ALLI SPENCER DPM on 03/21/2025 at 03:05 PM CDT Sign off status: Pending * Provider: Rosetta SPENCER Date: 0 03/11/2025 Generated for Rianna rich/Gilberto/Ana Maria on: 0 03/21/2025 03:05 PM CDT History [...]
--- NOTE | 2025-03-21 15:10 | ECG_ITS ---
Test Date: 2025-03-21 15:32:23 Measurements Intervals [place] Rate: 75 P: 31 SD: 202 QRS: -31 QRSD: 91 T: 56 QT: 398 QTc: 446 Interpretive Statements SINUS RHYTHM LEFT AXIS DEVIATION LEFT VENTRICULAR HYPERTROPHY WITH ST-T CHANGE CONSIDER INFERIOR INFARCT, AGE INDETERMINATE NONSPECIFIC T-WAVE ABNORMALITY- LATERAL LEADS ABNORMAL ECG No previous ECG available for comparison Electronically Signed On 03-21-2025 15:39:18 CDT by Titi Oviedo D.O.
--- NOTE | 2025-03-21 15:11 | ED.ABDPAIN ---
HPI - Abdominal Pain General Chief Complaint: Abdominal Pain Stated Complaint: right sided abdominal pain Time Seen by Provider: 03/21/25 15:07 Source: patient Mode of arrival: ambulatory Limitations: no limitations History of Present Illness HPI narrative: Patient is a 74-year-old female with right lower quadrant pain for the past day. This started last night and it is continued all the way through till now. It is a sharp pain. It does not radiate. She has some nausea and associated diarrhea. No vomiting. History of kidney stones. History of coronary artery disease. She had a heart catheterization done in October of this year and had balloon angioplasty. no prior abdominal surgeries. Appendix and gallbladder present. Female anatomy present. MD elicited complaint: abdominal pain ( Right lower quadrant) Pertinent past history: kidney stones and other ( Hypertension, hyperlipidemia, diabetes 2, GERD) Onset (ago): day(s) ( 1 /since last night) Pain Consistency: constant Location: RLQ Severity: moderate Pain scale (0-10): 5 Quality: sharp Radiation: none Migration to: no migration Exacerbating factors: nothing Relieving factors: nothing Context: confirms other ( patient has right lower quadrant pain since last night and here for evaluation. Associated nausea and diarrhea.) Associated symptoms: nausea and diarrhea Treatments prior to arrival: other ( None) Related Data Home Medications ?Medication ?Instructions ?Recorded ?Confirmed ?Last Taken ?Type pantoprazole 40 mg tablet,delayed 40 mg PO HS 01/07/20 12/15/24 04/09/22 History release atorvastatin 80 mg tablet 80 mg PO HS 08/24/20 12/15/24 04/09/22 History cholecalciferol (vitamin D3) 50 50 mcg PO HS 02/15/21 12/15/24 04/09/22 History mcg (2,000 unit) capsule aspirin 81 mg tablet,delayed 81 mg PO DAILY 12/13/23 12/15/24 Unknown History release (Adult Aspirin Regimen) clonidine HCl 0.1 mg tablet 0.1 mg PO DAILY 03/02/24 12/15/24 Unknown History metoprolol tartrate 25 mg tablet 25 mg PO BID 03/16/25 Unknown History clopidogrel 75 mg tablet 75 mg PO DAILY 03/21/25 Unknown History nitroglycerin 0.4 mg sublingual 0.4 mg sublingual Q5M 03/21/25 Unknown History tablet Allergies Allergy/AdvReac Type Severity Reaction Status Date / Time hydrocodone Allergy Severe rash Verified 03/21/25 15:22 adhesive tape Allergy Unknown rash Verified 03/21/25 15:22 cefdinir Allergy Unknown rash Verified 03/21/25 15:22 peach Allergy Unknown Anaphylactic Unverified 03/21/25 15:22 Shock,throat closes,throat closes,Anaphylactic prochlorperazine Allergy Unknown Verified 03/21/25 15:22 adhesive AdvReac Intermediate TAPE= RASH Verified 03/21/25 15:22 DYE USED FOR CLOTHING Allergy Unknown SWELLING, Uncoded 03/21/25 15:22 INFECTION FROM DYE Review of Systems Review of Systems: All systems reviewed & are unremarkable except as noted in HPI and below Constitutional: Constitutional: Reports no additional constitutional complaints Eyes: Eyes: Reports no additional eye complaints ENT: Reports system reviewed and no additional complaints, except as documented Cardiovascular: Cardiovascular: Reports no additional cardiovascular complaints Respiratory: Respiratory: Reports no additional respiratory complaints Gastrointestinal: Gastrointestinal: Reports no additional gastrointestinal complaints Genitourinary: Genitourinary: Reports no additional female genitourinary complaints Musculoskeletal: Musculoskeletal: Reports no additional musculoskeletal complaints Integumentary/Breasts: Skin/Breast: Reports system reviewed and no additional complaints, except as docu Neurologic: Reports system reviewed and no additional complaints, except as documented Psychiatric: Psychiatric: Reports no additional psychiatric complaints Endocrine: Endocrine: Reports no additional endocrine complaints Hematologic/Lymphatic: Hematologic/Lymphatic: Reports no additional hematologic/lymphatic complaints Allergic/Immunologic: Allergic/Immunologic: Reports no additional allergic/immunologic complaints [facility] Past Medical History Medical History Chronic obstructive pulmonary disease Per patient report she had PFTs done in [place] however if she saw the geomorphology teacher here who stated he did not see any signs and symptoms of COPD and that the patient refused to have a PFT or obstructive sleep studies performed. Insulin dependent type 2 diabetes mellitus Coronary artery disease Chronic kidney disease, stage 4 (severe) Cancer of left breast Status post lumpectomy and chemoradiation. Gastroesophageal reflux disease Morbid (severe) obesity due to excess calories Type 2 diabetes mellitus with diabetic chronic kidney disease Cholelithiasis Kidney stone Hypertension Arthritis Surgical History Surgical History History of wisdom tooth extraction History of heart artery stent History of bilateral cataract extraction History of lumpectomy of left breast History of extraction of renal calculus Family History Family History Mother Family history of diabetes mellitus in first degree relative Cancer CHF (congestive heart failure), NYHA class I Diabetes mellitus Family history of cardiovascular disease Family history of congestive heart failure Family history of hearing loss Family history of heart disease in male family member before age 55 Heart disease Family history of thyroid disease Thyroid disease Hypertension Father Cancer CHF (congestive heart failure), NYHA class I Family history of arthritis Family history of cardiovascular disease Family history of congestive heart failure Family history of hearing loss Family history of heart disease in male family member before age 55 Heart disease Family history of obesity Sibling CHF (congestive heart failure), NYHA class I Other Family history of malignant neoplasm Social History Social History Social History: 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ion maker: Epi Falk, son. Code status: Full code. Smoking packs per day: 1 Smoking cigarettes per day: 20.0 Years smoked: 10 Smoking pack-years: 10.00 Smoking status: Former smoker Tobacco type: cigarettes Second hand tobacco smoke exposure: No Alcohol intake: never Alcohol use details: once a month Substance use: never Substance use type: does not use Do You Feel Safe in your Home?: Yes Lack of Transportation: No Lack of Food: Never True Current Housing: I Have Housing Concerned About Future Housing: No Difficulty Paying Gas/Electric Bills: No Difficulty Paying for Meds: No Currently Unemployed: No Education: Associate Degree Difficulty w/ Childcare or Family Care: No Living arrangements: with family Additional living arrangements comments: Lives in [place]. 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 Gender identity (if verbalized by the patient): Female Spiritual care concerns: No Exam Const: General: healthy appearing and no acute distress Nutritional Appearance: well nourished Orientation/consciousness: patient oriented x3 Limitations: no limitations HENMT: Head: normal to inspection Ears: external ears normal Face/Nose/Sinus: Normal external nose present Eyes: Conjunctivae: conjunctivae normal Pupils: Equal, round and reactive pupils present EOM: EOMs intact bilaterally Neck: Neck: normal visual inspection Chest: Chest palpation & inspection: normal inspection of the chest Resp: Effort & Inspection: normal respiratory effort and not labored Auscultation: clear to auscultation bilaterally and no crackles Cardio: Rate: regular rate Rhythm: regular rhythm Heart sounds: no murmurs GI: Inspection: non-distended GI Palp: Yes Soft to palpation, Yes Tenderness to palpation present (GI) ( right lower quadrant), Yes Guarding due to palpation present (GI), No Rigid due to palpation, No Hernia present, No Palpable mass present and Yes Rebound tenderness present ( equivocal) Auscultation: normal bowel sounds : General: Yes bladder normal to palpation Back/Spine/Pelvis: Back: no CVA tenderness Skin: General skin exam: normal color Rashes: no rashes Wounds: no wounds Neuro: General: patient oriented x3 Cranial nerves: Yes Nystagmus not present Speech: normal speech Gait exam (Neuro): Normal gait present ( uses a cane) Extrem: General: normal to inspection Psych: Mental Status: mental status grossly normal Affect: normal affect Attitude: cooperative Course Vital Signs Vital signs: Vital Signs Temperature 36.8 C 03/21/25 15:04 Pulse Rate 76 03/21/25 15:04 Respiratory Rate 18 03/21/25 15:04 Blood Pressure 193/93 H 03/21/25 15:04 Pulse Oximetry 97 03/21/25 15:04 Oxygen Delivery Room Air 03/21/25 15:04 Temperature 36.6 C 03/21/25 16:40 Pulse Rate 84 03/21/25 16:40 Respiratory Rate 18 03/21/25 16:40 Blood Pressure 170/83 H 03/21/25 16:40 Pulse Oximetry 96 03/21/25 16:40 Oxygen Delivery Room Air 03/21/25 16:40 MDM - Abdominal Pain MDM Narrative Medical decision making narrative: patient is a 74-year-old female with right lower quadrant abdominal pain here for evaluation. We will do a GI workup at this time. We will rule out cardiovascular event as well. No cardiovascular event seen. There is a right ovarian cysts that has enlarged to 8.8 cm and likely the cause of her pain. We will discuss with Gyne E and get further recommendation. We discussed the case and ultrasound this evening is needed to rule out torsion of the right ovary. We will transfer patient [facility] at this time for ultrasound as we do not have at this facility. I discussed the case with Dr. Chowdary and she will be awaiting any positive results to admit the patient. Lab Data Attestation: I reviewed the patient's lab results. 03/21/25 15:42 03/21/25 15:42 Labs: Lab Results 03/21/25 03/21/25 Range/Units 15:09 15:42 WBC 10.8 (4.8-10.8) K/mm3 RBC 4.67 (4.20-5.40) M/mm3 Hgb 13.1 (11.7-13.8) g/dL Hct 41.7 (35.0-42.0) % MCV 89.3 (78.0-102.0) fL MCH 28.1 (27.0-31.0) pg MCHC 31.4 L (32-36) g/dL RDW 14.9 H (11.6-14.4) % Plt Count 181 (150-420) K/mm3 MPV 11.4 (9.2-11.8) fl Immature Gran % (Auto) 0.5 H (0.0-0.0) % Neut % (Auto) 84.2 H (50.0-70.0) % Lymph % (Auto) 8.4 L (18.0-42.0) % [place] % (Auto) 5.6 (2.0-11.0) % Eos % (Auto) 0.9 L (1.0-6.0) % Baso % (Auto) 0.4 (0.0-1.0) % Lymph # (Auto) 0.91 L (1.10-4.50) K/mm3 [place] # (Auto) 0.61 (0.10-0.90) K/mm3 Eos # (Auto) 0.10 (0.02-0.50) K/mm3 Baso # (Auto) 0.04 (0.00-0.10) K/mm3 Abs Immat Gran (auto) 0.05 H (0.00-0.00) K/mm3 Absolute Neuts (auto) 9.13 H (1.70-7.20) K/mm3 Absolute Nucleated RBC 0.00 (0.00-0.00) K/mm3 Nucleated RBC % 0.0 (0-0.0) % PT 10.9 (9.50-12.1) Seconds INR 1.0 APTT 27.7 (23.9-30.70) Sec Sodium 141 (137-145) mmol/L Potassium 3.3 L (3.4-5.0) mmol/L Chloride 107 (98-107) mmol/L Carbon Dioxide 28 (22-30) mmol/L Anion Gap 6 (4-12) mmol/L BUN 31 H D (7-17) mg/dL Creatinine 2.32 H (0.7-1.0) mg/dL Estim Creat Clear Calc 24 ml/min Estimated GFR 20 L (59 - ) Glucose 196 H (65-110) mg/dL Calculated Osmolality 303 H (285-295) mOsm/kg Lactic Acid 1.2 (0.4-2.0) mmol/L Calcium 9.0 (8.4-10.2) mg/dL Total Bilirubin 0.8 (0.2-1.3) mg/dL AST 25 (14-36) U/L ALT 20 (6-35) U/L Alkaline Phosphatase 79 (38-126) U/L Troponin I 0.014 (0.000-0.034) ng/mL Total Protein 7.2 (6.3-8.2) g/dL Albumin 4.0 (3.5-5.1) g/dL Lipase 123 (23-300) U/L Urine Color Light yellow (Yellow) Urine Appearance Clear (Clear) Urine pH 6.0 (5.0-8.0) Ur Specific [place] 1.015 (1.010-1.020) Urine Protein 2+ H (Negative) Urine Glucose (UA) Trace H (Negative) Urine Ketones Negative (Negative) Ur Blood (Man) Trace-intact H (Negative) Urine Nitrate Negative (Negative) Urine Bilirubin Negative (Negative) Urine Urobilinogen 0.2 (0.2-1.0) mg/dL Leukocyte Esterase Rfl Negative (Negative) WILLIE/UL Urine RBC None seen (0-2) /hpf Urine Mucus Rare /lpf Imaging Data Attestation: I personally reviewed and interpreted this imaging study as follows: Radiologist's impression: ITS Impressions Abdomen/Pelvis CT 03/21/25 15:58 IMPRESSION: Hepatomegaly. 8.8 cm simple appearing right upper pelvic cyst, likely associated with the right ovary. This lesion appears to have been present in the prior CT in 2017, where it measured 2.4 cm. This likely represents an enlarging simple ovarian cyst, most likely a benign neoplasm. Recommend pelvic MRI for more definitive characterization (ovaries not visualized in prior pelvic ultrasound) and gynecology consultation. ECG Data EKG #1: Attestation: I personally reviewed and interpreted this ECG as follows: ECG completion date: 03/21/25 ECG completion time: 16:08 normal rate, sinus rhythm, no ectopy, non-specific ST changes, normal QRS, normal QT and left axis Discharge Plan Discharge Clinical Impression: Cyst, ovarian Qualifiers: Laterality: right Qualified Code(s): N83.201 - Unspecified ovarian cyst, right side Patient Disposition: Acute Care Hospital Condition: Stable Patient Language: Macedonian Prescriptions: No Action clopidogrel 75 mg tablet 75 mg PO DAILY nitroglycerin 0.4 mg tablet, sublingual 0.4 mg sublingual Q5M clonidine HCl 0.1 mg tablet 0.1 mg PO DAILY pantoprazole 40 mg tablet,delayed release (DR/EC) 40 mg PO HS atorvastatin 80 mg tablet 80 mg PO HS cholecalciferol (vitamin D3) 50 mcg (2,000 unit) capsule 50 mcg PO HS metoprolol tartrate 25 mg tablet 25 mg PO BID aspirin [Adult Aspirin Regimen] 81 mg tablet,delayed release (DR/EC) 81 mg PO DAILY (DME) lancets [Accu-Chek Softclix Lancets] Misc See Rx Instructions .Route Qty: 100 0RF Rx Instructions: use to check blood sugar three times per day (DME) pen needle, diabetic [TRUEplus Pen Needle] 31 gauge x 5/16 needle See Rx Instructions .ROUTE .COMPLEX Qty: 300 0RF Dose Instruction: USE TO CHECK BLOOD GLUCOSE 3 TIMES DAILY Rx Instructions: USE TO CHECK BLOOD GLUCOSE 3 TIMES DAILY (DME) lancets [OneTouch Delica Plus Lancet] 33 gauge misc See Rx Instructions .Route Qty: 300 0RF Rx Instructions: As directed 3 times a day (DME) OneTouch Verio test strips Strip See Rx Instructions .ROUTE .MEDSUPPLY Qty: 300 3RF Rx Instructions: use to check BS 4 times daily(E11.653 furosemide 20 mg tablet See Rx Instructions .ROUTE .COMPLEX Qty: 180 3RF Dose Instruction: TAKE TWO TABLETS BY MOUTH EVERY MORNING Rx Instructions: TAKE TWO TABLETS BY MOUTH EVERY MORNING calcitriol 0.25 mcg capsule 0.25 mcg PO 3XW Qty: 12 6RF Rx Instructions: administer/take on Mondays, Wednesdays, and Fridays Humulin R U-500 (Conc) Kwikpen 500 unit/mL (3 mL) insulin pen See Rx Instructions .ROUTE .COMPLEX Qty: 12 1RF Dose Instruction: INJECT 90 UNITS SUBCUTANEOUSLY WITH BREAKFAST, 50 UNITS WITH LUNCH, AND 80 UNITS WITH SUPPER DAILY Rx Instructions: INJECT 100 UNITS SUBCUTANEOUSLY WITH BREAKFAST, 60 UNITS WITH LUNCH, AND 85 UNITS WITH SUPPER DAILY Follow-up/Referrals: James Candelaria DO [Primary Care Provider] - Time of Disposition: 16:43
--- OUTSIDE RECORDS SUMMARY | 2025-03-21 15:43 | XMS_ITS | Clinical Summary ---
Author Organization [facility] Address [address] [place] [address] Care Team Providers Care Dynamite Shooter Name Role Phone Unavailable Primary Care Provider Unavailabl e Source Comments [facility],non-owned Affiliates and Associated Physician Practices is amultiple site organization consisting of ambulatory clinics and hospital sitesin [place], [place], [place] and [place]. This disclosure is being madepursuant to the Care Everywhere program and may not contain all information available regarding this patient. 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
--- OUTSIDE RECORDS SUMMARY | 2025-03-21 15:43 | XMS_ITS | Clinical Summary ---
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 ASSESSMENT: Right [...] IMAGING WORKUP WILL BE SCHEDULED BY THE [facility]. Narrative 12/09/2013 11:35 AM EARTHMOVING LABOURER BILATERAL SCREENING MAMMOGRAM WITH TOMOSYNTHESIS TECHNIQUE: Bilateral [...] IMAGING WORKUP WILL BE SCHEDULED BY THE [facility]. us Zaid Arenas MD IMG MAMMO ORDERABLES Final R esult from Last 3 Months or Most Recently Relevant to Health Maintenance
--- OUTSIDE RECORDS SUMMARY | 2025-03-21 15:43 | XMS_ITS | Referral Summary ---
Author Organization [facility] Address [address] [place] [address] Care Team Providers Care Restaurant Attendant Name Role Phone James Candelaria Primary Care Provider Encounters Date Type Department Care Team Description 03/01/2025 11:15 AM CDT Office Visit [facility] Cardiology at [address] [place] [address] Hussain Rollins MD Coronary artery disease of cherokee artery of cherokee heart with stable angina pectoris (Primary Dx); Hyperlipidemia associated with type 2 diabetes mellitus (HCC); Hypertension associated with diabetes (HCC); Severe obesity (HCC); Body mass index 40.0-44.9, adult (CMS/HCC) (HCC); Coronary artery disease involving cherokee coronary artery of cherokee heart without angina pectoris 12/21/2024 Telephone [facility] Cardiology [address] [facility] [address] [place] [address] Hussain Rollins MD from Last 3 Months Allergies Active Allergy Reactions Criticality Noted Date Comments Adhesive Rash Medium Apricot Anaphylaxis,Rash High 04/23/2022 Other Rash Medium 04/23/2022 Clothing dye [place] Anaphylaxis,Rash High 04/23/2022 Prochlorperazine Anaphylaxis High Medications [...] enteric coated tabletIndication s:Coronary artery disease of cherokee artery of cherokee heart with stable angina pectoris Take 1 [...] 2 diabetes mellitus (HCC),Coronary artery disease involving cherokee coronary artery of cherokee heart without angina pectoris TAKE ONE TABLET BY MOUTH DAILY 90 tablet 3 11/30/19 25 Active metoprolol tartrate (LOPRESSOR) 25 mg immediate release tabletIndication s:Coronary artery disease of [place] artery of cherokee heart with stable angina pectoris Take 1 tablet (25 mg total) by mouth 2 (two) times a day 60 tablet 03/01/20 25 026 Active nitroglycerin (Nitrostat) 0.4 mg SL tabletIndication s:Coronary artery disease involving cherokee coronary artery of cherokee heart without angina pectoris Place 1 tablet (0.4 mg total) under the tongue every 5 (five) minutes as needed for chest pain 25 tablet 3 03/01/20 25 026 Active nitroglycerin (Nitrostat) 0.4 mg SL tabletIndication s:Coronary artery disease involving cherokee coronary artery of cherokee heart without angina pectoris Place 1 tablet (0.4 mg total) under the tongue every 5 (five) minutes as needed for chest pain 25 tablet 3 05/04/20 24 025 Discontin ued(Reord er) metoprolol tartrate (LOPRESSOR) 25 mg immediate release tabletIndication s:Coronary artery disease involving cherokee coronary artery of cherokee heart without angina pectoris TAKE HALF A TABLET BY MOUTH TWICE A DAY 90 tablet 1 09/14/20 24 025 Discontin ued(Dupli quan order) Active Problems Problem Noted Date Diagnosed Date Severe obesity 03/01/2025 Syncope and collapse 11/21/2023 Anemia 05/21/2022 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, unspecified vessel or lesion type, unspecified whether cherokee or transplanted heart 04/27/2022 Atypical chest pain 03/20/2022 Morbid (severe) obesity due to excess calories 0 03/20/2022 Body mass index 40.0-44.9, adult ([facility]) 03/20 Morbid obesity 09/12/2021 NIMA (obstructive sleep apnea) 09/12/2021 Systolic ejection murmur 06/19/2019 Coronary artery disease of n ative artery of cherokee heart with stable angina pectoris 03/20/2017 Hyperlipidemia [...] on file Legal Sex Female 3:26 AM RIBBON HAND Gender Identity Female 05/22/2019 11:23 AM CDT Sexual Orientation Straight 10/24/2021 7: 58 AM RIBBON HAND Last Filed Vital Signs Vital Sign Reading Time Taken Comments Blood Pressure 136/86 03/01/2025 10:53 AM CDT Pulse 100 03/01/2025 10:53 AM CDT Temperature 36.6 C (97.9 F) 11/02/2024 6:30 PM RIBBON HAND Respiratory Rate 24 11/02/2024 6:30 PM RIBBON HAND Oxygen Saturation 94% 03/01/2025 10:53 AM CDT Inhaled Oxygen Concentration - - Weight 117 kg (258 lb) 03/01/2025 11:24 AM CDT Height 167.6 cm (5' 6) 03/01/2025 10:53 AM CDT Body Mass Index 41.64 03/01/2025 10:53 AM CDT Plan of Treatment Not on file Medical Devices Implanted Type Area Tugboat Pilot Device Identifier Shelf Expiration Date Model / Serial / Lot Medtronic Inc Resolute [place] 4mm 2.1-2.7fr 18mm 140cm Rapid Exchange Radiopaque [id number] - [id number] Implanted:Qty: 1 on 04/27/2022 by Logan Ceron MD at [facility] [employer] 01/06/2025 [id number] / / [id number] Med[employer]onic Inc Resolute Efren 4mm 2.1-2.7fr 18mm 140cm Rapid Exchange Radiopaque [id number] - [id number] Implanted:Qty: 1 on 04/27/2022 by Logan Ceron MD at [facility] [employer] 08/22/2024 [id number] / / [id number] [employer] Angio-Seal Vip 6fr Closere Device [id number] - [id number] Implanted:Qty: 1 on 04/27/2022 by Logan Ceron MD at [facility] [employer] 02/10/2023 [id number] / / [id number] Procedures Procedure Name Priority Date/Time Associated Diagnosis Comments POCT LIPID PANEL Routine 11/21/2023 2:00 PM RIBBON HAND Coronary artery disease of cherokee artery of cherokee heart with stable angina pectoris Hyperlipidemia associated with type 2 diabetes mellitus (HCC) EGFR Routine 02/14/2017 1:23 AM CDT HEMOGLOBIN A1C STAT 01/29/2017 12:02 PM CDT from Last 3 Months or Most Recently Relevant to Health Maintenance Results * POCT lipid panel (11/21/2023 2:00 PM RIBBON HAND) Pathologist [facility] Cholesterol, POC 104 mg/dL HDL, POC 31 mg/dL Triglycerides, POC 165 mg/dL LDL Cholesterol POC 41 mg/dL Chol/HDL Ratio, POC 3.4 Non-HDL Cholesterol, POC 74 mg/dL Cholesterol Total, POC 104 mg/dL Capillary blood 11/21/2023 2 :00 PM RIBBON HAND us Hussain Rollins MD POINT OF CARE TEST ORDERA BLES Edited Result - Final * eGFR (02/14/2017 1:23 AM CDT) Pathologist [facility] eGFR 14 mL/min/1.7 3 m2 [facility] Comment: Interpretive Data Reference Interval Normal [...] Performing Organization Address City/[facility]/ZIP Co de Phone Number [facility] [address] Department [employer] [place], [place] [id number] * (ABNORMAL) Hemoglobin A1c (01/29/2017 12:02 PM CDT) Hgb A1C 11.2(H) 4.0 - 6.0 % [facility] Blood specimen (specimen) 01/29/2017 12:02 PM CDT 01/29/2017 1:45 PM CDT Will Mcmahon MD LAB BLOOD ORDERABLES Final Re sult [facility] [address] Department of [employer] [place], [place] [id number] from Last 3 Months or Most Recently Relevant to Health Maintenance Insurance [facility] MEDICARE ADVANTAGE [facility] MDCR HMO REF [facility] MEDICARE ADVANTAGE Member Subscriber Plan / Payer (Ef fective 2022-Present) Name:Jessika Falk Relation to Subscriber:Self Name:Jessika Falk Payer ID:[id number] (NAIC) Type:[facility] MEDICARE Address: [place] [id number] [place] [phone] Care Teams Restaurant Attendant Relationship Specialty Start Date End Date James Candelaria DO [facility] [place] [address] PCP - General Family Medicine 01/28/24
--- OUTSIDE RECORDS SUMMARY | 2025-03-21 15:43 | XMS_ITS | Clinical Summary ---
Author Organization [facility] Address [address] [place] [address] Phone Care Team Providers Care Air Commodore Name Role Phone Lorena Anthony MD Primary Care Provider +1- [phone] Allergies Active Allergy Reactions Criticality Noted Date [...] once 6 Active Blood Glucose Monitoring Suppl (KitengaTOUCH VERIO) w/Device kit 0 Active ONETOUCH VERIO [...] 20 MG tablet 1 Active TRUEplus Pen [place] 31G X 8 MM misc 2 Active [...] diabetic kidney complication 10/10/2014 Coronary arteriosclerosis in [place] artery 08/19 Overview (07/05/2019): Overview: CAD (coronary [...] exists Insurance [employer] MEDICARE Care Teams Air Commodore Relationship Specialty Start Date End Date Lorena Anthony MD [address] [facility] [address] [facility] [address] [place] [address] PCP - General Internal Medicine 04/27/20
--- OUTSIDE RECORDS SUMMARY | 2025-03-21 15:43 | XMS_ITS | Clinical Summary ---
Author Organization [facility] Address [address] [place] [address] Care Team Providers Care Abstracter Name Role Phone James Candelariah Primary Care Provider Allergies Active Allergy Reactions Criticality Noted Date Comments Adhesive Rash Medium Apricot Anaphylaxis,Rash High 04/23/2022 Other Rash Medium 04/23/2022 Clothing dye [place] Anaphylaxis,Rash High 04/23/2022 Prochlorperazine Anaphylaxis High Medications [...] enteric coated tabletIndication s:Coronary artery disease of [place] artery of [place] heart with stable angina pectoris Take 1 [...] 2 diabetes mellitus (HCC),Coronary artery disease involving [place] coronary artery of [place] heart without angina pectoris TAKE ONE TABLET BY MOUTH DAILY 90 tablet 3 11/30/19 25 Active metoprolol tartrate (LOPRESSOR) 25 mg immediate release tabletIndication s:Coronary artery disease of [place] artery of [place] heart with stable angina pectoris Take 1 tablet (25 mg total) by mouth 2 (two) times a day 60 tablet 11 03/01/20 026 Active nitroglycerin (Nitrostat) 0.4 mg SL tabletIndication s:Coronary artery disease involving [place] coronary artery of [place] heart without angina pectoris Place 1 tablet (0.4 mg total) under the tongue every 5 (five) minutes as needed for chest pain 25 tablet 3 03/01/20 25 026 Active nitroglycerin (Nitrostat) 0.4 mg SL tabletIndication s:Coronary artery disease involving [place] coronary artery of [place] heart without angina pectoris Place 1 tablet (0.4 mg total) under the tongue every 5 (five) minutes as needed for chest pain 25 tablet 3 05/04/20 24 025 Discontin ued(Reord er) metoprolol tartrate (LOPRESSOR) 25 mg immediate release tabletIndication s:Coronary artery disease involving [place] coronary artery of [place] heart without angina pectoris TAKE HALF A TABLET BY MOUTH TWICE A DAY 90 tablet 1 09/14/20 24 025 Discontin ued(Dupli quan order) Active Problems Problem Noted Date Diagnosed Date Severe obesity 03/01/2025 Syncope and collapse 11/21/2023 Anemia 05/21/2022 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, unspecified vessel or lesion type, unspecified whether [place] or transplanted heart 04/27/2022 Atypical chest pain 03/20/2022 Morbid (severe) obesity due to excess calories 0 03/20/2022 Body mass index 40.0-44.9, adult (CMS/HCC) 03/20 Morbid obesity 09/12/2021 NIMA (obstructive sleep apnea) 09/12/2021 Systolic ejection murmur 06/19/2019 Coronary artery disease of n ative artery of [place] heart with stable angina pectoris 03/20/2017 Hyperlipidemia [...] Description 03/01/2025 11:15 AM CDT Office Visit [facility] Cardiology at [address] [place] [address] Hussain Rollins MD Coronary artery disease of [place] artery of [place] heart with stable angina pectoris (Primary Dx); Hyperlipidemia associated with type 2 diabetes mellitus (HCC); Hypertension associated with diabetes (HCC); Severe obesity (HCC); Body mass index 40.0-44.9, adult (CMS/HCC) (HCC); Coronary artery disease involving [place] coronary artery of [place] heart without angina pectoris 12/21/2024 Telephone [facility] Cardiology [address] [place] [address] Hussain Rollins MD from Last [...] 08/19/2014 - Sleep apnea Coronary artery disease GA (myocardial infarction) (HCC) Hypertension Type 2 diabetes mellitus (HCC) PONV (postoperative nausea and vomiting) Cataract Motion sickness CKD (chronic kidney disease) Kidney stone Malignant neoplasm of left breast (HCC) Deafness in right ear Awareness under anesthesia Heart murmur 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, unspecified vessel or lesion type, unspecified whether [place] or transplanted heart Chronic pain disorder Brain [...] on file Legal Sex Female 3:26 AM LICENSED MARRIAGE AND FAMILY THERAPIST Gender Identity Female 05/22/2019 11:23 AM CDT Sexual Orientation Straight 10/24/2021 7: 58 AM LICENSED MARRIAGE AND FAMILY THERAPIST Obstetrics History Last Filed Vital Signs Vital Sign Reading Time Taken Comments Blood Pressure 136/86 03/01/2025 10:53 AM CDT Pulse 100 03/01/2025 10:53 AM CDT Temperature 36.6 C (97.9 F) 11/02/2024 6:30 PM LICENSED MARRIAGE AND FAMILY THERAPIST Respiratory Rate 24 11/02/2024 6:30 PM LICENSED MARRIAGE AND FAMILY THERAPIST Oxygen Saturation 94% 03/01/2025 10:53 AM CDT [...] 12/09/2013, 12/06/2012 Medical Devices Implanted Type Area Housekeeper Manager Device Identifier Shelf Expiration Date Model / Serial / Lot Medtronic Inc Resolute Efren 4mm 2.1-2.7fr 18mm 140cm Rapid Exchange Radiopaque [id number] - [id number] Implanted:Qty: 1 on 04/27/2022 by Logan Ceron MD at [facility] [employer] 01/06/2025 [id number] / / [id number] Med[employer] Inc Resolute [place]aph[place] 4mm 2.1-2.7fr 18mm 140cm Rapid Exchange Radiopaque [id number] - [id number] Implanted:Qty: 1 on 04/27/2022 by Logan Ceron MD at [facility] [employer] 08/22/2024 [id number] / / [id number] [employer] Angio-Seal Vip 6fr Closere Device [id number] - [id number] Implanted:Qty: 1 on 04/27/2022 by Logan Ceron MD at [facility] [employer] 02/10/2023 [id number] / / [id number] Procedures Procedure Name Priority Date/Time Associated Diagnosis Comments POCT LIPID PANEL Routine 11/21/2023 2:00 PM LICENSED MARRIAGE AND FAMILY THERAPIST Coronary artery disease of [place] artery of [place] heart with stable angina pectoris Hyperlipidemia associated with type 2 diabetes mellitus (HCC) EGFR Routine 02/14/2017 1:23 AM CDT HEMOGLOBIN A1C STAT 01/29/2017 12:02 PM CDT from Last 3 Months or Most Recently Relevant to Health Maintenance Results * POCT lipid panel (11/21/2023 2:00 PM LICENSED MARRIAGE AND FAMILY THERAPIST) Cholesterol, POC 104 mg/dL HDL, POC 31 mg/dL Triglycerides, POC 165 mg/dL LDL Cholesterol POC 41 mg/dL Chol/HDL Ratio, POC 3.4 Non-HDL Cholesterol, POC 74 mg/dL Cholesterol Total, POC 104 mg/dL Capillary blood 11/21/2023 2 :00 PM LICENSED MARRIAGE AND FAMILY THERAPIST us Hussain Rollins MD POINT OF CARE TEST ORDERA BLES Edited Result - Final * eGFR (02/14/2017 1:23 AM CDT) eGFR 14 mL/min/1.7 3 m2 [facility] Comment: Interpretive Data Reference Interval Normal >/= 90 mL/min/1.73m2 Mildly decreased* 60 - 89 mL/min/1.73m2 Mildly to moderately decreased 45 - 59 mL/min/1.73m2 Moderately to severely decreased 30 - 44 mL/min/1.73m2 Severely decreased 15 - 29 mL/min/1.73m2 Kidney Failure < 15 mL/min/1.73m2 *Relative to young adult level If -Malian multiply value by 1.16. Estimated glomerular filtration [...] ORDERABLES Final Re sult Performing Organization Address City/[facility]/ZIP Co de Phone Number [facility] [address] Department [employer] [place], [place] [phone] * (ABNORMAL) Hemoglobin A1c (01/29/2017 12:02 PM CDT) Hgb A1C 11.2(H) 4.0 - 6.0 % [facility] Blood specimen (specimen) 01/29/2017 12:02 PM CDT 01/29/2017 1:45 PM CDT us Will Mcmahon MD LAB BLOOD ORDERABLES Final Re sult [facility] [address] Department [place] [address] from Last 3 Months or Most Recently Relevant to Health Maintenance Insurance MEDICARE ADVANTAGE [facility] MEDICARE Address: [address] [place], [place] [phone] [place] [id number] [facility] MDCR HMO REF [facility] MEDIC[facility] Address: [place] [id number] [place] [phone] [place] [id number] [facility] MEDICARE ADVANTAGE [facility] MEDIC[facility] Address: [address] [address] [place] [phone] Care Teams Abstracter Relationship Specialty Start Date End Date James Candelaria DO [address] [place] [address] PCP - General Family Medicine 01/28/24
--- OUTSIDE RECORDS SUMMARY | 2025-03-21 15:44 | XMS_ITS | Clinical Summary ---
Author Organization [facility] Address [address] [place] [address] Phone Care Team Providers Care Roofing Machine Tender Name Role Phone Lorena Anthony MD Primary Care Provider +1- [phone] Allergies Active Allergy Reactions Criticality Noted Date Comments Adhesive Unknown Medium 11/14/2023 Cefdinir Unknown 11/14/2023 Hydrocodone Unknown 11/14/2023 [place] Anaphylaxis High 11/16/2023 Prochlorperazine Unknown 11/14/2023 Medications [...] 11/14/2023 History of COVID-19 11/14/2023 Atherosclerosis of [place] co ronary artery of [place] heart without angina pectoris 11/14/2023 S/P CABG [...] on file Legal Sex Female 7:46 PM MATERIAL PROCESSOR Gender Identity Not on file Sexual Orientation Not on file Last Filed Vital Signs Vital Sign Reading Time Taken Comments Blood Pressure 153/60 11/16/2023 7:23 AM MATERIAL PROCESSOR Pulse 66 11/16/2023 7:23 AM MATERIAL PROCESSOR Temperature 36.7 C (98.1 F) 11/16/2023 8:07 AM MATERIAL PROCESSOR Respiratory Rate 21 11/16/2023 7:23 AM MATERIAL PROCESSOR Oxygen Saturation 96% 11/16/2023 7:23 AM MATERIAL PROCESSOR Inhaled Oxygen Concentration - - Weight 104.6 kg (230 lb 11.2 oz) 11/14/2023 2:26 AM MATERIAL PROCESSOR Height 167.6 cm (5' 6) 11/14/2023 2:26 AM MATERIAL PROCESSOR Body Mass Index 37.24 11/14/2023 2:26 AM MATERIAL PROCESSOR Plan of Treatment Health Maintenance Due Date [...] 2023-2 5 season) 2024 05/03/2021, 04/12/[address] [facility] [address] DUAL COMPLETE PPO [facility] [id number] Advance Directives For more information, please contact: [phone] * Full Code (Latest Code Status on File) Date Activated Date Inactivated Comments 11/14/2023 5:11 AM 11/16/2023 3:51 PM Care Teams Roofing Machine Tender Relationship Specialty Start Date End Date Lorena Anthony MD [address] [facility] [address] [place] [address] PCP - General Family Practice 11/14/23
[2025-03-21 15:49] LABS: Basophils Absolute Auto 0.04 K/mm3 (0.00-0.10); Basophils Percent Auto 0.4 % (0.0-1.0); Eosinophils Percent Auto 0.9 % (1.0-6.0); Hematocrit 41.7 % (35.0-42.0); Hemoglobin 13.1 g/dL (11.7-13.8); Immature Granulocyte Absolute 0.05 K/mm3 (0.00-0.00); Immature Granulocyte Percent A 0.5 % (0.0-0.0); Lymphocytes Absolute Auto 0.91 K/mm3 (1.10-4.50); Lymphocytes Percent Auto 8.4 % (18.0-42.0); Mean Corpuscular HGB Conc 31.4 g/dL (32-36); Mean Corpuscular Hemoglobin 28.1 pg (27.0-31.0); Mean Corpuscular Volume 89.3 fL (78.0-102.0); Mean Platelet Volume 11.4 fl (9.2-11.8); Monocytes Absolute Auto 0.61 K/mm3 (0.10-0.90); Monocytes Percent Auto 5.6 % (2.0-11.0); Neutrophils Absolute Auto 9.13 K/mm3 (1.70-7.20); Neutrophils Percent Auto 84.2 % (50.0-70.0); Platelet Count Result 181 K/mm3 (150-420); Red Blood Count 4.67 M/mm3 (4.20-5.40); Red Cell Distribution Width 14.9 % (11.6-14.4); White Blood Count 10.8 K/mm3 (4.8-10.8)
[2025-03-21 15:50] LABS: Add Urine Microscopic? YES; Appearance Urine Clear (Clear); Bilirubin Urine Negative (Negative); Blood Urine Trace-intact (Negative); Color Urine Light Yellow (Yellow); Glucose Urine UA Trace (Negative); Ketones Urine Negative (Negative); Leukocyte Esterase Ur Negative LEU/UL (Negative); Nitrate Urine Negative (Negative); Protein Urine 2+ (Negative); Specific Grav Ur 1.015 (1.010-1.020); Urobilinogen Urine 0.2 mg/dL (0.2-1.0)
[2025-03-21 16:04] LABS: Mucus Urine Rare /lpf; RBC Urine None seen /hpf (0-2)
[2025-03-21 16:08] LABS: Partial Thromboplastin Time 27.7 Sec (23.9-30.70); Prothrombin Time 10.9 Seconds (9.50-12.1)
[2025-03-21 16:11] LABS: Alanine Aminotransferase 20 U/L (6-35); Alkaline Phosphatase 79 U/L (38-126); Anion Gap 6 mmol/L (4-12); Aspartate Amino Transferase 25 U/L (14-36); Bilirubin,Total 0.8 mg/dL (0.2-1.3); Blood Urea Nitrogen 31 mg/dL (7-17); Carbon Dioxide 28 mmol/L (22-30); Chloride 107 mmol/L (98-107); Estimated CRCL calculation 24 ml/min; Estimated Glomerular Filt Rate 20; Glucose 196 mg/dL (65-110); Lactic Acid Reflex 1.2 mmol/L (0.4-2.0); Lipase 123 U/L (23-300); Osmolality Calculated 303 mOsm/kg (285-295); Potassium 3.3 mmol/L (3.4-5.0); Sodium 141 mmol/L (137-145); Total Protein 7.2 g/dL (6.3-8.2)
[2025-03-21 16:23] LABS: Troponin I 0.014 ng/mL (0.000-0.034)
[2025-03-21 16:40] VITALS: BP 170/83; PULSE 84; RESP 18; TEMP 36.6; O2SAT 96
[2025-03-21] MEDS: MORPHINE SULFATE (*CRX) 4 MG/ML INJ IM (16:52)
== END 2025-03-21 17:21 | disposition short-term general hospital (02) ==
PROVIDERS: Emergency Provider Emergency Medicine; PCP Family Medicine
DX: N83.201 Unspecified ovarian cyst, right side (principal); R10.31 Right lower quadrant pain; J44.9 Chronic obstructive pulmonary disease, unspecified; I25.10 Atherosclerotic heart disease of native coronary artery without angina pectoris; I12.9 Hypertensive chronic kidney disease with stage 1 through stage 4 chronic kidney disease, or unspecified chronic kidney disease; E11.22 Type 2 diabetes mellitus with diabetic chronic kidney disease; N18.4 Chronic kidney disease, stage 4 (severe); Z85.3 Personal history of malignant neoplasm of breast; Z79.899 Other long term (current) drug therapy; Z87.891 Personal history of nicotine dependence
CPT/HCPCS: 36415; 74176; 80053; 81001; 83605; 83690; 84484; 85025; 85610; 85730; 93005; 96372; 99285; J2270

== ENCOUNTER 2025-03-21 17:52 | Emergency (ER) | payer MEDICARE, SELFPAY ==
--- NOTE | ~2025-03-21 | US_ITS ---
EXAMINATION: US pelvic complete DATE: 03/21/2025 18:41 INDICATION: r/o ovarian torsion TECHNIQUE: Multiple transabdominal sonographic images of the pelvis were obtained. COMPARISON: CT abdomen pelvis, same date. FINDINGS: Uterus: 8.0 x 4.2 x 5.2 cm. Endometrial complex measures 8 mm. Right Ovary: Not well visualized. 8.5 cm thin-walled cystic right adnexal/upper pelvic mass. Adjacent , 2.6 cm rounded hypoechoic area containing a 12 mm anechoic focus, may represent an adjacent cyst or a lobular extension of the larger cystic mass and ovarian tissue. Left Ovary: Not visualized. There is no free fluid in the pelvis. IMPRESSION: 8.5 cm right adnexal/upper pelvic cyst. There is either a smaller 12 mm adjacent cyst or a lobular ex tension of the larger cyst, probably associated with ovarian tissue. Prior recommendation for pelvic MRI and gynecology consultation is unchanged. Endometrial thickening. Recommend referral for endometrial sampling. Bilateral ovaries not confidently visualized. Reviewed, dictated and finalized at location K. IMPRESSION: 8.5 cm right adnexal/upper pelvic cyst. There is either a smaller 12 mm adjacen t cyst or a lobular extension of the larger cyst, probably associated with ovar mirella tissue. Prior recommendation for pelvic MRI and gynecology consultation is unchanged. Endometrial thickening. Recommend referral for endometrial sampling. Bilateral ovaries not confidently visualized.
[2025-03-21 17:49] VITALS: BP 185/74; PULSE 82; RESP 16; TEMP 36.4; O2SAT 96
--- OUTSIDE RECORDS SUMMARY | 2025-03-21 19:10 | XMS_ITS | Clinical Summary ---
Author Organization [facility] Address [address] [place] [address] Phone Care Team Providers Care Sole Sewer Hand Name Role Phone Lorena Anthony MD Primary Care Provider +1- [phone] Allergies Active Allergy Reactions Criticality Noted Date Comments Adhesive Unknown Medium 11/14/2023 Cefdinir Unknown 11/14/2023 Hydrocodone Unknown 11/14/2023 [place] Anaphylaxis High 11/16/2023 Prochlorperazine Unknown 11/14/2023 Medications [...] 11/14/2023 History of COVID-19 11/14/2023 Atherosclerosis of [place] co ronary artery of [place] heart without angina pectoris 11/14/2023 S/P CABG [...] on file Legal Sex Female 7:46 PM RECREATION MANAGER Gender Identity Not on file Sexual Orientation Not on file Last Filed Vital Signs Vital Sign Reading Time Taken Comments Blood Pressure 153/60 11/16/2023 7:23 AM RECREATION MANAGER Pulse 66 11/16/2023 7:23 AM RECREATION MANAGER Temperature 36.7 C (98.1 F) 11/16/2023 8:07 AM RECREATION MANAGER Respiratory Rate 21 11/16/2023 7:23 AM RECREATION MANAGER Oxygen Saturation 96% 11/16/2023 7:23 AM RECREATION MANAGER Inhaled Oxygen Concentration - - Weight 104.6 kg (230 lb 11.2 oz) 11/14/2023 2:26 AM RECREATION MANAGER Height 167.6 cm (5' 6) 11/14/2023 2:26 AM RECREATION MANAGER Body Mass Index 37.24 11/14/2023 2:26 AM RECREATION MANAGER Plan of Treatment Health Maintenance Due Date [...] season) 2024 05/03/2021, 04/12/2021 Insurance [facility] [address] DUAL COMPLETE PPO [facility] [id number] Advance Directives For more information, please contact: [phone] * Full Code (Latest Code Status on File) Date Activated Date Inactivated Comments 11/14/2023 5:11 AM 11/16/2023 3:51 PM Care Teams Sole Sewer Hand Relationship Specialty Start Date End Date Lorena Anthony MD [address] [facility] [address] [place] [address] PCP - General Family Practice 11/14/23
--- OUTSIDE RECORDS SUMMARY | 2025-03-21 19:10 | XMS_ITS | Clinical Summary ---
Author Organization [facility] Address [address] [place] [address] Care Team Providers Care Validation Specialist Name Role Phone James Candelariah Primary Care Provider Allergies Active Allergy Reactions Criticality Noted Date Comments Adhesive Rash Medium Apricot Anaphylaxis,Rash High 04/23/2022 Other Rash Medium 04/23/2022 Clothing dye [place] Anaphylaxis,Rash High 04/23/2022 Prochlorperazine Anaphylaxis High Medications [...] enteric coated tabletIndication s:Coronary artery disease of [place]osh[place]pai[place] artery of shoshone[place]paiute heart with stable angina pectoris Take 1 [...] 2 diabetes mellitus (HCC),Coronary artery disease involving shoshone[place]paiute coronary artery of shoshone-paiute heart without angina pectoris TAKE ONE TABLET BY MOUTH DAILY 90 tablet 3 11/30/19 25 Active metoprolol tartrate (LOPRESSOR) 25 mg immediate release tabletIndication s:Coronary artery disease of [place] artery of [place]paiute heart with stable angina pectoris Take 1 tablet (25 mg total) by mouth 2 (two) times a day 60 tablet 11 03/01/20 026 Active nitroglycerin (Nitrostat) 0.4 mg SL tabletIndication s:Coronary artery disease involving [place]osh[place]ai[place] coronary artery of shosh[place]paiute heart without angina pectoris Place 1 tablet (0.4 mg total) under the tongue every 5 (five) minutes as needed for chest pain 25 tablet 3 03/01/20 25 026 Active nitroglycerin (Nitrostat) 0.4 mg SL tabletIndication s:Coronary artery disease involving [place]osh[place]aiute coronary artery of shosh[place]paiute heart without angina pectoris Place 1 tablet (0.4 mg total) under the tongue every 5 (five) minutes as needed for chest pain 25 tablet 3 05/04/20 24 025 Discontin ued(Reord er) metoprolol tartrate (LOPRESSOR) 25 mg immediate release tabletIndication s:Coronary artery disease involving [place]osh[place]aiute coronary artery of shoshone[place]paiute heart without angina pectoris TAKE HALF A TABLET BY MOUTH TWICE A DAY 90 tablet 1 09/14/20 24 025 Discontin ued(Dupli quan order) Active Problems Problem Noted Date Diagnosed Date Severe obesity 03/01/2025 Syncope and collapse 11/21/2023 Anemia 05/21/2022 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 Medical Group Cardiology at [address] [place] [address] Hussain Rollins MD Coronary artery disease of shosh[place]paiute artery of shoshone-paiute heart with stable angina pectoris (Primary Dx); Hyperlipidemia associated with type 2 diabetes mellitus (HCC); Hypertension associated with diabetes (HCC); Severe obesity (HCC); Body mass index 40.0-44.9, adult (CMS/HCC) (HCC); Coronary artery disease involving shoshone-paiute coronary artery of shoshone-paiute heart without angina pectoris 12/21/[address] 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, unspecified vessel or lesion type, unspecified whether shoshone-paiute or transplanted heart Chronic pain disorder Brain [...] on file Legal Sex Female 3:26 AM EXTENDED DAY TEACHER Gender Identity Female 05/22/2019 11:23 AM CDT Sexual Orientation Straight 10/24/2021 7: 58 AM EXTENDED DAY TEACHER Obstetrics History Last Filed Vital Signs Vital Sign Reading Time Taken Comments Blood Pressure 136/86 03/01/2025 10:53 AM CDT Pulse 100 03/01/2025 10:53 AM CDT Temperature 36.6 C (97.9 F) 11/02/2024 6:30 PM EXTENDED DAY TEACHER Respiratory Rate 24 11/02/2024 6:30 PM EXTENDED DAY TEACHER Oxygen Saturation 94% 03/01/2025 10:53 AM CDT [...] 12/09/2013, 12/06/2012 Medical Devices Implanted Type Area Wine Pasteurizer Device Identifier Shelf Expiration Date Model / Serial / Lot [employer] Inc Resolute Efren 4mm 2.1-2.7fr 18mm 140cm Rapid Exchange Radiopaque [id number] - [id number] Implanted:Qty: 1 on 04/27/2022 by Logan Ceron MD at [facility] [employer] Inc 01/06/2025 [id number] / / [id number] Med[employer] Inc Resolute [place] 4mm 2.1-2.7fr 18mm 140cm Rapid Exchange Radiopaque [id number] - [id number] Implanted:Qty: 1 on 04/27/2022 by Logan Ceron MD at [facility] [employer] 08/22/2024 [id number] / / [id number] [place] [employer] Angio-Seal Vip 6fr Closere Device [id number] - [id number] Implanted:Qty: 1 on 04/27/2022 by Logan Ceron MD at [facility] [employer] 02/10/2023 [id number] / / [id number] Procedures Procedure Name Priority Date/Time Associated Diagnosis Comments POCT LIPID PANEL Routine 11/21/2023 2:00 PM EXTENDED DAY TEACHER Coronary artery disease of shosh[place]-paiute artery of shoshone-paiute heart with stable angina pectoris Hyperlipidemia associated with type 2 diabetes mellitus (HCC) EGFR Routine 02/14/2017 1:23 AM CDT HEMOGLOBIN A1C STAT 01/29/2017 12:02 PM CDT from Last 3 Months or Most Recently Relevant to Health Maintenance Results * POCT lipid panel (11/21/2023 2:00 PM EXTENDED DAY TEACHER) Cholesterol, POC 104 mg/dL HDL, POC 31 mg/dL Triglycerides, POC 165 mg/dL LDL Cholesterol POC 41 mg/dL Chol/HDL Ratio, POC 3.4 Non-HDL Cholesterol, POC 74 mg/dL Cholesterol Total, POC 104 mg/dL Capillary blood 11/21/2023 2 :00 PM EXTENDED DAY TEACHER us Hussain Rollins MD POINT OF CARE TEST ORDERA BLES Edited Result - Final * eGFR (02/14/2017 1:23 AM CDT) eGFR 14 mL/min/1.7 3 m2 [facility] Comment: Interpretive Data Reference Interval Normal >/= 90 mL/min/1.73m2 Mildly decreased* 60 - 89 mL/min/1.73m2 Mildly to moderately decreased 45 - 59 mL/min/1.73m2 Moderately to severely decreased 30 - 44 mL/min/1.73m2 Severely decreased 15 - 29 mL/min/1.73m2 Kidney Failure < 15 mL/min/1.73m2 *Relative to young adult level If -Egyptian multiply value by 1.16. Estimated glomerular filtration [...] ORDERABLES Final Re sult Performing Organization Address City/[facility]/ZIP Co de Phone Number [facility] [address] Department [place], [place] [id number] * (ABNORMAL) Hemoglobin A1c (01/29/2017 12:02 PM CDT) Hgb A1C 11.2(H) 4.0 - 6.0 % [facility] Blood specimen (specimen) 01/29/2017 12:02 PM CDT 01/29/2017 1:45 PM CDT us Will Mcmahon MD LAB BLOOD ORDERABLES Final Re sult [facility] [address] Department [place] [employer] [place] [address] from Last 3 Months or Most Recently Relevant to Health Maintenance Insurance MEDICARE ADVANTAGE [place] [id number] [facility] MDCR HMO REF Member Subscriber Plan / Payer (Ef fective 2020-Present) Name:Jessika Falk Relation to Subscriber:Self Name:Jessika Falk Payer ID:[id number] (NAIC) Type:[facility] Address: [place] [id number] [place] [id number] [place] [id number] [facility] MEDICARE ADVANTAGE [place] [id number] Care Teams Validation Specialist Relationship Specialty Start Date End Date James Candelaria DO [address] [place] [address] PCP - General Family Medicine 01/28/24
--- OUTSIDE RECORDS SUMMARY | 2025-03-21 19:10 | XMS_ITS | Referral Summary ---
Author Organization [facility] Address [address] [place] [address] Care Team Providers Care Pressure Dispatcher Name Role Phone James Candelaria Primary Care Provider Encounters Date Type Department Care Team Description 03/01/2025 11:15 AM CDT Office Visit [facility] Medical [facility] Cardiology at [address] [place] [address] Hussain Rollins MD Coronary artery disease of [place] artery of [place] heart with stable angina pectoris (Primary Dx); Hyperlipidemia associated with type 2 diabetes mellitus (HCC); Hypertension associated with diabetes (HCC); Severe obesity (HCC); Body mass index 40.0-44.9, adult (CMS/HCC) (HCC); Coronary artery disease involving [place] coronary artery of [place] heart without angina pectoris 12/21/2024 Telephone [facility] Medical [facility] Cardiology [address] [place] [address] Hussain Rollins MD from Last 3 Months Allergies Active Allergy Reactions Criticality Noted Date Comments Adhesive Rash Medium Apricot Anaphylaxis,Rash High 04/23/2022 Other Rash Medium 04/23/2022 Clothing dye [place] Anaphylaxis,Rash High 04/23/2022 Prochlorperazine Anaphylaxis High Medications [...] enteric coated tabletIndication s:Coronary artery disease of [place] artery of [place] heart with stable angina pectoris Take 1 [...] 2 diabetes mellitus (HCC),Coronary artery disease involving [place] coronary artery of [place] heart without angina pectoris TAKE ONE TABLET BY MOUTH DAILY 90 tablet 3 11/30/19 25 Active metoprolol tartrate (LOPRESSOR) 25 mg immediate release tabletIndication s:Coronary artery disease of [place] artery of [place] heart with stable angina pectoris Take 1 tablet (25 mg total) by mouth 2 (two) times a day 60 tablet 03/01/20 25 026 Active nitroglycerin (Nitrostat) 0.4 mg SL tabletIndication s:Coronary artery disease involving [place] coronary artery of [place] heart without angina pectoris Place 1 tablet (0.4 mg total) under the tongue every 5 (five) minutes as needed for chest pain 25 tablet 3 03/01/20 25 026 Active nitroglycerin (Nitrostat) 0.4 mg SL tabletIndication s:Coronary artery disease involving [place] coronary artery of [place] heart without angina pectoris Place 1 tablet (0.4 mg total) under the tongue every 5 (five) minutes as needed for chest pain 25 tablet 3 05/04/20 24 025 Discontin ued(Reord er) metoprolol tartrate (LOPRESSOR) 25 mg immediate release tabletIndication s:Coronary artery disease involving [place] coronary artery of [place] heart without angina pectoris TAKE HALF A TABLET BY MOUTH TWICE A DAY 90 tablet 1 09/14/20 24 025 Discontin ued(Dupli quan order) Active Problems Problem Noted Date Diagnosed Date Severe obesity 03/01/2025 Syncope and collapse 11/21/2023 Anemia 05/21/2022 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, unspecified vessel or lesion type, unspecified whether [place] or transplanted heart 04/27/2022 Atypical chest pain 03/20/2022 Morbid (severe) obesity due to excess calories 0 03/20/2022 Body mass index 40.0-44.9, adult ([facility]) 03/20 Morbid obesity 09/12/2021 NIMA (obstructive sleep apnea) 09/12/2021 Systolic ejection murmur 06/19/2019 Coronary artery disease of n ative artery of [place] heart with stable angina pectoris 03/20/2017 Hyperlipidemia [...] on file Legal Sex Female 3:26 AM BARBER STYLIST Gender Identity Female 05/22/2019 11:23 AM CDT Sexual Orientation Straight 10/24/2021 7: 58 AM BARBER STYLIST Last Filed Vital Signs Vital Sign Reading Time Taken Comments Blood Pressure 136/86 03/01/2025 10:53 AM CDT Pulse 100 03/01/2025 10:53 AM CDT Temperature 36.6 C (97.9 F) 11/02/2024 6:30 PM BARBER STYLIST Respiratory Rate 24 11/02/2024 6:30 PM BARBER STYLIST Oxygen Saturation 94% 03/01/2025 10:53 AM CDT Inhaled Oxygen Concentration - - Weight 117 kg (258 lb) 03/01/2025 11:24 AM CDT Height 167.6 cm (5' 6) 03/01/2025 10:53 AM CDT Body Mass Index 41.64 03/01/2025 10:53 AM CDT Plan of Treatment Not on file Medical Devices Implanted Type Area Investment Fund Manager Device Identifier Shelf Expiration Date Model / Serial / Lot Medtronic Inc Resolute [place] 4mm 2.1-2.7fr 18mm 140cm Rapid Exchange Radiopaque [id number] - [id number] Implanted:Qty: 1 on 04/27/2022 by Logan Ceron MD at [facility] [employer] 01/06/2025 [id number] / / [id number] Med[employer]onic Inc Resolute Efren 4mm 2.1-2.7fr 18mm 140cm Rapid Exchange Radiopaque [id number] - [id number] Implanted:Qty: 1 on 04/27/2022 by Logan Ceron MD at [facility] [employer] 08/22/2024 [id number] / / [id number] [employer] Angio-Seal Vip 6fr Closere Device [id number] - [id number] Implanted:Qty: 1 on 04/27/2022 by Logan Ceron MD at [facility] [employer] 02/10/2023 [id number] / / [id number] Procedures Procedure Name Priority Date/Time Associated Diagnosis Comments POCT LIPID PANEL Routine 11/21/2023 2:00 PM BARBER STYLIST Coronary artery disease of [place] artery of [place] heart with stable angina pectoris Hyperlipidemia associated with type 2 diabetes mellitus (HCC) EGFR Routine 02/14/2017 1:23 AM CDT HEMOGLOBIN A1C STAT 01/29/2017 12:02 PM CDT from Last 3 Months or Most Recently Relevant to Health Maintenance Results * POCT lipid panel (11/21/2023 2:00 PM BARBER STYLIST) Pathologist [facility] Cholesterol, POC 104 mg/dL HDL, POC 31 mg/dL Triglycerides, POC 165 mg/dL LDL Cholesterol POC 41 mg/dL Chol/HDL Ratio, POC 3.4 Non-HDL Cholesterol, POC 74 mg/dL Cholesterol Total, POC 104 mg/dL Capillary blood 11/21/2023 2 :00 PM BARBER STYLIST us Hussain Rollins MD POINT OF CARE TEST ORDERA BLES Edited Result - Final * eGFR (02/14/2017 1:23 AM CDT) Pathologist [facility] eGFR 14 mL/min/1.7 3 m2 [facility] Comment: Interpretive Data Reference Interval Normal >/= 90 mL/min/1.73m2 Mildly decreased* 60 - 89 mL/min/1.73m2 Mildly to moderately decreased 45 - 59 mL/min/1.73m2 Moderately to severely decreased 30 - 44 mL/min/1.73m2 Severely decreased 15 - 29 mL/min/1.73m2 Kidney Failure < 15 mL/min/1.73m2 *Relative to young adult level If -[place] multiply value by 1.16. Estimated glomerular filtration [...] ORDERABLES Final Re sult Performing Organization Address City/[facility]/ZIP Co de Phone Number [facility] [address] Department [place], [place] [id number] * (ABNORMAL) Hemoglobin A1c (01/29/2017 12:02 PM CDT) Hgb A1C 11.2(H) 4.0 - 6.0 % [facility] Blood specimen (specimen) 01/29/2017 12:02 PM CDT 01/29/2017 1:45 PM CDT Will Mcmahon MD LAB BLOOD ORDERABLES Final Re sult [facility] [address] Department of [employer] [place], [place] [id number] from Last 3 Months or Most Recently Relevant to Health Maintenance Insurance [facility] MEDICARE ADVANTAGE [facility] MEDICARE Address: [address] [phone] [facility] MDCR HMO REF [facility] MEDICARE Address: [address] [phone] [facility] MEDICARE ADVANTAGE [facility] MEDICARE Address: [place] [id number] [place] [phone] Care Teams Pressure Dispatcher Relationship Specialty Start Date End Date James Candelaria DO [facility] [place] [address] PCP - General Family Medicine 01/28/24
--- OUTSIDE RECORDS SUMMARY | 2025-03-21 19:10 | XMS_ITS | Clinical Summary ---
Author Organization [facility] Address [address] [place] [address] Phone Care Team Providers Care Herbarium Worker Name Role Phone Lorena Anthony MD Primary Care Provider [phone] Allergies Active Allergy Reactions Criticality Noted Date [...] once 6 Active Blood Glucose Monitoring Suppl (ComAbilityTOUCH VERIO) w/Device kit 0 Active ONETOUCH VERIO [...] 20 MG tablet 1 Active TRUEplus Pen [place] 31G X 8 MM misc 2 Active [...] diabetic kidney complication 10/10/2014 Coronary arteriosclerosis in [place] artery 08/19 Overview (07/05/2019): Overview: CAD (coronary [...] exists Insurance [employer] MEDICARE Care Teams Herbarium Worker Relationship Specialty Start Date End Date Lorena Anthony MD [address] [facility] [address] [facility] [address] [place] [address] PCP - General Internal Medicine 04/27/20
--- OUTSIDE RECORDS SUMMARY | 2025-03-21 19:10 | XMS_ITS | Clinical Summary ---
Author Organization [facility] Address [address] [place] [address] Care Team Providers Care Auto Wash Buffer Name Role Phone Unavailable Primary Care Provider Unavailabl e Family History Medical History Relation Name Comments Breast Cancer Neg Hx Social History Tobacco Use Types Packs/Day Years Used Date Smoking Tobacco: Never Assessed Comments Unknown Sex and Gender Information Value Date Recorded Sex Assigned at Not on file Legal Sex Female 2:42 AM SURFACE MINER Gender Identity Not on file Sexual Orientation [...] CAD W BONITA Routine 12/09/2013 8:40 AM SURFACE MINER Other screening mammogram from Last 3 Months or Most Recently Relevant to Health Maintenance Results * GARY SCREENING BILATERAL DIGITAL W CAD W BONITA (12/09/2013 8:40 AM SURFACE MINER) Anatomical Region Laterality Modality breast Bilateral Mammography, Oth er 12/09/2013 8:40 AM SURFACE MINER Impressions 12/09/2013 11:35 AM SURFACE MINER IMPRESSION: No evidence of malignancy. ASSESSMENT: Right [...] IMAGING WORKUP WILL BE SCHEDULED BY [facility]. Narrative 12/09/2013 11:35 AM SURFACE MINER BILATERAL SCREENING MAMMOGRAM WITH TOMOSYNTHESIS TECHNIQUE: Bilateral [...] IMAGING WORKUP WILL BE SCHEDULED BY THE [facility]. us Zaid Arenas MD IMG MAMMO ORDERABLES Final R esult from Last 3 Months or Most Recently Relevant to Health Maintenance
--- OUTSIDE RECORDS SUMMARY | 2025-03-21 19:10 | XMS_ITS | Clinical Summary ---
Author Organization [facility] Address [address] [place] [address] Care Team Providers Care Offset Printing Operator Name Role Phone Unavailable Primary Care Provider Unavailabl e Source Comments [facility] [employer],non-owned Affiliates and Associated Physician Practices is amultiple site organization consisting of ambulatory clinics and hospital sitesin [place], [place], [place] and [place]. This disclosure is being madepursuant to the Care Everywhere program and may not contain all information available regarding this patient. Last updated 18.[facility] [employer] Active Problems Problem Noted Date Diagnosed Date Brain mass 11/13/2023 Social History Tobacco Use Types Packs/Day Years Used Date Smoking Tobacco: Never Assessed Comments Unknown Sex and Gender Information Value Date Recorded Sex Assigned at Not on file Legal Sex Female 11:32 AM PHARMACIST IN CHARGE Gender Identity Not on file Sexual Orientation [...]
--- NOTE | 2025-03-21 19:47 | ED.FEMALEGU ---
HPI - Female Genitourinary General Chief complaint: Urogenital-Female Stated complaint: r/o ovary torsion Time Seen by Provider: 03/21/25 19:02 History of Present Illness HPI Narrative: Patient is a 74-year-old female who presents to the emergency department this evening as a transfer from outside hospital for right lower quadrant abdominal pain. Patient had a CT abdomen and pelvis with contrast performed which revealed a large right ovarian cyst. She was sent here for a pelvic ultrasound to rule out ovarian torsion and OBGYN consultation. Patient states that she does have a history of a cyst in her right ovary which was small my years ago and states that nothing was done about it. States that she was administered medications at the outside hospital for pain and that her pain has significantly improved. She is resting comfortably at this time denying additional symptoms or concerns. Related Data Home Medications ?Medication ?Instructions ?Recorded ?Confirmed ?Last Taken ?Type pantoprazole 40 mg tablet,delayed 40 mg PO HS 01/07/20 12/15/24 04/09/22 History release atorvastatin 80 mg tablet 80 mg PO HS 08/24/20 12/15/24 04/09/22 History cholecalciferol (vitamin D3) 50 50 mcg PO HS 02/15/21 12/15/24 04/09/22 History mcg (2,000 unit) capsule aspirin 81 mg tablet,delayed 81 mg PO DAILY 12/13/23 12/15/24 Unknown History release (Adult Aspirin Regimen) clonidine HCl 0.1 mg tablet 0.1 mg PO DAILY 03/02/24 12/15/24 Unknown History metoprolol tartrate 25 mg tablet 25 mg PO BID 03/16/25 Unknown History clopidogrel 75 mg tablet 75 mg PO DAILY 03/21/25 Unknown History nitroglycerin 0.4 mg sublingual 0.4 mg sublingual Q5M 03/21/25 Unknown History tablet Allergies Allergy/AdvReac Type Severity Reaction Status Date / Time hydrocodone Allergy Severe rash Verified 03/21/25 18:07 adhesive tape Allergy Unknown rash Verified 03/21/25 18:07 cefdinir Allergy Unknown rash Verified 03/21/25 18:07 peach Allergy Unknown Anaphylactic Verified 03/21/25 18:07 Shock,throat closes,throat closes,Anaphylactic prochlorperazine Allergy Unknown Verified 03/21/25 18:07 adhesive AdvReac Intermediate TAPE= RASH Verified 03/21/25 18:07 DYE USED FOR CLOTHING Allergy Unknown SWELLING, Uncoded 03/21/25 18:07 INFECTION FROM DYE Review of Systems Review of Systems: All systems are reviewed and are negative unless stated otherwise in the HPI. [facility] Past Medical History Medical History Chronic obstructive pulmonary disease Per patient report she had PFTs done in [place] however if she saw the geology faculty member here who stated he did not see any signs and symptoms of COPD and that the patient refused to have a PFT or obstructive sleep studies performed. Insulin dependent type 2 diabetes mellitus Coronary artery disease Chronic kidney disease, stage 4 (severe) Cancer of left breast Status post lumpectomy and chemoradiation. Gastroesophageal reflux disease Morbid (severe) obesity due to excess calories Type 2 diabetes mellitus with diabetic chronic kidney disease Cholelithiasis Kidney stone Hypertension Arthritis Surgical History Surgical History History of wisdom tooth extraction History of heart artery stent History of bilateral cataract extraction History of lumpectomy of left breast History of extraction of renal calculus Family History Family History Mother Family history of diabetes mellitus in first degree relative Cancer CHF (congestive heart failure), NYHA class I Diabetes mellitus Family history of cardiovascular disease Family history of congestive heart failure Family history of hearing loss Family history of heart disease in male family member before age 55 Heart disease Family history of thyroid disease Thyroid disease Hypertension Father Cancer CHF (congestive heart failure), NYHA class I Family history of arthritis Family history of cardiovascular disease Family history of congestive heart failure Family history of hearing loss Family history of heart disease in male family member before age 55 Heart disease Family history of obesity Sibling CHF (congestive heart failure), NYHA class I Other Family history of malignant neoplasm Social History Social History Social History: 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ion maker: Epi Falk, adore. Code status: Full code. Smoking packs per day: 1 Smoking cigarettes per day: 20.0 Years smoked: 10 Smoking pack-years: 10.00 Smoking status: Former smoker Tobacco type: cigarettes Second hand tobacco smoke exposure: No Alcohol intake: never Alcohol use details: once a month Substance use: never Substance use type: does not use Do You Feel Safe in your Home?: Yes Lack of Transportation: No Lack of Food: Never True Current Housing: I Have Housing Concerned About Future Housing: No Difficulty Paying Gas/Electric Bills: No Difficulty Paying for Meds: No Currently Unemployed: No Education: Associate Degree Difficulty w/ Childcare or Family Care: No Living arrangements: with family Additional living arrangements comments: Lives in [place]. 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 Gender identity (if verbalized by the patient): Female Spiritual care concerns: No Exam Narrative: General: Alert, awake, afebrile, in no acute distress. HEENT: PERRL, no rhinorrhea, no post nasal drip, oropharynx clear. Neck: Trachea midline, no JVD, no lymphadenopathy. Cardiovascular: Regular rate and rhythm, no murmurs, rubs or gallops, no peripheral edema. Respiratory: Clear to auscultation bilaterally, no tachypnea, no wheezing, no rhonchi, no rubs, no respiratory distress. Abdomen: Soft, no tenderness to palpation specifically in the right lower quadrant, nondistended, no rebound, no guarding, no peritoneal signs. Musculoskeletal: No joint swelling or deformity, normal muscle tone. Skin: No rashes or petechia, no signs of infection. Psychiatric: Alert and oriented, normal behavior and judgment for situation. Neurological: Alert and oriented to person, place, and time. Follows all commands. No focal deficits, speech is clear and fluent. Course Vital Signs Vital signs: Vital Signs Temperature 97.6 F 03/21/25 17:49 Pulse Rate 82 03/21/25 17:49 Respiratory Rate 16 03/21/25 17:49 Blood Pressure 185/74 H 03/21/25 17:49 Pulse Oximetry 96 03/21/25 17:49 Temperature 97.6 F 03/21/25 17:49 Pulse Rate 82 03/21/25 17:49 Respiratory Rate 16 03/21/25 17:49 Blood Pressure 185/74 H 03/21/25 17:49 Pulse Oximetry 96 03/21/25 17:49 MDM - Female Genitourinary MDM Narrative Medical decision making narrative: The patient was evaluated by myself in the emergency department. History is obtained from patient who is an independent historian and physical exam was performed. External medical records were reviewed at this time. IV was established and pertinent tests were ordered. Laboratory results obtained at outside facility was reviewed by me revealing no acute process. Imaging studies obtained included pelvic ultrasound which was independently interpreted by me revealin.5 cm right adnexal/upper pelvic cyst. There is either a smaller 12 mm adjacent cyst or a lobular extension of the larger cyst, probably associated with ovarian tissue. Prior recommendation for pelvic MRI and gynecology consultation is unchanged. Endometrial thickening. Recommend referral for endometrial sampling. Bilateral ovaries not confidently visualized. Differential diagnosis considerations include ovarian torsion, ovarian mass/cyst, malignancy. Comorbidities impacting this visit include history of right ovarian cyst. At this time, the on-call OBGYN Dr. Chowdary was contacted and case was discussed with her at 195. She does recommend outpatient follow-up as patient will need additional blood work including tumor markers. This was discussed with the patient at bedside who is in agreement. Patient is resting comfortably does not appear to be in any distress. Denies any pain. I have evaluated and discussed social determinants of health with the patient that could potentially impact subsequent diagnosis and treatment plans. On repeat assessment of the patient, reevaluation revealed that the patient is doing well and is in no acute distress. Patient symptoms have improved since she arrived to our emergency department. Repeat vital signs were all reviewed and noted to be stable. Differential diagnosis and treatment plan were discussed with the patient at bedside. Patient agrees with discussion and after shared 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ion making agrees with discharge. All questions were answered to the patient's satisfaction. Patient will follow up with OBGYN with Dr. Chowdary in 3-5 days. Patient was provided with strict return precautions and instructed to return to the emergency department if any new or worsening symptoms develop. The patient was discharged in stable condition. Discharge Plan Discharge Clinical Impression: Cyst, ovarian, Abdominal pain, RLQ Patient Disposition: Home Condition: Improved Instructions: Antibiotic Form, Ovarian Cyst (ED) Additional Instructions: Please follow-up with the OBGYN you were provided with today, Dr. Chowdary. Call tomorrow to set up a follow-up appointment regarding a right ovarian cyst as he will need additional blood work including tumor markers to rule out cancer. Return to the emergency department if any new or worsening symptoms develop. Patient Language: Korean Prescriptions: No Action clopidogrel 75 mg tablet 75 mg PO DAILY nitroglycerin 0.4 mg tablet, sublingual 0.4 mg sublingual Q5M clonidine HCl 0.1 mg tablet 0.1 mg PO DAILY pantoprazole 40 mg tablet,delayed release (DR/EC) 40 mg PO HS atorvastatin 80 mg tablet 80 mg PO HS cholecalciferol (vitamin D3) 50 mcg (2,000 unit) capsule 50 mcg PO HS metoprolol tartrate 25 mg tablet 25 mg PO BID aspirin [Adult Aspirin Regimen] 81 mg tablet,delayed release (DR/EC) 81 mg PO DAILY (DME) lancets [Accu-Chek Softclix Lancets] Misc See Rx Instructions .Route Qty: 100 0RF Rx Instructions: use to check blood sugar three times per day (DME) pen needle, diabetic [TRUEplus Pen Needle] 31 gauge x 5/16 needle See Rx Instructions .ROUTE .COMPLEX Qty: 300 0RF Dose Instruction: USE TO CHECK BLOOD GLUCOSE 3 TIMES DAILY Rx Instructions: USE TO CHECK BLOOD GLUCOSE 3 TIMES DAILY (DME) lancets [OneTouch Delica Plus Lancet] 33 gauge misc See Rx Instructions .Route Qty: 300 0RF Rx Instructions: As directed 3 times a day (DME) OneTouch Verio test strips Strip See Rx Instructions .ROUTE .MEDSUPPLY Qty: 300 3RF Rx Instructions: use to check BS 4 times daily(E11.653 furosemide 20 mg tablet See Rx Instructions .ROUTE .COMPLEX Qty: 180 3RF Dose Instruction: TAKE TWO TABLETS BY MOUTH EVERY MORNING Rx Instructions: TAKE TWO TABLETS BY MOUTH EVERY MORNING calcitriol 0.25 mcg capsule 0.25 mcg PO 3XW Qty: 12 6RF Rx Instructions: administer/take on Mondays, Wednesdays, and Fridays Humulin R U-500 (Conc) Kwikpen 500 unit/mL (3 mL) insulin pen See Rx Instructions .ROUTE .COMPLEX Qty: 12 1RF Dose Instruction: INJECT 90 UNITS SUBCUTANEOUSLY WITH BREAKFAST, 50 UNITS WITH LUNCH, AND 80 UNITS WITH SUPPER DAILY Rx Instructions: INJECT 100 UNITS SUBCUTANEOUSLY WITH BREAKFAST, 60 UNITS WITH LUNCH, AND 85 UNITS WITH SUPPER DAILY Follow-up/Referrals: James Candelaria DO [Primary Care Provider] - Pretty Chowdary MD [Physician] - 3 Days Time of Disposition: 20:09
== END 2025-03-21 20:28 | disposition home or self-care (01) ==
PROVIDERS: Emergency Provider Emergency Medicine; PCP Family Medicine
DX: N83.201 Unspecified ovarian cyst, right side (principal); Z79.4 Long term (current) use of insulin; I25.10 Atherosclerotic heart disease of native coronary artery without angina pectoris; N18.4 Chronic kidney disease, stage 4 (severe); E11.22 Type 2 diabetes mellitus with diabetic chronic kidney disease; K21.9 Gastro-esophageal reflux disease without esophagitis; Z85.3 Personal history of malignant neoplasm of breast; I10 Essential (primary) hypertension; Z87.891 Personal history of nicotine dependence; E66.01 Morbid (severe) obesity due to excess calories; Z68.41 Body mass index [BMI] 40.0-44.9, adult
CPT/HCPCS: 76856; 99284

== ENCOUNTER 2025-04-10 10:24 | Outpatient (CLI) | payer MEDICARE, SELFPAY ==
[2025-04-10 11:16] LABS: Creatinine Urine 104.8 mg/dL
[2025-04-10 11:26] LABS: Albumin Level 4.1 g/dL (3.5-5.1); Anion Gap 11 mmol/L (4-12); Blood Urea Nitrogen 39 mg/dL (7-17); Calcium 9.4 mg/dL (8.4-10.2); Carbon Dioxide 27 mmol/L (22-30); Chloride 105 mmol/L (98-107); Estimated Glomerular Filt Rate 19; Glucose 179 mg/dL (65-110); Phosphorus 3.6 mg/dL (2.5-4.5); Potassium 3.6 mmol/L (3.4-5.0); Sodium 143 mmol/L (137-145)
[2025-04-10 11:35] LABS: Parathyroid Intact 117.9 pg/mL (14.5-75.2)
[2025-04-10 11:41] LABS: Vitamin D 25 Hydroxy 33.3 ng/mL
[2025-04-10 11:50] LABS: Total Protein Urine Random 341 mg/dL; Ur Ttl Prot Creatinine Ratio 3.25 mg/mg (0-0.20)
[2025-04-13 02:38] LABS: CA-125. 18 U/mL (<35)
== END 2025-04-10 10:25 | disposition home or self-care (01) ==
PROVIDERS: PCP Family Medicine; Referring Provider Internal Medicine Nephrology; Visit Provider Student in an Organized Health Care Education/Training Program
DX: N94.89 Other specified conditions associated with female genital organs and menstrual cycle (principal); R80.8 Other proteinuria; I12.9 Hypertensive chronic kidney disease with stage 1 through stage 4 chronic kidney disease, or unspecified chronic kidney disease; E11.22 Type 2 diabetes mellitus with diabetic chronic kidney disease; N18.9 Chronic kidney disease, unspecified; N25.81 Secondary hyperparathyroidism of renal origin; E55.9 Vitamin D deficiency, unspecified
CPT/HCPCS: 36415; 80069; 82306; 82570; 83970; 84156; 86304

== ENCOUNTER 2025-06-07 12:12 | Outpatient (CLI) | payer MEDICARE, SELFPAY ==
--- OUTSIDE RECORDS SUMMARY | 2025-03-11 06:30 | XMS_ITS ---
Author Organization [facility] Address [address] [place], [place] [address] Care Team Providers Care Jtac Name Role Phone BOUBACAR SPENCER Unavailable [phone] James Candelaria Unavailable Unavailable Allergies Allergen (clinical drug ingredient) Drug/Non Drug Allergy documented on EMR Reaction Allergy Type Onset Date Status Tape Unknown Allergy Active REASON FOR VISIT *General care Medications Medication SIG (Take, Route, Frequency, Duration) Notes Start Date End Date Status Brilinta 90 MG Oral; Duration: 30 Days Active Nitroglycerin 0.4 MG Sublingual; Duratio n: 8 Days Active Calcitriol 0.25 MCG Oral; Duration: 28 Days Active Metoprolol Tartrate 25 MG Oral; Duration: 90 Days Active Potassium Citrate ER 10 MEQ (1080 MG) Oral; Duration: 30 Days Acti ve OneTouch Verio - In Vitro; Duration: 100 Days Active Furosemide 20 MG Oral; Duration: 30 Days Active Icosapent Ethyl 1 GM Oral; Duration: 30 Days Active TRUEplus 5-Bevel Pen [place] 31G X 8 MM ; Duration: 33 Days Active HumuLIN R U-500 KwikPen 500 UNIT/ML Subcutaneous; Duration: 24 Days Active Atorvastatin Calcium 80 MG Oral; Duration: 90 Days Active Pantoprazole Sodium 40 MG Oral; Duration: 30 Days Active Vital Signs Height 66.00 in 03/11/2025 Weight 250 lbs 03/11/2025 BMI 40.35 kg/m2 03/11/2025 Height-cm 167.64 cm 03/11/2025 Weight-kg 113.4 kg 03/11/2025 Encounters Encounter Location Date Provider Diagnosis [address] [id number] 03/11/2025 BOUBACAR SPENCER Tinea unguium B35.1 ; Pain in right toe(s) M79.674 ; Pain in left toe(s) M79.675 ; Atherosclerosis of [place] arteries of extremities with intermittent claudication, bilateral [...] toe(s) (ICD-10 - M79.675) 03/11/2025 Atherosclerosis of [place] arteries of extremities with intermittent claudication, bilateral [...] sooner if problems develop. Provider Name:BOUBACAR CHRISTIANSON, 07/15/2025 10:30:00 AM, [address] [place] [address], [id number], Progress Notes * ORQUIDEA JARVISOB: [birth year] (74 yo F)Acc No.[id number]:03/11/2025 Patient: LIZZY ESPINOSA Provider: Rosetta SPENCER :1950 A ge:74 Y S ex:Female Date:03/11/2025 Address:[address] [place] [address] Subjective: * Chief Complaints: * 1 . [...] confusion, dizziness, difficulty speaking. * Medical History: M edical History Verified. * Family History: F ather: PRN [...] injector Subcutaneous , Taking TRUEplus 5-Bevel Pen [place] 31G X 8 MM Miscellaneous , Taking Potassium Citrate ER 10 MEQ (1080 MG) Tablet Extended Release Oral , Taking Metoprolol Tartrate 25 MG Tablet Oral , Taking Nitroglycerin 0.4 MG Tablet Sublingual Sublingual , Taking Brilinta 90 MG Tablet Oral , Medication List reviewed and reconciled with the patient * Allergies: T ape. Objective: * Vitals: W t: 250 lbs, [...] - M79.675 4 . A therosclerosis of [place] arteries of extremities with intermittent claudication, bilateral [...] develop.) * Billing Information: * Visit Code: * Procedure Codes: 54357 DEBRIDE NAIL, 6 OR MORE. Modifiers: Q8 * Electronic signature of ALLI SPENCER DPM on 06/07/2025 at 12:27 PM CDT Sign off status: Pending * Provider: Rosetta SPENCER Date: 0 03/11/2025 Generated for Rianna rich/Gilberto/AnaM aria on: 0 06/07/2025 12:27 PM CDT History and Physical Notes * HPI [...]
--- OUTSIDE RECORDS SUMMARY | 2025-05-13 06:20 | XMS_ITS ---
Author Organization [facility] Address [address] [place], [place] [address] Care Team Providers Care Pierce And Shave Press Operator Name Role Phone BOUBACAR SPENCER Unavailable [phone] James Candelaria Unavailable Unavailable Allergies Allergen (clinical drug ingredient) Drug/Non Drug Allergy documented on EMR Reaction Allergy Type Onset Date Status Tape Unknown Allergy Active REASON FOR VISIT *General care Medications Medication SIG (Take, Route, Frequency, Duration) Notes Start Date End Date Status Potassium Citrate ER 10 MEQ (1080 MG) Oral; Duration: 30 Days Acti ve TRUEplus 5-Bevel Pen [place] 31G X 8 MM ; Duration: 33 Days Active Metoprolol Tartrate 25 MG Oral; Duration: 90 Days Active Brilinta 90 MG Oral; Duration: 30 Days Active Nitroglycerin 0.4 MG Sublingual; Duratio n: 8 Days Active Pantoprazole Sodium 40 MG Oral; Duration: 30 Days Active Icosapent Ethyl 1 GM Oral; Duration: 30 Days Active OneTouch Verio - In Vitro; Duration: 100 Days Active HumuLIN R U-500 KwikPen 500 UNIT/ML Subcutaneous; Duration: 24 Days Active Furosemide 20 MG Oral; Duration: 30 Days Active Atorvastatin Calcium 80 MG Oral; Duration: 90 Days Active Calcitriol 0.25 MCG Oral; Duration: 28 Days Active Vital Signs Height 66.00 in 05/13/2025 Weight 250 lbs 05/13/2025 BMI 40.35 kg/m2 05/13/2025 Height-cm 167.64 cm 05/13/2025 Weight-kg 113.4 kg 05/13/2025 Encounters Encounter Location Date Provider Diagnosis [address] [id number] 05/13/2025 BOUBACAR SPENCER Tinea unguium B35.1 ; Pain in right toe(s) M79.674 ; Pain in left toe(s) M79.675 ; Atherosclerosis of [place] arteries of extremities with intermittent claudication, bilateral [...] toe(s) (ICD-10 - M79.675) 05/13/2025 Atherosclerosis of [place] arteries of extremities with intermittent claudication, bilateral [...] debris and necrotic tissue removed Atherosclerosis of [place] ar teries of extremities with intermittent claudication, [...] develop. Provider Name:BOUBACAR CHRISTIANSON, 07/15/2025 10:30:00 AM, [address] [place] [address], [id number], Progress Notes * SIMONAORQUIDEAOB: [birth year] (74 yo F)Acc No.[id number]:05/13/2025 Patient: LIZZY ESPINOSA Provider: Rosetta SPENCER :1950 A ge:74 Y S ex:Female Date:05/13/2025 Address:[address] [place] [address] Subjective: * Chief Complaints: * 1 . [...] confusion, dizziness, difficulty speaking. * Medical History: N o Reported Medical History. * Surgical History: D enies Past Surgical History. * Hospitalization/Major Diagno stic Procedure: D enies Past Hospitalization. * Family History: F ather: PRN - [...] injector Subcutaneous , Taking TRUEplus 5-Bevel Pen [place] 31G X 8 MM Miscellaneous , Taking [...] - M79.675 4 . A therosclerosis of [place] arteries of extremities with intermittent claudication, bilateral legs - I70.213 5 . T ype 2 diabetes mellitus with other circulatory complications - E11.59 6 .?Acquired keratoderma - L85.1 Plan: * Treatment: 2. A therosclerosis of [place] arteries of extremities with intermittent claudication, bilateral [...] SKIN LESIONS, 2 TO 4, Modifiers: Q8 , 92045 DEBRIDE NAIL, 6 OR MORE, Modifiers: 59 , Q8 * Follow Up: 1 0 - 12 weeks (Reason: At-Risk Foot care, sooner if problems develop.) * Billing Information: * Visit Code: * Procedure Codes: 36219 TRIM SKIN LESIONS, 2 TO 4. Modifiers: Q8 00470 DEBRIDE NAIL, 6 OR MORE. Modifiers: 59, Q8 * Electronic signature of ALLI SPENCER DPM on 06/07/2025 at 12:27 PM CDT Sign off status: Pending * Provider: Rosetta SPENCER Date: 0 05/13/2025 Generated for Rianna rich/Gilberto/Ana Maria on: 0 06/07/2025 12:27 PM CDT History [...]
--- NOTE | ~2025-06-07 | US_ITS ---
EXAMINATION: US pelvic complete INDICATION: Ovarian mass Comparison:Ultrasound dated 03/21/2025 TECHNIQUE: Multiple transabdominal and endovaginal sonographic images of the pelvis performed. FINDINGS: The uterus measures 8.6 x 5.2 x 3 cm. The endometrial complex is not well delineated for measurement. The right ovary measures 3 x 2.5 x 1.2 cm and the left ovary is not visualized. In the right adnexa there is a simple cyst measuring 6 x 5.3 x 4.7 cm which appears to be adjacent to the ovary. A cyst is diminished in size compared with 03/21/2025 There is no free fluid in the pelvis. There are no abnormal masses seen on either side. IMPRESSION: 1. Simple cyst right adnexa. Differential diagnosis includes paraovarian cyst, peritoneal inclusion cyst, hydrosalpinx as well as benign and malignant neoplasm such as serous cystadenoma/cystadenocarcinoma and mucinous cystadenoma. Recommend further evaluation with CA 125 levels and gynecological consultation. Reviewed, dictated and finalized at location O. IMPRESSION: 1. Simple cyst right adnexa. Differential diagnosis includes paraovarian cyst, peritoneal inclusion cyst, hydrosalpinx as well as benign and malignant neoplas m such as serous cystadenoma/cystadenocarcinoma and mucinous cystadenoma. Recom mend further evaluation with CA 125 levels and gynecological consultation.
--- OUTSIDE RECORDS SUMMARY | 2025-06-07 12:27 | XMS_ITS | Clinical Summary ---
Author Organization [facility] Address [address] [place] [address] Care Team Providers Care Sports Broadcasting Internship Name Role Phone Unavailable Primary Care Provider Unavailabl e Family History Medical History Relation Name Comments Breast Cancer Neg Hx Social History Tobacco Use Types Packs/Day Years Used Date Smoking Tobacco: Never Assessed Comments Unknown Sex and Gender Information Value Date Recorded Sex Assigned at Not on file Legal Sex Female 2:42 AM CODING MANAGER Gender Identity Not on file Sexual [...] SARS-COV-2 Immunization ( season) 2024 Influenza Immunization (#1) 2025 Hepatitis B Immunization Aged Out No [...] CAD W BONITA Routine 12/09/2013 8:40 AM CODING MANAGER Other screening mammogram from Last 3 Months or Most Recently Relevant to Health Maintenance Results * GARY SCREENING BILATERAL DIGITAL W CAD W BONITA (12/09/2013 8:40 AM CODING MANAGER) Anatomical Region Laterality Modality breast Bilateral Mammography, Oth er 12/09/2013 8:40 AM CODING MANAGER Impressions 12/09/2013 11:35 AM CODING MANAGER IMPRESSION: No evidence of malignancy. ASSESSMENT: Right [...] IMAGING WORKUP WILL BE SCHEDULED BY THE [facility]. Narrative 12/09/2013 11:35 AM CODING MANAGER BILATERAL SCREENING MAMMOGRAM WITH TOMOSYNTHESIS TECHNIQUE: Bilateral [...] IMAGING WORKUP WILL BE SCHEDULED BY THE [facility]. us Zaid Arenas MD IMG MAMMO ORDERABLES Final R esult from Last 3 Months or Most Recently Relevant to Health Maintenance
--- OUTSIDE RECORDS SUMMARY | 2025-06-07 12:27 | XMS_ITS | Clinical Summary ---
Author Organization [facility] Address [address] [place] [address] Care Team Providers Care Creative Writing English Professor Name Role Phone Unavailable Primary Care Provider Unavailabl e Source Comments [facility],non-owned Affiliates and Associated Physician Practices is amultiple site organization consisting of ambulatory clinics and hospital sitesin [place], [place] and [place]. This disclosure is being madepursuant to the Care Everywhere program and may not contain all information available regarding this patient. Last updated 18.[facility] Active Problems Problem Noted Date Diagnosed Date Brain mass 11/13/2023 Social History Tobacco Use Types Packs/Day Years Used Date Smoking Tobacco: Never Assessed Comments Unknown Sex and Gender Information Value Date Recorded Sex Assigned at Not on file Legal Sex Female 11:32 AM ENVIRONMENTAL REMEDIATION ENGINEER Gender Identity Not on file Sexual Orientation [...] MEDICARE AWV CALENDAR YEAR 2024 INFLUENZA VACCINE (#1) 2025 , 07/14/2019, 08/24/2015, Additional history exists HEPATITIS B [...]
--- OUTSIDE RECORDS SUMMARY | 2025-06-07 12:27 | XMS_ITS ---
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, unspecified vessel or lesion type, unspecified whether [place] or transplanted heart 04/27/2022 Atypical chest pain 03/20/2022 Morbid (severe) obesity due to excess calories 0 03/20/2022 Body mass index 40.0-44.9, adult ([facility]) 03/20 Morbid obesity 09/12/2021 NIMA (obstructive sleep apnea) 09/12/2021 Proteinuria 07/05/2019 Systolic ejection murmur 06/19/2019 Calculus of kidney 05/29/2017 Coronary artery disease of n ative artery of [place] heart with stable angina pectoris 03/20/2017 Hyperlipidemia associated with type 2 diabetes m lesli 03/20/2017 Hypertensive chronic kidney disease with stage 1 through stage 4 chronic kidney disease, or unspecified chronic kidney disease 08/23/2015 Type 2 diabetes mellitus wit h other diabetic kidney complication 10/10/2014 Atherosclerosis of coronary artery 08/19/2014 Overview (01/18/2017): CAD (coronary atherosclerotic disease) Hypertension associated with diabetes 08/19/2014 Overview (01/18/2017): Hypertension Diabetes mellitus 08/19/2014 Overview (01/18/2017): Diabetes Hyperlipidemia LDL goal <70 08/19/2014 Overview (01/18/2017): Hyperlipidemia Adiposity 08/19/2014 Overview (01/18/2017): Obesity Gastroesophageal reflux disease 08/19/2014 Overview (01/18/2017): GERD (gastroesophageal reflux disease) Hematuria 04/24/2014 Acute NC, inferior wall 04/20/2014 ST elevation myocardial infarction (STEMI) of in ferior wall 04/20/2014 H/O pelvic mass 01/05/2014 Overview (04/26/2025): Last Assessment & Plan: SEE ALSO SCANNED DOCUMENT OF NOTES FROM VISIT THAT REFLECT THE COUNSELING AND TIME SPENT. 1. Complete History and Physical obtained as noted per above. 2. Working Dx: There was no mass noted today when we performed a pelvic exam. The patient has never had a complaint at the vaginal area nor the perineum. There was a mass noted by her primary nuclear unit operator at the time of her annual gynecological exam. This mass was not noted today. The patient did have a cystocele that was a little bit more prominent on the right side anteriorly than on the left side however this was more of a midline structure. The patient was given education with respect to cystocele. She denied any postmenopausal bleeding or any specific problems. 3. Imaging ordered today for future visit: None 4. Laboratory Tests ordered today: None 5. Call our office and follow up sooner if problem persists or is worsened. 6 Indications requiring present to the Emergency Department We did review these signs and symptoms which included but we are not limited to the following: She was advised to present to the emergency room with lightheadedness, dizziness, severe headaches, fever, chills, shortness of breath, or chest pain. Additionally, she was advised present to the emergency room should she have heavy vaginal bleeding that requires the changing of greater than one menstrual pad per hour, or severe abdominal pain / cramping. 7. Follow up appointment (s): Patient was advised to follow up for annual gynecological exams. However, the patient is moving to [facility] to be closer to her son and grandchildren. 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 She states she likely will not be following up with this in the future. Pseudophakia 06/22/2011 Current Treatment and Therapy Plans No current plan information found. Past Treatment and Therapy Plans No past plan information found. Lifetime Dose Tracking * Chemical Lifetime Dose Automatic Entry Manual Entr y Fluoro Time 37 minutes 0 minutes 37 minutes Air kerma at the reference point (Ka,r) 2,898 mGy 0 mGy 2,898 mGy
--- OUTSIDE RECORDS SUMMARY | 2025-06-07 12:27 | XMS_ITS | Clinical Summary ---
Author Organization [facility] utiedgar Address [address] [place] [address] Phone Care Team Providers Care Rheumatology Nurse Name Role Phone Lorena Anthony MD Primary Care Provider [phone]- [phone] Allergies Active Allergy Reactions Criticality Noted Date [...] once 6 Active Blood Glucose Monitoring Suppl (The RoundsTOUCH VERIO) w/Device kit 0 Active ONETOUCH VERIO [...] 20 MG tablet 1 Active TRUEplus Pen [place] 31G X 8 MM misc 2 Active [...] diabetic kidney complication 10/10/2014 Coronary arteriosclerosis in [place] artery 08/19 Overview (07/05/2019): Overview: CAD (coronary [...] 2024 05/03/2021, 04/12/2021, 02/04/2021 Influenza Vaccine (#1) 2025 5, 10/20/2014, 08/21/2012, Additional history exists Insurance [employer] Care Teams Rheumatology Nurse Relationship Specialty Start Date End Date Lorena Anthony MD [address] [facility] [address] [facility] [address] [place] [address] PCP - General Internal Medicine 04/27/20
--- OUTSIDE RECORDS SUMMARY | 2025-06-07 12:27 | XMS_ITS | Patient Health Record ---
Author Organization [facility] Address [address] [place], [place] [id number] Care Team Providers Care Machine Sorter Name Role Phone BOUBACAR SPENCER Unavailable [phone] James Candelaria Unavailable Unavailable ARSLAN OSHEAIC Unavailable [phone] FARNAZ VASQUEZ Unavailable [phone] Allergies Allergen (clinical drug ingredient) Drug/Non Drug Allergy documented on EMR Reaction Allergy Type Onset Date Status Tape Unknown Allergy Active Reason For Referral No Information Medications Medication SIG (Take, Route, Frequency, Duration) Notes Start Date End Date Status Pantoprazole Sodium 40 MG Oral; Duration: 30 Days Active Atorvastatin Calcium 80 MG Oral; Duration: 90 Days Active Icosapent Ethyl 1 GM Oral; Duration: 30 Days Active OneTouch Verio - In Vitro; Duration: 100 Days Active HumuLIN R U-500 KwikPen 500 UNIT/ML Subcutaneous; Duration: 24 Days Active Furosemide 20 MG Oral; Duration: 30 Days Active Potassium Citrate ER 10 MEQ (1080 MG) Oral; Duration: 30 Days Acti ve TRUEplus 5-Bevel Pen [place] 31G X 8 MM ; Duration: 33 Days Active Metoprolol Tartrate 25 MG Oral; Duration: 90 Days Active Calcitriol 0.25 MCG Oral; Duration: 28 Days Active Brilinta 90 MG Oral; Duration: 30 Days Active Nitroglycerin 0.4 MG Sublingual; Duratio n: 8 Days Active Vital Signs Height-cm 167.64 cm 05/13/2025 Weight-kg 113.4 kg 05/13/2025 Height 66.00 in 05/13/2025 Weight 250 lbs 05/13/2025 BMI 40.35 kg/m2 05/13/2025 Encounters Encounter Location Date Provider Diagnosis [facility] [address] [place], [place] [id number] 10/01/2024 FARNAZ VASQUEZ Xerosis cutis L85.3 ; Tinea unguium B35.1 ; Unspecified atherosclerosis of [place] arteries of extremities, bilateral legs I70.203 ; Pain in right toe(s) M79.674 ; Pain in left toe(s) M79.675 ; Type 2 diabetes mellitus with diabetic peripheral angiopathy without gangrene E11.51 ; Acquired keratosis [keratoderma] palmaris et plantaris L85.1 ; Pain in right foot M79.671 and Pain in left foot M79.[address] [id number] 03/11/2025 BOUBACAR JOHANNA Tinea unguium B35.1 ; Pain in right toe(s) M79.674 ; Pain in left toe(s) M79.675 ; Atherosclerosis of [place] arteries of extremities with intermittent claudication, bilateral legs I70.213 and Type 2 diabetes mellitus with other circulatory complications E11.[address] [id number] 05/13/2025 BOUBACAR SPENCER Tinea unguium B35.1 ; Pain in right toe(s) M79.674 ; Pain in left toe(s) M79.675 ; Atherosclerosis of [place] arteries of extremities with intermittent claudication, bilateral legs I70.213 ; Type 2 diabetes mellitus with other circulatory complications E11.59 and Acquired keratoderma L85.1 [place] [place], [place] [id number] 07/23/2024 FARNAZ VASQUEZ Xerosis cutis L85.3 ; Tinea unguium B35.1 ; Unspecified atherosclerosis of [place] arteries of extremities, bilateral legs I70.203 ; Pain in right toe(s) M79.674 ; Pain in left toe(s) M79.675 ; Type 2 diabetes mellitus with diabetic peripheral angiopathy without gangrene E11.51 ; Acquired keratosis [keratoderma] palmaris et plantaris L85.1 ; Pain in right foot M79.671 and Pain in left foot M79.[address] [id number] 12/17/2024 NED OSHEA Tinea unguium B35.1 ; Pain in right toe(s) M79.674 ; Pain in left toe(s) M79.675 ; Atherosclerosis of [place] arteries of extremities with intermittent claudication, bilateral legs I70.213 and Type 2 diabetes mellitus with other circulatory complications E11.59 Assessments Encounter Date Diagnosis (ICD Code) Assessment Notes Treatment Notes Treatment Clinical Notes Section Notes 07/23/2024 Tinea unguium (ICD-10 - B35.1) Aseptic [...] subungual debris and necrotic tissue removed 05/13/2025 Tinea unguium (ICD-10 - B35.1) NAIL DEBRIDEMENT: Nails 1-5 Bilateral were debrided extensively with nail nippers and emery board, reducing length and girth to pink healthy tissue with any subungual debris and necrotic tissue removed 05/13/2025 Pain in right toe(s) (ICD-10 - M79.674) 05/13/2025 Pain in left toe(s) (ICD-10 - M79.675) 03/11/2025 Pain in right toe(s) (ICD-10 - M79.674) 12/17/2024 Pain in right toe(s) (ICD-10 - M79.674) 10/01/2024 Unspecified atherosclerosis of [place] arteries of extremities, bilateral legs (ICD-10 - I70.203) Patient educated on risks and aggravating factors of PVD, including conservative treatment options such as a diet and exercise regimen to aid in slowing progression of vascular disease 07/23/2024 Unspecified atherosclerosis of [place] arteries of extremities, bilateral legs (ICD-10 - [...] toe(s) (ICD-10 - M79.675) 05/13/2025 Atherosclerosis of [place] arteries of extremities with intermittent claudication, bilateral legs (ICD-10 - I70.213) Patient educated on risks and aggravating factors of PVD, including conservative treatment options such as a diet and exercise regimen to aid in slowing progression of vascular disease. Check and protect LE bilateral daily. Call if any changes or concerns. 03/11/2025 Atherosclerosis of [place] arteries of extremities with intermittent claudication, bilateral legs (ICD-10 - I70.213) 05/13/2025 Type 2 diabetes mellitus with other circulatory complications (ICD-10 - E11.59) Diabetic Foot Care: The patient was educated on diabetes and the lower extremity. The patient was instructed to check his feet daily to report any problems or signs of infection immediately. Check and protect LE bilateral daily. Call if any changes or concerns. 12/17/2024 Atherosclerosis of [place] arteries of extremities with intermittent claudication, bilateral [...] sharply debrided down to healthy appearing skin. 10/01/2024 Acquired keratosis [keratoderma] palmaris et plantaris [...] Treatment Next Appt Details Provider Name:BOUBACAR CHRISTIANSON, 07/15/2025 10:30:00 AM, [address] [place] [address], [phone], Insurance Providers Payer Name Payer Address Payer Phone Subscriber Number Group Number Insured Name Patient Relationship to Insured Coverage Start Date Coverage End Date [employer] MedicareCo mplete ([facility]) [address] [place], [place] [id number] LIZZY JARVIS Self - patient is the insured
--- OUTSIDE RECORDS SUMMARY | 2025-06-07 12:27 | XMS_ITS | Clinical Summary ---
Author Organization [facility] Address [address] [place] [address] Phone Care Team Providers Care Flute Polisher Name Role Phone Lorena Anthony MD Primary Care Provider [phone]- [phone] Allergies Active Allergy Reactions Criticality Noted Date Comments Adhesive Unknown Medium 11/14/2023 Cefdinir Unknown 11/14/2023 Hydrocodone Unknown 11/14/2023 [place] Anaphylaxis High 11/16/2023 Prochlorperazine Unknown 11/14/2023 Medications [...] 11/14/2023 History of COVID-19 11/14/2023 Atherosclerosis of [place] co ronary artery of [place] heart without angina pectoris 11/14/2023 S/P CABG (coronary artery bypass graft) 02/01/20 24 Type 2 diabetes mellitus wit hout complication, with long-term current use of insulin 11/14/2023 Primary hypertension 11/14/2023 CKD (chronic kidney disease) stage 4, GFR 15-29 ml/min 11/14/2023 Meningioma 11/14/2023 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 Encounters Date Type Department Care Team Description 06/02/2025 External Device Data [facility] ABSTRACTION Provider, Abstract 06/01/2025 External Device Data [facility] ABSTRACTION Provider, Abstract 04/28/2025 External Device Data [facility] ABSTRACTION Provider, Abstract 04/28/2025 External Device Data [facility] ABSTRACTION Provider, Abstract 03/30/2025 External Device Data [facility] ABSTRACTION Provider, Abstract [...] on file Legal Sex Female 7:46 PM DIVER HELPER Gender Identity Not on file Sexual Orientation Not on file Last Filed Vital Signs Vital Sign Reading Time Taken Comments Blood Pressure 153/60 11/16/2023 7:23 AM DIVER HELPER Pulse 66 11/16/2023 7:23 AM DIVER HELPER Temperature 36.7 C (98.1 F) 11/16/2023 8:07 AM DIVER HELPER Respiratory Rate 21 11/16/2023 7:23 AM DIVER HELPER Oxygen Saturation 96% 11/16/2023 7:23 AM DIVER HELPER Inhaled Oxygen Concentration - - Weight 104.6 kg (230 lb 11.2 oz) 11/14/2023 2:26 AM DIVER HELPER Height 167.6 cm (5' 6) 11/14/2023 2:26 AM DIVER HELPER Body Mass Index 37.24 11/14/2023 2:26 AM DIVER HELPER Plan of Treatment Health Maintenance Due Date [...] ) (1 - 1-dose 75+ series) 2023 COVID-19 Vaccine (3 - 2023-2 5 season) 2024 05/03/2021, 04/12/2021 INFLUENZA VACCINE (#1) 2025 , 07/14/2019, 08/24/2015, Additional history exists Insurance [facility] [address] [facility] COM[facility] [id number] Advance Directives For more information, please contact: [phone] * Full Code (Latest Code Status on File) Date Activated Date Inactivated Comments 11/14/2023 5:11 AM 11/16/2023 3:51 PM Care Teams Flute Polisher Relationship Specialty Start Date End Date Lorena Anthony MD [address] [facility] [address] [place] [id number] PCP - General Family Practice 11/14/23
--- OUTSIDE RECORDS SUMMARY | 2025-06-07 12:27 | XMS_ITS | Clinical Summary ---
Author Organization [facility] Address [address] [place] [address] Care Team Providers Care Granular Operator Name Role Phone James Candelariah Primary Care Provider Allergies Active Allergy Reactions Criticality Noted Date Comments Adhesive Rash Medium Apricot Anaphylaxis,Rash High 04/23/2022 Other Rash Medium 04/23/2022 Clothing dye Dukes Anaphylaxis,Rash High 04/23/2022 Prochlorperazine Anaphylaxis High Medications cholecalciferol (VITAMIN D3) 400 unit capsule take 1 by Oral route once 0 0 02/17/20 16 Active TRUEplus Pen Needle 31 gauge x 5/16 needle 09/23/20 21 Active calcitRIOL (ROCALTROL) 0.25 mcg capsule 1 capsule (0.25 mcg total) as directed M-W-F take in the AM 12/27/19 22 Active furosemide (LASIX) 20 mg tablet Take 2 tablets (40 mg total) by mouth daily 12/19/19 23 Active aspirin 81 mg enteric coated tabletIndications: Coronary artery disease of [place] artery of [place] heart with stable angina pectoris Take 1 [...] Active Additional Information Patient not taking.Reported on 05/28/2025 cloNIDine (CATAPRES) 0.1 mg tablet TAKE ONE TABLET BY MOUTH TWICE A DAY 180 tablet 11/30/19 25 Active atorvastatin (LIPITOR) 80 mg tabletIndications: Hyperlipidemia associated with type 2 diabetes mellitus (HCC),Coronary artery disease involving [place] coronary artery of [place] heart without angina pectoris TAKE ONE TABLET BY MOUTH DAILY 90 tablet 11/30/19 25 Active nitroglycerin (Nitrostat) 0.4 mg SL tabletIndications: Coronary artery disease involving [place] coronary artery of [place] heart without angina pectoris Place 1 tablet (0.4 mg total) under the tongue every 5 (five) minutes as needed for chest pain 25 tablet 03/01/20 25 026 Active OneTouch Verio test strips strip 02/11/20 25 Active oxyCODONE (ROXICODONE) 5 mg immediate release tablet 03/24/20 25 Active HumuLIN R U-500 500 unit/mL (3 mL) CONCENTRATED pen for injection 04/04/20 25 Active metoprolol tartrate (LOPRESSOR) 25 mg immediate release tabletIndications: Coronary artery disease of [place] artery of [place] heart with stable angina pectoris Take 2 tablets (50 mg total) by mouth 2 (two) times a day 120 tablet 05/28/20 026 Active evolocumab (Repatha SureClick) 140 mg/mL pen injector Inject 1 mL (140 mg total) under the skin every 14 (fourteen) days 2 mL 06/01/20 25 Active metoprolol tartrate (LOPRESSOR) 25 mg immediate release tabletIndications: Coronary artery disease of [place] artery of [place] heart with stable angina pectoris Take 1 tablet (25 mg total) by mouth 2 (two) times a day 60 tablet 03/01/20 25 025 Discontin ued(Reord er) evolocumab (REPATHA) syringe syringeIndications :atherosclerotic cardiovascular disease Inject 1 mL (140 mg total) under the skin every 14 (fourteen) days 2 mL 05/28/20 25 025 Discontin ued(Error ) Active Problems Problem Noted Date Diagnosed Date Breast cancer 04/26/2025 Severe obesity 03/01/2025 Syncope and collapse 11/21/2023 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 History of COVID-19 11/14/2023 Meningioma 11/14/2023 S/P CABG (coronary artery bypass graft) 11/14/19 24 Anemia 05/21/2022 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, unspecified vessel or lesion type, unspecified whether [place] or transplanted heart 04/27/2022 Atypical chest pain 03/20/2022 Morbid (severe) obesity due to excess calories 0 03/20/2022 Body mass index 40.0-44.9, adult ([facility]) 03/20 Morbid obesity 09/12/2021 NIMA (obstructive sleep apnea) 09/12/2021 Proteinuria 07/05/2019 Systolic ejection murmur 06/19/2019 Calculus of kidney 05/29/2017 Coronary artery disease of n ative artery of [place] heart with stable angina pectoris 03/20/2017 Hyperlipidemia associated with type 2 diabetes m ellitus 03/20/2017 Hypertensive chronic kidney disease with stage [...] GERD (gastroesophageal reflux disease) Hematuria 04/24/2014 Acute OK, inferior wall 04/20/2014 ST elevation myocardial infarction [...] was a mass noted by her primary radio engineer at the time of her annual gynecological [...] exams. However, the patient is moving to [facility] to be closer to her son and grandchildren. 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 She states she likely will not be following up with this in the future. Pseudophakia 06/22/2011 Encounters Date Type Department Care Team Description 06/01/2025 Telephone [facility] Cardiology [address] [place] [address] Hussain Rollins MD 05/28/2025 10:30 AM CDT Office Visit [facility] Cardiology [address] [place] [address] Elvin, Giovanna Lilly, SOUP PERSON Coronary artery disease of [place] artery of [place] heart with stable angina pectoris; Hyperlipidemia associated with type 2 diabetes mellitus (HCC); Lipid screening; Presence of stent in coronary artery; Preoperative cardiovascular examination 05/07/2025 Results Follow-Up [facility] Gynecology/Oncolog y [address] [place] [phone] May Canales RN Pap and High Risk HPV and Genotyping (Cytology Component) 04/26/2025 1:11 PM CDT - 04/26/2025 11:59 PM CDT Hospital Encounter [facility] PATHOLOGY [address] [facility] [address] [place] [address] Ovarian mass; Vaginal mass Discharge Disposition: Discharge to home or self care 04/26/2025 10:30 AM CDT Office Visit [facility] Obstetrics and Gynecology [address] [facility] [address] [address] [place] [address] [place] [phone] Melisa Chand MD Ovarian mass (Primary Dx); Vaginal mass; S/P CABG (coronary artery bypass graft); Hypertension associated with diabetes (HCC); Morbid obesity (HCC) 04/22/2025 11:24 AM CDT - 04/22/2025 11:59 PM CDT Hospital Encounter [facility] [address] [place] [address] Diagnosis unknown Discharge Disposition: Discharge to home or self care 04/06/[address] 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, unspecified vessel or lesion type, unspecified whether [place] or transplanted heart Chronic pain disorder Brain tumor (benign) 12/2023 Family History Medical History Relation Name [...] on file Legal Sex Female 3:26 AM 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 Gender Identity Female 05/22/2019 11:23 AM CDT Sexual Orientation Straight 10/24/2021 7: 58 AM 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 Obstetrics History Last Filed Vital Signs Vital Sign Reading Time Taken Comments Blood Pressure 138/78 05/28/2025 10:25 AM CDT Pulse 72 05/28/2025 10:25 AM CDT Temperature 36.6 C (97.9 F) 04/26/2025 11:00 AM CDT Respiratory Rate 16 04/26/2025 11:00 AM CDT Oxygen Saturation 95% 05/28/2025 10:25 AM CDT Inhaled Oxygen Concentration - - Weight 117 kg (258 lb) 05/28/2025 10:25 AM CDT Height 165.1 cm (5' 5) 05/28/2025 10:25 AM CDT Body Mass Index 42.93 05/28/2025 10:25 AM CDT Plan of Treatment Health Maintenance [...] or Tdap) 12/20/2022 12/20/2012, 09/11/2004 Covid-19 Vaccine (2023- 5 season) 2024 11/23/2021, 05/03/2021, 05/03/2021, Additional history exists Influenza Vaccine (#1) 2025 , 07/14/2019, 08/18/2016, Additional history exists Fall Risk Assessment 11/02/2025 11/02/2024 Lipid Panel 05/28/2026 05/28/2025, 020 05/2024, 03/20/2022, Additional history exists Breast Cancer Screening-Mammogram Discontinued 12/09/2013, 12/09/2013, 12/06/2012 Medical Devices Implanted Type Area Cytometry Technologist Device Identifier Shelf Expiration Date Model / Serial / Lot [employer] Resolute Efren 4mm 2.1-2.7fr 18mm 140cm Rapid Exchange Radiopaque [id number] - [id number] Implanted:Qty: 1 on 04/27/2022 by Logan Ceron MD at [facility] [employer] 01/06/2025 [id number] X / / [id number] [employer] Resolute [place] 4mm 2.1-2.7fr 18mm 140cm Rapid Exchange Radiopaque [id number] - [id number] Implanted:Qty: 1 on 04/27/2022 by Logan Ceron MD at [facility] [employer] 08/22/2024 [id number] X / / [id number] 001 [employer]zama Angio-Seal Vip 6fr Closere Device [id number] - [id number] Implanted:Qty: 1 on 04/27/2022 by Logan Ceron MD at [facility] 02/10/2023 [id number] / / [id number] Procedures Procedure Name Priority Date/Time Associated Diagnosis Comments POCT LIPID PANEL Routine 05/28/2025 10:3 0 AM CDT Lipid screening PAP AND HIGH RISK HPV, REFLEX TO GENOTYPING Routine 04/26/2025 12:23 PM CDT Ovarian mass Vaginal mass SURGICAL PATHOLOGY Routine 04/26/2025 12 :23 PM CDT Ovarian mass Vaginal mass HIGH RISK HPV DNA DETECTION WITH GENOTYPING Routine 04/26/2025 12:23 PM CDT Ovarian mass Vaginal mass CT BODY OUTSIDE CONSULT Routine 04/22/2025 11:24 AM CDT Diagnosis unknown EGFR Routine 02/14/2017 1:23 AM CDT HEMOGLOBIN A1C STAT 01/29/2017 12:02 PM CDT from Last 3 Months or Most Recently Relevant to Health Maintenance Results * (ABNORMAL) POCT lipid panel (05/28/2025 10:30 AM CDT) Cholesterol, POC 165 <200 MG/DL HDL, POC 34(A) >=40 mg/dL Triglycerides, POC 259(A) <=149 mg/dL LDL Cholesterol POC 79 <=129 mg/dL Chol/HDL Ratio, POC 2.3 NONE Non-HDL Cholesterol, POC 131 NONE mg/dL Cholesterol Total, POC 165 30 - 199 mg/dL Capillary blood 05/28/2025 1 0:30 AM CDT Giovanna Oconnor NP POINT OF CARE TEST ORDERA BLES Final Result * High Risk HPV DNA Detection with Genotyping (Molecular component) (04/26/2025 12:23 PM CDT) Pathologist [facility] HPV HR 16 Not Detected Not Detected [facility] HPV HR 18 Not Detected Not Detected [facility] HPV HR Non 16/18 Not Detected Not Detected [facility] Comment: Interpretive Data Nucleic acid amplification for detection of high-risk Human Papilloma virus (HPV) is performed by the [place] 6800 HPV test. This assay specifically detects HPV-16 and HPV-18 genotypes. The following HPV genotypes are detected as high-risk HPV: HPV-31, 33, 35, ,39, 45, 51, 52, 56, 58, 59, 66, and 68. This assay has been approved by the [place] Food and Drug Administration for detection of HPV in cervical specimens collected by a physician using an endocervical brush/spatula or cervical broom and placed in the ThinPrep Pap Test PreservCyt collection containers. The performance characteristics of this test have been verified by the [facility] Molecular Infectious Disease laboratory. Correlate with separately reported cytology results, as applicable. Interpretive data last revised 23 Endocervical 04/26/2025 12:2 3 PM CDT 04/26/2025 4:37 PM CDT Narrative [facility] - 04/27/2025 6:53 PM CDT Clinical history and diagnosis->adnexal mass and vaginal polyp Testing type->Screening Last menstrual period (date if known)->over 15 years ago Premal Ayo Chand MD LAB BODY FLUIDS AND STOO LS ORDERABLES Final Result [facility] Department [place] [address] [facility] * Pap and High Risk HPV and Genotyping (Cytology Component) (04/26/2025 12:23 PM CDT) Thin prep (Pap test) 04/26/2025 12:23 PM CDT 04/26/2025 1:00 PM CDT Narrative PATHOLOGY [facility] - 05/03/2025 1:53 PM CDT EPIC results best viewed via link to PDF [facility] Ay[facility] Borg[facility] [place] [address] Note to Patients: This report may contain a detailed description of human tissue sent by a health care provider to the laboratory for pathologic evaluation. The content of this report is essential for diagnosis and may provide important critical findings. This information may be unfamiliar to patients to review without a medical professional present. It is advised that the patient review this report in the presence of a health care provider who can answer questions and explain the details. CYTOPATHOLOGY REPORT FINAL Patient Name: LIZZY FALK Gender: F : 1950 (Age: 74) Address: [address] [place], [place] [phone] Hospital #: [id number] Service: UNKNOWN Location: Patient Type: [facility] SPECIMEN Taken: 04/26/2025 Received: 04/26/2025 Accessioned: 04/26/2025 Reported: 05/03/2025 Physician(s): Melisa Chand M.D. FINAL INTERPRETATION SOURCE OF SPECIMEN Liquid based Thin Prep pap with HPV: STATEMENT OF ADEQUACY - Satisfactory for evaluation - No endocervical/transformation zone sample present in a post menopausal patient GENERAL CATEGORIZATION: - Negative for squamous intraepithelial lesion or malignancy INTERPRETATION: - Atrophy Comments (Normal-Negative for High Risk HPV) HPV HR 16- Not detected HPV HR 18-Not detected HPV HR non 16/18- Not detected Interpretive Data Nucleic acid amplification for detection of high-risk Human Papilloma virus (HPV) is performed by the [place] 6800 HPV test. This assay specifically detects HPV- 16 and HPV-18 genotypes. The following HPV genotypes are detected as high-risk HPV: HPV-31, 33, 35, 39, 45, 51, 52, 56, 58, 59, 66, and 68. This assay has been approved by the [place] Food and Drug Administration for detection of HPV in cervical specimens collected by a physician using an endocervical brush/spatula or cervical broom and placed in the ThinPrep Pap Test PreservCyt collection containers. The performance characteristics of this test have been verified by the [facility] Molecular Infectious Disease laboratory. Correlate with reported cytology results, as applicable. Interpretive data last revised 23 lwl/05/03/2025 13:53 Sammy Amos AMEYA OCHOA(ASCP)PA Report Electronically Reviewed and Signed Out By Sammy Amos AMYEA OCHOA(ASCP)JETHRO 05/03/2025 13:53:54 Cervicovaginal Cytology (Pap Test) Disclaimer: The Pap test is a screening test used to detect cervical cancer and its precursors; it is not a diagnostic procedure. False negative and false positive results do occur. Pap test results should be interpreted in the context of pertinent clinical information and biopsy results as indicated. [facility] Clinical Laboratory Improvement Amendments (CLIA) mandate that cytologic and histologic results be correlated for laboratory air quality engineer & improvement standards. FOR ALL HIGH-GRADE CASES we request submission of follow-up histological material and/or reports that have not been previously provided so that we may fulfill said required standards. Gross Description A. Liquid based Thin Prep pap with HPV: Cervical/vaginal - Screening ThinPrep Clinical Diagnosis and History Last Menstrual Period: 15 years ago The patient is a 74 year old female with adnexal mass and vaginal polyp. Report Images and scanned documents, if included only viewable in PDF version The performance characteristics of some immunohistochemical stains, in-situ hybridization and fluorescence in-situ hybridization tests and immunophenotyping by flow cytometry cited in this report (if any) were determined by the Surgical Pathology Department at [facility] as part of an ongoing software quality specialist program and in compliance with federally mandated regulations drawn from the Clinical Laboratory Improvement Act of 1988 (CLIA '88). Some of these tests rely on the use of analyte specific reagents and are subject to specific labeling requirements by the [place] Food and Drug Administration. Such diagnostic tests may only be performed in a facility that is certified by the Department of Health and Human Services as a high complexity laboratory under CLIA '88. The FDA has determined that such clearance or approval is not necessary. This test is used for clinical purposes. It should not be regarded as investigational or for research. Nevertheless, federal rules concerning the medical use of analyte specific reagents require that the following disclaimer be attached to the report: This test was developed and its performance characteristics determined by the Surgical Pathology Department of [facility]. It has not been cleared or approved by the U. S. Food and Drug Administration. [facility] MD LAB CYTOLOGY ORDERABLES Final Result PATHOLOGY [facility] 3rd Floor [place], [place] [phone] * Surgical pathology (04/26/2025 12:23 PM CDT) Tissue (Vagina, Biopsy) 04/26/2025 12:23 PM CDT 04/26/2025 1:01 PM CDT Narrative PATHOLOGY [facility] - 04/27/2025 10:11 AM CDT EPIC results best viewed via link to PDF [facility] Ayaka Borges Laboratory [place] [address] Note to Patients: This report may contain a detailed description of human tissue sent by a health care provider to the laboratory for pathologic evaluation. The content of this report is essential for diagnosis and may provide important critical findings. This information may be unfamiliar to patients to review without a medical professional present. It is advised that the patient review this report in the presence of a health care provider who can answer questions and explain the details. SURGICAL PATHOLOGY REPORT FINAL Patient Name: LIZZY FALK Gender: F : 1950 (Age: 74) Address: [address] [place], [place] [phone] Hospital #: [id number] Taken:04/26/2025 Received:04/26/2025 Reported: 04/27/2025 Patient Type: [facility] SPECIMEN Service: UNKNOWN Location: Physician(s): Melisa Chand M.D. Diagnosis: Vaginal, left, biopsy - Fibroepithelial polyp - No evidence of dysplasia or malignancy [facility]/04/27/2025 08:23 By this signature, I attest that the above diagnosis is based upon my personal examination of the slides(and/or other material indicated in the diagnosis). Derick Zeng M.D., Ph.D. Report Electronically Reviewed and Signed Out By Derick Zeng M.D., Ph.D. 04/27/2025 10:11:51 Diana Dorado M.D. History: The patient is a 74-year-old woman with polypoid lesion in left vaginal fornix. Operative procedure: Vaginal polyp biopsy. Specimen(s) Received: A: Left vaginal polyp Gross Description: Received in formalin, labeled with the patient s identifiers and left vaginal polyp and consists of a single red-purple fragment(s) of soft tissue measuring 0.4 cm in greatest dimension. Labeled A1. Jar 0. sxs/04/26/2025 14:19 PA(s): Bebe Padilla By this signature, I attest that the above diagnosis is based upon my personal examination of the slides(and/or other material). Addenda/Procedures The performance characteristics of some immunohistochemical stains, fluorescence in-situ hybridization tests and immunophenotyping by flow cytometry cited in this report (if any) were determined by the Surgical Pathology and Flow Cytometry Departments at [facility] as part of an ongoing software quality specialist program and in compliance with federally mandated regulations drawn from the Clinical Laboratory Improvement Act of 1988 (CLIA '88). Some of these tests rely on the use of analyte specific reagents and are subject to specific labeling requirements by the [place] Food and Drug Administration. Such diagnostic tests may only be performed in a facility that is certified by the Department of Health and Human Services as a high complexity laboratory under CLIA '88. The FDA has determined that such clearance or approval is not necessary. This test is used for clinical purposes. It should not be regarded as investigational or for research. Nevertheless, federal rules concerning the medical use of analyte specific reagents require that the following disclaimer be attached to the report: This test was developed and its performance characteristics determined by the Surgical Pathology and Flow Cytometry Departments of [facility]. It has not been cleared or approved by the U. S. Food and Drug Administration. IMAGES AND SCANNED DOCUMENTS, IF INCLUDED, ONLY VIEWABLE IN PDF VERSION OF REPORT us Premwi Ayo Chand MD LAB PATHOLOGY ORDERABLES Final Result PATHOLOGY [facility] 3rd Floor [place], [place] [phone] * CT Body Outside Consult (04/22/2025 11:24 AM CDT) Anatomical Region Laterality Modality Body N/A Computed Tomogra phy 04/22/2025 2:51 PM CDT Impressions 04/22/2025 3:13 PM CDT IMPRESSION: 1. There is a 8.9 cm right adnexal cyst with simple fluid density is incompletely characterized on this examination. Recommend further evaluation with pelvic ultrasound or MRI for further characterization. 2. Incidentally noted nephrolithiasis on the right and cholelithiasis The findings, conclusions and recommendations within this report do not replace the initial findings, conclusions and recommendations made at the facility where the study was performed based upon the imaging and clinical condition at that time. Comparison with the prior report and clinical history is necessary. The provided images may or may not represent the [place] source data set and thus may contain changes that may lower the accuracy of this second-opinion interpretation. Dictated by: Lawrence Mccall MD The radiology attending physician has personally reviewed this study, and had reviewed and/or edited this written report and agrees with it. Electronically signed by: Jackson Laird M.D. Narrative 04/22/2025 3:13 PM CDT EXAMINATION: RADIOLOGY CONSULTATION ON OUTSIDE IMAGING STUDY STUDY INITIALLY PERFORMED: 03/21/2025 at [facility]. TYPE OF STUDY: Multiple CT images of the abdomen and pelvis without contrast are provided at the time of this interpretation. CONTRAST ROUTE: No contrast was administered. The protocol was adequate to address the clinical question. The outside final report was not available at the time of this second opinion interpretation. TYPE OF CONSULTATION: Consult on outside imaging study with images submitted through Outside Image Sharing Service DATE OF CONSULTATION: 04/22/2025 1:55 PM HISTORY: Adnexal mass COMPARISON: 03/12/2017 FINDINGS: Severely calcified coronary arteries. Lung bases are otherwise clear. Liver, spleen, pancreas, and adrenal glands are normal. Decompressed gall bladder with cholelithiasis. There is no biliary ductal dilation. Severely atrophic right kidney with a cyst. Kidney stones is in the right kidney without hydronephrosis. No left-sided nephrolithiasis. Bladder is nondistended but is normal. Small bowel and colonic bowels are normal in caliber. There is colonic diverticulosis. The uterus is identified. There is a large 8.9 x 7.2 cm right adnexal cyst anterior to the uterus. There is no significant wall thickening or thickened internal septations. There is abdominal aortic atherosclerosis. No acute osseous abnormality. Procedure Note Jackson Laird MD - 04/22/2025 EXAMINATION: RADIOLOGY CONSULTATION ON OUTSIDE IMAGING STUDY STUDY INITIALLY PERFORMED: 03/21/2025 at [facility]. TYPE OF STUDY: Multiple CT images of the abdomen and pelvis without contrast are provided at the time of this interpretation. CONTRAST ROUTE: No contrast was administered. The protocol was adequate to address the clinical question. The outside final report was not available at the time of this second opinion interpretation. TYPE OF CONSULTATION: Consult on outside imaging study with images submitted through Outside Image Sharing Service DATE OF CONSULTATION: 04/22/2025 1:55 PM HISTORY: Adnexal mass COMPARISON: 03/12/2017 FINDINGS: Severely calcified coronary arteries. Lung bases are otherwise clear. Liver, spleen, pancreas, and adrenal glands are normal. Decompressed gall bladder with cholelithiasis. There is no biliary ductal dilation. Severely atrophic right kidney with a cyst. Kidney stones is in the right kidney without hydronephrosis. No left-sided nephrolithiasis. Bladder is nondistended but is normal. Small bowel and colonic bowels are normal in caliber. There is colonic diverticulosis. The uterus is identified. There is a large 8.9 x 7.2 cm right adnexal cyst anterior to the uterus. There is no significant wall thickening or thickened internal septations. There is abdominal aortic atherosclerosis. No acute osseous abnormality. IMPRESSION: IMPRESSION: 1. There is a 8.9 cm right adnexal cyst with simple fluid density is incompletely characterized on this examination. Recommend further evaluation with pelvic ultrasound or MRI for further characterization. 2. Incidentally noted nephrolithiasis on the right and cholelithiasis The findings, conclusions and recommendations within this report do not replace the initial findings, conclusions and recommendations made at the facility where the study was performed based upon the imaging and clinical condition at that time. Comparison with the prior report and clinical history is necessary. The provided images may or may not represent the [place] source data set and thus may contain changes that may lower the accuracy of this second-opinion interpretation. Dictated by: Lawrence Mccall MD The radiology attending physician has personally reviewed this study, and had reviewed and/or edited this written report and agrees with it. Electronically signed by: Jackson Laird M.D. us Premwi Ayo Chand MD IMG CT PROCEDURES Final Result * eGFR (02/14/2017 1:23 AM CDT) eGFR 14 mL/min/1.7 3 m2 [facility] Comment: Interpretive Data Reference Interval Normal >/= 90 mL/min/1.73m2 Mildly decreased* 60 - 89 mL/min/1.73m2 Mildly to moderately decreased 45 - 59 mL/min/1.73m2 Moderately to severely decreased 30 - 44 mL/min/1.73m2 Severely decreased 15 - 29 mL/min/1.73m2 Kidney Failure < 15 mL/min/1.73m2 *Relative to young adult level If -Micronesian multiply value by 1.16. Estimated glomerular filtration [...] ORDERABLES Final Re sult Performing Organization Address [facility]/ZIP Co de Phone Number [facility] [address] Department [place] [address] * (ABNORMAL) Hemoglobin A1c (01/29/2017 12:02 PM CDT) Hgb A1C 11.2(H) 4.0 - 6.0 % [facility] Blood specimen (specimen) 01/29/2017 12:02 PM CDT 01/29/2017 1:45 PM CDT us Will Mcmahon MD LAB BLOOD ORDERABLES Final Re sult [facility] [address] [place] [place] [address] from Last 3 Months or Most Recently Relevant to Health Maintenance Insurance [facility] MEDICARE ADVANTAGE [facility] MEDICARE ADVANTAGE MEDICARE ADVANTAGE Care Teams Granular Operator Relationship Specialty Start Date End Date James Candelaria DO [address] [place] [address] PCP - General Family Medicine 01/28/24
--- OUTSIDE RECORDS SUMMARY | 2025-06-07 12:28 | XMS_ITS | Clinical Summary ---
Author Organization [facility] Address [address] [place] [address] Care Team Providers Care Percussion Tuner Name Role Phone Unavailable Primary Care Provider Unavailabl e Social History Tobacco Use Types Packs/Day Years Used Date Smoking Tobacco: Never Assessed Comments Unknown Sex and Gender Information Value Date Recorded Sex Assigned at Not on file Legal Sex Female 11:13 PM TAPEMAN Gender Identity Not on file Sexual Orientation Not on file Last Filed Vital Signs Vital Sign Reading Time Taken Comments Blood Pressure - - Pulse - - Temperature - - Respiratory Rate - - Oxygen Saturation - - Inhaled Oxygen Concentration - - Weight 113.4 kg (250 lb) 08/30/2015 3:53 PM TAPEMAN Height 167.6 cm (5' 6) 08/30/2015 3:53 PM TAPEMAN Body Mass Index 40.35 08/30/2015 3:53 PM TAPEMAN Plan of Treatment Health Maintenance Due Date Last Done Comments Hepatitis C 1966 DTaP, Tdap and Td Vaccines ( 1 - Tdap) 1967 Pneumococcal Vaccine: 50+ Ye ars (1 of 1 - PCV) 1998 Zoster Vaccines (1 of 2) 1998 Dexa Scan (General) 2013 RSV Immunization or 60+ Years (1 - 1-dose 75+ series) 2023 COVID-19 Vaccine (2023-2 5 season) 2024 Meningococcal B Vaccine Aged Out No l onger eligible based on patient's age to complete this topic Meningococcal Vaccine Aged Out No chadwick andrey eligible based on patient's age to complete this topic RSV Immunizations Under 20 Months Aged Out No longer eligible based on patient's age to complete this topic
--- OUTSIDE RECORDS SUMMARY | 2025-06-07 12:28 | XMS_ITS | Encounter Summary ---
Author Organization [facility] Address [facility] [place] [address] Care Team Providers Care Personnel Clerks Supervisor Name Role Phone Unavailable Primary Care Provider Unavailabl e Encounter Details Date Type Department Care Team (Late st Contact Info) Description 03/21/2019 Abstract SFL CONVERSION [address] [place] [address] , Generic Conversion, Social History Tobacco Use Types Packs/Day Years Used Date Smoking Tobacco: Never Assessed Comments Unknown Sex and Gender Information Value Date Recorded Sex Assigned at Not on file Legal Sex Female 11:13 PM COMMERCIAL DIVER Gender Identity Not on file Sexual Orientation Not on file documented as of this encounter Plan of Treatment Not on file documented as of this encounter Visit Diagnoses Not on filedocumented in this encounter
== END 2025-06-07 12:13 | disposition home or self-care (01) ==
LOC: CHSIMG 12:16
PROVIDERS: PCP Family Medicine; Visit Provider Obstetrics & Gynecology Gynecologic Oncology
DX: N83.8 Other noninflammatory disorders of ovary, fallopian tube and broad ligament (principal)
CPT/HCPCS: 76856

== ENCOUNTER 2025-08-28 10:36 | Outpatient (CLI) | payer MEDICARE, SELFPAY ==
--- OUTSIDE RECORDS SUMMARY | 2025-08-28 10:40 | XMS_ITS ---
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 History of COVID-19 11/14/2023 Meningioma 11/14/2023 S/P CABG (coronary artery bypass graft) 11/14/19 24 Anemia 05/21/2022 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, unspecified vessel or lesion type, unspecified whether [place] or transplanted heart 04/27/2022 Atypical chest pain 03/20/2022 Morbid (severe) obesity due to excess calories 0 03/20/2022 Body mass index 40.0-44.9, adult ([facility]) 03/20 Morbid obesity 09/12/2021 NIMA (obstructive sleep apnea) 09/12/2021 Proteinuria 07/05/2019 Systolic ejection murmur 06/19/2019 Calculus of kidney 05/29/2017 Coronary artery disease of n ative artery of [place] heart with stable angina pectoris 03/20/2017 Hyperlipidemia [...] GERD (gastroesophageal reflux disease) Hematuria 04/24/2014 Acute VT, inferior wall 04/20/2014 ST elevation myocardial infarction [...] was a mass noted by her primary cheese weigher at the time of her annual gynecological [...] exams. However, the patient is moving to [facility] to be closer to her son and [...]
--- OUTSIDE RECORDS SUMMARY | 2025-08-28 10:40 | XMS_ITS | Clinical Summary ---
Author Organization [facility] Address [address] [place] [address] Care Team Providers Care Switchbox Assembler Name Role Phone Unavailable Primary Care Provider Unavailabl e Family History Medical History Relation Name Comments Breast Cancer Neg Hx Social History Tobacco Use Types Packs/Day Years Used Date Smoking Tobacco: Never Assessed Comments Unknown Sex and Gender Information Value Date Recorded Sex Assigned at Not on file Legal Sex Female 2:42 AM DIRECTORY COMPILER Gender Identity Not on file Sexual Orientation [...] 1-dose 75+ series) 2023 Influenza Immunization (#1) 2025 SARS-COV-2 Immunization ( - season) 2025 Hepatitis B Immunization Aged Out No [...] CAD W BONITA Routine 12/09/2013 8:40 AM DIRECTORY COMPILER Other screening mammogram from Last 3 Months or Most Recently Relevant to Health Maintenance Results * GARY SCREENING BILATERAL DIGITAL W CAD W BONITA (12/09/2013 8:40 AM DIRECTORY COMPILER) Anatomical Region Laterality Modality breast Bilateral Mammography, Oth er 12/09/2013 8:40 AM DIRECTORY COMPILER Impressions 12/09/2013 11:35 AM DIRECTORY COMPILER IMPRESSION: No evidence of malignancy. ASSESSMENT: Right [...] IMAGING WORKUP WILL BE SCHEDULED BY [facility]. Narrative 12/09/2013 11:35 AM DIRECTORY COMPILER BILATERAL SCREENING MAMMOGRAM WITH TOMOSYNTHESIS TECHNIQUE: Bilateral [...] IMAGING WORKUP WILL BE SCHEDULED BY [facility]. us Zaid Arenas MD IMG MAMMO ORDERABLES Final R esult from Last 3 Months or Most Recently Relevant to Health Maintenance
--- OUTSIDE RECORDS SUMMARY | 2025-08-28 10:40 | XMS_ITS | Clinical Summary ---
Author Organization [facility] Address [address] [place] [address] Care Team Providers Care Systems Architecture Analyst Name Role Phone Unavailable Primary Care Provider Unavailabl e Source Comments [facility],non-owned Affiliates and Associated Physician Practices is amultiple site organization consisting of ambulatory clinics and hospital sitesin [place], [place], [place] and [place]. This disclosure is being madepursuant to the Care Everywhere program and may not contain all information available regarding this patient. Last updated 18.[facility] Active Problems Problem Noted Date Diagnosed Date Brain mass 11/13/2023 Social History Tobacco Use Types Packs/Day Years Used Date Smoking Tobacco: Never Assessed Comments Unknown Sex and Gender Information Value Date Recorded Sex Assigned at Not on file Legal Sex Female 11:32 AM INTERLOCKING TOWER OPERATOR Gender Identity Not on file Sexual [...] yrs (1 - 1-dose 75+ series) 2023 DEPRESSION SCREENING 10/14/2024 MEDICARE AWV CALENDAR YEAR 2024 COVID-19 VACCINE (2024- season) 2025 05/03/2021, 04/12/2021 INFLUENZA VACCINE (#1) 2025 , [...] to complete this topic Insurance [id number] [facility] [address] MANAGED MEDICARE ADV MEDICARE
--- OUTSIDE RECORDS SUMMARY | 2025-08-28 10:40 | XMS_ITS | Clinical Summary ---
Author Organization [facility] Address [address] [place] [address] Phone Care Team Providers Care Scale Tester Name Role Phone Lorena Anthony MD Primary Care Provider [phone] Allergies Active Allergy Reactions Criticality Noted Date [...] once 6 Active Blood Glucose Monitoring Suppl (MicrotuneTOUCH VERIO) w/Device kit 0 Active ONETOUCH VERIO [...] 20 MG tablet 1 Active TRUEplus Pen [place] 31G X 8 MM misc 2 Active [...] diabetic kidney complication 10/10/2014 Coronary arteriosclerosis in [place] cliff artery 08/19 Overview (07/05/2019): Overview: CAD (coronary [...] 09/21/2007 09/21/2006, 03/03/1992 COVID-19 Vaccine (3 - 2024-2 6 season) 2025 05/03/2021, 04/12/2021, 02/04/2021 Influenza Vaccine (#1) 2025 5, 10/20/2014, 08/21/2012, Additional history exists Insurance [employer] MEDICARE Care Teams Scale Tester Relationship Specialty Start Date End Date Lorena Anthony MD [address] [facility] [address] [facility] [address] [place] [address] PCP - General Internal Medicine 04/27/20
--- OUTSIDE RECORDS SUMMARY | 2025-08-28 10:41 | XMS_ITS | Encounter Summary ---
Author Organization [facility] Address [facility] [place] [address] Care Team Providers Care Av Specialist Name Role Phone Unavailable Primary Care Provider Unavailabl e Encounter Details Date Type Department Care Team (Late st Contact Info) Description 03/21/2019 Abstract SFL CONVERSION [address] [place] [address] , Generic Conversion, Social History Tobacco Use Types Packs/Day Years Used Date Smoking Tobacco: Never Assessed Comments Unknown Sex and Gender Information Value Date Recorded Sex Assigned at Not on file Legal Sex Female 11:13 PM MAGNETIC TAPE COMPOSER OPERATOR Gender Identity Not on file Sexual Orientation Not on file documented as of this encounter Plan of Treatment Not on file documented as of this encounter Visit Diagnoses Not on filedocumented in this encounter
--- OUTSIDE RECORDS SUMMARY | 2025-08-28 10:41 | XMS_ITS | Clinical Summary ---
Author Organization [facility] Address [address] [place] [address] Phone Care Team Providers Care Air Quality Consultant Name Role Phone Lorena Anthony MD Primary Care Provider [phone] Allergies Active Allergy Reactions Criticality Noted Date Comments Adhesive Unknown Medium 11/14/2023 Cefdinir Unknown 11/14/2023 Hydrocodone Unknown 11/14/2023 [place] Anaphylaxis High 11/16/2023 Prochlorperazine Unknown 11/14/2023 Medications [...] 11/14/2023 History of COVID-19 11/14/2023 Atherosclerosis of [place] ronary artery of [place] heart without angina pectoris 11/14/2023 S/P CABG (coronary artery bypass graft) 11/14/19 Type 2 diabetes mellitus wit hout complication, with long-term current use of insulin 11/14/2023 Primary hypertension 11/14/2023 CKD (chronic kidney disease) stage 4, GFR 15-29 ml/min 11/14/2023 Meningioma 11/14/2023 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 Encounters Date Type Department Care Team Description 06/09/2025 External Device Data ST[facility] ABSTRACTION Provider, Abstract 06/02/2025 External Device Data [facility] ABSTRACTION Provider, [...] on file Legal Sex Female 7:46 PM JERSEY KNITTER Gender Identity Not on file Sexual Orientation Not on file Last Filed Vital Signs Vital Sign Reading Time Taken Comments Blood Pressure 153/60 11/16/2023 7:23 AM JERSEY KNITTER Pulse 66 11/16/2023 7:23 AM JERSEY KNITTER Temperature 36.7 C (98.1 F) 11/16/2023 8:07 AM JERSEY KNITTER Respiratory Rate 21 11/16/2023 7:23 AM JERSEY KNITTER Oxygen Saturation 96% 11/16/2023 7:23 AM JERSEY KNITTER Inhaled Oxygen Concentration - - Weight 104.6 kg (230 lb 11.2 oz) 11/14/2023 2:26 AM JERSEY KNITTER Height 167.6 cm (5' 6) 11/14/2023 2:26 AM JERSEY KNITTER Body Mass Index 37.24 11/14/2023 2:26 AM JERSEY KNITTER Plan of Treatment Health Maintenance Due Date [...] 1-dose 75+ series) 2023 INFLUENZA VACCINE (#1) 2025 , 07/14/2019, 08/24/2015, Additional history exists COVID-19 Vaccine (3 - 2024-2 6 season) 2025 05/03/2021, 04/12/2021 Insurance Advance Directives For more information, please contact: [phone] * Full Code (Latest Code Status on File) Date Activated Date Inactivated Comments 11/14/2023 5:11 AM 11/16/2023 3:51 PM Care Teams Air Quality Consultant Relationship Specialty Start Date End Date Lorena Anthony MD [address] [facility] [address] [place] [address] PCP - General Family Practice 11/14/23
--- OUTSIDE RECORDS SUMMARY | 2025-08-28 10:41 | XMS_ITS | Clinical Summary ---
Author Organization [facility] Address [address] [place] [address] Care Team Providers Care Electronics Utility Worker Name Role Phone James Candelariah Primary Care Provider Allergies Active Allergy Reactions Criticality Noted Date Comments Adhesive Rash Medium Apricot Anaphylaxis,Rash High 04/23/2022 Other Rash Medium 04/23/2022 Clothing dye [place] Anaphylaxis,Rash High 04/23/2022 Prochlorperazine Anaphylaxis High Medications cholecalciferol (VITAMIN D3) 400 unit capsule take 1 by Oral route once 0 0 6 Active TRUEplus Pen Needle 31 gauge x 5/16 needle 1 Active calcitRIOL (ROCALTROL) 0.25 mcg capsule 1 capsule (0.25 mcg total) as directed M-W-F take in the AM 2 Active furosemide (LASIX) 20 mg tablet Take 2 tablets (40 mg total) by mouth daily 3 Active aspirin 81 mg enteric coated tabletIndication s:Coronary artery disease of [place] artery of [place] heart with stable angina pectoris Take 1 tablet (81 mg total) by mouth daily 4 03/01/20 26 Active clopidogreL (PLAVIX) 75 mg tablet Take 1 tablet (75 mg total) by mouth daily 30 tablet 5 11/02/19 26 Active Vascepa 1 gram capsule Take 1 capsule (1 g total) by mouth 2 (two) times a day 60 capsule 5 11/16/19 26 Active Additional Information Patient not taking.Reason: Cost, Reported on 07/06/2025 cloNIDine (CATAPRES) 0.1 mg tablet TAKE ONE TABLET BY MOUTH TWICE A DAY 180 tablet 3 5 Active atorvastatin (LIPITOR) 80 mg tabletIndication s:Hyperlipidemia associated with type 2 diabetes mellitus (HCC),Coronary artery disease involving [place] coronary artery of [place] heart without angina pectoris TAKE ONE TABLET BY MOUTH DAILY 90 tablet 3 5 Active nitroglycerin (Nitrostat) 0.4 mg SL tabletIndication s:Coronary artery disease involving [place] coronary artery of [place] heart without angina pectoris Place 1 tablet (0.4 mg total) under the tongue every 5 (five) minutes as needed for chest pain 25 tablet 3 5 03/01/20 26 Active OneTouch Verio test strips strip 5 Active oxyCODONE (ROXICODONE) 5 mg immediate release tablet 5 Active HumuLIN R U-500 500 unit/mL (3 mL) CONCENTRATED pen for injection 5 Active evolocumab (Repatha SureClick) 140 mg/mL pen injector Inject 1 mL (140 mg total) under the skin every 14 (fourteen) days 2 mL 11 5 Active Additional Information Patient not taking.Reason: Side effects, Reported on 07/06/2025 metoprolol tartrate (LOPRESSOR) 50 mg immediate release tabletIndication s:Coronary artery disease of [place] artery of [place] heart with stable angina pectoris Take 1 tablet (50 mg total) by mouth 2 (two) times a day 180 tablet 3 5 07/06/[address] (PROTONIX) 40 mg EC tablet TAKE ONE TABLET BY MOUTH TWICE A DAY 60 tablet 11 5 Active Active Problems Problem Noted Date Diagnosed Date Breast cancer 04/26/2025 Severe obesity 03/01/2025 Syncope and collapse 11/21/2023 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 History of COVID-19 11/14/2023 Meningioma 11/14/2023 S/P CABG (coronary artery bypass graft) 11/14/19 24 Anemia 05/21/2022 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, unspecified vessel or lesion type, unspecified whether [place] or transplanted heart 04/27/2022 Atypical chest pain 03/20/2022 Morbid (severe) obesity due to excess calories 0 03/20/2022 Body mass index 40.0-44.9, adult ([facility]) 03/20 Morbid obesity 09/12/2021 NIMA (obstructive sleep apnea) 09/12/2021 Proteinuria 07/05/2019 Systolic ejection murmur 06/19/2019 Calculus of kidney 05/29/2017 Coronary artery disease of n ative artery of [place] heart with stable angina pectoris 03/20/2017 Hyperlipidemia [...] GERD (gastroesophageal reflux disease) Hematuria 04/24/2014 Acute ND, inferior wall 04/20/2014 ST elevation myocardial infarction [...] was a mass noted by her primary manager research and development at the time of her annual gynecological [...] exams. However, the patient is moving to [facility] to be closer to her son and grandchildren. 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 She states she likely will not be following up with this in the future. Pseudophakia 06/22/2011 Encounters Date Type Department Care Team Description 07/06/2025 10:30 AM CDT Office Visit [facility] Medical Group Cardiology [address] [facility] [address] [place] [address] Giovanna Oconnor NP Coronary artery disease of [place] artery of [place] heart with stable angina pectoris (Primary Dx); Hyperlipidemia associated with type 2 diabetes mellitus (HCC); Preoperative cardiovascular examination 07/02/2025 Telephone [facility]necology [address] [facility] [address] [place] [address] [place] [address] Skylar Cornejo RN 06/25/2025 Telephone [facility] Obstetrics [facility] Gynecology [address] [facility] [address] [place] [address] [place] [address] Johanny Abreu RN 06/24/2025 Telephone [facility] Obstetrics [facility] Gynecology [address] [facility] 13th [place] [address] [place] [address] Imani Hirsch RN 06/01/2025 Telephone [facility] Medical Group Cardiology [address] [place] [address] Hussain Rollins MD 05/28/2025 10:30 AM CDT Office Visit [facility] Medical [facility] Cardiology [address] [place] [address] Giovanna Oconnor NP Coronary artery disease of [place] artery of [place] heart with stable angina pectoris; Hyperlipidemia associated with type 2 diabetes mellitus (HCC); Lipid screening; Presence of stent in coronary artery; Preoperative cardiovascular examination from Last 3 Months Immunizations Immunization Administration [...] 08/19/2014 - Sleep apnea Coronary artery disease ND (myocardial infarction) (HCC) Hypertension Type 2 diabetes mellitus PONV (postoperative nausea and vomiting) Cataract Motion sickness CKD (chronic kidney disease) Kidney stone Malignant neoplasm of left breast (HCC) Deafness in right ear Awareness under anesthesia Heart murmur 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, unspecified vessel or lesion type, unspecified whether [place] or transplanted heart Chronic pain disorder Brain [...] Date Smoking Tobacco: Former Cigarettes Q uit: 1978 Smokeless Tobacco: Never Tobacco Cessation:Counseling Given: Not [...] on file 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 Gender Identity Female 05/22/2019 11:23 AM CDT Sexual Orientation Straight 10/24/2021 7: 58 AM BREEDING TECHNICIAN Last Filed Vital Signs Vital Sign Reading Time Taken Comments Blood Pressure 130/78 07/06/2025 10:12 AM CDT Pulse 76 07/06/2025 10:12 AM CDT Temperature 36.6 C (97.9 F) 04/26/2025 11:00 AM CDT Respiratory Rate 16 04/26/2025 11:00 AM CDT Oxygen Saturation 97% 07/06/2025 10:12 AM CDT Inhaled Oxygen Concentration - - Weight 113.9 kg (251 lb) 07/06/2025 10:12 AM CDT Height 165.1 cm (5' 5) 07/06/2025 10:12 AM CDT Body Mass Index 41.77 07/06/2025 10:12 AM CDT Plan of Treatment Health Maintenance Due Date Last Done Comments Albumin Creatinine Ratio, Urine 1950 Depression Screening 1950 Hepatitis C Screening 1950 Osteoporosis Screening-Bone Density Scan 1950 Dilated Eye Exam 1948 Foot Exam 1948 Hepatitis B Screening 1966 Well Visit 65+ 2013 Zoster Vaccine (2 of 3) 12/15/2013 10/20/2013, 12/20 Pneumococcal vaccine 65+ (2 of 2 - PCV) 09/14/2014 09/14/2013, 09/21/2006, 03/03/1992 Hemoglobin A1C 07/31/2017 01/29/2017 eGFR 02/14/2018 02/14/2017, 12/2016, 01/29/2017 DTaP/Tdap/Td Vaccine (2 - Td or Tdap) 12/20/2022 12/20/2012, 09/11/2004 Covid-19 Vaccine (8 - 2024-2 6 season) 2025 11/23/2021, 05/03/2021, 05/03/2021, Additional history exists Influenza Vaccine (#1) 2025 , 07/14/2019, 08/18/2016, Additional history exists Fall Risk Assessment 11/02/2025 11/02/2024 Lipid Panel 05/28/2026 05/28/2025, 02/05/2024, 03/20/2022, Additional history exists Breast Cancer Screening-Mammogram Discontinued 12/09/2013, 12/09/2013, 12/06/2012 Medical Devices Implanted Type Area Frog Shaker Device Identifier Shelf Expiration Date Model / Serial / Lot Med[employer]onic Inc Resolute [place]ge 4mm 2.1-2.7fr 18mm 140cm Rapid Exchange Radiopaque [id number] - [id number] Implanted:Qty: 1 on 04/27/2022 [facility] 01/06/2025 [id number] / / [id number] [employer] Resolute Efren 4mm 2.1-2.7fr 18mm 140cm Rapid Exchange Radiopaque [id number] - [id number] Implanted:Qty: 1 on 04/27/2022 by Logan Ceron MD at [facility] [employer] 08/22/2024 [id number] / / [id number] [employer] [facility] Angio-Seal Vip 6fr Closere Device [id number] - [id number] Implanted:Qty: 1 on 04/27/2022 [facility]/10/2023 [id number] / / [id number] Procedures Procedure Name Priority Date/Time Associated Diagnosis Comments POCT LIPID PANEL Routine 05/28/2025 10:3 0 AM CDT Lipid screening EGFR Routine 02/14/2017 1:23 AM CDT HEMOGLOBIN [...] Capillary blood 05/28/2025 1 0:30 AM CDT us Giovanna Oconnor NP POINT OF CARE TEST ORDERA BLES Final Result * eGFR (02/14/2017 1:23 AM CDT) eGFR 14 mL/min/1.7 3 m2 [facility] Comment: Interpretive Data Reference Interval Normal >/= 90 mL/min/1.73m2 Mildly decreased* 60 - 89 mL/min/1.73m2 Mildly to moderately decreased 45 - 59 mL/min/1.73m2 Moderately to severely decreased 30 - 44 mL/min/1.73m2 Severely decreased 15 - 29 mL/min/1.73m2 Kidney Failure < 15 mL/min/1.73m2 *Relative to young adult level If -Tanz[place] multiply value by 1.16. Estimated glomerular filtration [...] MD LAB BLOOD ORDERABLES Final Re sult [facility] [address] [place] [address] * (ABNORMAL) Hemoglobin A1c (01/29/2017 12:02 PM CDT) Hgb A1C 11.2(H) 4.0 - 6.0 % [facility] Blood specimen (specimen) 01/29/2017 12:02 PM CDT 01/29/2017 1:45 PM CDT us Will Mcmahon MD LAB BLOOD ORDERABLES Final Re sult [facility] [address] Department [place] [address] from Last 3 Months or Most Recently Relevant to Health Maintenance Insurance MEDICARE ADVANTAGE [facility] MEDIC[facility] Address: [place] [address] [employer] MEDICARE ADVANTAGE [facility] MEDIC[facility] Address: [address] [address] [facility] MEDICARE ADVANTAGE [facility] Address: [facility] [address] [place] [address] Care Teams Electronics Utility Worker Relationship Specialty Start Date End Date James Candelaria DO [address] [place], [place] [id number] PCP - General Family Medicine 01/28/24
--- OUTSIDE RECORDS SUMMARY | 2025-08-28 10:42 | XMS_ITS | Clinical Summary ---
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 Gender Identity Not on file Sexual Orientation Not on file Last Filed Vital Signs Vital Sign Reading Time Taken Comments Blood Pressure - - Pulse - - Temperature - - Respiratory Rate - - Oxygen Saturation - - Inhaled Oxygen Concentration - - Weight 113.4 kg (250 lb) 08/30/2015 3:53 PM ROUTE RIDER Height 167.6 cm (5' 6) 08/30/2015 3:53 PM ROUTE RIDER Body Mass Index 40.35 08/30/2015 3:53 PM ROUTE RIDER Plan of Treatment Health Maintenance Due Date Last Done Comments Hepatitis C 1966 DTaP, Tdap and Td Vaccines ( 1 - Tdap) 1967 Pneumococcal Vaccine: 50+ Ye ars (1 of 1 - PCV) 1998 Zoster Vaccines (1 of 2) 1998 Dexa Scan (General) 2013 RSV Immunization or 60+ Years (1 - 1-dose 75+ series) 2023 COVID-19 Vaccine (2024-2 6 season) 2025 Influenza Adult (#1) 2025 Hepatitis A Vaccines Aged Out No long er eligible based on patient's age to complete this topic Meningococcal B Vaccine Aged Out No l onger eligible based on patient's age to complete this topic Meningococcal Vaccine Aged Out No chadwick andrey eligible based on patient's age to complete this topic RSV Immunizations Under 20 Months Aged Out No longer eligible based on patient's age to complete this topic
[2025-08-28 11:23] LABS: Albumin Level 4.0 g/dL (3.5-5.1); Anion Gap 10 mmol/L (4-12); Blood Urea Nitrogen 35 mg/dL (7-17); Calcium 9.1 mg/dL (8.4-10.2); Carbon Dioxide 24 mmol/L (22-30); Chloride 106 mmol/L (98-107); Estimated Glomerular Filt Rate 20; Glucose 125 mg/dL (65-110); Potassium 3.7 mmol/L (3.4-5.0); Sodium 140 mmol/L (137-145)
[2025-08-28 11:37] LABS: Total Protein Urine Random 228 mg/dL; Ur Ttl Prot Creatinine Ratio 2.84 mg/mg (0-0.20)
== END 2025-08-28 10:37 | disposition home or self-care (01) ==
LOC: ANHLAB 10:37
PROVIDERS: PCP Family Medicine; Visit Provider Internal Medicine Nephrology
DX: I12.9 Hypertensive chronic kidney disease with stage 1 through stage 4 chronic kidney disease, or unspecified chronic kidney disease (principal); N18.4 Chronic kidney disease, stage 4 (severe); R80.8 Other proteinuria; E11.22 Type 2 diabetes mellitus with diabetic chronic kidney disease
CPT/HCPCS: 36415; 80069; 82570; 84156

== ENCOUNTER 2025-09-15 16:33 | Emergency (ER) | payer MEDICARE, SELFPAY ==
--- OUTSIDE RECORDS SUMMARY | 2024-07-16 07:50 | XMS_ITS ---
Author Organization [facility] Address [address] [place], [place] [id number] Care Team Providers Care E Learning Manager Name Role Phone BOUBACAR SPENCER Unavailable [phone] James Candelaria Unavailable Unavailable FARNAZ VASQUEZ Unavailable [phone] REASON FOR VISIT *General care Encounters Encounter Location Date Provider Diagnosis [facility] [address] [place], [place] [id number] 07/16/2024 FARNAZ VASQUEZ Plan Of Treatment Next Appt Details Provider Name:BOUBACAR CHRISTIANSON, 09/23/2025 10:30:00 AM, [address] [place] [address], [id number], Progress Notes * ODILON JARVISEEDOB: [birth year] (75 yo F)Acc No.[id number]:07/16/2024 Patient: Viv LIZZY HOWARD Provider: Marquise VASQUEZ :1950 A ge:74 Y S ex:Female Date:07/16/2024 Address:[address] [place] [address], [address] [id number] Subjective: * Chief Complaints: * * General care Billing Information: * Procedure Codes: * Electronic signature of ARY VASQUEZ DPM on 09/15/2025 at 05:13 PM CHEMICAL INSPECTOR Sign off status: Pending * Provider: Marquise VASQUEZ Date: Generated for Rianna Yuang/Ana Maria on: 1 11/16/2024 05:13 PM CHEMICAL INSPECTOR
--- OUTSIDE RECORDS SUMMARY | 2024-09-24 07:50 | XMS_ITS ---
Author Organization [facility] Address [address] [place], [place] [id number] Care Team Providers Care Cable Systems Installer Name Role Phone BOUBACAR SPENCER Unavailable [phone] James Candelaria Unavailable Unavailable FARNAZ VASQUEZ Unavailable [phone] REASON FOR VISIT *General care Encounters Encounter Location Date Provider Diagnosis [address] [id number] 09/24/2024 FARNAZ VASQUEZ Plan Of Treatment Next Appt Details Provider Name:BOUBACAR CHRISTIANSON, 09/23/2025 10:30:00 AM, [address] [place] [address], [phone], Progress Notes * ORQUIDEA JARVISOB: [birth year] (75 yo F)Acc No.[id number]:09/24/2024 Patient: Viv LIZZY HOWARD Provider: Marquise VASQUEZ :1950 A ge:74 Y S ex:Female Date:09/24/2024 Address:[address] [place] [address], [id number] Subjective: * Chief Complaints: * * General care Billing Information: * Procedure Codes: * Electronic signature of ARY VASQUEZ DPM on 09/15/2025 at 05:13 PM ALCOHOL STILL OPERATOR Sign off status: Pending * Provider: Marquise VASQUEZ Date: 11/25/2023 Generated for Rianna rich/Gilberto/Ana Maria on: 1 11/16/2024 05:13 PM ALCOHOL STILL OPERATOR
--- OUTSIDE RECORDS SUMMARY | 2024-10-01 03:50 | XMS_ITS ---
Author Organization [facility] Address [address] [place], [place] [id number] Care Team Providers Care Solution Strategist Name Role Phone BOUBACAR SPENCER Unavailable [phone] James Candelaria Unavailable Unavailable FARNAZ VASQUEZ Unavailable [phone] Allergies Allergen (clinical drug ingredient) Drug/Non Drug Allergy documented on EMR Reaction Allergy Type Onset Date Status Tape Unknown Allergy Active REASON FOR VISIT *General care Medications Medication SIG (Take, Route, Frequency, Duration) Notes Start Date End Date Status Furosemide 20 MG Tablet Oral; Duration: 30 Days Active Icosapent Ethyl 1 GM Capsule Oral; Duration: 30 Days Active OneTouch Verio - Strip In Vitro; Duratio n: 100 Days Active Pantoprazole Sodium 40 MG Tablet Delayed Release Oral; Duration: 30 Days Active Atorvastatin Calcium 80 MG Tablet Oral; Duration: 90 Days Acti ve Brilinta 90 MG Tablet Oral; Duration: 30 Days Active Calcitriol 0.25 MCG Capsule Oral; Duration: 28 Days Active Nitroglycerin 0.4 MG Tablet Sublingual Sublingual; Duration: 8 Days Active Metoprolol Tartrate 25 MG Tablet Oral; Duration: 90 Days Acti ve Potassium Citrate ER 10 MEQ (1080 MG) Tablet Extended Release Oral; Duration: 30 Days Acti ve TRUEplus 5-Bevel Pen [place]ort[place] 31G X 8 MM Miscellaneous ; Duration: 33 Days Active HumuLIN R U-500 KwikPen 500 UNIT/ML Solution Pen-injector Subcutaneous; Duration: 24 Days Active Encounters Encounter Location Date Provider Diagnosis [facility] [address] [place], [place] [id number] 10/01/2024 FARNAZ VASQUEZ Xerosis cutis L85.3 ; Tinea unguium B35.1 ; Unspecified atherosclerosis of viejas arteries of extremities, bilateral legs I70.203 ; Pain in right toe(s) M79.674 ; Pain in left toe(s) M79.675 ; Type 2 diabetes mellitus with diabetic peripheral angiopathy without gangrene E11.51 ; Acquired keratosis [keratoderma] palmaris et plantaris L85.1 ; Pain in right foot M79.671 and Pain in left foot M79.672 Assessments Encounter Date Diagnosis (ICD Code) Assessment Notes Treatment Notes Treatment Clinical Notes Section Notes 10/01/2024 Xerosis cutis (ICD-10 - L85.3) The patient was educated regarding proper hydration of their feet/ankles and the patient was given several recommendations for proper creams to protect/hydrate and keep the area healthy. Continue with use of lotion to be applied to feet daily. 10/01/2024 Tinea unguium (ICD-10 - B35.1) Aseptic debridement of elongated thickened nails x 10 using sterile nippers, nails were debrided in length and thickness by 30% utilizing a nail nipper without incident. The patient was educated regarding all treatment options that include topical and oral antifungal treatments. I discussed the options of taking a sample of the nail to confirm diagnosis. Nail clippings were not sent for pathology analysis. The patient was educated why and how the fungal infection evolved in their feet and the patient was given information regarding how to prevent further infection. The patient was told to keep feet dry and change socks. The patient was told to be careful with old shoes and excessive sweating. The patient was educated regarding both OTC and prescription treatments. 10/01/2024 Unspecified atherosclerosis of viejas arteries of extremities, bilateral legs (ICD-10 - I70.203) Patient educated on risks and aggravating factors of PVD, including conservative treatment options such as a diet and exercise regimen to aid in slowing progression of vascular disease 10/01/2024 Pain in right toe(s) (ICD-10 - M79.674) 10/01/2024 Pain in left toe(s) (ICD-10 - M79.675) 10/01/2024 Type 2 diabetes mellitus with diabetic peripheral angiopathy without gangrene (ICD-10 - E11.51) Patient educated on proper diabetic foot care and the importance of tight glycemic control in regards to the prevention of diabetic manifestations and symptomatology in lower extremity. Explained to patient the importance of keeping interdigital spaces dry, not walking bare foot, having supportive shoe gear, using moisturizer to skin on feet daily especially in winter months, and checking feet daily for any new lesions or areas suspicious of trauma infection or ulceration. Explained to patient to return to ED if any change in foot health associated with signs of systemic infection including but not limited to nausea, vomiting, fever. 10/01/2024 Acquired keratosis [keratoderma] palmaris et plantaris (ICD-10 - L85.1) Pre-ulcerative keratoderma debrided sharply down to the level of healthy tissue using a 15 blade. After removal of overlying extensive hyperkeratosis, healthy tissue was noted and care was taken to assure that no undermining or probing was present. It should be noted that no probing was noted and no infection or drainage was noted. 10/01/2024 Pain in right foot (ICD-10 - M79.671) 10/01/2024 Pain in left foot (ICD-10 - M79.672) Plan Of Treatment Treatment Notes Assessment Notes Xerosis cutis The patient was educ ated regarding proper hydration of their feet/ankles and the patient was given several recommendations for proper creams to protect/hydrate and keep the area healthy. Continue with use of lotion to be applied to feet daily. Tinea unguium Aseptic debridement of elongated thickened nails x 10 using sterile nippers, nails were debrided in length and thickness by 30% utilizing a nail nipper without incident. The patient was educated regarding all treatment options that include topical and oral antifungal treatments. I discussed the options of taking a sample of the nail to confirm diagnosis. Nail clippings were not sent for pathology analysis. The patient was educated why and how the fungal infection evolved in their feet and the patient was given information regarding how to prevent further infection. The patient was told to keep feet dry and change socks. The patient was told to be careful with old shoes and excessive sweating. The patient was educated regarding both OTC and prescription treatments. Unspecified atherosclerosis of viejas arteries of extremities, bilateral legs Patient educated on risks and aggravating factors of PVD, including conservative treatment options such as a diet and exercise regimen to aid in slowing progression of vascular disease Type 2 diabetes mellitus wit h diabetic peripheral angiopathy without gangrene Patient educated on proper diabetic foot care and the importance of tight glycemic control in regards to the prevention of diabetic manifestations and symptomatology in lower extremity. Explained to patient the importance of keeping interdigital spaces dry, not walking bare foot, having supportive shoe gear, using moisturizer to skin on feet daily especially in winter months, and checking feet daily for any new lesions or areas suspicious of trauma infection or ulceration. Explained to patient to return to ED if any change in foot health associated with signs of systemic infection including but not limited to nausea, vomiting, fever. Acquired keratosis [keratode rma] palmaris et plantaris Pre-ulcerative keratoderma debrided sharply down to the level of healthy tissue using a 15 blade. After removal of overlying extensive hyperkeratosis, healthy tissue was noted and care was taken to assure that no undermining or probing was present. It should be noted that no probing was noted and no infection or drainage was noted. Next Appt Details Follow Up: 3 Months, Reason: Provider Name:BOUBACAR CHRISTIANSON, 09/23/2025 10:30:00 AM, [address] [place] [address], [id number], History and Physical Notes * HPI (History of Present Illness) Category Sub-Category Detail Notes Category Not es HPI General care Patient presents to the office for diabetic foot care. Patient states that their nails are thickened, elongated and painful. Patient states that it is aggravated by shoe gear. Onset is gradual., Patient denies taking prescription blood thinners but does take a daily aspirin., Date last seen by Dr. Candelaria was 03/2024., Initials [facility] Examination Category Sub-Category Detail Notes Category Not es Physical Examination Vascular: Dorsalis Pedis pulse noted at 1/4 right foot and 1/4 left foot and Posterior Tibial pulse noted at 1/4 right foot and 1/4 left foot, Capillary refill times noted to be less than three seconds x ten, Temperature gradient noted to be warm to cool to bilateral foot, pedal hair present to bilateral foot and no varicosities are noted Dermatologic: there are no open lesions, no signs of active clinical infection, no erythema noted, no ecchymoses, nails are elongated thickened and dystrophic with subungual debris x ten, diffuse plantar xerosis noted to bilateral foot with no signs of annular scaling noted, hyperkeratotic lesion noted plantar heel bilateral foot Musculoskeletal: there is pain to palpation onto nail plate x ten, no calf pain noted bilaterally, arch height noted at 2/5 non-weight bearing bilaterally, first metatarsophalangeal joint range of motion 30 deg non-weight bearing bilaterally Neurology: protective sensation intact to light touch bilateral digits one through five, vibratory sensation intact to first metatarsophalangeal joint bilaterally Progress Notes * ODILON JARVISKIMIOB: [birth year] (75 yo F)Acc No.[id number]:10/01/2024 Patient: LIZZY ESPINOSA Provider: Marquise VASQUEZ :1950 A ge:74 Y S ex:Female Date:10/01/2024 Address:[address] [place] [address] Subjective: * Chief Complaints: * * General care * HPI: H PI: General care P atient presents to the office for diabetic foot care. Patient states that their nails are thickened, elongated and painful. Patient states that it is aggravated by shoe gear. Onset is gradual., Patient denies taking prescription blood thinners but does take a daily aspirin., Date last seen by Dr. Candelaria was 03/2024., Initials [facility]. * ROS: G eneral / Constitutional: Patient denies w eakness. R espiratory: Patient denies c hronic cough, shortness of breath, sputum production. M usculoskeletal: Patient denies a rthritis, joint stiffness. ? P eripheral Vascular: Patient denies b lanching of skin, cold extremities, decreased sensation in extremities. S kin: Patient complains of d ry skin, fungal nails, nail changes.? N eurologic: Patient denies d izziness, gait abnormality, headache. * Medications: T akingCalcitriol 0.25 MCG Capsule Oral Atorvastatin Calcium 80 MG Tablet Oral Pantoprazole Sodium 40 MG Tablet Delayed Release Oral OneTouch Verio - Strip In Vitro Icosapent Ethyl 1 GM Capsule Oral Furosemide 20 MG Tablet Oral HumuLIN R U-500 KwikPen 500 UNIT/ML Solution Pen-injector Subcutaneous TRUEplus 5-Bevel Pen [place] 31G X 8 MM Miscellaneous Potassium Citrate ER 10 MEQ (1080 MG) Tablet Extended Release Oral Metoprolol Tartrate 25 MG Tablet Oral Nitroglycerin 0.4 MG Tablet Sublingual Sublingual Brilinta 90 MG Tablet Oral Taking Calcitriol 0.25 MCG Capsule Oral Taking Atorvastatin Calcium 80 MG Tablet Oral Taking Pantoprazole Sodium 40 MG Tablet Delayed Release Oral Taking OneTouch Verio - Strip In Vitro Taking Icosapent Ethyl 1 GM Capsule Oral Taking Furosemide 20 MG Tablet Oral Taking HumuLIN R U- 500 KwikPen 500 UNIT/ML Solution Pen-injector Subcutaneous Taking TRUEplus 5-Bevel [place] 31G X 8 MM Miscellaneous Taking Potassium Citrate ER 10 MEQ (1080 MG) Tablet Extended Release Oral Taking Metoprolol Tartrate 25 MG Tablet Oral Taking Nitroglycerin 0.4 MG Tablet Sublingual Sublingual Taking Brilinta 90 MG Tablet Oral * Allergies: T ape Objective: * Examination: P hysical Examination: V ascular: Dorsalis Pedis pulse noted at 1/4 right foot and 1/4 left foot and Posterior Tibial pulse noted at 1/4 right foot and 1/4 left foot, Capillary refill times noted to be less than three seconds x ten, Temperature gradient noted to be warm to cool to bilateral foot, pedal hair present to bilateral foot and no varicosities are noted Dermatologic: there are no open lesions, no signs of active clinical infection, no erythema noted, no ecchymoses, nails are elongated thickened and dystrophic with subungual debris x ten, diffuse plantar xerosis noted to bilateral foot with no signs of annular scaling noted, hyperkeratotic lesion noted plantar heel bilateral foot Musculoskeletal: there is pain to palpation onto nail plate x ten, no calf pain noted bilaterally, arch height noted at 2/5 non-weight bearing bilaterally, first metatarsophalangeal joint range of motion 30 deg non-weight bearing bilaterally Neurology: protective sensation intact to light touch bilateral digits one through five, vibratory sensation intact to first metatarsophalangeal joint bilaterally. Assessment: * Assessment: 1. T inea unguium - B35.1 (Primary) 2 . X erosis cutis - L85.3 ?3. U nspecified atherosclerosis of viejas arteries of extremities, bilateral legs - I70.203? 4. P ain in right toe(s) - M79.674 5 . P ain in left toe(s) - M79.675 6 . T ype 2 diabetes mellitus with diabetic peripheral angiopathy without gangrene - E11.51 7 . A cquired keratosis [keratoderma] palmaris et plantaris - L85.1 8 . P ain in right foot - M79.671 9 . P ain in left foot - M79.672 Plan: * Treatment: 2. X erosis cutis Notes: The patient was educated regarding proper hydration of their feet/ankles and the patient was given several recommendations for proper creams to protect/hydrate and keep the area healthy. Continue with use of lotion to be applied to feet daily. 3. U nspecified atherosclerosis of viejas arteries of extremities, bilateral legs Notes: Patient educated on risks and aggravating factors of PVD, including conservative treatment options such as a diet and exercise regimen to aid in slowing progression of vascular disease ? 4. T ype 2 diabetes mellitus with diabetic peripheral angiopathy without gangrene Notes: Patient educated on proper diabetic foot care and the importance of tight glycemic control in regards to the prevention of diabetic manifestations and symptomatology in lower extremity. Explained to patient the importance of keeping interdigital spaces dry, not walking bare foot, having supportive shoe gear, using moisturizer to skin on feet daily especially in winter months, and checking feet daily for any new lesions or areas suspicious of trauma infection or ulceration. Explained to patient to return to ED if any change in foot health associated with signs of systemic infection including but not limited to nausea, vomiting, fever. 5. A cquired keratosis [keratoderma] palmaris et plantaris Notes: Pre-ulcerative keratoderma debrided sharply down to the level of healthy tissue using a 15 blade. After removal of overlying extensive hyperkeratosis, healthy tissue was noted and care was taken to assure that no undermining or probing was present. It should be noted that no probing was noted and no infection or drainage was noted. * Follow Up: 3 Months Billing Information: * Visit Code: 90450 Office Visit, Est Pt., Level 3. * Procedure Codes: * Electronic signature of ARY VASQUEZ DPM on 09/15/2025 at 05:14 PM SUPERVISOR STITCHING DEPARTMENT Sign off status: Pending * Provider: Marqiuse VASQUEZ Date: 12/02/2023 Generated for Printi ng/Gilberto/Ana Maria on: 1 11/16/2024 05:14 PM SUPERVISOR STITCHING DEPARTMENT
--- OUTSIDE RECORDS SUMMARY | 2025-03-11 05:30 | XMS_ITS ---
Author Organization [facility] Address [address] [place], [place] [id number] Care Team Providers Care Ledge Man Name Role Phone BOUBACAR SPENCER Unavailable [phone] James Candelaria Unavailable Unavailable Allergies Allergen (clinical [...] Duration: 30 Days Active TRUEplus 5-Bevel Pen [place] 31G X 8 MM Miscellaneous ; Duration: [...] 03/11/2025 Encounters Encounter Location Date Provider Diagnosis [address] [id number] 03/11/2025 BOUBACAR SPENCER Tinea unguium B35.1 ; Pain in right toe(s) M79.674 ; Pain in left toe(s) M79.675 ; Atherosclerosis of [place] arteries of extremities with intermittent claudication, bilateral [...] toe(s) (ICD-10 - M79.675) 03/11/2025 Atherosclerosis of [place] arteries of extremities with intermittent claudication, bilateral [...] develop. Provider Name:BOUBACAR CHRISTIANSON, 09/23/2025 10:30:00 AM, [address] [place] [address], [id number], History and Physical Notes * HPI (History [...] * ORQUIDEA JARVISOB: [birth year] (75 yo F)Acc No.[id number]:03/11/2025 Patient: ALLEN ESPINOSADORA Provider: Rosetta SPENCER :1950 A ge:74 Y S ex:Female Date:03/11/2025 Address:[address] [place], [place] [id number] Subjective: * Chief Complaints: * * General [...] UNIT/ML Solution Pen-injector Subcutaneous TRUEplus 5-Bevel Pen [place] 31G X 8 MM Miscellaneous Potassium Citrate [...] Solution Pen-injector Subcutaneous Taking TRUEplus 5-Bevel Pen [place] 31G X 8 MM Miscellaneous Taking Potassium [...] - M79.675 4 . A therosclerosis of [place] arteries of extremities with intermittent claudication, bilateral [...] problems develop.) Billing Information: * Procedure Codes: 04804 DEBRIDE NAIL, 6 OR MORE. Modifiers: Q8 * Electronic signature of ALLI SPENCER DPM on 09/15/2025 at 05:32 PM SEAT COVERS TRIMMER Sign off status: Pending * Provider: Rosetta SPENCER Date: 0 03/11/2025 Generated for Rianna rich/Gilberto/Rosemaryitting on: 1 11/16/2024 05:32 PM SEAT COVERS TRIMMER
--- OUTSIDE RECORDS SUMMARY | 2025-05-13 05:20 | XMS_ITS ---
Author Organization [facility] Address [address] [place], [place] [id number] Care Team Providers Care Superintendent Distribution Name Role Phone BOUBACAR SPENCER Unavailable [phone] James Candelaria Unavailable Unavailable Allergies Allergen (clinical drug ingredient) Drug/Non Drug Allergy documented on EMR Reaction Allergy Type Onset Date Status Tape Unknown Allergy Active REASON FOR VISIT *General care Medications Medication SIG (Take, Route, Frequency, Duration) Notes Start Date End Date Status Potassium Citrate ER 10 MEQ (1080 MG) Tablet Extended Release Oral; Duration: 30 Days Acti ve TRUEplus 5-Bevel Pen [place] 31G X 8 MM Miscellaneous ; Duration: 33 Days Active Metoprolol Tartrate 25 MG Tablet Oral; Duration: 90 Days Acti ve Brilinta 90 MG Tablet Oral; Duration: 30 Days Active Nitroglycerin 0.4 MG Tablet Sublingual Sublingual; Duration: 8 Days Active Pantoprazole Sodium 40 MG Tablet Delayed Release Oral; Duration: 30 Days Active Icosapent Ethyl 1 GM Capsule Oral; Duration: 30 Days Active OneTouch Verio - Strip In Vitro; Duratio n: 100 Days Active HumuLIN R U-500 KwikPen 500 UNIT/ML Solution Pen-injector Subcutaneous; Duration: 24 Days Active Furosemide 20 MG Tablet Oral; Duration: 30 Days Active Atorvastatin Calcium 80 MG Tablet Oral; Duration: 90 Days Acti ve Calcitriol 0.25 MCG Capsule Oral; Duration: 28 Days Active Social History Social History Additional Details Category Social Info Options Details Migrated Social History Migrated Social History Smoking Status : Former tobacco user , History of tobacco use : Vital Signs Height 66.00 in 05/13/2025 Weight 250 lbs 05/13/2025 BMI 40.35 kg/m2 05/13/2025 Height-cm 167.64 cm 05/13/2025 Weight-kg 113.4 kg 05/13/2025 Encounters Encounter Location Date Provider Diagnosis [address] [id number] 05/13/2025 BOUBACAR SPENCER Tinea unguium B35.1 ; Pain in right toe(s) M79.674 ; Pain in left toe(s) M79.675 ; Atherosclerosis of [place] arteries of extremities with intermittent claudication, bilateral legs I70.213 ; Type 2 diabetes mellitus with other circulatory complications E11.59 and Acquired keratoderma L85.1 Assessments Encounter Date Diagnosis (ICD Code) Assessment Notes Treatment Notes Treatment Clinical Notes Section Notes 05/13/2025 Tinea unguium (ICD-10 - B35.1) NAIL DEBRIDEMENT: Nails 1-5 Bilateral were debrided extensively with nail nippers and emery board, reducing length and girth to pink healthy tissue with any subungual debris and necrotic tissue removed 05/13/2025 Pain in right toe(s) (ICD-10 - M79.674) 05/13/2025 Pain in left toe(s) (ICD-10 - M79.675) 05/13/2025 Atherosclerosis of [place] arteries of extremities with intermittent claudication, bilateral legs (ICD-10 - I70.213) Patient educated on risks and aggravating factors of PVD, including conservative treatment options such as a diet and exercise regimen to aid in slowing progression of vascular disease. Check and protect LE bilateral daily. Call if any changes or concerns. 05/13/2025 Type 2 diabetes mellitus with other circulatory complications (ICD-10 - E11.59) Diabetic Foot Care: The patient was educated on diabetes and the lower extremity. The patient was instructed to check his feet daily to report any problems or signs of infection immediately. Check and protect LE bilateral daily. Call if any changes or concerns. 05/13/2025 Acquired keratoderma (ICD-10 - L85.1) Hyperkeratosis x2: The skin was prepped with isopropyl alcohol. Using a 15-blade scalpel, the hyperkeratotic skin lesions were sharply debrided down to healthy appearing skin. Plan Of Treatment Treatment Notes Assessment Notes Tinea unguium NAIL DEBRIDEMENT: Na ils 1-5 Bilateral were debrided extensively with nail nippers and emery board, reducing length and girth to pink healthy tissue with any subungual debris and necrotic tissue removed Atherosclerosis of [place] ar teries of extremities with intermittent claudication, bilateral legs Patient educated on risks and aggravatin g factors of PVD, including conservative treatment options such as a diet and exercise regimen to aid in slowing progression of vascular disease. Check and protect LE bilateral daily. Call if any changes or concerns. Type 2 diabetes mellitus wit h other circulatory complications Diabetic Foot Care: The patient was educated on diabetes and the lower extremity. The patient was instructed to check his feet daily to report any problems or signs of infection immediately. Check and protect LE bilateral daily. Call if any changes or concerns. Acquired keratoderma Hyperkeratosis x2: The skin was prepped with isopropyl alcohol. Using a 15-blade scalpel, the hyperkeratotic skin lesions were sharply debrided down to healthy appearing skin. Next Appt Details Follow Up: 10 - 12 weeks, Re ason: At-Risk Foot care, sooner if problems develop. Provider Name:BOUBACAR CHRISTIANSON, 09/23/2025 10:30:00 AM, [address] [place] [address], [phone], History and Physical Notes * HPI (History [...] Date last seen by Dr. Candelaria was 02/2025., Initials nd Examination Category Sub-Category Detail Notes Category Not es Dermatologic Skin findings: Skin is thin, at rophic and lacking pedal hair Nail pathology: Nails 1, 2, 3, 4, an d 5 bilateral are elongated, thick, discolored, and dystrophic with subungual debris. They are painful to palpation Hypertrophic / hyperkeratotic lesion: bi lateral, lateral distal nail edges with mild pain Neurologic Gross sensation Grossly intact t o [...] in bilateral lower extremities Progress Notes * ODILON JARVISEEDOB: [birth year] (75 yo F)Acc No.[id number]:05/13/2025 Patient: LIZZY ESPINOSA Provider: Rosetta SPENCER :1950 A ge:74 Y S ex:Female Date:05/13/2025 Address:[address] [place] [address] Subjective: * Chief Complaints: * * General [...] Date last seen by Dr. Candelaria was 02/2025., Initials nd. * ROS: G eneral / Constitutional: Patient [...] confusion, dizziness, difficulty speaking. * Medical History: Denies Past Medical History * Surgical History: Denies Past Surgical History. Surgical History verified. * Hospitalization/Major Diagno stic Procedure: Denies Past Hospitalization. Hospitalization Verified. * Family History: F ather: PRN - Father: :: Cancer,,known absent . M other: PRN - Mother: :: Cancer,,known absent . B rother: SIB - Brother: :: Heart disease,,known absent . F amily History Verified..? * Social History: M igrated Social History: [...] UNIT/ML Solution Pen-injector Subcutaneous TRUEplus 5-Bevel Pen [place] 31G X 8 MM Miscellaneous Potassium Citrate [...] Solution Pen-injector Subcutaneous Taking TRUEplus 5-Bevel Pen [place] 31G X 8 MM Miscellaneous Taking Potassium Citrate ER 10 MEQ (1080 MG) Tablet Extended Release Oral Taking Metoprolol Tartrate 25 MG Tablet Oral Taking Nitroglycerin 0.4 MG Tablet Sublingual Sublingual Taking Brilinta 90 MG Tablet Oral Medication List reviewed and reconciled with the patient * Allergies: T apeyesAllergies Verified. Objective: * Vitals: W t: 250 lbs, Wt-k.4 kg, Ht: 66.00 in, Ht-cm: 167.64 cm, BMI: 40.35 Index, Body Surface Area: 2.3. * Examination: P hysical Examination: General appearance: A lert, pleasant, well-nourished and in no acute distress. D ermatologic: Skin findings: S kin is thin, atrophic and lacking pedal hair. Hypertrophic / hyperkeratotic lesion: b ilateral, lateral distal nail edges with mild pain. Nail pathology: N ails 1, 2, 3, [...] - M79.675 4 . A therosclerosis of [place] arteries of extremities with intermittent claudication, bilateral legs - I70.213 5 . T ype 2 diabetes mellitus with other circulatory complications - E11.59 6 .?Acquired keratoderma - L85.1 Plan: * Treatment: 2. A therosclerosis of [place] arteries of extremities with intermittent claudication, bilateral legs Notes: Patient educated on risks and aggravating factors of PVD, including conservative treatment options such as a diet and exercise regimen to aid in slowing progression of vascular disease. Check and protect LE bilateral daily. Call if any changes or concerns. 3. T ype 2 diabetes mellitus with other circulatory complications Notes: Diabetic Foot Care: The patient was educated on diabetes and the lower extremity. The patient was instructed to check his feet daily to report any problems or signs of infection immediately.? Check and protect LE bilateral daily. Call if any changes or concerns. 4. A cquired keratoderma Notes: Hyperkeratosis x2: The skin was prepped with isopropyl alcohol. Using a 15-blade scalpel, the hyperkeratotic skin lesions were sharply debrided down to healthy appearing skin. * Procedure Codes: 1 1056 TRIM SKIN LESIONS, 2 TO 4, Modifiers: Q8 10913 DEBRIDE NAIL, 6 OR MORE, Modifiers: 59 , Q8 * Follow Up: 1 0 - 12 weeks (Reason: At-Risk Foot care, sooner if problems develop.) Billing Information: * Procedure Codes: 46346 TRIM SKIN LESIONS, 2 TO 4. Modifiers: Q8 19148 DEBRIDE NAIL, 6 OR MORE. Modifiers: 59, Q8 * Electronic signature of ALLI SPENCER DPM on 09/15/2025 at 05:14 PM POWER AND RECOVERY SUPERINTENDENT Sign off status: Pending * Provider: Rosetta SPENCER Date: 0 05/13/2025 Generated for Rianna rich/Gilberto/Ana Maria on: 1 11/16/2024 05:14 PM POWER AND RECOVERY SUPERINTENDENT
--- OUTSIDE RECORDS SUMMARY | 2025-07-15 04:30 | XMS_ITS ---
Author Organization [facility] Address [address] [place], [place] [id number] Care Team Providers Care Roof Technician Name Role Phone BOUBACAR SPENCER Unavailable [phone] James Candelaria Unavailable Unavailable Allergies Allergen (clinical drug ingredient) Drug/Non Drug Allergy documented on EMR Reaction Allergy Type Onset Date Status Tape Unknown Allergy Active REASON FOR VISIT *General care Medications Medication SIG (Take, Route, Frequency, Duration) Notes Start Date End Date Status Atorvastatin Calcium 80 MG Tablet Oral; Duration: 90 Days Acti ve Pantoprazole Sodium 40 MG Tablet Delayed Release Oral; Duration: 30 Days Active OneTouch Verio - Strip In Vitro; Duratio n: 100 Days Active Calcitriol 0.25 MCG Capsule Oral; Duration: 28 Days Active Brilinta 90 MG Tablet Oral; Duration: 30 Days Active HumuLIN R U-500 KwikPen 500 UNIT/ML Solution Pen-injector Subcutaneous; Duration: 24 Days Active TRUEplus 5-Bevel Pen [place] 31G X 8 MM Miscellaneous ; Duration: 33 Days Active Potassium Citrate ER 10 MEQ (1080 MG) Tablet Extended Release Oral; Duration: 30 Days Acti ve Metoprolol Tartrate 25 MG Tablet Oral; Duration: 90 Days Acti ve Nitroglycerin 0.4 MG Tablet Sublingual Sublingual; Duration: 8 Days Active Icosapent Ethyl 1 GM Capsule Oral; Duration: 30 Days Active Furosemide 20 MG Tablet Oral; Duration: 30 Days Active Social History Social History Additional Details Category Social Info Options Details Migrated Social History Migrated Social History Smoking Status : Former tobacco user , History of tobacco use : Vital Signs Height 66.00 in 07/15/2025 Weight 250 lbs 07/15/2025 BMI 40.35 kg/m2 07/15/2025 Height-cm 167.64 cm 07/15/2025 Weight-kg 113.4 kg 07/15/2025 Encounters Encounter Location Date Provider Diagnosis [address] [id number] 07/15/2025 BOUBACAR SPENCER Tinea unguium B35.1 ; Pain in right toe(s) M79.674 ; Pain in left toe(s) M79.675 ; Atherosclerosis of kashia arteries of extremities with intermittent claudication, bilateral legs I70.213 ; Acquired keratoderma L85.1 and Type 2 diabetes mellitus with other circulatory complications E11.59 Assessments Encounter Date Diagnosis (ICD Code) Assessment Notes Treatment Notes Treatment Clinical Notes Section Notes 07/15/2025 Tinea unguium (ICD-10 - B35.1) NAIL DEBRIDEMENT: Nails 1-5 Bilateral were debrided extensively with nail nippers and emery board, reducing length and girth to pink healthy tissue with any subungual debris and necrotic tissue removed 07/15/2025 Pain in right toe(s) (ICD-10 - M79.674) 07/15/2025 Pain in left toe(s) (ICD-10 - M79.675) 07/15/2025 Atherosclerosis of kashia arteries of extremities with intermittent claudication, bilateral legs (ICD-10 - I70.213) Patient educated on risks and aggravating factors of PVD, including conservative treatment options such as a diet and exercise regimen to aid in slowing progression of vascular disease. Check and protect LE bilateral daily. Call if any changes or concerns. 07/15/2025 Acquired keratoderma (ICD-10 - L85.1) Hyperkeratosis x2: The skin was prepped with isopropyl alcohol. Using a 15-blade scalpel, the hyperkeratotic skin lesions were sharply debrided down to healthy appearing skin. 07/15/2025 Type 2 diabetes mellitus with other circulatory [...] debris and necrotic tissue removed Atherosclerosis of kashia ar teries of extremities with intermittent claudication, [...] sharply debrided down to healthy appearing skin. Type 2 diabetes mellitus wit h other [...] develop. Provider Name:BOUBACAR CHRISTIANSON, 09/23/2025 10:30:00 AM, [address] [place] [address], [id number], History and Physical Notes * HPI (History of Present Illness) Category Sub-Category Detail Notes Category Not es HPI General care Patient presents to the office for diabetic foot care. Patient states that their nails are thickened, elongated and painful. Patient states that it is aggravated by shoe gear. Onset is gradual.,, Patient denies taking prescription blood thinners but does take a daily aspirin., Date last seen by Dr. Candelaria was March 2025., Initials abHer swelling is down since she got a lazy boy chair Examination Category Sub-Category Detail Notes Category Not [...] * ODILON JARVISEEDOB: [birth year] (75 yo F)Acc No.[id number]:07/15/2025 Patient: LIZZY ESPINOSA Provider: Rosetta SPENCER :1950 A ge:75 Y S ex:Female Date:07/15/2025 Address:[address] [place], [place] [id number] Subjective: * Chief Complaints: * * General care * HPI: H PI: General care P atient presents to the office for diabetic foot care. Patient states that their nails are thickened, elongated and painful. Patient states that it is aggravated by shoe gear. Onset is gradual.,, Patient denies taking prescription blood thinners but does take a daily aspirin., Date last seen by Dr. Candelaria was March 2025., Initials ab H er swelling is down since she got a lazy boy chair. * ROS: G eneral / Constitutional: Patient [...] * Medical History: Denies Past Medical History No Medical History Documented Medical History Verified * Surgical History: Denies Past Surgical History. [...] UNIT/ML Solution Pen-injector Subcutaneous TRUEplus 5-Bevel Pen [place] 31G X 8 MM Miscellaneous Potassium Citrate [...] Solution Pen-injector Subcutaneous Taking TRUEplus 5-Bevel Pen [place] 31G X 8 MM Miscellaneous Taking Potassium [...] - M79.675 4 . A therosclerosis of kashia arteries of extremities with intermittent claudication, bilateral legs - I70.213 5 . A cquired keratoderma - L85.1 6 . T ype 2 diabetes mellitus with other circulatory complications - E11.59 Plan: * Treatment: 2. A therosclerosis of kashia arteries of extremities with intermittent claudication, bilateral legs Notes: Patient educated on risks and aggravating factors of PVD, including conservative treatment options such as a diet and exercise regimen to aid in slowing progression of vascular disease. Check and protect LE bilateral daily. Call if any changes or concerns. 3. A cquired keratoderma Notes: Hyperkeratosis x2: The skin was prepped with isopropyl alcohol. Using a 15-blade scalpel, the hyperkeratotic skin lesions were sharply debrided down to healthy appearing skin. 4. T ype 2 diabetes mellitus with other circulatory complications Notes: Diabetic Foot Care: The patient was educated on diabetes and the lower extremity. The patient was instructed to check his feet daily to report any problems or signs of infection immediately.? Check and protect LE bilateral daily. Call if any changes or concerns. * Preventive Medicine: Screenings: F all risk screening F all Risk Assessment: N o falls in the past year. * Follow Up: 1 0 - 12 weeks (Reason: At-Risk Foot care, sooner if problems develop.) Billing Information: * Visit Code: 76686 Office Visit, Est Pt., Level 3. * Procedure Codes: * Electronic signature of ALLI SPENCER DPM on 09/15/2025 at 05:13 PM B AND B GANG WORKER Sign off status: Pending * Provider: Rosetta SPENCER Date: 1 Generated for Rianna rich/Gilberto/Ana Maria on: 11/16/2024 05:13 PM B AND B GANG WORKER
[2025-09-15] VITALS (32 sets, daily range): BP systolic 131–191; BP diastolic 68–102; PULSE 66–117; RESP 15–34; TEMP 36.3–36.6; O2SAT 93–100
--- NOTE | ~2025-09-15 | XR_ITS ---
EXAMINATION: XR chest 1V portable COMPARISON: No comparisons available. HISTORY: sob FINDINGS: Mild pulmonary venous congestion. No pneumothorax. Mild cardiomegaly. Mediastinal and hilar contours are within normal limits. Bony thorax no acute abnormality. Miscellaneous: None Impression: Mild CHF Reviewed, dictated and finalized at location P. CISE PHYSIOLOGIST Impression: Mild CHF
--- NOTE | 2025-09-15 16:58 | ECG_ITS ---
Test Date: 2025-09-15 17:15:47 Measurements Intervals [place] Rate: 106 P: 26 OR: 174 QRS: -33 QRSD: 91 T: 78 QT: 350 QTc: 465 Interpretive Statements SINUS TACHYCARDIA DELAYED PRECORDIAL R/S TRANSITION LEFT VENTRICULAR HYPERTROPHY AND ST-T CHANGE INFERIOR INFARCT, AGE INDETERMINATE BASELINE WANDER- I, III ABNORMAL ECG Compared to ECG 03/21/2025 15:32:23 HEART RATE HAS INCREASED Electronically Signed On 09-15-2025 19:33:05 MANIFEST/ORDER ORGANIZER PRINT ORDERS by Titi Oviedo D.O.
--- NOTE | 2025-09-15 17:03 | ED.FALL ---
HPI - Fall General Chief Complaint: Fall Stated Complaint: fall/diarrhea Time Seen by Provider: 09/15/25 16:58 Source: patient Mode of arrival: EMS Limitations: no limitations History of Present Illness HPI Narrative: Patient is 75-year-old female with a mechanical fall yesterday around 3:00 p.m. and stayed on the floor until today found by family. Patient did not hit her head or neck and will not allow CT scan. Patient is AAO x4. complaint: fall Onset (ago): day(s) (Two) Fall from: standing Fall witnessed: no Place fall occurred: home Loss of consciousness: none Prolonged down time: yes and day(s) (1) Symptoms prior to fall: none Context: tripped/slipped Severity: mild Severity scale (1-10): 1 Quality: burning Associated symptoms (after fall): denies Related Data Home Medications ?Medication ?Instructions ?Recorded ?Confirmed ?Last Taken ?Type pantoprazole 40 mg tablet,delayed 40 mg PO HS 01/07/20 08/31/25 04/09/22 History release atorvastatin 80 mg tablet 80 mg PO HS 08/24/20 08/31/25 04/09/22 History cholecalciferol (vitamin D3) 50 50 mcg PO HS 02/15/21 08/31/25 04/09/22 History mcg (2,000 unit) capsule aspirin 81 mg tablet,delayed 81 mg PO DAILY 12/13/23 08/31/25 Unknown History release (Adult Aspirin Regimen) clopidogrel 75 mg tablet 75 mg PO DAILY 03/21/25 08/31/25 Unknown History nitroglycerin 0.4 mg sublingual 0.4 mg sublingual Q5M 03/21/25 08/31/25 Unknown History tablet metoprolol tartrate 50 mg tablet 50 mg PO BID 08/31/25 08/31/25 Unknown History Allergies Allergy/AdvReac Type Severity Reaction Status Date / Time hydrocodone Allergy Severe rash Verified 09/15/25 17:05 adhesive tape Allergy Unknown rash Verified 09/15/25 17:05 cefdinir Allergy Unknown rash Verified 09/15/25 17:05 peach Allergy Unknown Anaphylactic Verified 09/15/25 17:05 Shock,throat closes,throat closes,Anaphylactic prochlorperazine Allergy Unknown Verified 09/15/25 17:05 adhesive AdvReac Intermediate TAPE= RASH Verified 09/15/25 17:05 DYE USED FOR CLOTHING Allergy Unknown SWELLING, Uncoded 08/31/25 13:20 INFECTION FROM DYE Review of Systems Review of Systems: All systems reviewed & are unremarkable except as noted in HPI and below Constitutional: Constitutional: Reports no additional constitutional complaints Eyes: Eyes: Reports no additional eye complaints ENT: Reports system reviewed and no additional complaints, except as documented Cardiovascular: Cardiovascular: Reports no additional cardiovascular complaints Respiratory: Respiratory: Reports no additional respiratory complaints Gastrointestinal: Gastrointestinal: Reports no additional gastrointestinal complaints Genitourinary: Genitourinary: Reports no additional female genitourinary complaints Musculoskeletal: Musculoskeletal: Reports no additional musculoskeletal complaints Integumentary/Breasts: Skin/Breast: Reports system reviewed and no additional complaints, except as docu Neurologic: Reports system reviewed and no additional complaints, except as documented Psychiatric: Psychiatric: Reports no additional psychiatric complaints Endocrine: Endocrine: Reports no additional endocrine complaints Hematologic/Lymphatic: Hematologic/Lymphatic: Reports no additional hematologic/lymphatic complaints Allergic/Immunologic: Allergic/Immunologic: Reports no additional allergic/immunologic complaints [facility] Past Medical History Medical History History of left heart catheterization Chronic obstructive pulmonary disease Per patient report she had PFTs done in [place] however if she saw the manager small business here who stated he did not see any signs and symptoms of COPD and that the patient refused to have a PFT or obstructive sleep studies performed. Insulin dependent type 2 diabetes mellitus Coronary artery disease Chronic kidney disease, stage 4 (severe) Cancer of left breast Status post lumpectomy and chemoradiation. Gastroesophageal reflux disease Morbid (severe) obesity due to excess calories Type 2 diabetes mellitus with diabetic chronic kidney disease Cholelithiasis Kidney stone Hypertension Arthritis Surgical History Surgical History History of wisdom tooth extraction History of heart artery stent History of bilateral cataract extraction History of lumpectomy of left breast History of extraction of renal calculus Family History Family History Mother Family history of diabetes mellitus in first degree relative Cancer CHF (congestive heart failure), NYHA class I Diabetes mellitus Family history of cardiovascular disease Family history of congestive heart failure Family history of hearing loss Family history of heart disease in male family member before age 55 Heart disease Family history of thyroid disease Thyroid disease Hypertension Father Cancer CHF (congestive heart failure), NYHA class I Family history of arthritis Family history of cardiovascular disease Family history of congestive heart failure Family history of hearing loss Family history of heart disease in male family member before age 55 Heart disease Family history of obesity Sibling CHF (congestive heart failure), NYHA class I Other Family history of malignant neoplasm Social History Social History Social History: 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ion maker: Epi Falk, son. Code status: Full code. Smoking packs per day: 1 Smoking cigarettes per day: 20.0 Years smoked: 10 Smoking pack-years: 10.00 Smoking status: Former smoker Tobacco type: cigarettes Second hand tobacco smoke exposure: No Alcohol intake: never Alcohol use details: once a month Substance use: never Substance use type: does not use Lack of Transportation: No Lack of Food: Never True Current Housing: I Have Housing Concerned About Future Housing: No Difficulty Paying Gas/Electric Bills: No Difficulty Paying for Meds: No Currently Unemployed: No Education: Associate Degree Difficulty w/ Childcare or Family Care: No Living arrangements: with family Additional living arrangements comments: Lives in [place]. 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 Gender identity (if verbalized by the patient): Female Spiritual care concerns: No Exam Const: General: healthy appearing Nutritional Appearance: well nourished Orientation/consciousness: patient oriented x3 Limitations: no limitations HENMT: Head: normal to inspection Ears: external ears normal Face/Nose/Sinus: Normal external nose present Face and sinus: normal facial exam Eyes: Conjunctivae: conjunctivae normal Pupils: Equal, round and reactive pupils present EOM: EOMs intact bilaterally Neck: Neck: normal visual inspection and no lymphadenopathy Chest: Chest palpation & inspection: normal inspection of the chest and abnormal inspection of the chest Resp: Effort & Inspection: normal respiratory effort and not labored Auscultation: clear to auscultation bilaterally and no crackles Cardio: Rate: regular rate Rhythm: regular rhythm Heart sounds: no murmurs GI: Inspection: non-distended GI Palp: Yes Soft to palpation and No Tenderness to palpation present (GI) Auscultation: normal bowel sounds : General: Yes bladder normal to palpation Back/Spine/Pelvis: Back: no CVA tenderness Skin: General skin exam: normal color Rashes: no rashes Wounds: no wounds Neuro: General: patient oriented x3, moves all extremities, no meningeal signs, no focal motor deficits and CN's II-XI intact bilaterally Cranial nerves: Yes Nystagmus not present Speech: normal speech Extrem: General: normal to inspection and no clubbing, cyanosis or edema Psych: Mental Status: mental status grossly normal Affect: normal affect Attitude: cooperative Course Vital Signs Vital signs: Vital Signs Pulse Oximetry 100 09/15/25 16:33 Temperature 36.6 C 09/15/25 16:59 Pulse Rate 79 09/15/25 18:37 Respiratory Rate 15 09/15/25 18:37 Blood Pressure 156/94 H 09/15/25 18:37 Pulse Oximetry 95 09/15/25 18:37 Oxygen Delivery Room Air 09/15/25 17:28 [facility] Narrative Medical decision making narrative: Patient is a 75-year-old female with a fall yesterday and was found this morning on the floor. She has known kidney disease. We will do a workup at this time. Make sure sepsis is ruled out. She did not want the head or neck scan per her own wishes. She is AAO x4. Significant UTI found. Zosyn started. She said she can not take penicillins. Differential Diagnosis Differential Diagnosis: Fall with injuries Lab Data [facility] Lab Attestation statement: I personally reviewed the patient's lab results. 09/15/25 17:28 09/15/25 17:28 Labs: Lab Results 09/15/25 09/15/25 Range/Units 17:28 18:33 WBC 10.3 (4.8-10.8) K/mm3 RBC 5.82 H (4.20-5.40) M/mm3 Hgb 16.2 H (11.7-13.8) g/dL Hct 49.5 H (35.0-42.0) % MCV 85.1 (78.0-102.0) fL MCH 27.8 (27.0-31.0) pg MCHC 32.7 (32-36) g/dL RDW 14.9 H (11.6-14.4) % Plt Count 221 (150-420) K/mm3 MPV 11.6 (9.2-11.8) fl Immature Gran % (Auto) 0.4 H (0.0-0.0) % Neut % (Auto) 83.4 H (50.0-70.0) % Lymph % (Auto) 6.5 L (18.0-42.0) % Garrett % (Auto) 8.8 (2.0-11.0) % Eos % (Auto) 0.3 L (1.0-6.0) % Baso % (Auto) 0.6 (0.0-1.0) % Lymph # (Auto) 0.67 L (1.10-4.50) K/mm3 Garrett # (Auto) 0.90 (0.10-0.90) K/mm3 Eos # (Auto) 0.03 (0.02-0.50) K/mm3 Baso # (Auto) 0.06 (0.00-0.10) K/mm3 Abs Immat Gran (auto) 0.04 H (0.00-0.00) K/mm3 Absolute Neuts (auto) 8.57 H (1.70-7.20) K/mm3 Absolute Nucleated RBC 0.00 (0.00-0.00) K/mm3 Nucleated RBC % 0.0 (0-0.0) % Sodium 146 H (137-145) mmol/L Potassium 3.5 (3.4-5.0) mmol/L Chloride 106 (98-107) mmol/L Carbon Dioxide 15 L (22-30) mmol/L Anion Gap 25 H (4-12) mmol/L BUN 77 H D (7-17) mg/dL Creatinine 6.90 H (0.7-1.0) mg/dL Estim Creat Clear Calc 8 ml/min Estimated GFR 6 L (59 - ) Glucose 223 H (65-110) mg/dL Calculated Osmolality 332 H (285-295) mOsm/kg Lactic Acid 2.0 (0.7-2.0) mmol/L Calcium 9.5 (8.4-10.2) mg/dL Total Bilirubin 0.8 (0.2-1.3) mg/dL AST 627 H (14-36) U/L ALT 131 H (6-35) U/L Alkaline Phosphatase 105 (38-126) U/L Total Creatine Kinase > 1600 H (30-135) U/L Troponin I 0.127 H* (0.000-0.034) ng/mL Total Protein 8.3 H (6.3-8.2) g/dL Albumin 4.5 (3.5-5.1) g/dL Lipase 454 H (23-300) U/L Urine Color Zayra A (Yellow) Urine Appearance Cloudy A (Clear) Urine pH 5.5 (5.0-8.0) Ur Specific [place] >= 1.030 H (1.010-1.020) Urine Protein 3+ H (Negative) Urine Glucose (UA) Negative (Negative) Urine Ketones Negative (Negative) Ur Blood (Man) 3+ H (Negative) Urine Nitrate Positive H (Negative) Urine Bilirubin 2+ H (Negative) Urine Urobilinogen 0.2 (0.2-1.0) mg/dL Leukocyte Esterase Rfl Trace H (Negative) WILLIE/UL Urine RBC None seen (0-2) /hpf Urine WBC 21-50 (0-3) /hpf Ur Squamous Epith Cells Few (Few) /hpf Urine Bacteria 4+ H (None) /hpf Urine Mucus Present /lpf Stool Occult Blood Negative (Negative) C. difficile (PCR) Negative (NEGATIVE) Influenza A (RT-PCR) Negative (Negative) Influenza B (RT-PCR) Negative (Negative) RSV (RT-PCR) Negative (Negative) SARS-CoV-2 RNA (RT-PCR) Negative (Negative) Imaging Data Attestation: I personally reviewed and interpreted this imaging study as follows: Radiologist's impression: ITS Impressions Chest X-Ray 09/15/25 17:40 Impression: Mild CHF Discharge Plan Discharge Clinical Impression: Elevated troponin, Acute UTI, Acute dehydration, Metabolic acidosis Rhabdomyolysis Qualifiers: Rhabdomyolysis type: traumatic Encounter type: initial encounter Qualified Code(s): T79.6XXA - Traumatic ischemia of muscle, initial encounter Acute renal failure Qualifiers: Acute renal failure type: unspecified Qualified Code(s): N17.9 - Acute kidney failure, unspecified Diarrhea Qualifiers: Diarrhea type: unspecified type Qualified Code(s): R19.7 - Diarrhea, unspecified CHF (congestive heart failure) Qualifiers: Heart failure type: unspecified Heart failure chronicity: unspecified Qualified Code(s): I50.9 - Heart failure, unspecified Patient Disposition: Acute Care Hospital Condition: Stable Patient Language: Lithuanian Prescriptions: No Action clopidogrel 75 mg tablet 75 mg PO DAILY nitroglycerin 0.4 mg tablet, sublingual 0.4 mg sublingual Q5M pantoprazole 40 mg tablet,delayed release (DR/EC) 40 mg PO HS atorvastatin 80 mg tablet 80 mg PO HS cholecalciferol (vitamin D3) 50 mcg (2,000 unit) capsule 50 mcg PO HS metoprolol tartrate 50 mg tablet 50 mg PO BID aspirin [Adult Aspirin Regimen] 81 mg tablet,delayed release (DR/EC) 81 mg PO DAILY (DME) lancets [OneTouch Delica Plus Lancet] 33 gauge misc See Rx Instructions .Route Qty: 300 0RF Rx Instructions: As directed 3 times a day furosemide 20 mg tablet See Rx Instructions .ROUTE .COMPLEX Qty: 180 3RF Dose Instruction: TAKE TWO TABLETS BY MOUTH EVERY MORNING Rx Instructions: TAKE TWO TABLETS BY MOUTH EVERY MORNING (DME) pen needle, diabetic [TRUEplus Pen Needle] 31 gauge x 5/16 needle See Rx Instructions .ROUTE .COMPLEX Qty: 300 0RF Dose Instruction: USE TO CHECK BLOOD GLUCOSE 3 TIMES DAILY Rx Instructions: USE TO CHECK BLOOD GLUCOSE 3 TIMES DAILY (DME) blood-glucose meter [Accu-Chek Guide Glucose Meter] [facility] See Rx Instructions .Route Qty: 1 0RF Rx Instructions: use to monitor blood sugars 3 times a day calcitriol 0.25 mcg capsule See Rx Instructions .ROUTE .COMPLEX Qty: 12 6RF Dose Instruction: TAKE ONE CAPSULE BY MOUTH THREE TIMES A WEEK; ADMINISTER/TAKE ON MONDAYS, WEDNESDAYS, AND FRIDAYS Rx Instructions: TAKE ONE CAPSULE BY MOUTH THREE TIMES A WEEK; ADMINISTER/TAKE ON MONDAYS, WEDNESDAYS, AND FRIDAYS Humulin R U-500 (Conc) Kwikpen 500 unit/mL (3 mL) insulin pen See Rx Instructions .ROUTE .COMPLEX MDD 245 Qty: 45 1RF Dose Instruction: INJECT 90 UNITS SUBCUTANEOUSLY WITH BREAKFAST, 50 UNITS WITH LUNCH, AND 80 UNITS WITH SUPPER DAILY Rx Instructions: INJECT 100 UNITS SUBCUTANEOUSLY WITH BREAKFAST, 55 UNITS WITH LUNCH, AND 90 UNITS WITH SUPPER DAILY (DME) Accu-Chek Guide test strips Strip See Rx Instructions .ROUTE .COMPLEX Qty: 100 1RF Dose Instruction: USE THREE TIMES A DAY TO CHECK BLOOD SUGARS Rx Instructions: USE THREE TIMES A DAY TO CHECK BLOOD SUGARS Follow-up/Referrals: James Candelaria DO [Primary Care Provider, [facility]] Time of Disposition: 19:35
--- OUTSIDE RECORDS SUMMARY | 2025-09-15 17:14 | XMS_ITS | Clinical Summary ---
Author Organization [facility] Address [address] [place] [address] Care Team Providers Care Housekeeping Manager Name Role Phone James Candelariah Primary Care Provider Allergies Active Allergy Reactions Criticality Noted Date Comments Adhesive Rash Medium Apricot Anaphylaxis,Rash High 04/23/2022 Other Rash Medium 04/23/2022 Clothing dye [place]kin Anaphylaxis,Rash High 04/23/2022 Prochlorperazine Anaphylaxis High Medications [...] enteric coated tabletIndication s:Coronary artery disease of [place] artery of [place] heart with stable angina pectoris Take 1 [...] 2 diabetes mellitus (HCC),Coronary artery disease involving [place] coronary artery of [place] heart without angina pectoris TAKE ONE TABLET BY MOUTH DAILY 90 tablet 3 5 Active nitroglycerin (Nitrostat) 0.4 mg SL tabletIndication s:Coronary artery disease involving [place] coronary artery of [place]ne[place] heart without angina pectoris Place 1 tablet [...] immediate release tabletIndication s:Coronary artery disease of [place] artery of [place] heart with stable angina pectoris Take 1 [...] unspecified vessel or lesion type, unspecified whether [place] or transplanted heart 04/27/2022 Atypical chest pain 03/20/2022 Morbid (severe) obesity due to excess calories 0 03/20/2022 Body mass index 40.0-44.9, adult ([facility]) 03/20 Morbid obesity 09/12/2021 NIMA (obstructive sleep apnea) 09/12/2021 Proteinuria 07/05/2019 Systolic ejection murmur 06/19/2019 Calculus of kidney 05/29/2017 Coronary artery disease of n ative artery of [place] heart with stable angina pectoris 03/20/2017 Hyperlipidemia [...] GERD (gastroesophageal reflux disease) Hematuria 04/24/2014 Acute [place], inferior wall 04/20/2014 ST elevation myocardial infarction [...] was a mass noted by her primary cafeteria operator at the time of her annual [...] exams. However, the patient is moving to [facility] to be closer to her son and grandchildren. 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 She states she likely will not be following up with this in the future. Pseudophakia 06/22/2011 Encounters Date Type Department Care Team Description 07/06/2025 10:30 AM CDT Office Visit [facility] Cardiology [address] [place] [address] Giovanna Oconnor NP Coronary artery disease of chene[place] artery of [place]ne[place] heart with stable angina pectoris (Primary Dx); Hyperlipidemia associated with type 2 diabetes mellitus (HCC); Preoperative cardiovascular examination 07/02/2025 Telephone [facility] Obstetrics and Gynecology [address] [place] [address] [place] [address] Skylar Cornejo RN 06/25/2025 Telephone [facility] Obstetrics and Gynecology [address] [place] [address] [place] [address] Johanny Abreu RN 06/24/2025 Telephone [facility] Obstetrics and Gynecology [address] [place] [address] [place] [address] Imani Hirsch RN from Last 3 Months Immunizations Immunization Administration [...] unspecified vessel or lesion type, unspecified whether [place]ne[place] or transplanted heart Chronic pain disorder Brain [...] on file Legal Sex Female 3:26 AM HIDE BUFFER Gender Identity Female 05/22/2019 11:23 AM CDT Sexual Orientation Straight 10/24/2021 7: 58 AM HIDE BUFFER Last Filed Vital Signs Vital Sign Reading [...] or Tdap) 12/20/2022 12/20/2012, 09/11/2004 Covid-19 Vaccine (2024-2 6 season) 2025 11/23/2021, 05/03/2021, 05/03/2021, Additional history exists Influenza Vaccine (#1) 2025 , 07/14/2019, 08/18/2016, Additional history exists Fall Risk Assessment 11/02/2025 11/02/2024 Lipid Panel 05/28/2026 05/28/2025, 02/0 05/2024, 03/20/2022, Additional history exists Breast Cancer Screening-Mammogram Discontinued 12/09/2013, 12/09/2013, 12/06/2012 Medical Devices Implanted Type Area Mill Stenciler Device Identifier Shelf Expiration Date Model / Serial / Lot [employer] Resolute Efren 4mm 2.1-2.7fr 18mm 140cm Rapid Exchange Radiopaque [id number] - [id number] Implanted:Qty: 1 on 04/27/2022 by Logan Ceron MD at [facility] [employer] 01/06/2025 [id number] / / [id number] [employer] Resolute [place] 4mm 2.1-2.7fr 18mm 140cm Rapid Exchange Radiopaque [id number] - [id number] Implanted:Qty: 1 on 04/27/2022 by Logan Ceron MD at [facility] [employer] 08/22/2024 [id number] / / [id number] [employer] Angio-Seal Vip 6fr Closere Device [id number] - [id number] Implanted:Qty: 1 on 04/27/2022 by Logan Ceron MD at [facility] [employer] 02/10/2023 [id number] / / [id number] Procedures Procedure Name Priority Date/Time Associated Diagnosis [...] mL/min/1.7 3 m2 [facility] Comment: Interpretive Data Reference Interval Normal >/= 90 mL/min/1.73m2 Mildly decreased* 60 - 89 mL/min/1.73m2 Mildly to moderately decreased 45 - 59 mL/min/1.73m2 Moderately to severely decreased 30 - 44 mL/min/1.73m2 Severely decreased 15 - 29 mL/min/1.73m2 Kidney Failure < 15 mL/min/1.73m2 *Relative to young adult level If -Malaysian multiply value by 1.16. Estimated glomerular filtration [...] ORDERABLES Final Re sult Performing Organization Address City/[facility] [address]/ZIP Co de Phone Number [facility] [address] [place] [address] * (ABNORMAL) Hemoglobin A1c (01/29/2017 12:02 PM CDT) Hgb A1C 11.2(H) 4.0 - 6.0 % [facility] Blood specimen (specimen) 01/29/2017 12:02 PM CDT 01/29/2017 1:45 PM CDT us Will Mcmahon MD LAB BLOOD ORDERABLES Final Re sult Performing Organization Address City/[facility] [address]/ZIP Co de Phone Number [facility] [address] [place] [address] [place] [address] from Last 3 Months or Most Recently Relevant to Health Maintenance Insurance UHC MEDICARE ADVANTAGE UHC MEDICARE ADVANTAGE MEDICARE ADVANTAGE Care Teams Housekeeping Manager Relationship Specialty Start Date End Date James Candelaria DO [address] [place] [address] PCP - General Family Medicine 01/28/24
--- OUTSIDE RECORDS SUMMARY | 2025-09-15 17:14 | XMS_ITS ---
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 History of COVID-19 11/14/2023 Meningioma 11/14/2023 S/P CABG (coronary artery bypass graft) 11/14/19 24 Anemia 05/21/2022 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, unspecified vessel or lesion type, unspecified whether [place] or transplanted heart 04/27/2022 Atypical chest pain 03/20/2022 Morbid (severe) obesity due to excess calories 0 03/20/2022 Body mass index 40.0-44.9, adult ([facility]) 03/20 Morbid obesity 09/12/2021 NIMA (obstructive sleep apnea) 09/12/2021 Proteinuria 07/05/2019 Systolic ejection murmur 06/19/2019 Calculus of kidney 05/29/2017 Coronary artery disease of n ative artery of [place] heart with stable angina pectoris 03/20/2017 Hyperlipidemia [...] GERD (gastroesophageal reflux disease) Hematuria 04/24/2014 Acute [place], inferior wall 04/20/2014 ST elevation myocardial infarction [...] was a mass noted by her primary scalder at the time of her annual gynecological [...] exams. However, the patient is moving to [facility] to be closer to her son [...]
--- OUTSIDE RECORDS SUMMARY | 2025-09-15 17:14 | XMS_ITS | Patient Health Record ---
Author Organization [facility] Address [address] [place], [place] [id number] Care Team Providers Care Powder Coater Name Role Phone BOUBACAR SPENCER Unavailable [phone] James Candelaria Unavailable Unavailable ANDREWCassidy NED Unavailable [phone] FARNAZ VASQUEZ Unavailable [phone] Allergies Allergen (clinical drug ingredient) Drug/Non Drug [...] In Vitro; Duratio n: 100 Days Active Icosapent Ethyl 1 GM Capsule Oral; Duration: 30 Days Active Furosemide 20 MG Tablet Oral; Duration: 30 Days Active HumuLIN R U-500 KwikPen 500 UNIT/ML Solution Pen-injector Subcutaneous; Duration: 24 Days Active TRUEplus 5-Bevel Pen [place] 31G X 8 MM Miscellaneous ; Duration: [...] History of tobacco use : Vital Signs Height-cm 167.64 cm 07/15/2025 Weight-kg 113.4 kg 07/15/2025 Height 66.00 in 07/15/2025 Weight 250 lbs 07/15/2025 BMI 40.35 kg/m2 07/15/2025 Encounters Encounter Location Date Provider Diagnosis [address] [id number] 10/01/2024 FARNAZ VASQUEZ Xerosis cutis L85.3 ; Tinea unguium B35.1 ; Unspecified atherosclerosis of [place]low[place] de[place]-ni' arteries of extremities, bilateral legs I70.203 ; Pain in right toe(s) M79.674 ; Pain in left toe(s) M79.675 ; Type 2 diabetes mellitus with diabetic peripheral angiopathy without gangrene E11.51 ; Acquired keratosis [keratoderma] palmaris et plantaris L85.1 ; Pain in right foot M79.671 and Pain in left foot M79.[address] [id number] 03/11/2025 BOUBACAR GARCIAFORD Tinea unguium B35.1 ; Pain in right toe(s) M79.674 ; Pain in left toe(s) M79.675 ; Atherosclerosis of [place]lowa de[place]-ni' arteries of extremities with intermittent claudication, bilateral legs I70.213 and Type 2 diabetes mellitus with other circulatory complications E11.[address] [id number] 05/13/2025 BOUBACAR JOHANNA Tinea unguium B35.1 ; Pain in right toe(s) M79.674 ; Pain in left toe(s) M79.675 ; Atherosclerosis of [place]low[place] de[place]-ni' arteries of extremities with intermittent claudication, bilateral legs I70.213 ; Type 2 diabetes mellitus with other circulatory complications E11.59 and Acquired keratoderma L85.[address] [id number] 07/15/2025 BOUBACAR SPENCER Tinea unguium B35.1 ; Pain in right toe(s) M79.674 ; Pain in left toe(s) M79.675 ; Atherosclerosis of [place]low[place] dee-ni' arteries of extremities with intermittent claudication, bilateral legs I70.213 ; Acquired keratoderma L85.1 and Type 2 diabetes mellitus with other circulatory complications E11.[address] [id number] 12/17/2024 NED OSHEA Tinea unguium B35.1 ; Pain in right toe(s) M79.674 ; Pain in left toe(s) M79.675 ; Atherosclerosis of [place]low[place] dee-ni' arteries of extremities with intermittent claudication, bilateral legs I70.213 and Type 2 diabetes mellitus with other circulatory complications E11.59 Assessments Encounter Date Diagnosis (ICD Code) Assessment Notes Treatment Notes Treatment Clinical Notes Section Notes 10/01/2024 Tinea unguium (ICD-10 - B35.1) Aseptic [...] in right toe(s) (ICD-10 - M79.674) 07/15/2025 Tinea unguium (ICD-10 - B35.1) NAIL DEBRIDEMENT: Nails 1-5 Bilateral were debrided extensively with nail nippers and emery board, reducing length and girth to pink healthy tissue with any subungual debris and necrotic tissue removed 07/15/2025 Pain in right toe(s) (ICD-10 - M79.674) 07/15/2025 Pain in left toe(s) (ICD-10 - M79.675) 05/13/2025 Pain in left toe(s) (ICD-10 - M79.675) 03/11/2025 Pain in right toe(s) (ICD-10 - M79.674) 12/17/2024 Pain in right toe(s) (ICD-10 - M79.674) 10/01/2024 Unspecified atherosclerosis of tolowa dee-ni' arteries of extremities, bilateral legs (ICD-10 - I70.203) Patient educated on risks and aggravating factors of PVD, including conservative treatment options such as a diet and exercise regimen to aid in slowing progression of vascular disease 10/01/2024 Pain in right toe(s) (ICD-10 - M79.674) 12/17/2024 Pain in left toe(s) (ICD-10 - M79.675) 03/11/2025 Pain in left toe(s) (ICD-10 - M79.675) 05/13/2025 Atherosclerosis of tolowa dee-ni' arteries of extremities with intermittent claudication, bilateral legs (ICD-10 - I70.213) Patient educated on risks and aggravating factors of PVD, including conservative treatment options such as a diet and exercise regimen to aid in slowing progression of vascular disease. Check and protect LE bilateral daily. Call if any changes or concerns. 07/15/2025 Atherosclerosis of tolowa dee-ni' arteries of extremities with intermittent claudication, bilateral [...] sharply debrided down to healthy appearing skin. 03/11/2025 Atherosclerosis of tolowa dee-ni' arteries of extremities with intermittent claudication, bilateral [...] any changes or concerns. 12/17/2024 Atherosclerosis of tolowa dee-ni' arteries of extremities with intermittent claudication, bilateral [...] Of Treatment Next Appt Details Provider Name:BOUBACAR Tonny CHRISTIANSON, 09/23/2025 10:30:00 AM, [address] [place] [address], [phone], Insurance Providers Payer Name Payer Address Payer Phone Subscriber Number Group Number Insured Name Patient Relationship to Insured Coverage Start Date Coverage End Date AARP MedicareCo mplete ([facility]) [address] [place], [place] [id number] LIZZY JARVIS Self - patient is the insured
--- OUTSIDE RECORDS SUMMARY | 2025-09-15 17:14 | XMS_ITS | Clinical Summary ---
Author Organization [facility] Address [address] [place] [address] Care Team Providers Care Cable Inspector Name Role Phone Unavailable Primary Care Provider Unavailabl e Source Comments [facility] [employer],non-owned Affiliates and Associated Physician Practices is amultiple site organization consisting of ambulatory clinics and hospital sitesin [place], [place], [place] and [place]. This disclosure is being madepursuant to the Care Everywhere program and may not contain all information available regarding this patient. 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
--- OUTSIDE RECORDS SUMMARY | 2025-09-15 17:14 | XMS_ITS | Clinical Summary ---
Author Organization [facility] Address [address] [place] [address] Care Team Providers Care Snuff Drier Name Role Phone Unavailable Primary Care Provider Unavailabl e Family History Medical History Relation Name Comments Breast Cancer Neg Hx Social History Tobacco Use Types Packs/Day Years Used Date Smoking Tobacco: Never Assessed Comments Unknown Sex and Gender Information Value Date Recorded Sex Assigned at Not on file Legal Sex Female 2:42 AM PSYCHIATRIC AIDE Gender Identity Not on file Sexual Orientation [...] Influenza Immunization (#1) 2025 SARS-COV-2 Immunization ( season) 2025 Hepatitis B Immunization Aged Out [...] CAD W BONITA Routine 12/09/2013 8:40 AM PSYCHIATRIC AIDE Other screening mammogram from Last 3 Months or Most Recently Relevant to Health Maintenance Results * GARY SCREENING BILATERAL DIGITAL W CAD W BONITA (12/09/2013 8:40 AM PSYCHIATRIC AIDE) Anatomical Region Laterality Modality breast Bilateral Mammography, Oth er 12/09/2013 8:40 AM PSYCHIATRIC AIDE Impressions 12/09/2013 11:35 AM PSYCHIATRIC AIDE IMPRESSION: No evidence of malignancy. ASSESSMENT: Right [...] IMAGING WORKUP WILL BE SCHEDULED BY [facility]. Narrative 12/09/2013 11:35 AM PSYCHIATRIC AIDE BILATERAL SCREENING MAMMOGRAM WITH TOMOSYNTHESIS TECHNIQUE: Bilateral [...] IMAGING WORKUP WILL BE SCHEDULED BY [facility]. us Zaid Arenas MD IMG MAMMO ORDERABLES Final R esult from Last 3 Months or Most Recently Relevant to Health Maintenance
--- OUTSIDE RECORDS SUMMARY | 2025-09-15 17:15 | XMS_ITS | Clinical Summary ---
Author Organization [facility] Address [address] [place] [address] Care Team Providers Care Mechanical Detailer Name Role Phone Unavailable Primary Care Provider Unavailabl e Social History Tobacco Use Types Packs/Day Years Used Date Smoking Tobacco: Never Assessed Comments Unknown Sex and Gender Information Value Date Recorded Sex Assigned at Not on file Legal Sex Female 11:13 PM PHARMACEUTICAL SALES SPECIALIST Gender Identity Not on file Sexual Orientation Not on file Last Filed Vital Signs Vital Sign Reading Time Taken Comments Blood Pressure - - Pulse - - Temperature - - Respiratory Rate - - Oxygen Saturation - - Inhaled Oxygen Concentration - - Weight 113.4 kg (250 lb) 08/30/2015 3:53 PM PHARMACEUTICAL SALES SPECIALIST Height 167.6 cm (5' 6) 08/30/2015 3:53 PM PHARMACEUTICAL SALES SPECIALIST Body Mass Index 40.35 08/30/2015 3:53 PM PHARMACEUTICAL SALES SPECIALIST Plan of Treatment Health Maintenance Due [...]
--- OUTSIDE RECORDS SUMMARY | 2025-09-15 17:15 | XMS_ITS | Encounter Summary ---
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
--- OUTSIDE RECORDS SUMMARY | 2025-09-15 17:15 | XMS_ITS | Clinical Summary ---
Author Organization [facility] Address [address] [place] [address] Phone Care Team Providers Care Police Officer Name Role Phone Lorena Anthony MD Primary Care Provider [phone] Allergies Active Allergy Reactions Criticality Noted Date Comments Adhesive Unknown Medium 11/14/2023 Cefdinir Unknown 11/14/2023 Hydrocodone Unknown 11/14/2023 Citrus Anaphylaxis High 11/16/2023 Prochlorperazine Unknown 11/14/2023 Medications [...] 11/14/2023 History of COVID-19 11/14/2023 Atherosclerosis of navajo co ronary artery of navajo heart without angina pectoris 11/14/2023 S/P CABG (coronary artery bypass graft) 11/14/19 Type 2 diabetes mellitus wit hout complication, with long-term current use of insulin 11/14/2023 Primary hypertension 11/14/2023 CKD (chronic kidney disease) stage 4, GFR 15-29 ml/min 11/14/2023 Meningioma 11/14/2023 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 Social History Tobacco Use Types Packs/Day Years [...] on file Legal Sex Female 7:46 PM CODING CLERK Gender Identity Not on file Sexual Orientation Not on file Last Filed Vital Signs Vital Sign Reading Time Taken Comments Blood Pressure 153/60 11/16/2023 7:23 AM CODING CLERK Pulse 66 11/16/2023 7:23 AM CODING CLERK Temperature 36.7 C (98.1 F) 11/16/2023 8:07 AM CODING CLERK Respiratory Rate 21 11/16/2023 7:23 AM CODING CLERK Oxygen Saturation 96% 11/16/2023 7:23 AM CODING CLERK Inhaled Oxygen Concentration - - Weight 104.6 kg (230 lb 11.2 oz) 11/14/2023 2:26 AM CODING CLERK Height 167.6 cm (5' 6) 11/14/2023 2:26 AM CODING CLERK Body Mass Index 37.24 11/14/2023 2:26 AM CODING CLERK Plan of Treatment Health Maintenance Due Date [...] Advance Directives For more information, please contact: [phone] * Full Code (Latest Code Status on File) Date Activated Date Inactivated Comments 11/14/2023 5:11 AM 11/16/2023 3:51 PM Care Teams Police Officer Relationship Specialty Start Date End Date Lorena Anthony MD [address] [facility] [address] [place] [address] PCP - General Family Practice 11/14/23
[2025-09-15 17:33] LABS: Hematocrit 49.5 % (35.0-42.0); Hemoglobin 16.2 g/dL (11.7-13.8); Immature Granulocyte Percent A 0.4 % (0.0-0.0); Lymphocytes Absolute Auto 0.67 K/mm3 (1.10-4.50); Mean Corpuscular HGB Conc 32.7 g/dL (32-36); Mean Corpuscular Hemoglobin 27.8 pg (27.0-31.0); Mean Corpuscular Volume 85.1 fL (78.0-102.0); Nucleated Red Blood Cells Absolute Auto 0.00 K/mm3 (0.00-0.00); Nucleated Red Blood Cells Perc 0.0 % (0-0.0); Platelet Count Result 221 K/mm3 (150-420); Red Blood Count 5.82 M/mm3 (4.20-5.40); White Blood Count 10.3 K/mm3 (4.8-10.8)
[2025-09-15 18:03] LABS: Alanine Aminotransferase 131 U/L (6-35); Albumin Level 4.5 g/dL (3.5-5.1); Alkaline Phosphatase 105 U/L (38-126); Anion Gap 25 mmol/L (4-12); Aspartate Amino Transferase 627 U/L (14-36); Bilirubin,Total 0.8 mg/dL (0.2-1.3); Blood Urea Nitrogen 77 mg/dL (7-17); Calcium 9.5 mg/dL (8.4-10.2); Carbon Dioxide 15 mmol/L (22-30); Chloride 106 mmol/L (98-107); Creatine Kinase > 1600 U/L (30-135); Estimated CRCL calculation 8 ml/min; Estimated Glomerular Filt Rate 6; Glucose 223 mg/dL (65-110); Lipase 454 U/L (23-300); Osmolality Calculated 332 mOsm/kg (285-295); Potassium 3.5 mmol/L (3.4-5.0); Sodium 146 mmol/L (137-145); Total Protein 8.3 g/dL (6.3-8.2)
[2025-09-15 18:10] LABS: Influenza A QL RT-PCR Negative (Negative); Influenza B QL RT-PCR Negative (Negative); RSV RNA, RT-PCR Negative (Negative); SARS-CoV-2 RNA PCR Negative (Negative)
[2025-09-15] MEDS: SODIUM CHLORIDE 0.9% IV 1,000 ML 999 ML IV CONT ×2 (18:12→20:10)
[2025-09-15 18:19] LABS: Troponin I 0.127 ng/mL (0.000-0.034)
[2025-09-15 18:51] LABS: Add Urine Microscopic? YES; Glucose Urine UA Negative (Negative); Leukocyte Esterase Ur Trace LEU/UL (Negative); Nitrate Urine Positive (Negative); Specific Grav Ur >= 1.030 (1.010-1.020)
--- NOTE | 2025-09-15 19:10 | PC.NURSE ---
Pt report received from LISSY Mcfarland. Pt awaiting results of imaging and blood and plan of care to be decided pending results. Pt resting on stretcher in ED 6.
[2025-09-15 19:12] LABS: Appearance Urine Cloudy (Clear)
[2025-09-15 19:29] LABS: Toxigenic C. Diff NEGATIVE (NEGATIVE)
[2025-09-15] MEDS: ACETAMINOPHEN 500 MG TABLET 1000 MG PO (20:44)
[2025-09-15] MEDS: PIPERACILLIN/TAZOBACTAM SOD 3.375 GM in SODIUM CHLORIDE 0.9% IV 50 ML 100 ML IVPB (20:44)
--- NOTE | 2025-09-15 21:46 | PC.NURSE ---
Pt adore Chowdary phoned and update provided per this RN including room number, diagnosis and current pt status.
[2025-09-15] MEDS: SODIUM CHLORIDE 0.9% IV 1,000 ML 125 ML IV CONT (21:58)
--- NOTE | 2025-09-18 13:42 | PC.NURSE ---
PRELIMINARY URINE CULTURE REPORT; GRAM NEGATIVE BACILLI ISOLATED, WILL WAIT FOR FINAL CULTURE AND SENSATIVITY
--- NOTE | 2025-09-19 15:03 | PC.NURSE ---
PRELIMINARY BLOOD CULTURE REPORT; NO GROWTH IN 24 HOURS.
--- NOTE | 2025-09-19 15:39 | PC.NURSE ---
FINAL URINE CULTURE REPORT FAXED TO [facility] AT [phone]
--- NOTE | 2025-09-20 13:06 | PC.NURSE ---
PRELIMINARY BLOOD CULTURE REPORT: NO GROWTH IN 48 HOURS. WAITING ON FINAL CULTURE REPORT.
== END 2025-09-15 22:06 | disposition short-term general hospital (02) ==
PROVIDERS: Emergency Provider Emergency Medicine; PCP Family Medicine
DX: N39.0 Urinary tract infection, site not specified (principal); E87.20 Acidosis, unspecified; T79.6XXA Traumatic ischemia of muscle, initial encounter; N17.9 Acute kidney failure, unspecified; E86.0 Dehydration; R79.89 Other specified abnormal findings of blood chemistry; J44.9 Chronic obstructive pulmonary disease, unspecified; I25.10 Atherosclerotic heart disease of native coronary artery without angina pectoris; I12.9 Hypertensive chronic kidney disease with stage 1 through stage 4 chronic kidney disease, or unspecified chronic kidney disease; E11.22 Type 2 diabetes mellitus with diabetic chronic kidney disease; N18.4 Chronic kidney disease, stage 4 (severe); Z85.3 Personal history of malignant neoplasm of breast; Z87.891 Personal history of nicotine dependence; W19.XXXA Unspecified fall, initial encounter; Z20.822 Contact with and (suspected) exposure to COVID-19
CPT/HCPCS: 36415; 71045; 80053; 81001; 82270; 82550; 83605; 83690; 84484; 85025; 87086; 87186; 87493; 87637; 93005; 96365; 99285; A9270; J2543; J7030

== ENCOUNTER 2025-09-15 23:51 | Inpatient (IN) | payer MEDICARE, SELFPAY ==
--- OUTSIDE RECORDS SUMMARY | 2024-07-16 07:50 | XMS_ITS ---
Author Organization [facility] Address [address] [place], [place] [id number] Care Team Providers Care New Account Interviewer Name Role Phone BOUBACAR SPENCER Unavailable [phone] James Candelaria Unavailable Unavailable FARNAZ VASQUEZ Unavailable [phone] REASON FOR VISIT *General care Encounters Encounter Location Date Provider Diagnosis [facility] [address] [place], [place] [id number] 07/16/2024 FARNAZ VASQUEZ Plan Of Treatment Next Appt Details Provider Name:BOUBACAR CHRISTIANSON, 09/23/2025 10:30:00 AM, [address] [place] [address], [id number], Progress Notes * ODILON JARVISEEDOB: [birth year] (75 yo F)Acc No.[id number]:07/16/2024 Patient: Viv LIZZY HOWARD Provider: Marquise VASQUEZ :1950 A ge:74 Y S ex:Female Date:07/16/2024 Address:[address] [place] [address], [address] [id number] Subjective: * Chief Complaints: * * General care Billing Information: * Procedure Codes: * Electronic signature of ARY VASQUEZ DPM on 09/16/2025 at 07:39 AM CLOCK AND WATCH ASSEMBLER Sign off status: Pending * Provider: Marquise VASQUEZ Date: Generated for Rianna Yuang/Ana Maria on: 1 11/17/2024 07:39 AM CLOCK AND WATCH ASSEMBLER
--- OUTSIDE RECORDS SUMMARY | 2024-09-24 07:50 | XMS_ITS ---
Author Organization [facility] Address [address] [place], [place] [id number] Care Team Providers Care Job Change Crew Member Name Role Phone BOUBACAR SPENCER Unavailable [phone] James Candelaria Unavailable Unavailable FARNAZ VASQUEZ Unavailable [phone] REASON FOR VISIT *General care Encounters Encounter Location Date Provider Diagnosis [address] [id number] 09/24/2024 FARNAZ VASQUEZ Plan Of Treatment Next Appt Details Provider Name:BOUBACAR CHRISTIANSON, 09/23/2025 10:30:00 AM, [address] [place] [address], [id number], Progress Notes * ORQUIDEA JARVISOB: [birth year] (75 yo F)Acc No.[id number]:09/24/2024 Patient: Viv LIZZY HOWARD Provider: Marquise VASQUEZ :1950 A ge:74 Y S ex:Female Date:09/24/2024 Address:[address] [place] [address], [id number] Subjective: * Chief Complaints: * * General care Billing Information: * Procedure Codes: * Electronic signature of ARY VASQUEZ DPM on 09/16/2025 at 07:38 AM RESIDENTIAL TECH Sign off status: Pending * Provider: Marquise VASQUEZ Date: 11/25/2023 Generated for Rianna rich/Gilberto/Ana Maria on: 11/17/2024 07:38 AM RESIDENTIAL TECH
--- OUTSIDE RECORDS SUMMARY | 2024-10-01 03:50 | XMS_ITS ---
Author Organization [facility] Address [address] [place], [place] [id number] Care Team Providers Care Technology Officer Name Role Phone BOUBACAR SPENCER Unavailable [phone] James Candelaria Unavailable Unavailable FARNAZ VASQUEZ Unavailable [phone] Allergies Allergen (clinical drug ingredient) Drug/Non Drug [...] 30 Days Acti ve TRUEplus 5-Bevel Pen [place] 31G X 8 MM Miscellaneous ; Duration: 33 Days Active HumuLIN R U-500 KwikPen 500 UNIT/ML Solution Pen-injector Subcutaneous; Duration: 24 Days Active Encounters Encounter Location Date Provider Diagnosis [facility] [address] [place], [place] [id number] 10/01/2024 FARNAZ VASQUEZ Xerosis cutis L85.3 ; Tinea unguium B35.1 ; Unspecified atherosclerosis of [place] arteries of extremities, bilateral legs I70.203 ; [...] and prescription treatments. 10/01/2024 Unspecified atherosclerosis of [place] arteries of extremities, bilateral legs (ICD-10 - [...] OTC and prescription treatments. Unspecified atherosclerosis of [place] arteries of extremities, bilateral legs Patient educated [...] Reason: Provider Name:BOUBACAR CHRISTIANSON, 09/23/2025 10:30:00 AM, [address] [place] [address], [id number], History and Physical Notes * HPI (History [...] * ODILON JARVISKIMIOB: [birth year] (75 yo F)Acc No.[id number]:10/01/2024 Patient: LIZZY ESPINOSA Provider: Marquise VASQUEZ :1950 A ge:74 Y S ex:Female Date:10/01/2024 Address:[address] [place] [address] Subjective: * Chief Complaints: * * General [...] seen by Dr. Candelaria was 03/2024., [facility] * ROS: G eneral / Constitutional: Patient [...] UNIT/ML Solution Pen-injector Subcutaneous TRUEplus 5-Bevel Pen [place] 31G X 8 MM Miscellaneous Potassium Citrate [...] Solution Pen-injector Subcutaneous Taking TRUEplus 5-Bevel Pen [place] 31G X 8 MM Miscellaneous Taking Potassium [...] - L85.3 ?3. U nspecified atherosclerosis of [place] arteries of extremities, bilateral legs - I70.203? [...] feet daily. 3. U nspecified atherosclerosis of [place] arteries of extremities, bilateral legs Notes: Patient [...] 3 Months Billing Information: * Visit Code: 97607 Office Visit, Est Pt., Level 3. * Procedure Codes: * Electronic signature of ARY VASQUEZ DPM on 09/16/2025 at 07:39 AM SENIOR SAS PROGRAMMER Sign off status: Pending * Provider: Marquise VASQUEZ Date: 12/02/2023 Generated for Printi ng/Gilberto/Rosemaryitting on: 1 11/17/2024 07:39 AM SENIOR SAS PROGRAMMER
--- OUTSIDE RECORDS SUMMARY | 2025-03-11 05:30 | XMS_ITS ---
Author Organization [facility] Address [address] [place], [place] [id number] Care Team Providers Care Agriculture Internship Name Role Phone BOUBACAR SPENCER Unavailable [phone] James Candelaria Unavailable Unavailable Allergies Allergen (clinical drug ingredient) Drug/Non Drug Allergy documented on EMR Reaction Allergy Type Onset Date Status Tape Unknown Allergy Active REASON FOR VISIT *General care Medications Medication SIG (Take, Route, Frequency, Duration) Notes Start Date End Date Status Brilinta 90 MG Tablet Oral; Duration: 30 Days Active Nitroglycerin 0.4 MG Tablet Sublingual Sublingual; Duration: 8 Days Active Calcitriol 0.25 MCG Capsule Oral; Duration: 28 Days Active Metoprolol Tartrate 25 MG Tablet Oral; Duration: 90 Days Acti ve Potassium Citrate ER 10 MEQ (1080 MG) Tablet Extended Release Oral; Duration: 30 Days Acti ve OneTouch Verio - Strip In Vitro; Duratio n: 100 Days Active Furosemide 20 MG Tablet Oral; Duration: 30 Days Active Icosapent Ethyl 1 GM Capsule Oral; Duration: 30 Days Active TRUEplus 5-Bevel Pen [place] 31G X 8 MM Miscellaneous ; Duration: 33 Days Active HumuLIN R U-500 KwikPen 500 UNIT/ML Solution Pen-injector Subcutaneous; Duration: 24 Days Active Atorvastatin Calcium 80 MG Tablet Oral; Duration: 90 Days Acti ve Pantoprazole Sodium 40 MG Tablet Delayed Release Oral; Duration: 30 Days Active Social History Social History Additional Details Category Social Info Options Details Migrated Social History Migrated Social History Smoking Status : Former tobacco user , History of tobacco use : Vital Signs Height 66.00 in 03/11/2025 Weight 250 lbs 03/11/2025 BMI 40.35 kg/m2 03/11/2025 Height-cm 167.64 cm 03/11/2025 Weight-kg 113.4 kg 03/11/2025 Encounters Encounter Location Date Provider Diagnosis [address] [id number] 03/11/2025 BOUBACAR SPENCER Tinea unguium B35.1 ; Pain in right toe(s) M79.674 ; Pain in left toe(s) M79.675 ; Atherosclerosis of [place] arteries of extremities with intermittent claudication, bilateral legs I70.213 and Type 2 diabetes mellitus with other circulatory complications E11.59 Assessments Encounter Date Diagnosis (ICD Code) Assessment Notes Treatment Notes Treatment Clinical Notes Section Notes 03/11/2025 Tinea unguium (ICD-10 - B35.1) NAIL DEBRIDEMENT: Nails 1-5 Bilateral were debrided extensively with nail nippers and emery board, reducing length and girth to pink healthy tissue with any subungual debris and necrotic tissue removed 03/11/2025 Pain in right toe(s) (ICD-10 - M79.674) 03/11/2025 Pain in left toe(s) (ICD-10 - M79.675) 03/11/2025 Atherosclerosis of [place] arteries of extremities with intermittent claudication, bilateral legs (ICD-10 - I70.213) 03/11/2025 Type 2 diabetes mellitus with other circulatory complications (ICD-10 - E11.59) Diabetic Foot Care: The patient was educated on diabetes and the lower extremity. The patient was instructed to check his feet daily to report any problems or signs of infection immediately. Check and protect LE bilateral daily. Call if any changes or concerns. Plan Of Treatment Treatment Notes Assessment Notes [...] any problems or signs of infection immediately. Check and protect LE bilateral daily. Call if any changes or concerns. Next Appt Details Follow Up: 10 - 12 weeks, Re ason: At-Risk Foot care, sooner if problems develop. Provider Name:BOUBACAR CHRISTIANSON, 09/23/2025 10:30:00 AM, [address] [place] [address], [id number], History and Physical Notes * HPI (History of Present Illness) Category Sub-Category Detail Notes Category Not es HPI General care Patient presents to the office for diabetic foot care. Patient states that their nails are thickened, elongated and painful. Patient states that it is aggravated by shoe gear. Onset is gradual., Patient denies taking prescription blood thinners but does take a daily aspirin. Date last seen by Dr. Candelaria was 2022. Initials LB Examination Category Sub-Category Detail Notes Category Not [...] inversion, and eversion in bilateral lower extremities Progress Notes * ORQUIDEA JARVISOB: [birth year] (75 yo F)Acc No.[id number]:03/11/2025 Patient: ALLEN ESPINOSADORA Provider: Rosetta SPENCER :1950 A ge:74 Y S ex:Female Date:03/11/2025 Address:[address] [place], [place] [id number] Subjective: * Chief Complaints: * * General care * HPI: H PI: General care P atient presents to the office for diabetic foot care. Patient states that their nails are thickened, elongated and painful. Patient states that it is aggravated by shoe gear. Onset is gradual., Patient denies taking prescription blood thinners but does take a daily aspirin. D ate last seen by Dr. Candelaria was 2022. I nitials LB. * ROS: G eneral / Constitutional: Patient [...] confusion, dizziness, difficulty speaking. * Medical History: No Medical History Documented Medical History Verified * Surgical History: No Surgical History documented. Surgical History verified. * Hospitalization/Major Diagno stic Procedure: No Hospitalization Documented. Hospitalization Verified. * Family History: F ather: PRN - Father: :: Cancer,,known absent . M other: PRN - Mother: :: Cancer,,known absent . B rother: SIB - Brother: :: Heart disease,,known absent . F amily History Verified.. * Social History: M igrated Social History: M igrated Social History: Smoking Status : Former tobacco user , History of tobacco use :. Social History Verified. * Medications: T akingCalcitriol 0.25 MCG Capsule Oral Atorvastatin Calcium 80 MG Tablet Oral Pantoprazole Sodium 40 MG Tablet Delayed Release Oral OneTouch Verio - Strip In Vitro Icosapent Ethyl 1 GM Capsule Oral Furosemide 20 MG Tablet Oral HumuLIN R U-500 KwikPen 500 UNIT/ML Solution Pen-injector Subcutaneous TRUEplus 5-Bevel Pen [place] 31G X 8 MM Miscellaneous Potassium Citrate ER 10 MEQ (1080 MG) Tablet Extended Release Oral Metoprolol Tartrate 25 MG Tablet Oral Nitroglycerin 0.4 MG Tablet Sublingual Sublingual Brilinta 90 MG Tablet Oral Medication List reviewed and reconciled with the patientTaking Calcitriol 0.25 MCG Capsule Oral Taking Atorvastatin Calcium 80 MG Tablet Oral Taking Pantoprazole Sodium 40 MG Tablet Delayed Release Oral Taking OneTouch Verio - Strip In Vitro Taking Icosapent Ethyl 1 GM Capsule Oral Taking Furosemide 20 MG Tablet Oral Taking HumuLIN R U-500 KwikPen 500 UNIT/ML Solution Pen-injector Subcutaneous Taking TRUEplus 5-Bevel Pen [place] 31G X 8 MM Miscellaneous Taking Potassium Citrate ER 10 MEQ (1080 MG) Tablet Extended Release Oral Taking Metoprolol Tartrate 25 MG Tablet Oral Taking Nitroglycerin 0.4 MG Tablet Sublingual Sublingual Taking Brilinta 90 MG Tablet Oral Medication List reviewed and reconciled with the patient * Allergies: T Micaelaergies Verified. Objective: * Vitals: W t: 250 lbs, Wt-k.4 kg, Ht: 66.00 in, Ht-cm: 167.64 cm, BMI: 40.35 Index, Body Surface Area: 2.3. * Examination: P hysical Examination: General appearance: [...] - M79.675 4 . A therosclerosis of [place] arteries of extremities with intermittent claudication, bilateral [...] report any problems or signs of infection immediately.? Check and protect LE bilateral daily. Call if any changes or concerns. * Immunizations: Immunization record has been reviewed and updated. * Procedure Codes: 1 1721 DEBRIDE NAIL, 6 OR MORE, Modifiers: Q8 * Follow Up: 1 0 - 12 weeks (Reason: At-Risk Foot care, sooner if problems develop.) Billing Information: * Procedure Codes: 08876 DEBRIDE NAIL, 6 OR MORE. Modifiers: Q8 * Electronic signature of ALLI SPENCER DPM on 09/16/2025 at 07:39 AM ORE FIELDER Sign off status: Pending * Provider: Rosetta SPENCER Date: 0 03/11/2025 Generated for Rianna rich/Gilberto/Rosemaryitting on: 1 11/17/2024 07:39 AM ORE FIELDER
--- OUTSIDE RECORDS SUMMARY | 2025-05-13 05:20 | XMS_ITS ---
Author Organization [facility] Address [address] [place], [place] [address] Care Team Providers Care Assistant Hall Director Name Role Phone BOUBACAR SPENCER Unavailable [phone] James Candelaria Unavailable Unavailable Allergies Allergen (clinical drug ingredient) Drug/Non Drug Allergy documented on EMR Reaction Allergy Type Onset Date Status Tape Unknown Allergy Active REASON FOR VISIT *General care Medications Medication SIG (Take, Route, Frequency, Duration) Notes Start Date End Date Status Potassium Citrate ER 10 MEQ (1080 MG) Tablet Extended Release Oral; Duration: 30 Days Acti ve TRUEplus 5-Bevel Pen [place] 31G X 8 MM Miscellaneous ; Duration: [...] 05/13/2025 Encounters Encounter Location Date Provider Diagnosis [address] [id number] 05/13/2025 BOUBACAR SPENCER Tinea unguium B35.1 ; Pain in right toe(s) M79.674 ; Pain in left toe(s) M79.675 ; Atherosclerosis of [place] arteries of extremities with intermittent claudication, bilateral [...] toe(s) (ICD-10 - M79.675) 05/13/2025 Atherosclerosis of [place] arteries of extremities with intermittent claudication, bilateral [...] debris and necrotic tissue removed Atherosclerosis of [place] ar teries of extremities with intermittent claudication, [...] develop. Provider Name:BOUBACAR CHRISTIANSON, 09/23/2025 10:30:00 AM, [address] [place] [address], [phone], History and Physical Notes * HPI (History [...] * ODILON JARVISEEDOB: [birth year] (75 yo F)Acc No.[id number]:05/13/2025 Patient: LIZZY ESPINOSA Provider: Rosetta SPENCER :1950 A ge:74 Y S ex:Female Date:05/13/2025 Address:[address] [place] [address] Subjective: * Chief Complaints: * * General [...] UNIT/ML Solution Pen-injector Subcutaneous TRUEplus 5-Bevel Pen [place] 31G X 8 MM Miscellaneous Potassium Citrate [...] Solution Pen-injector Subcutaneous Taking TRUEplus 5-Bevel Pen [place] 31G X 8 MM Miscellaneous Taking Potassium [...] - M79.675 4 . A therosclerosis of [place] arteries of extremities with intermittent claudication, bilateral legs - I70.213 5 . T ype 2 diabetes mellitus with other circulatory complications - E11.59 6 .?Acquired keratoderma - L85.1 Plan: * Treatment: 2. A therosclerosis of [place] arteries of extremities with intermittent claudication, bilateral [...] SKIN LESIONS, 2 TO 4, Modifiers: Q8 12862 DEBRIDE NAIL, 6 OR MORE, Modifiers: 59 , Q8 * Follow Up: 1 0 - 12 weeks (Reason: At-Risk Foot care, sooner if problems develop.) Billing Information: * Procedure Codes: 06680 TRIM SKIN LESIONS, 2 TO 4. Modifiers: Q8 02018 DEBRIDE NAIL, 6 OR MORE. Modifiers: 59, Q8 * Electronic signature of ALLI SPENCER DPM on 09/16/2025 at 07:39 AM SHEET METAL SHOP FOREMAN Sign off status: Pending * Provider: Rosetta SPENCER Date: 0 05/13/2025 Generated for Rianna rich/Gilberto/Ana Maria on: 1 11/17/2024 07:39 AM SHEET METAL SHOP FOREMAN
--- OUTSIDE RECORDS SUMMARY | 2025-07-15 04:30 | XMS_ITS ---
Author Organization [facility] Address [address] [place], [place] [address] Care Team Providers Care Senior Hr Generalist Name Role Phone BOUBACAR SPENCER Unavailable [phone] James Candelaria Unavailable Unavailable Allergies Allergen (clinical [...] Duration: 24 Days Active TRUEplus 5-Bevel Pen [place] 31G X 8 MM Miscellaneous ; Duration: [...] 07/15/2025 Encounters Encounter Location Date Provider Diagnosis [address] [id number] 07/15/2025 BOUBACAR SPENCER Tinea unguium B35.1 ; Pain in right toe(s) M79.674 ; Pain in left toe(s) M79.675 ; Atherosclerosis of [place] arteries of extremities with intermittent claudication, bilateral [...] toe(s) (ICD-10 - M79.675) 07/15/2025 Atherosclerosis of stebbins arteries of extremities with intermittent claudication, bilateral [...] debris and necrotic tissue removed Atherosclerosis of stebbins ar teries of extremities with intermittent claudication, [...] develop. Provider Name:BOUBACAR CHRISTIANSON, 09/23/2025 10:30:00 AM, [address] [place] [address], [id number], History and Physical Notes * HPI (History [...] * ODILON JARVISEEDOB: [birth year] (75 yo F)Acc No.[id number]:07/15/2025 Patient: LIZZY ESPINOSA Provider: Rosetta SPENCER :1950 A ge:75 Y S ex:Female Date:07/15/2025 Address:[address] [place], [place] [id number] Subjective: * Chief Complaints: * * General [...] UNIT/ML Solution Pen-injector Subcutaneous TRUEplus 5-Bevel Pen [place] 31G X 8 MM Miscellaneous Potassium Citrate [...] Solution Pen-injector Subcutaneous Taking TRUEplus 5-Bevel Pen [place] 31G X 8 MM Miscellaneous Taking Potassium [...] - M79.675 4 . A therosclerosis of stebbins arteries of extremities with intermittent claudication, bilateral legs - I70.213 5 . A cquired keratoderma - L85.1 6 . T ype 2 diabetes mellitus with other circulatory complications - E11.59 Plan: * Treatment: 2. A therosclerosis of stebbins arteries of extremities with intermittent claudication, bilateral [...] problems develop.) Billing Information: * Visit Code: 18009 Office Visit, Est Pt., Level 3. * Procedure Codes: * Electronic signature of ALLI SPENCER DPM on 09/16/2025 at 07:38 AM CAMPAIGN ASSISTANT Sign off status: Pending * Provider: Rosetta SPENCER Date: 1 Generated for Rianna rich/Gilberto/Ana Maria on: 11/17/2024 07:38 AM CAMPAIGN ASSISTANT
--- NOTE | ~2025-09-15 | XR_ITS ---
EXAMINATION: XR elbow RT 2V, 09/23/2025 13:20 INCUBATOR MACHINE OPERATOR HISTORY: pain, AFTER FALL TO RT ELBOW COMPARISON: No comparisons available. Findings: No acute fracture or malalignment. No significant degenerative changes. Soft tissues unremarkable. Impression: No acute fracture or malalignment. Reviewed, dictated and finalized at location P. BATOR MACHINE OPERATOR Impression: No acute fracture or malalignment.
--- NOTE | ~2025-09-15 | XR_ITS ---
Examination: XR chest 1V portable Clinical History: JOSE E on CKD Comparison: 1 day prior Technique: Portable AP Findings: Unchanged cardiomegaly. Mild chronic interstitial changes. No acute bony abnormality. IMPRESSION: 1. No acute cardiopulmonary findings given portable technique. Reviewed, dictated and finalized at location R. GE ROOM ATTENDANT
--- NOTE | ~2025-09-15 | XR_ITS ---
EXAMINATION: XR chest 1V portable DATE: 09/17/2025 09:15 INDICATION: Shortness of breath TECHNIQUE: frontal view of the chest was obtained. COMPARISON: Chest radiograph dated 09/15/2025 FINDINGS: The lungs are clear with no focal airspace opacities, pulmonary edema, pleural effusion or pneumothorax. The cardiomediastinal silhouette is normal. Postoperative changes of likely prior left mastectomy with surgical clips project over the left axilla. IMPRESSION: 1. No acute cardiopulmonary disease. Reviewed, dictated and finalized at location A. UATE INTERN
--- NOTE | ~2025-09-15 | CT_ITS ---
CT abdomen pelvis wo con INDICATION:diarrhea . COMPARISON: None. TECHNIQUE: Axial 2.5 mm images of the abdomen were obtained without IV or oral contrast. Diagnostic sensitivity is limited due to lack of IV contrast. FINDINGS: The lung bases are clear. The liver parenchyma is unremarkable. No intrahepatic mass or ductal dilatation is evident. Cholelithiasis is noted. The pancreas and spleen are normal in appearance. The adrenal glands are symmetric in size. The kidneys are unremarkable. Nonobstructive right renal stone measures up to 11.7 mm. There is no hydronephrosis. 4 cm right renal cyst is noted. Evaluation of the stomach and bowel loops are limited due to lack of oral contrast. No bowel obstruction is seen. There is no evidence of acute diverticulitis or appendicitis. The bladder and rectum are normal. No free intraperitoneal fluid or air is evident. There is no significant retroperitoneal lymphadenopathy. The aorta, visceral vessels and renal arteries demonstrate normal caliber. The lower thoracic and lumbar vertebrae are in normal alignment. IMPRESSION: No acute abnormality is noted in the abdomen and pelvis. All CT scans at this facility are performed using low dose modulation techniques as appropriate to perform exam including the following: automated exposure control; use of iterative reconstruction technique; adjustment of the mA and/or kV according to patient size (this includes techniques or standardized protocols for targeted exams where dose is matched to indication/reason for exam). Reviewed, dictated and finalized at location S. TECHNICIAN IMPRESSION: No acute abnormality is noted in the abdomen and pelvis. All CT scans at this facility are performed using low dose modulation techniqu es as appropriate to perform exam including the following: automated exposure c ontrol; use of iterative reconstruction technique; adjustment of the mA and/or kV according to patient size (this includes techniques or standardized protocol s for targeted exams where dose is matched to indication/reason for exam).
--- NOTE | ~2025-09-15 | US_ITS ---
US retroperitoneal comp INDICATION: issa on ckd . COMPARISON: None available. FINDINGS: The right kidney measures 10 x 5 x 5.3 cm. The left kidney measures 12.7 x 6 x 6.3 cm. The renal contour and echotexture are unremarkable bilaterally. There are 2 stones within the right kidney measuring up to 1 x 0.5 x 1.4 cm. There is a cyst in the right kidney that measures 3.9 x 3 x 4 cm. Cysts within the left kidney measures 1.7 x 1.5 x 1.7 cm. No solid mass. There is no hydronephrosis. There is a Lott catheter within the bladder. IMPRESSION: Nonobstructive right renal stone measures up to 1.4 cm. Bilateral renal cysts. Reviewed, dictated and finalized at location S. LLENCE MANAGER
[2025-09-15 22:50] VITALS: BMI 36.6
--- NOTE | 2025-09-15 22:51 | ADMGEN ---
This patient, Munira Falk, was admitted to IMU Room 206-02. Patient/family oriented to hospital policies and general routines including ID bracelet, bed and alarms, visiting hours, pain management, procedures, bathroom and other care routines, personal items, smoking policy, room service/diet, and visiting hours. Information on how to activate the Rapid Response Team has been discussed. Patient/Family are encouraged to report perceived risks to care and to ask questions if they do not understand what they are told or what they should do.
[2025-09-15 23:19] VITALS: BMI 36.6
[2025-09-15 23:20] VITALS: BP 119/78; PULSE 111; RESP 16; TEMP 36.6; O2SAT 98
[2025-09-15 23:44] VITALS: O2SAT 98
[2025-09-16] VITALS (17 sets, daily range): BP systolic 112–145; BP diastolic 59–82; PULSE 70–113; RESP 16–28; TEMP 36.4–37.1; O2SAT 92–99
--- NOTE | 2025-09-16 | ECHO_ITS ---
Patient Info Name: Jesika Falk Age: 75 years : 1950 Gender: Female Ht: 66 in Wt: 227 lbs BSA: 2.23 m2 HR: 75 bpm BP: 145 / 59 mmHg Heart Rhythm: Sinus Rhythm Technical Quality: Fair Exam Date: 09/16/2025 2:40 PM Patient Status: I Admit Date: 09/15/2025 Exam Type: CA echo doppler color flow Complete two-dimensional, color flow and Doppler transthoracic echocardiogram is performed. Staff Referring Physician: Everett Hdez Green Meat Grader: Cristhian Kolb Attending Provider: Mag Ricci Summary 1. Complete two-dimensional, color flow and Doppler transthoracic echocardiogram is performed. 2. RN SAID NOT TO USED DEFINITY AT THIS TIME - PATIENT HAD DIARRHEA. 3. Technically difficult study with limited views. 4. Normal biventricular size and systolic function. 5. Cardiac valves in this study unable to be assessed. Left Ventricle The left ventricle is normal in size and systolic function. The left ventricular ejection fraction is visually estimated to be 60-65%. Right Ventricle The right ventricle is normal in size and systolic function. Pericardium/Pleural Pericardium is normal in appearance with no evidence for significant pericardial effusion. Inferior Vena Cava Inferior vena cava is not well visualized. Aorta The visualized portion of the proximal ascending aorta measures 2.9 cm in diameter. Left Ventricular Outflow Tract Name Value Normal LVOT 2D LVOT Diameter 2.5 cm LVOT Doppler LVOT Peak Velocity 79 cm/s LVOT Peak Gradient 1 mmHg LVOT Mean Gradient 0 mmHg LVOT VTI 13 cm LVOT Stroke Volume 63 ml LVOT CO 1.2 l/min LVOT CI 0.5 l/min/m2 Pulmonic Valve Name Value Normal RVOT Doppler RVOT Peak Velocity 30 cm/s RVOT Peak Gradient 0 mmHg PV Doppler PV Peak Velocity 108 cm/s PV Peak Gradient 4 mmHg Mitral Valve Name Value Normal MV Diastolic Function MV E Peak Velocity 26 cm/s MV A Peak Velocity 3 cm/s MV E/A 7.7 MV Decel Time (PW) 177 ms MV Annular TDI MV E/e' (Septal) 3.6 MV E/e' (Lateral) 4.1 MV E/e' (Average) 3.8 Tricuspid Valve Name Value Normal TV Regurgitation Doppler TR Peak Velocity 73 cm/s TR Peak Gradient 2 mmHg TV Annular TDI TV Lateral Lilly s' Velocity 13.0 cm/s >=9.5 Aortic Valve Name Value Normal AV Doppler AV Peak Velocity 136 cm/s AV Peak Gradient 7 mmHg AV Area (Cont Eq [place]) 2.9 cm2 AV DI ([place]) 0.58 AV Regurgitation 2D LVOT Area 5.1 cm2 Ventricles Name Value Normal LV Dimensions 2D/MM IVS Diastolic Thickness (2D) 1.0 cm 0.6-1.0 LVID Diastole (2D) 4.1 cm 3.8-5.2 LVIW Diastolic Thickness (2D) 1.3 cm 0.6-0.9 LVID Systole (2D) 3.3 cm 2.2-3.5 LVOT Diameter 2.5 cm LV Mass (2D Cubed) 169.74 g 67.00-162.00 LV Mass Index (2D Cubed) 76 g/m2 43-95 Relative Wall Thickness (2D) 0.65 <=0.42 LV Fractional Shortening/Ejection Fraction 2D/MM LV Fractional Shortening (2D) 20 % 27-45 LV EF (2D [place]) 42 % LV Diastolic Volume (4C MOD) 94 ml LV EF (4C MOD) 59 % LV Diastolic Volume (2C MOD) 89 ml LV EF (2C MOD) 53 % LV Diastolic Volume (BP MOD) 98 ml 46-106 LV Diastolic Volume Index (BP MOD) 44 ml/m2 29-61 LV Systolic Volume (BP MOD) 41 ml 14-42 LV Systolic Volume Index (BP MOD) 18 ml/m2 8-24 LV EF (BP MOD) 58 % 54-74 LV Diastolic Length (4C) 6.4 cm LV Systolic Length (4C) 5.5 cm LV Stroke Volume (4C MOD) 55 ml Atria Name Value Normal LA Dimensions LA Volume (4C A-L) 37 ml LA Volume (BP A-L) 47 ml RA Dimensions RA Systolic Major [place] Length (4C) 5.5 cm 2.2-2.8 RA Area (4C) 22.4 cm2 <=18.0 Report Signatures
[2025-09-16 00:26] LABS: Alanine Aminotransferase 103 U/L (6-35); Albumin Level 3.7 g/dL (3.5-5.1); Alkaline Phosphatase 92 U/L (38-126); Anion Gap 17 mmol/L (4-12); Aspartate Amino Transferase 402 U/L (14-36); Bilirubin,Total 0.8 mg/dL (0.2-1.3); Blood Urea Nitrogen 84 mg/dL (7-17); Calcium 8.9 mg/dL (8.4-10.2); Carbon Dioxide 12 mmol/L (22-30); Chloride 110 mmol/L (98-107); Estimated CRCL calculation 8 ml/min; Estimated Glomerular Filt Rate 6; Glucose 201 mg/dL (65-110); Potassium 3.3 mmol/L (3.4-5.0); Sodium 139 mmol/L (137-145); Total Protein 7.3 g/dL (6.3-8.2)
[2025-09-16 00:34] LABS: Troponin I 0.127 ng/mL (0.000-0.034)
--- NOTE | 2025-09-16 00:38 | ECG_ITS ---
Test Date: 2025-09-16 00:59:56 Measurements Intervals [place] Rate: 105 P: 82 LA: 160 QRS: -32 QRSD: 95 T: 86 QT: 351 QTc: 465 Interpretive Statements SINUS TACHYCARDIA WITH OCCASIONAL VENTRICULAR PREMATURE COMPLEXES WITH OCCASIONAL SUPRAVENTRICULAR PREMATURE COMPLEXES LEFT AXIS DEVIATION PATTERN CONSISTENT WITH PULMONARY DISEASE LEFT VENTRICULAR HYPERTROPHY AND ST-T CHANGE INFERIOR INFARCT, AGE INDETERMINATE ABNORMAL ECG Compared to ECG 09/15/2025 17:15:47 Ventricular premature complex(es) now present Electronically Signed On 09-16-2025 06:09:51 VISUAL TRAINING AIDE by Titi Oviedo D.O.
[2025-09-16] MEDS: METOPROLOL TARTRATE 50 MG TAB PO ×3 (01:06→21:08)
[2025-09-16 01:07] LABS: Creatine Kinase > 16000 U/L (30-135)
[2025-09-16] MEDS: PANTOPRAZOLE 40 MG TABLET PO ×2 (01:08→21:08)
[2025-09-16] MEDS: PIPERACILLIN/TAZOBACTAM SOD 2.25 GM in SODIUM CHLORIDE 0.9% IV 50 ML 100 ML IVPB ×3 (01:08→16:56)
[2025-09-16] MEDS: ATORVASTATIN 40 MG TABLET 80 MG PO (01:08)
[2025-09-16] MEDS: SODIUM CHLORIDE 0.9% IV 1,000 ML 150 ML IV CONT (03:00)
[2025-09-16] MEDS: POTASSIUM CHLORIDE 20 MEQ ER TABLET PO (03:04)
--- NOTE | 2025-09-16 03:07 | PM.IMHP2 ---
H&P: HPI History of Present Illness Date/Time: 09/16/25 03:07 Chief Complaint: Fall Narrative: 75-year-old female presenting to [facility] on 09/15/2025 after a mechanical fall. Then transferred to [facility], patient of Dr. Hdez Nephrology. [facility] obesity class 2, CKD stage 4, CAD, insulin-dependent diabetes mellitus, arthritis, hypertension, history of kidney stone, GERD. Patient had a mechanical fall around 3:00 p.m. on 09/14/2025 and stayed on the floor until she was found by her family. Denies loss of consciousness, head strike. Refused CT scan at [facility]. Evaluation there demonstrated sinus tachycardia, otherwise hemodynamic stability. WBC 01099, hemoglobin 16.2, platelets 221, sodium elevated at 146, BUN 77, serum creatinine 6.9 which is much greater than her baseline in the 2s, lactic acid 2.0, calcium 9.5, transaminitis, total creatinine kinase greater than 16,000. Troponin 0.127 x 2. Urinalysis grossly abnormal and positive nitrites, leukocyte esterase bacteria. Wbc's. Urine culture and blood cultures pending. Patient given 1 L of isotonic fluid bolus. Started on Zosyn. Chest x-ray demonstrating mild CHF but patient is breathing comfortably and saturating 95% on room air. Also had diarrhea for about 5 days now, nonbloody. Still ongoing. C diff negative. Review of Systems Review of Systems: All systems reviewed & are unremarkable except as noted in HPI and below (Subjective) PMFSH Past Medical History Medical History History of left heart catheterization Chronic obstructive pulmonary disease Per patient report she had PFTs done in [place] however if she saw the software test and validation engineer here who stated he did not see any signs and symptoms of COPD and that the patient refused to have a PFT or obstructive sleep studies performed. Insulin dependent type 2 diabetes mellitus Coronary artery disease Chronic kidney disease, stage 4 (severe) Cancer of left breast Status post lumpectomy and chemoradiation. Gastroesophageal reflux disease Morbid (severe) obesity due to excess calories Type 2 diabetes mellitus with diabetic chronic kidney disease Cholelithiasis Kidney stone Hypertension Arthritis Surgical History Surgical History History of wisdom tooth extraction History of heart artery stent History of bilateral cataract extraction History of lumpectomy of left breast History of extraction of renal calculus Family History Family History Mother Family history of diabetes mellitus in first degree relative Cancer CHF (congestive heart failure), NYHA class I Diabetes mellitus Family history of cardiovascular disease Family history of congestive heart failure Family history of hearing loss Family history of heart disease in male family member before age 55 Heart disease Family history of thyroid disease Thyroid disease Hypertension Father Cancer CHF (congestive heart failure), NYHA class I Family history of arthritis Family history of cardiovascular disease Family history of congestive heart failure Family history of hearing loss Family history of heart disease in male family member before age 55 Heart disease Family history of obesity Sibling CHF (congestive heart failure), NYHA class I Other Family history of malignant neoplasm Social History Social History Social History: 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ion maker: Epi Falk, son. Code status: Full code. Smoking packs per day: 1 Smoking cigarettes per day: 20.0 Years smoked: 10 Smoking pack-years: 10.00 Smoking status: Former smoker Tobacco type: cigarettes Second hand tobacco smoke exposure: No Smoking end date: 09/21/81 Alcohol intake: current Drinks per week: 1 Alcohol use details: once a month Substance use: never Substance use type: does not use Lack of Transportation: No Lack of Food: Never True Current Housing: I Have Housing Concerned About Future Housing: No Difficulty Paying Gas/Electric Bills: No Difficulty Paying for Meds: YES Currently Unemployed: No Education: Associate Degree Difficulty w/ Childcare or Family Care: No Living arrangements: with family Additional living arrangements comments: Lives in [place]. 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 Gender identity (if verbalized by the patient): Female Spiritual care concerns: No Meds Home Medications and Allergies Home Medications ?Medication ?Instructions ?Recorded ?Confirmed ?Type pantoprazole 40 mg tablet,delayed 40 mg PO HS 01/07/20 09/15/25 History release atorvastatin 80 mg tablet 80 mg PO HS 08/24/20 09/15/25 History cholecalciferol (vitamin D3) 50 50 mcg PO HS 02/15/21 09/15/25 History mcg (2,000 unit) capsule aspirin 81 mg tablet,delayed 81 mg PO DAILY 12/13/23 09/15/25 History release (Adult Aspirin Regimen) lancets 33 gauge (BettinaTouch Delica #300 ea 02/03/24 09/15/25 Rx Plus Lancet) furosemide 20 mg tablet See Rx Instructions .Route 10/15/24 09/15/25 Rx .COMPLEX #180 tabs clopidogrel 75 mg tablet 75 mg PO DAILY 03/21/25 09/15/25 History nitroglycerin 0.4 mg sublingual 0.4 mg sublingual Q5M 03/21/25 09/15/25 History tablet pen needle, diabetic 31 gauge x #300 ea 04/05/25 09/15/25 Rx 5/16 (TRUEplus Pen Needle) blood-glucose meter (Accu-Chek #1 ea 05/31/25 09/15/25 Rx Guide Glucose Meter) calcitriol 0.25 mcg capsule See Rx Instructions .Route 06/07/25 09/15/25 Rx .COMPLEX #12 caps insulin regular hum U-500 conc 500 See Rx Instructions .Route 08/09/25 09/15/25 Rx unit/mL(3 mL) subcut pen (Humulin .COMPLEX #45 mL R U-500 (Conc) Insulin Kwikpen) metoprolol tartrate 50 mg tablet 50 mg PO BID 08/31/25 09/15/25 History blood sugar diagnostic (Accu-Chek #100 strips 09/13/25 09/15/25 Rx Guide test strips) Allergies Allergy/AdvReac Type Severity Reaction Status Date / Time hydrocodone Allergy Severe rash Verified 09/15/25 23:47 adhesive tape Allergy Unknown rash Verified 09/15/25 23:47 cefdinir Allergy Unknown rash Verified 09/15/25 23:47 peach Allergy Unknown Anaphylactic Verified 09/15/25 23:47 Shock,throat closes,throat closes,Anaphylactic prochlorperazine Allergy Unknown Verified 09/15/25 23:47 adhesive AdvReac Intermediate TAPE= RASH Verified 09/15/25 23:47 DYE USED FOR CLOTHING Allergy Unknown SWELLING, Uncoded 08/31/25 13:20 INFECTION FROM DYE Vital Signs Vital Signs - 24 hr 09/15/25 23:20 09/15/25 23:44 09/16/25 00:00 Temperature 97.8 F Pulse Rate 111 H 109 H Respiratory Rate 16 Blood Pressure 119/78 Pulse Oximetry 98 98 Oxygen Delivery Room Air 09/16/25 00:47 09/16/25 01:06 09/16/25 01:52 Temperature 98.8 F Pulse Rate 110 H 84 78 Respiratory Rate 16 Blood Pressure 122/70 Pulse Oximetry 99 Oxygen Delivery Exam Const: General: comfortable and no acute distress Other: A&O x3, dry mucous membranes Eyes: Pupils: Equal, round and reactive pupils present Neck: Neck: supple Resp: Effort & Inspection: normal respiratory effort Auscultation: clear to auscultation bilaterally Cardio: Rate: regular rate Rhythm: regular rhythm GI: Inspection: non-distended GI Palp: Yes Soft to palpation : General: Yes bladder normal to palpation Neuro: Other: Globally weak, symmetric. Poor skin turgor Extrem: General: no edema Results Labs Labs: BMP 09/16/25 00:02 Sodium 139 Potassium 3.3 L Chloride 110 H Carbon Dioxide 12 L BUN 84 H Creatinine 6.46 H Glucose 201 H Calcium 8.9 Cardiac Enzymes 09/16/25 Range/Units 00:02 Total Creatine Kinase > 13127 H (30-135) U/L Troponin I 0.127 H* (0.000-0.034) ng/mL Liver Function 09/16/25 Range/Units 00:02 Total Bilirubin 0.8 (0.2-1.3) mg/dL AST 402 H (14-36) U/L ALT 103 H (6-35) U/L Alkaline Phosphatase 92 (38-126) U/L Albumin 3.7 (3.5-5.1) g/dL Assessment and Plan Assessment and plan (1) Essential hypertension: Code(s): I10 - Essential (primary) hypertension Status: Acute (2) JOSE E (acute kidney injury): Code(s): N17.9 - Acute kidney failure, unspecified Status: Acute (3) Rhabdomyolysis: Qualifiers: Encounter type: initial encounter Rhabdomyolysis type: traumatic Qualified Code(s): T79.6XXA - Traumatic ischemia of muscle, initial encounter Code(s): M62.82 - Rhabdomyolysis Status: Inactive (4) NSTEMI (non-ST elevated myocardial infarction): Code(s): I21.4 - Non-ST elevation (NSTEMI) myocardial infarction Status: Acute (5) Hyperosmolality and hypernatremia: Code(s): E87.0 - Hyperosmolality and hypernatremia Status: Acute (6) Hypokalemia: Code(s): E87.6 - Hypokalemia Status: Acute (7) Urinary tract infection: Qualifiers: Hematuria presence: without hematuria Urinary tract infection type: site unspecified Qualified Code(s): N39.0 - Urinary tract infection, site not specified Code(s): N39.0 - Urinary tract infection, site not specified Status: Acute Plan Patient presents with fall, long down time, rhabdomyolysis with acute renal failure. PT/OT, ambulate with assistance, fall precautions. Initially spoke with Nephrology on the phone when performing intake from [facility] ER physician. Patient received normal saline. Repeat serum creatinine slightly improved, hypernatremia improved, anion gap improved, only worsening values serum bicarb from 15-12. At this time will continue sodium chloride at 150 cc/hour and reach out to Nephrology about use of bicarbonate. Troponin is stable at 0.127, we can repeat this as well. Transaminitis is improving. Continue to trend CK. Continue Zosyn renally dosed. Follow urine culture and blood culture. Resume TAXI SERVICER aspirin and Plavix for pre-existing coronary artery disease. Accu-Cheks a.c. HS, low-dose insulin sliding scale with hypoglycemia protocol in hold any prior insulin due to decreased kidney function and acute in the/weakness. Replacing potassium, check magnesium. C diff was negative but she has ongoing multiple loose stools, going on for 6 days now. Nonbloody, no fever. No leukocytosis. Abdominal exam is benign. Check stool studies including culture, Giardia, ova and parasites, lactoferrin, Shiga toxin. Start BRAT diet. No respiratory complaints. Patient wishes to be full code. SCDs. Expected length of stay greater than 2 midnights. Prior Studies I have reviewed the following patient records and this information was taken into consideration when formulating the assessment and plan.: previous labs, previous ER visits, previous hospitalizations and previous clinic visits Consultations Consultations: I have discussed the care of this pt with the consulting providers. (Nephrology) Time Spent with Patient Time with patient: 45 - 74 minutes Hospitalist [facility] Advance Care Plan I have confirmed that the patient's Advanced Care Plan is present, code status is documented, or surrogate decision maker is listed in patient medical record.: Yes Medication Reconciliation I have utilized all available resources to obtain, update and review the patients current medications (includes all prescriptions, OTC, herbals, cannabis, and nutritional supplements).: Yes
[2025-09-16 03:26] LABS: Magnesium 1.8 mg/dL (1.6-2.3)
[2025-09-16 04:47] LABS: Hematocrit 43.3 % (37.0-47.0); Hemoglobin 14.1 g/dL (12.0-15.0); Immature Granulocyte Percent A 0.8 % (0-0.5); Lymphocytes Absolute Auto 0.84 K/mm3 (0.9-3.2); Mean Corpuscular HGB Conc 32.6 g/dl (32-36); Mean Corpuscular Hemoglobin 27.8 pg (26-34); Mean Corpuscular Volume 85.4 fl (80-100); Nucleated Red Blood Cells Absolute Auto 0.000 K/mm3 (0.0-0.012); Nucleated Red Blood Cells Perc 0.0 % (0.0-0.2); Platelet Count Result 195 k/mm3 (150-375); Red Blood Count 5.07 M/mm3 (4.2-5.4); White Blood Count 10.8 K/mm3 (4.5-10.0)
[2025-09-16 05:04] LABS: Alanine Aminotransferase 99 U/L (6-35); Albumin Level 3.6 g/dL (3.5-5.1); Alkaline Phosphatase 92 U/L (38-126); Anion Gap 15 mmol/L (4-12); Aspartate Amino Transferase 349 U/L (14-36); Bilirubin,Total 0.7 mg/dL (0.2-1.3); Blood Urea Nitrogen 89 mg/dL (7-17); Calcium 8.9 mg/dL (8.4-10.2); Carbon Dioxide 15 mmol/L (22-30); Chloride 110 mmol/L (98-107); Estimated CRCL calculation 8 ml/min; Estimated Glomerular Filt Rate 6; Glucose 184 mg/dL (65-110); Magnesium 1.9 mg/dL (1.6-2.3); Potassium 3.3 mmol/L (3.4-5.0); Sodium 140 mmol/L (137-145); Total Protein 7.1 g/dL (6.3-8.2)
[2025-09-16 05:17] LABS: Troponin I 0.120 ng/mL (0.000-0.034)
[2025-09-16 05:44] LABS: Creatine Kinase 15288 U/L (30-135)
[2025-09-16] MEDS: SODIUM BICARBONATE 8.4% 150 MEQ in DEXTROSE 5% 1,000 ML 950 ML 200 MEQ IV CONT ×2 (06:27→12:06)
--- OUTSIDE RECORDS SUMMARY | 2025-09-16 07:39 | XMS_ITS ---
Author Organization [facility] Address [address] [place] [address] Care Team Providers Care Tapeman Name Role Phone James Candelariah Primary Care Provider Active Problems Problem Noted Date Diagnosed Date Breast cancer 04/26/2025 Severe obesity 03/01/2025 Syncope and collapse 11/21/2023 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 History of COVID-19 11/14/2023 Meningioma 11/14/2023 S/P CABG (coronary artery bypass graft) 11/14/19 24 Anemia 05/21/2022 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, unspecified vessel or lesion type, unspecified whether [place] or transplanted heart 04/27/2022 Atypical chest pain 03/20/2022 Morbid (severe) obesity due to excess calories 0 03/20/2022 Body mass index 40.0-44.9, adult ([facility]) 03/20 Morbid obesity 09/12/2021 NIMA (obstructive sleep apnea) 09/12/2021 Proteinuria 07/05/2019 Systolic ejection murmur 06/19/2019 Calculus of kidney 05/29/2017 Coronary artery disease of n ative artery of [place] heart with stable angina pectoris 03/20/2017 Hyperlipidemia [...] GERD (gastroesophageal reflux disease) Hematuria 04/24/2014 Acute [place], inferior wall 04/20/2014 ST elevation myocardial infarction [...] was a mass noted by her primary rotary furnace tender at the time of her annual gynecological [...] exams. However, the patient is moving to [facility] to be closer to her [...]
--- OUTSIDE RECORDS SUMMARY | 2025-09-16 07:39 | XMS_ITS | Clinical Summary ---
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 ASSESSMENT: Right [...] IMAGING WORKUP WILL BE SCHEDULED BY THE [facility]. Narrative 12/09/2013 11:35 AM TAILOR APPRENTICE BILATERAL SCREENING MAMMOGRAM WITH TOMOSYNTHESIS TECHNIQUE: Bilateral [...] IMAGING WORKUP WILL BE SCHEDULED BY THE [facility]. us Zaid Arenas MD IMG MAMMO ORDERABLES Final R esult from Last 3 Months or Most Recently Relevant to Health Maintenance
--- OUTSIDE RECORDS SUMMARY | 2025-09-16 07:39 | XMS_ITS | Clinical Summary ---
Author Organization [facility] Address [address] [place] [id number] Phone Care Team Providers Care Vegetable Sorter Name Role Phone Lorena Anthony MD Primary Care Provider [phone] Allergies Active Allergy Reactions Criticality Noted Date [...] once 6 Active Blood Glucose Monitoring Suppl (Vengo LabsTOUCH VERIO) w/Device kit 0 Active ONETOUCH VERIO [...] 20 MG tablet 1 Active TRUEplus Pen [place] 31G X 8 MM misc 2 Active [...] diabetic kidney complication 10/10/2014 Coronary arteriosclerosis in [place] artery 08/19 Overview (07/05/2019): Overview: CAD (coronary [...] exists Insurance [employer] MEDICARE Care Teams Vegetable Sorter Relationship Specialty Start Date End Date Lorena Anthony MD [address] [facility] [address] [facility] [address] [place] [address] PCP - General Internal Medicine 04/27/20
--- OUTSIDE RECORDS SUMMARY | 2025-09-16 07:39 | XMS_ITS | Clinical Summary ---
Author Organization [facility] Address [address] [place] [address] Care Team Providers Care Drywall Finisher Foreman Name Role Phone Unavailable Primary Care Provider Unavailabl e Source Comments [facility] [employer],non-owned Affiliates and Associated Physician Practices is amultiple site organization consisting of ambulatory clinics and hospital sitesin [place], [place], [place] and [place]. This disclosure is being madepursuant to the Care Everywhere program and may not contain all information available regarding this patient. 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
--- OUTSIDE RECORDS SUMMARY | 2025-09-16 07:39 | XMS_ITS | Clinical Summary ---
Author Organization [facility] Address [address] [place] [address] Care Team Providers Care Brusher Operator Name Role Phone James Candelariah Primary Care Provider Allergies Active Allergy Reactions Criticality Noted Date Comments Adhesive Rash Medium Apricot Anaphylaxis,Rash High 04/23/2022 Other Rash Medium 04/23/2022 Clothing dye [place] Anaphylaxis,Rash High 04/23/2022 Prochlorperazine Anaphylaxis High Medications [...] enteric coated tabletIndication s:Coronary artery disease of [place] artery of [place] heart with stable angina pectoris Take 1 [...] 2 diabetes mellitus (HCC),Coronary artery disease involving [place] coronary artery of [place] heart without angina pectoris TAKE ONE TABLET BY MOUTH DAILY 90 tablet 3 5 Active nitroglycerin (Nitrostat) 0.4 mg SL tabletIndication s:Coronary artery disease involving [place] coronary artery of [place] heart without angina pectoris Place 1 tablet [...] immediate release tabletIndication s:Coronary artery disease of [place] artery of [place] heart with stable angina pectoris Take 1 [...] unspecified vessel or lesion type, unspecified whether [place] or transplanted heart 04/27/2022 Atypical chest pain 03/20/2022 Morbid (severe) obesity due to excess calories 0 03/20/2022 Body mass index 40.0-44.9, adult ([facility]) 03/20 Morbid obesity 09/12/2021 NIMA (obstructive sleep apnea) 09/12/2021 Proteinuria 07/05/2019 Systolic ejection murmur 06/19/2019 Calculus of kidney 05/29/2017 Coronary artery disease of n ative artery of [place] heart with stable angina pectoris 03/20/2017 Hyperlipidemia [...] GERD (gastroesophageal reflux disease) Hematuria 04/24/2014 Acute [place], inferior wall 04/20/2014 ST elevation myocardial infarction [...] was a mass noted by her primary senior contract specialist at the time of her annual gynecological [...] exams. However, the patient is moving to [facility] to be closer to her son and grandchildren. 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 She states she likely will not be following up with this in the future. Pseudophakia 06/22/2011 Encounters Date Type Department Care Team Description 07/06/2025 10:30 AM CDT Office Visit [facility] Card[facility] [address] [place] [address] Giovanna Oconnor NP Coronary artery disease of [place] artery of [place] heart with stable angina pectoris (Primary Dx); Hyperlipidemia associated with type 2 diabetes mellitus (HCC); Preoperative cardiovascular examination 07/02/2025 Telephone [facility] Obstetrics and Gynecology [address] [facility] [address] [place] [address] [place] [address] Skylar Cornejo RN 06/25/2025 Telephone [facility] Obstetrics and Gynecology [address] [facility] [facility] [address] [place] [address] [place] [address] Johanny Abreu RN 06/24/2025 Telephone [facility] Obstetrics and Gynecology [address] [facility] 13th [place] [address] [place] [address] Imani Hirsch RN from Last 3 Months [...] 08/19/2014 - Sleep apnea Coronary artery disease NE (myocardial infarction) (HCC) Hypertension Type 2 diabetes mellitus PONV (postoperative nausea and vomiting) Cataract Motion sickness CKD (chronic kidney disease) Kidney stone Malignant neoplasm of left breast (HCC) Deafness in right ear Awareness under anesthesia Heart murmur 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, unspecified vessel or lesion type, unspecified whether [place] or transplanted heart Chronic pain disorder Brain [...] on file Legal Sex Female 3:26 AM SEWAGE PLANT SUPERVISOR Gender Identity Female 05/22/2019 11:23 AM CDT Sexual Orientation Straight 10/24/2021 7: 58 AM SEWAGE PLANT SUPERVISOR Last Filed Vital Signs Vital Sign Reading [...] 12/09/2013, 12/06/2012 Medical Devices Implanted Type Area Contract Lead Device Identifier Shelf Expiration Date Model / Serial / Lot [employer] Resolute Efren 4mm 2.1-2.7fr 18mm 140cm Rapid Exchange Radiopaque [id number] - [id number] Implanted:Qty: 1 on 04/27/2022 by Logan Ceron MD at [facility] [employer] 01/06/2025 [id number] X / / [id number] [employer] Resolute Meridian 4mm 2.1-2.7fr 18mm 140cm Rapid Exchange Radiopaque [id number] - [id number] Implanted:Qty: 1 on 04/27/2022 by Logan Ceron MD at [facility] [employer] 08/22/2024 [id number] X / / [id number] [employer] Angio-Seal Vip 6fr Closere Device [id number] - [id number] Implanted:Qty: 1 on 04/27/2022 by Logan Ceron MD at [facility] [employer] AGLIKECHARITY 02/10/2023 [id number] / [id number] Procedures Procedure Name Priority Date/Time Associated Diagnosis [...] AM CDT) eGFR 14 mL/min/1.7 3 m2 [facility] Comment: Interpretive Data Reference Interval Normal >/= 90 mL/min/1.73m2 Mildly decreased* 60 - 89 mL/min/1.73m2 Mildly to moderately decreased 45 - 59 mL/min/1.73m2 Moderately to severely decreased 30 - 44 mL/min/1.73m2 Severely decreased 15 - 29 mL/min/1.73m2 Kidney Failure < 15 mL/min/1.73m2 *Relative to young adult level If -Bulgarian multiply value by 1.16. Estimated glomerular filtration [...] [facility] [place]/ZIP Co de Phone Number [facility] [address] [place] [address] * (ABNORMAL) Hemoglobin A1c (01/29/2017 12:02 PM CDT) Hgb A1C 11.2(H) 4.0 - 6.0 % [facility] Blood specimen (specimen) 01/29/2017 12:02 PM CDT 01/29/2017 1:45 PM CDT us Will Mcmahon MD LAB BLOOD ORDERABLES Final Re sult Performing Organization Address City/[facility]/ZIP Co de Phone Number [facility] [address] [place] [address] from Last 3 Months or Most Recently Relevant to Health Maintenance Insurance UHC MEDICARE ADVANTAGE UHC MEDICARE ADVANTAGE MEDICARE ADVANTAGE Care Teams Brusher Operator Relationship Specialty Start Date End Date James Candelaria DO [address] [place] [address] PCP - General Family Medicine 01/28/24
--- OUTSIDE RECORDS SUMMARY | 2025-09-16 07:39 | XMS_ITS | Patient Health Record ---
Author Organization [facility] Address [address] [place], [place] [id number] Care Team Providers Care Polishing Machine Operator Helper Name Role Phone BOUBACAR SPENCER Unavailable [phone] James Candelaria Unavailable Unavailable ANDREWCassidy NDE Unavailable [phone] FARNAZ VASQUEZ Unavailable [phone] Allergies Allergen (clinical drug ingredient) Drug/Non Drug [...] Duration: 24 Days Active TRUEplus 5-Bevel [place] 31G X 8 MM Miscellaneous ; Duration: [...] 07/15/2025 Encounters Encounter Location Date Provider Diagnosis [address] [id number] 10/01/2024 FARNAZ VASQUEZ Xerosis cutis L85.3 ; Tinea unguium B35.1 ; Unspecified atherosclerosis of [place] arteries of extremities, bilateral legs I70.203 ; Pain in right toe(s) M79.674 ; Pain in left toe(s) M79.675 ; Type 2 diabetes mellitus with diabetic peripheral angiopathy without gangrene E11.51 ; Acquired keratosis [keratoderma] palmaris et plantaris L85.1 ; Pain in right foot M79.671 and Pain in left foot M79.[address] [id number] 03/11/2025 BOUBACAR GARCIAFORD Tinea unguium B35.1 ; Pain in right toe(s) M79.674 ; Pain in left toe(s) M79.675 ; Atherosclerosis of [place] arteries of extremities with intermittent claudication, bilateral legs I70.213 and Type 2 diabetes mellitus with other circulatory complications E11.[address] [id number] 05/13/2025 BOUBACAR JOHANNA Tinea unguium B35.1 ; Pain in right toe(s) M79.674 ; Pain in left toe(s) M79.675 ; Atherosclerosis of [place] arteries of extremities with intermittent claudication, bilateral legs I70.213 ; Type 2 diabetes mellitus with other circulatory complications E11.59 and Acquired keratoderma L85.[address] [id number] 07/15/2025 BOUBACAR SPENCER Tinea unguium B35.1 ; Pain in right toe(s) M79.674 ; Pain in left toe(s) M79.675 ; Atherosclerosis of [place] arteries of extremities with intermittent claudication, bilateral legs I70.213 ; Acquired keratoderma L85.1 and Type 2 diabetes mellitus with other circulatory complications E11.[address] [id number] 12/17/2024 NED OSHEA Tinea unguium B35.1 ; Pain in right toe(s) M79.674 ; Pain in left toe(s) M79.675 ; Atherosclerosis of level[place] arteries of extremities with intermittent claudication, bilateral [...] (ICD-10 - M79.674) 10/01/2024 Unspecified atherosclerosis of level[place] arteries of extremities, bilateral legs (ICD-10 - I70.203) Patient educated on risks and aggravating factors of PVD, including conservative treatment options such as a diet and exercise regimen to aid in slowing progression of vascular disease 10/01/2024 Pain in right toe(s) (ICD-10 - M79.674) 12/17/2024 Pain in left toe(s) (ICD-10 - M79.675) 03/11/2025 Pain in left toe(s) (ICD-10 - M79.675) 05/13/2025 Atherosclerosis of level[place] arteries of extremities with intermittent claudication, bilateral legs (ICD-10 - I70.213) Patient educated on risks and aggravating factors of PVD, including conservative treatment options such as a diet and exercise regimen to aid in slowing progression of vascular disease. Check and protect LE bilateral daily. Call if any changes or concerns. 07/15/2025 Atherosclerosis of levelock arteries of extremities with intermittent claudication, bilateral [...] to healthy appearing skin. 03/11/2025 Atherosclerosis of levelock arteries of extremities with intermittent claudication, bilateral [...] any changes or concerns. 12/17/2024 Atherosclerosis of levelock arteries of extremities with intermittent claudication, bilateral [...] Provider Name:BOUBACAR Tonny CHRISTIANSON, 09/23/2025 10:30:00 AM, [address] [place] [address], [phone], Insurance Providers Payer Name Payer Address Payer Phone Subscriber Number Group Number Insured Name Patient Relationship to Insured Coverage Start Date Coverage End Date A[employer] MedicareCo mplete ([facility]) [address] [place], [place] [phone] [phone] [id number] LIZZY JARVIS Self - patient is the insured
--- OUTSIDE RECORDS SUMMARY | 2025-09-16 07:40 | XMS_ITS | Encounter Summary ---
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
--- OUTSIDE RECORDS SUMMARY | 2025-09-16 07:40 | XMS_ITS | Clinical Summary ---
Author Organization [facility] Address [address] [place] [address] Care Team Providers Care Railcar Switchman Name Role Phone Unavailable Primary Care Provider Unavailabl e Social History Tobacco Use Types Packs/Day Years Used Date Smoking Tobacco: Never Assessed Comments Unknown Sex and Gender Information Value Date Recorded Sex Assigned at Not on file Legal Sex Female 11:13 PM RN PICU Gender Identity Not on file Sexual Orientation Not on file Last Filed Vital Signs Vital Sign Reading Time Taken Comments Blood Pressure - - Pulse - - Temperature - - Respiratory Rate - - Oxygen Saturation - - Inhaled Oxygen Concentration - - Weight 113.4 kg (250 lb) 08/30/2015 3:53 PM RN PICU Height 167.6 cm (5' 6) 08/30/2015 3:53 PM RN PICU Body Mass Index 40.35 08/30/2015 3:53 PM RN PICU Plan of Treatment Health Maintenance Due Date [...]
--- OUTSIDE RECORDS SUMMARY | 2025-09-16 07:40 | XMS_ITS | Clinical Summary ---
Author Organization [facility] Address [address] [place] [address] Phone Care Team Providers Care Director Machine Name Role Phone Lorena Anthony MD Primary Care Provider [phone] Allergies Active Allergy Reactions Criticality Noted Date Comments Adhesive Unknown Medium 11/14/2023 Cefdinir Unknown 11/14/2023 Hydrocodone Unknown 11/14/2023 [place] Anaphylaxis High 11/16/2023 Prochlorperazine Unknown 11/14/2023 Medications [...] 11/14/2023 History of COVID-19 11/14/2023 Atherosclerosis of [place] co ronary artery of [place] heart without angina pectoris 11/14/2023 S/P CABG [...] on file Legal Sex Female 7:46 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 Gender Identity Not on file Sexual Orientation Not on file Last Filed Vital Signs Vital Sign Reading Time Taken Comments Blood Pressure 153/60 11/16/2023 7:23 AM 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 Pulse 66 11/16/2023 7:23 AM 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 Temperature 36.7 C (98.1 F) 11/16/2023 8:07 AM 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 Respiratory Rate 21 11/16/2023 7:23 AM 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 Oxygen Saturation 96% 11/16/2023 7:23 AM 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 Inhaled Oxygen Concentration - - Weight 104.6 kg (230 lb 11.2 oz) 11/14/2023 2:26 AM 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 Height 167.6 cm (5' 6) 11/14/2023 2:26 AM 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 Body Mass Index 37.24 11/14/2023 2:26 AM 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 Plan of Treatment Health Maintenance Due Date [...] Advance Directives For more information, please contact: [phone] * Full Code (Latest Code Status on File) Date Activated Date Inactivated Comments 11/14/2023 5:11 AM 11/16/2023 3:51 PM Care Teams Director Machine Relationship Specialty Start Date End Date Lorena Anthony MD [address] [facility] [address] [place] [address] PCP - General Family Practice 11/14/23
[2025-09-16 08:41] LABS: Alanine Aminotransferase 89 U/L (6-35); Albumin Level 3.3 g/dL (3.5-5.1); Alkaline Phosphatase 73 U/L (38-126); Anion Gap 14 mmol/L (4-12); Aspartate Amino Transferase 293 U/L (14-36); Bilirubin,Total 0.7 mg/dL (0.2-1.3); Blood Urea Nitrogen 91 mg/dL (7-17); Calcium 8.6 mg/dL (8.4-10.2); Carbon Dioxide 15 mmol/L (22-30); Chloride 109 mmol/L (98-107); Glucose 224 mg/dL (65-110); Potassium 3.9 mmol/L (3.4-5.0); Sodium 138 mmol/L (137-145); Total Protein 6.8 g/dL (6.3-8.2)
[2025-09-16 08:47] LABS: Estimated CRCL calculation 9 ml/min; Estimated Glomerular Filt Rate 7
[2025-09-16] MEDS: ASPIRIN 81 MG ENTERIC TABLET PO (08:49)
[2025-09-16] MEDS: CLOPIDOGREL BISULFATE 75 MG TABLET PO (08:49)
[2025-09-16] MEDS: INSULIN ASPART (*BKC) 100 UNITS/ML SUB-Q ×4 (12:05→21:10)
--- NOTE | 2025-09-16 13:42 | P.CONNP_ITS ---
Assessment and Plan Assessment and plan (1) Acute kidney injury: Code(s): N17.9 - Acute kidney failure, unspecified Status: Acute Assessment and Plan: * ongoing deterioration noted * as noted by labs on presentation/admission (creatinine 6.9mg/dL) * multifactorial etiology: * #3 * prerenal factors (diarrhea) * diuretic use prior to admission * infection (UTI?) * other(? * check urine studies and renal ultrasound; follow trend of CPK * on bicarb gtt for urinary alkalinization along with metabolic acidosis * follow volume status closely * consider force diuresis if needed * remains at risk for RUBBER PROCESS HAND/dialysis * however, not needed at this time (no critical electrolytes, worsening acidosis, volume overload or signs of uremia) * follow trend of repeat labs and UOP (2) Stage 4 chronic kidney disease: Code(s): N18.4 - Chronic kidney disease, stage 4 (severe) Status: Chronic Assessment and Plan: * baseline creatine has been running ~ 2.0 - 2.7mg/dl in the last couple of years * though to be secondary to DM, HTN, vascular disease, and age-related changes based on outpatient evaluation: * fluctuations in kidney function seem to be related to issues and problems with recurrent kidney stones/nephrolithiasis as well as UTIs (3) Rhabdomyolysis: Code(s): M62.82 - Rhabdomyolysis Status: Acute Assessment and Plan: * as noted by elevated CPK levels * presumably precipitated by #4 * follow trend of CPK (4) Status post fall: Code(s): Z91.81 - History of falling Status: Acute Assessment and Plan: * as noted by admission history * mechanical in nature * PT/OT as tolerated (5) Diarrhea: Code(s): R19.7 - Diarrhea, unspecified Status: Acute Assessment and Plan: * CT of A/P negative * imodium PRN * stool studies ordered * on antibiotics (6) Urinary tract infection: Qualifiers: Hematuria presence: without hematuria Urinary tract infection type: s ite unspecified Qualified Code(s): N39.0 - Urinary tract infection, site not specified Code(s): N39.0 - Urinary tract infection, site not specified Status: Acute Assessment and Plan: * admission UA suggestive * follow culture results * already on antibiotics for #5 (7) Essential hypertension: Code(s): I10 - Essential (primary) hypertension Status: Acute Assessment and Plan: * reasonable control * follow trend of hemodynamics (8) Type 2 diabetes mellitus with diabetic chronic kidney disease: Qualifiers: Chronic kidney disease stage: stage 4 (severe) Diabetes mellitus correction insulin use: with truck terminal manager use Qualified Code(s): E11.22 - Type 2 diabetes mellitus with diabetic chronic kidney disease; N18.4 - Chronic kidney disease, stage 4 (severe); Z79.4 - long-term (current) use of insulin Code(s): E11.22 - Type 2 diabetes mellitus with diabetic chronic kidney disease Status: Acute Assessment and Plan: * follow accucheks * glycemic control per hospitalist Long and extensive discussion (> 20 minutes) with patient and her son at bedside regarding her worsening renal function and the concern that she may need further intervention in the form of renal replacement therapy/dialysis if her kidney function fails to improve with conservative therapy. They both appeared to voice understanding and are hoping that this therapy/treatment will not be needed. I will continue to follow the patient with you while she remains hospitalized and make further recommendations as deemed necessary. Thank you for allowing me to participate in the care of this patient. L History of Present Illness Reason for Consult Consult date: 09/16/25 Reason for consult: acute renal failure (on chronic kidney disease) Chief Complaint Chief complaint: rhabdomyolosis History of Present Illness Narrative: The patient is a 75-year-old female with a past medical history as outlined below who initially presented to [place] to the [facility] emergency room yesterday after a fall. Apparently, the patient had a mechanical fall around 3:00 p.m. on 09/14 but was unable to get up following the fall. She stayed on the floor until she was found by her family approximately 24 hours later. She gave no history of loss of consciousness head trauma, dizziness, lightheadedness, palpitations, or chest discomfort prior to or after the fall. prior to the fall, she reports that she was having diarrhea for the past 2 - 3 days as well. After being found by her son, EMS was called and she was subsequently transported to the emergency room for further assessment Workup and evaluation emergency room demonstrated the patient to be hemodynamically stable and afebrile Although she was noted be slightly tachycardic. Routine blood work demonstrated white blood cell count of 10.3, hemoglobin 16.2, platelet count 221, sodium 146, BUN 77, creatinine 6.9, lactic acid 2.0, calcium 9.5, elevated liver function tests, and a total CPK greater than 16,000. Her urinalysis was highly suggestive of urinary tract infection with positive nitrite, positive leukocyte esterase, positive white blood cells, and bacteria. Her chest x-ray showed mild CHF although her respiratory status appeared to be stable. She was given a L of normal saline and after appropriate cultures were obtained, was initiated on IV antibiotics for her presumed urinary tract infection. Given the findings of her severe renal dysfunction, she was transferred to [facility] for further evaluation and therapy. Since her admission to the hospital, her renal function still remains abnormal and appears to be tolerating IV fluid resuscitation but repeat CPK level still are quite elevated consistent with rhabdomyolysis. Renal consultation was requested due to her acute kidney injury/acute renal failure on top of her baseline chronic kidney disease. The patient is somewhat familiar to me as I take care of her in the office for management of her known chronic kidney disease. Her baseline creatinine has fluctuated anywhere from 2.0-2.7 mg/dL for last few years and is thought to be secondary to a combination of her diabetes, hypertension, vascular disease, as well as age-related changes with some contributions from her recurrent kidney stone/nephrolithiasis as well as her urinary tract infections. I actually saw the patient about a month ago and she was doing reasonably well with relative stability in her renal function on that office visit. The presumed etiology of her acute kidney injury is thought to be secondary to rhabdomyolysis given that her CPK levels have been extremely elevated since her presentation to the outside hospital emergency room. In spite of her worsening renal parameters, she has no critical electrolyte abnormalities or evidence of volume overload or uremia although she does have a mild metabolic acidosis which is being treated with bicarb IV fluids. Currently, at the time my evaluation, she does not appear to be in any acute distress. Review of Systems 2 Review of Systems: As per HPI. [facility] Past Medical History Medical History History of left heart catheterization Chronic obstructive pulmonary disease Per patient report she had PFTs done in [place] however if she saw the supervisory forester here who stated he did not see any signs and symptoms of COPD and that the patient refused to have a PFT or obstructive sleep studies performed. Insulin dependent type 2 diabetes mellitus Coronary artery disease Chronic kidney disease, stage 4 (severe) Cancer of left breast Status post lumpectomy and chemoradiation. Gastroesophageal reflux disease Morbid (severe) obesity due to excess calories Type 2 diabetes mellitus with diabetic chronic kidney disease Cholelithiasis Kidney stone Hypertension Arthritis Surgical History Surgical History History of wisdom tooth extraction History of heart artery stent History of bilateral cataract extraction History of lumpectomy of left breast History of extraction of renal calculus Family History Family History Mother Family history of diabetes mellitus in first degree relative Cancer CHF (congestive heart failure), NYHA class I Diabetes mellitus Family history of cardiovascular disease Family history of congestive heart failure Family history of hearing loss Family history of heart disease in male family member before age 55 Heart disease Family history of thyroid disease Thyroid disease Hypertension Father Cancer CHF (congestive heart failure), NYHA class I Family history of arthritis Family history of cardiovascular disease Family history of congestive heart failure Family history of hearing loss Family history of heart disease in male family member before age 55 Heart disease Family history of obesity Sibling CHF (congestive heart failure), NYHA class I Other Family history of malignant neoplasm Social History Social History Social History: 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ion maker: Epi Falk, adore. Code status: Full code. Smoking packs per day: 1 Smoking cigarettes per day: 20.0 Years smoked: 10 Smoking pack-years: 10.00 Smoking status: Former smoker Tobacco type: cigarettes Second hand tobacco smoke exposure: No Smoking end date: 09/21/81 Alcohol intake: current Drinks per week: 1 Alcohol use details: once a month Substance use: never Substance use type: does not use Lack of Transportation: No Lack of Food: Never True Current Housing: I Have Housing Concerned About Future Housing: No Difficulty Paying Gas/Electric Bills: No Difficulty Paying for Meds: YES Currently Unemployed: No Education: Associate Degree Difficulty w/ Childcare or Family Care: No Living arrangements: with family Additional living arrangements comments: Lives in [place]. 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 Gender identity (if verbalized by the patient): Female Spiritual care concerns: No Meds Home Medications and Allergies Home Medications ?Medication ?Instructions ?Recorded ?Confirmed ?Type pantoprazole 40 mg tablet,delayed 40 mg PO HS 01/07/20 09/15/25 History release atorvastatin 80 mg tablet 80 mg PO HS 08/24/20 5 History cholecalciferol (vitamin D3) 50 50 mcg PO HS 02/15/21 09/15/25 History mcg (2,000 unit) capsule aspirin 81 mg tablet,delayed 81 mg PO DAILY 12/13/23 1 11/16/24 History release (Adult Aspirin Regimen) lancets 33 gauge (OneTouch Delica #300 ea 02/03/2401/05 Rx Plus Lancet) furosemide 20 mg tablet See Rx Instructions .Route 0 10/15/24 09/15/25 Rx .COMPLEX #180 tabs clopidogrel 75 mg tablet 75 mg PO DAILY 03/21/2501/05 History nitroglycerin 0.4 mg sublingual 0.4 mg sublingual Q5M 03/21/25 09/15/25 History tablet pen needle, diabetic 31 gauge x #300 ea 04/05/2509/15 Rx 5/16 (TRUEplus Pen Needle) blood-glucose meter (Accu-Chek #1 ea 05/31/25 09/15/25 Rx Guide Glucose Meter) calcitriol 0.25 mcg capsule See Rx Instructions .Route 06/07/25 09/15/25 Rx .COMPLEX #12 caps insulin regular hum U-500 conc 500 See Rx Instructions .Route 08/09/25 09/15/25 Rx unit/mL(3 mL) subcut pen (Humulin .COMPLEX #45 mL R U-500 (Conc) Insulin Kwikpen) metoprolol tartrate 50 mg tablet 50 mg PO BID 08/31/25 09/15/25 History blood sugar diagnostic (Accu-Chek #100 strips 09/13/25 09/15/25 Rx Guide test strips) Allergies Allergy/AdvReac Type Severity Reaction Status Date / Time hydrocodone Allergy Severe rash Verified 09/15/25 23:47 adhesive tape Allergy Unknown rash Verified 09/15/25 23:47 cefdinir Allergy Unknown rash Verified 09/15/25 23:47 peach Allergy Unknown Anaphylactic Verified 09/15/25 23:47 Shock,throat closes,throat closes,Anaphylactic prochlorperazine Allergy Unknown Verified 09/15/25 23:47 adhesive AdvReac Intermediate TAPE= RASH Verified 09/15/25 23:47 DYE USED FOR CLOTHING Allergy Unknown SWELLING, Uncoded 08/31/25 13:20 INFECTION FROM DYE Vital Signs Vital Signs Temp Pulse Resp BP Pulse Ox O2 Del Method 09/16/25 12:00 75 09/16/25 12:00 97.6 F 97 24 H 121/82 92 09/16/25 10:00 70 09/16/25 08:48 113 H 09/16/25 08:00 81 09/16/25 08:00 97.5 F L 80 28 H 145/59 H 96 09/16/25 05:40 80 09/16/25 04:00 77 09/16/25 04:00 98 Room Air 09/16/25 03:42 98.7 F 78 18 112/68 98 09/16/25 01:52 78 09/16/25 01:06 84 09/16/25 00:47 98.8 F 110 H 16 122/70 99 09/16/25 00:00 109 H 09/15/25 23:44 98 Room Air 09/15/25 23:20 97.8 F 111 H 16 119/78 98 Exam 2 Narrative: GENERAL APPEARANCE: elderly but well developed well nourished female in no acute distress HEENT: normocephalic, atraumatic, normal conjunctiva and sclera, nares patient NECK: no lymphadenopathy, thyromegaly, or JVD MOUTH: somewhat dry mucus membranes CARDIOVASCULAR: RRR, normal S1 and S2, no rub RESPIRATORY: clear to auscultation bilaterally ABDOMEN: soft, nontender, nondistended, positive bowel sounds present EXTREMITIES: no evidence of cyanosis, clubbing, or edema NEUROLOGICAL: alert and oriented x 3; generalized weakness noted Results Lab Results 09/21/25 04:14 09/21/25 04:14 Lab results: Most recent lab results Calcium 8.2 mg/dL (8.4-10.2) L 09/16/25 14:46 Phosphorus 5.4 mg/dL (2.5-4.5) H 09/16/25 14:46 Magnesium 1.9 mg/dL (1.6-2.3) 09/16/25 04:16
--- NOTE | 2025-09-16 14:06 | P.PNIM_ITS ---
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 Status: Acute (2) Morbid obesity: Code(s): E66.01 - Morbid (severe) obesity due to excess calories Status: Acute (3) ONEL (acute kidney injury): Code(s): N17.9 - Acute kidney failure, unspecified Status: Acute (4) Chronic renal failure, stage 4 (severe): Code(s): N18.4 - Chronic kidney disease, stage 4 (severe) Status: Chronic (5) Diarrhea: Code(s): R19.7 - Diarrhea, unspecified Status: Acute (6) Rhabdomyolysis: Code(s): M62.82 - Rhabdomyolysis Status: Acute Plan 75-year-old female with past medical history of obesity, CKD stage 4, coronary artery disease, insulin-dependent diabetes presenting to [facility] on 09/15/2025 after a mechanical fall. Then transferred to [facility], patient of Dr. Hdez Nephrology. She has been having diarrhea for 5 days. C diff was negative. On to have Onel I on pre-existing CKD along with severe rhabdomyolysis. 1. Fall: Mechanical Unable to get up for extended period of time PT/OT when appropriate 2. Diarrhea: C diff negative Follow stool culture Obtain CT abdomen pelvis without contrast Brat diet Imodium p.r.n. Continue with Zosyn 3. Onel I on pre-existing CKD stage IV: Rhabdomyolysis Continue with IV fluids Recheck BMP in a.m. Avoid nephrotoxins Trend CPK Obtain renal ultrasound Nephrology has been consulted Will hold statin On bicarb drip Deferred to Nephrology 4. Diabetes mellitus: Blood glucose checked t.i.d. a.c. HS Add Lantus 31 units at nighttime Add mealtime insulin along with sliding scale insulin Adjust dose as needed 5. Code status: Full 6. DVT prophylaxis: Heparin subQ 7. Disposition: Pending improvement Subjective Date/time seen: 09/16/25 14:06 Interval history: Fall Diarrhea Review of Systems Review of Systems: All systems reviewed & are unremarkable except as noted in HPI and below Exam Const: General: comfortable Other: A&O x3, dry mucous membranes Eyes: Pupils: Equal, round and reactive pupils present Neck: Neck: supple Resp: Effort & Inspection: normal respiratory effort Auscultation: clear to auscultation bilaterally Cardio: Rate: regular rate Rhythm: regular rhythm GI: Inspection: non-distended GI Palp: Yes Soft to palpation : General: Yes bladder normal to palpation Neuro: Other: Globally weak, symmetric. Poor skin turgor Extrem: General: no edema Objective Data Vital Signs Vital Signs: Vital Signs - 24 hr 09/15/25 23:20 09/15/25 23:44 09/16/25 00:00 Temperature 97.8 F Pulse Rate 111 H 109 H Respiratory Rate 16 Blood Pressure 119/78 Pulse Oximetry 98 98 Oxygen Delivery Room Air 09/16/25 00:47 09/16/25 01:06 09/16/25 01:52 Temperature 98.8 F Pulse Rate 110 H 84 78 Respiratory Rate 16 Blood Pressure 122/70 Pulse Oximetry 99 Oxygen Delivery 09/16/25 03:42 09/16/25 04:00 09/16/25 04:00 Temperature 98.7 F Pulse Rate 78 77 Respiratory Rate 18 Blood Pressure 112/68 Pulse Oximetry 98 98 Oxygen Delivery Room Air 09/16/25 05:40 09/16/25 08:00 09/16/25 08:00 Temperature 97.5 F L Pulse Rate 80 80 81 Respiratory Rate 28 H Blood Pressure 145/59 H Pulse Oximetry 96 Oxygen Delivery 09/16/25 08:48 09/16/25 10:00 09/16/25 12:00 Temperature 97.6 F Pulse Rate 113 H 70 97 Respiratory Rate 24 H Blood Pressure 121/82 Pulse Oximetry 92 Oxygen Delivery 09/16/25 12:00 Temperature Pulse Rate 75 Respiratory Rate Blood Pressure Pulse Oximetry Oxygen Delivery Intake/Output Intake/Output: Intake & Output 09/13/25 09/14/25 09/15/25 09/16/25 23:59 23:59 23:59 23:59 Intake Total 2440 Output Total 500 Balance 1940 Meds/Results Medications: Active Medications Generic Name Dose Route Start Last Admin Trade Name Freq PRN Reason Stop Dose Admin Acetaminophen 500 mg 09/15/25 23:55 Acetaminophen 500 Mg Tablet PO Q6H PRN Mild Pain (1-3) or Fever Aspirin 81 mg 09/16/25 09:00 09/16/25 08:49 Aspirin 81 Mg Enteric Tablet PO 81 mg DAILY MO Administration Atorvastatin Calcium 80 mg 09/15/25 23:55 09/16/25 01:08 Atorvastatin 40 Mg Tablet PO 80 mg On Hold: 09/16/25 09:30 HS MO Administration Clopidogrel Bisulfate 75 mg 09/16/25 09:00 09/16/25 08:49 Clopidogrel Bisulfate 75 Mg Tablet PO 75 mg DAILY MO Administration Dextrose 12.5 gm 09/15/25 23:51 Dextrose 50% 25 Gm/50 Ml Syringe IV PUSH PRN PRN Hypoglycemia Protocol Glucose 15 gm 09/15/25 23:51 Glucose Oral Gel 15 Gm Of Glucse In 37.5 Gm Tube PO PRN PRN Hypoglycemia Protocol Heparin Sodium (Porcine) 5,000 units 09/16/25 22:00 Heparin Sodium 5,000 Units/Ml Vial SUB-Q Q8HR MO Dextrose 1,000 mls @ 100 mls/hr 09/15/25 23:51 Dextrose 5% 1,000 Ml IVPB PRN PRN Hypoglycemia Protocol Piperacillin Sod/Tazobactam 50 mls @ 100 mls/hr 09/16/25 00:00 09/16/25 09:19 Sod 2.25 gm/ Sodium Chloride IVPB Infused Q8H MO Infusion Sodium Bicarbonate 150 meq/ 1,100 mls @ 200 mls/hr 09/16/25 05:10 09/16/25 12:06 Dextrose IV CONT 200 mls/hr .Q5H30M MO Administration Insulin Aspart 2 - 5 units 09/16/25 08:00 09/16/25 12:05 Insulin Aspart (*Bkc) 100 Units/Ml SUB-Q 2 units TIDWM MO Administration Protocol Insulin Aspart 1 - 2 units 09/16/25 00:05 09/16/25 03:45 Insulin Aspart (*Bkc) 100 Units/Ml SUB-Q Not Given HS MO Protocol Metoprolol Tartrate 50 mg 09/15/25 23:55 09/16/25 08:48 Metoprolol Tartrate 50 Mg Tab PO 50 mg Q12HR MO Administration Pantoprazole Sodium 40 mg 09/15/25 23:55 09/16/25 01:08 Pantoprazole 40 Mg Tablet PO 40 mg HS MO Administration Perflutren Lipid Microsphere 0 ml 09/16/25 09:31 Perflutren Lipid Microspheres 1.5 Ml Vial Diluted To 10 Ml Total Volume IV PUSH 09/19/25 09:31 ONCE PRN adequate visualization Protocol Labs Labs: Laboratory Results - last 24 hr 09/16/25 09/16/25 09/16/25 00:02 04:16 07:22 WBC 10.8 H RBC 5.07 Hgb 14.1 Hct 43.3 MCV 85.4 MCH 27.8 MCHC 32.6 RDW 15.1 H Plt Count 195 MPV 12.4 H Immature Gran % (Auto) 0.8 H Neut % (Auto) 78.8 H Lymph % (Auto) 7.7 L Calloway % (Auto) 11.7 H Eos % (Auto) 0.3 Baso % (Auto) 0.7 Lymph # (Auto) 0.84 L Calloway # (Auto) 1.3 H Eos # (Auto) 0.0 Baso # (Auto) 0.1 Abs Immat Gran (auto) 0.09 H Absolute Neuts (auto) 8.5 H Absolute Nucleated RBC 0.000 Nucleated RBC % 0.0 Sodium 139 140 Potassium 3.3 L 3.3 L Chloride 110 H 110 H Carbon Dioxide 12 L 15 L Anion Gap 17 H 15 H BUN 84 H 89 H Creatinine 6.46 H 6.72 H Estim Creat Clear Calc 8 8 Estimated GFR 6 L 6 L Glucose 201 H 184 H POC Capillary Glucose 185 H Calcium 8.9 8.9 Magnesium 1.8 1.9 Total Bilirubin 0.8 0.7 AST 402 H 349 H ALT 103 H 99 H Alkaline Phosphatase 92 92 Total Creatine Kinase > 57619 H 44729 H Troponin I 0.127 H* 0.120 H* Total Protein 7.3 7.1 Albumin 3.7 3.6 09/16/25 09/16/25 08:20 11:42 WBC RBC Hgb Hct MCV MCH MCHC RDW Plt Count MPV Immature Gran % (Auto) Neut % (Auto) Lymph % (Auto) Calloway % (Auto) Eos % (Auto) Baso % (Auto) Lymph # (Auto) Calloway # (Auto) Eos # (Auto) Baso # (Auto) Abs Immat Gran (auto) Absolute Neuts (auto) Absolute Nucleated RBC Nucleated RBC % Sodium 138 Potassium 3.9 Chloride 109 H Carbon Dioxide 15 L Anion Gap 14 H BUN 91 H Creatinine 5.81 H Estim Creat Clear Calc 9 Estimated GFR 7 L Glucose 224 H POC Capillary Glucose 219 H Calcium 8.6 Magnesium Total Bilirubin 0.7 AST 293 H ALT 89 H Alkaline Phosphatase 73 Total Creatine Kinase Troponin I Total Protein 6.8 Albumin 3.3 L Quality VTE Prophylaxis VTE prophylaxis: pharmacologic ordered
[2025-09-16 15:57] LABS: Albumin Level 3.4 g/dL (3.5-5.1); Anion Gap 14 mmol/L (4-12); Blood Urea Nitrogen 94 mg/dL (7-17); Calcium 8.2 mg/dL (8.4-10.2); Carbon Dioxide 19 mmol/L (22-30); Chloride 102 mmol/L (98-107); Glucose 240 mg/dL (65-110); Potassium 3.0 mmol/L (3.4-5.0); Sodium 135 mmol/L (137-145)
[2025-09-16 16:10] LABS: Estimated CRCL calculation 9 ml/min; Estimated Glomerular Filt Rate 7
[2025-09-16] MEDS: LOPERAMIDE HCL 2 MG CAPSULE PO (16:56)
[2025-09-16] MEDS: POTASSIUM CHLORIDE 20 MEQ ER TABLET 40 MEQ PO (18:09)
[2025-09-16] MEDS: SODIUM BICARBONATE 8.4% 75 MEQ in SODIUM CHLORIDE 0.45% 1,000 ML IV CONT (18:35)
[2025-09-16] MEDS: INSULIN GLARGINE (*BKC) 100 UNITS/ML 31 UNITS SUB-Q (21:10)
[2025-09-17] VITALS (17 sets, daily range): BP systolic 109–144; BP diastolic 57–70; PULSE 67–83; RESP 16–24; TEMP 36.4–36.9; O2SAT 93–98
[2025-09-17] MEDS: PIPERACILLIN/TAZOBACTAM SOD 2.25 GM in SODIUM CHLORIDE 0.9% IV 50 ML 100 ML IVPB ×3 (02:33→17:00)
[2025-09-17 06:21] LABS: Hematocrit 36.1 % (37.0-47.0); Hemoglobin 12.1 g/dL (12.0-15.0); Immature Granulocyte Percent A 1.2 % (0-0.5); Lymphocytes Absolute Auto 1.26 K/mm3 (0.9-3.2); Mean Corpuscular HGB Conc 33.5 g/dl (32-36); Mean Corpuscular Hemoglobin 27.8 pg (26-34); Mean Corpuscular Volume 82.8 fl (80-100); Nucleated Red Blood Cells Absolute Auto 0.000 K/mm3 (0.0-0.012); Nucleated Red Blood Cells Perc 0.0 % (0.0-0.2); Platelet Count Result 161 k/mm3 (150-375); Red Blood Count 4.36 M/mm3 (4.2-5.4); White Blood Count 8.5 K/mm3 (4.5-10.0)
[2025-09-17 06:58] LABS: Alanine Aminotransferase 67 U/L (6-35); Albumin Level 3.0 g/dL (3.5-5.1); Alkaline Phosphatase 81 U/L (38-126); Anion Gap 10 mmol/L (4-12); Aspartate Amino Transferase 154 U/L (14-36); Bilirubin,Total 0.6 mg/dL (0.2-1.3); Blood Urea Nitrogen 103 mg/dL (7-17); Calcium 7.9 mg/dL (8.4-10.2); Carbon Dioxide 23 mmol/L (22-30); Chloride 102 mmol/L (98-107); Estimated CRCL calculation 8 ml/min; Estimated Glomerular Filt Rate 6; Glucose 133 mg/dL (65-110); Magnesium 1.5 mg/dL (1.6-2.3); Potassium 2.9 mmol/L (3.4-5.0); Sodium 135 mmol/L (137-145); Total Protein 6.1 g/dL (6.3-8.2)
[2025-09-17 07:06] LABS: Creatine Kinase 4453 U/L (30-135)
--- NOTE | 2025-09-17 08:11 | PCCARD ---
DID NOT USE DEFINITY ON ECHOCARDIOGRAM PER RN- PATIENT HAD DIARRHEA AND HAD TO BE CLEANED UP
[2025-09-17] MEDS: INSULIN ASPART (*BKC) 100 UNITS/ML SUB-Q ×4 (08:45→21:17)
[2025-09-17] MEDS: POTASSIUM CHLORIDE 20 MEQ PACKET (FOR LIQUID) 40 MEQ PO ×3 (08:50→17:00)
[2025-09-17] MEDS: ASPIRIN 81 MG ENTERIC TABLET PO (08:50)
[2025-09-17] MEDS: METOPROLOL TARTRATE 50 MG TAB PO ×2 (08:50→21:17)
[2025-09-17] MEDS: SODIUM BICARBONATE 8.4% 75 MEQ in SODIUM CHLORIDE 0.45% 1,000 ML IV CONT (08:51)
[2025-09-17] MEDS: CLOPIDOGREL BISULFATE 75 MG TABLET PO (08:51)
[2025-09-17] MEDS: MAGNESIUM SULFATE 3GM/D5W100ML 3 GM/100 ML BAG IVPB (09:00)
[2025-09-17] MEDS: LOPERAMIDE HCL 2 MG CAPSULE PO ×2 (09:05→17:09)
--- NOTE | 2025-09-17 10:30 | P.PNNP_ITS ---
Progress Note: A&P Assessment and Plan (1) Acute kidney injury: Code(s): N17.9 - Acute kidney failure, unspecified Status: Acute Assessment and Plan: * ongoing deterioration noted * as noted by labs on presentation/admission (creatinine 6.9mg/dL) * multifactorial etiology: * #3 * prerenal factors (diarrhea) * diuretic use prior to admission * infection (UTI?) * other(? * evaluation to date noted * renal ultrasound w/o obstruction * urine electrolytes prerenal (by FeUrea) * urine eosinophils negative * moderate prot * UA c/w with infection (culture pending) * CPK downtrending * on bicarb gtt for urinary alkalinization along with metabolic acidosis * follow volume status closely * consider force diuresis if needed * remains at risk for D[facility] ICER/dialysis * however, not urgent need at this time (no critical electrolytes, worsening acidosis, volume overload or signs of uremia) * follow trend of repeat labs and UOP (2) Stage 4 chronic kidney disease: Code(s): N18.4 - Chronic kidney disease, stage 4 (severe) Status: Chronic Assessment and Plan: * baseline creatine has been running ~ 2.0 - 2.7mg/dl in the last couple of years * though to be secondary to DM, HTN, vascular disease, and age-related changes based on outpatient evaluation: * fluctuations in kidney function seem to be related to issues and problems with recurrent kidney stones/nephrolithiasis as well as UTIs (3) Rhabdomyolysis: Code(s): M62.82 - Rhabdomyolysis Status: Acute Assessment and Plan: * as noted by elevated CPK levels * presumably precipitated by #4 * follow trend of CPK (4) Status post fall: Code(s): Z91.81 - History of falling Status: Acute Assessment and Plan: * as noted by admission history * mechanical in nature * PT/OT as tolerated (5) Diarrhea: Code(s): R19.7 - Diarrhea, unspecified Status: Acute Assessment and Plan: * CT of A/P negative * imodium PRN * stool studies pending * on antibiotics (6) Urinary tract infection: Qualifiers: Hematuria presence: without hematuria Urinary tract infection type: s ite unspecified Qualified Code(s): N39.0 - Urinary tract infection, site not specified Code(s): N39.0 - Urinary tract infection, site not specified Status: Acute Assessment and Plan: * admission UA suggestive * follow culture results * already on antibiotics for #5 (7) Essential hypertension: Code(s): I10 - Essential (primary) hypertension Status: Acute Assessment and Plan: * reasonable control * follow trend of hemodynamics (8) Type 2 diabetes mellitus with diabetic chronic kidney disease: Qualifiers: Chronic kidney disease stage: stage 4 (severe) Diabetes mellitus nursing home insulin use: with nursing home use Qualified Code(s): E11.22 - Type 2 diabetes mellitus with diabetic chronic kidney disease; N18.4 - Chronic kidney disease, stage 4 (severe); Z79.4 - snf (current) use of insulin Code(s): E11.22 - Type 2 diabetes mellitus with diabetic chronic kidney disease Status: Acute Assessment and Plan: * follow accucheks * glycemic control per hospitalist Will continue to follow. L Subjective Date/time seen: 09/17/25 10:30 Interval history: Follow-up for acute kidney injury/acute renal failure on chronic kidney disease. Renal function/creatinine deteriorating with diminished urine output noted; CPK is downtrending and denies any chest discomfort or shortness of breath; no other acute issues/events overnight or earlier this morning. Exam 2 Narrative: General: elderly but WD/WN female in NAD Heart: normal S1 and S2; no rub Lungs: clear to auscultation Abdomen: soft, nontender, nondistended, positive bowel sounds Extremities: no cyanosis or clubbing; no edema Skin: warm and dry Objective Data Vital Signs Vital Signs: Vital Signs Temp Pulse Resp BP Pulse Ox O2 Del Method 09/17/25 10:00 77 09/17/25 09:51 Room Air 09/17/25 08:50 82 09/17/25 08:00 70 09/17/25 07:56 Room Air 09/17/25 07:55 97.6 F 77 16 132/70 93 09/17/25 05:47 71 09/17/25 04:00 72 09/17/25 04:00 97.8 F 70 18 132/61 96 09/17/25 03:29 Room Air 09/17/25 02:00 74 09/17/25 00:00 71 09/17/25 00:00 98.5 F 69 18 119/58 L 93 09/17/25 00:00 Room Air 09/16/25 22:00 80 09/16/25 21:08 97 09/16/25 20:00 77 09/16/25 20:00 Room Air 09/16/25 20:00 97.9 F 79 18 132/67 97 09/16/25 17:39 76 Intake/Output Intake/Output: Intake & Output 09/14/25 09/15/25 09/16/25 09/17/25 23:59 23:59 23:59 23:59 Intake Total 3220 1847.5 Output Total 500 201 Balance 2720 1646.5 Meds/Results Medications: Active Medications Generic Name Dose Route Start Last Admin Trade Name Freq PRN Reason Stop Dose Admin Acetaminophen 500 mg 09/15/25 23:55 Acetaminophen 500 Mg Tablet PO Q6H PRN Mild Pain (1-3) or Fever Aspirin 81 mg 09/16/25 09:00 09/17/25 08:50 Aspirin 81 Mg Enteric Tablet PO 81 mg DAILY MO Administration Atorvastatin Calcium 80 mg 09/15/25 23:55 09/16/25 01:08 Atorvastatin 40 Mg Tablet PO 80 mg On Hold: 09/16/25 09:30 HS MO Administration Clopidogrel Bisulfate 75 mg 09/16/25 09:00 09/17/25 08:51 Clopidogrel Bisulfate 75 Mg Tablet PO 75 mg DAILY MO Administration Dextrose 12.5 gm 09/15/25 23:51 Dextrose 50% 25 Gm/50 Ml Syringe IV PUSH PRN PRN Hypoglycemia Protocol Glucose 15 gm 09/15/25 23:51 Glucose Oral Gel 15 Gm Of Glucse In 37.5 Gm Tube PO PRN PRN Hypoglycemia Protocol Heparin Sodium (Porcine) 5,000 units 09/16/25 22:00 09/17/25 14:16 Heparin Sodium 5,000 Units/Ml Vial SUB-Q 5,000 units Q8HR MO Administration Dextrose 1,000 mls @ 100 mls/hr 09/15/25 23:51 Dextrose 5% 1,000 Ml IVPB PRN PRN Hypoglycemia Protocol Piperacillin Sod/Tazobactam 50 mls @ 100 mls/hr 09/16/25 00:00 09/17/25 17:00 Sod 2.25 gm/ Sodium Chloride IVPB 100 mls/hr Q8H MO Administration Sodium Bicarbonate 75 meq/ 1,075 mls @ 30 mls/hr 09/16/25 18:00 09/17/25 09:21 Sodium Chloride IV CONT 30 mls/hr .Q24H MO Infusion Insulin Aspart 2 - 5 units 09/16/25 08:00 09/17/25 17:01 Insulin Aspart (*Bkc) 100 Units/Ml SUB-Q Not Given TIDWM MO Protocol Insulin Aspart 1 - 2 units 09/16/25 00:05 09/16/25 21:10 Insulin Aspart (*Bkc) 100 Units/Ml SUB-Q 1 units HS MO Administration Protocol Insulin Aspart 2 units 09/17/25 17:00 09/17/25 17:01 Insulin Aspart (*Bkc) 100 Units/Ml SUB-Q 2 units TIDWM MO Administration Insulin Glargine 31 units 09/16/25 21:00 09/16/25 21:10 Insulin Glargine (*Bkc) 100 Units/Ml 0.3 units/kg (31 units) 31 units SUB-Q Administration HS MO Loperamide HCl 2 mg 09/16/25 14:06 09/17/25 17:09 Loperamide Hcl 2 Mg Capsule PO 2 mg PRN PRN Administration Diarrhea Metoprolol Tartrate 50 mg 09/15/25 23:55 09/17/25 08:50 Metoprolol Tartrate 50 Mg Tab PO 50 mg Q12HR MO Administration Pantoprazole Sodium 40 mg 09/15/25 23:55 09/16/25 21:08 Pantoprazole 40 Mg Tablet PO 40 mg HS MO Administration Perflutren Lipid Microsphere 0 ml 09/16/25 09:31 Perflutren Lipid Microspheres 1.5 Ml Vial Diluted To 10 Ml Total Volume IV PUSH 09/19/25 09:31 ONCE PRN adequate visualization Protocol Radiology Results: ITS Impressions Retroperitoneum Ultrasound 09/16/25 18:04 IMPRESSION: Nonobstructive right renal stone measures up to 1.4 cm. Bilateral renal cysts. Abdomen/Pelvis CT 09/16/25 20:16 IMPRESSION: No acute abnormality is noted in the abdomen and pelvis. All CT scans at this facility are performed using low dose modulation techniques as appropriate to perform exam including the following: automated exposure control; use of iterative reconstruction technique; adjustment of the mA and/or kV according to patient size (this includes techniques or standardized protocols for targeted exams where dose is matched to indication/reason for exam). Chest X-Ray 09/17/25 09:25 IMPRESSION: 1. No acute cardiopulmonary disease. Labs Labs: Laboratory Tests 09/17/25 05:15 09/17/25 05:15 Calcium 7.9 L Magnesium 1.5 L Total Bilirubin 0.6 AST 154 H ALT 67 H Alkaline Phosphatase 81 Total Creatine Kinase 4453 H Total Protein 6.1 L Albumin 3.0 L Microbiology 09/16/25 09:14 Stool Giardia Antigen Screen - Final
[2025-09-17 11:22] LABS: Hepatitis B Surface Antigen Negative (Negative)
[2025-09-17 11:40] LABS: Hepatitis B Surface Anti Res Negative
--- NOTE | 2025-09-17 12:33 | PM.IMPN2 ---
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 Status: Acute (2) Morbid obesity: Code(s): E66.01 - Morbid (severe) obesity due to excess calories Status: Acute (3) ONEL (acute kidney injury): Code(s): N17.9 - Acute kidney failure, unspecified Status: Acute (4) Chronic renal failure, stage 4 (severe): Code(s): N18.4 - Chronic kidney disease, stage 4 (severe) Status: Chronic (5) Diarrhea: Code(s): R19.7 - Diarrhea, unspecified Status: Acute (6) Rhabdomyolysis: Code(s): M62.82 - Rhabdomyolysis Status: Acute Plan 75-year-old female with past medical history of obesity, CKD stage 4, coronary artery disease, insulin-dependent diabetes presenting to [facility] on 09/15/2025 after a mechanical fall. Then transferred to [facility], patient of Dr. Hdez Nephrology. She has been having diarrhea for 5 days. C diff was negative. On to have Onel I on pre-existing CKD along with severe rhabdomyolysis. 1. Fall: Mechanical Unable to get up for extended period of time PT/OT when appropriate 2. Diarrhea: improving slowly C diff negative Follow stool culture CT abdomen pelvis without contrast was unremarkable Brat diet Imodium p.r.n. Continue with Zosyn 3. Onel I on pre-existing CKD stage IV: Rhabdomyolysis Continue with IV fluids Recheck BMP in a.m. Avoid nephrotoxins Trend CPK, improving renal ultrasound shows nonobstructive kidney disease Nephrology following Will hold statin On bicarb drip monitor urine output supplement potassium, magnesium ? need for dialysis, will defer to Nephrology 4. Diabetes mellitus: Blood glucose checked t.i.d. a.c. HS continue with Lantus 31 units at nighttime Add 2 units mealtime insulin along with sliding scale insulin Adjust dose as needed 5. Code status: Full 6. DVT prophylaxis: Heparin subQ 7. Disposition: Pending improvement Time Spent With Patient Time with patient: 25 - 35 minutes Subjective Date/time seen: 09/17/25 12:33 Interval history: poor urine output overnight Review of Systems Review of Systems: All systems reviewed & are unremarkable except as noted in HPI and below Exam Const: General: comfortable Other: A&O x3, dry mucous membranes Eyes: Pupils: Equal, round and reactive pupils present Neck: Neck: supple Resp: Effort & Inspection: normal respiratory effort Auscultation: clear to auscultation bilaterally Cardio: Rate: regular rate Rhythm: regular rhythm GI: Inspection: non-distended GI Palp: Yes Soft to palpation : General: Yes bladder normal to palpation Neuro: Other: Globally weak, symmetric. Poor skin turgor Extrem: General: no edema Objective Data Vital Signs Vital Signs: Vital Signs - 24 hr 09/16/25 14:00 09/16/25 16:00 09/16/25 16:00 Temperature 98.0 F Pulse Rate 76 73 74 Respiratory Rate 24 H Blood Pressure 144/64 H Pulse Oximetry 98 Oxygen Delivery 09/16/25 17:39 09/16/25 20:00 09/16/25 20:00 Temperature 97.9 F Pulse Rate 76 79 Respiratory Rate 18 Blood Pressure 132/67 Pulse Oximetry 97 Oxygen Delivery Room Air 09/16/25 20:00 09/16/25 21:08 09/16/25 22:00 Temperature Pulse Rate 77 97 80 Respiratory Rate Blood Pressure Pulse Oximetry Oxygen Delivery 09/17/25 00:00 09/17/25 00:00 09/17/25 00:00 Temperature 98.5 F Pulse Rate 69 71 Respiratory Rate 18 Blood Pressure 119/58 L Pulse Oximetry 93 Oxygen Delivery Room Air 09/17/25 02:00 09/17/25 03:29 09/17/25 04:00 Temperature 97.8 F Pulse Rate 74 70 Respiratory Rate 18 Blood Pressure 132/61 Pulse Oximetry 96 Oxygen Delivery Room Air 09/17/25 04:00 09/17/25 05:47 09/17/25 07:55 Temperature 97.6 F Pulse Rate 72 71 77 Respiratory Rate 16 Blood Pressure 132/70 Pulse Oximetry 93 Oxygen Delivery 09/17/25 07:56 09/17/25 08:00 09/17/25 08:50 Temperature Pulse Rate 70 82 Respiratory Rate Blood Pressure Pulse Oximetry Oxygen Delivery Room Air 09/17/25 09:51 09/17/25 10:00 09/17/25 11:28 Temperature 97.7 F Pulse Rate 77 67 Respiratory Rate 22 H Blood Pressure 109/66 Pulse Oximetry 97 Oxygen Delivery Room Air Intake/Output Intake/Output: Intake & Output 09/14/25 09/15/25 09/16/25 09/17/25 23:59 23:59 23:59 23:59 Intake Total 3220 1547.5 Output Total 500 101 Balance 2720 1446.5 Meds/Results Medications: Active Medications Generic Name Dose Route Start Last Admin Trade Name Freq PRN Reason Stop Dose Admin Acetaminophen 500 mg 09/15/25 23:55 Acetaminophen 500 Mg Tablet PO Q6H PRN Mild Pain (1-3) or Fever Aspirin 81 mg 09/16/25 09:00 09/17/25 08:50 Aspirin 81 Mg Enteric Tablet PO 81 mg DAILY MO Administration Atorvastatin Calcium 80 mg 09/15/25 23:55 09/16/25 01:08 Atorvastatin 40 Mg Tablet PO 80 mg On Hold: 09/16/25 09:30 HS MO Administration Clopidogrel Bisulfate 75 mg 09/16/25 09:00 09/17/25 08:51 Clopidogrel Bisulfate 75 Mg Tablet PO 75 mg DAILY MO Administration Dextrose 12.5 gm 09/15/25 23:51 Dextrose 50% 25 Gm/50 Ml Syringe IV PUSH PRN PRN Hypoglycemia Protocol Glucose 15 gm 09/15/25 23:51 Glucose Oral Gel 15 Gm Of Glucse In 37.5 Gm Tube PO PRN PRN Hypoglycemia Protocol Heparin Sodium (Porcine) 5,000 units 09/16/25 22:00 09/17/25 06:11 Heparin Sodium 5,000 Units/Ml Vial SUB-Q 5,000 units Q8HR MO Administration Dextrose 1,000 mls @ 100 mls/hr 09/15/25 23:51 Dextrose 5% 1,000 Ml IVPB PRN PRN Hypoglycemia Protocol Piperacillin Sod/Tazobactam 50 mls @ 100 mls/hr 09/16/25 00:00 09/17/25 09:21 Sod 2.25 gm/ Sodium Chloride IVPB Infused Q8H MO Infusion Sodium Bicarbonate 75 meq/ 1,075 mls @ 30 mls/hr 09/16/25 18:00 09/17/25 09:21 Sodium Chloride IV CONT 30 mls/hr .Q24H MO Infusion Insulin Aspart 2 - 5 units 09/16/25 08:00 09/17/25 11:20 Insulin Aspart (*Bkc) 100 Units/Ml SUB-Q Not Given TIDWM [facility] Protocol Insulin Aspart 1 - 2 units 09/16/25 00:05 09/16/25 21:10 Insulin Aspart (*Bkc) 100 Units/Ml SUB-Q 1 units HS [facility] Administration Protocol Insulin Aspart 5 units 09/16/25 17:00 09/17/25 08:45 Insulin Aspart (*Bkc) 100 Units/Ml 0.05 units/kg (5 units) 5 units SUB-Q Administration TIDWM [facility] Insulin Glargine 31 units 09/16/25 21:00 09/16/25 21:10 Insulin Glargine (*Bkc) 100 Units/Ml 0.3 units/kg (31 units) 31 units SUB-Q Administration [facility] Loperamide HCl 2 mg 09/16/25 14:06 09/17/25 09:05 Loperamide Hcl 2 Mg Capsule PO 2 mg PRN PRN Administration Diarrhea Metoprolol Tartrate 50 mg 09/15/25 23:55 09/17/25 08:50 Metoprolol Tartrate 50 Mg Tab PO 50 mg Q12HR MO Administration Pantoprazole Sodium 40 mg 09/15/25 23:55 09/16/25 21:08 Pantoprazole 40 Mg Tablet PO 40 mg HS [facility] Administration Perflutren Lipid Microsphere 0 ml 09/16/25 09:31 Perflutren Lipid Microspheres 1.5 Ml Vial Diluted To 10 Ml Total Volume IV PUSH 09/19/25 09:31 ONCE PRN adequate visualization Protocol Potassium Chloride 40 meq 09/17/25 09:00 09/17/25 08:50 Potassium Chloride 20 Meq Packet (For Liquid) PO 09/17/25 17:01 40 meq TID MO Administration Radiology Results: ITS Impressions Retroperitoneum Ultrasound 09/16/25 18:04 IMPRESSION: Nonobstructive right renal stone measures up to 1.4 cm. Bilateral renal cysts. Abdomen/Pelvis CT 09/16/25 20:16 IMPRESSION: No acute abnormality is noted in the abdomen and pelvis. All CT scans at this facility are performed using low dose modulation techniques as appropriate to perform exam including the following: automated exposure control; use of iterative reconstruction technique; adjustment of the mA and/or kV according to patient size (this includes techniques or standardized protocols for targeted exams where dose is matched to indication/reason for exam). Chest X-Ray 09/17/25 09:25 IMPRESSION: 1. No acute cardiopulmonary disease. Labs Labs: Laboratory Results - last 24 hr 09/16/25 09/16/25 09/16/25 14:46 16:41 20:02 WBC RBC Hgb Hct MCV MCH MCHC RDW Plt Count MPV Immature Gran % (Auto) Neut % (Auto) Lymph % (Auto) [place] % (Auto) Eos % (Auto) Baso % (Auto) Lymph # (Auto) [place] # (Auto) Eos # (Auto) Baso # (Auto) Abs Immat Gran (auto) Absolute Neuts (auto) Absolute Nucleated RBC Nucleated RBC % Sodium 135 L Potassium 3.0 L Chloride 102 Carbon Dioxide 19 L Anion Gap 14 H BUN 94 H Creatinine 6.20 H Estim Creat Clear Calc 9 Estimated GFR 7 L Glucose 240 H POC Capillary Glucose 284 H 230 H Calcium 8.2 L Phosphorus 5.4 H Magnesium Total Bilirubin AST ALT Alkaline Phosphatase Total Creatine Kinase Total Protein Albumin 3.4 L Hep Bs Antigen Hep Bs Antibody Hep B Core Total Ab 09/17/25 09/17/25 09/17/25 05:15 07:50 11:16 WBC 8.5 RBC 4.36 Hgb 12.1 Hct 36.1 L MCV 82.8 MCH 27.8 MCHC 33.5 RDW 15.0 H Plt Count 161 MPV 11.9 H Immature Gran % (Auto) 1.2 H Neut % (Auto) 73.0 Lymph % (Auto) 14.8 L [place] % (Auto) 7.6 Eos % (Auto) 2.8 Baso % (Auto) 0.6 Lymph # (Auto) 1.26 [place] # (Auto) 0.7 H Eos # (Auto) 0.2 Baso # (Auto) 0.1 Abs Immat Gran (auto) 0.10 H Absolute Neuts (auto) 6.2 Absolute Nucleated RBC 0.000 Nucleated RBC % 0.0 Sodium 135 L Potassium 2.9 L Chloride 102 Carbon Dioxide 23 Anion Gap 10 BUN 103 H* Creatinine 7.02 H Estim Creat Clear Calc 8 Estimated GFR 6 L Glucose 133 H POC Capillary Glucose 135 H 185 H Calcium 7.9 L Phosphorus Magnesium 1.5 L Total Bilirubin 0.6 AST 154 H ALT 67 H Alkaline Phosphatase 81 Total Creatine Kinase 4453 H Total Protein 6.1 L Albumin 3.0 L Hep Bs Antigen Negative Hep Bs Antibody Negative Hep B Core Total Ab Cancelled Quality VTE Prophylaxis VTE prophylaxis: pharmacologic ordered
[2025-09-17 12:38] LABS: Add Urine Microscopic? YES; Appearance Urine Cloudy (Clear); Glucose Urine UA 1+ mg/dL (Negative); Leukocyte Esterase Ur 2+ LEU/UL (Negative); Need Manual Microscopic Reviewed; Nitrate Urine Negative (Negative); Non Pathogenic Casts 0-2; Specific Grav Ur 1.015 (1.001-1.035)
[2025-09-17 12:54] LABS: Urea Random Urine 319 MG/DL
[2025-09-17 13:47] LABS: Urine Eos QC 2nd Tech Confirmed
[2025-09-17 14:35] LABS: Total Protein Urine Random 250 mg/dL; Ur Ttl Prot Creatinine Ratio 2.31 mg/mg (0-0.20)
[2025-09-17 18:09] LABS: Albumin Level 3.2 g/dL (3.5-5.1); Anion Gap 11 mmol/L (4-12); Blood Urea Nitrogen 105 mg/dL (7-17); Calcium 8.1 mg/dL (8.4-10.2); Carbon Dioxide 23 mmol/L (22-30); Chloride 101 mmol/L (98-107); Estimated CRCL calculation 7 ml/min; Estimated Glomerular Filt Rate 5; Glucose 183 mg/dL (65-110); Potassium 4.0 mmol/L (3.4-5.0); Sodium 135 mmol/L (137-145)
[2025-09-17] MEDS: INSULIN GLARGINE (*BKC) 100 UNITS/ML 31 UNITS SUB-Q (21:15)
[2025-09-17] MEDS: PANTOPRAZOLE 40 MG TABLET PO (21:17)
[2025-09-17] MEDS: SODIUM CHLORIDE 0.9% IV 1,000 ML 75 ML IV CONT (21:18)
[2025-09-18] VITALS (15 sets, daily range): BP systolic 96–148; BP diastolic 53–79; PULSE 69–87; RESP 16–22; TEMP 36.4–36.7; O2SAT 91–100
[2025-09-18 04:41] LABS: Hematocrit 35.0 % (37.0-47.0); Hemoglobin 11.3 g/dL (12.0-15.0); Immature Granulocyte Percent A 2.3 % (0-0.5); Lymphocytes Absolute Auto 1.34 K/mm3 (0.9-3.2); Mean Corpuscular HGB Conc 32.3 g/dl (32-36); Mean Corpuscular Hemoglobin 27.9 pg (26-34); Mean Corpuscular Volume 86.4 fl (80-100); Nucleated Red Blood Cells Absolute Auto 0.000 K/mm3 (0.0-0.012); Nucleated Red Blood Cells Perc 0.0 % (0.0-0.2); Platelet Count Result 166 k/mm3 (150-375); Red Blood Count 4.05 M/mm3 (4.2-5.4); White Blood Count 8.6 K/mm3 (4.5-10.0)
[2025-09-18 05:08] LABS: Hep B Core Ab, Total Negative (Negative)
[2025-09-18 05:52] LABS: Alanine Aminotransferase 61 U/L (6-35); Albumin Level 3.1 g/dL (3.5-5.1); Alkaline Phosphatase 77 U/L (38-126); Anion Gap 12 mmol/L (4-12); Aspartate Amino Transferase 101 U/L (14-36); Bilirubin,Total 0.6 mg/dL (0.2-1.3); Blood Urea Nitrogen 109 mg/dL (7-17); Calcium 8.0 mg/dL (8.4-10.2); Carbon Dioxide 17 mmol/L (22-30); Chloride 106 mmol/L (98-107); Creatine Kinase 1574 U/L (30-135); Estimated CRCL calculation 6 ml/min; Estimated Glomerular Filt Rate 5; Glucose 138 mg/dL (65-110); Magnesium 2.2 mg/dL (1.6-2.3); Potassium 3.8 mmol/L (3.4-5.0); Sodium 135 mmol/L (137-145); Total Protein 6.2 g/dL (6.3-8.2)
[2025-09-18] MEDS: INSULIN ASPART (*BKC) 100 UNITS/ML SUB-Q ×4 (08:05→17:01)
[2025-09-18] MEDS: PIPERACILLIN/TAZOBACTAM SOD 2.25 GM in SODIUM CHLORIDE 0.9% IV 50 ML 100 ML IVPB ×3 (08:05→17:00)
[2025-09-18] MEDS: CLOPIDOGREL BISULFATE 75 MG TABLET PO (08:06)
[2025-09-18] MEDS: SODIUM BICARBONATE 8.4% 75 MEQ in SODIUM CHLORIDE 0.45% 1,000 ML 50 MEQ IV CONT (08:06)
[2025-09-18] MEDS: LOPERAMIDE HCL 2 MG CAPSULE PO (08:06)
[2025-09-18] MEDS: ASPIRIN 81 MG ENTERIC TABLET PO (08:07)
[2025-09-18] MEDS: METOPROLOL TARTRATE 50 MG TAB PO ×2 (08:07→21:34)
--- NOTE | 2025-09-18 09:56 | PC.NURSE ---
On 09/18/25, the student, [Erum Santana ], provided care and completed [facility] documentation on this patient. I have reviewed the student's documentation and agree with the findings.
--- NOTE | 2025-09-18 10:36 | PM.IMPN2 ---
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 Tolerated diet. Denied pain. Denied GI or difficulties. Only complaint is generalized weakness and severe fatigue. Review of Systems Review of Systems: All systems reviewed & are unremarkable except as noted in HPI and below Exam Narrative: HEENT: PERRL, sclerae nonicteric, pharyngeal mucosa pink and intact NECK: No JVD CHEST: Clear to auscultation. Normal effort HEART: NL S1/S2, regular, no murmur ABDOMEN: BS+, soft, nontender, no mass, no bruits EXTREMITIES: No cyanosis, edema, or clubbing NEUROLOGIC: CN intact and symmetric to inspection MUSCULOSKELETAL: Tone and strength symmetric PSYCH: Alert. Oriented to person, place, and time Objective Data Vital Signs Vital Signs: Vital Signs - 24 hr 09/17/25 11:28 09/17/25 12:00 09/17/25 14:00 Temperature 97.7 F Pulse Rate 67 70 77 Respiratory Rate 22 H Blood Pressure 109/66 Pulse Oximetry 97 Oxygen Delivery 09/17/25 15:40 09/17/25 16:00 09/17/25 17:40 Temperature 97.8 F Pulse Rate 75 75 83 Respiratory Rate 24 H Blood Pressure 144/66 H Pulse Oximetry 98 Oxygen Delivery 09/17/25 20:00 09/17/25 20:00 09/17/25 20:00 Temperature 98.1 F Pulse Rate 81 82 Respiratory Rate 20 Blood Pressure 131/57 L Pulse Oximetry 97 Oxygen Delivery Room Air 09/17/25 21:17 09/17/25 22:00 09/18/25 00:00 Temperature Pulse Rate 78 80 Respiratory Rate Blood Pressure Pulse Oximetry Oxygen Delivery Room Air 09/18/25 00:00 09/18/25 00:00 09/18/25 02:00 Temperature 97.8 F Pulse Rate 76 71 69 Respiratory Rate 20 Blood Pressure 96/53 L Pulse Oximetry 95 Oxygen Delivery 09/18/25 03:33 09/18/25 04:00 09/18/25 04:00 Temperature 97.9 F Pulse Rate 71 70 Respiratory Rate 16 Blood Pressure 110/59 L Pulse Oximetry 94 Oxygen Delivery Room Air 09/18/25 06:00 09/18/25 08:00 09/18/25 08:07 Temperature 97.5 F L Pulse Rate 69 74 80 Respiratory Rate 22 H Blood Pressure 147/70 H Pulse Oximetry 97 Oxygen Delivery Intake/Output Intake/Output: Intake & Output 09/15/25 09/16/25 09/17/25 09/18/25 23:59 23:59 23:59 23:59 Intake Total 3220 2137.5 790 Output Total 500 201 200 Balance 2720 1936.5 590 Meds/Results Medications: Active Medications Generic Name Dose Route Start Last Admin Trade Name Giuliano PRN Reason Stop Dose Admin Acetaminophen 500 mg 09/15/25 23:55 Acetaminophen 500 Mg Tablet PO Q6H PRN Mild Pain (1-3) or Fever Aspirin 81 mg 09/16/25 09:00 09/18/25 08:07 Aspirin 81 Mg Enteric Tablet PO 81 mg DAILY MO Administration Atorvastatin Calcium 80 mg 09/15/25 23:55 09/16/25 01:08 Atorvastatin 40 Mg Tablet PO 80 mg On Hold: 09/16/25 09:30 HS MO Administration Clopidogrel Bisulfate 75 mg 09/16/25 09:00 09/18/25 08:06 Clopidogrel Bisulfate 75 Mg Tablet PO 75 mg DAILY MO Administration Dextrose 12.5 gm 09/15/25 23:51 Dextrose 50% 25 Gm/50 Ml Syringe IV PUSH PRN PRN Hypoglycemia Protocol Glucose 15 gm 09/15/25 23:51 Glucose Oral Gel 15 Gm Of Glucse In 37.5 Gm Tube PO PRN PRN Hypoglycemia Protocol Heparin Sodium (Porcine) 5,000 units 09/16/25 22:00 09/18/25 06:09 Heparin Sodium 5,000 Units/Ml Vial SUB-Q 5,000 units Q8HR MO Administration Dextrose 1,000 mls @ 100 mls/hr 09/15/25 23:51 Dextrose 5% 1,000 Ml IVPB PRN PRN Hypoglycemia Protocol Piperacillin Sod/Tazobactam 50 mls @ 100 mls/hr 09/16/25 00:00 09/18/25 08:05 Sod 2.25 gm/ Sodium Chloride IVPB 100 mls/hr Q8H MO Administration Sodium Bicarbonate 75 meq/ 1,075 mls @ 50 mls/hr 09/18/25 07:30 09/18/25 08:06 Sodium Chloride IV CONT 50 mls/hr .[id number] MO Administration Insulin Aspart 2 - 5 units 09/16/25 08:00 09/18/25 08:02 Insulin Aspart (*Bkc) 100 Units/Ml SUB-Q Not Given TIDWM [facility] Protocol Insulin Aspart 1 - 2 units 09/16/25 00:05 09/17/25 21:17 Insulin Aspart (*Bkc) 100 Units/Ml SUB-Q 1 units HS MO Administration Protocol Insulin Aspart 2 units 09/17/25 17:00 09/18/25 08:05 Insulin Aspart (*Bkc) 100 Units/Ml SUB-Q 2 units TIDWM MO Administration Insulin Glargine 31 units 09/16/25 21:00 09/17/25 21:15 Insulin Glargine (*Bkc) 100 Units/Ml 0.3 units/kg (31 units) 31 units SUB-Q Administration [facility] Loperamide HCl 2 mg 09/16/25 14:06 09/18/25 08:06 Loperamide Hcl 2 Mg Capsule PO 2 mg PRN PRN Administration Diarrhea Metoprolol Tartrate 50 mg 09/15/25 23:55 09/18/25 08:07 Metoprolol Tartrate 50 Mg Tab PO 50 mg Q12HR MO Administration Pantoprazole Sodium 40 mg 09/15/25 23:55 09/17/25 21:17 Pantoprazole 40 Mg Tablet PO 40 mg HS MO Administration Perflutren Lipid Microsphere 0 ml 09/16/25 09:31 Perflutren Lipid Microspheres 1.5 Ml Vial Diluted To 10 Ml Total Volume IV PUSH 09/19/25 09:31 ONCE PRN adequate visualization Protocol Radiology Results: ITS Impressions Retroperitoneum Ultrasound 09/16/25 18:04 IMPRESSION: Nonobstructive right renal stone measures up to 1.4 cm. Bilateral renal cysts. Abdomen/Pelvis CT 09/16/25 20:16 IMPRESSION: No acute abnormality is noted in the abdomen and pelvis. All CT scans at this facility are performed using low dose modulation techniques as appropriate to perform exam including the following: automated exposure control; use of iterative reconstruction technique; adjustment of the mA and/or kV according to patient size (this includes techniques or standardized protocols for targeted exams where dose is matched to indication/reason for exam). Chest X-Ray 09/18/25 09:53 IMPRESSION: 1. No acute cardiopulmonary findings given portable technique. Labs Labs: Laboratory Results - last 24 hr 09/17/25 09/17/25 09/17/25 05:15 11:16 12:18 WBC RBC Hgb Hct MCV MCH MCHC RDW Plt Count MPV Immature Gran % (Auto) Neut % (Auto) Lymph % (Auto) [place] % (Auto) Eos % (Auto) Baso % (Auto) Lymph # (Auto) [place] # (Auto) Eos # (Auto) Baso # (Auto) Abs Immat Gran (auto) Absolute Neuts (auto) Absolute Nucleated RBC Nucleated RBC % Sodium Potassium Chloride Carbon Dioxide Anion Gap BUN Creatinine Estim Creat Clear Calc Estimated GFR Glucose POC Capillary Glucose 185 H Calcium Phosphorus Magnesium Total Bilirubin AST ALT Alkaline Phosphatase Total Creatine Kinase Total Protein Albumin Urine Color Yellow Urine Appearance Cloudy H Urine pH 5.0 Ur Specific [place] 1.015 Urine Protein 3+ H Urine Glucose (UA) 1+ H Urine Ketones Negative Ur Blood (Man) 3+ H Urine Nitrate Negative Urine Bilirubin Negative Urine Urobilinogen 0.2 Ur Leukocyte Esterase 2+ H Add Ur Microanalysis Reviewed Urine RBC 6-10 H Urine WBC 21-50 H Ur Squamous Epith Cells None seen Urine Bacteria None seen Urine Casts 0-2 Urine Eosinophils None seen U Random Total Protein 250 Ur Random Sodium 48 Ur Random Urea 319 Urine Creatinine 108.0 Protein/Creat Ratio 2 2.31 H Hep Bs Antigen Negative Hep Bs Antibody Negative Hep B Core Total Ab Negative 09/17/25 09/17/25 09/17/25 15:18 17:32 20:12 WBC RBC Hgb Hct MCV MCH MCHC RDW Plt Count MPV Immature Gran % (Auto) Neut % (Auto) Lymph % (Auto) [place] % (Auto) Eos % (Auto) Baso % (Auto) Lymph # (Auto) [place] # (Auto) Eos # (Auto) Baso # (Auto) Abs Immat Gran (auto) Absolute Neuts (auto) Absolute Nucleated RBC Nucleated RBC % Sodium 135 L Potassium 4.0 Chloride 101 Carbon Dioxide 23 Anion Gap 11 BUN 105 H* Creatinine 7.74 H Estim Creat Clear Calc 7 Estimated GFR 5 L Glucose 183 H POC Capillary Glucose 179 H 210 H Calcium 8.1 L Phosphorus 3.9 Magnesium Total Bilirubin AST ALT Alkaline Phosphatase Total Creatine Kinase Total Protein Albumin 3.2 L Urine Color Urine Appearance Urine pH Ur Specific [place] Urine Protein Urine Glucose (UA) Urine Ketones Ur Blood (Man) Urine Nitrate Urine Bilirubin Urine Urobilinogen Ur Leukocyte Esterase Add Ur Microanalysis Urine RBC Urine WBC Ur Squamous Epith Cells Urine Bacteria Urine Casts Urine Eosinophils U Random Total Protein Ur Random Sodium Ur Random Urea Urine Creatinine Protein/Creat Ratio 2 Hep Bs Antigen Hep Bs Antibody Hep B Core Total Ab 09/18/25 09/18/25 04:29 07:15 WBC 8.6 RBC 4.05 L Hgb 11.3 L Hct 35.0 L MCV 86.4 MCH 27.9 MCHC 32.3 RDW 15.3 H Plt Count 166 MPV 11.7 H Immature Gran % (Auto) 2.3 H Neut % (Auto) 70.2 Lymph % (Auto) 15.6 L [place] % (Auto) 6.7 Eos % (Auto) 4.4 Baso % (Auto) 0.8 Lymph # (Auto) 1.34 [place] # (Auto) 0.6 Eos # (Auto) 0.4 H Baso # (Auto) 0.1 Abs Immat Gran (auto) 0.20 H Absolute Neuts (auto) 6.0 Absolute Nucleated RBC 0.000 Nucleated RBC % 0.0 Sodium 135 L Potassium 3.8 Chloride 106 Carbon Dioxide 17 L Anion Gap 12 BUN 109 H* Creatinine 8.39 H Estim Creat Clear Calc 6 Estimated GFR 5 L Glucose 138 H POC Capillary Glucose 130 H Calcium 8.0 L Phosphorus Magnesium 2.2 Total Bilirubin 0.6 AST 101 H ALT 61 H Alkaline Phosphatase 77 Total Creatine Kinase 1574 H Total Protein 6.2 L Albumin 3.1 L Urine Color Urine Appearance Urine pH Ur Specific [place] Urine Protein Urine Glucose (UA) Urine Ketones Ur Blood (Man) Urine Nitrate Urine Bilirubin Urine Urobilinogen Ur Leukocyte Esterase Add Ur Microanalysis Urine RBC Urine WBC Ur Squamous Epith Cells Urine Bacteria Urine Casts Urine Eosinophils U Random Total Protein Ur Random Sodium Ur Random Urea Urine Creatinine Protein/Creat Ratio 2 Hep Bs Antigen Hep Bs Antibody Hep B Core Total Ab
--- NOTE | 2025-09-18 10:42 | P.PNNP_ITS ---
Progress Note: A&P Assessment and Plan (1) Acute kidney injury: Code(s): N17.9 - Acute kidney failure, unspecified Status: Acute Assessment and Plan: * ongoing deterioration noted * as noted by labs on presentation/admission (creatinine 6.9mg/dL) * multifactorial etiology: * #3 * prerenal factors (diarrhea) * diuretic use prior to admission * infection (UTI?) * other(? * evaluation to date noted: * renal ultrasound w/o obstruction * urine electrolytes prerenal (by FeUrea) * urine eosinophils negative * UA suggests infection (culture pending) * CPK trending down * proteinuria noted * on bicarb gtt for urinary alkalinization along with metabolic acidosis * follow volume status closely * consider force diuresis if needed * remains at risk for [employer]/dialysis * however, not needed at this time (no critical electrolytes, worsening acidosis, volume overload or signs of uremia) * follow trend of repeat labs and UOP (2) Stage 4 chronic kidney disease: Code(s): N18.4 - Chronic kidney disease, stage 4 (severe) Status: Chronic Assessment and Plan: * baseline creatine has been running ~ 2.0 - 2.7mg/dl in the last couple of years * though to be secondary to DM, HTN, vascular disease, and age-related changes based on outpatient evaluation: * fluctuations in kidney function seem to be related to issues and problems with recurrent kidney stones/nephrolithiasis as well as UTIs (3) Rhabdomyolysis: Code(s): M62.82 - Rhabdomyolysis Status: Acute Assessment and Plan: * as noted by elevated CPK levels * presumably precipitated by #4 * follow trend of CPK (4) Status post fall: Code(s): Z91.81 - History of falling Status: Acute Assessment and Plan: * as noted by admission history * mechanical in nature * PT/OT as tolerated (5) Diarrhea: Code(s): R19.7 - Diarrhea, unspecified Status: Acute Assessment and Plan: * improvement if not resolving * CT of A/P negative * imodium PRN * stool studies pending * on antibiotics (6) Urinary tract infection: Qualifiers: Hematuria presence: without hematuria Urinary tract infection type: s ite unspecified Qualified Code(s): N39.0 - Urinary tract infection, site not specified Code(s): N39.0 - Urinary tract infection, site not specified Status: Acute Assessment and Plan: * admission UA suggestive * follow culture results * already on antibiotics (7) Essential hypertension: Code(s): I10 - Essential (primary) hypertension Status: Acute Assessment and Plan: * reasonable control * follow trend of hemodynamics (8) Type 2 diabetes mellitus with diabetic chronic kidney disease: Qualifiers: Chronic kidney disease stage: stage 4 (severe) Diabetes mellitus correction insulin use: with correction use Qualified Code(s): E11.22 - Type 2 diabetes mellitus with diabetic chronic kidney disease; N18.4 - Chronic kidney disease, stage 4 (severe); Z79.4 - terminal superintendent (current) use of insulin Code(s): E11.22 - Type 2 diabetes mellitus with diabetic chronic kidney disease Status: Acute Assessment and Plan: * follow accucheks * glycemic control per hospitalist Will continue to follow. L Subjective Date/time seen: 09/18/25 10:42 Interval history: Follow-up for acute kidney injury/acute renal failure on chronic kidney disease. Renal function/creatinine/BUN continue to worsen despite therapy to date; still making some urine (but remains oliguric); major complaint remains weakness and fatigue; no apparent issues overnight or earlier this morning. Exam 2 Narrative: General: elderly but WD/WN female in NAD Heart: normal S1 and S2; no rub Lungs: clear to auscultation Abdomen: soft, nontender, nondistended, positive bowel sounds Extremities: no cyanosis or clubbing; no edema Skin: warm and intact Objective Data Vital Signs Vital Signs: Vital Signs Temp Pulse Resp BP Pulse Ox O2 Del Method 09/18/25 10:23 77 22 H 137/73 100 09/18/25 08:07 80 09/18/25 08:00 87 09/18/25 08:00 97.5 F L 74 22 H 147/70 H 97 09/18/25 06:00 69 09/18/25 04:00 97.9 F 70 16 110/59 L 94 09/18/25 04:00 71 09/18/25 03:33 Room Air 09/18/25 02:00 69 09/18/25 00:00 71 09/18/25 00:00 97.8 F 76 20 96/53 L 95 09/18/25 00:00 Room Air 09/17/25 22:00 80 09/17/25 21:17 78 09/17/25 20:00 82 09/17/25 20:00 Room Air 09/17/25 20:00 98.1 F 81 20 131/57 L 97 Intake/Output Intake/Output: Intake & Output 09/15/25 09/16/25 09/17/25 09/18/25 23:59 23:59 23:59 23:59 Intake Total 3220 2137.5 1080 Output Total 500 201 200 Balance 2720 1936.5 880 Meds/Results Medications: Active Medications Generic Name Dose Route Start Last Admin Trade Name Freq PRN Reason Stop Dose Admin Acetaminophen 500 mg 09/15/25 23:55 Acetaminophen 500 Mg Tablet PO Q6H PRN Mild Pain (1-3) or Fever Aspirin 81 mg 09/16/25 09:00 09/18/25 08:07 Aspirin 81 Mg Enteric Tablet PO 81 mg DAILY MO Administration Atorvastatin Calcium 80 mg 09/15/25 23:55 09/16/25 01:08 Atorvastatin 40 Mg Tablet PO 80 mg On Hold: 09/16/25 09:30 HS MO Administration Clopidogrel Bisulfate 75 mg 09/16/25 09:00 09/18/25 08:06 Clopidogrel Bisulfate 75 Mg Tablet PO 75 mg DAILY MO Administration Dextrose 12.5 gm 09/15/25 23:51 Dextrose 50% 25 Gm/50 Ml Syringe IV PUSH PRN PRN Hypoglycemia Protocol Glucose 15 gm 09/15/25 23:51 Glucose Oral Gel 15 Gm Of Glucse In 37.5 Gm Tube PO PRN PRN Hypoglycemia Protocol Heparin Sodium (Porcine) 5,000 units 09/16/25 22:00 09/18/25 13:05 Heparin Sodium 5,000 Units/Ml Vial SUB-Q 5,000 units Q8HR MO Administration Dextrose 1,000 mls @ 100 mls/hr 09/15/25 23:51 Dextrose 5% 1,000 Ml IVPB PRN PRN Hypoglycemia Protocol Piperacillin Sod/Tazobactam 50 mls @ 100 mls/hr 09/16/25 00:00 09/18/25 17:00 Sod 2.25 gm/ Sodium Chloride IVPB 100 mls/hr Q8H MO Administration Sodium Bicarbonate 75 meq/ 1,075 mls @ 50 mls/hr 09/18/25 07:30 09/18/25 08:06 Sodium Chloride IV CONT 50 mls/hr .[id number] MO Administration Insulin Aspart 2 - 5 units 09/16/25 08:00 09/18/25 17:00 Insulin Aspart (*Bkc) 100 Units/Ml SUB-Q 2 units TIDWM OM Administration Protocol Insulin Aspart 1 - 2 units 09/16/25 00:05 09/17/25 21:17 Insulin Aspart (*Bkc) 100 Units/Ml SUB-Q 1 units HS MO Administration Protocol Insulin Aspart 2 units 09/17/25 17:00 09/18/25 17:01 Insulin Aspart (*Bkc) 100 Units/Ml SUB-Q 2 units TIDWM MO Administration Insulin Glargine 31 units 09/16/25 21:00 09/17/25 21:15 Insulin Glargine (*Bkc) 100 Units/Ml 0.3 units/kg (31 units) 31 units SUB-Q Administration HS MO Loperamide HCl 2 mg 09/16/25 14:06 09/18/25 08:06 Loperamide Hcl 2 Mg Capsule PO 2 mg PRN PRN Administration Diarrhea Metoprolol Tartrate 50 mg 09/15/25 23:55 09/18/25 08:07 Metoprolol Tartrate 50 Mg Tab PO 50 mg Q12HR MO Administration Pantoprazole Sodium 40 mg 09/15/25 23:55 09/17/25 21:17 Pantoprazole 40 Mg Tablet PO 40 mg HS MO Administration Perflutren Lipid Microsphere 0 ml 09/16/25 09:31 Perflutren Lipid Microspheres 1.5 Ml Vial Diluted To 10 Ml Total Volume IV PUSH 09/19/25 09:31 ONCE PRN adequate visualization Protocol Radiology Results: ITS Impressions Retroperitoneum Ultrasound 09/16/25 18:04 IMPRESSION: Nonobstructive right renal stone measures up to 1.4 cm. Bilateral renal cysts. Abdomen/Pelvis CT 09/16/25 20:16 IMPRESSION: No acute abnormality is noted in the abdomen and pelvis. All CT scans at this facility are performed using low dose modulation techniques as appropriate to perform exam including the following: automated exposure control; use of iterative reconstruction technique; adjustment of the mA and/or kV according to patient size (this includes techniques or standardized protocols for targeted exams where dose is matched to indication/reason for exam). Chest X-Ray 09/18/25 09:53 IMPRESSION: 1. No acute cardiopulmonary findings given portable technique. Labs Labs: Laboratory Tests 09/18/25 04:29 09/18/25 04:29 Calcium 8.0 L Magnesium 2.2 Total Bilirubin 0.6 AST 101 H ALT 61 H Alkaline Phosphatase 77 Total Creatine Kinase 1574 H Total Protein 6.2 L Albumin 3.1 L Microbiology 09/16/25 09:15 Stool Salmonella/Shigella Screen - Final 09/16/25 09:15 Stool Shiga Toxin (EIA) - Final 09/16/25 09:15 Stool Shiga Toxin (EIA) - Final 09/16/25 09:14 Stool Giardia Antigen Screen - Final
[2025-09-18 19:20] LABS: Albumin Level 3.2 g/dL (3.5-5.1); Anion Gap 13 mmol/L (4-12); Blood Urea Nitrogen 114 mg/dL (7-17); Calcium 8.3 mg/dL (8.4-10.2); Carbon Dioxide 19 mmol/L (22-30); Chloride 102 mmol/L (98-107); Glucose 178 mg/dL (65-110); Potassium 3.9 mmol/L (3.4-5.0); Sodium 134 mmol/L (137-145)
[2025-09-18 19:27] LABS: Estimated CRCL calculation 6 ml/min; Estimated Glomerular Filt Rate 4
[2025-09-18] MEDS: PANTOPRAZOLE 40 MG TABLET PO (21:34)
[2025-09-18] MEDS: INSULIN GLARGINE (*BKC) 100 UNITS/ML 31 UNITS SUB-Q (21:34)
[2025-09-19] VITALS (14 sets, daily range): BP systolic 124–160; BP diastolic 56–72; PULSE 68–77; RESP 17–24; TEMP 36.5–37.1; O2SAT 97–99
[2025-09-19] MEDS: PIPERACILLIN/TAZOBACTAM SOD 2.25 GM in SODIUM CHLORIDE 0.9% IV 50 ML 100 ML IVPB ×3 (01:00→18:19)
[2025-09-19] MEDS: SODIUM BICARBONATE 8.4% 75 MEQ in SODIUM CHLORIDE 0.45% 1,000 ML 50 MEQ IV CONT (05:11)
[2025-09-19 05:16] LABS: Creatine Kinase 865 U/L (30-135)
[2025-09-19] MEDS: METOPROLOL TARTRATE 50 MG TAB PO ×2 (09:15→21:03)
[2025-09-19] MEDS: ASPIRIN 81 MG ENTERIC TABLET PO (09:16)
[2025-09-19] MEDS: CLOPIDOGREL BISULFATE 75 MG TABLET PO (09:16)
[2025-09-19] MEDS: INSULIN ASPART (*BKC) 100 UNITS/ML SUB-Q ×3 (09:18→18:20)
[2025-09-19 10:25] LABS: Alanine Aminotransferase 55 U/L (6-35); Albumin Level 2.9 g/dL (3.5-5.1); Alkaline Phosphatase 78 U/L (38-126); Anion Gap 14 mmol/L (4-12); Aspartate Amino Transferase 68 U/L (14-36); Bilirubin,Total 0.4 mg/dL (0.2-1.3); Blood Urea Nitrogen 116 mg/dL (7-17); Calcium 8.3 mg/dL (8.4-10.2); Carbon Dioxide 15 mmol/L (22-30); Chloride 104 mmol/L (98-107); Estimated CRCL calculation 6 ml/min; Estimated Glomerular Filt Rate 4; Glucose 115 mg/dL (65-110); Potassium 3.8 mmol/L (3.4-5.0); Sodium 133 mmol/L (137-145); Total Protein 6.0 g/dL (6.3-8.2)
--- NOTE | 2025-09-19 11:47 | PM.IMPN2 ---
Assessment and Plan Assessment and Plan (1) JOSE E (acute kidney injury): Code(s): N17.9 - Acute kidney failure, unspecified Status: Acute Assessment and Plan: Secondary to rhabdomyolysis, admission creatinine 6.9 09/18 creatinine 8.39, 09/19 9.55 (BUN 116) Continue IV sodium bicarbonate (2) Rhabdomyolysis: Code(s): M62.82 - Rhabdomyolysis Status: Acute Assessment and Plan: 09/18 CK 1574, 09/19 865 Continue IV sodium bicarbonate (3) Type 2 diabetes mellitus with hyperglycemia, with long-term current use of insulin: Code(s): E11.65 - Type 2 diabetes mellitus with hyperglycemia; Z79.4 - senior living (current) use of insulin Status: Acute Assessment and Plan: 09/18 FBS 130, 09/19 115 (4) Chronic renal failure, stage 4 (severe): Code(s): N18.4 - Chronic kidney disease, stage 4 (severe) Status: Chronic (5) Morbid obesity: Code(s): E66.01 - Morbid (severe) obesity due to excess calories Status: Acute (6) Diarrhea: Code(s): R19.7 - Diarrhea, unspecified Status: Acute Assessment and Plan: Self-limited, resolved Subjective Date/time seen: 09/19/25 11:47 Interval history: Admitted September 16 after fall with rhabdomyolysis and acute on chronic kidney injury. Tolerated diet. 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 Denied GI or difficulties. Only other complaint is generalized weakness and severe fatigue. Review of Systems Review of Systems: All systems reviewed & are unremarkable except as noted in HPI and below Exam Narrative: HEENT: PERRL, sclerae nonicteric, pharyngeal mucosa pink and intact NECK: No JVD CHEST: Clear to auscultation. Normal effort HEART: NL S1/S2, regular, no murmur ABDOMEN: BS+, soft, nontender, no mass, no bruits EXTREMITIES: No cyanosis, edema, or clubbing NEUROLOGIC: CN intact and symmetric to inspection MUSCULOSKELETAL: Tone and strength symmetric PSYCH: Alert. Oriented to person, place, and time Objective Data Vital Signs Vital Signs: Vital Signs - 24 hr 09/18/25 12:00 09/18/25 14:00 09/18/25 16:00 Temperature Pulse Rate 69 75 74 Respiratory Rate Blood Pressure Pulse Oximetry Oxygen Delivery 09/18/25 16:00 09/18/25 17:50 09/18/25 20:00 Temperature 98.0 F 98.1 F Pulse Rate 74 75 74 Respiratory Rate 20 18 Blood Pressure 148/66 H 131/79 Pulse Oximetry 98 91 Oxygen Delivery 09/18/25 20:00 09/18/25 20:00 09/18/25 21:34 Temperature Pulse Rate 74 77 Respiratory Rate Blood Pressure Pulse Oximetry Oxygen Delivery Room Air 09/18/25 22:00 09/19/25 00:00 09/19/25 00:00 Temperature 98.2 F Pulse Rate 73 73 Respiratory Rate 18 Blood Pressure 155/56 H Pulse Oximetry 98 Oxygen Delivery Room Air 09/19/25 00:00 09/19/25 02:00 09/19/25 03:56 Temperature Pulse Rate 73 77 Respiratory Rate Blood Pressure Pulse Oximetry Oxygen Delivery Room Air 09/19/25 04:00 09/19/25 04:00 09/19/25 06:00 Temperature 97.7 F Pulse Rate 68 68 68 Respiratory Rate 17 Blood Pressure 137/59 L Pulse Oximetry 97 Oxygen Delivery 09/19/25 08:00 09/19/25 09:15 09/19/25 11:46 Temperature 98.1 F 98.7 F Pulse Rate 76 73 71 Respiratory Rate 20 24 H Blood Pressure 124/71 138/60 Pulse Oximetry 97 97 Oxygen Delivery Intake/Output Intake/Output: Intake & Output 09/16/25 09/17/25 09/18/25 09/19/25 23:59 23:59 23:59 23:59 Intake Total 3220 2237.5 3757.5 2190.2 Output Total 500 201 300 200 Balance 2720 2036.5 3457.5 1990.2 Meds/Results Medications: Active Medications Generic Name Dose Route Start Last Admin Trade Name Freq PRN Reason Stop Dose Admin Acetaminophen 500 mg 09/15/25 23:55 Acetaminophen 500 Mg Tablet PO Q6H PRN Mild Pain (1-3) or Fever Aspirin 81 mg 09/16/25 09:00 09/19/25 09:16 Aspirin 81 Mg Enteric Tablet PO 81 mg DAILY MO Administration Atorvastatin Calcium 80 mg 09/15/25 23:55 09/16/25 01:08 Atorvastatin 40 Mg Tablet PO 80 mg On Hold: 09/16/25 09:30 HS MO Administration Clopidogrel Bisulfate 75 mg 09/16/25 09:00 09/19/25 09:16 Clopidogrel Bisulfate 75 Mg Tablet PO 75 mg On Hold: 09/19/25 10:51 DAILY MO Administration Dextrose 12.5 gm 09/15/25 23:51 Dextrose 50% 25 Gm/50 Ml Syringe IV PUSH PRN PRN Hypoglycemia Protocol Glucose 15 gm 09/15/25 23:51 Glucose Oral Gel 15 Gm Of Glucse In 37.5 Gm Tube PO PRN PRN Hypoglycemia Protocol Heparin Sodium (Porcine) 5,000 units 09/16/25 22:00 09/19/25 05:12 Heparin Sodium 5,000 Units/Ml Vial SUB-Q 5,000 units Q8HR MO Administration Dextrose 1,000 mls @ 100 mls/hr 09/15/25 23:51 Dextrose 5% 1,000 Ml IVPB PRN PRN Hypoglycemia Protocol Piperacillin Sod/Tazobactam 50 mls @ 100 mls/hr 09/16/25 00:00 09/19/25 09:47 Sod 2.25 gm/ Sodium Chloride IVPB Infused Q8H MO Infusion Sodium Bicarbonate 75 meq/ 1,075 mls @ 50 mls/hr 09/18/25 07:30 09/19/25 05:11 Sodium Chloride IV CONT 50 mls/hr .[id number] MO Administration Insulin Aspart 2 - 5 units 09/16/25 08:00 09/19/25 09:13 Insulin Aspart (*Bkc) 100 Units/Ml SUB-Q Not Given TIDWM [facility] Protocol Insulin Aspart 1 - 2 units 09/16/25 00:05 09/18/25 21:02 Insulin Aspart (*Bkc) 100 Units/Ml SUB-Q Not Given [facility] Protocol Insulin Aspart 2 units 09/17/25 17:00 09/19/25 09:18 Insulin Aspart (*Bkc) 100 Units/Ml SUB-Q 2 units TIDWM [facility] Administration Insulin Glargine 31 units 09/16/25 21:00 09/18/25 21:34 Insulin Glargine (*Bkc) 100 Units/Ml 0.3 units/kg (31 units) 31 units SUB-Q Administration HS [facility] Loperamide HCl 2 mg 09/16/25 14:06 09/18/25 08:06 Loperamide Hcl 2 Mg Capsule PO 2 mg PRN PRN Administration Diarrhea Metoprolol Tartrate 50 mg 09/15/25 23:55 09/19/25 09:15 Metoprolol Tartrate 50 Mg Tab PO 50 mg Q12HR MO Administration Pantoprazole Sodium 40 mg 09/15/25 23:55 09/18/25 21:34 Pantoprazole 40 Mg Tablet PO 40 mg HS MO Administration Sodium Bicarbonate 650 mg 09/19/25 10:55 Sodium Bicarbonate Tab 650 Mg Tablet PO BID MO Radiology Results: ITS Impressions Retroperitoneum Ultrasound 09/16/25 18:04 IMPRESSION: Nonobstructive right renal stone measures up to 1.4 cm. Bilateral renal cysts. Abdomen/Pelvis CT 09/16/25 20:16 IMPRESSION: No acute abnormality is noted in the abdomen and pelvis. All CT scans at this facility are performed using low dose modulation techniques as appropriate to perform exam including the following: automated exposure control; use of iterative reconstruction technique; adjustment of the mA and/or kV according to patient size (this includes techniques or standardized protocols for targeted exams where dose is matched to indication/reason for exam). Chest X-Ray 09/18/25 09:53 IMPRESSION: 1. No acute cardiopulmonary findings given portable technique. Labs Labs: Laboratory Results - last 24 hr 09/18/25 09/18/25 09/18/25 16:01 18:38 19:42 Sodium 134 L Potassium 3.9 Chloride 102 Carbon Dioxide 19 L Anion Gap 13 H BUN 114 H* Creatinine 9.17 H Estim Creat Clear Calc 6 Estimated GFR 4 L Glucose 178 H POC Capillary Glucose 200 H 172 H Calcium 8.3 L Phosphorus 4.9 H Total Bilirubin AST ALT Alkaline Phosphatase Total Creatine Kinase Total Protein Albumin 3.2 L 09/19/25 09/19/25 09/19/25 04:32 07:52 11:18 Sodium 133 L Potassium 3.8 Chloride 104 Carbon Dioxide 15 L Anion Gap 14 H BUN 116 H* Creatinine 9.55 H Estim Creat Clear Calc 6 Estimated GFR 4 L Glucose 115 H POC Capillary Glucose 130 H 142 H Calcium 8.3 L Phosphorus Total Bilirubin 0.4 AST 68 H ALT 55 H Alkaline Phosphatase 78 Total Creatine Kinase 865 H Total Protein 6.0 L Albumin 2.9 L
[2025-09-19] MEDS: SODIUM BICARBONATE TAB 650 MG TABLET PO ×2 (12:05→18:19)
--- NOTE | 2025-09-19 12:30 | P.PNNP_ITS ---
Progress Note: A&P Assessment and Plan (1) Acute kidney injury: Code(s): N17.9 - Acute kidney failure, unspecified Status: Acute Assessment and Plan: * ongoing deterioration noted * as noted by labs on presentation/admission (creatinine 6.9mg/dL) * multifactorial etiology: * #3 * prerenal factors (diarrhea) * diuretic use prior to admission * infection (UTI?) * other(? 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 PUNCHBOARD STUFFER/dialysis * however, not needed at this time (no critical electrolytes, worsening acidosis, volume overload or signs of uremia) * follow trend of repeat labs and UOP (2) Stage 4 chronic kidney disease: Code(s): N18.4 - Chronic kidney disease, stage 4 (severe) Status: Chronic Assessment and Plan: * baseline creatine has been running ~ 2.0 - 2.7mg/dl in the last couple of years * though to be secondary to DM, HTN, vascular disease, and age-related changes based on outpatient evaluation: * fluctuations in kidney function seem to be related to issues and problems with recurrent kidney stones/nephrolithiasis as well as UTIs (3) Rhabdomyolysis: Code(s): M62.82 - Rhabdomyolysis Status: Acute Assessment and Plan: * as noted by elevated CPK levels * presumably precipitated by #4 * follow trend of CPK (4) Status post fall: Code(s): Z91.81 - History of falling Status: Acute Assessment and Plan: * as noted by admission history * mechanical in nature * PT/OT as tolerated (5) Diarrhea: Code(s): R19.7 - Diarrhea, unspecified Status: Acute Assessment and Plan: * improvement if not resolving * CT of A/P negative * imodium PRN (6) Urinary tract infection: Qualifiers: Hematuria presence: without hematuria Urinary tract infection type: s ite unspecified Qualified Code(s): N39.0 - Urinary tract infection, site not specified Code(s): N39.0 - Urinary tract infection, site not specified Status: Acute Assessment and Plan: * admission UA suggestive * follow culture results - E.coli * on antibiotics (7) Essential hypertension: Code(s): I10 - Essential (primary) hypertension Status: Acute Assessment and Plan: * reasonable control * follow trend of hemodynamics (8) Type 2 diabetes mellitus with diabetic chronic kidney disease: Qualifiers: Chronic kidney disease stage: stage 4 (severe) 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 mellitus 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 oil terminal superintendent insulin use: with marine oil terminal superintendent use Qualified Code(s): E11.22 - Type 2 diabetes mellitus with diabetic chronic kidney disease; N18.4 - Chronic kidney disease, stage 4 (severe); Z79.4 - terminal computer operator (current) use of insulin Code(s): E11.22 - Type 2 diabetes mellitus with diabetic chronic kidney disease Status: Acute Assessment and Plan: * follow accucheks * glycemic control per hospitalist Long and extensive discussion (> 25 minutes) with patient regarding her worsening renal dysfunction -- she well aware of the possible need for renal replacement therapy/dialysis but is hoping that it will not come to that; no critical electrolytes, volume overload, or evidence of uremia but she does have a metabolic acidosis and she remains oliguric at this time; will continue supportive therapy and follow trend of repeat labs and UOP... Will continue to follow. L Subjective Date/time seen: 09/19/25 12:30 Interval history: Follow-up for acute kidney injury/acute renal failure on chronic kidney disease. No apparent distress noted at the time of my visit other than generalized weakness; CPK trending down but renal function/creatinine/BUN continue to worsen with diminished urine output; no other acute complaints voiced when seen; no events overnight or earlier this morning. Exam 2 Narrative: General: elderly but WD/WN female in NAD Heart: normal S1 and S2; no rub Lungs: clear to auscultation Abdomen: soft, nontender, nondistended, positive bowel sounds Extremities: no cyanosis or clubbing; no edema Skin: no rash Objective Data Vital Signs Vital Signs: Vital Signs Temp Pulse Resp BP Pulse Ox O2 Del Method 09/19/25 11:46 98.7 F 71 24 H 138/60 97 09/19/25 09:15 73 09/19/25 08:00 98.1 F 76 20 124/71 97 09/19/25 06:00 68 09/19/25 04:00 97.7 F 68 17 137/59 L 97 09/19/25 04:00 68 09/19/25 03:56 Room Air 09/19/25 02:00 77 09/19/25 00:00 73 09/19/25 00:00 Room Air 09/19/25 00:00 98.2 F 73 18 155/56 H 98 09/18/25 22:00 73 09/18/25 21:34 77 09/18/25 20:00 74 09/18/25 20:00 Room Air 09/18/25 20:00 98.1 F 74 18 131/79 91 09/18/25 17:50 75 09/18/25 16:00 98.0 F 74 20 148/66 H 98 09/18/25 16:00 74 Intake/Output Intake/Output: Intake & Output 09/16/25 09/17/25 09/18/25 09/19/25 23:59 23:59 23:59 23:59 Intake Total 5320 2237.5 3757.5 2430.2 Output Total 500 201 300 200 Balance 4820 2036.5 3457.5 2230.2 Meds/Results Medications: Active Medications Generic Name Dose Route Start Last Admin Trade Name Freq PRN Reason Stop Dose Admin Acetaminophen 500 mg 09/15/25 23:55 Acetaminophen 500 Mg Tablet PO Q6H PRN Mild Pain (1-3) or Fever Aspirin 81 mg 09/16/25 09:00 09/19/25 09:16 Aspirin 81 Mg Enteric Tablet PO 81 mg DAILY MO Administration Atorvastatin Calcium 80 mg 09/15/25 23:55 09/16/25 01:08 Atorvastatin 40 Mg Tablet PO 80 mg On Hold: 09/16/25 09:30 HS MO Administration Clopidogrel Bisulfate 75 mg 09/16/25 09:00 09/19/25 09:16 Clopidogrel Bisulfate 75 Mg Tablet PO 75 mg On Hold: 09/19/25 10:51 DAILY MO Administration Dextrose 12.5 gm 09/15/25 23:51 Dextrose 50% 25 Gm/50 Ml Syringe IV PUSH PRN PRN Hypoglycemia Protocol Glucose 15 gm 09/15/25 23:51 Glucose Oral Gel 15 Gm Of Glucse In 37.5 Gm Tube PO PRN PRN Hypoglycemia Protocol Heparin Sodium (Porcine) 5,000 units 09/16/25 22:00 09/19/25 05:12 Heparin Sodium 5,000 Units/Ml Vial SUB-Q 5,000 units Q8HR MO Administration Dextrose 1,000 mls @ 100 mls/hr 09/15/25 23:51 Dextrose 5% 1,000 Ml IVPB PRN PRN Hypoglycemia Protocol Piperacillin Sod/Tazobactam 50 mls @ 100 mls/hr 09/16/25 00:00 09/19/25 09:47 Sod 2.25 gm/ Sodium Chloride IVPB Infused Q8H MO Infusion Sodium Bicarbonate 75 meq/ 1,075 mls @ 50 mls/hr 09/18/25 07:30 09/19/25 05:11 Sodium Chloride IV CONT 50 mls/hr .[id number] MO Administration Insulin Aspart 2 - 5 units 09/16/25 08:00 09/19/25 12:04 Insulin Aspart (*Bkc) 100 Units/Ml SUB-Q Not Given TIDWM [facility] Protocol Insulin Aspart 1 - 2 units 09/16/25 00:05 09/18/25 21:02 Insulin Aspart (*Bkc) 100 Units/Ml SUB-Q Not Given [facility] Protocol Insulin Aspart 2 units 09/17/25 17:00 09/19/25 12:05 Insulin Aspart (*Bkc) 100 Units/Ml SUB-Q 2 units TIDWM MO Administration Insulin Glargine 31 units 09/16/25 21:00 09/18/25 21:34 Insulin Glargine (*Bkc) 100 Units/Ml 0.3 units/kg (31 units) 31 units SUB-Q Administration [facility] Loperamide HCl 2 mg 09/16/25 14:06 09/18/25 08:06 Loperamide Hcl 2 Mg Capsule PO 2 mg PRN PRN Administration Diarrhea Metoprolol Tartrate 50 mg 09/15/25 23:55 09/19/25 09:15 Metoprolol Tartrate 50 Mg Tab PO 50 mg Q12HR MO Administration Pantoprazole Sodium 40 mg 09/15/25 23:55 09/18/25 21:34 Pantoprazole 40 Mg Tablet PO 40 mg HS MO Administration Sodium Bicarbonate 650 mg 09/19/25 10:55 09/19/25 12:05 Sodium Bicarbonate Tab 650 Mg Tablet PO 650 mg BID MO Administration Radiology Results: ITS Impressions Retroperitoneum Ultrasound 09/16/25 18:04 IMPRESSION: Nonobstructive right renal stone measures up to 1.4 cm. Bilateral renal cysts. Abdomen/Pelvis CT 09/16/25 20:16 IMPRESSION: No acute abnormality is noted in the abdomen and pelvis. All CT scans at this facility are performed using low dose modulation techniques as appropriate to perform exam including the following: automated exposure control; use of iterative reconstruction technique; adjustment of the mA and/or kV according to patient size (this includes techniques or standardized protocols for targeted exams where dose is matched to indication/reason for exam). Chest X-Ray 09/18/25 09:53 IMPRESSION: 1. No acute cardiopulmonary findings given portable technique. Labs Labs: Laboratory Tests 09/18/25 04:29 09/19/25 04:32 Calcium 8.3 L Total Bilirubin 0.4 AST 68 H ALT 55 H Alkaline Phosphatase 78 Total Creatine Kinase 865 H Total Protein 6.0 L Albumin 2.9 L Microbiology 09/16/25 09:15 Stool Salmonella/Shigella Screen - Final 09/16/25 09:15 Stool Shiga Toxin (EIA) - Final 09/16/25 09:15 Stool Shiga Toxin (EIA) - Final
[2025-09-19] MEDS: PANTOPRAZOLE 40 MG TABLET PO (21:03)
[2025-09-19] MEDS: INSULIN GLARGINE (*BKC) 100 UNITS/ML 31 UNITS SUB-Q (21:03)
[2025-09-20] VITALS (14 sets, daily range): BP systolic 145–158; BP diastolic 63–81; PULSE 65–75; RESP 20–22; TEMP 36.3–36.7; O2SAT 95–98
[2025-09-20] MEDS: PIPERACILLIN/TAZOBACTAM SOD 2.25 GM in SODIUM CHLORIDE 0.9% IV 50 ML 100 ML IVPB ×2 (00:57→09:30)
[2025-09-20] MEDS: SODIUM BICARBONATE 8.4% 75 MEQ in SODIUM CHLORIDE 0.45% 1,000 ML 50 MEQ IV CONT ×2 (01:14→22:26)
[2025-09-20 04:38] LABS: Hematocrit 32.8 % (37.0-47.0); Hemoglobin 10.8 g/dL (12.0-15.0); Immature Granulocyte Percent A 7.5 % (0-0.5); Lymphocytes Absolute Auto 1.08 K/mm3 (0.9-3.2); Mean Corpuscular HGB Conc 32.9 g/dl (32-36); Mean Corpuscular Hemoglobin 28.0 pg (26-34); Mean Corpuscular Volume 85.0 fl (80-100); Nucleated Red Blood Cells Absolute Auto 0.000 K/mm3 (0.0-0.012); Nucleated Red Blood Cells Perc 0.0 % (0.0-0.2); Platelet Count Result 174 k/mm3 (150-375); Red Blood Count 3.86 M/mm3 (4.2-5.4); White Blood Count 8.8 K/mm3 (4.5-10.0)
[2025-09-20 05:25] LABS: Anisocytosis 1+; Burr Cells 1+; Schistocytes None Seen
[2025-09-20 05:27] LABS: Alanine Aminotransferase 55 U/L (6-35); Albumin Level 3.0 g/dL (3.5-5.1); Alkaline Phosphatase 84 U/L (38-126); Anion Gap 14 mmol/L (4-12); Aspartate Amino Transferase 52 U/L (14-36); Bilirubin,Total 0.6 mg/dL (0.2-1.3); Blood Urea Nitrogen 120 mg/dL (7-17); Calcium 8.5 mg/dL (8.4-10.2); Carbon Dioxide 17 mmol/L (22-30); Chloride 102 mmol/L (98-107); Estimated CRCL calculation 5 ml/min; Estimated Glomerular Filt Rate 3; Glucose 115 mg/dL (65-110); Potassium 3.9 mmol/L (3.4-5.0); Sodium 133 mmol/L (137-145); Total Protein 6.2 g/dL (6.3-8.2)
[2025-09-20 07:39] LABS: Creatine Kinase 420 U/L (30-135)
[2025-09-20] MEDS: SODIUM BICARBONATE TAB 650 MG TABLET PO ×2 (09:30→16:56)
[2025-09-20] MEDS: ASPIRIN 81 MG ENTERIC TABLET PO (09:30)
[2025-09-20] MEDS: METOPROLOL TARTRATE 50 MG TAB PO ×2 (09:30→21:20)
--- NOTE | 2025-09-20 10:14 | P.PNNP_ITS ---
Progress Note: A&P Assessment and Plan (1) Acute kidney injury: Code(s): N17.9 - Acute kidney failure, unspecified Status: Acute Assessment and Plan: * ongoing deterioration noted * as noted by labs on presentation/admission (creatinine 6.9mg/dL) * multifactorial etiology: * #3 * prerenal factors (diarrhea) * diuretic use prior to admission * infection (UTI?) * other(? 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 DIE ENGRAVING SUPERVISOR/dialysis * no urgent need but her BUN and creatinine continue to climb * follow trend of repeat labs and UOP (2) Stage 4 chronic kidney disease: Code(s): N18.4 - Chronic kidney disease, stage 4 (severe) Status: Chronic Assessment and Plan: * baseline creatine has been running ~ 2.0 - 2.7mg/dl in the last couple of years * though to be secondary to DM, HTN, vascular disease, and age-related changes based on outpatient evaluation: * fluctuations in kidney function seem to be related to issues and problems with recurrent kidney stones/nephrolithiasis as well as UTIs (3) Rhabdomyolysis: Code(s): M62.82 - Rhabdomyolysis Status: Acute Assessment and Plan: * as noted by elevated CPK levels * presumably precipitated by #4 * follow trend of CPK (4) Status post fall: Code(s): Z91.81 - History of falling Status: Acute Assessment and Plan: * as noted by admission history * mechanical in nature * PT/OT as tolerated (5) Diarrhea: Code(s): R19.7 - Diarrhea, unspecified Status: Acute Assessment and Plan: * improvement if not resolving * CT of A/P negative * stool culture with light growth of Campy. jejuni ssp. jejuni * need treatment? * imodium PRN (6) Urinary tract infection: Qualifiers: Hematuria presence: without hematuria Urinary tract infection type: s ite unspecified Qualified Code(s): N39.0 - Urinary tract infection, site not specified Code(s): N39.0 - Urinary tract infection, site not specified Status: Acute Assessment and Plan: * admission UA suggestive * follow culture results - E.coli * on antibiotics (7) Essential hypertension: Code(s): I10 - Essential (primary) hypertension Status: Acute Assessment and Plan: * reasonable control * follow trend of hemodynamics (8) Type 2 diabetes mellitus with diabetic chronic kidney disease: Qualifiers: Diabetes mellitus longitudinal float operator insulin use: with longitudinal float operator use Chronic kidney disease stage: stage 4 (severe) Qualified Code(s): E11.22 - Type 2 diabetes mellitus with diabetic chronic kidney disease; N18.4 - Chronic kidney disease, stage 4 (severe); Z79.4 - jail (current) use of insulin Code(s): E11.22 - Type 2 diabetes mellitus with diabetic chronic kidney disease Status: Acute Assessment and Plan: * follow accucheks * glycemic control per hospitalist Another long and extensive discussion (> 25 minutes) with patient regarding her worsening renal dysfunction -- she does not have any critical electrolytes, volume overload, or evidence of uremia but she remains oliguric and BUN & creatinine continues to rise; she is now accepting the possible need for DIE ENGRAVING SUPERVISOR/dialysis given the trend of her labs; she would like me to call her son to discuss the issues of DIE ENGRAVING SUPERVISOR/dialysis. Will continue to follow. L Subjective Date/time seen: 09/20/25 10:14 Interval history: Follow-up for acute kidney injury/acute renal failure on chronic kidney disease. Appears to be feeling okay at the time of my visit; CPK trending down but renal function/creatinine/BUN continue to worsen despite all conservative therapy to date; no apparent distress noted and major complaint remains weakness/fatigue. Exam 2 Narrative: General: elderly but WD/WN female in NAD Heart: normal S1 and S2; no rub Lungs: clear to auscultation Abdomen: soft, nontender, nondistended, positive bowel sounds Extremities: no cyanosis or clubbing; no edema Skin: no nodules Objective Data Vital Signs Vital Signs: Vital Signs Temp Pulse Resp BP Pulse Ox O2 Del Method 09/20/25 10:00 98.1 F 66 20 155/81 H 97 09/20/25 09:30 70 09/20/25 08:00 Room Air 09/20/25 08:00 69 09/20/25 07:59 97.9 F 73 22 H 151/63 H 95 09/20/25 06:00 65 09/20/25 04:00 69 09/20/25 04:00 97.3 F L 71 22 H 145/69 H 98 09/20/25 02:58 Room Air 09/20/25 02:00 69 09/20/25 00:00 69 09/20/25 00:00 Room Air 09/20/25 00:00 97.8 F 70 22 H 149/69 H 97 09/19/25 22:00 76 09/19/25 21:03 75 09/19/25 20:00 74 09/19/25 20:00 Room Air 09/19/25 20:00 98.5 F 76 22 H 160/72 H 99 Intake/Output Intake/Output: Intake & Output 09/17/25 09/18/25 09/19/25 09/20/25 23:59 23:59 23:59 23:59 Intake Total 2237.5 3757.5 3120.2 1882.5 Output Total 201 300 500 250 Balance 2036.5 3457.5 2620.2 1632.5 Meds/Results Medications: Active Medications Generic Name Dose Route Start Last Admin Trade Name Freq PRN Reason Stop Dose Admin Acetaminophen 500 mg 09/15/25 23:55 Acetaminophen 500 Mg Tablet PO Q6H PRN Mild Pain (1-3) or Fever Amoxicillin 500 mg 09/20/25 18:00 09/20/25 17:08 Amoxicillin 500 Mg Capsule PO 09/22/25 18:01 500 mg QPM MO Administration Aspirin 81 mg 09/16/25 09:00 09/20/25 09:30 Aspirin 81 Mg Enteric Tablet PO 81 mg DAILY MO Administration Atorvastatin Calcium 80 mg 09/15/25 23:55 09/16/25 01:08 Atorvastatin 40 Mg Tablet PO 80 mg On Hold: 09/16/25 09:30 HS MO Administration Clopidogrel Bisulfate 75 mg 09/16/25 09:00 09/19/25 09:16 Clopidogrel Bisulfate 75 Mg Tablet PO 75 mg On Hold: 09/19/25 10:51 DAILY MO Administration Dextrose 12.5 gm 09/15/25 23:51 Dextrose 50% 25 Gm/50 Ml Syringe IV PUSH PRN PRN Hypoglycemia Protocol Glucose 15 gm 09/15/25 23:51 Glucose Oral Gel 15 Gm Of Glucse In 37.5 Gm Tube PO PRN PRN Hypoglycemia Protocol Heparin Sodium (Porcine) 5,000 units 09/16/25 22:00 09/20/25 14:10 Heparin Sodium 5,000 Units/Ml Vial SUB-Q 5,000 units Q8HR MO Administration Dextrose 1,000 mls @ 100 mls/hr 09/15/25 23:51 Dextrose 5% 1,000 Ml IVPB PRN PRN Hypoglycemia Protocol Sodium Bicarbonate 75 meq/ 1,075 mls @ 50 mls/hr 09/18/25 07:30 09/20/25 01:14 Sodium Chloride IV CONT 50 mls/hr .[id number] MO Administration Insulin Aspart 2 - 5 units 09/16/25 08:00 09/20/25 16:56 Insulin Aspart (*Bkc) 100 Units/Ml SUB-Q Not Given TIDWM MO Protocol Insulin Aspart 1 - 2 units 09/16/25 00:05 09/19/25 20:54 Insulin Aspart (*Bkc) 100 Units/Ml SUB-Q Not Given HS [facility] Protocol Insulin Aspart 2 units 09/17/25 17:00 09/20/25 16:57 Insulin Aspart (*Bkc) 100 Units/Ml SUB-Q 2 units TIDWM MO Administration Insulin Glargine 31 units 09/16/25 21:00 09/19/25 21:03 Insulin Glargine (*Bkc) 100 Units/Ml 0.3 units/kg (31 units) 31 units SUB-Q Administration HS [facility] Loperamide HCl 2 mg 09/16/25 14:06 09/18/25 08:06 Loperamide Hcl 2 Mg Capsule PO 2 mg PRN PRN Administration Diarrhea Metoprolol Tartrate 50 mg 09/15/25 23:55 09/20/25 09:30 Metoprolol Tartrate 50 Mg Tab PO 50 mg Q12HR MO Administration Pantoprazole Sodium 40 mg 09/15/25 23:55 09/19/25 21:03 Pantoprazole 40 Mg Tablet PO 40 mg HS MO Administration Sodium Bicarbonate 650 mg 09/19/25 10:55 09/20/25 16:56 Sodium Bicarbonate Tab 650 Mg Tablet PO 650 mg BID MO Administration Radiology Results: ITS Impressions Retroperitoneum Ultrasound 09/16/25 18:04 IMPRESSION: Nonobstructive right renal stone measures up to 1.4 cm. Bilateral renal cysts. Abdomen/Pelvis CT 09/16/25 20:16 IMPRESSION: No acute abnormality is noted in the abdomen and pelvis. All CT scans at this facility are performed using low dose modulation techniques as appropriate to perform exam including the following: automated exposure control; use of iterative reconstruction technique; adjustment of the mA and/or kV according to patient size (this includes techniques or standardized protocols for targeted exams where dose is matched to indication/reason for exam). Chest X-Ray 09/18/25 09:53 IMPRESSION: 1. No acute cardiopulmonary findings given portable technique. Labs Labs: Laboratory Tests 09/20/25 04:09 09/20/25 04:09 Calcium 8.5 Phosphorus 7.4 H Total Bilirubin 0.6 AST 52 H ALT 55 H Alkaline Phosphatase 84 Total Creatine Kinase 420 H Total Protein 6.2 L Albumin 3.0 L Microbiology 09/16/25 09:15 Stool Salmonella/Shigella Screen - Final 09/16/25 09:15 Stool Campylobacter Culture - Final Campy. jejuni ssp. jejuni 09/16/25 09:15 Stool Shiga Toxin (EIA) - Final
[2025-09-20] MEDS: INSULIN ASPART (*BKC) 100 UNITS/ML SUB-Q ×2 (13:00→16:57)
--- NOTE | 2025-09-20 15:46 | PM.IMPN2 ---
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.4 - long term care pharmacist (current) use of insulin Status: Acute (2) Morbid obesity: Code(s): E66.01 - Morbid (severe) obesity due to excess calories Status: Acute (3) ONEL (acute kidney injury): Code(s): N17.9 - Acute kidney failure, unspecified Status: Acute (4) Chronic renal failure, stage 4 (severe): Code(s): N18.4 - Chronic kidney disease, stage 4 (severe) Status: Chronic (5) Diarrhea: Code(s): R19.7 - Diarrhea, unspecified Status: Acute (6) Rhabdomyolysis: Code(s): M62.82 - Rhabdomyolysis Status: Acute Plan 75-year-old female with past medical history of obesity, CKD stage 4, coronary artery disease, insulin-dependent diabetes presenting to [facility] on 09/15/2025 after a mechanical fall. Then transferred to [facility], patient of Dr. Hdez Nephrology. She has been having diarrhea for 5 days. C diff was negative. On to have Onel I on pre-existing CKD along with severe rhabdomyolysis. 1. Fall: Mechanical Unable to get up for extended period of time PT/OT when appropriate 2. Diarrhea: Improved C diff negative Stool culture unremarkable CT abdomen pelvis without contrast was unremarkable Brat diet Imodium p.r.n. 3. Onel I on pre-existing CKD stage IV: Rhabdomyolysis Nephrology following Worsening kidney function Improving CPK renal ultrasound shows nonobstructive kidney disease Will hold statin Continue with oral bicarb drip monitor urine output Continue with Lott ? need for dialysis, will defer to Nephrology 4. Diabetes mellitus: Blood glucose checked t.i.d. a.c. HS continue with Lantus 31 units at nighttime C/w SS+Meal time Adjust dose as needed 5. Code status: Full 6. DVT prophylaxis: Heparin subQ 7. Disposition: Pending improvement, can be transferred out of IMU Time Spent With Patient Time with patient: 25 - 35 minutes Subjective Date/time seen: 09/20/25 15:46 Interval history: No acute events over night Review of Systems Review of Systems: All systems reviewed & are unremarkable except as noted in HPI and below Exam Narrative: HEENT: PERRL, sclerae nonicteric, pharyngeal mucosa pink and intact NECK: No JVD CHEST: Clear to auscultation. Normal effort HEART: NL S1/S2, regular, no murmur ABDOMEN: BS+, soft, nontender, no mass, no bruits EXTREMITIES: No cyanosis, edema, or clubbing NEUROLOGIC: CN intact and symmetric to inspection MUSCULOSKELETAL: Tone and strength symmetric PSYCH: Alert. Oriented to person, place, and time Objective Data Vital Signs Vital Signs: Vital Signs - 24 hr 09/19/25 16:00 09/19/25 16:00 09/19/25 16:00 Temperature 98.1 F Pulse Rate 75 75 Respiratory Rate 23 H Blood Pressure 145/71 H Pulse Oximetry 99 Oxygen Delivery Room Air 09/19/25 18:00 09/19/25 20:00 09/19/25 20:00 Temperature 98.5 F Pulse Rate 75 76 Respiratory Rate 22 H Blood Pressure 160/72 H Pulse Oximetry 99 Oxygen Delivery Room Air 09/19/25 20:00 09/19/25 21:03 09/19/25 22:00 Temperature Pulse Rate 74 75 76 Respiratory Rate Blood Pressure Pulse Oximetry Oxygen Delivery 09/20/25 00:00 09/20/25 00:00 09/20/25 00:00 Temperature 97.8 F Pulse Rate 70 69 Respiratory Rate 22 H Blood Pressure 149/69 H Pulse Oximetry 97 Oxygen Delivery Room Air 09/20/25 02:00 09/20/25 02:58 09/20/25 04:00 Temperature 97.3 F L Pulse Rate 69 71 Respiratory Rate 22 H Blood Pressure 145/69 H Pulse Oximetry 98 Oxygen Delivery Room Air 09/20/25 04:00 09/20/25 06:00 09/20/25 07:59 Temperature 97.9 F Pulse Rate 69 65 73 Respiratory Rate 22 H Blood Pressure 151/63 H Pulse Oximetry 95 Oxygen Delivery 09/20/25 08:00 09/20/25 08:00 09/20/25 09:30 Temperature Pulse Rate 69 70 Respiratory Rate Blood Pressure Pulse Oximetry Oxygen Delivery Room Air 09/20/25 10:00 09/20/25 11:27 09/20/25 12:00 Temperature 98.1 F Pulse Rate 70 66 Respiratory Rate 20 Blood Pressure 155/81 H Pulse Oximetry 97 Oxygen Delivery Room Air 09/20/25 12:00 09/20/25 14:00 09/20/25 15:36 Temperature 97.9 F Pulse Rate 71 72 69 Respiratory Rate 20 Blood Pressure 147/74 H Pulse Oximetry 97 Oxygen Delivery Intake/Output Intake/Output: Intake & Output 09/17/25 09/18/25 09/19/25 09/20/25 23:59 23:59 23:59 23:59 Intake Total 2237.5 3757.5 3120.2 1582.5 Output Total 201 300 500 Balance 2036.5 3457.5 2620.2 1582.5 Meds/Results Medications: Active Medications Generic Name Dose Route Start Last Admin Trade Name Freq PRN Reason Stop Dose Admin Acetaminophen 500 mg 09/15/25 23:55 Acetaminophen 500 Mg Tablet PO Q6H PRN Mild Pain (1-3) or Fever Amoxicillin 500 mg 09/20/25 18:00 Amoxicillin 500 Mg Capsule PO 09/22/25 18:01 QPM MO Aspirin 81 mg 09/16/25 09:00 09/20/25 09:30 Aspirin 81 Mg Enteric Tablet PO 81 mg DAILY MO Administration Atorvastatin Calcium 80 mg 09/15/25 23:55 09/16/25 01:08 Atorvastatin 40 Mg Tablet PO 80 mg On Hold: 09/16/25 09:30 HS MO Administration Clopidogrel Bisulfate 75 mg 09/16/25 09:00 09/19/25 09:16 Clopidogrel Bisulfate 75 Mg Tablet PO 75 mg On Hold: 09/19/25 10:51 DAILY MO Administration Dextrose 12.5 gm 09/15/25 23:51 Dextrose 50% 25 Gm/50 Ml Syringe IV PUSH PRN PRN Hypoglycemia Protocol Glucose 15 gm 09/15/25 23:51 Glucose Oral Gel 15 Gm Of Glucse In 37.5 Gm Tube PO PRN PRN Hypoglycemia Protocol Heparin Sodium (Porcine) 5,000 units 09/16/25 22:00 09/20/25 14:10 Heparin Sodium 5,000 Units/Ml Vial SUB-Q 5,000 units Q8HR MO Administration Dextrose 1,000 mls @ 100 mls/hr 09/15/25 23:51 Dextrose 5% 1,000 Ml IVPB PRN PRN Hypoglycemia Protocol Sodium Bicarbonate 75 meq/ 1,075 mls @ 50 mls/hr 09/18/25 07:30 09/20/25 01:14 Sodium Chloride IV CONT 50 mls/hr .[id number] MO Administration Insulin Aspart 2 - 5 units 09/16/25 08:00 09/20/25 14:06 Insulin Aspart (*Bkc) 100 Units/Ml SUB-Q Not Given TIDWM [facility] Protocol Insulin Aspart 1 - 2 units 09/16/25 00:05 09/19/25 20:54 Insulin Aspart (*Bkc) 100 Units/Ml SUB-Q Not Given HS [facility] Protocol Insulin Aspart 2 units 09/17/25 17:00 09/20/25 13:00 Insulin Aspart (*Bkc) 100 Units/Ml SUB-Q 2 units TIDWM MO Administration Insulin Glargine 31 units 09/16/25 21:00 09/19/25 21:03 Insulin Glargine (*Bkc) 100 Units/Ml 0.3 units/kg (31 units) 31 units SUB-Q Administration HS [facility] Loperamide HCl 2 mg 09/16/25 14:06 09/18/25 08:06 Loperamide Hcl 2 Mg Capsule PO 2 mg PRN PRN Administration Diarrhea Metoprolol Tartrate 50 mg 09/15/25 23:55 09/20/25 09:30 Metoprolol Tartrate 50 Mg Tab PO 50 mg Q12HR MO Administration Pantoprazole Sodium 40 mg 09/15/25 23:55 09/19/25 21:03 Pantoprazole 40 Mg Tablet PO 40 mg HS MO Administration Sodium Bicarbonate 650 mg 09/19/25 10:55 09/20/25 09:30 Sodium Bicarbonate Tab 650 Mg Tablet PO 650 mg BID MO Administration Radiology Results: ITS Impressions Retroperitoneum Ultrasound 09/16/25 18:04 IMPRESSION: Nonobstructive right renal stone measures up to 1.4 cm. Bilateral renal cysts. Abdomen/Pelvis CT 09/16/25 20:16 IMPRESSION: No acute abnormality is noted in the abdomen and pelvis. All CT scans at this facility are performed using low dose modulation techniques as appropriate to perform exam including the following: automated exposure control; use of iterative reconstruction technique; adjustment of the mA and/or kV according to patient size (this includes techniques or standardized protocols for targeted exams where dose is matched to indication/reason for exam). Chest X-Ray 09/18/25 09:53 IMPRESSION: 1. No acute cardiopulmonary findings given portable technique. Labs Labs: Laboratory Results - last 24 hr 09/19/25 09/19/25 09/20/25 16:30 20:21 04:09 WBC 8.8 RBC 3.86 L Hgb 10.8 L Hct 32.8 L MCV 85.0 MCH 28.0 MCHC 32.9 RDW 15.0 H Plt Count 174 MPV 11.7 H Immature Gran % (Auto) 7.5 H Neut % (Auto) 66.9 Lymph % (Auto) 12.2 L [place] % (Auto) 7.0 Eos % (Auto) 5.4 H Baso % (Auto) 1.0 Lymph # (Auto) 1.08 [place] # (Auto) 0.6 Eos # (Auto) 0.5 H Baso # (Auto) 0.1 Abs Immat Gran (auto) 0.66 H Absolute Neuts (auto) 5.9 Absolute Nucleated RBC 0.000 Band Neutrophils % Not Reportable Nucleated RBC % 0.0 Platelet Estimate Adequate Large Platelets Present Anisocytosis 1+ [place] Cells 1+ Schistocytes None seen Sodium 133 L Potassium 3.9 Chloride 102 Carbon Dioxide 17 L Anion Gap 14 H BUN 120 H* Creatinine 10.83 H Estim Creat Clear Calc 5 Estimated GFR 3 L Glucose 115 H POC Capillary Glucose 160 H 151 H Calcium 8.5 Phosphorus 7.4 H Total Bilirubin 0.6 AST 52 H ALT 55 H Alkaline Phosphatase 84 Total Creatine Kinase 420 H Total Protein 6.2 L Albumin 3.0 L 09/20/25 09/20/25 09/20/25 07:58 12:04 15:38 WBC RBC Hgb Hct MCV MCH MCHC RDW Plt Count MPV Immature Gran % (Auto) Neut % (Auto) Lymph % (Auto) [place] % (Auto) Eos % (Auto) Baso % (Auto) Lymph # (Auto) [place] # (Auto) Eos # (Auto) Baso # (Auto) Abs Immat Gran (auto) Absolute Neuts (auto) Absolute Nucleated RBC Band Neutrophils % Nucleated RBC % Platelet Estimate Large Platelets Anisocytosis [place] Cells Schistocytes Sodium Potassium Chloride Carbon Dioxide Anion Gap BUN Creatinine Estim Creat Clear Calc Estimated GFR Glucose POC Capillary Glucose 90 140 H 172 H Calcium Phosphorus Total Bilirubin AST ALT Alkaline Phosphatase Total Creatine Kinase Total Protein Albumin Quality VTE Prophylaxis VTE prophylaxis: pharmacologic ordered
[2025-09-20] MEDS: AMOXICILLIN 500 MG CAPSULE PO (17:08)
[2025-09-20] MEDS: PANTOPRAZOLE 40 MG TABLET PO (21:20)
[2025-09-21] VITALS: BP 154/73; PULSE 70; RESP 20; TEMP 36.5; O2SAT 95
[2025-09-21 04:21] LABS: Hematocrit 32.3 % (37.0-47.0); Hemoglobin 10.5 g/dL (12.0-15.0); Immature Granulocyte Percent A 6.0 % (0-0.5); Lymphocytes Absolute Auto 1.21 K/mm3 (0.9-3.2); Mean Corpuscular HGB Conc 32.5 g/dl (32-36); Mean Corpuscular Hemoglobin 27.5 pg (26-34); Mean Corpuscular Volume 84.6 fl (80-100); Nucleated Red Blood Cells Absolute Auto 0.000 K/mm3 (0.0-0.012); Nucleated Red Blood Cells Perc 0.0 % (0.0-0.2); Platelet Count Result 165 k/mm3 (150-375); Red Blood Count 3.82 M/mm3 (4.2-5.4); White Blood Count 9.8 K/mm3 (4.5-10.0)
[2025-09-21 05:05] LABS: Alanine Aminotransferase 51 U/L (6-35); Albumin Level 3.0 g/dL (3.5-5.1); Alkaline Phosphatase 77 U/L (38-126); Anion Gap 13 mmol/L (4-12); Aspartate Amino Transferase 41 U/L (14-36); Bilirubin,Total 0.7 mg/dL (0.2-1.3); Calcium 8.3 mg/dL (8.4-10.2); Carbon Dioxide 18 mmol/L (22-30); Chloride 102 mmol/L (98-107); Creatine Kinase 321 U/L (30-135); Estimated CRCL calculation 5 ml/min; Estimated Glomerular Filt Rate 3; Glucose 85 mg/dL (65-110); Potassium 3.9 mmol/L (3.4-5.0); Sodium 133 mmol/L (137-145); Total Protein 6.1 g/dL (6.3-8.2)
[2025-09-21 05:28] LABS: Blood Urea Nitrogen 123 mg/dL (7-17)
[2025-09-21 05:34] LABS: Anisocytosis 1+; Burr Cells 1+; Schistocytes None Seen
[2025-09-21 08:00] VITALS: BP 134/94; PULSE 76; RESP 20; TEMP 36.3; O2SAT 98
--- NOTE | 2025-09-21 09:16 | P.PNNP_ITS ---
Progress Note: A&P Assessment and Plan (1) Acute kidney injury: Code(s): N17.9 - Acute kidney failure, unspecified Status: Acute Assessment and Plan: * ongoing deterioration noted * as noted by labs on presentation/admission (creatinine 6.9mg/dL) * multifactorial etiology: * #3 * prerenal factors (diarrhea) * diuretic use prior to admission * infection (UTI?) * other(? 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/dialysis * patient appears willing to proceed * I will re-attempt to discuss with her son today * follow trend of repeat labs and UOP (2) Stage 4 chronic kidney disease: Code(s): N18.4 - Chronic kidney disease, stage 4 (severe) Status: Chronic Assessment and Plan: * baseline creatine has been running ~ 2.0 - 2.7mg/dl in the last couple of years * though to be secondary to DM, HTN, vascular disease, and age-related changes based on outpatient evaluation: * fluctuations in kidney function seem to be related to issues and problems with recurrent kidney stones/nephrolithiasis as well as UTIs (3) Rhabdomyolysis: Code(s): M62.82 - Rhabdomyolysis Status: Acute Assessment and Plan: * as noted by elevated CPK levels * presumably precipitated by #4 * follow trend of CPK (4) Status post fall: Code(s): Z91.81 - History of falling Status: Acute Assessment and Plan: * as noted by admission history * mechanical in nature * PT/OT as tolerated (5) Diarrhea: Code(s): R19.7 - Diarrhea, unspecified Status: Acute Assessment and Plan: * improvement if not resolving * CT of A/P negative * stool culture with light growth of Campy. jejuni ssp. jejuni * need treatment? * imodium PRN (6) Urinary tract infection: Qualifiers: Hematuria presence: without hematuria Urinary tract infection type: s ite unspecified Qualified Code(s): N39.0 - Urinary tract infection, site not specified Code(s): N39.0 - Urinary tract infection, site not specified Status: Acute Assessment and Plan: * admission UA suggestive * follow culture results - E.coli * on antibiotics (7) Essential hypertension: Code(s): I10 - Essential (primary) hypertension Status: Acute Assessment and Plan: * reasonable control * follow trend of hemodynamics (8) Type 2 diabetes mellitus with diabetic chronic kidney disease: Qualifiers: Diabetes mellitus intermediate insulin use: with intermediate use Chronic kidney disease stage: stage 4 (severe) Qualified Code(s): E11.22 - Type 2 diabetes mellitus with diabetic chronic kidney disease; N18.4 - Chronic kidney disease, stage 4 (severe); Z79.4 - senior living (current) use of insulin Code(s): E11.22 - Type 2 diabetes mellitus with diabetic chronic kidney disease Status: Acute Assessment and Plan: * follow accu-cheks * glycemic control per hospitalist Will continue to follow. L Subjective Date/time seen: 09/21/25 09:16 Interval history: Follow-up for acute kidney injury/acute renal failure on chronic kidney disease. Renal function/creatinine & BUN continue to worsen/deteriorate as noted by trend of labs since admission; no complaints of shortness of breath but her still remains oliguric; I was unable to get a hold of her son yesterday so I will try again today; no apparent distress noted at the time of my visit. Exam 2 Narrative: General: elderly but WD/WN female in NAD Heart: normal S1 and S2; no rub Lungs: clear anteriorly Abdomen: soft, nontender, nondistended, positive bowel sounds Extremities: no cyanosis or clubbing; no edema Skin: warm and dry Objective Data Vital Signs Vital Signs: Vital Signs Temp Pulse Resp BP Pulse Ox O2 Del Method 09/21/25 09:09 97 09/21/25 08:00 97.4 F L 76 20 134/94 H 98 09/21/25 00:00 97.7 F 70 20 154/73 H 95 09/20/25 21:20 75 09/20/25 20:19 98.1 F 69 20 158/73 H 96 09/20/25 20:00 Room Air 09/20/25 15:36 97.9 F 69 20 147/74 H 97 09/20/25 14:00 72 Intake/Output Intake/Output: Intake & Output 09/18/25 09/19/25 09/20/2509/25 23:59 23:59 23:59 23:59 Intake Total 3757.5 3120.2 2942.5 Output Total 300 500 250 300 Balance 3457.5 2620.2 2692.5 -300 Meds/Results Medications: Active Medications Generic Name Dose Route Start Last Admin Trade Name Freq PRN Reason Stop Dose Admin Acetaminophen 500 mg 09/15/25 23:55 Acetaminophen 500 Mg Tablet PO Q6H PRN Mild Pain (1-3) or Fever Amoxicillin 500 mg 09/20/25 18:00 09/20/25 17:08 Amoxicillin 500 Mg Capsule PO 09/22/25 18:01 500 mg QPM MO Administration Aspirin 81 mg 09/16/25 09:00 09/21/25 09:49 Aspirin 81 Mg Enteric Tablet PO 81 mg DAILY MO Administration Atorvastatin Calcium 80 mg 09/15/25 23:55 09/16/25 01:08 Atorvastatin 40 Mg Tablet PO 80 mg On Hold: 09/16/25 09:30 HS MO Administration Clopidogrel Bisulfate 75 mg 09/16/25 09:00 09/19/25 09:16 Clopidogrel Bisulfate 75 Mg Tablet PO 75 mg On Hold: 09/19/25 10:51 DAILY MO Administration Dextrose 12.5 gm 09/15/25 23:51 Dextrose 50% 25 Gm/50 Ml Syringe IV PUSH PRN PRN Hypoglycemia Protocol Glucose 15 gm 09/15/25 23:51 Glucose Oral Gel 15 Gm Of Glucse In 37.5 Gm Tube PO PRN PRN Hypoglycemia Protocol Heparin Sodium (Porcine) 5,000 units 09/16/25 22:00 09/21/25 06:17 Heparin Sodium 5,000 Units/Ml Vial SUB-Q 5,000 units Q8HR MO Administration Dextrose 1,000 mls @ 100 mls/hr 09/15/25 23:51 Dextrose 5% 1,000 Ml IVPB PRN PRN Hypoglycemia Protocol Sodium Bicarbonate 75 meq/ 1,075 mls @ 50 mls/hr 09/18/25 07:30 09/20/25 22:26 Sodium Chloride IV CONT 50 mls/hr .[id number] MO Administration Insulin Aspart 2 - 5 units 09/16/25 08:00 09/21/25 09:19 Insulin Aspart (*Bkc) 100 Units/Ml SUB-Q Not Given TIDWM MO Protocol Insulin Aspart 1 - 2 units 09/16/25 00:05 09/20/25 21:15 Insulin Aspart (*Bkc) 100 Units/Ml SUB-Q Not Given HS [facility] Protocol Insulin Aspart 2 units 09/17/25 17:00 09/21/25 09:54 Insulin Aspart (*Bkc) 100 Units/Ml SUB-Q Not Given TIDWM MO Insulin Glargine 31 units 09/16/25 21:00 09/20/25 21:15 Insulin Glargine (*Bkc) 100 Units/Ml 0.3 units/kg (31 units) Not Given SUB-Q HS [facility] Loperamide HCl 2 mg 09/16/25 14:06 09/18/25 08:06 Loperamide Hcl 2 Mg Capsule PO 2 mg PRN PRN Administration Diarrhea Metoprolol Tartrate 50 mg 09/15/25 23:55 09/21/25 09:49 Metoprolol Tartrate 50 Mg Tab PO 50 mg Q12HR MO Administration Pantoprazole Sodium 40 mg 09/15/25 23:55 09/20/25 21:20 Pantoprazole 40 Mg Tablet PO 40 mg HS MO Administration Sodium Bicarbonate 650 mg 09/19/25 10:55 09/21/25 09:52 Sodium Bicarbonate Tab 650 Mg Tablet PO 650 mg BID MO Administration Radiology Results: ITS Impressions Retroperitoneum Ultrasound 09/16/25 18:04 IMPRESSION: Nonobstructive right renal stone measures up to 1.4 cm. Bilateral renal cysts. Abdomen/Pelvis CT 09/16/25 20:16 IMPRESSION: No acute abnormality is noted in the abdomen and pelvis. All CT scans at this facility are performed using low dose modulation techniques as appropriate to perform exam including the following: automated exposure control; use of iterative reconstruction technique; adjustment of the mA and/or kV according to patient size (this includes techniques or standardized protocols for targeted exams where dose is matched to indication/reason for exam). Chest X-Ray 09/18/25 09:53 IMPRESSION: 1. No acute cardiopulmonary findings given portable technique. Labs Labs: Laboratory Tests 09/21/25 04:14 09/21/25 04:14 Calcium 8.3 L Phosphorus 7.7 H Total Bilirubin 0.7 AST 41 H ALT 51 H Alkaline Phosphatase 77 Total Creatine Kinase 321 H Total Protein 6.1 L Albumin 3.0 L Microbiology 09/16/25 09:15 Stool Salmonella/Shigella Screen - Final 09/16/25 09:15 Stool Campylobacter Culture - Final Campy. jejuni ssp. jejuni 09/16/25 09:15 Stool Shiga Toxin (EIA) - Final
[2025-09-21 09:49] VITALS: PULSE 97
[2025-09-21] MEDS: METOPROLOL TARTRATE 50 MG TAB PO ×2 (09:49→21:04)
[2025-09-21] MEDS: ASPIRIN 81 MG ENTERIC TABLET PO (09:49)
[2025-09-21] MEDS: SODIUM BICARBONATE TAB 650 MG TABLET PO ×2 (09:52→17:19)
[2025-09-21] MEDS: BUMETANIDE INJ 2.5 MG/10 ML VIAL 2 MG IV PUSH (14:22)
--- NOTE | 2025-09-21 14:47 | PM.CNGS ---
Assessment and Plan Assessment and plan (1) JOSE E (acute kidney injury): Code(s): N17.9 - Acute kidney failure, unspecified Status: Acute Assessment and Plan: Patient presented to the emergency department 6 days ago after she had fallen the day prior and was unable to get up. She was diagnosed with rhabdomyolysis [place] of >35253. CK has continued to normalize, however BUN and Cr has continued to worsen. She is a known patient of Dr. Conroy. He has been following since her current admission. Unfortunately, patient has not responded well to conservative management, as her kidney function continues to decline. Cr today is 11.62. BUN 123. She is now to the point where she is a candidate for hemodialysis. Spoke with patient this afternoon and she was hesitant to proceeding with the surgery. When surgeon spoke to her later in the day she refused placement of catheter and further treatment with dialysis. We will respect her wishes at this time and check back tomorrow. (2) Stage 4 chronic kidney disease: Code(s): N18.4 - Chronic kidney disease, stage 4 (severe) Status: Chronic (3) Rhabdomyolysis: Code(s): M62.82 - Rhabdomyolysis Status: Acute (4) Urinary tract infection: Qualifiers: Hematuria presence: without hematuria Urinary tract infection type: site unspecified Qualified Code(s): N39.0 - Urinary tract infection, site not specified Code(s): N39.0 - Urinary tract infection, site not specified Status: Acute (5) Type 2 diabetes mellitus with diabetic chronic kidney disease: Qualifiers: Diabetes mellitus ocean transportation intermediary insulin use: with ocean transportation intermediary use Chronic kidney disease stage: stage 4 (severe) Qualified Code(s): E11.22 - Type 2 diabetes mellitus with diabetic chronic kidney disease; N18.4 - Chronic kidney disease, stage 4 (severe); Z79.4 - ocean transportation intermediary (current) use of insulin Code(s): E11.22 - Type 2 diabetes mellitus with diabetic chronic kidney disease Status: Acute Plan Discussed patient's case and plan of care with Dr. Beltre. History of Present Illness Consult details Consult date: 09/21/25 Reason for consult: other (tunneled HD catheter for hemodialysis) Requesting physician: Everett Hdez MD Narrative: Patient is a 75-year-old female with history of coronary artery disease (3 total stents placed, last one earlier this year, now on Plavix), CKD, insulin-dependent diabetes mellitus, hypertension who we have been asked to see in surgical consultation for placement of a tunneled hemodialysis catheter. Patient had fallen on 09/14 and was found on the ground the following day by her family. She was taken to [place] ED and was found to have a UTI and rhabdomyolysis wiht a CK of >1600. Transferred to [facility] for care. Nephrology consulted. Jesika is a known patient of Dr. Hdez and she follows with him in his office. The concern for intervention with dialysis was discussed with patient and her son bedside. CPK has continued to downtrend however BUN and creatinine have steadily increased. Kidney function has not improved with conservative management In general surgery team was consulted for placement of tunneled hemodialysis catheter. Today, BUN is 123 and creatinine is 11.62. Upon interview with patient, she is hesitant to starting dialysis, but does note that she has had discussions with Dr. Hdez about it. She has had a port placed on her right-sided chest for left breast cancer many years ago. The port has since been removed. She had a lumpectomy and chemo at this time. No other known surgeries to chest or neck. Patient states that she does get short of breath when lying flat. No chest pain. Never had dialysis in the past. [facility] Past Medical History Medical History History of left heart catheterization Chronic obstructive pulmonary disease Per patient report she had PFTs done in [place] however if she saw the green jobs trainer here who stated he did not see any signs and symptoms of COPD and that the patient refused to have a PFT or obstructive sleep studies performed. Insulin dependent type 2 diabetes mellitus Coronary artery disease Chronic kidney disease, stage 4 (severe) Cancer of left breast Status post lumpectomy and chemoradiation. Gastroesophageal reflux disease Morbid (severe) obesity due to excess calories Type 2 diabetes mellitus with diabetic chronic kidney disease Cholelithiasis Kidney stone Hypertension Arthritis Surgical History Surgical History History of wisdom tooth extraction History of heart artery stent History of bilateral cataract extraction History of lumpectomy of left breast History of extraction of renal calculus Family History Family History Mother Family history of diabetes mellitus in first degree relative Cancer CHF (congestive heart failure), NYHA class I Diabetes mellitus Family history of cardiovascular disease Family history of congestive heart failure Family history of hearing loss Family history of heart disease in male family member before age 55 Heart disease Family history of thyroid disease Thyroid disease Hypertension Father Cancer CHF (congestive heart failure), NYHA class I Family history of arthritis Family history of cardiovascular disease Family history of congestive heart failure Family history of hearing loss Family history of heart disease in male family member before age 55 Heart disease Family history of obesity Sibling CHF (congestive heart failure), NYHA class I Other Family history of malignant neoplasm Social History Social History Social History: 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ion maker: Epi Falk, son. Code status: Full code. Smoking packs per day: 1 Smoking cigarettes per day: 20.0 Years smoked: 10 Smoking pack-years: 10.00 Smoking status: Former smoker Tobacco type: cigarettes Second hand tobacco smoke exposure: No Smoking end date: 09/21/81 Alcohol intake: current Drinks per week: 1 Alcohol use details: once a month Substance use: never Substance use type: does not use Lack of Transportation: No Lack of Food: Never True Current Housing: I Have Housing Concerned About Future Housing: No Difficulty Paying Gas/Electric Bills: No Difficulty Paying for Meds: YES Currently Unemployed: No Education: Associate Degree Difficulty w/ Childcare or Family Care: No Living arrangements: with family Additional living arrangements comments: Lives in [place]. 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 Gender identity (if verbalized by the patient): Female Spiritual care concerns: No Meds Home Medications and Allergies Home Medications ?Medication ?Instructions ?Recorded ?Confirmed ?Type pantoprazole 40 mg tablet,delayed 40 mg PO HS 01/07/20 09/15/25 History release atorvastatin 80 mg tablet 80 mg PO HS 08/24/20 09/15/25 History cholecalciferol (vitamin D3) 50 50 mcg PO HS 02/15/21 09/15/25 History mcg (2,000 unit) capsule aspirin 81 mg tablet,delayed 81 mg PO DAILY 12/13/23 09/15/25 History release (Adult Aspirin Regimen) lancets 33 gauge (OneTouch Delica #300 ea 02/03/24 09/15/25 Rx Plus Lancet) furosemide 20 mg tablet See Rx Instructions .Route 10/15/24 09/15/25 Rx .COMPLEX #180 tabs clopidogrel 75 mg tablet 75 mg PO DAILY 03/21/25 09/15/25 History nitroglycerin 0.4 mg sublingual 0.4 mg sublingual Q5M 03/21/25 09/15/25 History tablet pen needle, diabetic 31 gauge x #300 ea 04/05/25 09/15/25 Rx 5/16 (TRUEplus Pen Needle) blood-glucose meter (Accu-Chek #1 ea 05/31/25 09/15/25 Rx Guide Glucose Meter) calcitriol 0.25 mcg capsule See Rx Instructions .Route 06/07/25 09/15/25 Rx .COMPLEX #12 caps insulin regular hum U-500 conc 500 See Rx Instructions .Route 08/09/25 09/15/25 Rx unit/mL(3 mL) subcut pen (Humulin .COMPLEX #45 mL R U-500 (Conc) Insulin Kwikpen) metoprolol tartrate 50 mg tablet 50 mg PO BID 08/31/25 09/15/25 History blood sugar diagnostic (Accu-Chek #100 strips 09/13/25 09/15/25 Rx Guide test strips) Allergies Allergy/AdvReac Type Severity Reaction Status Date / Time hydrocodone Allergy Severe rash Verified 09/15/25 23:47 adhesive tape Allergy Unknown rash Verified 09/15/25 23:47 [email or web address] Allergy Unknown rash Verified 09/15/25 23:47 peach Allergy Unknown Anaphylactic Verified 09/15/25 23:47 Shock,throat closes,throat closes,Anaphylactic prochlorperazine Allergy Unknown Verified 09/15/25 23:47 adhesive AdvReac Intermediate TAPE= RASH Verified 09/15/25 23:47 DYE USED FOR CLOTHING Allergy Unknown SWELLING, Uncoded 08/31/25 13:20 INFECTION FROM DYE Vital Signs Vital Signs - 24 hr 09/20/25 15:36 09/20/25 20:00 09/20/25 20:19 Temperature 97.9 F 98.1 F Pulse Rate 69 69 Respiratory Rate 20 20 Blood Pressure 147/74 H 158/73 H Pulse Oximetry 97 96 Oxygen Delivery Room Air 09/20/25 21:20 09/21/25 00:00 09/21/25 08:00 Temperature 97.7 F 97.4 F L Pulse Rate 75 70 76 Respiratory Rate 20 20 Blood Pressure 154/73 H 134/94 H Pulse Oximetry 95 98 Oxygen Delivery 09/21/25 09:49 Temperature Pulse Rate 97 Respiratory Rate Blood Pressure Pulse Oximetry Oxygen Delivery Exam Const: General: comfortable and no acute distress Eyes: General: appearance normal, both eyes and all related structures Neck: Neck: full ROM and supple Resp: Effort & Inspection: normal respiratory effort Other: satting well on room air Cardio: Rate: regular rate Skin: General skin exam: normal color and no rashes or lesions noted Extrem: General: normal to inspection Psych: Mental Status: mental status grossly normal Results Labs 09/21/25 04:14 09/21/25 04:14 Labs: Abnormal lab results 09/20/25 09/21/25 09/21/25 Range/Units 15:38 04:14 09:18 RBC 3.82 L (4.2-5.4) M/mm3 Hgb 10.5 L (12.0-15.0) g/dL Hct 32.3 L (37.0-47.0) % RDW 15.0 H (11.5-14.5) % MPV 11.0 H (7.4-10.4) fl Immature Gran % (Auto) 6.0 H (0-0.5) % Lymph % (Auto) 12.4 L (18.3-44.2) % [place] # (Auto) 0.7 H (0.1-0.6) K/mm3 Eos # (Auto) 0.4 H (0-0.3) K/mm3 Abs Immat Gran (auto) 0.59 H (0.00-0.031) K/mm3 Absolute Neuts (auto) 6.8 H (1.3-6.7) K/mm3 Sodium 133 L (137-145) mmol/L Carbon Dioxide 18 L (22-30) mmol/L Anion Gap 13 H (4-12) mmol/L BUN 123 H* (7-17) mg/dL Creatinine 11.62 H (0.7-1.0) mg/dL Estimated GFR 3 L (59 - ) POC Capillary Glucose 172 H 110 H (65-105) mg/dl Calcium 8.3 L (8.4-10.2) mg/dL Phosphorus 7.7 H (2.5-4.5) mg/dL AST 41 H (14-36) U/L ALT 51 H (6-35) U/L Total Creatine Kinase 321 H (30-135) U/L Total Protein 6.1 L (6.3-8.2) g/dL Albumin 3.0 L (3.5-5.1) g/dL Diabetes panel 09/21/25 Range/Units 04:14 Sodium 133 L (137-145) mmol/L Potassium 3.9 (3.4-5.0) mmol/L Chloride 102 (98-107) mmol/L Carbon Dioxide 18 L (22-30) mmol/L BUN 123 H* (7-17) mg/dL Creatinine 11.62 H (0.7-1.0) mg/dL Glucose 85 (65-110) mg/dL Calcium 8.3 L (8.4-10.2) mg/dL AST 41 H (14-36) U/L ALT 51 H (6-35) U/L Alkaline Phosphatase 77 (38-126) U/L Total Protein 6.1 L (6.3-8.2) g/dL Albumin 3.0 L (3.5-5.1) g/dL Calcium panel 09/21/25 Range/Units 04:14 Calcium 8.3 L (8.4-10.2) mg/dL Phosphorus 7.7 H (2.5-4.5) mg/dL Albumin 3.0 L (3.5-5.1) g/dL Pituitary panel 09/21/25 Range/Units 04:14 Sodium 133 L (137-145) mmol/L Potassium 3.9 (3.4-5.0) mmol/L Chloride 102 (98-107) mmol/L Carbon Dioxide 18 L (22-30) mmol/L BUN 123 H* (7-17) mg/dL Creatinine 11.62 H (0.7-1.0) mg/dL Glucose 85 (65-110) mg/dL Calcium 8.3 L (8.4-10.2) mg/dL Adrenal panel 09/21/25 Range/Units 04:14 Sodium 133 L (137-145) mmol/L Potassium 3.9 (3.4-5.0) mmol/L Chloride 102 (98-107) mmol/L Carbon Dioxide 18 L (22-30) mmol/L BUN 123 H* (7-17) mg/dL Creatinine 11.62 H (0.7-1.0) mg/dL Glucose 85 (65-110) mg/dL Calcium 8.3 L (8.4-10.2) mg/dL Total Bilirubin 0.7 (0.2-1.3) mg/dL AST 41 H (14-36) U/L ALT 51 H (6-35) U/L Alkaline Phosphatase 77 (38-126) U/L Total Protein 6.1 L (6.3-8.2) g/dL Albumin 3.0 L (3.5-5.1) g/dL All other labs normal.
[2025-09-21 15:38] VITALS: BP 158/74; PULSE 71; RESP 20; TEMP 36.1; O2SAT 96
--- NOTE | 2025-09-21 17:07 | P.PNIM_ITS ---
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 Status: Acute (2) Morbid obesity: Code(s): E66.01 - Morbid (severe) obesity due to excess calories Status: Acute (3) ONEL (acute kidney injury): Code(s): N17.9 - Acute kidney failure, unspecified Status: Acute (4) Chronic renal failure, stage 4 (severe): Code(s): N18.4 - Chronic kidney disease, stage 4 (severe) Status: Chronic (5) Diarrhea: Code(s): R19.7 - Diarrhea, unspecified Status: Acute (6) Rhabdomyolysis: Code(s): M62.82 - Rhabdomyolysis Status: Acute Plan 75-year-old female with past medical history of obesity, CKD stage 4, coronary artery disease, insulin-dependent diabetes presenting to [facility] on 09/15/2025 after a mechanical fall. Then transferred to [facility], patient of Dr. Hdez Nephrology. She has been having diarrhea for 5 days. C diff was negative. On to have Onel I on pre-existing CKD along with severe rhabdomyolysis. upon arrival patient CK was >16,000 it has trended down to 321, patient clinically symptoms are improving however SCr and BUN rising, but her potassium 4.3 patient does not was HD, want to go under hospice care. 75-year-old female with past medical history of obesity, CKD stage 4, coronary artery disease, insulin-dependent diabetes presenting to [facility] on 09/15/2025 after a mechanical fall. Then transferred to [facility], patient of Dr. Hdez Nephrology. She has been having diarrhea for 5 days. C diff was negative. On to have Onel I on pre-existing CKD along with severe rhabdomyolysis. 1. Fall: Mechanical Unable to get up for extended period of time PT/OT when appropriate 2. Diarrhea: Improved C diff negative Stool culture unremarkable CT abdomen pelvis without contrast was unremarkable Brat diet Imodium p.r.n. 3. Onel I on pre-existing CKD stage IV: Rhabdomyolysis Nephrology following Worsening kidney function Improving CPK renal ultrasound shows nonobstructive kidney disease Will hold statin Continue with oral bicarb drip monitor urine output Continue with Lott ? need for dialysis, will defer to Nephrology 4. Diabetes mellitus: Blood glucose checked t.i.d. a.c. HS continue with Lantus 31 units at nighttime C/w SS+Meal time Adjust dose as needed 5. Code status: Full 6. DVT prophylaxis: Heparin subQ 7. Disposition: Pending improvement, can be transferred out of IMU Subjective Date/time seen: 09/21/25 17:07 Interval history: No acute events over night 75-year-old female with past medical history of obesity, CKD stage 4, coronary artery disease, insulin-dependent diabetes presenting to [facility] on 09/15/2025 after a mechanical fall. Then transferred to [facility], patient of Dr. Hdez Nephrology. She has been having diarrhea for 5 days. C diff was negative. On to have Onel I on pre-existing CKD along with severe rhabdomyolysis. upon arrival patient CK was >16,000 it has trended down to 321, patient clinically symptoms are improving however SCr and BUN rising, but her potassium 4.3 patient does not was HD, want to go under hospice care. Review of Systems Review of Systems: All systems reviewed & are unremarkable except as noted in HPI and below Exam Narrative: HEENT: PERRL, sclerae nonicteric, pharyngeal mucosa pink and intact NECK: No JVD CHEST: Clear to auscultation. Normal effort HEART: NL S1/S2, regular, no murmur ABDOMEN: BS+, soft, nontender, no mass, no bruits EXTREMITIES: No cyanosis, edema, or clubbing NEUROLOGIC: CN intact and symmetric to inspection MUSCULOSKELETAL: Tone and strength symmetric PSYCH: Alert. Oriented to person, place, and time Objective Data Vital Signs Vital Signs: Vital Signs - 24 hr 09/20/25 20:00 09/20/25 20:19 09/20/25 21:20 Temperature 36.7 C Pulse Rate 69 75 Respiratory Rate 20 Blood Pressure 158/73 H Pulse Oximetry 96 Oxygen Delivery Room Air 09/21/25 00:00 09/21/25 08:00 09/21/25 09:49 Temperature 36.5 C 36.3 C L Pulse Rate 70 76 97 Respiratory Rate 20 20 Blood Pressure 154/73 H 134/94 H Pulse Oximetry 95 98 Oxygen Delivery 09/21/25 15:38 Temperature 36.1 C L Pulse Rate 71 Respiratory Rate 20 Blood Pressure 158/74 H Pulse Oximetry 96 Oxygen Delivery Intake/Output Intake/Output: Intake & Output 09/18/25 09/19/25 09/20/25 09/21/25 23:59 23:59 23:59 23:59 Intake Total 3757.5 3120.2 2942.5 240 Output Total 300 902 729 7789 Balance 3457.5 2620.2 2692.5 -1060 Meds/Results Medications: Active Medications Generic Name Dose Route Start Last Admin Trade Name Freq PRN Reason Stop Dose Admin Acetaminophen 500 mg 09/15/25 23:55 Acetaminophen 500 Mg Tablet PO Q6H PRN Mild Pain (1-3) or Fever Amoxicillin 500 mg 09/20/25 18:00 09/20/25 17:08 Amoxicillin 500 Mg Capsule PO 09/22/25 18:01 500 mg QPM MO Administration Aspirin 81 mg 09/16/25 09:00 09/21/25 09:49 Aspirin 81 Mg Enteric Tablet PO 81 mg DAILY MO Administration Atorvastatin Calcium 80 mg 09/15/25 23:55 09/16/25 01:08 Atorvastatin 40 Mg Tablet PO 80 mg On Hold: 09/16/25 09:30 HS MO Administration Clopidogrel Bisulfate 75 mg 09/16/25 09:00 09/19/25 09:16 Clopidogrel Bisulfate 75 Mg Tablet PO 75 mg On Hold: 09/19/25 10:51 DAILY MO Administration Dextrose 12.5 gm 09/15/25 23:51 Dextrose 50% 25 Gm/50 Ml Syringe IV PUSH PRN PRN Hypoglycemia Protocol Glucose 15 gm 09/15/25 23:51 Glucose Oral Gel 15 Gm Of Glucse In 37.5 Gm Tube PO PRN PRN Hypoglycemia Protocol Heparin Sodium (Porcine) 5,000 units 09/16/25 22:00 09/21/25 14:23 Heparin Sodium 5,000 Units/Ml Vial SUB-Q 5,000 units Q8HR MO Administration Dextrose 1,000 mls @ 100 mls/hr 09/15/25 23:51 Dextrose 5% 1,000 Ml IVPB PRN PRN Hypoglycemia Protocol Sodium Bicarbonate 75 meq/ 1,075 mls @ 50 mls/hr 09/18/25 07:30 09/20/25 22:26 Sodium Chloride IV CONT 50 mls/hr .[id number] MO Administration Insulin Aspart 2 - 5 units 09/16/25 08:00 09/21/25 14:09 Insulin Aspart (*Bkc) 100 Units/Ml SUB-Q Not Given TIDWM [facility] Protocol Insulin Aspart 1 - 2 units 09/16/25 00:05 09/20/25 21:15 Insulin Aspart (*Bkc) 100 Units/Ml SUB-Q Not Given HS [facility] Protocol Insulin Aspart 2 units 09/17/25 17:00 09/21/25 14:11 Insulin Aspart (*Bkc) 100 Units/Ml SUB-Q Not Given TIDWM MO Insulin Glargine 31 units 09/16/25 21:00 09/20/25 21:15 Insulin Glargine (*Bkc) 100 Units/Ml 0.3 units/kg (31 units) Not Given SUB-Q HS MO Loperamide HCl 2 mg 09/16/25 14:06 09/18/25 08:06 Loperamide Hcl 2 Mg Capsule PO 2 mg PRN PRN Administration Diarrhea Metoprolol Tartrate 50 mg 09/15/25 23:55 09/21/25 09:49 Metoprolol Tartrate 50 Mg Tab PO 50 mg Q12HR MO Administration Pantoprazole Sodium 40 mg 09/15/25 23:55 09/20/25 21:20 Pantoprazole 40 Mg Tablet PO 40 mg HS MO Administration Sodium Bicarbonate 650 mg 09/19/25 10:55 09/21/25 09:52 Sodium Bicarbonate Tab 650 Mg Tablet PO 650 mg BID MO Administration Radiology Results: ITS Impressions Retroperitoneum Ultrasound 09/16/25 18:04 IMPRESSION: Nonobstructive right renal stone measures up to 1.4 cm. Bilateral renal cysts. Abdomen/Pelvis CT 09/16/25 20:16 IMPRESSION: No acute abnormality is noted in the abdomen and pelvis. All CT scans at this facility are performed using low dose modulation techniques as appropriate to perform exam including the following: automated exposure control; use of iterative reconstruction technique; adjustment of the mA and/or kV according to patient size (this includes techniques or standardized protocols for targeted exams where dose is matched to indication/reason for exam). Chest X-Ray 09/18/25 09:53 IMPRESSION: 1. No acute cardiopulmonary findings given portable technique. Labs Labs: Laboratory Results - last 24 hr 09/20/25 09/21/25 09/21/25 19:37 04:14 07:29 WBC 9.8 RBC 3.82 L Hgb 10.5 L Hct 32.3 L MCV 84.6 MCH 27.5 MCHC 32.5 RDW 15.0 H Plt Count 165 MPV 11.0 H Immature Gran % (Auto) 6.0 H Neut % (Auto) 68.9 Lymph % (Auto) 12.4 L [place] % (Auto) 7.4 Eos % (Auto) 4.2 Baso % (Auto) 1.1 Lymph # (Auto) 1.21 [place] # (Auto) 0.7 H Eos # (Auto) 0.4 H Baso # (Auto) 0.1 Abs Immat Gran (auto) 0.59 H Absolute Neuts (auto) 6.8 H Absolute Nucleated RBC 0.000 Band Neutrophils % Not Reportable Nucleated RBC % 0.0 Platelet Estimate Adequate Anisocytosis 1+ [place] Cells 1+ Schistocytes None seen Sodium 133 L Potassium 3.9 Chloride 102 Carbon Dioxide 18 L Anion Gap 13 H BUN 123 H* Creatinine 11.62 H Estim Creat Clear Calc 5 Estimated GFR 3 L Glucose 85 POC Capillary Glucose 95 92 Calcium 8.3 L Phosphorus 7.7 H Total Bilirubin 0.7 AST 41 H ALT 51 H Alkaline Phosphatase 77 Total Creatine Kinase 321 H Total Protein 6.1 L Albumin 3.0 L 09/21/25 09/21/25 09/21/25 09:18 11:20 15:40 WBC RBC Hgb Hct MCV MCH MCHC RDW Plt Count MPV Immature Gran % (Auto) Neut % (Auto) Lymph % (Auto) [place] % (Auto) Eos % (Auto) Baso % (Auto) Lymph # (Auto) [place] # (Auto) Eos # (Auto) Baso # (Auto) Abs Immat Gran (auto) Absolute Neuts (auto) Absolute Nucleated RBC Band Neutrophils % Nucleated RBC % Platelet Estimate Anisocytosis [place] Cells Schistocytes Sodium Potassium Chloride Carbon Dioxide Anion Gap BUN Creatinine Estim Creat Clear Calc Estimated GFR Glucose POC Capillary Glucose 110 H 100 121 H Calcium Phosphorus Total Bilirubin AST ALT Alkaline Phosphatase Total Creatine Kinase Total Protein Albumin
[2025-09-21] MEDS: AMOXICILLIN 500 MG CAPSULE PO (17:19)
[2025-09-21] MEDS: SODIUM BICARBONATE 8.4% 75 MEQ in SODIUM CHLORIDE 0.45% 1,000 ML 50 MEQ IV CONT (17:19)
[2025-09-21 17:39] LABS: Add Urine Microscopic? YES; Appearance Urine Clear (Clear); Glucose Urine UA Negative (Negative); Leukocyte Esterase Ur Trace LEU/UL (Negative); Nitrate Urine Negative (Negative); Non Pathogenic Casts 0-2; Specific Grav Ur 1.007 (1.001-1.035)
[2025-09-21 21:04] VITALS: PULSE 96
[2025-09-21] MEDS: PANTOPRAZOLE 40 MG TABLET PO (21:05)
[2025-09-22] VITALS: BP 167/72; PULSE 73; RESP 20; TEMP 36.8; O2SAT 94
[2025-09-22 08:00] VITALS: BP 148/70; PULSE 70; RESP 14; TEMP 36.6; O2SAT 97
[2025-09-22 08:23] LABS: Alanine Aminotransferase 41 U/L (6-35); Albumin Level 3.0 g/dL (3.5-5.1); Alkaline Phosphatase 67 U/L (38-126); Anion Gap 16 mmol/L (4-12); Aspartate Amino Transferase 31 U/L (14-36); Bilirubin,Total 0.7 mg/dL (0.2-1.3); Calcium 8.0 mg/dL (8.4-10.2); Carbon Dioxide 17 mmol/L (22-30); Chloride 101 mmol/L (98-107); Estimated CRCL calculation 5 ml/min; Estimated Glomerular Filt Rate 3; Glucose 104 mg/dL (65-110); Potassium 4.3 mmol/L (3.4-5.0); Sodium 134 mmol/L (137-145); Total Protein 5.9 g/dL (6.3-8.2)
[2025-09-22 08:36] LABS: Blood Urea Nitrogen 135 mg/dL (7-17)
[2025-09-22 08:37] LABS: Hematocrit 30.8 % (37.0-47.0); Hemoglobin 10.1 g/dL (12.0-15.0); Immature Granulocyte Percent A 4.3 % (0-0.5); Lymphocytes Absolute Auto 1.04 K/mm3 (0.9-3.2); Mean Corpuscular HGB Conc 32.8 g/dl (32-36); Mean Corpuscular Hemoglobin 27.7 pg (26-34); Mean Corpuscular Volume 84.6 fl (80-100); Nucleated Red Blood Cells Absolute Auto 0.000 K/mm3 (0.0-0.012); Nucleated Red Blood Cells Perc 0.0 % (0.0-0.2); Platelet Count Result 149 k/mm3 (150-375); Red Blood Count 3.64 M/mm3 (4.2-5.4); White Blood Count 8.9 K/mm3 (4.5-10.0)
[2025-09-22] MEDS: SODIUM BICARBONATE TAB 650 MG TABLET PO ×2 (09:08→17:15)
[2025-09-22] MEDS: METOPROLOL TARTRATE 50 MG TAB PO ×2 (09:08→22:03)
[2025-09-22] MEDS: ASPIRIN 81 MG ENTERIC TABLET PO (09:08)
--- NOTE | 2025-09-22 10:42 | PCNWS ---
Weekly nutritional screen. Patient is tolerating current Diabetic consistent carb diet with adequate intake, 100% all meals. No weight loss reported. No nutritional needs at this time.
[2025-09-22] MEDS: INSULIN ASPART (*BKC) 100 UNITS/ML SUB-Q ×2 (12:56→17:29)
[2025-09-22 14:27] VITALS: BP 167/78; PULSE 72; RESP 18; TEMP 37; O2SAT 95
--- NOTE | 2025-09-22 15:06 | P.PNNP_ITS ---
Progress Note: A&P Assessment and Plan (1) Acute kidney injury: Code(s): N17.9 - Acute kidney failure, unspecified Status: Acute Assessment and Plan: * ongoing deterioration noted * as noted by labs on presentation/admission (creatinine 6.9mg/dL) * multifactorial etiology: * #3 * prerenal factors (diarrhea) * diuretic use prior to admission * infection (UTI?) * other(? 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 * HOWEVER, patient has made quite clear that she is not willing to do renal replacement therapy/dialysis * follow trend of repeat labs and UOP (2) Stage 4 chronic kidney disease: Code(s): N18.4 - Chronic kidney disease, stage 4 (severe) Status: Chronic Assessment and Plan: * baseline creatine has been running ~ 2.0 - 2.7mg/dl in the last couple of years * though to be secondary to DM, HTN, vascular disease, and age-related changes based on outpatient evaluation: * fluctuations in kidney function seem to be related to issues and problems with recurrent kidney stones/nephrolithiasis as well as UTIs (3) Rhabdomyolysis: Code(s): M62.82 - Rhabdomyolysis Status: Acute Assessment and Plan: * as noted by elevated CPK levels * presumably precipitated by #4 * follow trend of CPK (4) Status post fall: Code(s): Z91.81 - History of falling Status: Acute Assessment and Plan: * as noted by admission history * mechanical in nature * PT/OT as tolerated (5) Diarrhea: Code(s): R19.7 - Diarrhea, unspecified Status: Acute Assessment and Plan: * improvement if not resolving * CT of A/P negative * stool culture with light growth of Campy. jejuni ssp. jejuni * need treatment? * imodium PRN (6) Urinary tract infection: Qualifiers: Hematuria presence: without hematuria Urinary tract infection type: s ite unspecified Qualified Code(s): N39.0 - Urinary tract infection, site not specified Code(s): N39.0 - Urinary tract infection, site not specified Status: Acute Assessment and Plan: * admission UA suggestive * follow culture results - E.coli * on antibiotics (7) Essential hypertension: Code(s): I10 - Essential (primary) hypertension Status: Acute Assessment and Plan: * reasonable control * follow trend of hemodynamics (8) Type 2 diabetes mellitus with diabetic chronic kidney disease: Qualifiers: Diabetes mellitus [facility] insulin use: with long term care administrator use Chronic kidney disease stage: stage 4 (severe) Qualified Code(s): E11.22 - Type 2 diabetes mellitus with diabetic chronic kidney disease; N18.4 - Chronic kidney disease, stage 4 (severe); 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 Will continue to follow. L Subjective Date/time seen: 09/22/25 15:06 Interval history: Follow-up for acute kidney injury/acute renal failure on chronic kidney disease. Despite my extensive conversation with the patient as well as her son yesterday regarding dialysis and initially willing to proceed with this intervention, she changed her mind and has decided not to pursue renal replacement therapy/dialysis; given a trial dose of IV bumex yesterday afternoon with good urine output/response noted; otherwise, no apparent distress voiced at the time of my visit. Exam 2 Narrative: General: elderly but WD/WN female in NAD Heart: normal S1 and S2; no rub Lungs: clear anteriorly Abdomen: soft, nontender, nondistended, positive bowel sounds Extremities: no cyanosis or clubbing; no edema Skin: warm and intact Objective Data Vital Signs Vital Signs: Vital Signs Temp Pulse Resp BP Pulse Ox O2 Del Method O2 Flow Rate 09/22/25 08:00 Room Air 09/22/25 08:00 98.2 F 70 20 153/63 H 95 09/22/25 05:23 96 Nasal Cannula 2 09/21/25 22:03 Room Air 09/21/25 22:03 74 09/21/25 21:54 97.7 F 71 20 152/72 H 96 Intake/Output Intake/Output: Intake & Output 09/20/25 09/21/25 09/22/25 09/23/25 23:59 23:59 23:59 23:59 Intake Total 2942.5 1924.2 820 Output Total 250 1650 1350 Balance 2692.5 274.2 -530 Meds/Results Medications: Active Medications Generic Name Dose Route Start Last Admin Trade Name Freq PRN Reason Stop Dose Admin Acetaminophen 500 mg 09/15/25 23:55 Acetaminophen 500 Mg Tablet PO Q6H PRN Mild Pain (1-3) or Fever Aspirin 81 mg 09/16/25 09:00 09/22/25 09:08 Aspirin 81 Mg Enteric Tablet PO 81 mg DAILY MO Administration Atorvastatin Calcium 80 mg 09/15/25 23:55 09/16/25 01:08 Atorvastatin 40 Mg Tablet PO 80 mg On Hold: 09/16/25 09:30 HS MO Administration Clopidogrel Bisulfate 75 mg 09/16/25 09:00 09/19/25 09:16 Clopidogrel Bisulfate 75 Mg Tablet PO 75 mg On Hold: 09/19/25 10:51 DAILY MO Administration Dextrose 12.5 gm 09/15/25 23:51 Dextrose 50% 25 Gm/50 Ml Syringe IV PUSH PRN PRN Hypoglycemia Protocol Glucose 15 gm 09/15/25 23:51 Glucose Oral Gel 15 Gm Of Glucse In 37.5 Gm Tube PO PRN PRN Hypoglycemia Protocol Heparin Sodium (Porcine) 5,000 units 09/16/25 22:00 09/22/25 22:03 Heparin Sodium 5,000 Units/Ml Vial SUB-Q 5,000 units Q8HR MO Administration Dextrose 1,000 mls @ 100 mls/hr 09/15/25 23:51 Dextrose 5% 1,000 Ml IVPB PRN PRN Hypoglycemia Protocol Insulin Aspart 2 - 5 units 09/16/25 08:00 09/22/25 17:14 Insulin Aspart (*Bkc) 100 Units/Ml SUB-Q Not Given TIDWM [facility] Protocol Insulin Aspart 1 - 2 units 09/16/25 00:05 09/22/25 22:01 Insulin Aspart (*Bkc) 100 Units/Ml SUB-Q Not Given HS [facility] Protocol Insulin Aspart 2 units 09/17/25 17:00 09/22/25 17:29 Insulin Aspart (*Bkc) 100 Units/Ml SUB-Q 2 units TIDWM MO Administration Insulin Glargine 31 units 09/16/25 21:00 09/22/25 22:07 Insulin Glargine (*Bkc) 100 Units/Ml 0.3 units/kg (31 units) 31 units SUB-Q Administration HS MO Loperamide HCl 2 mg 09/16/25 14:06 09/18/25 08:06 Loperamide Hcl 2 Mg Capsule PO 2 mg PRN PRN Administration Diarrhea Metoprolol Tartrate 50 mg 09/15/25 23:55 09/22/25 22:03 Metoprolol Tartrate 50 Mg Tab PO 50 mg Q12HR MO Administration Pantoprazole Sodium 40 mg 09/15/25 23:55 09/22/25 22:03 Pantoprazole 40 Mg Tablet PO 40 mg HS MO Administration Sodium Bicarbonate 650 mg 09/19/25 10:55 09/22/25 17:15 Sodium Bicarbonate Tab 650 Mg Tablet PO 650 mg BID MO Administration Radiology Results: ITS Impressions Retroperitoneum Ultrasound 09/16/25 18:04 IMPRESSION: Nonobstructive right renal stone measures up to 1.4 cm. Bilateral renal cysts. Abdomen/Pelvis CT 09/16/25 20:16 IMPRESSION: No acute abnormality is noted in the abdomen and pelvis. All CT scans at this facility are performed using low dose modulation techniques as appropriate to perform exam including the following: automated exposure control; use of iterative reconstruction technique; adjustment of the mA and/or kV according to patient size (this includes techniques or standardized protocols for targeted exams where dose is matched to indication/reason for exam). Chest X-Ray 09/18/25 09:53 IMPRESSION: 1. No acute cardiopulmonary findings given portable technique. Labs Labs: Laboratory Tests 09/22/25 08:07 09/22/25 07:17 Calcium 8.0 L Phosphorus 9.2 H Total Bilirubin 0.7 AST 31 ALT 41 H Alkaline Phosphatase 67 Total Protein 5.9 L Albumin 3.0 L
[2025-09-22] MEDS: AMOXICILLIN 500 MG CAPSULE PO (17:15)
[2025-09-22 21:54] VITALS: BP 152/72; PULSE 71; RESP 20; TEMP 36.5; O2SAT 96
[2025-09-22 22:03] VITALS: PULSE 74
[2025-09-22] MEDS: PANTOPRAZOLE 40 MG TABLET PO (22:03)
[2025-09-22] MEDS: INSULIN GLARGINE (*BKC) 100 UNITS/ML 31 UNITS SUB-Q (22:07)
[2025-09-23 05:23] VITALS: O2SAT 96
[2025-09-23 06:37] LABS: Hematocrit 31.3 % (37.0-47.0); Hemoglobin 10.4 g/dL (12.0-15.0); Immature Granulocyte Percent A 4.2 % (0-0.5); Lymphocytes Absolute Auto 1.04 K/mm3 (0.9-3.2); Mean Corpuscular HGB Conc 33.2 g/dl (32-36); Mean Corpuscular Hemoglobin 28.3 pg (26-34); Mean Corpuscular Volume 85.1 fl (80-100); Nucleated Red Blood Cells Absolute Auto 0.000 K/mm3 (0.0-0.012); Nucleated Red Blood Cells Perc 0.0 % (0.0-0.2); Platelet Count Result 161 k/mm3 (150-375); Red Blood Count 3.68 M/mm3 (4.2-5.4); White Blood Count 9.9 K/mm3 (4.5-10.0)
[2025-09-23 07:17] LABS: Alanine Aminotransferase 41 U/L (6-35); Albumin Level 3.3 g/dL (3.5-5.1); Alkaline Phosphatase 82 U/L (38-126); Anion Gap 17 mmol/L (4-12); Aspartate Amino Transferase 27 U/L (14-36); Bilirubin,Total 0.7 mg/dL (0.2-1.3); Calcium 7.9 mg/dL (8.4-10.2); Carbon Dioxide 18 mmol/L (22-30); Chloride 99 mmol/L (98-107); Estimated CRCL calculation 5 ml/min; Estimated Glomerular Filt Rate 3; Glucose 122 mg/dL (65-110); Potassium 4.1 mmol/L (3.4-5.0); Sodium 134 mmol/L (137-145); Total Protein 6.4 g/dL (6.3-8.2)
[2025-09-23 07:20] LABS: Blood Urea Nitrogen 136 mg/dL (7-17)
[2025-09-23 08:00] VITALS: BP 153/63; PULSE 70; RESP 20; TEMP 36.8; O2SAT 95
[2025-09-23] MEDS: METOPROLOL TARTRATE 50 MG TAB PO ×2 (08:48→21:35)
[2025-09-23] MEDS: ASPIRIN 81 MG ENTERIC TABLET PO (08:48)
[2025-09-23] MEDS: SODIUM BICARBONATE TAB 650 MG TABLET PO ×2 (08:48→16:25)
[2025-09-23] MEDS: INSULIN ASPART (*BKC) 100 UNITS/ML SUB-Q ×2 (12:44→17:36)
--- NOTE | 2025-09-23 12:46 | P.PNNP_ITS ---
Progress Note: A&P Assessment and Plan (1) Acute kidney injury: Code(s): N17.9 - Acute kidney failure, unspecified Status: Acute Assessment and Plan: * ongoing deterioration noted * as noted by labs on presentation/admission (creatinine 6.9mg/dL) * multifactorial etiology: * #3 * prerenal factors (diarrhea) * diuretic use prior to admission * infection (UTI?) * other(? 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 * HOWEVER, patient has made quite clear that she is not willing to do renal replacement therapy/dialysis * follow trend of repeat labs and UOP (2) Stage 4 chronic kidney disease: Code(s): N18.4 - Chronic kidney disease, stage 4 (severe) Status: Chronic Assessment and Plan: * baseline creatine has been running ~ 2.0 - 2.7mg/dl in the last couple of years * though to be secondary to DM, HTN, vascular disease, and age-related changes based on outpatient evaluation: * fluctuations in kidney function seem to be related to issues and problems with recurrent kidney stones/nephrolithiasis as well as UTIs (3) Rhabdomyolysis: Code(s): M62.82 - Rhabdomyolysis Status: Acute Assessment and Plan: * as noted by elevated CPK levels * presumably precipitated by #4 * follow trend of CPK (4) Status post fall: Code(s): Z91.81 - History of falling Status: Acute Assessment and Plan: * as noted by admission history * mechanical in nature * PT/OT as tolerated (5) Diarrhea: Code(s): R19.7 - Diarrhea, unspecified Status: Acute Assessment and Plan: * improvement if not resolving * CT of A/P negative * stool culture with light growth of Campy. jejuni ssp. jejuni * need treatment? * imodium PRN (6) Urinary tract infection: Qualifiers: Hematuria presence: without hematuria Urinary tract infection type: s ite unspecified Qualified Code(s): N39.0 - Urinary tract infection, site not specified Code(s): N39.0 - Urinary tract infection, site not specified Status: Acute Assessment and Plan: * admission UA suggestive * follow culture results - E.coli * on antibiotics (7) Essential hypertension: Code(s): I10 - Essential (primary) hypertension Status: Acute Assessment and Plan: * reasonable control * follow trend of hemodynamics (8) Type 2 diabetes mellitus with diabetic chronic kidney disease: Qualifiers: Chronic kidney disease stage: stage 4 (severe) Diabetes mellitus retirement insulin use: with watermelon inspector use Qualified Code(s): E11.22 - Type 2 diabetes mellitus with diabetic chronic kidney disease; N18.4 - Chronic kidney disease, stage 4 (severe); Z79.4 - skilled nursing (current) use of insulin Code(s): E11.22 - Type 2 diabetes mellitus with diabetic chronic kidney disease Status: Acute Assessment and Plan: * follow accu-cheks * glycemic control per hospitalist Given patient's ongoing refusal with regard to dialysis as a treatment option, I am not sure I have much else to offer... Will continue to follow from a distance. L Subjective Date/time seen: 09/23/25 12:46 Interval history: Follow-up for acute kidney injury/acute renal failure on chronic kidney disease. Making reasonable urine output following trial dose of IV bumex on 09/21 but renal function/creatinine as well as BUN continue to worsen; major complaint when seen was right elbow pain; hospice referral made at this time. Exam 2 Narrative: General: elderly but WD/WN female in NAD Heart: normal S1 and S2; no rub Lungs: clear anteriorly Abdomen: soft, nontender, nondistended, positive bowel sounds Extremities: no cyanosis or clubbing; no edema Skin: no rash Objective Data Vital Signs Vital Signs: Vital Signs Temp Pulse Resp BP Pulse Ox O2 Del Method O2 Flow Rate 09/23/25 08:00 Room Air 09/23/25 08:00 98.2 F 70 20 153/63 H 95 09/23/25 05:23 96 Nasal Cannula 2 09/22/25 22:03 Room Air 09/22/25 22:03 74 09/22/25 21:54 97.7 F 71 20 152/72 H 96 Intake/Output Intake/Output: Intake & Output 09/20/25 09/21/25 09/22/25 09/23/25 23:59 23:59 23:59 23:59 Intake Total 2942.5 1924.2 820 1020 Output Total 250 1650 1350 700 Balance 2692.5 274.2 -530 320 Meds/Results Medications: Active Medications Generic Name Dose Route Start Last Admin Trade Name Freq PRN Reason Stop Dose Admin Acetaminophen 500 mg 09/15/25 23:55 Acetaminophen 500 Mg Tablet PO Q6H PRN Mild Pain (1-3) or Fever Aspirin 81 mg 09/16/25 09:00 09/23/25 08:48 Aspirin 81 Mg Enteric Tablet PO 81 mg DAILY MO Administration Atorvastatin Calcium 80 mg 09/15/25 23:55 09/16/25 01:08 Atorvastatin 40 Mg Tablet PO 80 mg On Hold: 09/16/25 09:30 HS MO Administration Clopidogrel Bisulfate 75 mg 09/16/25 09:00 09/19/25 09:16 Clopidogrel Bisulfate 75 Mg Tablet PO 75 mg DAILY MO Administration Dextrose 12.5 gm 09/15/25 23:51 Dextrose 50% 25 Gm/50 Ml Syringe IV PUSH PRN PRN Hypoglycemia Protocol Glucose 15 gm 09/15/25 23:51 Glucose Oral Gel 15 Gm Of Glucse In 37.5 Gm Tube PO PRN PRN Hypoglycemia Protocol Heparin Sodium (Porcine) 5,000 units 09/16/25 22:00 09/23/25 16:25 Heparin Sodium 5,000 Units/Ml Vial SUB-Q 5,000 units Q8HR MO Administration Dextrose 1,000 mls @ 100 mls/hr 09/15/25 23:51 Dextrose 5% 1,000 Ml IVPB PRN PRN Hypoglycemia Protocol Insulin Aspart 2 - 5 units 09/16/25 08:00 09/23/25 12:42 Insulin Aspart (*Bkc) 100 Units/Ml SUB-Q Not Given TIDWM MO Protocol Insulin Aspart 1 - 2 units 09/16/25 00:05 09/22/25 22:01 Insulin Aspart (*Bkc) 100 Units/Ml SUB-Q Not Given HS MO Protocol Insulin Aspart 2 units 09/17/25 17:00 09/23/25 12:44 Insulin Aspart (*Bkc) 100 Units/Ml SUB-Q 2 units TIDWM MO Administration Insulin Glargine 31 units 09/16/25 21:00 09/22/25 22:07 Insulin Glargine (*Bkc) 100 Units/Ml 0.3 units/kg (31 units) 31 units SUB-Q Administration HS MO Loperamide HCl 2 mg 09/16/25 14:06 09/18/25 08:06 Loperamide Hcl 2 Mg Capsule PO 2 mg PRN PRN Administration Diarrhea Metoprolol Tartrate 50 mg 09/15/25 23:55 09/23/25 08:48 Metoprolol Tartrate 50 Mg Tab PO 50 mg Q12HR MO Administration Pantoprazole Sodium 40 mg 09/15/25 23:55 09/22/25 22:03 Pantoprazole 40 Mg Tablet PO 40 mg HS MO Administration Sodium Bicarbonate 650 mg 09/19/25 10:55 09/23/25 16:25 Sodium Bicarbonate Tab 650 Mg Tablet PO 650 mg BID MO Administration Radiology Results: ITS Impressions Retroperitoneum Ultrasound 09/16/25 18:04 IMPRESSION: Nonobstructive right renal stone measures up to 1.4 cm. Bilateral renal cysts. Abdomen/Pelvis CT 09/16/25 20:16 IMPRESSION: No acute abnormality is noted in the abdomen and pelvis. All CT scans at this facility are performed using low dose modulation techniques as appropriate to perform exam including the following: automated exposure control; use of iterative reconstruction technique; adjustment of the mA and/or kV according to patient size (this includes techniques or standardized protocols for targeted exams where dose is matched to indication/reason for exam). Chest X-Ray 09/18/25 09:53 IMPRESSION: 1. No acute cardiopulmonary findings given portable technique. Elbow X-Ray 09/23/25 13:29 Impression: No acute fracture or malalignment. Labs Labs: Laboratory Tests 09/23/25 06:01 09/23/25 06:01 Calcium 7.9 L Phosphorus 9.3 H Total Bilirubin 0.7 AST 27 ALT 41 H Alkaline Phosphatase 82 Total Protein 6.4 Albumin 3.3 L
--- NOTE | 2025-09-23 14:33 | PM.IMPN2 ---
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) use of insulin Status: Acute (2) Morbid obesity: Code(s): E66.01 - Morbid (severe) obesity due to excess calories Status: Acute (3) ONEL (acute kidney injury): Code(s): N17.9 - Acute kidney failure, unspecified Status: Acute (4) Chronic renal failure, stage 4 (severe): Code(s): N18.4 - Chronic kidney disease, stage 4 (severe) Status: Chronic (5) Diarrhea: Code(s): R19.7 - Diarrhea, unspecified Status: Acute (6) Rhabdomyolysis: Code(s): M62.82 - Rhabdomyolysis Status: Acute Plan 75-year-old female with past medical history of obesity, CKD stage 4, coronary artery disease, insulin-dependent diabetes presenting to [facility] on 09/15/2025 after a mechanical fall. Then transferred to [facility], patient of Dr. Hdez Nephrology. She has been having diarrhea for 5 days. C diff was negative. On to have Onel I on pre-existing CKD along with severe rhabdomyolysis. upon arrival patient CK was >16,000 it has trended down to 321, today her clinical symptoms are improving however SCr and BUN rising, 13.03 and 136 respectively but her potassium remains normal 4.1. c/o pain in her right elbow, patient had fell prior to coming to the hospital, x-ray of the elbow is negative any acute injurey, patient does not want HD, want to go under hospice care. patient is working with hospice provider. 75-year-old female with past medical history of obesity, CKD stage 4, coronary artery disease, insulin-dependent diabetes presenting to [facility] on 09/15/2025 after a mechanical fall. Then transferred to [facility], patient of Dr. Hdez Nephrology. She has been having diarrhea for 5 days. C diff was negative. On to have Onel I on pre-existing CKD along with severe rhabdomyolysis. 1. Fall: Mechanical Unable to get up for extended period of time PT/OT when appropriate 2. Diarrhea: Improved C diff negative Stool culture unremarkable CT abdomen pelvis without contrast was unremarkable Brat diet Imodium p.r.n. 3. Onel I on pre-existing CKD stage IV: Rhabdomyolysis Nephrology following Worsening kidney function Improving CPK renal ultrasound shows nonobstructive kidney disease Will hold statin Continue with oral bicarb drip monitor urine output Continue with Lott ? need for dialysis, will defer to Nephrology 4. Diabetes mellitus: Blood glucose checked t.i.d. a.c. HS continue with Lantus 31 units at nighttime C/w SS+Meal time Adjust dose as needed 5. Code status: Full 6. DVT prophylaxis: Heparin subQ 7. Disposition: Pending improvement, can be transferred out of IMU Subjective Date/time seen: 09/23/25 14:33 Interval history: No acute events over night 75-year-old female with past medical history of obesity, CKD stage 4, coronary artery disease, insulin-dependent diabetes presenting to [facility] on 09/15/2025 after a mechanical fall. Then transferred to [facility], patient of Dr. Hdez Nephrology. She has been having diarrhea for 5 days. C diff was negative. On to have Onel I on pre-existing CKD along with severe rhabdomyolysis. upon arrival patient CK was >16,000 it has trended down to 321, today her clinical symptoms are improving however SCr and BUN rising, 13.03 and 136 respectively but her potassium remains normal 4.1. c/o pain in her right elbow, patient had fell prior to coming to the hospital, x-ray of the elbow is negative any acute injurey, patient does not want HD, want to go under hospice care. patient is working with hospice provider. Review of Systems Review of Systems: All systems reviewed & are unremarkable except as noted in HPI and below Exam Narrative: HEENT: PERRL, sclerae nonicteric, pharyngeal mucosa pink and intact NECK: No JVD CHEST: Clear to auscultation. Normal effort HEART: NL S1/S2, regular, no murmur ABDOMEN: BS+, soft, nontender, no mass, no bruits EXTREMITIES: No cyanosis, edema, or clubbing NEUROLOGIC: CN intact and symmetric to inspection MUSCULOSKELETAL: Tone and strength symmetric PSYCH: Alert. Oriented to person, place, and time Objective Data Vital Signs Vital Signs: Vital Signs - 24 hr 09/22/25 21:54 09/22/25 22:03 09/22/25 22:03 Temperature 36.5 C Pulse Rate 71 74 Respiratory Rate 20 Blood Pressure 152/72 H Pulse Oximetry 96 Oxygen Delivery Room Air Oxygen Flow Rate 09/23/25 05:23 09/23/25 08:00 09/23/25 08:00 Temperature 36.8 C Pulse Rate 70 Respiratory Rate 20 Blood Pressure 153/63 H Pulse Oximetry 96 95 Oxygen Delivery Nasal Cannula Room Air Oxygen Flow Rate 2 Intake/Output Intake/Output: Intake & Output 09/20/25 09/21/25 09/22/25 09/23/25 23:59 23:59 23:59 23:59 Intake Total 2942.5 1924.2 820 1020 Output Total 250 1650 1350 700 Balance 2692.5 274.2 -530 320 Meds/Results Medications: Active Medications Generic Name Dose Route Start Last Admin Trade Name Freq PRN Reason Stop Dose Admin Acetaminophen 500 mg 09/15/25 23:55 Acetaminophen 500 Mg Tablet PO Q6H PRN Mild Pain (1-3) or Fever Aspirin 81 mg 09/16/25 09:00 09/23/25 08:48 Aspirin 81 Mg Enteric Tablet PO 81 mg DAILY MO Administration Atorvastatin Calcium 80 mg 09/15/25 23:55 09/16/25 01:08 Atorvastatin 40 Mg Tablet PO 80 mg On Hold: 09/16/25 09:30 HS MO Administration Clopidogrel Bisulfate 75 mg 09/16/25 09:00 09/19/25 09:16 Clopidogrel Bisulfate 75 Mg Tablet PO 75 mg On Hold: 09/19/25 10:51 DAILY MO Administration Dextrose 12.5 gm 09/15/25 23:51 Dextrose 50% 25 Gm/50 Ml Syringe IV PUSH PRN PRN Hypoglycemia Protocol Glucose 15 gm 09/15/25 23:51 Glucose Oral Gel 15 Gm Of Glucse In 37.5 Gm Tube PO PRN PRN Hypoglycemia Protocol Heparin Sodium (Porcine) 5,000 units 09/16/25 22:00 09/23/25 06:45 Heparin Sodium 5,000 Units/Ml Vial SUB-Q 5,000 units Q8HR MO Administration Dextrose 1,000 mls @ 100 mls/hr 09/15/25 23:51 Dextrose 5% 1,000 Ml IVPB PRN PRN Hypoglycemia Protocol Insulin Aspart 2 - 5 units 09/16/25 08:00 09/23/25 12:42 Insulin Aspart (*Bkc) 100 Units/Ml SUB-Q Not Given TIDWM [facility] Protocol Insulin Aspart 1 - 2 units 09/16/25 00:05 09/22/25 22:01 Insulin Aspart (*Bkc) 100 Units/Ml SUB-Q Not Given HS [facility] Protocol Insulin Aspart 2 units 09/17/25 17:00 09/23/25 12:44 Insulin Aspart (*Bkc) 100 Units/Ml SUB-Q 2 units TIDWM MO Administration Insulin Glargine 31 units 09/16/25 21:00 09/22/25 22:07 Insulin Glargine (*Bkc) 100 Units/Ml 0.3 units/kg (31 units) 31 units SUB-Q Administration HS [facility] Loperamide HCl 2 mg 09/16/25 14:06 09/18/25 08:06 Loperamide Hcl 2 Mg Capsule PO 2 mg PRN PRN Administration Diarrhea Metoprolol Tartrate 50 mg 09/15/25 23:55 09/23/25 08:48 Metoprolol Tartrate 50 Mg Tab PO 50 mg Q12HR MO Administration Pantoprazole Sodium 40 mg 09/15/25 23:55 09/22/25 22:03 Pantoprazole 40 Mg Tablet PO 40 mg HS MO Administration Sodium Bicarbonate 650 mg 09/19/25 10:55 09/23/25 08:48 Sodium Bicarbonate Tab 650 Mg Tablet PO 650 mg BID MO Administration Radiology Results: ITS Impressions Retroperitoneum Ultrasound 09/16/25 18:04 IMPRESSION: Nonobstructive right renal stone measures up to 1.4 cm. Bilateral renal cysts. Abdomen/Pelvis CT 09/16/25 20:16 IMPRESSION: No acute abnormality is noted in the abdomen and pelvis. All CT scans at this facility are performed using low dose modulation techniques as appropriate to perform exam including the following: automated exposure control; use of iterative reconstruction technique; adjustment of the mA and/or kV according to patient size (this includes techniques or standardized protocols for targeted exams where dose is matched to indication/reason for exam). Chest X-Ray 09/18/25 09:53 IMPRESSION: 1. No acute cardiopulmonary findings given portable technique. Elbow X-Ray 09/23/25 13:29 Impression: No acute fracture or malalignment. Labs Labs: Laboratory Results - last 24 hr 09/22/25 09/22/25 09/23/25 16:55 21:37 06:01 WBC 9.9 RBC 3.68 L Hgb 10.4 L Hct 31.3 L MCV 85.1 MCH 28.3 MCHC 33.2 RDW 15.2 H Plt Count 161 MPV 11.5 H Immature Gran % (Auto) 4.2 H Neut % (Auto) 75.3 H Lymph % (Auto) 10.5 L [place] % (Auto) 5.8 Eos % (Auto) 3.5 Baso % (Auto) 0.7 Lymph # (Auto) 1.04 [place] # (Auto) 0.6 Eos # (Auto) 0.4 H Baso # (Auto) 0.1 Abs Immat Gran (auto) 0.41 H Absolute Neuts (auto) 7.4 H Absolute Nucleated RBC 0.000 Nucleated RBC % 0.0 Sodium 134 L Potassium 4.1 Chloride 99 Carbon Dioxide 18 L Anion Gap 17 H BUN 136 H* Creatinine 13.03 H Estim Creat Clear Calc 5 Estimated GFR 3 L Glucose 122 H POC Capillary Glucose 132 H 169 H Calcium 7.9 L Phosphorus 9.3 H Total Bilirubin 0.7 AST 27 ALT 41 H Alkaline Phosphatase 82 Total Protein 6.4 Albumin 3.3 L 09/23/25 09/23/25 08:10 11:56 WBC RBC Hgb Hct MCV MCH MCHC RDW Plt Count MPV Immature Gran % (Auto) Neut % (Auto) Lymph % (Auto) [place] % (Auto) Eos % (Auto) Baso % (Auto) Lymph # (Auto) [place] # (Auto) Eos # (Auto) Baso # (Auto) Abs Immat Gran (auto) Absolute Neuts (auto) Absolute Nucleated RBC Nucleated RBC % Sodium Potassium Chloride Carbon Dioxide Anion Gap BUN Creatinine Estim Creat Clear Calc Estimated GFR Glucose POC Capillary Glucose 114 H 135 H Calcium Phosphorus Total Bilirubin AST ALT Alkaline Phosphatase Total Protein Albumin Quality VTE Prophylaxis VTE prophylaxis: pharmacologic ordered
[2025-09-23 16:00] VITALS: BP 167/75; PULSE 71; RESP 18; TEMP 36.2; O2SAT 95
[2025-09-23 20:00] VITALS: PULSE 73; RESP 18; O2SAT 96
[2025-09-23 20:33] VITALS: BP 140/75; PULSE 73; RESP 18; TEMP 36.6; O2SAT 96
[2025-09-23] MEDS: INSULIN GLARGINE (*BKC) 100 UNITS/ML 31 UNITS SUB-Q (21:34)
[2025-09-23 21:35] VITALS: PULSE 73
[2025-09-23] MEDS: PANTOPRAZOLE 40 MG TABLET PO (21:35)
[2025-09-24 06:11] LABS: Hematocrit 28.7 % (37.0-47.0); Hemoglobin 9.2 g/dL (12.0-15.0); Immature Granulocyte Percent A 3.0 % (0-0.5); Lymphocytes Absolute Auto 0.94 K/mm3 (0.9-3.2); Mean Corpuscular HGB Conc 32.1 g/dl (32-36); Mean Corpuscular Hemoglobin 27.8 pg (26-34); Mean Corpuscular Volume 86.7 fl (80-100); Nucleated Red Blood Cells Absolute Auto 0.000 K/mm3 (0.0-0.012); Nucleated Red Blood Cells Perc 0.0 % (0.0-0.2); Platelet Count Result 140 k/mm3 (150-375); Red Blood Count 3.31 M/mm3 (4.2-5.4); White Blood Count 8.7 K/mm3 (4.5-10.0)
[2025-09-24 06:22] VITALS: BP 147/63; PULSE 68; RESP 20; TEMP 36.3; O2SAT 97
[2025-09-24 06:52] LABS: Alanine Aminotransferase 30 U/L (6-35); Albumin Level 3.1 g/dL (3.5-5.1); Alkaline Phosphatase 70 U/L (38-126); Anion Gap 14 mmol/L (4-12); Aspartate Amino Transferase 21 U/L (14-36); Bilirubin,Total 0.7 mg/dL (0.2-1.3); Calcium 7.5 mg/dL (8.4-10.2); Carbon Dioxide 18 mmol/L (22-30); Chloride 103 mmol/L (98-107); Estimated CRCL calculation 4 ml/min; Estimated Glomerular Filt Rate 3; Glucose 96 mg/dL (65-110); Potassium 4.0 mmol/L (3.4-5.0); Sodium 135 mmol/L (137-145); Total Protein 6.1 g/dL (6.3-8.2)
[2025-09-24 07:20] LABS: Blood Urea Nitrogen 137 mg/dL (7-17)
[2025-09-24 08:46] VITALS: PULSE 68
[2025-09-24] MEDS: SODIUM BICARBONATE TAB 650 MG TABLET PO ×2 (08:46→17:35)
[2025-09-24] MEDS: CLOPIDOGREL BISULFATE 75 MG TABLET PO (08:46)
[2025-09-24] MEDS: INSULIN ASPART (*BKC) 100 UNITS/ML SUB-Q ×3 (08:46→17:27)
[2025-09-24] MEDS: METOPROLOL TARTRATE 50 MG TAB PO ×2 (08:46→20:38)
[2025-09-24] MEDS: ASPIRIN 81 MG ENTERIC TABLET PO (08:46)
[2025-09-24 16:00] VITALS: BP 168/74; PULSE 60; RESP 20; TEMP 36.3; O2SAT 99
--- NOTE | 2025-09-24 18:19 | P.PNIM_ITS ---
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 (current) use of insulin Status: Acute (2) Morbid obesity: Code(s): E66.01 - Morbid (severe) obesity due to excess calories Status: Acute (3) ONEL (acute kidney injury): Code(s): N17.9 - Acute kidney failure, unspecified Status: Acute (4) Chronic renal failure, stage 4 (severe): Code(s): N18.4 - Chronic kidney disease, stage 4 (severe) Status: Chronic (5) Diarrhea: Code(s): R19.7 - Diarrhea, unspecified Status: Acute (6) Rhabdomyolysis: Code(s): M62.82 - Rhabdomyolysis Status: Acute Plan 75-year-old female with past medical history of obesity, CKD stage 4, coronary artery disease, insulin-dependent diabetes presenting to [facility] on 09/15/2025 after a mechanical fall. Then transferred to [facility], patient of Dr. Hdez Nephrology. She has been having diarrhea for 5 days. She developed ONEL on pre-existing CKD along with severe rhabdomyolysis after fall. upon arrival patient CK was >16,000 it has trended down to 321, today her clinical symptoms are improving however SCr and BUN rising, 13.03 and 136 respectively but her potassium remains normal 4.1. c/o pain in her right elbow, patient had fell prior to coming to the hospital, x-ray of the elbow is negative any acute injury, patient does not want HD, discussing hospice care, but was not ready to change code status. Then transferred to [facility], patient of Dr. Hdez Nephrology. She has been having diarrhea for 5 days. C diff was negative. On to have Onel I on pre-existing CKD along with severe rhabdomyolysis. Recent Fall: Low back pain Mechanical Unable to get up for extended period of time. Reports low back pain Declined x-ray low back. Able to raise leg and no numbness or tingling, TTP low back PT/OT when appropriate Diarrhea: Improved, 1 episode today C diff negative Stool culture unremarkable CT abdomen pelvis without contrast was unremarkable Brat diet Imodium p.r.n. ONEL I on pre-existing CKD stage IV: Rhabdomyolysis. Creatnine 13.49, has been trending up, Potassium normal. Bicarb stable/improved Improving CPK renal ultrasound shows nonobstructive kidney disease Nephrology following, patient not currently interested in dialysis, but discussing with son today, who reportedly does want her to start dialysis --Bicarb drip changed to po bicarb 650mg BID --Creatinine trending up but electrolytes normal and not on oxygen --Will hold statin --monitor urine output --Lott in place Diabetes mellitus: Home meds: Humulin U-500 100 units with breakfast, 55 units with lunch, 90 units with dinner Currently on Lantus 31 units hs. Blood sugars under 100 tonight. 117<145>87, 97, 92 Change lantus to 10 units daily AM, Lispro 5 units TID with meals, SSI --Continue to adjust insulin as needed Code status: Full. Discussed again with patient DVT prophylaxis: Heparin subQ Disposition: Discussing plan for hospice, which may be after discharge at some point Time Spent With Patient Time with patient: Greater than 35 minutes Subjective Date/time seen: 09/24/25 18:19 Interval history: Had a long discussion with patient and she was planning to speak with hospice today She is not currently interested in dialysis. Transportation is one barrier but even if able to fix the issues with transportation she is not interested in invasive lines for dialysis and going to sessions 3 times a week. She expressed that she primarily wishes to prioritize quality of life over quality of life. She was not currently interested in changing code status. Discussed that hospice includes stopping CRP and labs, other procedures. Will need continued discussions Review of Systems Review of Systems: All systems reviewed & are unremarkable except as noted in HPI and below Exam Narrative: HEENT: PERRL, sclerae nonicteric, pharyngeal mucosa pink and intact NECK: No JVD CHEST: Clear to auscultation. Normal effort HEART: NL S1/S2, regular, no murmur ABDOMEN: BS+, soft, nontender, no mass, no bruits EXTREMITIES: No cyanosis, edema, or clubbing NEUROLOGIC: CN intact and symmetric to inspection MUSCULOSKELETAL: Tone and strength symmetric PSYCH: Alert. Oriented to person, place, and time Objective Data Vital Signs Vital Signs: Vital Signs - 24 hr 09/23/25 20:00 09/23/25 20:33 09/23/25 21:35 Temperature 98 F Pulse Rate 73 73 73 Respiratory Rate 18 18 Blood Pressure 140/75 Pulse Oximetry 96 96 Oxygen Delivery Room Air 09/24/25 06:22 09/24/25 08:45 09/24/25 08:46 Temperature 97.4 F L Pulse Rate 68 68 Respiratory Rate 20 Blood Pressure 147/63 H Pulse Oximetry 97 Oxygen Delivery Room Air 09/24/25 16:00 Temperature 97.3 F L Pulse Rate 60 Respiratory Rate 20 Blood Pressure 168/74 H Pulse Oximetry 99 Oxygen Delivery Intake/Output Intake/Output: Intake & Output 09/21/25 09/22/25 09/23/25 09/24/25 23:59 23:59 23:59 23:59 Intake Total 1924.2 820 1260 920 Output Total 1650 2540 800 7607 Balance 274.2 -530 560 -530 Meds/Results Medications: Active Medications Generic Name Dose Route Start Last Admin Trade Name Freq PRN Reason Stop Dose Admin Acetaminophen 500 mg 09/15/25 23:55 Acetaminophen 500 Mg Tablet PO Q6H PRN Mild Pain (1-3) or Fever Aspirin 81 mg 09/16/25 09:00 09/24/25 08:46 Aspirin 81 Mg Enteric Tablet PO 81 mg DAILY MO Administration Atorvastatin Calcium 80 mg 09/15/25 23:55 09/16/25 01:08 Atorvastatin 40 Mg Tablet PO 80 mg On Hold: 09/16/25 09:30 HS MO Administration Clopidogrel Bisulfate 75 mg 09/16/25 09:00 09/24/25 08:46 Clopidogrel Bisulfate 75 Mg Tablet PO 75 mg DAILY MO Administration Dextrose 12.5 gm 09/15/25 23:51 Dextrose 50% 25 Gm/50 Ml Syringe IV PUSH PRN PRN Hypoglycemia Protocol Glucose 15 gm 09/15/25 23:51 Glucose Oral Gel 15 Gm Of Glucse In 37.5 Gm Tube PO PRN PRN Hypoglycemia Protocol Heparin Sodium (Porcine) 5,000 units 09/16/25 22:00 09/24/25 14:38 Heparin Sodium 5,000 Units/Ml Vial SUB-Q 5,000 units Q8HR MO Administration Dextrose 1,000 mls @ 100 mls/hr 09/15/25 23:51 Dextrose 5% 1,000 Ml IVPB PRN PRN Hypoglycemia Protocol Insulin Aspart 2 - 5 units 09/16/25 08:00 09/24/25 16:45 Insulin Aspart (*Bkc) 100 Units/Ml SUB-Q Not Given TIDWM [facility] Protocol Insulin Aspart 1 - 2 units 09/16/25 00:05 09/23/25 21:34 Insulin Aspart (*Bkc) 100 Units/Ml SUB-Q Not Given HS [facility] Protocol Insulin Aspart 2 units 09/17/25 17:00 09/24/25 17:27 Insulin Aspart (*Bkc) 100 Units/Ml SUB-Q 2 units TIDWM MO Administration Insulin Glargine 31 units 09/16/25 21:00 09/23/25 21:34 Insulin Glargine (*Bkc) 100 Units/Ml 0.3 units/kg (31 units) 31 units SUB-Q Administration HS [facility] Loperamide HCl 2 mg 09/16/25 14:06 09/18/25 08:06 Loperamide Hcl 2 Mg Capsule PO 2 mg PRN PRN Administration Diarrhea Metoprolol Tartrate 50 mg 09/15/25 23:55 09/24/25 08:46 Metoprolol Tartrate 50 Mg Tab PO 50 mg Q12HR MO Administration Pantoprazole Sodium 40 mg 09/15/25 23:55 09/23/25 21:35 Pantoprazole 40 Mg Tablet PO 40 mg HS MO Administration Sodium Bicarbonate 650 mg 09/19/25 10:55 09/24/25 17:35 Sodium Bicarbonate Tab 650 Mg Tablet PO 650 mg BID MO Administration Radiology Results: ITS Impressions Retroperitoneum Ultrasound 09/16/25 18:04 IMPRESSION: Nonobstructive right renal stone measures up to 1.4 cm. Bilateral renal cysts. Abdomen/Pelvis CT 09/16/25 20:16 IMPRESSION: No acute abnormality is noted in the abdomen and pelvis. All CT scans at this facility are performed using low dose modulation techniques as appropriate to perform exam including the following: automated exposure control; use of iterative reconstruction technique; adjustment of the mA and/or kV according to patient size (this includes techniques or standardized protocols for targeted exams where dose is matched to indication/reason for exam). Chest X-Ray 09/18/25 09:53 IMPRESSION: 1. No acute cardiopulmonary findings given portable technique. Elbow X-Ray 09/23/25 13:29 Impression: No acute fracture or malalignment. Labs Labs: Laboratory Results - last 24 hr 09/23/25 09/24/25 09/24/25 19:39 05:44 07:46 WBC 8.7 RBC 3.31 L Hgb 9.2 L Hct 28.7 L MCV 86.7 MCH 27.8 MCHC 32.1 RDW 15.5 H Plt Count 140 L MPV 11.3 H Immature Gran % (Auto) 3.0 H Neut % (Auto) 76.9 H Lymph % (Auto) 10.8 L [place] % (Auto) 5.4 Eos % (Auto) 3.2 Baso % (Auto) 0.7 Lymph # (Auto) 0.94 [place] # (Auto) 0.5 Eos # (Auto) 0.3 Baso # (Auto) 0.1 Abs Immat Gran (auto) 0.26 H Absolute Neuts (auto) 6.7 Absolute Nucleated RBC 0.000 Nucleated RBC % 0.0 Sodium 135 L Potassium 4.0 Chloride 103 Carbon Dioxide 18 L Anion Gap 14 H BUN 137 H* Creatinine 13.49 H Estim Creat Clear Calc 4 Estimated GFR 3 L Glucose 96 POC Capillary Glucose 145 H 87 Calcium 7.5 L Phosphorus 10.1 H Total Bilirubin 0.7 AST 21 ALT 30 Alkaline Phosphatase 70 Total Protein 6.1 L Albumin 3.1 L 09/24/25 09/24/25 11:35 16:26 WBC RBC Hgb Hct MCV MCH MCHC RDW Plt Count MPV Immature Gran % (Auto) Neut % (Auto) Lymph % (Auto) [place] % (Auto) Eos % (Auto) Baso % (Auto) Lymph # (Auto) [place] # (Auto) Eos # (Auto) Baso # (Auto) Abs Immat Gran (auto) Absolute Neuts (auto) Absolute Nucleated RBC Nucleated RBC % Sodium Potassium Chloride Carbon Dioxide Anion Gap BUN Creatinine Estim Creat Clear Calc Estimated GFR Glucose POC Capillary Glucose 97 92 Calcium Phosphorus Total Bilirubin AST ALT Alkaline Phosphatase Total Protein Albumin Quality VTE Prophylaxis VTE prophylaxis: pharmacologic ordered Hospitalist [facility] Advance Care Plan I have confirmed that the patient's Advanced Care Plan is present, code status is documented, or surrogate decision maker is listed in patient medical record.: Yes Medication Reconciliation I have utilized all available resources to obtain, update and review the patients current medications (includes all prescriptions, OTC, herbals, cannabis, and nutritional supplements).: Yes
[2025-09-24 19:51] VITALS: BP 147/75; PULSE 69; RESP 18; TEMP 36.4; O2SAT 96
[2025-09-24 20:38] VITALS: PULSE 69
[2025-09-24] MEDS: PANTOPRAZOLE 40 MG TABLET PO (20:38)
[2025-09-25] VITALS (7 sets, daily range): BP systolic 136–146; BP diastolic 54–76; PULSE 66–73; RESP 17–21; TEMP 36.2–36.8; O2SAT 95–100
[2025-09-25 08:42] LABS: Hematocrit 30.8 % (37.0-47.0); Hemoglobin 9.9 g/dL (12.0-15.0); Immature Granulocyte Percent A 1.4 % (0-0.5); Lymphocytes Absolute Auto 0.80 K/mm3 (0.9-3.2); Mean Corpuscular HGB Conc 32.1 g/dl (32-36); Mean Corpuscular Hemoglobin 27.8 pg (26-34); Mean Corpuscular Volume 86.5 fl (80-100); Nucleated Red Blood Cells Absolute Auto 0.000 K/mm3 (0.0-0.012); Nucleated Red Blood Cells Perc 0.0 % (0.0-0.2); Platelet Count Result 148 k/mm3 (150-375); Red Blood Count 3.56 M/mm3 (4.2-5.4); White Blood Count 11.0 K/mm3 (4.5-10.0)
[2025-09-25] MEDS: SODIUM BICARBONATE TAB 650 MG TABLET PO ×2 (08:52→16:59)
[2025-09-25] MEDS: METOPROLOL TARTRATE 50 MG TAB PO ×2 (08:52→21:06)
[2025-09-25] MEDS: ASPIRIN 81 MG ENTERIC TABLET PO (08:52)
[2025-09-25] MEDS: CLOPIDOGREL BISULFATE 75 MG TABLET PO (08:52)
[2025-09-25 09:13] LABS: Alanine Aminotransferase 30 U/L (6-35); Albumin Level 3.5 g/dL (3.5-5.1); Alkaline Phosphatase 73 U/L (38-126); Anion Gap 17 mmol/L (4-12); Aspartate Amino Transferase 21 U/L (14-36); Bilirubin,Total 0.8 mg/dL (0.2-1.3); Calcium 7.6 mg/dL (8.4-10.2); Carbon Dioxide 19 mmol/L (22-30); Chloride 103 mmol/L (98-107); Estimated CRCL calculation 4 ml/min; Estimated Glomerular Filt Rate 3; Glucose 101 mg/dL (65-110); Potassium 4.4 mmol/L (3.4-5.0); Sodium 139 mmol/L (137-145); Total Protein 6.8 g/dL (6.3-8.2)
[2025-09-25] MEDS: INSULIN ASPART (*BKC) 100 UNITS/ML SUB-Q ×2 (09:13→12:07)
[2025-09-25 09:14] LABS: Blood Urea Nitrogen 136 mg/dL (7-17)
--- NOTE | 2025-09-25 10:32 | PM.IMPN2 ---
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 of insulin Status: Acute (2) Morbid obesity: Code(s): E66.01 - Morbid (severe) obesity due to excess calories Status: Acute (3) ONEL (acute kidney injury): Code(s): N17.9 - Acute kidney failure, unspecified Status: Acute (4) Chronic renal failure, stage 4 (severe): Code(s): N18.4 - Chronic kidney disease, stage 4 (severe) Status: Chronic (5) Diarrhea: Code(s): R19.7 - Diarrhea, unspecified Status: Acute (6) Rhabdomyolysis: Code(s): M62.82 - Rhabdomyolysis Status: Acute Plan 75-year-old female with past medical history of obesity, CKD stage 4, coronary artery disease, insulin-dependent diabetes presenting to [facility] on 09/15/2025 after a mechanical fall. Then transferred to [facility], patient of Dr. Hdez Nephrology. She has been having diarrhea for 5 days. She developed ONEL on pre-existing CKD along with severe rhabdomyolysis after fall. upon arrival patient CK was >16,000 it has trended down to 321, today her clinical symptoms are improving however SCr and BUN rising, 13.03 and 136 respectively but her potassium remains normal 4.1. c/o pain in her right elbow, patient had fell prior to coming to the hospital, x-ray of the elbow is negative any acute injury, patient does not want HD, discussing hospice care, but was not ready to change code status until discussing with her son again. Then transferred to [facility], patient of Dr. Hdez Nephrology. She has been having diarrhea for 5 days prior to admission. 3 BM's yesterday. C diff was negative. On to have Onel I on pre-existing CKD along with severe rhabdomyolysis. Recent Fall: Low back pain Mechanical Unable to get up for extended period of time. Reports low back pain controlled with oxycodone intermittently. Does not wish to try acetaminophen Declined x-ray low back. Able to raise leg and no numbness or tingling, TTP low back PT/OT when appropriate Diarrhea: Improving overall but monitoring C diff negative Stool culture unremarkable CT abdomen pelvis without contrast was unremarkable Brat diet Imodium p.r.n. ONEL I on pre-existing CKD stage IV: Rhabdomyolysis. Creatnine 13.49, has been trending up, Potassium normal. Bicarb stable/improved Improving CPK renal ultrasound shows nonobstructive kidney disease Nephrology following, patient not currently interested in dialysis, but discussing with son today, who reportedly does want her to start dialysis --Bicarb drip changed to po bicarb 650mg BID --Creatinine stable, slightly improved. Potassium normal, phosphorus trending up, not on oxygen --Will hold statin --monitor urine output --Lott in place Diabetes mellitus: Home meds: Humulin U-500 100 units with breakfast, 55 units with lunch, 90 units with dinner Currently on Lantus 31 units hs. Blood sugars under 100 tonight. 117<145>87, 97, 92 Changed lantus to 10 units daily AM, Lispro 5 units TID with meals, SSI. Blood sugars well controlled --Continue to adjust insulin as needed Code status: Full. Discussed with patient and she would prefer DNR/DNI but would like to discuss with her son DVT prophylaxis: Heparin subq Disposition: Discussing plan for hospice, which may be after discharge at some point Subjective Date/time seen: 09/25/25 16:15 Interval history: Had 2L off yesterday, voided 1200 today. Minimal improvement in creatinine overnight. Not short of breath currently. Renal following Patient is not interested in dialysis under any circumstances. She reports that she wants quality of life over quantity of life, even if that means 4 days. She clarified that she is not interested in CPR or intubation and would prefer to change her code status but that her son would not likely agree and she would like to have a conversation with him about it. She is interested in going home, but discussed that given degree of renal failure would be better to confirm if she is likely to have renal recovery or discharge with plans for hospice. She understood yesterday that she needed to have dialysis prior to allowing her to sign up with hospice and she is not interested in dialysis as noted. Review of Systems Review of Systems: All systems reviewed & are unremarkable except as noted in HPI and below Exam Narrative: General - Awake and alert. No acute distress Eyes - PERRLA, EOM intact ENT - No thrush, No erythema Neck - No noticeable or palpable swelling Lymph Nodes - No lymphadenopathy Cardiovascular - RRR no m/r/g, no JVD Lungs: Decreased in the bases, No wheezing, no use of accessory muscles Skin - Skin warm and dry, no wounds or rashes Abdomen - Normal bowel sounds, abdomen soft and nontender Extremities - No edema, cyanosis or clubbing Musculoskeletal - 5/5 strength, normal range of motion, no swollen or erythematous joints. Neurological ? Alert and oriented x 3, CN 2-12 grossly intact. Psych: Normal mood and affect Objective Data Vital Signs Vital Signs: Vital Signs - 24 hr 09/24/25 16:00 09/24/25 19:51 09/24/25 20:38 Temperature 97.3 F L 97.6 F Pulse Rate 60 69 69 Respiratory Rate 20 18 Blood Pressure 168/74 H 147/75 H Pulse Oximetry 99 96 Oxygen Delivery Oxygen Flow Rate 09/25/25 03:48 09/25/25 04:00 09/25/25 05:37 Temperature 97.7 F Pulse Rate 67 68 Respiratory Rate 18 18 Blood Pressure 140/54 L 145/63 H Pulse Oximetry 95 95 98 Oxygen Delivery Nasal Cannula Oxygen Flow Rate 2 09/25/25 08:00 09/25/25 08:52 Temperature Pulse Rate 70 Respiratory Rate Blood Pressure Pulse Oximetry Oxygen Delivery Room Air Oxygen Flow Rate Intake/Output Intake/Output: Intake & Output 09/22/25 09/23/25 09/24/25 09/25/25 23:59 23:59 23:59 23:59 Intake Total 820 1260 1160 390 Output Total 1026 564 5983 1200 Balance -530 560 -890 -810 Meds/Results Medications: Active Medications Generic Name Dose Route Start Last Admin Trade Name Freq PRN Reason Stop Dose Admin Acetaminophen 500 mg 09/15/25 23:55 Acetaminophen 500 Mg Tablet PO Q6H PRN Mild Pain (1-3) or Fever Aspirin 81 mg 09/16/25 09:00 09/25/25 08:52 Aspirin 81 Mg Enteric Tablet PO 81 mg DAILY MO Administration Atorvastatin Calcium 80 mg 09/15/25 23:55 09/16/25 01:08 Atorvastatin 40 Mg Tablet PO 80 mg On Hold: 09/16/25 09:30 HS MO Administration Clopidogrel Bisulfate 75 mg 09/16/25 09:00 09/25/25 08:52 Clopidogrel Bisulfate 75 Mg Tablet PO 75 mg DAILY MO Administration Dextrose 12.5 gm 09/15/25 23:51 Dextrose 50% 25 Gm/50 Ml Syringe IV PUSH PRN PRN Hypoglycemia Protocol Glucose 15 gm 09/15/25 23:51 Glucose Oral Gel 15 Gm Of Glucse In 37.5 Gm Tube PO PRN PRN Hypoglycemia Protocol Heparin Sodium (Porcine) 5,000 units 09/16/25 22:00 09/25/25 05:40 Heparin Sodium 5,000 Units/Ml Vial SUB-Q 5,000 units Q8HR MO Administration Dextrose 1,000 mls @ 100 mls/hr 09/15/25 23:51 Dextrose 5% 1,000 Ml IVPB PRN PRN Hypoglycemia Protocol Insulin Aspart 2 - 5 units 09/16/25 08:00 09/25/25 09:13 Insulin Aspart (*Bkc) 100 Units/Ml SUB-Q Not Given TIDWM MO Protocol Insulin Aspart 1 - 2 units 09/16/25 00:05 09/24/25 20:41 Insulin Aspart (*Bkc) 100 Units/Ml SUB-Q Not Given HS MO Protocol Insulin Aspart 5 units 09/25/25 08:00 09/25/25 09:13 Insulin Aspart (*Bkc) 100 Units/Ml SUB-Q 5 units TIDWM MO Administration Insulin Glargine 10 units 09/25/25 09:00 09/25/25 09:12 Insulin Glargine (*Bkc) 100 Units/Ml SUB-Q 10 units DAILY MO Administration Loperamide HCl 2 mg 09/16/25 14:06 09/18/25 08:06 Loperamide Hcl 2 Mg Capsule PO 2 mg PRN PRN Administration Diarrhea Metoprolol Tartrate 50 mg 09/15/25 23:55 09/25/25 08:52 Metoprolol Tartrate 50 Mg Tab PO 50 mg Q12HR MO Administration Oxycodone HCl 5 mg 09/24/25 18:32 Oxycodone Hcl (*Crx) 5 Mg Tab Ir PO Q6H PRN moderate to severe pain Pantoprazole Sodium 40 mg 09/15/25 23:55 09/24/25 20:38 Pantoprazole 40 Mg Tablet PO 40 mg HS MO Administration Sodium Bicarbonate 650 mg 09/19/25 10:55 09/25/25 08:52 Sodium Bicarbonate Tab 650 Mg Tablet PO 650 mg BID MO Administration Radiology Results: ITS Impressions Retroperitoneum Ultrasound 09/16/25 18:04 IMPRESSION: Nonobstructive right renal stone measures up to 1.4 cm. Bilateral renal cysts. Abdomen/Pelvis CT 09/16/25 20:16 IMPRESSION: No acute abnormality is noted in the abdomen and pelvis. All CT scans at this facility are performed using low dose modulation techniques as appropriate to perform exam including the following: automated exposure control; use of iterative reconstruction technique; adjustment of the mA and/or kV according to patient size (this includes techniques or standardized protocols for targeted exams where dose is matched to indication/reason for exam). Chest X-Ray 09/18/25 09:53 IMPRESSION: 1. No acute cardiopulmonary findings given portable technique. Elbow X-Ray 09/23/25 13:29 Impression: No acute fracture or malalignment. Labs Labs: Laboratory Results - last 24 hr 09/24/25 09/24/25 09/24/25 11:35 16:26 19:31 WBC RBC Hgb Hct MCV MCH MCHC RDW Plt Count MPV Immature Gran % (Auto) Neut % (Auto) Lymph % (Auto) [place] % (Auto) Eos % (Auto) Baso % (Auto) Lymph # (Auto) [place] # (Auto) Eos # (Auto) Baso # (Auto) Abs Immat Gran (auto) Absolute Neuts (auto) Absolute Nucleated RBC Nucleated RBC % Sodium Potassium Chloride Carbon Dioxide Anion Gap BUN Creatinine Estim Creat Clear Calc Estimated GFR Glucose POC Capillary Glucose 97 92 114 H Calcium Phosphorus Total Bilirubin AST ALT Alkaline Phosphatase Total Protein Albumin 09/25/25 09/25/25 07:54 08:19 WBC 11.0 H RBC 3.56 L Hgb 9.9 L Hct 30.8 L MCV 86.5 MCH 27.8 MCHC 32.1 RDW 15.6 H Plt Count 148 L MPV 12.0 H Immature Gran % (Auto) 1.4 H Neut % (Auto) 84.7 H Lymph % (Auto) 7.3 L [place] % (Auto) 3.8 Eos % (Auto) 2.1 Baso % (Auto) 0.7 Lymph # (Auto) 0.80 L [place] # (Auto) 0.4 Eos # (Auto) 0.2 Baso # (Auto) 0.1 Abs Immat Gran (auto) 0.15 H Absolute Neuts (auto) 9.3 H Absolute Nucleated RBC 0.000 Nucleated RBC % 0.0 Sodium 139 Potassium 4.4 Chloride 103 Carbon Dioxide 19 L Anion Gap 17 H BUN 136 H* Creatinine 13.45 H Estim Creat Clear Calc 4 Estimated GFR 3 L Glucose 101 POC Capillary Glucose 90 Calcium 7.6 L Phosphorus 10.9 H Total Bilirubin 0.8 AST 21 ALT 30 Alkaline Phosphatase 73 Total Protein 6.8 Albumin 3.5 Quality VTE Prophylaxis VTE prophylaxis: pharmacologic ordered Hospitalist [facility] Advance Care Plan I have confirmed that the patient's Advanced Care Plan is present, code status is documented, or surrogate decision maker is listed in patient medical record.: Yes Medication Reconciliation I have utilized all available resources to obtain, update and review the patients current medications (includes all prescriptions, OTC, herbals, cannabis, and nutritional supplements).: Yes
--- NOTE | 2025-09-25 12:12 | P.PNNP_ITS ---
Progress Note: A&P Assessment and Plan (1) Acute kidney injury: Code(s): N17.9 - Acute kidney failure, unspecified Status: Acute Assessment and Plan: * ongoing deterioration noted * relative stability noted in the last 24 hours * continue to make good urine output * possible renal recovery??? * as noted by labs on presentation/admission (creatinine 6.9mg/dL) * multifactorial etiology: * #3 * prerenal factors (diarrhea) * diuretic use prior to admission * infection (UTI?) * other(? 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 * HOWEVER, patient has made quite clear that she is not willing to do renal replacement therapy/dialysis * follow trend of repeat labs and UOP (2) Stage 4 chronic kidney disease: Code(s): N18.4 - Chronic kidney disease, stage 4 (severe) Status: Chronic Assessment and Plan: * baseline creatine has been running ~ 2.0 - 2.7mg/dl in the last couple of years * though to be secondary to DM, HTN, vascular disease, and age-related changes based on outpatient evaluation: * fluctuations in kidney function seem to be related to issues and problems with recurrent kidney stones/nephrolithiasis as well as UTIs (3) Rhabdomyolysis: Code(s): M62.82 - Rhabdomyolysis Status: Acute Assessment and Plan: * as noted by elevated CPK levels * presumably precipitated by #4 * follow trend of CPK - now normalized (4) Status post fall: Code(s): Z91.81 - History of falling Status: Acute Assessment and Plan: * as noted by admission history * mechanical in nature * PT/OT as tolerated (5) Diarrhea: Code(s): R19.7 - Diarrhea, unspecified Status: Acute Assessment and Plan: * improvement if not resolving * CT of A/P negative * stool culture with light growth of Campy. jejuni ssp. jejuni * imodium PRN (6) Urinary tract infection: Qualifiers: Hematuria presence: without hematuria Urinary tract infection type: s ite unspecified Qualified Code(s): N39.0 - Urinary tract infection, site not specified Code(s): N39.0 - Urinary tract infection, site not specified Status: Acute Assessment and Plan: * admission UA suggestive * follow culture results - E.coli * completed course of antibiotics (7) Essential hypertension: Code(s): I10 - Essential (primary) hypertension Status: Acute Assessment and Plan: * reasonable control * follow trend of hemodynamics (8) Type 2 diabetes mellitus with diabetic chronic kidney disease: Qualifiers: Chronic kidney disease stage: stage 4 (severe) Diabetes mellitus halfway insulin use: with owner oral surgeon use Qualified Code(s): E11.22 - Type 2 diabetes mellitus with diabetic chronic kidney disease; N18.4 - Chronic kidney disease, stage 4 (severe); 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 Will continue to follow intermittently. L Subjective Date/time seen: 09/25/25 12:12 Interval history: Follow-up for acute kidney injury/acute renal failure on chronic kidney disease. Since I last saw her, she and her son met with hospice but decided against it; renal function/creatinine along with BUN appears to have stabilized in the last 24 hours and continues to make good urine output without the use of diuretic therapy; tells me that she wants to go home (but based on therapy notes, unclear if that is a feasible option) Exam 2 Narrative: General: elderly but WD/WN female in NAD Heart: normal S1 and S2; no rub Lungs: clear anteriorly Abdomen: soft, nontender, nondistended, positive bowel sounds Extremities: no cyanosis or clubbing; no edema Skin: no nodules Objective Data Vital Signs Vital Signs: Vital Signs Temp Pulse Resp BP Pulse Ox O2 Del Method O2 Flow Rate 09/25/25 12:00 97.1 F L 66 21 H 136/76 100 09/25/25 08:52 70 09/25/25 08:00 Room Air 09/25/25 05:37 97.7 F 68 18 145/63 H 98 09/25/25 04:00 95 Nasal Cannula 2 09/25/25 03:48 67 18 140/54 L 95 09/24/25 20:38 69 09/24/25 19:51 97.6 F 69 18 147/75 H 96 09/24/25 16:00 97.3 F L 60 20 168/74 H 99 Intake/Output Intake/Output: Intake & Output 09/22/25 09/23/25 09/24/25 09/25/25 23:59 23:59 23:59 23:59 Intake Total 820 1260 1160 590 Output Total 6040 333 9672 1200 Balance -530 560 -890 -610 Meds/Results Medications: Active Medications Generic Name Dose Route Start Last Admin Trade Name Freq PRN Reason Stop Dose Admin Acetaminophen 500 mg 09/15/25 23:55 Acetaminophen 500 Mg Tablet PO Q6H PRN Mild Pain (1-3) or Fever Aspirin 81 mg 09/16/25 09:00 09/25/25 08:52 Aspirin 81 Mg Enteric Tablet PO 81 mg DAILY MO Administration Atorvastatin Calcium 80 mg 09/15/25 23:55 09/16/25 01:08 Atorvastatin 40 Mg Tablet PO 80 mg On Hold: 09/16/25 09:30 HS MO Administration Clopidogrel Bisulfate 75 mg 09/16/25 09:00 09/25/25 08:52 Clopidogrel Bisulfate 75 Mg Tablet PO 75 mg DAILY MO Administration Dextrose 12.5 gm 09/15/25 23:51 Dextrose 50% 25 Gm/50 Ml Syringe IV PUSH PRN PRN Hypoglycemia Protocol Glucose 15 gm 09/15/25 23:51 Glucose Oral Gel 15 Gm Of Glucse In 37.5 Gm Tube PO PRN PRN Hypoglycemia Protocol Heparin Sodium (Porcine) 5,000 units 09/16/25 22:00 09/25/25 14:29 Heparin Sodium 5,000 Units/Ml Vial SUB-Q 5,000 units Q8HR MO Administration Dextrose 1,000 mls @ 100 mls/hr 09/15/25 23:51 Dextrose 5% 1,000 Ml IVPB PRN PRN Hypoglycemia Protocol Insulin Aspart 2 - 5 units 09/16/25 08:00 09/25/25 12:07 Insulin Aspart (*Bkc) 100 Units/Ml SUB-Q Not Given TIDWM [facility] Protocol Insulin Aspart 1 - 2 units 09/16/25 00:05 09/24/25 20:41 Insulin Aspart (*Bkc) 100 Units/Ml SUB-Q Not Given HS MO Protocol Insulin Aspart 5 units 09/25/25 08:00 09/25/25 12:07 Insulin Aspart (*Bkc) 100 Units/Ml SUB-Q 5 units TIDWM MO Administration Insulin Glargine 10 units 09/25/25 09:00 09/25/25 09:00 Insulin Glargine (*Bkc) 100 Units/Ml SUB-Q Not Given DAILY MO Loperamide HCl 2 mg 09/16/25 14:06 09/18/25 08:06 Loperamide Hcl 2 Mg Capsule PO 2 mg PRN PRN Administration Diarrhea Metoprolol Tartrate 50 mg 09/15/25 23:55 09/25/25 08:52 Metoprolol Tartrate 50 Mg Tab PO 50 mg Q12HR MO Administration Oxycodone HCl 5 mg 09/24/25 18:32 Oxycodone Hcl (*Crx) 5 Mg Tab Ir PO Q6H PRN moderate to severe pain Pantoprazole Sodium 40 mg 09/15/25 23:55 09/24/25 20:38 Pantoprazole 40 Mg Tablet PO 40 mg HS MO Administration Sodium Bicarbonate 650 mg 09/19/25 10:55 09/25/25 08:52 Sodium Bicarbonate Tab 650 Mg Tablet PO 650 mg BID MO Administration Radiology Results: ITS Impressions Retroperitoneum Ultrasound 09/16/25 18:04 IMPRESSION: Nonobstructive right renal stone measures up to 1.4 cm. Bilateral renal cysts. Abdomen/Pelvis CT 09/16/25 20:16 IMPRESSION: No acute abnormality is noted in the abdomen and pelvis. All CT scans at this facility are performed using low dose modulation techniques as appropriate to perform exam including the following: automated exposure control; use of iterative reconstruction technique; adjustment of the mA and/or kV according to patient size (this includes techniques or standardized protocols for targeted exams where dose is matched to indication/reason for exam). Chest X-Ray 09/18/25 09:53 IMPRESSION: 1. No acute cardiopulmonary findings given portable technique. Elbow X-Ray 09/23/25 13:29 Impression: No acute fracture or malalignment. Labs Labs: Laboratory Tests 09/25/25 08:19 09/25/25 08:19 Calcium 7.6 L Phosphorus 10.9 H Total Bilirubin 0.8 AST 21 ALT 30 Alkaline Phosphatase 73 Total Protein 6.8 Albumin 3.5
[2025-09-25 14:09] LABS: Lactoferrin, Fecal, Quant. 68.57 ug/mL(g) (0.00-7.24)
[2025-09-25] MEDS: PANTOPRAZOLE 40 MG TABLET PO (21:06)
[2025-09-26] VITALS (7 sets, daily range): BP systolic 140–161; BP diastolic 63–78; PULSE 70–81; RESP 18–20; TEMP 36.4–36.7; O2SAT 88–97
[2025-09-26 07:35] LABS: Albumin Level 3.5 g/dL (3.5-5.1); Anion Gap 18 mmol/L (4-12); Calcium 7.3 mg/dL (8.4-10.2); Carbon Dioxide 18 mmol/L (22-30); Chloride 104 mmol/L (98-107); Estimated CRCL calculation 4 ml/min; Estimated Glomerular Filt Rate 3; Glucose 92 mg/dL (65-110); Potassium 4.3 mmol/L (3.4-5.0); Sodium 140 mmol/L (137-145)
[2025-09-26 07:35] LABS: Hematocrit 29.8 % (37.0-47.0); Hemoglobin 9.7 g/dL (12.0-15.0); Immature Granulocyte Percent A 0.9 % (0-0.5); Lymphocytes Absolute Auto 0.72 K/mm3 (0.9-3.2); Mean Corpuscular HGB Conc 32.6 g/dl (32-36); Mean Corpuscular Hemoglobin 27.9 pg (26-34); Mean Corpuscular Volume 85.6 fl (80-100); Nucleated Red Blood Cells Absolute Auto 0.000 K/mm3 (0.0-0.012); Nucleated Red Blood Cells Perc 0.0 % (0.0-0.2); Platelet Count Result 149 k/mm3 (150-375); Red Blood Count 3.48 M/mm3 (4.2-5.4); White Blood Count 11.9 K/mm3 (4.5-10.0)
[2025-09-26 07:46] LABS: Blood Urea Nitrogen 131 mg/dL (7-17)
[2025-09-26] MEDS: CLOPIDOGREL BISULFATE 75 MG TABLET PO (08:30)
[2025-09-26] MEDS: METOPROLOL TARTRATE 50 MG TAB PO ×2 (08:30→21:14)
[2025-09-26] MEDS: ASPIRIN 81 MG ENTERIC TABLET PO (08:30)
[2025-09-26] MEDS: SODIUM BICARBONATE TAB 650 MG TABLET PO ×2 (08:31→16:51)
[2025-09-26] MEDS: oxyCODONE HCL (*CRX) 5 MG TAB IR PO (08:48)
--- NOTE | 2025-09-26 09:00 | PCOTNOTE ---
Attempted to see pt for OT treatment. Pt is reporting 5/10 pain in lower back and BLE knees with pt stating she just took pain meds. Pt was educated on benefits/purpose of participation in therapeutic tasks including strengthening and/or self care task, however, pt continued to declined to participate. Will attempt per poc duration/frequency tomorrow.
--- NOTE | 2025-09-26 11:35 | PM.IMPN2 ---
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) use of insulin Status: Acute (2) Morbid obesity: Code(s): E66.01 - Morbid (severe) obesity due to excess calories Status: Acute (3) ONEL (acute kidney injury): Code(s): N17.9 - Acute kidney failure, unspecified Status: Acute (4) Chronic renal failure, stage 4 (severe): Code(s): N18.4 - Chronic kidney disease, stage 4 (severe) Status: Chronic (5) Diarrhea: Code(s): R19.7 - Diarrhea, unspecified Status: Acute (6) Rhabdomyolysis: Code(s): M62.82 - Rhabdomyolysis Status: Acute Plan 75-year-old female with past medical history of obesity, CKD stage 4, coronary artery disease, insulin-dependent diabetes presenting to [facility] on 09/15/2025 after a mechanical fall. Then transferred to [facility], patient of Dr. Hdez Nephrology. She has been having diarrhea for 5 days. She developed ONEL on pre-existing CKD along with severe rhabdomyolysis after fall. upon arrival patient CK was >16,000 it has trended down to 321, today her clinical symptoms are improving however SCr and BUN rising, 13.03 and 136 respectively but her potassium remains normal 4.1. c/o pain in her right elbow, patient had fell prior to coming to the hospital, x-ray of the elbow is negative any acute injury, patient does not want HD, discussing hospice care, but was not ready to change code status until discussing with her son again. Then transferred to [facility], patient of Dr. Hdez Nephrology. She has been having diarrhea for 5 days prior to admission. 3 BM's yesterday. C diff was negative. On to have Onel I on pre-existing CKD along with severe rhabdomyolysis. Recent Fall: Low back pain Mechanical Unable to get up for extended period of time. Reports low back pain controlled with oxycodone intermittently. Does not wish to try acetaminophen Declined x-ray low back. Able to raise leg and no numbness or tingling, TTP low back PT/OT when appropriate Diarrhea: Improving overall but monitoring C diff negative Stool culture unremarkable CT abdomen pelvis without contrast was unremarkable Brat diet Imodium p.r.n. ONEL I on pre-existing CKD stage IV: Rhabdomyolysis. Creatnine 13.49, has been trending up, Potassium normal. Bicarb stable/improved Improving CPK renal ultrasound shows nonobstructive kidney disease Nephrology following, patient not currently interested in dialysis, but discussing with son today, who reportedly does want her to start dialysis --Bicarb drip changed to po bicarb 650mg BID --Creatinine stable, slightly improved. Potassium normal, phosphorus trending up, not on oxygen --Will hold statin --monitor urine output --Lott in place Diabetes mellitus: Home meds: Humulin U-500 100 units with breakfast, 55 units with lunch, 90 units with dinner Currently on Lantus 31 units hs. Blood sugars under 100 tonight. 117<145>87, 97, 92 Changed lantus to 10 units daily AM, Lispro 5 units TID with meals, SSI. Blood sugars well controlled --Continue to adjust insulin as needed Code status: Full. Discussed with patient and she would prefer DNR/DNI but would like to discuss with her son DVT prophylaxis: Heparin subq Disposition: Discussing plan for hospice, which may be after discharge at some point Subjective Date/time seen: 09/26/25 11:35 Interval history: Not short of breath currently. Renal continuing to follow. Patient continues to not be interested in dialysis under any circumstance. She was initially under the impression that she could not qualify for hospice unless she was on dialysis, and thus did not want hospice for that reason. I reassured her that she would infact qualify for hospice while not being on dialysis and thus was agreeable to be discharged on hospice. We are currently working with CC regarding contacting her son and re-confirming this information and will decide on hospice either today or tomorrow. She is otherwise stable at this time. Kidney function continuing to worsen and discussed with Nephro that given refusal for dialysis, she can otherwise be discharged at this time. Plan to discharge to either SNF or hospice pending conversation with son with care coordination. Review of Systems Review of Systems: All systems reviewed & are unremarkable except as noted in HPI and below Exam Narrative: General - Awake and alert. No acute distress Eyes - PERRLA, EOM intact ENT - No thrush, No erythema Neck - No noticeable or palpable swelling Lymph Nodes - No lymphadenopathy Cardiovascular - RRR no m/r/g, no JVD Lungs: Decreased in the bases, No wheezing, no use of accessory muscles Skin - Skin warm and dry, no wounds or rashes Abdomen - Normal bowel sounds, abdomen soft and nontender Extremities - No edema, cyanosis or clubbing Musculoskeletal - 5/5 strength, normal range of motion, no swollen or erythematous joints. Neurological ? Alert and oriented x 3, CN 2-12 grossly intact. Psych: Normal mood and affect Const: General: comfortable and no acute distress Other: A&O x3, dry mucous membranes Eyes: Pupils: Equal, round and reactive pupils present Neck: Neck: supple Resp: Effort & Inspection: normal respiratory effort Auscultation: clear to auscultation bilaterally Cardio: Rate: regular rate Rhythm: regular rhythm GI: Inspection: non-distended : General: Yes bladder normal to palpation Bimanual exam- vagina & uterus: bladder normal to palpation Neuro: Cranial nerves: Yes Equal, round and reactive pupils present Other: Globally weak, symmetric. Poor skin turgor Extrem: General: no edema Objective Data Vital Signs Vital Signs: Vital Signs - 24 hr 09/25/25 14:00 09/25/25 19:54 09/25/25 20:00 Temperature 97.1 F L 98.3 F Pulse Rate 66 73 Respiratory Rate 21 H 17 Blood Pressure 136/76 146/66 H Pulse Oximetry 100 96 Oxygen Delivery Room Air 09/25/25 21:06 09/26/25 05:43 09/26/25 08:30 Temperature 98.1 F Pulse Rate 73 78 81 Respiratory Rate 19 Blood Pressure 161/78 H Pulse Oximetry 92 Oxygen Delivery 09/26/25 09:00 Temperature Pulse Rate Respiratory Rate Blood Pressure Pulse Oximetry Oxygen Delivery Room Air Intake/Output Intake/Output: Intake & Output 09/23/25 09/24/25 09/25/25 09/26/25 23:59 23:59 23:59 23:59 Intake Total 1260 1160 840 550 Output Total 700 2050 3200 1200 Balance 560 -890 -2360 -650 Meds/Results Medications: Active Medications Generic Name Dose Route Start Last Admin Trade Name Freq PRN Reason Stop Dose Admin Acetaminophen 500 mg 09/15/25 23:55 Acetaminophen 500 Mg Tablet PO Q6H PRN Mild Pain (1-3) or Fever Aspirin 81 mg 09/16/25 09:00 09/26/25 08:30 Aspirin 81 Mg Enteric Tablet PO 81 mg DAILY MO Administration Atorvastatin Calcium 80 mg 09/15/25 23:55 09/16/25 01:08 Atorvastatin 40 Mg Tablet PO 80 mg On Hold: 09/16/25 09:30 HS MO Administration Clopidogrel Bisulfate 75 mg 09/16/25 09:00 09/26/25 08:30 Clopidogrel Bisulfate 75 Mg Tablet PO 75 mg DAILY MO Administration Dextrose 12.5 gm 09/15/25 23:51 Dextrose 50% 25 Gm/50 Ml Syringe IV PUSH PRN PRN Hypoglycemia Protocol Glucose 15 gm 09/15/25 23:51 Glucose Oral Gel 15 Gm Of Glucse In 37.5 Gm Tube PO PRN PRN Hypoglycemia Protocol Heparin Sodium (Porcine) 5,000 units 09/16/25 22:00 09/26/25 05:41 Heparin Sodium 5,000 Units/Ml Vial SUB-Q 5,000 units Q8HR MO Administration Dextrose 1,000 mls @ 100 mls/hr 09/15/25 23:51 Dextrose 5% 1,000 Ml IVPB PRN PRN Hypoglycemia Protocol Insulin Aspart 2 - 5 units 09/16/25 08:00 09/26/25 08:32 Insulin Aspart (*Bkc) 100 Units/Ml SUB-Q Not Given TIDWM [facility] Protocol Insulin Aspart 1 - 2 units 09/16/25 00:05 09/25/25 21:03 Insulin Aspart (*Bkc) 100 Units/Ml SUB-Q Not Given HS [facility] Protocol Insulin Aspart 5 units 09/25/25 08:00 09/26/25 08:34 Insulin Aspart (*Bkc) 100 Units/Ml SUB-Q Not Given TIDWM [facility] Insulin Glargine 10 units 09/25/25 09:00 09/26/25 08:31 Insulin Glargine (*Bkc) 100 Units/Ml SUB-Q Not Given DAILY [facility] Loperamide HCl 2 mg 09/16/25 14:06 09/18/25 08:06 Loperamide Hcl 2 Mg Capsule PO 2 mg PRN PRN Administration Diarrhea Metoprolol Tartrate 50 mg 09/15/25 23:55 09/26/25 08:30 Metoprolol Tartrate 50 Mg Tab PO 50 mg Q12HR MO Administration Oxycodone HCl 5 mg 09/24/25 18:32 09/26/25 08:48 Oxycodone Hcl (*Crx) 5 Mg Tab Ir PO 5 mg Q6H PRN Administration moderate to severe pain Pantoprazole Sodium 40 mg 09/15/25 23:55 09/25/25 21:06 Pantoprazole 40 Mg Tablet PO 40 mg HS MO Administration Sodium Bicarbonate 650 mg 09/19/25 10:55 09/26/25 08:31 Sodium Bicarbonate Tab 650 Mg Tablet PO 650 mg BID MO Administration Radiology Results: ITS Impressions Retroperitoneum Ultrasound 09/16/25 18:04 IMPRESSION: Nonobstructive right renal stone measures up to 1.4 cm. Bilateral renal cysts. Abdomen/Pelvis CT 09/16/25 20:16 IMPRESSION: No acute abnormality is noted in the abdomen and pelvis. All CT scans at this facility are performed using low dose modulation techniques as appropriate to perform exam including the following: automated exposure control; use of iterative reconstruction technique; adjustment of the mA and/or kV according to patient size (this includes techniques or standardized protocols for targeted exams where dose is matched to indication/reason for exam). Chest X-Ray 09/18/25 09:53 IMPRESSION: 1. No acute cardiopulmonary findings given portable technique. Elbow X-Ray 09/23/25 13:29 Impression: No acute fracture or malalignment. Labs Labs: Laboratory Results - last 24 hr 09/16/25 09/25/25 09/25/25 09:14 11:34 16:04 WBC RBC Hgb Hct MCV MCH MCHC RDW Plt Count MPV Immature Gran % (Auto) Neut % (Auto) Lymph % (Auto) Coke % (Auto) Eos % (Auto) Baso % (Auto) Lymph # (Auto) Coke # (Auto) Eos # (Auto) Baso # (Auto) Abs Immat Gran (auto) Absolute Neuts (auto) Absolute Nucleated RBC Nucleated RBC % Sodium Potassium Chloride Carbon Dioxide Anion Gap BUN Creatinine Estim Creat Clear Calc Estimated GFR Glucose POC Capillary Glucose 87 93 Calcium Phosphorus Albumin Stool Lactoferrin 68.57 H 09/25/25 09/26/25 09/26/25 20:00 06:05 06:06 WBC 11.9 H RBC 3.48 L Hgb 9.7 L Hct 29.8 L MCV 85.6 MCH 27.9 MCHC 32.6 RDW 15.8 H Plt Count 149 L MPV 12.3 H Immature Gran % (Auto) 0.9 H Neut % (Auto) 88.0 H Lymph % (Auto) 6.1 L Coke % (Auto) 3.4 Eos % (Auto) 1.2 Baso % (Auto) 0.4 Lymph # (Auto) 0.72 L Coke # (Auto) 0.4 Eos # (Auto) 0.1 Baso # (Auto) 0.1 Abs Immat Gran (auto) 0.11 H Absolute Neuts (auto) 10.5 H Absolute Nucleated RBC 0.000 Nucleated RBC % 0.0 Sodium 140 Potassium 4.3 Chloride 104 Carbon Dioxide 18 L Anion Gap 18 H BUN 131 H* Creatinine 13.67 H Estim Creat Clear Calc 4 Estimated GFR 3 L Glucose 92 POC Capillary Glucose 94 Calcium 7.3 L Phosphorus 9.8 H Albumin 3.5 Stool Lactoferrin 09/26/25 07:53 WBC RBC Hgb Hct MCV MCH MCHC RDW Plt Count MPV Immature Gran % (Auto) Neut % (Auto) Lymph % (Auto) Coke % (Auto) Eos % (Auto) Baso % (Auto) Lymph # (Auto) Coke # (Auto) Eos # (Auto) Baso # (Auto) Abs Immat Gran (auto) Absolute Neuts (auto) Absolute Nucleated RBC Nucleated RBC % Sodium Potassium Chloride Carbon Dioxide Anion Gap BUN Creatinine Estim Creat Clear Calc Estimated GFR Glucose POC Capillary Glucose 96 Calcium Phosphorus Albumin Stool Lactoferrin Quality VTE Prophylaxis VTE prophylaxis: pharmacologic ordered
[2025-09-26] MEDS: ONDANSETRON INJ 4 MG/2 ML VIAL IV PUSH ×2 (12:00→17:34)
[2025-09-26] MEDS: PANTOPRAZOLE 40 MG TABLET PO (21:16)
[2025-09-27 05:53] VITALS: BP 147/64; PULSE 69; RESP 20; TEMP 36.4; O2SAT 88
[2025-09-27 06:03] VITALS: O2SAT 94
[2025-09-27 06:40] LABS: Albumin Level 3.5 g/dL (3.5-5.1); Anion Gap 18 mmol/L (4-12); Calcium 7.4 mg/dL (8.4-10.2); Carbon Dioxide 17 mmol/L (22-30); Chloride 105 mmol/L (98-107); Estimated CRCL calculation 5 ml/min; Estimated Glomerular Filt Rate 3; Glucose 90 mg/dL (65-110); Potassium 4.4 mmol/L (3.4-5.0); Sodium 140 mmol/L (137-145)
[2025-09-27 06:48] LABS: Blood Urea Nitrogen 126 mg/dL (7-17)
[2025-09-27 08:00] VITALS: PULSE 69; RESP 20; O2SAT 94
[2025-09-27] MEDS: SODIUM BICARBONATE TAB 650 MG TABLET PO ×2 (08:51→16:51)
[2025-09-27] MEDS: CLOPIDOGREL BISULFATE 75 MG TABLET PO (08:51)
[2025-09-27] MEDS: ASPIRIN 81 MG ENTERIC TABLET PO (08:51)
[2025-09-27 08:56] VITALS: PULSE 69
[2025-09-27] MEDS: METOPROLOL TARTRATE 50 MG TAB PO ×2 (08:56→21:10)
--- NOTE | 2025-09-27 11:57 | P.PNNP_ITS ---
Progress Note: A&P Assessment and Plan (1) Acute kidney injury: Code(s): N17.9 - Acute kidney failure, unspecified Status: Acute Assessment and Plan: * labs noted * relative stability if not mild improvement noted in the last 24 hours * continue to make good urine output * possible renal recovery??? * as noted by labs on presentation/admission (creatinine 6.9mg/dL) * multifactorial etiology: * #3 * prerenal factors (diarrhea) * diuretic use prior to admission * infection (UTI?) * other(? * evaluation to date noted: * renal ultrasound w/o obstruction * urine electrolytes prerenal (by FeUrea) * urine eosinophils negative * UA suggests infection * CPK trending down * proteinuria noted * s/p bicarb gtt for urinary alkalinization along with metabolic acidosis * follow volume status closely * responsive to diuretic therapy (as noted with trial dose of IV bumex on 09/21) * continue to make good urine output * remains at risk for CARDIOVASCULAR TECH/dialysis * HOWEVER, patient has made it quite clear that she is not willing to do renal replacement therapy/dialysis * follow trend of repeat labs and UOP (2) Stage 4 chronic kidney disease: Code(s): N18.4 - Chronic kidney disease, stage 4 (severe) Status: Chronic Assessment and Plan: * baseline creatine has been running ~ 2.0 - 2.7mg/dl in the last couple of years * though to be secondary to DM, HTN, vascular disease, and age-related changes based on outpatient evaluation: * fluctuations in kidney function seem to be related to issues and problems with recurrent kidney stones/nephrolithiasis as well as UTIs (3) Rhabdomyolysis: Code(s): M62.82 - Rhabdomyolysis Status: Acute Assessment and Plan: * as noted by elevated CPK levels * presumably precipitated by #4 * follow trend of CPK - now normalized (4) Status post fall: Code(s): Z91.81 - History of falling Status: Acute Assessment and Plan: * as noted by admission history * mechanical in nature * PT/OT as tolerated (5) Diarrhea: Code(s): R19.7 - Diarrhea, unspecified Status: Acute Assessment and Plan: * improvement if not resolving * CT of A/P negative * stool culture with light growth of Campy. jejuni ssp. jejuni * imodium PRN (6) Urinary tract infection: Qualifiers: Hematuria presence: without hematuria Urinary tract infection type: s ite unspecified Qualified Code(s): N39.0 - Urinary tract infection, site not specified Code(s): N39.0 - Urinary tract infection, site not specified Status: Acute Assessment and Plan: * admission UA suggestive * follow culture results - E.coli * completed course of antibiotics (7) Essential hypertension: Code(s): I10 - Essential (primary) hypertension Status: Acute Assessment and Plan: * reasonable control * follow trend of hemodynamics (8) Type 2 diabetes mellitus with diabetic chronic kidney disease: Qualifiers: Diabetes mellitus terminologist insulin use: with terminologist use Chronic kidney disease stage: stage 4 (severe) Qualified Code(s): E11.22 - Type 2 diabetes mellitus with diabetic chronic kidney disease; N18.4 - Chronic kidney disease, stage 4 (severe); Z79.4 - terminologist (current) use of insulin Code(s): E11.22 - Type 2 diabetes mellitus with diabetic chronic kidney disease Status: Acute Assessment and Plan: * follow accu-cheks * glycemic control per hospitalist Not opposed to discharge from my perspective as she is not interested in renal replacement therapy/dialysis -- I suppose it is possible her renal function could improve/recovery as she continues to make good urine output as noted but difficult to say for sure particularly since she had advanced kidney disease at baseline. Will continue to follow from a distance. L Subjective Date/time seen: 09/27/25 11:57 Interval history: Follow-up for acute kidney injury/acute renal failure on chronic kidney disease. Renal function/creatinine as well as BUN better today and continues to make good urine output; no apparent distress noted at this time; issues with discharge planning noted and trying to be worked out by case management. Exam 2 Narrative: General: elderly but WD/WN female in NAD Heart: normal S1 and S2; no rub Lungs: clear anteriorly Abdomen: soft, nontender, nondistended, positive bowel sounds Extremities: no cyanosis or clubbing; no edema Skin: warm and dry Objective Data Vital Signs Vital Signs: Vital Signs Temp Pulse Resp BP Pulse Ox O2 Del Method O2 Flow Rate 09/27/25 08:56 69 09/27/25 08:00 69 20 94 Room Air 09/27/25 06:03 94 Room Air 09/27/25 05:53 97.6 F 69 20 147/64 H 88 L 09/26/25 21:14 70 09/26/25 20:50 94 Room Air 09/26/25 20:36 97 Nasal Cannula 2 09/26/25 20:34 97.5 F L 70 20 153/63 H 88 L Intake/Output Intake/Output: Intake & Output 09/24/25 09/25/25 09/26/25 09/27/25 23:59 23:59 23:59 23:59 Intake Total 1160 525 312 7283 Output Total 2050 3200 2550 1999 [facility] -[phone] Meds/Results Medications: Active Medications Generic Name Dose Route Start Last Admin Trade Name Freq PRN Reason Stop Dose Admin Acetaminophen 500 mg 09/15/25 23:55 Acetaminophen 500 Mg Tablet PO Q6H PRN Mild Pain (1-3) or Fever Aspirin 81 mg 09/16/25 09:00 09/27/25 08:51 Aspirin 81 Mg Enteric Tablet PO 81 mg DAILY MO Administration Atorvastatin Calcium 80 mg 09/15/25 23:55 09/16/25 01:08 Atorvastatin 40 Mg Tablet PO 80 mg On Hold: 09/16/25 09:30 HS MO Administration Clopidogrel Bisulfate 75 mg 09/16/25 09:00 09/27/25 08:51 Clopidogrel Bisulfate 75 Mg Tablet PO 75 mg DAILY MO Administration Dextrose 12.5 gm 09/15/25 23:51 Dextrose 50% 25 Gm/50 Ml Syringe IV PUSH PRN PRN Hypoglycemia Protocol Glucose 15 gm 09/15/25 23:51 Glucose Oral Gel 15 Gm Of Glucse In 37.5 Gm Tube PO PRN PRN Hypoglycemia Protocol Heparin Sodium (Porcine) 5,000 units 09/16/25 22:00 09/27/25 13:48 Heparin Sodium 5,000 Units/Ml Vial SUB-Q 5,000 units Q8HR MO Administration Dextrose 1,000 mls @ 100 mls/hr 09/15/25 23:51 Dextrose 5% 1,000 Ml IVPB PRN PRN Hypoglycemia Protocol Insulin Aspart 2 - 5 units 09/16/25 08:00 09/27/25 13:35 Insulin Aspart (*Bkc) 100 Units/Ml SUB-Q Not Given TIDWM MO Protocol Insulin Aspart 1 - 2 units 09/16/25 00:05 09/26/25 21:12 Insulin Aspart (*Bkc) 100 Units/Ml SUB-Q Not Given HS [facility] Protocol Insulin Aspart 5 units 09/25/25 08:00 09/27/25 13:48 Insulin Aspart (*Bkc) 100 Units/Ml SUB-Q 5 units TIDWM MO Administration Insulin Glargine 10 units 09/25/25 09:00 09/27/25 09:06 Insulin Glargine (*Bkc) 100 Units/Ml SUB-Q Not Given DAILY MO Loperamide HCl 2 mg 09/16/25 14:06 09/18/25 08:06 Loperamide Hcl 2 Mg Capsule PO 2 mg PRN PRN Administration Diarrhea Metoprolol Tartrate 50 mg 09/15/25 23:55 09/27/25 08:56 Metoprolol Tartrate 50 Mg Tab PO 50 mg Q12HR MO Administration Ondansetron HCl 4 mg 09/26/25 11:50 09/26/25 17:34 Ondansetron Inj 4 Mg/2 Ml Vial IV PUSH 4 mg Q4H PRN Administration Nausea And Vomiting Oxycodone HCl 5 mg 09/24/25 18:32 09/26/25 08:48 Oxycodone Hcl (*Crx) 5 Mg Tab Ir PO 5 mg Q6H PRN Administration moderate to severe pain Pantoprazole Sodium 40 mg 09/15/25 23:55 09/26/25 21:16 Pantoprazole 40 Mg Tablet PO 40 mg HS MO Administration Sodium Bicarbonate 650 mg 09/19/25 10:55 09/27/25 16:51 Sodium Bicarbonate Tab 650 Mg Tablet PO 650 mg BID MO Administration Radiology Results: ITS Impressions Retroperitoneum Ultrasound 09/16/25 18:04 IMPRESSION: Nonobstructive right renal stone measures up to 1.4 cm. Bilateral renal cysts. Abdomen/Pelvis CT 09/16/25 20:16 IMPRESSION: No acute abnormality is noted in the abdomen and pelvis. All CT scans at this facility are performed using low dose modulation techniques as appropriate to perform exam including the following: automated exposure control; use of iterative reconstruction technique; adjustment of the mA and/or kV according to patient size (this includes techniques or standardized protocols for targeted exams where dose is matched to indication/reason for exam). Chest X-Ray 09/18/25 09:53 IMPRESSION: 1. No acute cardiopulmonary findings given portable technique. Elbow X-Ray 09/23/25 13:29 Impression: No acute fracture or malalignment. Labs Labs: Laboratory Tests 09/26/25 06:05 09/27/25 05:47 Calcium 7.4 L Phosphorus 10.6 H Albumin 3.5
[2025-09-27] MEDS: INSULIN ASPART (*BKC) 100 UNITS/ML SUB-Q (13:48)
[2025-09-27 14:00] VITALS: BP 159/80; PULSE 74; RESP 18; TEMP 37.1; O2SAT 94
--- NOTE | 2025-09-27 15:19 | PM.IMPN2 ---
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 gauger (current) use of insulin Status: Acute (2) Morbid obesity: Code(s): E66.01 - Morbid (severe) obesity due to excess calories Status: Acute (3) JOSE E (acute kidney injury): Code(s): N17.9 - Acute kidney failure, unspecified Status: Acute (4) Chronic renal failure, stage 4 (severe): Code(s): N18.4 - Chronic kidney disease, stage 4 (severe) Status: Chronic (5) Diarrhea: Code(s): R19.7 - Diarrhea, unspecified Status: Acute (6) Rhabdomyolysis: Code(s): M62.82 - Rhabdomyolysis Status: Acute Plan 75-year-old female with past medical history of obesity, CKD stage 4, coronary artery disease, insulin-dependent diabetes presenting to [facility] on 09/15/2025 after a mechanical fall. Then transferred to [facility], patient of Dr. Hdez Nephrology. She has been having diarrhea for 5 days. She developed JOSE E on pre-existing CKD along with severe rhabdomyolysis after fall. upon arrival patient CK was >16,000 it has trended down to 321. her clinical symptoms are improving however SCr and BUN rising, 13.03 and 136 respectively but her potassium remains normal 4.1. c/o pain in her right elbow, patient had fell prior to coming to the hospital, x-ray of the elbow is negative any acute injury, patient does not want HD. Then transferred to [facility], patient of Dr. Hdez Nephrology. Recent Fall: Low back pain Mechanical Unable to get up for extended period of time. Reports low back pain controlled with oxycodone intermittently. Does not wish to try acetaminophen Declined x-ray low back. Able to raise leg and no numbness or tingling, TTP low back PT/OT when appropriate Diarrhea: Improving overall but monitoring C diff negative Stool culture unremarkable CT abdomen pelvis without contrast was unremarkable Brat diet Imodium p.r.n. Resolved. JOSE E I on pre-existing CKD stage IV: Rhabdomyolysis. Creatnine 13.49, has been trending up, Potassium normal. Bicarb stable/improved Improving CPK renal ultrasound shows nonobstructive kidney disease Nephrology following, patient not currently interested in dialysis. --Bicarb drip changed to po bicarb 650mg BID --Creatinine stable, slightly improved. Potassium normal, phosphorus trending up, not on oxygen --Will hold statin --monitor urine output --Lott in place --Patient is interested in hospice care but her son is not. She is going with her son's wishes and will go into a SNF. Will likely need to do a peer to peer because a SNF will not want to accept her in her current condition with a creatinine of 13. Can discuss with insurance that this is the patient's wishes although for some reason she does not want to be on hospice either. Diabetes mellitus: Home meds: Humulin U-500 100 units with breakfast, 55 units with lunch, 90 units with dinner Currently on Lantus 31 units hs. Blood sugars under 100 tonight. 117<145>87, 97, 92 Changed lantus to 10 units daily AM, Lispro 5 units TID with meals, SSI. Blood sugars well controlled --Continue to adjust insulin as needed Code status: DNR DVT prophylaxis: Heparin subq Disposition: Discussing plan for hospice, which may be after discharge at some point Subjective Date/time seen: 09/27/25 15:19 Interval history: Patient doing well today with no complaints. She states that she is wanting to go on hospice but her son does not want her to go on hospice. Ultimately she will do whatever her son wishes. Discussed with care coordination will send to SNF. Unknown if stiff will accept her due to her poor kidney function. May have to do peer to peer in regards to this. Will wait and see to hear back from care coordination. She may end up having to go on hospice any way to discharge back to senior care. Exam Narrative: GENERAL: Comfortable, no acute distress, morbid obesity HENMT: moist mucous membranes EYES: EOM intact b/l RESPIRATORY: clear to auscultation, no increased respiratory effort CARDIO: Regular rate and rhythm GI: soft, nontender, bowel sounds present SKIN/EXTREMITIES: no rashes, no redness or tenderness Objective Data Vital Signs Vital Signs: Vital Signs - 24 hr 09/26/25 20:34 09/26/25 20:36 09/26/25 20:50 Temperature 97.5 F L Pulse Rate 70 Respiratory Rate 20 Blood Pressure 153/63 H Pulse Oximetry 88 L 97 94 Oxygen Delivery Nasal Cannula Room Air Oxygen Flow Rate 2 09/26/25 21:14 09/27/25 05:53 09/27/25 06:03 Temperature 97.6 F Pulse Rate 70 69 Respiratory Rate 20 Blood Pressure 147/64 H Pulse Oximetry 88 L 94 Oxygen Delivery Room Air Oxygen Flow Rate 09/27/25 08:00 09/27/25 08:56 09/27/25 14:00 Temperature 98.7 F Pulse Rate 69 69 74 Respiratory Rate 20 18 Blood Pressure 159/80 H Pulse Oximetry 94 94 Oxygen Delivery Room Air Oxygen Flow Rate Intake/Output Intake/Output: Intake & Output 09/24/25 09/25/25 09/26/25 09/27/25 23:59 23:59 23:59 23:59 Intake Total 1160 840 650 880 Output Total 2050 3200 2550 1000 Balance -890 -2360 -1900 -120 Meds/Results Medications: Active Medications Generic Name Dose Route Start Last Admin Trade Name Freq PRN Reason Stop Dose Admin Acetaminophen 500 mg 09/15/25 23:55 Acetaminophen 500 Mg Tablet PO Q6H PRN Mild Pain (1-3) or Fever Aspirin 81 mg 09/16/25 09:00 09/27/25 08:51 Aspirin 81 Mg Enteric Tablet PO 81 mg DAILY MO Administration Atorvastatin Calcium 80 mg 09/15/25 23:55 09/16/25 01:08 Atorvastatin 40 Mg Tablet PO 80 mg On Hold: 09/16/25 09:30 HS MO Administration Clopidogrel Bisulfate 75 mg 09/16/25 09:00 09/27/25 08:51 Clopidogrel Bisulfate 75 Mg Tablet PO 75 mg DAILY MO Administration Dextrose 12.5 gm 09/15/25 23:51 Dextrose 50% 25 Gm/50 Ml Syringe IV PUSH PRN PRN Hypoglycemia Protocol Glucose 15 gm 09/15/25 23:51 Glucose Oral Gel 15 Gm Of Glucse In 37.5 Gm Tube PO PRN PRN Hypoglycemia Protocol Heparin Sodium (Porcine) 5,000 units 09/16/25 22:00 09/27/25 13:48 Heparin Sodium 5,000 Units/Ml Vial SUB-Q 5,000 units Q8HR MO Administration Dextrose 1,000 mls @ 100 mls/hr 09/15/25 23:51 Dextrose 5% 1,000 Ml IVPB PRN PRN Hypoglycemia Protocol Insulin Aspart 2 - 5 units 09/16/25 08:00 09/27/25 13:35 Insulin Aspart (*Bkc) 100 Units/Ml SUB-Q Not Given TIDWM MO Protocol Insulin Aspart 1 - 2 units 09/16/25 00:05 09/26/25 21:12 Insulin Aspart (*Bkc) 100 Units/Ml SUB-Q Not Given HS MO Protocol Insulin Aspart 5 units 09/25/25 08:00 09/27/25 13:48 Insulin Aspart (*Bkc) 100 Units/Ml SUB-Q 5 units TIDWM MO Administration Insulin Glargine 10 units 09/25/25 09:00 09/27/25 09:06 Insulin Glargine (*Bkc) 100 Units/Ml SUB-Q Not Given DAILY MO Loperamide HCl 2 mg 09/16/25 14:06 09/18/25 08:06 Loperamide Hcl 2 Mg Capsule PO 2 mg PRN PRN Administration Diarrhea Metoprolol Tartrate 50 mg 09/15/25 23:55 09/27/25 08:56 Metoprolol Tartrate 50 Mg Tab PO 50 mg Q12HR MO Administration Ondansetron HCl 4 mg 09/26/25 11:50 09/26/25 17:34 Ondansetron Inj 4 Mg/2 Ml Vial IV PUSH 4 mg Q4H PRN Administration Nausea And Vomiting Oxycodone HCl 5 mg 09/24/25 18:32 09/26/25 08:48 Oxycodone Hcl (*Crx) 5 Mg Tab Ir PO 5 mg Q6H PRN Administration moderate to severe pain Pantoprazole Sodium 40 mg 09/15/25 23:55 09/26/25 21:16 Pantoprazole 40 Mg Tablet PO 40 mg HS MO Administration Sodium Bicarbonate 650 mg 09/19/25 10:55 09/27/25 08:51 Sodium Bicarbonate Tab 650 Mg Tablet PO 650 mg BID OM Administration Radiology Results: ITS Impressions Retroperitoneum Ultrasound 09/16/25 18:04 IMPRESSION: Nonobstructive right renal stone measures up to 1.4 cm. Bilateral renal cysts. Abdomen/Pelvis CT 09/16/25 20:16 IMPRESSION: No acute abnormality is noted in the abdomen and pelvis. All CT scans at this facility are performed using low dose modulation techniques as appropriate to perform exam including the following: automated exposure control; use of iterative reconstruction technique; adjustment of the mA and/or kV according to patient size (this includes techniques or standardized protocols for targeted exams where dose is matched to indication/reason for exam). Chest X-Ray 09/18/25 09:53 IMPRESSION: 1. No acute cardiopulmonary findings given portable technique. Elbow X-Ray 09/23/25 13:29 Impression: No acute fracture or malalignment. Labs Labs: Laboratory Results - last 24 hr 09/26/25 09/26/25 09/27/25 17:02 19:43 05:47 Sodium 140 Potassium 4.4 Chloride 105 Carbon Dioxide 17 L Anion Gap 18 H BUN 126 H* Creatinine 12.56 H Estim Creat Clear Calc 5 Estimated GFR 3 L Glucose 90 POC Capillary Glucose 107 H 122 H Calcium 7.4 L Phosphorus 10.6 H Albumin 3.5 09/27/25 09/27/25 07:35 11:17 Sodium Potassium Chloride Carbon Dioxide Anion Gap BUN Creatinine Estim Creat Clear Calc Estimated GFR Glucose POC Capillary Glucose 94 115 H Calcium Phosphorus Albumin
[2025-09-27] MEDS: PANTOPRAZOLE 40 MG TABLET PO (21:10)
[2025-09-27 22:00] VITALS: BP 172/68; PULSE 77; RESP 18; TEMP 36.6; O2SAT 96
[2025-09-28 06:00] VITALS: BP 180/82; PULSE 72; RESP 18; TEMP 36.4; O2SAT 92
[2025-09-28 06:16] LABS: Hematocrit 30.1 % (37.0-47.0); Hemoglobin 9.6 g/dL (12.0-15.0); Immature Granulocyte Percent A 0.7 % (0-0.5); Lymphocytes Absolute Auto 0.74 K/mm3 (0.9-3.2); Mean Corpuscular HGB Conc 31.9 g/dl (32-36); Mean Corpuscular Hemoglobin 27.9 pg (26-34); Mean Corpuscular Volume 87.5 fl (80-100); Nucleated Red Blood Cells Absolute Auto 0.000 K/mm3 (0.0-0.012); Nucleated Red Blood Cells Perc 0.0 % (0.0-0.2); Platelet Count Result 172 k/mm3 (150-375); Red Blood Count 3.44 M/mm3 (4.2-5.4); White Blood Count 10.6 K/mm3 (4.5-10.0)
[2025-09-28 06:46] LABS: Alanine Aminotransferase 20 U/L (6-35); Albumin Level 3.5 g/dL (3.5-5.1); Alkaline Phosphatase 75 U/L (38-126); Anion Gap 14 mmol/L (4-12); Aspartate Amino Transferase 24 U/L (14-36); Bilirubin,Total 0.6 mg/dL (0.2-1.3); Calcium 7.6 mg/dL (8.4-10.2); Carbon Dioxide 22 mmol/L (22-30); Chloride 106 mmol/L (98-107); Estimated CRCL calculation 5 ml/min; Estimated Glomerular Filt Rate 3; Glucose 97 mg/dL (65-110); Sodium 142 mmol/L (137-145); Total Protein 7.1 g/dL (6.3-8.2)
[2025-09-28 07:07] LABS: Blood Urea Nitrogen 120 mg/dL (7-17); Potassium 4.3 mmol/L (3.4-5.0)
[2025-09-28 08:38] VITALS: PULSE 72
[2025-09-28] MEDS: CLOPIDOGREL BISULFATE 75 MG TABLET PO (08:38)
[2025-09-28] MEDS: METOPROLOL TARTRATE 50 MG TAB PO (08:38)
[2025-09-28] MEDS: ASPIRIN 81 MG ENTERIC TABLET PO (08:38)
[2025-09-28] MEDS: SODIUM BICARBONATE TAB 650 MG TABLET PO (08:38)
--- NOTE | 2025-09-28 11:24 | P.DS_ITS ---
DS: Admitting Diagnosis Discharge Date 09/28/25 Admitting Diagnosis Fall Rhabdomyolysis JOSE E on CKD DS: Discharge Diagnosis Discharge Diagnosis (1) Status post fall: Code(s): Z91.81 - History of falling Status: Acute (2) Benign hypertension with chronic kidney disease: Code(s): I12.9 - Hypertensive chronic kidney disease with stage 1 through stage 4 chronic kidney disease, or unspecified chronic kidney disease Status: Acute (3) Coronary artery disease: Code(s): I25.10 - Atherosclerotic heart disease of [place] coronary artery without angina pectoris Status: Acute (4) Type 2 diabetes mellitus with hyperglycemia, with long-term current use of insulin: Code(s): E11.65 - Type 2 diabetes mellitus with hyperglycemia; Z79.4 - long term care administrator (current) use of insulin Status: Acute (5) Diarrhea: Code(s): R19.7 - Diarrhea, unspecified Status: Acute (6) Acute kidney injury: Code(s): N17.9 - Acute kidney failure, unspecified Status: Acute (7) Chronic renal failure, stage 4 (severe): Code(s): N18.4 - Chronic kidney disease, stage 4 (severe) Status: Chronic (8) Weakness: Code(s): R53.1 - Weakness Status: Acute DS: Summary Hospital Course Reason for hospitalization: Fall Rhabdomyolysis JOSE E on CKD stage 4 Hospital Course: 75-year-old female with past medical history of obesity, CKD stage 4, coronary artery disease, insulin-dependent diabetes presenting to [facility] on 09/15/2025 after a mechanical fall. Then transferred to [facility], patient of Dr. Hdez Nephrology. She was having diarrhea for 5 days prior to admission. Tested negative for C diff. Presented with severe rhabdomyolysis along with Jose E I on pre-existing CKD. Nephrology was consulted. Treated with IV fluids for rhabdomyolysis, improvement in CPK levels. Renal ultrasound showed nonobstructive kidney disease. Patient continued to have worsening kidney function. Patient was offered dialysis but she has refused for dialysis. She understands the risk of untreated worsening kidney function. Hospice was offered as well, which she has refused. Continues to have generalized weakness, evaluated by Physical therapy and Occupational therapy team. She is being discharged to SNF. Patient understands she is a high risk for readmission given her on treated/worsening kidney function. Her insulin has been stopped due to less and less/negligible requirement of insulin for her glucose management. Patient is currently DNR. Status at Discharge Overall status at discharge: patient is not back to baseline Time Spent with Patient Time attestation: Total time spent providing and/or coordinating discharge services:33 mins Exam Narrative: HEENT: PERRL, sclerae nonicteric, pharyngeal mucosa pink and intact NECK: No JVD CHEST: Clear to auscultation. Normal effort HEART: NL S1/S2, regular, no murmur ABDOMEN: BS+, soft, nontender, no mass, no bruits EXTREMITIES: No cyanosis, edema, or clubbing NEUROLOGIC: CN intact and symmetric to inspection MUSCULOSKELETAL: Tone and strength symmetric PSYCH: Alert. Oriented to person, place, and time DS: Data Data Completed and Pending Labs on day of discharge: Labs from last 24 hours 09/28/25 09/28/25 09/27/25 07:28 05:36 20:47 WBC 10.6 H RBC 3.44 L Hgb 9.6 L Hct 30.1 L MCV 87.5 MCH 27.9 MCHC 31.9 L RDW 15.9 H Plt Count 172 MPV 12.3 H Immature Gran % (Auto) 0.7 H Neut % (Auto) 83.5 H Lymph % (Auto) 7.0 L [place] % (Auto) 6.0 Eos % (Auto) 2.1 Baso % (Auto) 0.7 Lymph # (Auto) 0.74 L [place] # (Auto) 0.6 Eos # (Auto) 0.2 Baso # (Auto) 0.1 Abs Immat Gran (auto) 0.07 H Absolute Neuts (auto) 8.8 H Absolute Nucleated RBC 0.000 Nucleated RBC % 0.0 Sodium 142 Potassium 4.3 Chloride 106 Carbon Dioxide 22 Anion Gap 14 H BUN 120 H* Creatinine 11.98 H Estim Creat Clear Calc 5 Estimated GFR 3 L Glucose 97 POC Capillary Glucose 98 110 H Calcium 7.6 L Phosphorus 9.2 H Total Bilirubin 0.6 AST 24 ALT 20 Alkaline Phosphatase 75 Total Protein 7.1 Albumin 3.5 09/27/25 09/27/25 16:35 11:17 WBC RBC Hgb Hct MCV MCH MCHC RDW Plt Count MPV Immature Gran % (Auto) Neut % (Auto) Lymph % (Auto) [place] % (Auto) Eos % (Auto) Baso % (Auto) Lymph # (Auto) [place] # (Auto) Eos # (Auto) Baso # (Auto) Abs Immat Gran (auto) Absolute Neuts (auto) Absolute Nucleated RBC Nucleated RBC % Sodium Potassium Chloride Carbon Dioxide Anion Gap BUN Creatinine Estim Creat Clear Calc Estimated GFR Glucose POC Capillary Glucose 96 115 H Calcium Phosphorus Total Bilirubin AST ALT Alkaline Phosphatase Total Protein Albumin Discharge Plan Discharge Attending physician on discharge: Zia Howe Consulting providers: Everett Hdez; Violetta Urena; Tanner Faria Discharging Clinician: Tanner Faria Anticipated Discharge Date/Time: 09/26/25 10:56 Patient Disposition: SNF Activity: as tolerated Diet: diabetic and renal Discharge Instructions: Take medications as prescribed Monitor blood pressures Take caution while standing, rising, or moving Change positions slowly taking a break between each position change If you standing feel dizzy sit back down and take a break Encouraged to continue with yearly vaccinations Return to the emergency department if you develop sudden shortness of breath, chest pain, nausea, vomiting, upset stomach or intractable diarrhea Return to the emergency department if you develop fever greater than 101.5 Follow-up with the primary care physician within 1-2 weeks Thank you for choosing [facility] for your healthcare needs Patient Instructions: Acute Kidney Injury (GEN), Urinary Tract Infection in Women (GEN), Chronic Kidney Disease (GEN), Fall Prevention for Older Adults (GEN), Urinary Tract Infection in Older Adults (GEN) Patient Language: Burmese Stand Alone Forms: General Discharge Information Follow-up/Referrals: James Candelaria DO [Primary Care Provider, Family Practice] Everett Hdez MD [Physician, Nephrology] - 1 Week Discharge Medications: Continued clopidogrel 75 mg tablet 75 mg PO DAILY nitroglycerin 0.4 mg tablet, sublingual 0.4 mg sublingual Q5M pantoprazole 40 mg tablet,delayed release (DR/EC) 40 mg PO HS atorvastatin 80 mg tablet 80 mg PO HS cholecalciferol (vitamin D3) 50 mcg (2,000 unit) capsule 50 mcg PO HS metoprolol tartrate 50 mg tablet 50 mg PO BID aspirin [Adult Aspirin Regimen] 81 mg tablet,delayed release (DR/EC) 81 mg PO DAILY (DME) lancets [OneTouch Delica Plus Lancet] 33 gauge misc See Rx Instructions .Route Qty: 300 0RF Rx Instructions: As directed 3 times a day (DME) pen needle, diabetic [TRUEplus Pen Needle] 31 gauge x 5/16 needle See Rx Instructions .ROUTE .COMPLEX Qty: 300 0RF Dose Instruction: USE TO CHECK BLOOD GLUCOSE 3 TIMES DAILY Rx Instructions: USE TO CHECK BLOOD GLUCOSE 3 TIMES DAILY (DME) blood-glucose meter [Accu-Chek Guide Glucose Meter] Misc See Rx Instructions .Route Qty: 1 0RF Rx Instructions: use to monitor blood sugars 3 times a day calcitriol 0.25 mcg capsule See Rx Instructions .ROUTE .COMPLEX Qty: 12 6RF Dose Instruction: TAKE ONE CAPSULE BY MOUTH THREE TIMES A WEEK; ADMINISTER/TAKE ON MONDAYS, WEDNESDAYS, AND FRIDAYS Rx Instructions: TAKE ONE CAPSULE BY MOUTH THREE TIMES A WEEK; ADMINISTER/TAKE ON MONDAYS, WEDNESDAYS, AND FRIDAYS (DME) Accu-Chek Guide test strips Strip See Rx Instructions .ROUTE .COMPLEX Qty: 100 1RF Dose Instruction: USE THREE TIMES A DAY TO CHECK BLOOD SUGARS Rx Instructions: USE THREE TIMES A DAY TO CHECK BLOOD SUGARS Discontinued furosemide 20 mg tablet See Rx Instructions .ROUTE .COMPLEX Qty: 180 3RF Dose Instruction: TAKE TWO TABLETS BY MOUTH EVERY MORNING Rx Instructions: TAKE TWO TABLETS BY MOUTH EVERY MORNING Humulin R U-500 (Conc) Kwikpen 500 unit/mL (3 mL) insulin pen See Rx Instructions .ROUTE .COMPLEX MDD 245 Qty: 45 1RF Dose Instruction: INJECT 90 UNITS SUBCUTANEOUSLY WITH BREAKFAST, 50 UNITS WITH LUNCH, AND 80 UNITS WITH SUPPER DAILY Rx Instructions: INJECT 100 UNITS SUBCUTANEOUSLY WITH BREAKFAST, 55 UNITS WITH LUNCH, AND 90 UNITS WITH SUPPER DAILY Date of admission: 09/15/25 23:51 Primary Care Provider: James Candelaria Admitting Provider: Mag Ricci Attending physician on admission: Mag Ricci Condition: Guarded Prognosis
== END 2025-09-28 13:15 | DRG 565 ==
LOC: ANHIMU 09-21 15:27 → ANH3MEDSUR 09-24 07:20 → ANHIMU 09-30 14:16
PROVIDERS: Internal Medicine Critical Care Medicine; Internal Medicine Nephrology; Nurse Practitioner Gerontology; Physician Assistant; Admitting Provider General Practice; PCP Family Medicine; Visit Provider Internal Medicine
DX: T79.6XXA Traumatic ischemia of muscle, initial encounter (principal); E87.0 Hyperosmolality and hypernatremia; N17.9 Acute kidney failure, unspecified; N18.4 Chronic kidney disease, stage 4 (severe); Z68.41 Body mass index [BMI] 40.0-44.9, adult; E87.20 Acidosis, unspecified; N39.0 Urinary tract infection, site not specified; E11.22 Type 2 diabetes mellitus with diabetic chronic kidney disease; W19.XXXA Unspecified fall, initial encounter; E11.65 Type 2 diabetes mellitus with hyperglycemia; I12.9 Hypertensive chronic kidney disease with stage 1 through stage 4 chronic kidney disease, or unspecified chronic kidney disease; R19.7 Diarrhea, unspecified; E87.6 Hypokalemia; I25.10 Atherosclerotic heart disease of native coronary artery without angina pectoris; K21.9 Gastro-esophageal reflux disease without esophagitis; E86.0 Dehydration; M19.90 Unspecified osteoarthritis, unspecified site; E66.01 Morbid (severe) obesity due to excess calories; Z66 Do not resuscitate; Z79.4 Long term (current) use of insulin; Z91.81 History of falling; Z85.3 Personal history of malignant neoplasm of breast; Z95.5 Presence of coronary angioplasty implant and graft; Z87.891 Personal history of nicotine dependence
CPT/HCPCS: 36415; 71045; 73070; 74176; 76770; 80053; 80069; 81001; 82550; 82570; 82948; 83631; 83735; 84100; 84156; 84300; 84484; 84540; 85025; 85999; 86704; 86706; 87045; 87046; 87177; 87340; 87427; 93005; 93306; 97110; 97116; 97161; 97166; 97530; 97535; A9270; J1644; J1815; J1939; J2405; J2543; J3475; J7030; J7070